=== PATIENT | female | born 1960 | race Caucasian/White ===

== ENCOUNTER 2022-11-14 07:07 | Outpatient (CLI) | payer BC, SELFPAY | END 2022-11-14 07:08 | disposition home or self-care (01) | LOC: AMB 11-15 13:31 | PROVIDERS: PCP Family Medicine; Visit Provider Family Medicine | DX: R07.0 Pain in throat (principal); R13.14 Dysphagia, pharyngoesophageal phase | CPT/HCPCS: A0425; A0429 ==

== ENCOUNTER 2022-11-14 07:26 | Day surgery (SDC) | payer BC, SELFPAY ==
[2022-11-14] VITALS (30 sets, daily range): BP systolic 103–156; BP diastolic 60–87; PULSE 94–108; RESP 15–20; TEMP 36.6–38.2; O2SAT 91–100; BMI 28.9
--- NOTE | 2022-11-14 07:59 | CRLHL7_ITS ---
For Patients: As a result of the Century Cures Act, medical imaging exams and procedure reports are released immediately into your electronic medical record. You may view this report before your referring provider. If you have questions, please contact your health care provider. INDICATION: r/o left peritonsillar abscess TECHNIQUE: CT soft tissue of the neck was acquired with ISOUVE 370 93CC IV contrast. COMPARISON: None. FINDINGS: Dental amalgam streak artifact limits evaluation of adjacent structures. Skull base: Unremarkable. Pharynx/Larynx/Trachea: Prominence of the left greater than right palatine tonsils. Heterogenous left intratonsillar hypodensity measuring 1.8 x 2.5 x 2.1 cm. There is associated moderate effacement on the glossal tonsillar sulcus and oropharyngeal airway. Smaller right tonsil hypodensity them during the due to dental amalgam streak artifact. Mild left parapharyngeal inflammation. Effacement of the left piriform sinus. Apposition of the vocal cords. Epiglottis is normal. Salivary glands: Unremarkable. Thyroid gland: Hypodense left thyroid nodule measuring 1.4 cm. Lymph nodes: Left level IIa lymph node measures 1.2 cm. Vessels: Unremarkable for age. Bones: Unremarkable for age. Misc: No inflammation, mass or fluid collection. Lung apices: Unremarkable. IMPRESSION: Prominence of the left greater than right palatine tonsils. Heterogenous left intratonsillar hypodensity measuring 1.8 x 2.5 x 2.1 cm, concerning for intra tonsillar abscess. Mass felt less likely but recommend follow-up to ensure resolution. There is associated moderate effacement on the glossal tonsillar sulcus and oropharyngeal airway. Mild left parapharyngeal inflammation. Nonspecific effacement of the left piriform sinus. Apposition of the vocal cords. Mildly prominent left level 2 lymph node which is nonspecific and may be reactive. Hypodense left thyroid nodule measuring 1.4 cm. Recommend nonemergent thyroid ultrasound if not previously performed. Please note that all CT scans at this facility use dose modulation, iterative reconstruction, and/or weight-based dosing when appropriate to reduce radiation dose to as low as reasonably achievable. Dictated by Panda Fong MD @ 11/14/2022 9:33:09 AM (Electronically Signed)
--- NOTE | 2022-11-14 08:02 | ED_ITS ---
HPI - General Adult General Time Seen by Provider: 08:03 Date Seen: 11/14/22 Chief complaint: Sore Throat Stated complaint: Sore throat Time Seen by Provider: 11/14/22 07:52 Source: patient Mode of arrival: ambulatory Limitations: no limitations History of Present Illness HPI narrative: Patient is a 62-year-old female presents with a significant sore throat left-beckie ed, she has got some muffled voice. Is unable open her mouth fully. Patient reports that she has felt this for last couple of days, she has got a past medical history of hypertension depression and questionable seizure disorder for which is on medication. The patient reports she is able to swallow but difficulty she has good amount of pain on the left side of her throat no other specific concerns, no chest pain, no shortness of breath, no breathing difficulty. She has been generally healthy recently Related Data Home Medications Medication Instructions Recorded Confirmed folic acid 1 mg tablet 1 mg PO DAILY 11/14/22 11/14/22 hydroxychloroquine 200 mg tablet 400 mg PO DAILY 11/14/22 11/14/22 levetiracetam 500 mg tablet 500 mg PO BID 11/14/22 11/14/22 lisinopril 10 1 tab PO DAILY 11/14/22 11/14/22 mg-hydrochlorothiazide 12.5 mg tablet venlafaxine 75 mg tablet 225 mg PO Q12H 11/14/22 11/14/22 Allergies Allergy/AdvReac Type Severity Reaction Status Date / Time aspirin Allergy Anaphylaxis Verified 11/14/22 07:39 Review of Systems Status of ROS: Reports: 6 or more systems reviewed and unremarkable except as noted in History and below [facility] Medical History (Updated 11/14/22 @ 11:55 by Alfonso Ventura MD) Abscess, intratonsillar Social History Highest level of school completed/degree received: Bachelor's degree Smoking Status: Never smoker How often do you have a drink containing alcohol: 4 or more times a week Alcohol type: beer How many standard drinks containing alcohol do you have on a typical day: 1 or 2 How often do you have six or more drinks on one occasion: Daily or almost daily AUDIT-C Alcohol total score: 8 Non-prescribed substance use: denies use Caffeine: No service: No Exam Narrative: Exam Narrative: Objective vital signs are unremarkable she is afebrile O2 sat 97% on room air General she is in mild distress and discomfort noncyanotic ThroaShows some swelling around the left peritonsillar area she got diffusely red throat, no tongue swelling, mild exudate in the posterior pharynx Is able to move her neck fully Pulse regular Abdomen benign soft Extremities are no edema Const: Vital Signs, click to edit/add: Vital Signs - 24 hr 11/14/22 07:30 11/14/22 08:26 11/14/22 08:02 Temperature 97.8 F Pulse Rate 102 H Pulse Rate [Left P ulse Oximeter] Pulse Rate [Pulse Oximeter] 102 H Respiratory Rate 20 Blood Pressure 127/75 Blood Pressure [Le ft Arm] Blood Pressure [Ri ght Upper Arm] 145/76 H Pulse Oximetry 97 97 94 Oxygen Delivery Me thod Room Air 11/14/22 08:32 11/14/22 09:32 11/14/22 09:33 Temperature Pulse Rate 101 H 102 H 103 H Pulse Rate [Left P ulse Oximeter] Pulse Rate [Pulse Oximeter] Respiratory Rate Blood Pressure 128/71 120/67 Blood Pressure [Le ft Arm] Blood Pressure [Ri ght Upper Arm] Pulse Oximetry 96 94 94 Oxygen Delivery Me thod 11/14/22 09:45 11/14/22 10:00 11/14/22 10:02 Temperature Pulse Rate 100 101 H 102 H Pulse Rate [Left P ulse Oximeter] Pulse Rate [Pulse Oximeter] Respiratory Rate Blood Pressure 137/81 Blood Pressure [Le ft Arm] Blood Pressure [Ri ght Upper Arm] Pulse Oximetry 93 95 94 Oxygen Delivery Me thod 11/14/22 10:15 11/14/22 10:30 11/14/22 10:32 Temperature Pulse Rate 101 H 102 H 102 H Pulse Rate [Left P ulse Oximeter] Pulse Rate [Pulse Oximeter] Respiratory Rate Blood Pressure 128/60 Blood Pressure [Le ft Arm] Blood Pressure [Ri ght Upper Arm] Pulse Oximetry 94 95 95 Oxygen Delivery Me thod 11/14/22 10:45 11/14/22 13:08 Temperature 99.2 F Pulse Rate 108 H Pulse Rate [Left P ulse Oximeter] 99 Pulse Rate [Pulse Oximeter] Respiratory Rate 18 Blood Pressure Blood Pressure [Le ft Arm] 116/67 Blood Pressure [Ri ght Upper Arm] Pulse Oximetry 95 94 Oxygen Delivery Me thod Room Air Course Vital Signs Vital signs: Initial Vital Signs Temperature 97.8 F 11/14/22 07:30 Temperature Source Temporal Artery Scan 11/14/22 07:30 Pulse Rate 102 H 11/14/22 07:30 Respiratory Rate 20 11/14/22 07:30 Blood Pressure 145/76 H 11/14/22 07:30 Blood Pressure Mean 99 11/14/22 07:30 Pulse Oximetry 97 11/14/22 07:30 Oxygen Delivery Method 11/14/22 07:30 Vital Signs Temperature 97.8 F 11/14/22 07:30 Pulse Rate 102 H 11/14/22 07:30 Respiratory Rate 20 11/14/22 07:30 Blood Pressure 145/76 H 11/14/22 07:30 Pulse Oximetry 97 11/14/22 07:30 Oxygen Delivery Method 11/14/22 07:30 Temperature 99.2 F 11/14/22 13:08 Pulse Rate 99 11/14/22 13:08 Respiratory Rate 18 11/14/22 13:08 Blood Pressure 116/67 11/14/22 13:08 Pulse Oximetry 94 11/14/22 13:08 Oxygen Delivery Method 11/14/22 13:08 Medical Decision Making MDM Narrative Medical decision making narrative: Patient is a 62 year white female presents with severe sore throat left-sided mild trismus, mild swelling on the left side rule out peritonsillar abscess. Patient will get a CT scan of the neck with contrast for soft tissue analysis, lab studies, IV fluid, IV morphine, IV Solu-Medrol and Unasyn. ENT consult as needed. Will review the CT is returns. She was comfortable this plan Lab Data Labs: Lab Results 11/14/22 11/14/22 11/14/22 Range/Units 07:45 07:45 08:00 WBC 14.65 H (4.50-11.00) K/uL RBC 4.33 (4.00-5.20) m/uL Hgb 13.9 (12.0-16.0) gm/dL Hct 41.5 (33.0-51.0) % MCV 96 (80-100) fL MCH 32 (26-34) pg MCHC 34 (32-36) gm/dL RDW Coeff of Colleen 12.1 (11.5-15.5) % Plt Count 300 (140-440) K/uL Neut % (Auto) 85.3 H (42.0-72.0) % Lymph % (Auto) 6.9 L (20-44) % Wise % (Auto) 7.5 (0.0-11.0) % Eos % (Auto) 0.0 (0.0-7.0) % Baso % (Auto) 0.0 (0.0-3.0) % Neut # (Auto) 12.50 H (1.7-7.0) K/uL Lymph # (Auto) 1.00 (0.90-2.90) K/uL Wise # (Auto) 1.10 H (0.00-0.90) K/UL Eos # (Auto) 0.00 (0.00-0.50) K/uL Baso # (Auto) 0.00 (0.00-0.30) K/uL Sodium 131 L (135-149) mmol/L Potassium 4.2 (3.6-5.1) mmol/L Chloride 100 (96-114) mmol/L Carbon Dioxide 25 (20-32) mmol/L BUN 11 (7-30) mg/dL Creatinine 0.5 (0.5-1.5) mg/dL Estimated Creat Clear 59.60 Estimated GFR 107 ml/min Glucose 117 H (60-115) mg/dL Calcium 8.9 (8.4-10.6) mg/dL Total Bilirubin 1.0 (0.1-1.5) mg/dL Direct Bilirubin 0.2 (0.0-0.5) mg/dL AST 16 (12-35) U/L ALT 29 (4-35) U/L Alkaline Phosphatase 78 (40-150) U/L C-Reactive Protein 16.6 H (0.5-1.0) mg/dL Total Protein 7.6 (6.0-8.3) g/dL Albumin 4.2 (3.3-5.0) g/dL SARS-CoV-2 (PCR) Negative SARS-CoV-2 (Negative) Influenza Type A (PCR) Negative PCR FLU A (Negative) Influenza Type B (PCR) Negative PCR FLU B (Negative) RSV (PCR) Negative PCR RSV (Negative) Group A Strep DNA (Not Detectd) 11/14/22 Range/Units 08:00 WBC (4.50-11.00) K/uL RBC (4.00-5.20) m/uL Hgb (12.0-16.0) gm/dL Hct (33.0-51.0) % MCV (80-100) fL MCH (26-34) pg MCHC (32-36) gm/dL RDW Coeff of Colleen (11.5-15.5) % Plt Count (140-440) K/uL Neut % (Auto) (42.0-72.0) % Lymph % (Auto) (20-44) % Wise % (Auto) (0.0-11.0) % Eos % (Auto) (0.0-7.0) % Baso % (Auto) (0.0-3.0) % Neut # (Auto) (1.7-7.0) K/uL Lymph # (Auto) (0.90-2.90) K/uL Wise # (Auto) (0.00-0.90) K/UL Eos # (Auto) (0.00-0.50) K/uL Baso # (Auto) (0.00-0.30) K/uL Sodium (135-149) mmol/L Potassium (3.6-5.1) mmol/L Chloride (96-114) mmol/L Carbon Dioxide (20-32) mmol/L BUN (7-30) mg/dL Creatinine (0.5-1.5) mg/dL Estimated Creat Clear Estimated GFR ml/min Glucose (60-115) mg/dL Calcium (8.4-10.6) mg/dL Total Bilirubin (0.1-1.5) mg/dL Direct Bilirubin (0.0-0.5) mg/dL AST (12-35) U/L ALT (4-35) U/L Alkaline Phosphatase (40-150) U/L C-Reactive Protein (0.5-1.0) mg/dL Total Protein (6.0-8.3) g/dL Albumin (3.3-5.0) g/dL SARS-CoV-2 (PCR) (Negative) Influenza Type A (PCR) (Negative) Influenza Type B (PCR) (Negative) RSV (PCR) (Negative) Group A Strep DNA NOT DETECTED (Not Detectd) Discharge Plan Discharge Clinical Impression: Acute tonsillitis, Abscess, peritonsillar Patient Disposition: Admitted As Inpatient
[2022-11-14] MEDS: METHYLPREDNISOLONE SOD SUCC 62.5 MG/ML (125) 125 MG IVP (08:18)
[2022-11-14] MEDS: 0.9 % SODIUM CHLORIDE 1000 ml 1,000 ML 6000 ML IV (08:18)
[2022-11-14] MEDS: AMPICILLIN/SULBACTAM 3 GM in 0.9 % SODIUM CHLORIDE Mini-bag 100 ML IVPB ×2 (08:19→17:25)
[2022-11-14] MEDS: MORPHINE 4 MG/ML INJ IVP (08:21)
[2022-11-14 08:23] LABS: Albumin* 4.2 g/dL (3.3-5.0); Chloride* 100 mmol/L (96-114); Potassium* 4.2 mmol/L (3.6-5.1); Sodium* 131 mmol/L (135-149)
[2022-11-14 08:25] LABS: Creatinine* 0.5 mg/dL (0.5-1.5); Estimated Glomerular Filt Rate 107 ml/min
[2022-11-14 08:26] LABS: Alanine Aminotransferase* 29 U/L (4-35); Alkaline Phosphatase* 78 U/L (40-150); Aspartate Amino Transferase* 16 U/L (12-35); Bilirubin Direct* 0.2 mg/dL (0.0-0.5); Blood Urea Nitrogen* 11 mg/dL (7-30); Carbon Dioxide* 25 mmol/L (20-32); Glucose* 117 mg/dL (60-115); Total Protein* 7.6 g/dL (6.0-8.3)
[2022-11-14 08:27] LABS: Calcium* 8.9 mg/dL (8.4-10.6)
[2022-11-14 08:34] LABS: Hematocrit 41.5 % (33.0-51.0); Hemoglobin* 13.9 gm/dL (12.0-16.0); Immature Granulocytes Pct Auto 0.3 %; Lymphocytes Percent Auto 6.9 % (20-44); Mean Corpuscular HGB Conc 34 gm/dL (32-36); Mean Corpuscular Hemoglobin 32 pg (26-34); Mean Corpuscular Volume 96 fL (80-100); Monocytes Percent Auto 7.5 % (0.0-11.0); Neutrophils Percent Auto 85.3 % (42.0-72.0); Platelet Count* 300 K/uL (140-440); RDW Coefficient of Variation % 12.1 % (11.5-15.5); Red Blood Count 4.33 m/uL (4.00-5.20); White Blood Count* 14.65 K/uL (4.50-11.00)
[2022-11-14 08:44] LABS: Strep A DNA Probe* NOT DETECTED (Not Detectd)
[2022-11-14 08:53] LABS: PCR FLU A Negative PCR FLU A (Negative); PCR FLU B Negative PCR FLU B (Negative); PCR RSV Negative PCR RSV (Negative)
[2022-11-14 08:56] LABS: Slide Review Reflex No
[2022-11-14 08:57] LABS: C Reactive Protein* 16.6 mg/dL (0.5-1.0)
[2022-11-14 09:00] LABS: SARS PCR* Negative SARS-CoV-2 (Negative)
--- NOTE | 2022-11-14 11:09 | ED.NURSE ---
ENT at bedside.
--- NOTE | 2022-11-14 11:53 | W.PM.ENTCN ---
HPI- ENT Consult Date of Consult Time Seen by Provider: 11:00 Date Seen: 11/14/22 Consult date: 11/14/22 Requesting Physician: Other Primary Care Provider: Case Gao MD Consult Narrative Reason for consult: Left tonsil abscess Narrative: Mora Galeas is a 62 year old female with no prior history of tonsillitis in adulthood but did have history of tonsillitis in childhood now presents with a 3 day history of sore throat. Mild trismus significant odynophagia and dysphagia. No airway distress CT reviewed shows left intra tonsillar abscess per Radiology with mild effacement of left piriform sinus and no airway obstruction PFSH PFSH Medical History (Updated 11/14/22 @ 11:55 by Alfonso Ventura MD) Abscess, intratonsillar Social History Smoking Status: Smoker, status unknown Non-prescribed substance use: denies use Meds Home Medications and Allergies Home Medications Medication Instructions Recorded Confirmed Type folic acid 1 mg tablet 1 mg PO DAILY 11/14/22 11/14/22 History hydroxychloroquine 200 mg tablet 400 mg PO DAILY 11/14/22 11/14/22 History levetiracetam 500 mg tablet 500 mg PO BID 11/14/22 11/14/22 History lisinopril 10 1 tab PO DAILY 11/14/22 11/14/22 History mg-hydrochlorothiazide 12.5 mg tablet venlafaxine 75 mg tablet 225 mg PO Q12H 11/14/22 11/14/22 History Allergies Allergy/AdvReac Type Severity Reaction Status Date / Time aspirin Allergy Anaphylaxis Verified 11/14/22 07:39 Exam Narrative: Exam Narrative: general skin neuro respiratory gait peripheral vascular vocal quality skin of head neck are negative. Minimal trismus. Very large left tonsil. Hypopharynx larynx clear airway below the left tonsil. Mild edema left piriform region neck tenderness on entire left upper neck no significant erythema mild edema Const: Vital Signs, click to edit/add: Vital Signs - 24 hr 11/14/22 07:30 11/14/22 08:26 11/14/22 08:02 Temperature 97.8 F Pulse Rate 102 H Pulse Rate [Pulse Oximeter] 102 H Respiratory Rate 20 Blood Pressure 127/75 Blood Pressure [Ri ght Upper Arm] 145/76 H Pulse Oximetry 97 97 94 Oxygen Delivery Me thod Room Air 11/14/22 08:32 11/14/22 09:32 Temperature Pulse Rate 101 H 102 H Pulse Rate [Pulse Oximeter] Respiratory Rate Blood Pressure 128/71 120/67 Blood Pressure [Ri ght Upper Arm] Pulse Oximetry 96 94 Oxygen Delivery Me thod ENT-CN: Result Labs Labs: Short CBC 11/14/22 Range/Units 07:45 WBC 14.65 H (4.50-11.00) K/uL Hgb 13.9 (12.0-16.0) gm/dL Hct 41.5 (33.0-51.0) % Plt Count 300 (140-440) K/uL BMP 11/14/22 07:45 Sodium 131 L Potassium 4.2 Chloride 100 Carbon Dioxide 25 BUN 11 Creatinine 0.5 Glucose 117 H Calcium 8.9 Liver Function 11/14/22 Range/Units 07:45 Total Bilirubin 1.0 (0.1-1.5) mg/dL Direct Bilirubin 0.2 (0.0-0.5) mg/dL AST 16 (12-35) U/L ALT 29 (4-35) U/L Alkaline Phosphatase 78 (40-150) U/L Albumin 4.2 (3.3-5.0) g/dL Assessment and Plan Assessment and plan (1) Abscess, intratonsillar: Status: Acute Plan left intra tonsillar abscess per Radiology cannot completely rule out to this is peritonsillar. She has mild involvement of parapharyngeal space but no abscess present there and mild edema adjacent to the glottis but airway is perfectly clear at this time. Discussed options with her. Given the level of glottic edema I think a be navarro to drain this abscess and observe her overnight. Depending on difficulty of intubation we may need to have her remain intubated I did discuss that with her. Risks including anesthesia bleeding recurrence failure to achieveDesired results difficult intubation for long intubation etc. were all reviewed she understands and wishes to proceed
--- NOTE | 2022-11-14 12:42 | ED.NURSE ---
Per [facility], Pt can be brought to [facility] to wait for surgery. Attempted to call [facility] RN to give report, was told they would call back.
--- NOTE | 2022-11-14 12:45 | ED.NURSE ---
Pt brought by [facility] to [facility] via cart.
--- NOTE | 2022-11-14 12:51 | ED.NURSE ---
Report given to SRAVANI Perez.
--- NOTE | 2022-11-14 14:49 | W.PM.ENTPROC ---
Procedure Note Date of procedure: 11/14/22 Procedure: Preoperative diagnosis left izzy versus intra tonsillar abscess with 6 mild glottic edema left Postoperative diagnosis same abscess appeared to be more peritonsillar than intra tonsillar Procedure incision drainage left peritonsillar abscess with laryngoscopy The patient was prepped and draped in usual fashion. Has general endotracheal anesthesia was induced the glide scope was used by anesthesia to visualize the larynx there appeared to be no significant obstruction of the airway. The left tonsil was markedly enlarged and the swelling of the posterior anterior pillars. This did not include airway and anyway. McIvor mouth gag was then introduced after intubation and the tongue retracted forward. Needlepoint cautery was used to make an incision above the superior pole of the tonsil. Sharp and blunt dissection was used to enter the abscess cavity and a large volume of pus was encountered. This was cultured and aspirated. The cavity was explored with blunt dissection and then copiously irrigated with normal saline. After pushing on the tonsil no other abscess was encountered. I did make an incision into the tonsil midportion to be sure there was no intra tonsillar abscess. Again blunt dissection was used after incising with a needlepoint cautery and no purulence was encountered. I made a small incision in the posterior pillar inferiorly at a as there were cellulitic changes there but again no pus was encountered. The uvula was quite edematous and the lower 3 mm was amputated to allow decompression. Bleeding was controlled with the Coblation Wand. Patient was extubated in the operating room after 1st doing a deflation test with the cuff. She did well on this. She tolerated procedure well was taken recovery in satisfactory condition. Blood loss during procedure was less than 10 mL. There were no complications Surgeon: Alfonso Ventura MD
--- NOTE | 2022-11-14 15:02 | P.ANES_ITS ---
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
[2022-11-14] MEDS: LACTATED RINGERS 1000 ML 1,000 ML 35 ML IV (15:10)
--- NOTE | 2022-11-14 16:53 | PM.IMHP1 ---
Hospitalist- H&P: HPI History of Present Illness Date Seen: 11/14/22 Chief complaint: Sore throat Narrative: Mora Galeas is a 62 year old female who presented to the emergency room today with a sore throat and left-sided neck swelling. CT scan in the emergency room exhibited concerns for left intratonsillar vs peritonsillar abscess. She was taken to the OR by Dr. Ventura of ENT, I&D of left peritonsillar abscess performed. Patient was able to be extubated postoperatively, she will recover in the hospital this evening and continue IV Unasyn and steroids. When I see patient, she is awake and has no concerns for the hospitalist team. We reviewed her past medical history and medications. PCP is Dr. Gao locally, also follows with Rheumatology for her RA. Review of Systems Status of ROS: Reports: 10 or more systems reviewed and unremarkable except as noted in History and below [facility] Medical History (Updated 11/14/22 @ 18:12 by Irina Ordaz MD) Abscess, intratonsillar Anxiety Essential hypertension Rheumatoid arthritis Seizure Thyroid nodule Surgical History (Updated 11/14/22 @ 17:15 by Irina Ordaz MD) H/O tubal ligation History of carpal tunnel release History of section History of total knee arthroplasty S/P ORIF (open reduction internal fixation) fracture Social History (Updated 11/14/22 @ 17:10 by Irina Ordaz MD) Narrative: Lives with locally, 3 adult children. 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 Nonsmoker, beer 3-4 nights a week. No history of ETOH withdrawal. Highest level of school completed/degree received: Bachelor's degree Smoking Status: Never smoker How often do you have a drink containing alcohol: 4 or more times a week Alcohol type: beer How many standard drinks containing alcohol do you have on a typical day: 1 or 2 How often do you have six or more drinks on one occasion: Daily or almost daily AUDIT-C Alcohol total score: 8 Non-prescribed substance use: denies use Caffeine: No service: No Meds Home Medications and Allergies Home Medications Medication Instructions Recorded Confirmed Type folic acid 1 mg tablet 1 mg PO DAILY 11/14/22 11/14/22 History hydroxychloroquine 200 mg tablet 400 mg PO DAILY 11/14/22 11/14/22 History levetiracetam 500 mg tablet 500 mg PO BID 11/14/22 11/14/22 History lisinopril 10 1 tab PO DAILY 11/14/22 11/14/22 History mg-hydrochlorothiazide 12.5 mg tablet venlafaxine 75 mg tablet 225 mg PO Q12H 11/14/22 11/14/22 History Home Medication Comments: Also on Enbrel every Tuesday, and prn Prednisone for RA flares (last take approximately 1 week ago) Allergies Allergy/AdvReac Type Severity Reaction Status Date / Time aspirin Allergy Anaphylaxis Verified 11/14/22 07:39 Exam Narrative: Exam Narrative: GEN: Alert and oriented, answering questions appropriately, nontoxic in appearance HEENT: EOMIs bilaterally, no scleral icterus, no trismus, posterior oropharynx is patent, full ROM of neck CV: RRR, No concerning murmurs, rubs, or gallops R: LCTA bilaterally without concerning wheezing, air movement adequate Ext: wwp, no concerning edema Skin: No concerning skin lesions or rashes on exposed skin Neuro: No focal deficits Psych: Appropriate Const: Vital Signs, click to edit/add: Vital Signs - 24 hr 11/14/22 07:30 11/14/22 08:26 11/14/22 08:02 Temperature 97.8 F Pulse Rate 102 H Pulse Rate [Left P ulse Oximeter] Pulse Rate [Pulse Oximeter] 102 H Respiratory Rate 20 Blood Pressure 127/75 Blood Pressure [Le ft Arm] Blood Pressure [Ri ght Upper Arm] 145/76 H Pulse Oximetry 97 97 94 [facility] 11/14/22 08:32 11/14/22 09:32 11/14/22 09:33 Temperature Pulse Rate 101 H 102 H 103 H Pulse Rate [Left P ulse Oximeter] Pulse Rate [Pulse Oximeter] Respiratory Rate Blood Pressure 128/71 120/67 Blood Pressure [Le ft Arm] Blood Pressure [Ri ght Upper Arm] Pulse Oximetry 96 94 94 Oxygen Delivery Me thod 11/14/22 09:45 11/14/22 10:00 11/14/22 10:02 Temperature Pulse Rate 100 101 H 102 H Pulse Rate [Left P ulse Oximeter] Pulse Rate [Pulse Oximeter] Respiratory Rate Blood Pressure 137/81 Blood Pressure [Le ft Arm] Blood Pressure [Ri ght Upper Arm] Pulse Oximetry 93 95 94 Oxygen Delivery Me thod 11/14/22 10:15 11/14/22 10:30 11/14/22 10:32 Temperature Pulse Rate 101 H 102 H 102 H Pulse Rate [Left P ulse Oximeter] Pulse Rate [Pulse Oximeter] Respiratory Rate Blood Pressure 128/60 Blood Pressure [Le ft Arm] Blood Pressure [Ri ght Upper Arm] Pulse Oximetry 94 95 95 Oxygen Delivery [place] thod 11/14/22 10:45 11/14/22 13:08 11/14/22 15:00 Temperature 99.2 F 100.8 F H Pulse Rate 108 H 107 H Pulse Rate [Left P ulse Oximeter] 99 Pulse Rate [Pulse Oximeter] Respiratory Rate 18 18 Blood Pressure 155/82 H Blood Pressure [Le ft Arm] 116/67 Blood Pressure [Ri ght Upper Arm] Pulse Oximetry 95 94 98 [facility] Air 11/14/22 15:05 11/14/22 15:10 11/14/22 15:15 Temperature Pulse Rate 105 H 101 H 102 H Pulse Rate [Left P ulse Oximeter] Pulse Rate [Pulse Oximeter] Respiratory Rate 18 18 Blood Pressure 156/86 H 140/87 H 133/83 Blood Pressure [Le ft Arm] Blood Pressure [Ri ght Upper Arm] Pulse Oximetry 100 100 100 Oxygen Delivery [facility] Room Air 11/14/22 15:20 11/14/22 15:25 Temperature 100.2 F H Pulse Rate 101 H 102 H Pulse Rate [Left P ulse Oximeter] Pulse Rate [Pulse Oximeter] Respiratory Rate 18 18 Blood Pressure 155/77 H 154/80 H Blood Pressure [Le ft Arm] Blood Pressure [Ri ght Upper Arm] Pulse Oximetry 100 98 [facility] Hospitalist - H&P: Result Labs Labs: Short CBC 11/14/22 Range/Units 07:45 WBC 14.65 H (4.50-11.00) K/uL Hgb 13.9 (12.0-16.0) gm/dL Hct 41.5 (33.0-51.0) % Plt Count 300 (140-440) K/uL BMP 11/14/22 07:45 Sodium 131 L Potassium 4.2 Chloride 100 Carbon Dioxide 25 BUN 11 Creatinine 0.5 Glucose 117 H Calcium 8.9 Liver Function 11/14/22 Range/Units 07:45 Total Bilirubin 1.0 (0.1-1.5) mg/dL Direct Bilirubin 0.2 (0.0-0.5) mg/dL AST 16 (12-35) U/L ALT 29 (4-35) U/L Alkaline Phosphatase 78 (40-150) U/L Albumin 4.2 (3.3-5.0) g/dL Assessment and Plan Assessment and plan (1) Abscess, peritonsillar: Problem comment: - s/p I&D with ENT 11/14 - continue Unasyn and steroids, monitor overnight given immunosuppressed status Status: Acute (2) Rheumatoid arthritis: Problem comment: - continue home meds Status: Acute (3) Essential hypertension: Problem comment: - continue home medications Status: Acute Plan - per above - likely home with tomorrow
[2022-11-14] MEDS: dexAMETHasone 10 MG/ML inj IVP (17:23)
--- NOTE | 2022-11-14 20:06 | PC.NURSE ---
Nursing Care Hours: [id number] Pt this shift arrived from ED with abscess of left side throat. Surgical drainage done, pt tolerated well. Airway remained patent this stay, stable on room air. No c/o pain after surgery, tolerated an advancing diet. Pt a little tachycardic at 95-105.
[2022-11-14] MEDS: levETIRAcetam 500 MG TABLET PO (21:15)
[2022-11-15] MEDS: AMPICILLIN/SULBACTAM 3 GM in 0.9 % SODIUM CHLORIDE Mini-bag 100 ML IVPB ×3 (00:13→09:59)
[2022-11-15 06:30] LABS: Hematocrit 41.4 % (33.0-51.0); Hemoglobin* 13.7 gm/dL (12.0-16.0); Immature Granulocytes Pct Auto 0.3 %; Lymphocytes Percent Auto 5.6 % (20-44); Mean Corpuscular HGB Conc 33 gm/dL (32-36); Mean Corpuscular Hemoglobin 32 pg (26-34); Mean Corpuscular Volume 97 fL (80-100); Monocytes Percent Auto 5.7 % (0.0-11.0); Neutrophils Percent Auto 88.4 % (42.0-72.0); Platelet Count* 325 K/uL (140-440); RDW Coefficient of Variation % 12.2 % (11.5-15.5); Red Blood Count 4.25 m/uL (4.00-5.20); White Blood Count* 18.18 K/uL (4.50-11.00)
[2022-11-15 06:32] LABS: Slide Review Reflex No
[2022-11-15 07:00] VITALS: PULSE 89; RESP 18; O2SAT 95
[2022-11-15 07:04] LABS: Chloride* 103 mmol/L (96-114)
[2022-11-15 07:05] LABS: Potassium* 5.1 mmol/L (3.6-5.1); Sodium* 137 mmol/L (135-149)
[2022-11-15 07:07] LABS: Creatinine* 0.5 mg/dL (0.5-1.5); Estimated Glomerular Filt Rate 107 ml/min
[2022-11-15 07:08] LABS: Blood Urea Nitrogen* 16 mg/dL (7-30); Carbon Dioxide* 30 mmol/L (20-32); Glucose* 152 mg/dL (60-115)
[2022-11-15 07:09] LABS: Calcium* 9.2 mg/dL (8.4-10.6)
[2022-11-15 07:28] LABS: C Reactive Protein* 16.1 mg/dL (0.5-1.0)
--- NOTE | 2022-11-15 07:37 | PC.NURSE ---
Pt sleepy but easily aroused. VSS she is up voiding without difficulty. Tolerating food and drink. Reports no pain. No pain meds given.
[2022-11-15] MEDS: VENLAFAXINE HCL 37.5 MG TABLET 225 MG PO (08:50)
[2022-11-15] MEDS: levETIRAcetam 500 MG TABLET PO (08:50)
[2022-11-15] MEDS: HYDROXYCHLOROQUINE 200 MG TABLET 400 MG PO (08:50)
[2022-11-15] MEDS: hydroCHLOROthiazide 12.5 MG CAPSULE PO (08:50)
[2022-11-15] MEDS: lisinopriL 10 MG TABLET PO (08:50)
[2022-11-15] MEDS: FOLIC ACID 1 MG TABLET PO (08:50)
[2022-11-15] MEDS: SODIUM CHLORIDE 0.9 % (FLUSH) 10 ML SYRINGE 5 ML IVF (08:53)
--- NOTE | 2022-11-15 09:31 | P.DS_ITS ---
DS: Providers Provider Date Seen: 11/15/22 Primary care physician: Case Gao MD Admitting Clinician: Alfonso Ventura MD Attending Physician on discharge: Irina Ordaz MD Date of Discharge: 11/15/22 DS: Diagnosis Discharge Diagnosis (1) Abscess, peritonsillar: Status: Acute Problem details: - s/p I&D with ENT 11/14 - did well postoperatively, continued IV Unasyn and will d/c home on Augmentin with close ENT f/u (2) Rheumatoid arthritis: Status: Acute Problem details: - continued home meds, routine f/u with PCP and [employer] (3) Essential hypertension: Status: Acute DS: Summary Hospital Course Hospital Course: 62-year-old female, presented to the hospital for left peritonsillar abscess. She had an I&D with Dr. Luis M Mehta of ENT, did well postoperatively and was monitored overnight while IV antibiotics were continued. She felt back to baseline on postop day 1, requesting discharge home with close ENT and PCP follow-up. Comorbidities remained stable. Status at Discharge Functional status at discharge: independent ambulation Overall status at discharge: patient is back to baseline Time Spent with Patient Time attestation: Total time spent providing and/or coordinating discharge services: Time spent: Less than 30 minutes Exam Narrative: Exam Narrative: GEN: Alert and oriented, sitting in bedside chair, speaking in full sentences with normal voice quality HEENT: EOMIs bilaterally, no scleral icterus, no trismus, posterior oropharynx is patent CV: RRR (heart rate in the 80s during my exam), No concerning murmurs, rubs, or gallops R: LCTA bilaterally without concerning wheezing, air movement adequate Ext: wwp, no concerning edema Skin: No concerning skin lesions or rashes on exposed skin Neuro: No focal deficits Psych: Appropriate Const: Vital Signs, click to edit/add: Vital Signs - 24 hr 11/14/22 09:32 11/14/22 09:33 11/14/22 09:45 Temperature Pulse Rate 102 H 103 H 100 Pulse Rate [Left P ulse Oximeter] Respiratory Rate Blood Pressure 120/67 Blood Pressure [Le ft Arm] Pulse Oximetry 94 94 93 Oxygen Delivery Me thod 11/14/22 10:00 11/14/22 10:02 11/14/22 10:15 Temperature Pulse Rate 101 H 102 H 101 H Pulse Rate [Left P ulse Oximeter] Respiratory Rate Blood Pressure 137/81 Blood Pressure [Le ft Arm] Pulse Oximetry 95 94 94 Oxygen Delivery Me thod 11/14/22 10:30 11/14/22 10:32 11/14/22 10:45 Temperature Pulse Rate 102 H 102 H 108 H Pulse Rate [Left P ulse Oximeter] Respiratory Rate Blood Pressure 128/60 Blood Pressure [Le ft Arm] Pulse Oximetry 95 95 95 Oxygen Delivery Me thod 11/14/22 13:08 11/14/22 15:00 11/14/22 15:05 Temperature 99.2 F 100.8 F H Pulse Rate 107 H 105 H Pulse Rate [Left P ulse Oximeter] 99 Respiratory Rate 18 18 18 Blood Pressure 155/82 H 156/86 H Blood Pressure [Le ft Arm] 116/67 Pulse Oximetry 94 98 100 Oxygen Delivery Me od Room Air Room Air 11/14/22 15:10 11/14/22 15:15 11/14/22 15:20 Temperature Pulse Rate 101 H 102 H 101 H Pulse Rate [Left P ulse Oximeter] Respiratory Rate 18 18 Blood Pressure 140/87 H 133/83 155/77 H Blood Pressure [Le ft Arm] Pulse Oximetry 100 100 100 Oxygen Delivery Me od Room Air 11/14/22 15:25 11/14/22 13:08 11/14/22 15:00 Temperature 100.2 F H Pulse Rate 102 H Pulse Rate [Left P ulse Oximeter] 99 Respiratory Rate 18 18 18 Blood Pressure 154/80 H Blood Pressure [Le ft Arm] Pulse Oximetry 98 94 Oxygen Delivery Me od Room Air Room Air 11/14/22 19:50 11/14/22 15:45 11/14/22 15:30 Temperature 100.2 F H Pulse Rate 99 Pulse Rate [Left P ulse Oximeter] 101 H Respiratory Rate 18 18 Blood Pressure Blood Pressure [Le ft Arm] 138/81 135/76 Pulse Oximetry 93 91 Oxygen Delivery Me od Room Air Room Air 11/14/22 15:45 11/14/22 16:00 11/14/22 16:15 Temperature Pulse Rate Pulse Rate [Left P ulse Oximeter] 101 H 96 95 Respiratory Rate 18 18 18 Blood Pressure Blood Pressure [Le ft Arm] 135/76 133/80 138/84 Pulse Oximetry 93 93 93 Oxygen Delivery Me thod Room Air Room Air Room Air 11/14/22 16:30 11/14/22 17:00 11/14/22 17:30 Temperature 98.8 F 98.3 F Pulse Rate Pulse Rate [Left P ulse Oximeter] 98 94 101 H Respiratory Rate 18 15 18 Blood Pressure Blood Pressure [Le ft Arm] 133/77 136/80 131/76 Pulse Oximetry 93 93 93 Oxygen Delivery Me thod Room Air Room Air Room Air 11/14/22 18:30 11/14/22 23:00 Temperature 98.3 F Pulse Rate Pulse Rate [Left P ulse Oximeter] 100 Respiratory Rate 18 Blood Pressure Blood Pressure [Le ft Arm] 103/63 Pulse Oximetry 95 Oxygen Delivery Me thod Room Air DS: Data Data Completed and Pending Labs on day of discharge: Labs from last 24 hours 11/15/22 11/15/22 06:02 06:02 WBC 18.18 H RBC 4.25 Hgb 13.7 Hct 41.4 MCV 97 MCH 32 MCHC 33 RDW Coeff of Colleen 12.2 Plt Count 325 Neut % (Auto) 88.4 H Lymph % (Auto) 5.6 L [place] % (Auto) 5.7 Eos % (Auto) 0.0 Baso % (Auto) 0.0 Neut # (Auto) 16.10 H Lymph # (Auto) 1.00 [place] # (Auto) 1.00 H Eos # (Auto) 0.00 Baso # (Auto) 0.00 Sodium 137 Potassium 5.1 Chloride 103 Carbon Dioxide 30 BUN 16 Creatinine 0.5 Estimated Creat Clear 59.60 Estimated GFR 107 Glucose 152 H Calcium 9.2 C-Reactive Protein 16.1 H Discharge Plan Discharge Disposition: Home, Self-Care Discharging Surgeon: Alfonso Ventura Follow-Up Appointment: With Dr. Ventura on Tuesday Prescriptions: New amoxicillin-pot clavulanate 875-125 mg tablet 1 tab PO Q12H Qty: 10 0RF Continued folic acid 1 mg tablet 1 mg PO DAILY levetiracetam 500 mg tablet 500 mg PO BID hydroxychloroquine 200 mg tablet 400 mg PO DAILY venlafaxine 75 mg tablet 225 mg PO Q12H lisinopril-hydrochlorothiazide 10-12.5 mg tablet 1 tab PO DAILY Enbrel SureClick 50 mg/mL (1 mL) pen injector 50 mg subcut Q7D Rx Instructions: WEEKLY methotrexate sodium 2.5 mg tablet 25 mg PO Q7D Rx Instructions: WEEKLY prednisone 5 mg tablet 5 mg PO DAILY PRN Rx Instructions: PRN RA FLARES Patient Instructions: Amoxicillin (By mouth), Peritonsillar Abscess (DC) Forms: Work/School Release Follow-up: Case Gao MD [Primary Care Provider] - (Follow up as needed) Alfonso Ventura MD [Staff Physician] - 11/17/22 1:45 pm (Formerly named [facility] office [address] [place] [address] ) Discharge Orders: Discharge Order (Routine); Ordered 11/15/22 Ordered By: Irina Ordaz
[2022-11-15 10:26] VITALS: BP 154/80; PULSE 99; RESP 18; TEMP 37.9
--- NOTE | 2022-11-15 11:15 | PC.NURSE ---
Discharge: Patient pleasant and cooperative. Patient vitally stable, lungs clear, BS WNL, IV removed, catheter intact. Patient independent in room, tolerating regular diet, urinating, and had 1 mod formed BM. Patient denies pain, and reports feeling great. Patient showered before discharge. Patient signed belongings sheet and discharge form. Patient left the floor by wheelchair with belongings at 1108.
== END 2022-11-15 11:08 | disposition home or self-care (01) ==
LOC: ED 09:29 → SS 12:54 → MEDSURG 12:59
PROVIDERS: Family Medicine; Emergency Provider Family Medicine; PCP Family Medicine; Visit Provider Otolaryngology
PROC: 0C9PXZZ Drainage of Tonsils, External Approach (ICD-10-PCS; CPT 42700; principal; 2022-11-14 15:00)
DX: J36 Peritonsillar abscess (principal); M06.9 Rheumatoid arthritis, unspecified; I10 Essential (primary) hypertension
CPT/HCPCS: 42700; 00170; 36415; 70491; 80048; 80076; 85025; 86140; 87070; 87075; 87077; 87186; 87205; 87502; 87634; 87635; 87651; 94761; 99140; 99284; 99285; A9270; J0295; J0330; J1100; J2270; J2405; J2704; J2930; J3010; J7030; J7120; Q9967

== ENCOUNTER 2023-03-27 17:28 | Outpatient (CLI) | payer BC, SELFPAY ==
--- OUTSIDE RECORDS SUMMARY | 2023-03-28 10:45 | XMS_ITS | Continuity of Care Document ---
Author Name Unknown Organization [facility] Address [address] [place] [address] Phone Care Team Providers Care Department Clinician Name Role Phone Sarah Rowan DO Unavailable [...] [facility] , [address], [place], [address], [place] tel:[phone] [facility] , No Information 3 Skemp Pearl Sarah. [address], [place], [address], [place]. tel:[phone] [facility] , [address], [place], [address], [place] tel:[phone] [facility] , No Information 3 Skemp Pearl Sarah. [address], [place], [address], [place]. tel:[phone] [facility] , [address], [place], [address], [place] tel:[phone] [facility] , No Information 3 Sk[place] Pearl Sarah. [address], [place], [address], [place]. tel:[phone] Office/Outpa tient Visit, Est [facility] , [address], [place], [address], [place] tel:[phone] [facility] , Rheumatoid arthritis (chief complaint)Mo nitor Chronic High Risk Meds (chief complaint) RA w/ rheumatoid factor of multiple sites w/o organ involvementO ther correction (current) drug therapyOther dorsalgia 3 María Denis. [facility] [address], [place], [address], [place]. tel:[phone] , [facility] [address], [place], [address].Refer ring Provider: Adeel Tang, [facility] [address], [place], [address]. tel:[phone] [facility] , [address], [place], [address], [place] tel:[phone] [facility] No Information 2 María Adeel. [facility] [address], [place], [address], [place]. tel:[phone] [facility] , [address], [place], [address], [place] tel:[phone] [facility] No Information 2 María Adeel. [facility] [address], [place], [address], [place]. tel:[phone] [facility] , [address], [place], [address], [place] tel:[phone] [facility] , No Information 2 María Adeel. [facility] [address], [place], [address], [place]. 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 [facility] [address], [place], [address], [place]. tel:[phone] , [facility] [address], [place], [address].Refer ring Provider: Adeel Tang, [facility] [address], [place], [address]. tel:[phone] [facility] , [address], [place], [address], [place] tel:[phone] [facility] , No Information 2 María Denis. [facility] [address], [place], [address], [place]. tel:[phone] Referring Provider: Adeel Tang, [facility] [address], [place], [address]. tel:[phone] Office/Outpa tient Visit, Est [facility] , [address], [place], [address], [place] tel:[phone] [facility] , Rheumatoid arthritis (chief complaint)Mo nitor Chronic High Risk Meds (chief complaint) RA w/ rheumatoid factor of multiple sites w/o organ involvementO ther correction (current) drug therapy María Denis. [facility] [address], [place], [address], [place]. tel:[phone] , [facility] [address], [place], [address].Refer ring Provider: Adeel Tang, [facility] [address], [place], [address]. 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 [facility] [address], [place], [address], [place]. tel:[phone] , [facility] [address], [place], [address].Refer ring Provider: Adeel Tang, [facility] [address], [place], [address]. tel:[phone] Office/Outpa tient Visit, Est [facility] , [address], [place], [address], [place] tel:[phone] [facility] , Rheumatoid arthritis (chief complaint)Mo nitor Chronic High Risk Meds (chief complaint) AnxietyRA w/ rheumatoid factor of multiple sites w/o organ involvementO ther correction (current) drug therapy 0 María Denis. [facility] [address], [place], [address], [place]. tel:[phone] , [facility] [address], [place], [address].Refer ring Provider: Adeel Tang, [facility] [address], [place], [address]. tel:[phone] Office/Outpa tient Visit, Est [facility] , [address], [place], [address], [place] tel:[phone] [facility] , Rheumatoid arthritis (chief complaint)Mo nitor Chronic High Risk Meds (chief complaint) AnxietyRA w/ rheumatoid factor of multiple sites w/o organ involvementO ther correction (current) drug therapy 201 9 María Denis. [facility] [address], [place], [address], [place]. tel:[phone] , [address], [place], [address].Refer ring Provider: Adeel Tang, [facility] [address], [place], [address]. 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 [facility] [address], [place], [address], [place]. tel:[phone] , [address], [place], [address].Refer ring Provider: Adeel Tang, [facility] [address], [place], [address]. tel:[phone] Office/Outpa tient Visit, Est [facility] , [address], [place], [address], [place] tel:[phone] [facility] , Rheumatoid arthritis (chief complaint)Mo nitor Chronic High Risk Meds (chief complaint) RA w/ rheumatoid factor of multiple sites w/o organ involvementO ther correction (current) drug therapyAnxie ty Nov-0 8 María Denis. [facility] [address], [place], [address], [place]. tel:[phone] Specialist: Tim Carrasquillo, [address], [place], [address]. tel:[phone] Provider: Adeel Tang, [facility] [address], [place], [address]. 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 [facility] [address], [place], [address], [place]. tel:[phone] Specialist: Tim Carrasquillo, [address], [place], [address]. tel:[phone] Provider: Adeel Tang, [facility] [address], [place], [address]. tel:[phone] [facility] , [address], [place], [address], [place] tel:[phone] [facility] , Rheumatoid arthritis (chief complaint)Mo nitor Chronic High Risk Meds (chief complaint) RA w/ rheumatoid factor of multiple sites w/o organ involvementO ther ferry terminal supervisor (current) drug therapyPain in right shoulder María Denis. [facility] [address], [place], [address], [place]. tel:[phone] Specialist: Tim Carrasquillo, [address], [place], [address]. tel:[phone] ring Provider: Adeel Tang, [facility] [address], [place], [address]. tel:[phone] Office/Outpa tient Visit, Est [facility] , [address], [place], [address], [place] tel:[phone] [facility] , Rheumatoid arthritis (chief complaint)Mo nitor Chronic High Risk Meds (chief complaint) RA w/ rheumatoid factor of multiple sites w/o organ involvementO ther correction (current) drug therapy 6 María Denis. [facility] [address], [place], [address], [place]. tel:[phone] Specialist: Tim Carrasquillo[address], [place], [address]. tel:[phone] Provider: Adeel Tang, [facility] [address], [place], [address]. tel:[phone] Office/Outpa tient Visit, Est [facility] , [address], [place], [address], [place] tel:[phone] [facility] , Rheumatoid arthritis (chief complaint)Mo nitor Chronic High Risk Meds (chief complaint) RA w/ rheumatoid factor of multiple sites w/o organ involvementO ther correction (current) drug therapyShoul velasquez joint pain María Denis. [facility] [address], [place], [address], [place]. tel:[phone] Specialist: Tim Carrasquillo, [address], [place], [address]. tel:[phone] Provider: Adeel Tang, [facility] [address], [place], [address]. tel:[phone] Office/Outpa tient Visit, Est [facility] , [address], [place], [address], [place] tel:[phone] [facility] , Rheumatoid arthritis (chief complaint)Mo nitor Chronic High Risk Meds (chief complaint) Rheumatoid arthritisThe rapeutic Drug MonitoringFi nger joint contracture Feb- María Denis. [facility] [address], [place], [address], [place]. tel:[phone] Specialist: Tim Carrasquillo, [facility] [address] [place] [address] [address], [place], [address]. tel:[phone] ring Provider: Adeel Tang, [facility] [address], [place], [address]. tel:[phone] Office/Outpa tient Visit, Est [facility] , [address], [place], [address], [place] tel:[phone] [facility] , Rheumatoid Arthritis (chief complaint) Rheumatoid ArthritisThe rapeutic Drug MonitoringPa in in joint involving lower leg María Denis. [facility] [address], [place], [address], [place]. tel:[phone] Specialist: Tim Carrasquillo, [address], [place], [address]. tel:[phone] ring Provider: Adeel Tang, [facility] [address], [place], [address]. tel:[phone] Office/Outpa tient Visit, Est [facility] , [address], [place], [address], [place] tel:[phone] [facility] , Rheumatoid Arthritis (chief complaint) Rheumatoid ArthritisThe rapeutic Drug MonitoringPa in in joint involving lower legPain in joint involving shoulder regionUnspec ified disorder of skin and subcutaneous tissue 4 María Denis. [facility] [address], [place], [address], [place]. tel:[phone] Specialist: Tim Carrasquillo, [facility] [address] [place] [address] [address], [place], [address]. tel:[phone] ring Provider: Adeel Tang, [facility] [address], [place], [address]. tel:[phone] Office/Outpa tient Visit, Est [facility] , [address], [place], [address], [place] tel:[phone] [facility] , Rheumatoid Arthritis (chief complaint) Rheumatoid ArthritisThe rapeutic Drug MonitoringPa in in joint involving shoulder region 4 María Denis. [facility] [address], [place], [address], [place]. tel:[phone] Specialist: Tim Carrasquillo, [facility] [address] [place] [address] [address], [place], [address]. tel:[phone] ring Provider: Adeel Tang, [facility] [address], [place], [address]. tel:[phone] Office/Outpa tient Visit, Est [facility] , [address], [place], [address], [place] tel:[phone] [facility] , Rheumatoid Arthritis (chief complaint) Rheumatoid ArthritisThe rapeutic Drug MonitoringLO NG-TERM (CURRENT) USE OF STEROIDS 3 María Denis. [facility] [address], [place], [address], [place]. tel:[phone] Specialist: Tim Carrasquillo, [facility] [address] [place] [address] [address], [place], [address]. tel:[phone] [facility] Provider: Adeel Tang, [facility] [address], [place], [address]. tel:[phone] Office/Outpa tient Visit, Est [facility] , [address], [place], [address], [place] tel:[phone] [facility] , Rheumatoid Arthritis (chief complaint) Rheumatoid ArthritisThe rapeutic Drug MonitoringLO NG-TERM (CURRENT) USE OF STEROIDSCoug h 3 María Denis. [facility] [address], [place], [address], [place]. tel:[phone] Specialist: Tim Carrasquillo, [facility] [address] [place] [address] [address], [place], [address]. tel:[phone] [facility] Provider: Adeel Tang, [facility] [address], [place], [address]. tel:[phone] Office/Outpa tient Visit, Est [facility] , [address], [place], [address], [place] tel:[phone] [facility] , Rheumatoid Arthritis (chief complaint) Rheumatoid ArthritisThe rapeutic Drug MonitoringLO NG-TERM (CURRENT) USE OF STEROIDS May- 3 María Denis. [facility] [address], [place], [address], [place]. tel:[phone] Specialist: Tim Carrasquillo, [facility] [address], [place], [address]. tel:[phone] ring Provider: Adeel Tang, [facility] [address], [place], [address]. tel:[phone] Office/Outpa tient Visit, Est [facility] , [address], [place], [address], [place] tel:[phone] [facility] , Rheumatoid Arthritis (chief complaint) Rheumatoid ArthritisThe rapeutic Drug MonitoringUl cer of ankle 3 María Denis. [facility] [address], [place], [address], [place]. tel:[phone] Specialist: Tim Carrasquillo, [facility] [address], [place], [address]. tel:[phone] [facility] Provider: Adeel Tang, [facility] [address], [place], [address]. tel:[phone] Office/Outpa tient Visit, Est [facility] , [address], [place], [address], [place] tel:[phone] [facility] , Rheumatoid Arthritis (chief complaint) Rheumatoid ArthritisThe rapeutic Drug MonitoringLO NG-TERM (CURRENT) USE OF STEROIDS 2 María Denis. [facility] [address], [place], [address], [place]. tel:[phone] Specialist: Tim Carrasquillo [facility] [address], [place], [address]. tel:[phone] ring Provider: Adeel Tang, [facility] [address], [place], [address]. tel:[phone] Office/Outpa tient Visit, Est [facility] , [address], [place], [address], [place] tel:[phone] [facility] , Rheumatoid Arthritis (chief complaint) Rheumatoid ArthritisLON G-TERM (CURRENT) USE OF STEROIDS 2 María Adeel. [facility] [address], [place], [address], [place]. tel:[phone] Specialist: Tim Carrasquillo, [facility] [address] [place] [address] [address], [place], [address]. tel:[phone] ring Provider: Adeel Tang, [facility] [address], [place], [address]. tel:[phone] Office/Outpa tient Visit, New [facility] , [address], [place], [address], [place] tel:[phone] [facility] , Pulmonary infiltrates (chief complaint) Unspecified inflammatory polyarthropa thyLONG-TERM (CURRENT) USE OF STEROIDS 2 María Adeel. [facility] [address], [place], [address], [place]. tel:[phone] Specialist: Tim Carrasquillo, [address], [place], [address]. tel:[phone] ring Provider: Adeel Tang, [facility] [address], [place], [address]. tel:[phone] Family History Family Member Type Diagnosis Age At Onset Sister Problem (finding) malignant neoplasm of o vary Father Problem (finding) cancer of colon Immunizations Vaccine Date Status Comments COVID-19 [employer] administered S ource: Other Provider Payers Payer name Insurance type Covered alliance party ID Celine rogers(s) [employer] [id number] Social History Type Description Quantity Date Captured [...] safety monitoring ophthalmologic evaluation. Related to Other correction (current) drug therapy Continue hydroxychlo roquine 400 [...] safety monitoring ophthalmologic evaluation. 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 Related to Other correction (current) drug therapy Continue input as ne eded with her primary care provider or psychologist/psychiatrist.Minimize prednisone usage as able. Related to Anxiety Continue input as ne eded with her primary care provider or psychologist/psychiatrist.We will pursue prednisone tapering as above. Related to Anxiety The patient will hav e CBC, Cr, transaminases and albumin performed every 3 months. Related to Other ferry terminal supervisor (current) drug therapy After discussion of potential [...] of multiple sites w/o organ involvement Continue current ant i-rheumatic medications unchanged.I will consider PFT and potential update of chest imaging. 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 Related to Other ferry terminal supervisor (current) drug therapy Continue input as ne eded with her primary care provider or psychologist/psychiatrist. Related to Anxiety The patient will hav e CBC, Cr, transaminases and albumin performed every 3 months. Related to Other ferry terminal supervisor (current) drug therapy I again urged patien [...] chest imaging.The patient may be moving to [facility] if her gets the new job that they anticipate. 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 Related to Other ferry terminal supervisor (current) drug therapy The patient will hav e CBC, Cr, transaminases and albumin performed every 3 months. Related to Other ferry terminal supervisor (current) drug therapy Continue current ant i-rheumatic medications unchanged.The patient may be moving to [facility] if her gets the new job that [...] performed every 3 months. Related to Other ferry terminal supervisor (current) drug therapy Continue current ant i-rheumatic medications unchanged. Related to RA w/ rheumatoid factor of multiple sites w/o organ involvement Continue current ant i-rheumatic medications unchanged, except option to decrease prednisone from 5 milligrams to 4 milligrams per day.We will consider left knee joint corticosteroid injection. 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 Related to Other ferry terminal supervisor (current) drug therapy After discussion of potential treatment options, risks and benefits, the patient and I are in agreement with pursuing local corticosteroid injection. Related to Shoulder joint pain The patient will hav e CBC, Cr, transaminases and albumin performed every 2-3 months. Related to Other ferry terminal supervisor (current) drug therapy Continue current ant i-rheumatic [...]
== END 2023-03-27 17:29 | disposition home or self-care (01) ==
PROVIDERS: PCP Family Medicine; Visit Provider Student in an Organized Health Care Education/Training Program
DX: M25.562 Pain in left knee (principal)
CPT/HCPCS: A0425; A0427

== ENCOUNTER 2023-03-27 18:07 | Emergency (ER) | payer BC, SELFPAY ==
--- OUTSIDE RECORDS SUMMARY | 2023-03-27 18:09 | XMS_ITS | Continuity of Care Document ---
Author Name Unknown Organization [facility] Address [address] [place] [address] Phone Care Team Providers Care Moss Gatherer Name Role Phone Sarah Rowan DO Unavailable Unavailab le Allergies, Adverse Reactions, Alerts Substance Reaction Status Criticality aspirin Active No Information Medications Medication Instructions Dosage Effective Dates (start - stop) Status Comments METHOTREXATE 2.5 MG TABLET TAKE 10 TABLETS (25MG) BY ORAL ROUTE ONCE WEEKLY - Active Plaquenil 200 mg tablet take 2 tablet by oral route every day 400 MG - Active FOLIC ACID TABS 1MG TAKE 1 TABLET DAILY - Active PREDNISONE 5 MG TABLET TAKE 1 & 1/2 TABLETS DAILY FOR 2 WEEKS, THEN 1 TABLET DAILY. - Active Enbrel SureClick 50 mg/mL (1 mL) subcutaneous pen injector INJECT 50 MG (1 ML) UNDER THE SKIN EVERY WEEK - Active venlafaxine 75 mg tablet take 3 tablets twice daily - Active lisinopril 5 mg tablet take 1 tablet by oral route every day 5 MG - Active METHOTREXATE 2.5 MG TABLET TAKE 10 (25MG) BY ORAL ROUTE EVERY WEEK ALL TABS ONCE PER WEEK - No Longer Active Procedures Procedure Date Office/Outpatient Visit, Est Office/Outpatient Visit, Est Routine Venipuncture Assay Of Serum Albumin Assay Of Creatinine Transferase (Ast) (Sgot) Alanine Amino (Alt) (Sgpt) Complete Cbc WAuto Diff Wbc Routine Venipuncture Assay Of Serum Albumin Assay Of Creatinine Transferase (Ast) (Sgot) Alanine Amino (Alt) (Sgpt) Complete Cbc WAuto Diff Wbc Office/Outpatient Visit, Est Routine Venipuncture Rbc Sed Rate, Nonautomated Assay Of Serum Albumin Assay Of Creatinine Transferase (Ast) (Sgot) Alanine Amino (Alt) (Sgpt) CReactive Protein Complete Cbc WAuto Diff Wbc Office/Outpatient Visit, Est Routine Venipuncture Specimen Handling Assay Of Serum Albumin Assay Of Creatinine Transferase (Ast) (Sgot) Alanine Amino (Alt) (Sgpt) Complete Cbc WAuto Diff Wbc Office/Outpatient Visit, Est Routine Venipuncture Rbc Sed Rate, Nonautomated Assay Of Serum Albumin Assay Of Creatinine Transferase (Ast) (Sgot) Alanine Amino (Alt) (Sgpt) CReactive Protein Tb Test, Cell Immun Measure Complete Cbc WAuto Diff Wbc Office/Outpatient Visit, Est Office/Outpatient Visit, Est Routine Venipuncture Assay Of Serum Albumin Assay Of Creatinine Transferase (Ast) (Sgot) Alanine Amino (Alt) (Sgpt) Complete Cbc WAuto Diff Wbc Office/Outpatient Visit, Est Office/Outpatient Visit, Est Routine Venipuncture Complete Cbc WAuto Diff Wbc Assay Of Serum Albumin Assay Of Creatinine Transferase (Ast) (Sgot) Alanine Amino (Alt) (Sgpt) No Charge Office Visit Office/Outpatient Visit, Est Drain/Inject, Joint/Bursa, Major 2014 Betamethasone Acet And Sod Phosp 2014 Office/Outpatient Visit, Est Surgical Trays Office/Outpatient Visit, Est Routine Venipuncture Complete Cbc WAuto Diff Wbc Assay Of Serum Albumin Assay Of Creatinine Transferase (Ast) (Sgot) Alanine Amino (Alt) (Sgpt) Drain/Inject, Joint/Bursa Betamethasone Acet And Sod Phosp 2013 Office/Outpatient Visit, Est Surgical Trays Routine Venipuncture Complete Cbc WAuto Diff Wbc Rbc Sed Rate, Nonautomated CReactive Protein Assay Of Serum Albumin Assay Of Creatinine Transferase (Ast) (Sgot) Alanine Amino (Alt) (Sgpt) Office/Outpatient Visit, Est Drain/Inject, Joint/Bursa Triamcinolone Hexacetonl Inj Surgical Trays Office/Outpatient Visit, Est Routine Venipuncture Specimen Handling Complete Cbc WAuto Diff Wbc Rbc Sed Rate, Nonautomated CReactive Protein Assay Of Serum Albumin Assay Of Creatinine Transferase (Ast) (Sgot) Alanine Amino (Alt) (Sgpt) Office/Outpatient Visit, Est Routine Venipuncture Specimen Handling Complete Cbc WAuto Diff Wbc Assay Of Creatinine Transferase (Ast) (Sgot) Alanine Amino (Alt) (Sgpt) Office/Outpatient Visit, Est Routine Venipuncture Specimen Handling Complete Cbc WAuto Diff Wbc Rbc Sed Rate, Nonautomated CReactive Protein Assay Of Serum Albumin Assay Of Creatinine Transferase Ast Sgot Alanine Amino (Alt) (Sgpt) Office/Outpatient Visit, Est Routine Venipuncture Specimen Handling Complete Cbc WAuto Diff Wbc Rbc Sed Rate, Nonautomated Assay Of Creatinine Assay Of Serum Albumin Transferase Ast Sgot Alanine Amino Alt Sgpt CReactive Protein Office/Outpatient Visit, Est Office/Outpatient Visit, Est Routine Venipuncture CReactive Protein Complete Cbc WAuto Diff Wbc Rbc Sed Rate, Nonautomated Assay Of Serum Albumin Assay Of Creatinine Transferase Ast Sgot Alanine Amino Alt Sgpt Office/Outpatient Visit, Est XRay Exam Of Hand 2v Specimen Handling Office/Outpatient Visit, New Routine Venipuncture Specimen Handling CReactive Protein Complete Cbc WAuto Diff Wbc Assay, Glucose, Blood Quant Rbc Sed Rate, Nonautomated Assay Of Serum Albumin Assay Of Creatinine Transferase Ast Sgot Alanine Amino Alt Sgpt Advance Directives Directive Yes / No Effective Date File Name No Information Encounters Encounter Description Practice Location Reason(s) For Visit Diagnoses Date Provider Providers Copied on Encounter [facility] , [address], [place], [address], [place] tel:[phone] [facility] , No Information 3 Skemp Pearl Sarah. [address], [place], [address], [place]. tel:[phone] [facility] , [address], [place], [address], [place] tel:[phone] [facility] , No Information 3 Skemp Pearl Sarah. [address], [place], [address], [place]. tel:[phone] [facility] , [address], [place], [address], [place] tel:[phone] [facility] , No Information 3 Skemp Pearl Sarah. [address], [place], [address], [place]. tel:[phone] Office/Outpa tient Visit, Est [facility] , [address], [place], [address], [place] tel:[phone] [facility] , Rheumatoid arthritis (chief complaint)Mo nitor Chronic High Risk Meds (chief complaint) RA w/ rheumatoid factor of multiple sites w/o organ involvementO ther chcf (current) drug therapyOther dorsalgia 3 María Denis. [facility] [address], [place], [address], [place]. tel:[phone] , [facility] [address], [place], [address].Refer ring Provider: Adeel Tang, [facility] [address], [place], [address]. tel:[phone] [facility] , [address], [place], [address], [place] tel:[phone] [facility] No Information 2 María Adeel. [facility] [address], [place], [address], [place]. tel:[phone] [facility] , [address], [place], [address], [place] tel:[phone] [facility] No Information 2 María Adeel. [facility] [address], [place], [address], [place]. tel:[phone] [facility] , [address], [place], [address], [place] tel:[phone] [facility] , No Information 2 María Adeel. [facility] [address], [place], [address], [place]. tel:[phone] Office/Outpa tient Visit, Est [facility] , [address], [place], [address], [place] tel:[phone] [facility] , Rheumatoid arthritis (chief complaint)Mo nitor Chronic High Risk Meds (chief complaint) RA w/ rheumatoid factor of multiple sites w/o organ involvementO ther buttermaker helper (current) drug therapy 2 María Adeel. [facility] [address], [place], [address], [place]. tel:[phone] , [facility] [address], [place], [address].Refer ring Provider: Adeel Tang, [facility] [address], [place], [address]. tel:[phone] [facility] , [address], [place], [address], [place] tel:[phone] [facility] , No Information 2 María Denis. [facility] [address], [place], [address], [place]. tel:[phone] Referring Provider: Adeel Tang, [facility] [address], [place], [address]. tel:[phone] Office/Outpa tient Visit, Est [facility] , [address], [place], [address], [place] tel:[phone] [facility] , Rheumatoid arthritis (chief complaint)Mo nitor Chronic High Risk Meds (chief complaint) RA w/ rheumatoid factor of multiple sites w/o organ involvementO ther chcf (current) drug therapy María Denis. [facility] [address], [place], [address], [place]. tel:[phone] , [facility] [address], [place], [address].Refer ring Provider: Adeel Tang, [facility] [address], [place], [address]. tel:[phone] Office/Outpa tient Visit, Est [facility] , [address], [place], [address], [place] tel:[phone] [facility] , Rheumatoid arthritis (chief complaint)Mo nitor Chronic High Risk Meds (chief complaint) AnxietyRA w/ rheumatoid factor of multiple sites w/o organ involvementO ther buttermaker helper (current) drug therapy 0 María Denis. [facility] [address], [place], [address], [place]. tel:[phone] , [facility] [address], [place], [address].Refer ring Provider: Adeel Tang, [facility] [address], [place], [address]. tel:[phone] Office/Outpa tient Visit, Est [facility] , [address], [place], [address], [place] tel:[phone] [facility] , Rheumatoid arthritis (chief complaint)Mo nitor Chronic High Risk Meds (chief complaint) AnxietyRA w/ rheumatoid factor of multiple sites w/o organ involvementO ther chcf (current) drug therapy 0 María Denis. [facility] [address], [place], [address], [place]. tel:[phone] , [facility] [address], [place], [address].Refer ring Provider: Adeel Tang, [facility] [address], [place], [address]. tel:[phone] Office/Outpa tient Visit, Est [facility] , [address], [place], [address], [place] tel:[phone] [facility] , Rheumatoid arthritis (chief complaint)Mo nitor Chronic High Risk Meds (chief complaint) AnxietyRA w/ rheumatoid factor of multiple sites w/o organ involvementO ther chcf (current) drug therapy 201 9 María Denis. [facility] [address], [place], [address], [place]. tel:[phone] , [address], [place], [address].Refer ring Provider: Adeel Tang, [facility] [address], [place], [address]. tel:[phone] Office/Outpa tient Visit, Est [facility] , [address], [place], [address], [place] tel:[phone] [facility] , Rheumatoid arthritis (chief complaint)Mo nitor Chronic High Risk Meds (chief complaint) AnxietyRA w/ rheumatoid factor of multiple sites w/o organ involvementO ther buttermaker helper (current) drug therapy Aug- 8 María Denis. [facility] [address], [place], [address], [place]. tel:[phone] , [address], [place], [address].Refer ring Provider: Adeel Tang, [facility] [address], [place], [address]. tel:[phone] Office/Outpa tient Visit, Est [facility] , [address], [place], [address], [place] tel:[phone] [facility] , Rheumatoid arthritis (chief complaint)Mo nitor Chronic High Risk Meds (chief complaint) RA w/ rheumatoid factor of multiple sites w/o organ involvementO ther chcf (current) drug therapyAnxie ty Nov-0 8 María Denis. [facility] [address], [place], [address], [place]. tel:[phone] Specialist: Tim Carrasquillo, [address], [place], [address]. tel:[phone]: Adeel Tang, [facility] [address], [place], [address]. tel:[phone] Office/Outpa tient Visit, Est [facility] , [address], [place], [address], [place] tel:[phone] [facility] , Rheumatoid arthritis (chief complaint)Mo nitor Chronic High Risk Meds (chief complaint) RA w/ rheumatoid factor of multiple sites w/o organ involvementO ther buttermaker helper (current) drug therapy María Denis. [facility] [address], [place], [address], [place]. tel:[phone] Specialist: Tim Carrasquillo, [address], [place], [address]. tel:[phone]: Adeel Tang, [facility] [address], [place], [address]. tel:[phone] [facility] , [address], [place], [address], [place] tel:[phone] [facility] , Rheumatoid arthritis (chief complaint)Mo nitor Chronic High Risk Meds (chief complaint) RA w/ rheumatoid factor of multiple sites w/o organ involvementO ther buttermaker helper (current) drug therapyPain in right shoulder María Denis. [facility] [address], [place], [address], [place]. tel:[phone] Specialist: Tim Carrasquillo, [address], [place], [address]. tel:[phone] ring Provider: Adeel Tang, [facility] [address], [place], [address]. tel:[phone] Office/Outpa tient Visit, Est [facility] , [address], [place], [address], [place] tel:[phone] [facility] , Rheumatoid arthritis (chief complaint)Mo nitor Chronic High Risk Meds (chief complaint) RA w/ rheumatoid factor of multiple sites w/o organ involvementO ther chcf (current) drug therapy 6 María Denis. [facility] [address], [place], [address], [place]. tel:[phone] Specialist: Tim Carrasquillo[address], [place], [address]. tel:[phone] Provider: Adeel Tang, [facility] [address], [place], [address]. tel:[phone] Office/Outpa tient Visit, Est [facility] , [address], [place], [address], [place] tel:[phone] [facility] , Rheumatoid arthritis (chief complaint)Mo nitor Chronic High Risk Meds (chief complaint) RA w/ rheumatoid factor of multiple sites w/o organ involvementO ther chcf (current) drug therapyShoul velasquez joint pain María Denis. [facility] [address], [place], [address], [place]. tel:[phone] Specialist: Tim Carrasquillo, [address], [place], [address]. tel:[phone]: Adeel Tang, [facility] [address], [place], [address]. tel:[phone] Office/Outpa tient Visit, Est [facility] , [address], [place], [address], [place] tel:[phone] [facility] , Rheumatoid arthritis (chief complaint)Mo nitor Chronic High Risk Meds (chief complaint) Rheumatoid arthritisThe rapeutic Drug MonitoringFi nger joint contracture Feb- María Denis. [facility] [address], [place], [address], [place]. tel:[phone] Specialist: Tim Carrasquillo, [facility] [address] [place] [address] [address], [place], [address]. tel:[phone] ring Provider: Adeel Tang, [facility] [address], [place], [address]. tel:[phone] Office/Outpa tient Visit, Est [facility] , [address], [place], [address], [place] tel:[phone] [facility] , Rheumatoid Arthritis (chief complaint) Rheumatoid ArthritisThe rapeutic Drug MonitoringPa in in joint involving lower leg María Denis. [facility] [address], [place], [address], [place]. tel:[phone] Specialist: Tim Carrasquillo, [address], [place], [address]. tel:[phone] ring Provider: Adeel Tang, [facility] [address], [place], [address]. tel:[phone] Office/Outpa tient Visit, Est [facility] , [address], [place], [address], [place] tel:[phone] [facility] , Rheumatoid Arthritis (chief complaint) Rheumatoid ArthritisThe rapeutic Drug MonitoringPa in in joint involving lower legPain in joint involving shoulder regionUnspec ified disorder of skin and subcutaneous tissue 4 María Denis. [facility] [address], [place], [address], [place]. tel:[phone] Specialist: Tim Carrasquillo, [facility] [address] [place] [address] [address], [place], [address]. tel:[phone] ring Provider: Adeel Tang, [facility] [address], [place], [address]. tel:[phone] Office/Outpa tient Visit, Est [facility] , [address], [place], [address], [place] tel:[phone] [facility] , Rheumatoid Arthritis (chief complaint) Rheumatoid ArthritisThe rapeutic Drug MonitoringPa in in joint involving shoulder region 4 María Denis. [facility] [address], [place], [address], [place]. tel:[phone] Specialist: Tmi Carrasquillo, [facility] [address] [place] [address] [address], [place], [address]. tel:[phone] ring Provider: Adeel Tang, [facility] [address], [place], [address]. tel:[phone] Office/Outpa tient Visit, Est [facility] , [address], [place], [address], [place] tel:[phone] [facility] , Rheumatoid Arthritis (chief complaint) Rheumatoid ArthritisThe rapeutic Drug MonitoringLO NG-TERM (CURRENT) USE OF STEROIDS 3 María Denis. [facility] [address], [place], [address], [place]. tel:[phone] Specialist: Tim Carrasquillo, [facility] [address] [place] [address] [address], [place], [address]. tel:[phone] Provider: Adeel Tang, [facility] [address], [place], [address]. tel:[phone] Office/Outpa tient Visit, Est [facility] , [address], [place], [address], [place] tel:[phone] [facility] , Rheumatoid Arthritis (chief complaint) Rheumatoid ArthritisThe rapeutic Drug MonitoringLO NG-TERM (CURRENT) USE OF STEROIDSCoug h 3 María Denis. [facility] [address], [place], [address], [place]. tel:[phone] Specialist: Tim Carrasquillo, [facility] [address] [place] [address] [address], [place], [address]. tel:[phone] [facility] Provider: Adeel Tang, [facility] [address], [place], [address]. tel:[phone] Office/Outpa tient Visit, Est [facility] , [address], [place], [address], [place] tel:[phone] [facility] , Rheumatoid Arthritis (chief complaint) Rheumatoid ArthritisThe rapeutic Drug MonitoringLO NG-TERM (CURRENT) USE OF STEROIDS May- 3 María Denis. [facility] [address], [place], [address], [place]. tel:[phone] Specialist: Tim Carrasquillo, [facility] [address], [place], [address]. tel:[phone] ring Provider: Adeel Tang, [facility] [address], [place], [address]. tel:[phone] Office/Outpa tient Visit, Est [facility] , [address], [place], [address], [place] tel:[phone] [facility] , Rheumatoid Arthritis (chief complaint) Rheumatoid ArthritisThe rapeutic Drug MonitoringUl cer of ankle 3 María Denis. [facility] [address], [place], [address], [place]. tel:[phone] Specialist: Tim Carrasquillo, [facility] [address], [place], [address]. tel:[phone] [facility] Provider: Adeel Tang, [facility] [address], [place], [address]. tel:[phone] Office/Outpa tient Visit, Est [facility] , [address], [place], [address], [place] tel:[phone] [facility] , Rheumatoid Arthritis (chief complaint) Rheumatoid ArthritisThe rapeutic Drug MonitoringLO NG-TERM (CURRENT) USE OF STEROIDS 2 María Denis. [facility] [address], [place], [address], [place]. tel:[phone] Specialist: Tim Carrasquillo [facility] [address], [place], [address]. tel:[phone] ring Provider: Adeel Tang, [facility] [address], [place], [address]. tel:[phone] Office/Outpa tient Visit, Est [facility] , [address], [place], [address], [place] tel:[phone] [facility] , Rheumatoid Arthritis (chief complaint) Rheumatoid ArthritisLON G-TERM (CURRENT) USE OF STEROIDS 2 María Adeel. [facility] [address], [place], [address], [place]. tel:[phone] Specialist: Tim Carrasquillo, [facility] [address] [place] [address] [address], [place], [address]. tel:[phone] ring Provider: Adeel Tang, [facility] [address], [place], [address]. tel:[phone] Office/Outpa tient Visit, [facility] , [address], [place], [address], [place] tel:[phone] [facility] , Pulmonary infiltrates (chief complaint) Unspecified inflammatory polyarthropa thyLONG-TERM (CURRENT) USE OF STEROIDS 2 María Adeel. [facility] [address], [place], [address], [place]. tel:[phone] Specialist: Tim Carrasquillo, [address], [place], [address]. tel:[phone] ring Provider: Adeel Tang, [facility] [address], [place], [address]. tel:[phone] Family History Family Member Type Diagnosis Age At Onset Sister Problem (finding) malignant neoplasm of o vary Father Problem (finding) cancer of colon Immunizations Vaccine Date Status Comments COVID-19 [employer] administered S ource: Other Provider Payers Payer name Insurance type Covered libertarian ID Celine rogers(s) [facility] [id number] Social History Type Description Quantity Date Captured Comments Sex Female Smoking Status No Information Chief Complaint And Reason For Visit No Information Reason For Referral Reason For Referral No Information Plan Of Treatment Date Type Action Status Referral Ordered: XRay Exam Of Hand 2v Bilateral PA & oblique ordered Appointment Mora Galeas BOOKED History Of Present Illness Encounter Date Complaint History Of Prese nt Illness Rheumatoid arthritis Monitor Chronic High Risk Meds Rheumatoid arthritis Monitor Chronic High Risk Meds Rheumatoid arthritis Monitor Chronic High Risk Meds Rheumatoid arthritis Monitor Chronic High Risk Meds Rheumatoid arthritis Monitor Chronic High Risk Meds Rheumatoid arthritis Monitor Chronic High Risk Meds Rheumatoid arthritis Monitor Chronic High Risk Meds Rheumatoid arthritis Monitor Chronic High Risk Meds Rheumatoid arthritis Monitor Chronic High Risk Meds Rheumatoid arthritis Monitor Chronic High Risk Meds Rheumatoid arthritis Monitor Chronic High Risk Meds Rheumatoid arthritis Monitor Chronic High Risk Meds Rheumatoid arthritis Monitor Chronic High Risk Meds Functional Status Date Functional Assessmen t No Information Instructions Date Instruction Additional Infor tom Pursue evaluation an d treatment through orthopedic urgent care. Related to Other dorsalgia The patient will hav e CBC, Cr, transaminases and albumin performed every 3 months.Pursue annual safety monitoring ophthalmologic evaluation. Related to Other buttermaker helper (current) drug therapy Continue hydroxychlo roquine 400 mg/day, methotrexate 25 mg weekly and Enbrel 50 mg weekly, although she does benefit from occasional increase to twice weekly dosing of the latter.Continue low-dose prednisone, skipping doses when able.I will consider PFT and potential update of chest imaging if pulmonary symptoms recur. Related to RA w/ rheumatoid factor of multiple sites w/o organ involvement Continue hydroxychlo roquine 400 mg/day, methotrexate 25 milligrams weekly and Enbrel 50 mg weekly, although she does benefit from occasional increase to twice weekly dosing.Continue low-dose prednisone, including skipping days when able.I will consider PFT and potential update of chest imaging if pulmonary symptoms recur. Related to RA w/ rheumatoid factor of multiple sites w/o organ involvement The patient will hav e CBC, Cr, transaminases and albumin performed every 3 months.Pursue annual safety monitoring ophthalmologic evaluation. Related to Other buttermaker helper (current) drug therapy The patient will hav e CBC, Cr, transaminases and albumin performed every 3 months.Pursue annual safety monitoring ophthalmologic evaluation. Related to Other buttermaker helper (current) drug therapy Continue hydroxychlo roquine 400 mg/day and methotrexate 25 milligrams weekly.The patient will hold her Enbrel now in light of the upcoming TKA in 1 month, after which we anticipate return to 50 mg weekly, although we will attempt to provide the patient samples intermittently so that she can shorten the dosing interval (increase the dose) mildly at least at times.Remain off of prednisone for now.Pursue the anticipated left knee TKA in April.I will consider PFT and potential update of chest imaging if pulmonary symptoms recur. 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 Related to Anxiety The patient will hav e CBC, Cr, transaminases and albumin performed every 3 months.Pursue annual safety monitoring ophthalmologic evaluation. Related to Other buttermaker helper (current) drug therapy Continue hydroxychlo roquine 400 mg/day and methotrexate 25 milligrams weekly.Continue Enbrel 50 mg weekly, although we will attempt to provide the patient samples intermittently so that she can shorten the dosing interval (increase the dose) mildly at least at times.Continue prednisone 5 mg/day, with option for intermittent, short-term increase to 10 mg qd as needed.I will consider PFT and potential update of chest imaging. 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 Related to Other chcf (current) drug therapy After discussion of potential treatment options, risks and benefits, the patient and I are in agreement with adding hydroxychloroquine 400 milligrams per day, while continuing on Enbrel 50 milligrams weekly and methotrexate 25 milligrams weekly.Pursue gradual prednisone tapering from the current 10 mg qd to 10 mg alternating with 7.5 mg/day x 10 days, then 7.5 milligrams daily x 10 days. The patient will continue tapering in this fashion toward the lowest efficacious dose. She is aware that it will require 2-3 months for the hydroxychloroquine to become efficacious so she may need to delay this tapering somewhat.I will consider PFT and potential update of chest imaging. 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 Related to Anxiety Continue current ant i-rheumatic medications unchanged.I will consider PFT and potential update of chest imaging. 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 Related to Anxiety I again urged patien t to update evaluation with her primary care provider or a psychologist/psychiatrist. Related to Anxiety The patient will hav e CBC, Cr, transaminases and albumin performed every 3 months. 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 The patient expresses understanding and will pursue.I will consider PFT and potential update of chest imaging. 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 Related to Anxiety The patient will hav e CBC, Cr, transaminases and albumin performed every 3 months. 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 Related to RA w/ rheumatoid factor of multiple sites w/o organ involvement I encouraged the pat elizabeth to pursue therapy to the shoulder, which she prefers to do initially through her chiropractor, perhaps with deep tissue massage. Related to Pain in right shoulder The patient will hav e CBC, Cr, transaminases and albumin performed every 3 months. 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 Related to RA w/ rheumatoid factor of multiple sites w/o organ involvement After discussion of potential treatment options, risks and benefits, the patient and I are in agreement with pursuing local corticosteroid injection. Related to Shoulder joint pain The patient will hav e CBC, Cr, transaminases and albumin performed every 2-3 months. 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 Related to Therapeutic Drug Monitoring Continue current ant i-rheumatic medications unchanged, except pursue gradual prednisone tapering by 1 milligram every 10-14 days, toward the lowest efficacious dosage. Related to Rheumatoid arthritis Assessments Type Assessment Date No Information Patient Care Teams Name Effective Dates (start - stop) Status Members No Information
[2023-03-27 18:11] VITALS: BP 136/68; PULSE 131; RESP 18; TEMP 36.1; O2SAT 100
--- NOTE | 2023-03-27 18:18 | CRLHL7_ITS ---
For Patients: As a result of the Cures Act, medical imaging exams and procedure reports are released immediately into your electronic medical record. You may view this report before your referring provider. If you have questions, please contact your health care provider. INDICATION: Hip pain. Replacement 2 days ago. TECHNIQUE: AP view the pelvis and 2 views of the left hip. COMPARISON: None. FINDINGS: The cross-table lateral view is limited due to soft tissues overlying the arthroplasty. The hip is held in external rotation. A left hip arthroplasty is in place. No evidence of periprosthetic fracture or dislocation. There is gas in the soft tissues of the proximal left thigh consistent with the history of recent surgery. Otherwise the soft tissues are unremarkable. IMPRESSION : Left hip arthroplasty. The hip is held in external rotation. No evidence of periprosthetic fracture or dislocation. Dictated by Zeina Vo MD @ 03/27/2023 7:25:11 PM (Electronically Signed)
[2023-03-27] MEDS: HYDROmorphone 0.5 mg/0.5 ml inj IVP (18:23)
[2023-03-27 18:29] VITALS: PULSE 104; O2SAT 99
--- NOTE | 2023-03-27 18:31 | ED.GENADULT ---
HPI - General Adult General Date Seen: 03/27/23 Chief complaint: Extremity Pain/Injury, Lower Stated complaint: knee pain Time Seen by Provider: 03/27/23 18:08 Source: patient Mode of arrival: EMS Limitations: no limitations History of Present Illness HPI narrative: Patient is a 62-year-old female with a history of essential hypertension presented emergency department for left hip and knee pain. She had a knee replaced in 2020 and had a hip replaced 2 days ago. She was discharged home from the hospital yesterday feeling well after the surgery. She she states she was walking up steps when she developed severe pain to her left hip and some moderate pain to left knee. She tried to walk back to her bed was states is too painful and had to sit down. She called EMS. They brought her to the emergency department. She states she took 2 oxycodone before EMS arrived and EMS gave her 100 mg of fentanyl. She denies numbness, chest pain, abdominal pain, diarrhea, constipation, fevers, chills. Related Data Home Medications Medication Instructions Recorded Confirmed folic acid 1 mg tablet 1 mg PO DAILY 11/14/22 11/17/22 hydroxychloroquine 200 mg tablet 400 mg PO DAILY 11/14/22 11/17/22 levetiracetam 500 mg tablet 500 mg PO BID 11/14/22 11/17/22 lisinopril 10 1 tab PO DAILY 11/14/22 11/17/22 mg-hydrochlorothiazide 12.5 mg tablet venlafaxine 75 mg tablet 225 mg PO Q12H 11/14/22 11/17/22 etanercept 50 mg/mL (1 mL) 50 mg subcut Q7D 11/15/22 11/17/22 subcutaneous pen injector (Enbrel SureClick) methotrexate sodium 2.5 mg tablet 25 mg PO Q7D 11/15/22 11/17/22 prednisone 5 mg tablet 5 mg PO DAILY PRN 11/15/22 11/17/22 Previous Rx's Medication Instructions Recorded amoxicillin 875 mg-potassium 1 tab PO Q12H #10 tabs 11/15/22 clavulanate 125 mg tablet Allergies Allergy/AdvReac Type Severity Reaction Status Date / Time aspirin Allergy Anaphylaxis Verified 11/17/22 13:36 Review of Systems Status of ROS: Reports: 6 or more systems reviewed and unremarkable except as noted in History and below PFSH PFS Medical History (Updated 03/27/23 @ 21:24 by To Cary DO) Seizure ?R56.9 - Unspecified convulsions (ICD-10) Thyroid nodule ?E04.1 - Nontoxic single thyroid nodule (ICD-10) Anxiety ?F41.9 - Anxiety disorder, unspecified (ICD-10) Essential hypertension ?I10 - Essential (primary) hypertension (ICD-10) Rheumatoid arthritis ?M06.9 - Rheumatoid arthritis, unspecified (ICD-10) Abscess, intratonsillar ?J36 - Peritonsillar abscess (ICD-10) Surgical History (Updated 11/14/22 @ 17:15 by Irina Ordaz MD) History of total knee arthroplasty ?Z96.659 - Presence of unspecified artificial knee joint (ICD-10) S/P ORIF (open reduction internal fixation) fracture ?Z98.890 - Other specified postprocedural states (ICD-10) ?Z87.81 - Personal history of (healed) traumatic fracture (ICD-10) History of section ?Z98.891 - History of uterine scar from previous surgery (ICD-10) H/O tubal ligation ?Z98.51 - Tubal ligation status (ICD-10) History of carpal tunnel release ?Z98.890 - Other specified postprocedural states (ICD-10) Social History (Updated 11/14/22 @ 17:10 by Irina Ordaz MD) Narrative: Lives with locally, 3 adult children. 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 Nonsmoker, beer 3-4 nights a week. No history of ETOH withdrawal. Highest level of school completed/degree received: Bachelor's degree Smoking Status: Never smoker How often do you have a drink containing alcohol: 4 or more times a week Alcohol type: beer How many standard drinks containing alcohol do you have on a typical day: 1 or 2 How often do you have six or more drinks on one occasion: Daily or almost daily AUDIT-C Alcohol total score: 8 Non-prescribed substance use: denies use Caffeine: No service: No Exam Narrative: Exam Narrative: Const: Well-nourished, Well-developed, in severe distress Eyes: PERRL, no conjunctival injection, and symmetrical lids ENMT: Atraumatic external nose and ears. Moist mucous membranes. Neck: Symmetric, trachea midline, No thyromegaly. CVS: Tachycardic, No murmurs or gallops. Peripheral pulses 2+ and equal in all extremities RESP: Unlabored respiratory effort. Clear to auscultation bilaterally. GI: Nontender/Nondistended, No rebound or guarding. MSK:Extremities w/o deformity, decreased range of motion left hip status post surgery and secondary to pain. Minimal tenderness to palpation of left hip and no tenderness to palpation to left knee Skin: Warm, Dry. No rashes or lesions. Well-healing surgical wound. No signs of overlying infection Neuro: Normal Muscle tone, No focal neurological deficits. Psych: Awake, Alert, & Oriented x3. Appropriate mood and affect. Const: Vital Signs, click to edit/add: Vital Signs - 24 hr 03/27/23 18:11 03/27/23 18:29 03/27/23 19:20 Temperature 97.0 F L Pulse Rate 104 H Pulse Rate [Right Pulse Oximeter] 131 H 92 Respiratory Rate 18 10 L Blood Pressure [Ri ght Upper Arm] 136/68 134/76 Pulse Oximetry 100 99 88 Oxygen Delivery Me thod Room Air Room Air 03/27/23 19:40 03/27/23 20:35 Temperature Pulse Rate Pulse Rate [Right Pulse Oximeter] 88 88 Respiratory Rate 16 18 Blood Pressure [Ri ght Upper Arm] Pulse Oximetry 100 96 Oxygen Delivery Me thod Nasal Cannula Room Air Course Vital Signs Vital signs: Initial Vital Signs Temperature 97.0 F L 03/27/23 18:11 Temperature Source Temporal Artery Scan 03/27/23 18:11 Pulse Rate 131 H 03/27/23 18:11 Respiratory Rate 18 03/27/23 18:11 Blood Pressure 136/68 03/27/23 18:11 Blood Pressure Mean 90 03/27/23 18:11 Blood Pressure Position Sitting 03/27/23 18:11 Pulse Oximetry 100 03/27/23 18:11 Oxygen Delivery Method Room Air 03/27/23 18:11 Vital Signs Temperature 97.0 F L 03/27/23 18:11 Pulse Rate 131 H 03/27/23 18:11 Respiratory Rate 18 03/27/23 18:11 Blood Pressure 136/68 03/27/23 18:11 Pulse Oximetry 100 03/27/23 18:11 Oxygen Delivery Method Room Air 03/27/23 18:11 Temperature 97.0 F L 03/27/23 18:11 Pulse Rate 88 03/27/23 20:35 Respiratory Rate 18 03/27/23 20:35 Blood Pressure 134/76 03/27/23 19:20 Pulse Oximetry 96 03/27/23 20:35 Oxygen Delivery Method Room Air 03/27/23 20:35 Medical Decision Making MDM Narrative Medical decision making narrative: Patient is a 62-year-old female presenting for left hip pain. She had a recent surgery 2 days prior for a hip replacement. She is discharged home. She states she is going to go to rehab starting this upcoming Tuesday. She states she was going up steps when she developed severe pain and her left hip and mild pain and left knee. She came to emergency department via EMS could she could not finish walking to her bed. She took 2 oxycodone before she arrived for total of 10 mg per her prescription seen on her discharge documentation from the hospital hip surgery and was given 100 mg of fentanyl by EMS. When patient arrived he still appeared to be in severe pain. There was some concern for dislocation possibly with a new hip but did feel in place on palpation has minimal pain. X-rays of left hip were ordered. There difficult to get due to her pain. She refused any x-rays because she says she was in too much pain in her hip and her knee no longer hurts. X-rays return of the hip showing no acute abnormalities. No signs of dislocation in the prostate this appears to be in the correct place no signs of fracture. She was initially given 0.5 mg of Dilaudid and later given 2 mg of morphine. While I do have some concern right now for drug-seeking behavior she does appear to be in large amount of pain. She is also being monitored so she does receive 2 months the medication we can quickly reverse the opioids. She says the pain was getting better when we tried to walker she states she is down too much pain and was afraid she will bring the brain back if she walks. She is given Flexeril and Toradol. After this she was able to walk after much myself and the nurse spoke to her for while. Patient then was able to walk out of the room and down the dixon and back. After speaking to her and they feel comfortable going home. She does not have any pain medications at this time other than Tylenol. I will give her a small prescription for opioids by informed she needs to go large prescription from our surgeon. Also give her muscle relaxer and a dose of Tylenol before she discharges. She is agreeable to this plan. Discharge Plan Discharge Clinical Impression: Post-op pain Patient Disposition: Home w/ Parent or Adult Condition: Improved Instructions: Opioid Safety (ED) Additional Instructions: Follow-up with your orthopedic surgeon both the larger prescription of oxycodone if needed. Take the oxycodone and Flexeril as directed. When you take them together you have potential for gain lightheaded and dizzy so be careful and always have somebody helping you. Return for new or worsening symptoms Prescriptions: No Action folic acid 1 mg tablet 1 mg PO DAILY levetiracetam 500 mg tablet 500 mg PO BID hydroxychloroquine 200 mg tablet 400 mg PO DAILY venlafaxine 75 mg tablet 225 mg PO Q12H lisinopril-hydrochlorothiazide 10-12.5 mg tablet 1 tab PO DAILY Enbrel SureClick 50 mg/mL (1 mL) pen injector 50 mg subcut Q7D Rx Instructions: WEEKLY methotrexate sodium 2.5 mg tablet 25 mg PO Q7D Rx Instructions: WEEKLY prednisone 5 mg tablet 5 mg PO DAILY PRN Rx Instructions: PRN RA FLARES amoxicillin-pot clavulanate 875-125 mg tablet 1 tab PO Q12H Qty: 10 0RF Follow Up/Referrals: Case Gao MD [Primary Care Provider] - Stand Alone Forms: [employer] Info Instructions
--- OUTSIDE RECORDS SUMMARY | 2023-03-27 18:59 | XMS_ITS | Continuity of Care Document ---
Author Name Unknown Organization [facility] Address [address] [place] [address] Phone Care Team Providers Care Technical Illustrator Name Role Phone Sarah Rowan DO Unavailable [...] [facility] , [address], [place], [address], [place] tel:[phone] [facility] , No Information 3 Skemp Pearl Sarah. [address], [place], [address], [place]. tel:[phone] [facility] , [address], [place], [address], [place] tel:[phone] [facility] , No Information 3 Skemp Pearl Sarah. [address], [place], [address], [place]. tel:[phone] [facility] , [address], [place], [address], [place] tel:[phone] [facility] , No Information 3 Skemp Pearl Sarah. [address], [place], [address], [place]. tel:[phone] Office/Outpa tient Visit, Est [facility] , [address], [place], [address], [place] tel:[phone] [facility] , Rheumatoid arthritis (chief complaint)Mo nitor Chronic High Risk Meds (chief complaint) RA w/ rheumatoid factor of multiple sites w/o organ involvementO ther nursing home (current) drug therapyOther dorsalgia 3 María Denis. [facility] [address], [place], [address], [place]. tel:[phone] , [facility] [address], [place], [address].Refer ring Provider: Adeel Tang, [facility] [address], [place], [address]. tel:[phone] [facility] , [address], [place], [address], [place] tel:[phone] [facility] No Information 2 María Adeel. [facility] [address], [place], [address], [place]. tel:[phone] [facility] , [address], [place], [address], [place] tel:[phone] [facility] No Information 2 María Adeel. [facility] [address], [place], [address], [place]. tel:[phone] [facility] , [address], [place], [address], [place] tel:[phone] [facility] , No Information 2 María Adeel. [facility] [address], [place], [address], [place]. 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 [facility] [address], [place], [address], [place]. tel:[phone] , [facility] [address], [place], [address].Refer ring Provider: Adeel Tang, [facility] [address], [place], [address]. tel:[phone] [facility] , [address], [place], [address], [place] tel:[phone] [facility] , No Information 2 María Denis. [facility] [address], [place], [address], [place]. tel:[phone] Referring Provider: Adeel Tang, [facility] [address], [place], [address]. tel:[phone] Office/Outpa tient Visit, Est [facility] , [address], [place], [address], [place] tel:[phone] [facility] , Rheumatoid arthritis (chief complaint)Mo nitor Chronic High Risk Meds (chief complaint) RA w/ rheumatoid factor of multiple sites w/o organ involvementO ther nursing home (current) drug therapy María Denis. [facility] [address], [place], [address], [place]. tel:[phone] , [facility] [address], [place], [address].Refer ring Provider: Adeel Tang, [facility] [address], [place], [address]. tel:[phone] Office/Outpa tient Visit, Est [facility] , [address], [place], [address], [place] tel:[phone] [facility] , Rheumatoid arthritis (chief complaint)Mo nitor Chronic High Risk Meds (chief complaint) AnxietyRA w/ rheumatoid factor of multiple sites w/o organ involvementO ther coin machine assembler (current) drug therapy 0 María Denis. [facility] [address], [place], [address], [place]. tel:[phone] , [facility] [address], [place], [address].Refer ring Provider: Adeel Tang, [facility] [address], [place], [address]. tel:[phone] Office/Outpa tient Visit, Est [facility] , [address], [place], [address], [place] tel:[phone] [facility] , Rheumatoid arthritis (chief complaint)Mo nitor Chronic High Risk Meds (chief complaint) AnxietyRA w/ rheumatoid factor of multiple sites w/o organ involvementO ther nursing home (current) drug therapy 0 María Denis. [facility] [address], [place], [address], [place]. tel:[phone] , [facility] [address], [place], [address].Refer ring Provider: Adeel Tang, [facility] [address], [place], [address]. tel:[phone] Office/Outpa tient Visit, Est [facility] , [address], [place], [address], [place] tel:[phone] [facility] , Rheumatoid arthritis (chief complaint)Mo nitor Chronic High Risk Meds (chief complaint) AnxietyRA w/ rheumatoid factor of multiple sites w/o organ involvementO ther nursing home (current) drug therapy 201 9 María Denis. [facility] [address], [place], [address], [place]. tel:[phone] , [address], [place], [address].Refer ring Provider: Adeel Tang, [facility] [address], [place], [address]. tel:[phone] Office/Outpa tient Visit, Est [facility] , [address], [place], [address], [place] tel:[phone] [facility] , Rheumatoid arthritis (chief complaint)Mo nitor Chronic High Risk Meds (chief complaint) AnxietyRA w/ rheumatoid factor of multiple sites w/o organ involvementO ther coin machine assembler (current) drug therapy Aug- 8 María Denis. [facility] [address], [place], [address], [place]. tel:[phone] , [address], [place], [address].Refer ring Provider: Adeel Tang, [facility] [address], [place], [address]. tel:[phone] Office/Outpa tient Visit, Est [facility] , [address], [place], [address], [place] tel:[phone] [facility] , Rheumatoid arthritis (chief complaint)Mo nitor Chronic High Risk Meds (chief complaint) RA w/ rheumatoid factor of multiple sites w/o organ involvementO ther nursing home (current) drug therapyAnxie ty Nov-0 8 María Denis. [facility] [address], [place], [address], [place]. tel:[phone] Specialist: Tim Carrasquillo, [address], [place], [address]. tel:[phone] Provider: Adeel Tang, [facility] [address], [place], [address]. tel:[phone] Office/Outpa tient Visit, Est [facility] , [address], [place], [address], [place] tel:[phone] [facility] , Rheumatoid arthritis (chief complaint)Mo nitor Chronic High Risk Meds (chief complaint) RA w/ rheumatoid factor of multiple sites w/o organ involvementO ther coin machine assembler (current) drug therapy María Denis. [facility] [address], [place], [address], [place]. tel:[phone] Specialist: Tim Carrasquillo, [address], [place], [address]. tel:[phone] Provider: Adeel Tang, [facility] [address], [place], [address]. tel:[phone] [facility] , [address], [place], [address], [place] tel:[phone] [facility] , Rheumatoid arthritis (chief complaint)Mo nitor Chronic High Risk Meds (chief complaint) RA w/ rheumatoid factor of multiple sites w/o organ involvementO ther coin machine assembler (current) drug therapyPain in right shoulder María Denis. [facility] [address], [place], [address], [place]. tel:[phone] Specialist: Tim Carrasquillo, [address], [place], [address]. tel:[phone] ring Provider: Adeel Tang, [facility] [address], [place], [address]. tel:[phone] Office/Outpa tient Visit, Est [facility] , [address], [place], [address], [place] tel:[phone] [facility] , Rheumatoid arthritis (chief complaint)Mo nitor Chronic High Risk Meds (chief complaint) RA w/ rheumatoid factor of multiple sites w/o organ involvementO ther nursing home (current) drug therapy 6 María Denis. [facility] [address], [place], [address], [place]. tel:[phone] Specialist: Tim Carrasquillo[address], [place], [address]. tel:[phone] Provider: Adeel Tang, [facility] [address], [place], [address]. tel:[phone] Office/Outpa tient Visit, Est [facility] , [address], [place], [address], [place] tel:[phone] [facility] , Rheumatoid arthritis (chief complaint)Mo nitor Chronic High Risk Meds (chief complaint) RA w/ rheumatoid factor of multiple sites w/o organ involvementO ther nursing home (current) drug therapyShoul velasquez joint pain María Denis. [facility] [address], [place], [address], [place]. tel:[phone] Specialist: Tim Carrasquillo, [address], [place], [address]. tel:[phone] Provider: Adeel Tang, [facility] [address], [place], [address]. tel:[phone] Office/Outpa tient Visit, Est [facility] , [address], [place], [address], [place] tel:[phone] [facility] , Rheumatoid arthritis (chief complaint)Mo nitor Chronic High Risk Meds (chief complaint) Rheumatoid arthritisThe rapeutic Drug MonitoringFi nger joint contracture Feb- María Denis. [facility] [address], [place], [address], [place]. tel:[phone] Specialist: Tim Carrasquillo, [facility] [address] [place] [address] [address], [place], [address]. tel:[phone] ring Provider: Adeel Tang, [facility] [address], [place], [address]. tel:[phone] Office/Outpa tient Visit, Est [facility] , [address], [place], [address], [place] tel:[phone] [facility] , Rheumatoid Arthritis (chief complaint) Rheumatoid ArthritisThe rapeutic Drug MonitoringPa in in joint involving lower leg María Denis. [facility] [address], [place], [address], [place]. tel:[phone] Specialist: Tim Carrasquillo, [address], [place], [address]. tel:[phone] ring Provider: Adeel Tang, [facility] [address], [place], [address]. tel:[phone] Office/Outpa tient Visit, Est [facility] , [address], [place], [address], [place] tel:[phone] [facility] , Rheumatoid Arthritis (chief complaint) Rheumatoid ArthritisThe rapeutic Drug MonitoringPa in in joint involving lower legPain in joint involving shoulder regionUnspec ified disorder of skin and subcutaneous tissue 4 María Denis. [facility] [address], [place], [address], [place]. tel:[phone] Specialist: Tim Carrasquillo, [facility] [address] [place] [address] [address], [place], [address]. tel:[phone] ring Provider: Adeel Tang, [facility] [address], [place], [address]. tel:[phone] Office/Outpa tient Visit, Est [facility] , [address], [place], [address], [place] tel:[phone] [facility] , Rheumatoid Arthritis (chief complaint) Rheumatoid ArthritisThe rapeutic Drug MonitoringPa in in joint involving shoulder region 4 María Denis. [facility] [address], [place], [address], [place]. tel:[phone] Specialist: Tim Carrasquillo, [facility] [address] [place] [address] [address], [place], [address]. tel:[phone] ring Provider: Adeel Tang, [facility] [address], [place], [address]. tel:[phone] Office/Outpa tient Visit, Est [facility] , [address], [place], [address], [place] tel:[phone] [facility] , Rheumatoid Arthritis (chief complaint) Rheumatoid ArthritisThe rapeutic Drug MonitoringLO NG-TERM (CURRENT) USE OF STEROIDS 3 María Denis. [facility] [address], [place], [address], [place]. tel:[phone] Specialist: Tim Carrasquillo, [facility] [address] [place] [address] [address], [place], [address]. tel:[phone] [facility] Provider: Adeel Tang, [facility] [address], [place], [address]. tel:[phone] Office/Outpa tient Visit, Est [facility] , [address], [place], [address], [place] tel:[phone] [facility] , Rheumatoid Arthritis (chief complaint) Rheumatoid ArthritisThe rapeutic Drug MonitoringLO NG-TERM (CURRENT) USE OF STEROIDSCoug h 3 María Denis. [facility] [address], [place], [address], [place]. tel:[phone] Specialist: Tim Carrasquillo, [facility] [address] [place] [address] [address], [place], [address]. tel:[phone] [facility] Provider: Adeel Tang, [facility] [address], [place], [address]. tel:[phone] Office/Outpa tient Visit, Est [facility] , [address], [place], [address], [place] tel:[phone] [facility] , Rheumatoid Arthritis (chief complaint) Rheumatoid ArthritisThe rapeutic Drug MonitoringLO NG-TERM (CURRENT) USE OF STEROIDS May- 3 María Denis. [facility] [address], [place], [address], [place]. tel:[phone] Specialist: Tim Carrasquillo, [facility] [address], [place], [address]. tel:[phone] ring Provider: Adeel Tang, [facility] [address], [place], [address]. tel:[phone] Office/Outpa tient Visit, Est [facility] , [address], [place], [address], [place] tel:[phone] [facility] , Rheumatoid Arthritis (chief complaint) Rheumatoid ArthritisThe rapeutic Drug MonitoringUl cer of ankle 3 María Denis. [facility] [address], [place], [address], [place]. tel:[phone] Specialist: Tim Carrasquillo, [facility] [address], [place], [address]. tel:[phone] [facility] Provider: Adeel Tang, [facility] [address], [place], [address]. tel:[phone] Office/Outpa tient Visit, Est [facility] , [address], [place], [address], [place] tel:[phone] [facility] , Rheumatoid Arthritis (chief complaint) Rheumatoid ArthritisThe rapeutic Drug MonitoringLO NG-TERM (CURRENT) USE OF STEROIDS 2 María Denis. [facility] [address], [place], [address], [place]. tel:[phone] Specialist: Tim Carrasquillo [facility] [address], [place], [address]. tel:[phone] ring Provider: Adeel Tang, [facility] [address], [place], [address]. tel:[phone] Office/Outpa tient Visit, Est [facility] , [address], [place], [address], [place] tel:[phone] [facility] , Rheumatoid Arthritis (chief complaint) Rheumatoid ArthritisLON G-TERM (CURRENT) USE OF STEROIDS 2 María Adeel. [facility] [address], [place], [address], [place]. tel:[phone] Specialist: Tim Carrasquillo, [facility] [address] [place] [address] [address], [place], [address]. tel:[phone] ring Provider: Adeel Tang, [facility] [address], [place], [address]. tel:[phone] Office/Outpa tient Visit, New [facility] , [address], [place], [address], [place] tel:[phone] [facility] , Pulmonary infiltrates (chief complaint) Unspecified inflammatory polyarthropa thyLONG-TERM (CURRENT) USE OF STEROIDS 2 María Adeel. [facility] [address], [place], [address], [place]. tel:[phone] Specialist: Tim Carrasquillo, [address], [place], [address]. tel:[phone] ring Provider: Adeel Tang, [facility] [address], [place], [address]. tel:[phone] Family History Family Member Type Diagnosis Age At Onset Sister Problem (finding) malignant neoplasm of o vary Father Problem (finding) cancer of colon Immunizations Vaccine Date Status Comments COVID-19 [employer] administered S ource: Other Provider Payers Payer name Insurance type Covered constitution party ID Celine rogers(s) [facility] [id number] Social History Type Description Quantity Date Captured [...] orthopedic urgent care. Related to Other dorsalgia Continue hydroxychlo roquine 400 mg/day, methotrexate 25 [...] safety monitoring ophthalmologic evaluation. Related to Other nursing home (current) drug therapy Continue hydroxychlo roquine 400 [...] safety monitoring ophthalmologic evaluation. 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 Related to Other coin machine assembler (current) drug therapy Continue input as ne eded with her primary care provider or psychologist/psychiatrist.Minimize prednisone usage as able. Related to Anxiety Continue hydroxychlo roquine 400 mg/day and methotrexate [...] safety monitoring ophthalmologic evaluation. Related to Other coin machine assembler (current) drug therapy Continue input as ne eded with her primary care provider or psychologist/psychiatrist.We will pursue prednisone tapering as above. Related to Anxiety After discussion of potential treatment options, risks [...] performed every 3 months. Related to Other coin machine assembler (current) drug therapy Continue input as ne eded with her primary care provider or psychologist/psychiatrist. Related to Anxiety Continue current ant i-rheumatic medications unchanged.I will consider PFT and potential update of chest imaging. 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 Related to Other nursing home (current) drug therapy I again urged patien t to update evaluation with her primary care provider or a psychologist/psychiatrist. Related to Anxiety Continue current ant i-rheumatic medications unchanged, except [...] performed every 3 months. Related to Other nursing home (current) drug therapy I urged patient to u pdate her evaluation with her primary care provider or a psychologist/psychiatrist. Related to Anxiety Continue current ant i-rheumatic medications unchanged.I will strongly consider PFT and potential update of chest imaging.The patient may be moving to [facility] if her gets the new job that they anticipate. 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 Related to Other coin machine assembler (current) drug therapy I encouraged the pat elizabeth to pursue therapy to the shoulder, which she prefers to do initially through her chiropractor, perhaps with deep tissue massage. Related to Pain in right shoulder Continue current ant i-rheumatic medications unchanged. 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 Related to Other coin machine assembler (current) drug therapy Continue current ant i-rheumatic medications unchanged, except option to decrease prednisone from 5 milligrams to 4 milligrams per day.We will consider left knee joint corticosteroid injection. 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 Related to Shoulder joint pain The patient will hav e CBC, Cr, transaminases and albumin performed every 2-3 months. Related to Other coin machine assembler (current) drug therapy Continue current ant i-rheumatic [...]
--- OUTSIDE RECORDS SUMMARY | 2023-03-27 18:59 | XMS_ITS | Continuity of Care Document ---
Author Name Unknown Organization [facility] Address [address] [place] [address] Phone Care Team Providers Care Hand Laminator Name Role Phone Sarah Rowan DO Unavailable [...] [facility]ants , [address], [place], [address], [place] tel:[phone] [facility] , No Information 3 Skemp Pearl Sarah. [address], [place], [address], [place]. tel:[phone] [facility] , [address], [place], [address], [place] tel:[phone] [facility] , No Information 3 Skemp Pearl Sarah. [address], [address], [place], [address], [place]. tel:[phone] [facility] , [address], [place], [address], [place] tel:[phone] [facility] , No Information 3 Skemp Pearl Sarah. [address], [address], [place], [address], [place]. tel:[phone] Office/Outpa tient Visit, Est [facility] , [address], [place], [address], [place] tel:[phone] [facility] , Rheumatoid arthritis (chief complaint)Mo nitor Chronic High Risk Meds (chief complaint) RA w/ rheumatoid factor of multiple sites w/o organ involvementO ther group home (current) drug therapyOther dorsalgia 3 María Denis. [facility] [address], [place], [address], [place]. tel:[phone] , [facility] [address], [place], [address].Refer ring Provider: Adeel Tang, [facility] [address], [place], [address]. tel:[phone] [facility] , [address], [place], [address], [place] tel:[phone] [facility] No Information 2 María Adeel. [facility] [address], [place], [address], [place]. tel:[phone] [facility] , [address], [place], [address], [place] tel:[phone] [facility] No Information 2 María Adeel. [facility] [address], [place], [address], [place]. tel:[phone] [facility] , [address], [place], [address], [place] tel:[phone] [facility] , No Information 2 María Adeel. [facility] [address], [place], [address], [place]. tel:[phone] Office/Outpa tient Visit, Est [facility] , [address], [place], [address], [place] tel:[phone] [facility] , Rheumatoid arthritis (chief complaint)Mo nitor Chronic High Risk Meds (chief complaint) RA w/ rheumatoid factor of multiple sites w/o organ involvementO ther termite helper (current) drug therapy 2 María Adeel. [facility] [address], [place], [address], [place]. tel:[phone] , [facility] [address], [place], [address].Refer ring Provider: Adeel Tang, [facility] [address], [place], [address]. tel:[phone] [facility] , [address], [place], [address], [place] tel:[phone] [facility] , No Information 2 María Denis. [facility] [address], [place], [address], [place]. tel:[phone] Referring Provider: Adeel Tang, [facility] [address], [place], [address]. tel:[phone] Office/Outpa tient Visit, Est [facility] , [address], [place], [address], [place] tel:[phone] [facility] , Rheumatoid arthritis (chief complaint)Mo nitor Chronic High Risk Meds (chief complaint) RA w/ rheumatoid factor of multiple sites w/o organ involvementO ther group home (current) drug therapy María Denis. [facility] [address], [place], [address], [place]. tel:[phone] , [facility] [address], [place], [address].Refer ring Provider: Adeel Tang, [facility] [address], [place], [address]. tel:[phone] Office/Outpa tient Visit, Est [facility] , [address], [place], [address], [place] tel:[phone] [facility] , Rheumatoid arthritis (chief complaint)Mo nitor Chronic High Risk Meds (chief complaint) AnxietyRA w/ rheumatoid factor of multiple sites w/o organ involvementO ther termite helper (current) drug therapy 0 María Denis. [facility] [address], [place], [address], [place]. tel:[phone] , [facility] [address], [place], [address].Refer ring Provider: Adeel Tang, [facility] [address], [place], [address]. tel:[phone] Office/Outpa tient Visit, Est [facility] , [address], [place], [address], [place] tel:[phone] [facility] , Rheumatoid arthritis (chief complaint)Mo nitor Chronic High Risk Meds (chief complaint) AnxietyRA w/ rheumatoid factor of multiple sites w/o organ involvementO ther group home (current) drug therapy 0 María Denis. [facility] [address], [place], [address], [place]. tel:[phone] , [facility] [address], [place], [address].Refer ring Provider: Adeel Tang, [facility] [address], [place], [address]. tel:[phone] Office/Outpa tient Visit, Est [facility] , [address], [place], [address], [place] tel:[phone] [facility] , Rheumatoid arthritis (chief complaint)Mo nitor Chronic High Risk Meds (chief complaint) AnxietyRA w/ rheumatoid factor of multiple sites w/o organ involvementO ther group home (current) drug therapy 201 9 María Denis. [facility] [address], [place], [address], [place]. tel:[phone] , [address], [place], [address].Refer ring Provider: Adeel Tang, [facility] [address], [place], [address]. tel:[phone] Office/Outpa tient Visit, Est [facility] , [address], [place], [address], [place] tel:[phone] [facility] , Rheumatoid arthritis (chief complaint)Mo nitor Chronic High Risk Meds (chief complaint) AnxietyRA w/ rheumatoid factor of multiple sites w/o organ involvementO ther termite helper (current) drug therapy Aug- 8 María Denis. [facility] [address], [place], [address], [place]. tel:[phone] , [address], [place], [address].Refer ring Provider: Adeel Tang, [facility] [address], [place], [address]. tel:[phone] Office/Outpa tient Visit, Est [facility] , [address], [place], [address], [place] tel:[phone] [facility] , Rheumatoid arthritis (chief complaint)Mo nitor Chronic High Risk Meds (chief complaint) RA w/ rheumatoid factor of multiple sites w/o organ involvementO ther group home (current) drug therapyAnxie ty Nov-0 8 María Denis. [facility] [address], [place], [address], [place]. tel:[phone] Specialist: Tim Carrasquillo, [address], [place], [address]. tel:[phone]: Adeel Tang, [facility] [address], [place], [address]. tel:[phone] Office/Outpa tient Visit, Est [facility] , [address], [place], [address], [place] tel:[phone] [facility] , Rheumatoid arthritis (chief complaint)Mo nitor Chronic High Risk Meds (chief complaint) RA w/ rheumatoid factor of multiple sites w/o organ involvementO ther termite helper (current) drug therapy María Denis. [facility] [address], [place], [address], [place]. tel:[phone] Specialist: Tim Carrasquillo, [address], [place], [address]. tel:[phone]: Adeel Tang, [facility] [address], [place], [address]. tel:[phone] [facility] , [address], [place], [address], [place] tel:[phone] [facility] , Rheumatoid arthritis (chief complaint)Mo nitor Chronic High Risk Meds (chief complaint) RA w/ rheumatoid factor of multiple sites w/o organ involvementO ther termite helper (current) drug therapyPain in right shoulder María Denis. [facility] [address], [place], [address], [place]. tel:[phone] Specialist: Tim Carrasquillo, [address], [place], [address]. tel:[phone] ring Provider: Adeel Tang, [facility] [address], [place], [address]. tel:[phone] Office/Outpa tient Visit, Est [facility] , [address], [place], [address], [place] tel:[phone] [facility] , Rheumatoid arthritis (chief complaint)Mo nitor Chronic High Risk Meds (chief complaint) RA w/ rheumatoid factor of multiple sites w/o organ involvementO ther group home (current) drug therapy 6 María Denis. [facility] [address], [place], [address], [place]. tel:[phone] Specialist: Tim Carrasquillo[address], [place], [address]. tel:[phone] Provider: Adeel Tang, [facility] [address], [place], [address]. tel:[phone] Office/Outpa tient Visit, Est [facility] , [address], [place], [address], [place] tel:[phone] [facility] , Rheumatoid arthritis (chief complaint)Mo nitor Chronic High Risk Meds (chief complaint) RA w/ rheumatoid factor of multiple sites w/o organ involvementO ther group home (current) drug therapyShoul velasquez joint pain María Denis. [facility] [address], [place], [address], [place]. tel:[phone] Specialist: Tim Carrasquillo, [address], [place], [address]. tel:[phone]: Adeel Tang, [facility] [address], [place], [address]. tel:[phone] Office/Outpa tient Visit, Est [facility] , [address], [place], [address], [place] tel:[phone] [facility] , Rheumatoid arthritis (chief complaint)Mo nitor Chronic High Risk Meds (chief complaint) Rheumatoid arthritisThe rapeutic Drug MonitoringFi nger joint contracture Feb- María Denis. [facility] [address], [place], [address], [place]. tel:[phone] Specialist: Tim Carrasquillo, [facility] [address] [place] [address] [address], [place], [address]. tel:[phone] ring Provider: Adeel Tang, [facility] [address], [place], [address]. tel:[phone] Office/Outpa tient Visit, Est [facility] , [address], [place], [address], [place] tel:[phone] [facility] , Rheumatoid Arthritis (chief complaint) Rheumatoid ArthritisThe rapeutic Drug MonitoringPa in in joint involving lower leg María Denis. [facility] [address], [place], [address], [place]. tel:[phone] Specialist: Tim Carrasquillo, [address], [place], [address]. tel:[phone] ring Provider: Adeel Tang, [facility] [address], [place], [address]. tel:[phone] Office/Outpa tient Visit, Est [facility] , [address], [place], [address], [place] tel:[phone] [facility] , Rheumatoid Arthritis (chief complaint) Rheumatoid ArthritisThe rapeutic Drug MonitoringPa in in joint involving lower legPain in joint involving shoulder regionUnspec ified disorder of skin and subcutaneous tissue 4 María Denis. [facility] [address], [place], [address], [place]. tel:[phone] Specialist: Tim Carrasquillo, [facility] [address] [place] [address] [address], [place], [address]. tel:[phone] ring Provider: Adeel Tang, [facility] [address], [place], [address]. tel:[phone] Office/Outpa tient Visit, Est [facility] , [address], [place], [address], [place] tel:[phone] [facility] , Rheumatoid Arthritis (chief complaint) Rheumatoid ArthritisThe rapeutic Drug MonitoringPa in in joint involving shoulder region 4 María Denis. [facility] [address], [place], [address], [place]. tel:[phone] Specialist: Tim Carrasquillo, [facility] [address] [place] [address] [address], [place], [address]. tel:[phone] ring Provider: Adeel Tang, [facility] [address], [place], [address]. tel:[phone] Office/Outpa tient Visit, Est [facility] , [address], [place], [address], [place] tel:[phone] [facility] , Rheumatoid Arthritis (chief complaint) Rheumatoid ArthritisThe rapeutic Drug MonitoringLO NG-TERM (CURRENT) USE OF STEROIDS 3 María Denis. [facility] [address], [place], [address], [place]. tel:[phone] Specialist: Tim Carrasquillo, [facility] [address] [place] [address] [address], [place], [address]. tel:[phone] Provider: Adeel Tang, [facility] [address], [place], [address]. tel:[phone] Office/Outpa tient Visit, Est [facility] , [address], [place], [address], [place] tel:[phone] [facility] , Rheumatoid Arthritis (chief complaint) Rheumatoid ArthritisThe rapeutic Drug MonitoringLO NG-TERM (CURRENT) USE OF STEROIDSCoug h 3 María Denis. [facility] [address], [place], [address], [place]. tel:[phone] Specialist: Tim Carrasquillo, [facility] [address] [place] [address] [address], [place], [address]. tel:[phone] Provider: Adeel Tang, [facility] [address], [place], [address]. tel:[phone] Office/Outpa tient Visit, Est [facility] , [address], [place], [address], [place] tel:[phone] [facility] , Rheumatoid Arthritis (chief complaint) Rheumatoid ArthritisThe rapeutic Drug MonitoringLO NG-TERM (CURRENT) USE OF STEROIDS May- 3 María Denis. [facility] [address], [place], [address], [place]. tel:[phone] Specialist: Tim Carrasquillo, [facility] [address], [place], [address]. tel:[phone] ring Provider: Adeel Tang, [facility] [address], [place], [address]. tel:[phone] Office/Outpa tient Visit, Est [facility] , [address], [place], [address], [place] tel:[phone] [facility] , Rheumatoid Arthritis (chief complaint) Rheumatoid ArthritisThe rapeutic Drug MonitoringUl cer of ankle 3 María Denis. [facility] [address], [place], [address], [place]. tel:[phone] Specialist: Tim Carrasquillo, [facility] [address], [place], [address]. tel:[phone] Provider: Adeel Tang, [facility] [address], [place], [address]. tel:[phone] Office/Outpa tient Visit, Est [facility] , [address], [place], [address], [place] tel:[phone] [facility] , Rheumatoid Arthritis (chief complaint) Rheumatoid ArthritisThe rapeutic Drug MonitoringLO NG-TERM (CURRENT) USE OF STEROIDS 2 María Denis. [facility] [address], [place], [address], [place]. tel:[phone] Specialist: Tim Carrasquillo [facility] [address], [place], [address]. tel:[phone] ring Provider: Adeel Tang, [facility] [address], [place], [address]. tel:[phone] Office/Outpa tient Visit, Est [facility] , [address], [place], [address], [place] tel:[phone] [facility] , Rheumatoid Arthritis (chief complaint) Rheumatoid ArthritisLON G-TERM (CURRENT) USE OF STEROIDS 2 María Adeel. [facility] [address], [place], [address], [place]. tel:[phone] Specialist: Tim Carrasquillo, [facility] [address] [place] [address] [address], [place], [address]. tel:[phone] ring Provider: Adeel Tang, [facility] [address], [place], [address]. tel:[phone] Office/Outpa tient Visit, New [facility] , [address], [place], [address], [place] tel:[phone] [facility] , Pulmonary infiltrates (chief complaint) Unspecified inflammatory polyarthropa thyLONG-TERM (CURRENT) USE OF STEROIDS 2 María Adeel. [facility] [address], [place], [address], [place]. tel:[phone] Specialist: Tim Carrasquillo, [address], [place], [address]. tel:[phone] ring Provider: Adeel Tang, [facility] [address], [place], [address]. tel:[phone] Family History Family Member Type Diagnosis Age At Onset Sister Problem (finding) malignant neoplasm of o vary Father Problem (finding) cancer of colon Immunizations Vaccine Date Status Comments COVID-19 [employer] administered S ource: Other Provider Payers Payer name Insurance type Covered green party ID Celine rogers(s) [facility] [id number] Social History Type Description Quantity Date Captured [...] safety monitoring ophthalmologic evaluation. Related to Other group home (current) drug therapy Continue hydroxychlo roquine [...] safety monitoring ophthalmologic evaluation. Related to Other termite helper (current) drug therapy Continue hydroxychlo roquine [...] safety monitoring ophthalmologic evaluation. Related to Other termite helper (current) drug therapy Continue input as [...] safety monitoring ophthalmologic evaluation. Related to Other termite helper (current) drug therapy Continue input as [...] performed every 3 months. Related to Other termite helper (current) drug therapy Continue input as ne eded with her primary care provider or psychologist/psychiatrist. Related to Anxiety Continue current ant i-rheumatic medications unchanged.I will consider PFT and potential update of chest imaging. 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 Related to Other group home (current) drug therapy I again urged [...] performed every 3 months. Related to Other group home (current) drug therapy I urged patient to u pdate her evaluation with her primary care provider or a psychologist/psychiatrist. Related to Anxiety Continue current ant i-rheumatic medications unchanged.I will strongly consider PFT and potential update of chest imaging.The patient may be moving to [facility] if her gets the new job that they anticipate. 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 Related to Other termite helper (current) drug therapy Continue current ant i-rheumatic medications unchanged.The patient may be moving to [facility] if her gets the new job that they anticipate. 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 Related to Other termite helper (current) drug therapy I encouraged the pat [...] performed every 3 months. Related to Other termite helper (current) drug therapy Continue current ant i-rheumatic medications unchanged, except option to decrease prednisone from 5 milligrams to 4 milligrams per day.We will consider left knee joint corticosteroid injection. 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 Related to Other termite helper (current) drug therapy After discussion of potential treatment options, risks and benefits, the patient and I are in agreement with pursuing local corticosteroid injection. Related to Shoulder joint pain The patient will hav e CBC, Cr, transaminases and albumin performed every 2-3 months. Related to Other termite helper (current) drug therapy Continue current ant [...]
[2023-03-27 19:20] VITALS: BP 134/76; PULSE 92; RESP 10; O2SAT 88
--- NOTE | 2023-03-27 19:20 | ED.NURSE ---
patient is dropping into 88% on room air so applied O2 at 2 liters via nc. Increased pulse ox up to 100%. rating pain at 6/10 scale. strong pedal pulses and feet are cold so placed warm blanket on. resting in the bed with spouse at the bedside.
[2023-03-27 19:40] VITALS: PULSE 88; RESP 16; O2SAT 100
[2023-03-27] MEDS: MORPHINE 2 MG/ML inj IVP (20:00)
[2023-03-27] MEDS: CYCLOBENZAPRINE HCL 10 MG TABLET PO (20:25)
[2023-03-27] MEDS: KETOROLAC 15 MG/ML inj IVP (20:26)
--- NOTE | 2023-03-27 20:31 | ED.NURSE ---
given patient some more meds--Toradol 15 mg IVP and cyclobenzaprine 10mg orally. patient stated hurts right in the groin area. patient would be fine with spending the night. Assured patient need to give these medications and wait until working then we will attempt to get up and walk.
[2023-03-27 20:35] VITALS: PULSE 88; RESP 18; O2SAT 96
[2023-03-27] MEDS: OXYCODONE 5 MG TABLET 10 MG PO (21:23)
[2023-03-27] MEDS: ACETAMINOPHEN 500 MG TABLET 1000 MG PO (21:23)
== END 2023-03-27 21:39 | disposition home or self-care (01) ==
PROVIDERS: Emergency Provider Student in an Organized Health Care Education/Training Program; PCP Family Medicine
DX: M25.552 Pain in left hip (principal); Z47.1 Aftercare following joint replacement surgery
CPT/HCPCS: 73502; 94761; 96374; 96375; 99283; 99284; A9270; J1170; J1885; J2270

== ENCOUNTER 2023-05-02 07:30 | Outpatient (RCR) | payer BC, SELFPAY | END 2023-08-30 23:59 | disposition home or self-care (01) | PROVIDERS: PCP Family Medicine; Visit Provider Orthopaedic Surgery | DX: Z96.642 Presence of left artificial hip joint (principal); R26.81 Unsteadiness on feet; M62.81 Muscle weakness (generalized); Z51.89 Encounter for other specified aftercare | CPT/HCPCS: 97110; 97161 ==

== ENCOUNTER 2023-07-14 12:44 | Outpatient (CLI) | payer BC, SELFPAY | END 2023-07-14 12:45 | disposition home or self-care (01) | LOC: WOUND 12:45 | PROVIDERS: PCP Family Medicine; Visit Provider Nurse Practitioner Family | DX: L97.815 Non-pressure chronic ulcer of other part of right lower leg with muscle involvement without evidence of necrosis (principal); M06.9 Rheumatoid arthritis, unspecified; Z79.60 Long term (current) use of unspecified immunomodulators and immunosuppressants | CPT/HCPCS: 11043; 99213 ==

== ENCOUNTER 2023-07-21 08:37 | Outpatient (CLI) | payer BC, SELFPAY ==
--- OUTSIDE RECORDS SUMMARY | 2023-07-21 08:42 | XMS_ITS | Continuity of Care Document ---
Author Name Unknown Organization [facility] Address [address] [place] [address] Phone Care Team Providers Care Printing Manager Name Role Phone Leon Montgomery MD Unavailable Unavailabl e Allergies, Adverse Reactions, Alerts Substance Reaction Status Criticality aspirin Active No Information Medications Medication Instructions Dosage Effective Dates (start - stop) Status Comments methotrexate sodium 2.5 mg tablet TAKE 10 TABLETS (25MG) BY ORAL ROUTE ONCE WEEKLY - Active DENIED-OVERDU E FOR LABS AND APPT. PLEASE CALL OFFICE TO SCHEDULE FOR REFILL HYDROXYCHLOROQUINE 200 MG TAB TAKE 2 TABLETS BY MOUTH EVERY DAY - Active FOLIC ACID TABS 1MG TAKE [...] route every day 5 MG - Active methotrexate sodium 2.5 mg tablet TAKE 10 TABLETS (25MG) BY ORAL ROUTE ONCE WEEKLY - No Longer Active Procedures Procedure Date Office/Outpatient Visit, Est Office/Outpatient Visit, Est Routine Venipuncture Assay Of Serum Albumin Assay Of Creatinine Transferase (Ast) (Sgot) May-12-2022 Alanine Amino (Alt) (Sgpt) Complete Cbc WAuto [...] [facility] , [address], [place], [address], [place] tel:[phone] [facility] No Information 3 Valentina Quintero. [address], [address], [place], [address], [place]. tel:[phone] [facility] , [address], [place], [address], [place] tel:[phone] [facility] , No Information 3 Nicolas Villanueva. [facility] [address], [place], [address], [place]. tel:[phone] [facility] , [address], [place], [address], [place] tel:[phone] [facility] , No Information 3 Philippe Smith. [address], [place], [address], [place]. tel:[phone] Office/Outpa tient Visit, Est [facility] , [address], [place], [address], [place] tel:[phone] [facility] , Rheumatoid arthritis (chief complaint)Mo nitor Chronic High Risk Meds (chief complaint) RA w/ rheumatoid factor of multiple sites w/o organ involvementO ther fci (current) drug therapyOther dorsalgia 3 María Denis. [facility] [address], [place], [address], [place]. tel:[phone] , [facility] [address], [place], [address].Refer ring Provider: Adeel Daniel W, [facility] [address], [place], [address]. tel:[phone] [facility] , [address], [place], [address], [place] tel:[phone] [facility] No Information 2 María Denis. [facility] [address], [place], [address], [place]. tel:[phone] [facility] , [address], [place], [address], [place] tel:[phone] [facility] No Information 2 María Denis. [facility] [address], [place], [address], [place]. tel:[phone] [facility] , [address], [place], [address], [place] tel:[phone] [facility] , No Information 2 María Denis. [facility] [address], [place], [address], [place]. tel:[phone] Office/Outpa tient Visit, Est [facility] , [address], [place], [address], [place] tel:[phone] [facility] , Rheumatoid arthritis (chief complaint)Mo nitor Chronic High Risk Meds (chief complaint) RA w/ rheumatoid factor of multiple sites w/o organ involvementO ther fci (current) drug therapy 2 María Denis. [facility] [address], [place], [address], [place]. tel:[phone] , [facility] [address], [place], [address].Refer ring Provider: Adeel Tang, [facility] [address], [place], [address]. tel:[phone] [facility] , [address], [place], [address], [place] [phone] [facility] , No Information 2 María Denis. [facility] [address], [place], [address], [place]. tel:[phone] Referring Provider: Adeel Tang, [facility] [address], [place], [address]. 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 [facility] [address], [place], [address], [place]. tel:[phone] , [facility] [address], [place], [address].Refer ring Provider: Adeel Tang, [facility] [address], [place], [address]. tel:[phone] Office/Outpa tient Visit, Est [facility] , [address], [place], [address], [place] tel:[phone] [facility] , Rheumatoid arthritis (chief complaint)Mo nitor Chronic High Risk Meds (chief complaint) AnxietyRA w/ rheumatoid factor of multiple sites w/o organ involvementO ther fci (current) drug therapy 0 María Denis. [facility] [address], [place], [address], [place]. tel:[phone] , [facility] [address], [place], [address].Refer ring Provider: Adeel Tang, [facility] [address], [place], [address]. 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 [facility] [address], [place], [address], [place]. tel:[phone] , [facility] [address], [place], [address].Refer ring Provider: Adeel Tang, [facility] [address], [place], [address]. tel:[phone] Office/Outpa tient Visit, Est [facility] , [address], [place], [address], [place] tel:[phone] [facility] , Rheumatoid arthritis (chief complaint)Mo nitor Chronic High Risk Meds (chief complaint) AnxietyRA w/ rheumatoid factor of multiple sites w/o organ involvementO ther fci (current) drug therapy 9 María Denis. [facility] [address], [place], [address], [place]. tel:[phone] , [facility] [address] [place] [address] [address], [place], [address].Refer ring Provider: Adeel Tang, [facility] [address], [place], [address]. 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 [facility] [address], [place], [address], [place]. tel:[phone] , [address], [place], [address].Refer ring Provider: Adeel Tang, [facility] [address], [place], [address]. tel:[phone] Office/Outpa tient Visit, Est [facility] , [address], [place], [address], [place] tel:[phone] [facility] , Rheumatoid arthritis (chief complaint)Mo nitor Chronic High Risk Meds (chief complaint) RA w/ rheumatoid factor of multiple sites w/o organ involvementO ther intermodal owner operator truck driver (current) drug therapyAnxie ty 8 María Denis. [facility] [address], [place], [address], [place]. tel:[phone] Specialist: Tim Carrasquillo, [facility] [address] [place] [address] [address], [place], [address]. tel:[phone] Provider: Adeel Tang, [facility] [address], [place], [address]. 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 [facility] [address], [place], [address], [place]. tel:[phone] Specialist: Tim Carrasquillo, [facility] [address] [place] [address] [address], [place], [address]. tel:[phone] Provider: Adeel Tang, [facility] [address], [place], [address]. tel:[phone] [facility] , [address], [place], [address], [place] tel:[phone] [facility] , Rheumatoid arthritis (chief complaint)Mo nitor Chronic High Risk Meds (chief complaint) RA w/ rheumatoid factor of multiple sites w/o organ involvementO ther intermodal owner operator truck driver (current) drug therapyPain in right shoulder María Denis. [facility] [address], [place], [address], [place]. tel:[phone] Specialist: Tim Carrasquillo, [facility] [address] [place] [address] [address], [place], [address]. tel:[phone] Provider: Adeel Tang, [facility] [address], [place], [address]. tel:[phone] Office/Outpa tient Visit, Est [facility] , [address], [place], [address], [place] tel:[phone] [facility] , Rheumatoid arthritis (chief complaint)Mo nitor Chronic High Risk Meds (chief complaint) RA w/ rheumatoid factor of multiple sites w/o organ involvementO ther fci (current) drug therapy 6 María Denis. [facility] [address], [place], [address], [place]. tel:[phone] Specialist: Tim Carrasquillo, [address], [place], [place], [facility]. tel:[phone] Provider: Adeel Tang, [facility] [address], [place], [address]. tel:[phone] Office/Outpa tient Visit, Est [facility] , [address], [place], [address], [place] tel:[phone] [facility] , Rheumatoid arthritis (chief complaint)Mo nitor Chronic High Risk Meds (chief complaint) RA w/ rheumatoid factor of multiple sites w/o organ involvementO ther fci (current) drug therapyShoul velasquez joint pain María Denis. [facility] [address], [place], [address], [place]. tel:[phone] Specialist: Tim Carrasquillo [address], [place], [address]. tel:[phone] ring Provider: Adeel Tang, [facility] [address], [place], [address]. tel:[phone] Office/Outpa tient Visit, Est [facility] , [address], [place], [address], [place] tel:[phone] [facility] , Rheumatoid arthritis (chief complaint)Mo nitor Chronic High Risk Meds (chief complaint) Rheumatoid arthritisThe rapeutic Drug MonitoringFi nger joint contracture Feb- María Denis. [facility] [address], [place], [address], [place]. tel:[phone] Specialist: Tim Carrasquillo, [facility] [address] [place] [address] [address], [place], [address]. tel:[phone] ring Provider: Adeel Tang, [facility] [address], [place], [address]. tel:[phone] Office/Outpa tient Visit, Est [facility] , [address], [place], [address], [place] tel:[phone] [facility] , Rheumatoid Arthritis (chief complaint) Rheumatoid ArthritisThe rapeutic Drug MonitoringPa in in joint involving lower leg María Denis. [facility] [address], [place], [address], [place]. tel:[phone] Specialist: Tim Carrasquillo, [address], [place], [address]. tel:[phone] ring Provider: Adeel Tang, [facility] [address], [place], [address]. tel:[phone] Office/Outpa tient Visit, Est [facility] , [address], [place], [address], [place] tel:[phone] [facility] , Rheumatoid Arthritis (chief complaint) Rheumatoid ArthritisThe rapeutic Drug MonitoringPa in in joint involving lower legPain in joint involving shoulder regionUnspec ified disorder of skin and subcutaneous tissue 4 María Denis. [facility] [address], [place], [address], [place]. tel:[phone] Specialist: Tmi Carrasquillo, [facility] [address] [place] [address] [address], [place], [address]. tel:[phone] ring Provider: Adeel Tang, [facility] [address], [place], [address]. tel:[phone] Office/Outpa tient Visit, Est [facility] , [address], [place], [address], [place] tel:[phone] [facility] , Rheumatoid Arthritis (chief complaint) Rheumatoid ArthritisThe rapeutic Drug MonitoringPa in in joint involving shoulder region 4 María Denis. [facility] [address], [place], [address], [place]. tel:[phone] Specialist: Tim Carrasquillo, [facility] [address], [place], [address]. tel:[phone] ring Provider: Adeel Tang, [facility] [address], [place], [address]. tel:[phone] Office/Outpa tient Visit, Est [facility] , [address], [place], [address], [place] tel:[phone] [facility] , Rheumatoid Arthritis (chief complaint) Rheumatoid ArthritisThe rapeutic Drug MonitoringLO NG-TERM (CURRENT) USE OF STEROIDS 3 María Denis. [facility] [address], [place], [address], [place]. tel:[phone] Specialist: Tim Carrasquillo, [address], [place], [address]. tel:[phone] ring Provider: Adeel Tang, [facility] [address], [place], [address]. tel:[phone] Office/Outpa tient Visit, Est [facility] , [address], [place], [address], [place] tel:[phone] [facility] , Rheumatoid Arthritis (chief complaint) Rheumatoid ArthritisThe rapeutic Drug MonitoringLO NG-TERM (CURRENT) USE OF STEROIDSCoug h 3 María Denis. [facility] [address], [place], [address], [place]. tel:[phone] Specialist: Tim Carrasquillo, [address], [place], [address]. tel:[phone] ring Provider: Adeel Tang, [facility] [address], [place], [address]. tel:[phone] Office/Outpa tient Visit, Est [facility] , [address], [place], [address], [place] tel:[phone] [facility] , Rheumatoid Arthritis (chief complaint) Rheumatoid ArthritisThe rapeutic Drug MonitoringLO NG-TERM (CURRENT) USE OF STEROIDS Sep-10 12-201 3 María Denis. [facility] [address], [place], [address], [place]. tel:[phone] Specialist: Tim Carrasquillo, [facility] [address], [place], [address]. tel:[phone] ring Provider: Adeel Tang, [facility] [address], [place], [address]. tel:[phone] Office/Outpa tient Visit, Est [facility] , [address], [place], [address], [place] tel:[phone] [facility] , Rheumatoid Arthritis (chief complaint) Rheumatoid ArthritisThe rapeutic Drug MonitoringUl cer of ankle 3 María Denis. [facility] [address], [place], [address], [place]. tel:[phone] Specialist: Tim Carrasquillo, [facility] [address] [place] [address] [address], [place], [address]. tel:[phone] ring Provider: Adeel aTng, [facility] [address], [place], [address]. tel:[phone] Office/Outpa tient Visit, Est [facility] , [address], [place], [address], [place] tel:[phone] [facility] , Rheumatoid Arthritis (chief complaint) Rheumatoid ArthritisThe rapeutic Drug MonitoringLO NG-TERM (CURRENT) USE OF STEROIDS 2 María Denis. [facility] [address], [place], [address], [place]. tel:[phone] Specialist: Tim Carrasquillo [facility] [address], [place], [address]. tel:[phone] ring Provider: Adeel Tang, [facility] [address], [place], [address]. tel:[phone] Office/Outpa tient Visit, Est [facility] , [address], [place], [address], [place] tel:[phone] [facility] , Rheumatoid Arthritis (chief complaint) Rheumatoid ArthritisLON G-TERM (CURRENT) USE OF STEROIDS 2 María Adeel. [facility] [address], [place], [address], [place]. tel:[phone] Specialist: Tim Carrasquillo, [facility] [address], [place], [address]. tel:[phone] ring Provider: Adeel Tang, [facility] [address], [place], [address]. tel:[phone] Office/Outpa tient Visit, New [facility] , [address], [place], [address], [place] tel:[phone] [facility] , Pulmonary infiltrates (chief complaint) Unspecified inflammatory polyarthropa thyLONG-TERM (CURRENT) USE OF STEROIDS 2 María Adeel. [facility] [address], [place], [address], [place]. tel:[phone] Specialist: Tim Carrasquillo, [facility] [address], [place], [address]. tel:[phone] ring Provider: Adeel Tang, [facility] [address], [place], [address]. tel:[phone] Family History Family Member Type Diagnosis Age At Onset Sister Problem (finding) malignant neoplasm of o vary Father Problem (finding) cancer of colon Immunizations Vaccine Date Status Comments COVID-19 [employer] administered S ource: Other Provider Payers Payer name Insurance type Covered republican ID Authoriza tipoornima(s) [facility] [id number] Social History Type Description Quantity Date Captured Comments Alcohol Use Details Unknown Caffeine Use Details Unknown Tobacco Use Status No Information Smoking Status No Information Sex Female Chief Complaint And Reason For Visit No Information Reason For Referral Reason For Referral No Information Plan Of Treatment Date Type Action Status Referral Ordered: XRay Exam Of Hand 2v Bilateral PA & oblique ordered History Of Present Illness Encounter Date Complaint [...] safety monitoring ophthalmologic evaluation. 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 Related to Other fci (current) drug therapy Continue input as ne [...] performed every 3 months. Related to Other fci (current) drug therapy The patient will hav e CBC, Cr, transaminases and albumin performed every 3 months. Related to Other fci (current) drug therapy Continue input as ne eded with her primary care provider or psychologist/psychiatrist. Related to Anxiety Continue current ant i-rheumatic medications unchanged.I will consider PFT and potential update of chest imaging. 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 Related to Other fci (current) drug therapy I urged patient to u pdate her evaluation with her primary care provider or a psychologist/psychiatrist. Related to Anxiety Continue current ant i-rheumatic medications unchanged.I will strongly consider PFT and potential update of chest imaging.The patient may be moving to [facility] if her gets the new job that they anticipate. 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 Related to Other [facility] (current) drug therapy I encouraged the pat elizabeth to pursue therapy to the shoulder, which she prefers to do initially through her chiropractor, perhaps with deep tissue massage. Related to Pain in right shoulder The patient will hav e CBC, Cr, transaminases and albumin performed every 3 months. Related to Other [facility] (current) drug therapy Continue current ant i-rheumatic [...] performed every 3 months. Related to Other [facility] (current) drug therapy After discussion of potential treatment options, risks and benefits, the patient and I are in agreement with pursuing local corticosteroid injection. Related to Shoulder joint pain The patient will hav e CBC, Cr, transaminases and albumin performed every 2-3 months. Related to Other [facility] (current) drug therapy Continue current ant i-rheumatic [...]
== END 2023-07-21 08:38 | disposition home or self-care (01) ==
LOC: WOUND 08:37
PROVIDERS: PCP Family Medicine; Visit Provider Nurse Practitioner Family
DX: L97.815 Non-pressure chronic ulcer of other part of right lower leg with muscle involvement without evidence of necrosis (principal); Z79.60 Long term (current) use of unspecified immunomodulators and immunosuppressants
CPT/HCPCS: 11042

== ENCOUNTER 2023-08-02 12:42 | Outpatient (CLI) | payer BC, SELFPAY | END 2023-08-02 12:43 | disposition home or self-care (01) | LOC: WOUND 12:42 | PROVIDERS: PCP Family Medicine; Visit Provider Nurse Practitioner Family | DX: L97.815 Non-pressure chronic ulcer of other part of right lower leg with muscle involvement without evidence of necrosis (principal); M06.9 Rheumatoid arthritis, unspecified; Z79.60 Long term (current) use of unspecified immunomodulators and immunosuppressants | CPT/HCPCS: 11042 ==

== ENCOUNTER 2023-08-08 08:33 | Outpatient (CLI) | payer BC, SELFPAY ==
--- OUTSIDE RECORDS SUMMARY | 2023-08-08 08:35 | XMS_ITS | Continuity of Care Document ---
Author Name Unknown Organization [facility] Address [address] [address] [place] [address] Phone Care Team Providers Care Rippler Name Role Phone Sarah Rowan DO Unavailable Unavailab le Allergies, Adverse Reactions, Alerts Substance Reaction Status Criticality aspirin Active No Information Medications Medication Instructions Dosage Effective Dates (start - stop) Status Comments folic acid 1 mg tablet TAKE 1 TABLET DAILY - Active methotrexate sodium 2.5 mg tablet TAKE 10 TABLETS (25MG) BY ORAL ROUTE ONCE WEEKLY - Active DENIED-OVERD UE FOR LABS AND APPT. PLEASE CALL OFFICE TO SCHEDULE FOR REFILL HYDROXYCHLOROQUINE 200 MG TAB TAKE 2 TABLETS BY MOUTH EVERY DAY - Active PREDNISONE 5 MG TABLET TAKE 1 & 1/2 TABLETS DAILY FOR 2 WEEKS, THEN 1 TABLET DAILY. - Active Enbrel SureClick 50 mg/mL (1 mL) subcutaneous pen injector INJECT 50 MG (1 ML) UNDER THE SKIN EVERY WEEK - Active Keppra 1,000 mg tablet take 1 tablet by oral route every 12 hours 1000 MG - Active cephalexin 500 mg capsule take 1 capsule by oral route every 6 hours for 21 days 500 MG - Active hydroxyzine HCl 10 mg tablet take 1 tablet by oral route every 6 hours as needed 1 tablet - Active venlafaxine 75 mg tablet take 3 tablets twice daily - Active lisinopril 5 mg tablet take 1 tablet by oral route every day 5 MG - Active FOLIC ACID TABS 1MG TAKE 1 TABLET DAILY - No Longer Active Procedures Procedure Date [...] [facility]ants , [address], [place], [address], [place] tel:[phone] [facility] , No Information 3 Skemp Pearl Sarah. [address], [place], [address], [place]. tel:[phone] [facility] , [address], [place], [address], [place] tel:[phone] [facility] , No Information 3 Skemp Pearl Sarah. [address], [address], [place], [address], [place]. tel:[phone] [facility] , [address], [place], [address], [place] tel:[phone] [facility] No Information 3 Valentina Quintero. [address], [address], [place], [address], [place]. tel:[phone] [facility] , [address], [place], [address], [place] tel:[phone] [facility] , No Information 3 Skemp Pearl Sarah. [address], [address], [place], [address], [place]. tel:[phone] Office/Outpa tient Visit, Est [facility] , [address], [place], [address], [place] tel:[phone] [facility] , Rheumatoid arthritis (chief complaint)Mo nitor Chronic High Risk Meds (chief complaint) RA w/ rheumatoid factor of multiple sites w/o organ involvementO ther care home (current) drug therapyOther dorsalgia 3 María Denis. [facility] [address], [place], [address], [place]. tel:[phone] , [facility] [address], [place], [address].Refer ring Provider: Adeel Daniel W, [facility] [address], [place], [address]. tel:[phone] [facility] , [address], [place], [address], [place] tel:[phone] [facility] No Information 2 María Denis. [facility] [address], [place], [address], [place]. tel:[phone] [facility] , [address], [place], [address], [place] tel:[phone] [facility] No Information 2 María Denis. [facility] [address], [place], [address], [place]. tel:[phone] [facility] , [address], [place], [address], [place] tel:[phone] [facility] , No Information 2 María Denis. [facility] [address], [place], [address], [place]. tel:[phone] Office/Outpa tient Visit, Est [facility] , [address], [place], [address], [place] tel:[phone] [facility] , Rheumatoid arthritis (chief complaint)Mo nitor Chronic High Risk Meds (chief complaint) RA w/ rheumatoid factor of multiple sites w/o organ involvementO ther care home (current) drug therapy 2 María Denis. [facility] [address], [place], [address], [place]. tel:[phone] , [facility] [address], [place], [address].Refer ring Provider: Adeel Tang, [facility] [address], [place], [address]. tel:[phone] [facility] , [address], [place], [address], [place] tel:[phone] [facility] , No Information 2 María Denis. [facility] [address], [place], [address], [place]. tel:[phone] Referring Provider: Adeel Tang, [facility] [address], [place], [address]. tel:[phone] Office/Outpa tient Visit, Est [facility] , [address], [place], [address], [place] tel:[phone] [facility] , Rheumatoid arthritis (chief complaint)Mo nitor Chronic High Risk Meds (chief complaint) RA w/ rheumatoid factor of multiple sites w/o organ involvementO ther ad terminal makeup operator (current) drug therapy 1 María Denis. [facility] [address], [place], [address], [place]. tel:[phone] , [facility] [address], [place], [address].Refer ring Provider: Adeel Tang, [facility] [address], [place], [address]. [phone] Office/Outpa tient Visit, Est [facility] , [address], [place], [address], [place] tel:[phone] [facility] , Rheumatoid arthritis (chief complaint)Mo nitor Chronic High Risk Meds (chief complaint) AnxietyRA w/ rheumatoid factor of multiple sites w/o organ involvementO ther care home (current) drug therapy 0 María Denis. [facility] [address], [place], [address], [place]. tel:[phone] , [address], [place], [address].Refer ring Provider: Adeel Tang, [facility] [address], [place], [address]. [phone] Office/Outpa tient Visit, Est [facility] , [address], [place], [address], [place] tel:[phone] [facility] , Rheumatoid arthritis (chief complaint)Mo nitor Chronic High Risk Meds (chief complaint) AnxietyRA w/ rheumatoid factor of multiple sites w/o organ involvementO ther ad terminal makeup operator (current) drug therapy 0 María Denis. [facility] [address], [place], [address], [place]. tel:[phone] , [facility] [address] [place] [address] [address], [place], [address].Refer ring Provider: Adeel Tang, [facility] [address], [place], [address]. tel:[phone] Office/Outpa tient Visit, Est [facility] , [address], [place], [address], [place] tel:[phone] [facility] , Rheumatoid arthritis (chief complaint)Mo nitor Chronic High Risk Meds (chief complaint) AnxietyRA w/ rheumatoid factor of multiple sites w/o organ involvementO ther care home (current) drug therapy 8 9 María Denis. [facility] [address], [place], [address], [place]. tel:[phone] , [facility] [address] [place] [address] [address], [place], [address].Refer ring Provider: Adeel Tang, [facility] [address], [place], [address]. tel:[phone] Office/Outpa tient Visit, Est [facility] , [address], [place], [address], [place] tel:[phone] [facility] , Rheumatoid arthritis (chief complaint)Mo nitor Chronic High Risk Meds (chief complaint) AnxietyRA w/ rheumatoid factor of multiple sites w/o organ involvementO ther care home (current) drug therapy 8 María Denis. [facility] [address], [place], [address], [place]. tel:[phone] , [facility] [address] [place] [address] [address], [place], [address].Refer ring Provider: Adeel Tang, [facility] [address], [place], [address]. tel:[phone] Office/Outpa tient Visit, Est [facility] , [address], [place], [address], [place] tel:[phone] [facility] , Rheumatoid arthritis (chief complaint)Mo nitor Chronic High Risk Meds (chief complaint) RA w/ rheumatoid factor of multiple sites w/o organ involvementO ther ad terminal makeup operator (current) drug therapyAnxie ty 201 8 María Denis. [facility] [address], [place], [address], [place]. tel:[phone] Specialist: Tim Carrasquillo, [facility] [address] [place] [address] [address], [place], [address]. tel:[phone] ring Provider: Adeel Tang, [facility] [address], [place], [address]. tel:[phone] Office/Outpa tient Visit, Est [facility] , [address], [place], [address], [place] tel:[phone] [facility] , Rheumatoid arthritis (chief complaint)Mo nitor Chronic High Risk Meds (chief complaint) RA w/ rheumatoid factor of multiple sites w/o organ involvementO ther ad terminal makeup operator (current) drug therapy 7 María Denis. [facility] [address], [place], [address], [place]. tel:[phone] Specialist: Tim Carrasquillo, [facility] [address] [place] [address] [address], [place], [address]. tel:[phone] ring Provider: Adeel Tang, [facility] [address], [place], [address]. tel:[phone] [facility] , [address], [place], [address], [place] tel:[phone] [facility] , Rheumatoid arthritis (chief complaint)Mo nitor Chronic High Risk Meds (chief complaint) RA w/ rheumatoid factor of multiple sites w/o organ involvementO ther ad terminal makeup operator (current) drug therapyPain in right shoulder 7 María Denis. [facility] [address], [place], [address], [place]. tel:[phone] Specialist: Tim Carrasquillo, [address], [place], [address]. tel:[phone] ring Provider: Adeel Tang, [facility] [address], [place], [address]. tel:[phone] Office/Outpa tient Visit, Est [facility] , [address], [place], [address], [place] tel:[phone] [facility] , Rheumatoid arthritis (chief complaint)Mo nitor Chronic High Risk Meds (chief complaint) RA w/ rheumatoid factor of multiple sites w/o organ involvementO ther ad terminal makeup operator (current) drug therapy Feb- 6 María Denis. [facility] [address], [place], [address], [place]. tel:[phone] Specialist: Tim Carrasquillo, [address], [place], [address]. tel:[phone] ring Provider: Adeel Tang, [facility] [address], [place], [address]. tel:[phone] Office/Outpa tient Visit, Est [facility] , [address], [place], [address], [place] tel:[phone] [facility] , Rheumatoid arthritis (chief complaint)Mo nitor Chronic High Risk Meds (chief complaint) RA w/ rheumatoid factor of multiple sites w/o organ involvementO ther care home (current) drug therapyShoul velasquez joint pain 5 María Denis. [facility] [address], [place], [address], [place]. tel:[phone] Specialist: Tim Carrasquillo, [facility] [address] [place] [address] [address], [place], [address]. tel:[phone] ring Provider: Adeel Tang, [facility] [address], [place], [address]. tel:[phone] Office/Outpa tient Visit, Est [facility] , [address], [place], [address], [place] tel:[phone] [facility] , Rheumatoid arthritis (chief complaint)Mo nitor Chronic High Risk Meds (chief complaint) Rheumatoid arthritisThe rapeutic Drug MonitoringFi nger joint contracture 5 María Denis. [facility] [address], [place], [address], [place]. tel:[phone] Specialist: Tim Carrasquillo, [address], [place], [address]. tel:[phone] ring Provider: Adeel Tang, [facility] [address], [place], [address]. tel:[phone] Office/Outpa tient Visit, Est [facility] , [address], [place], [address], [place] tel:[phone] [facility] , Rheumatoid Arthritis (chief complaint) Rheumatoid ArthritisThe rapeutic Drug MonitoringPa in in joint involving lower leg 4 María Denis. [facility] [address], [place], [address], [place]. tel:[phone] Specialist: Tim Carrasquillo, [facility] [address], [place], [address]. tel:[phone] ring Provider: Adeel Tang, [facility] [address], [place], [address]. tel:[phone] Office/Outpa tient Visit, Est [facility] , [address], [place], [address], [place] tel:[phone] [facility] , Rheumatoid Arthritis (chief complaint) Rheumatoid ArthritisThe rapeutic Drug MonitoringPa in in joint involving lower legPain in joint involving shoulder regionUnspec ified disorder of skin and subcutaneous tissue 4 María Denis. [facility] [address], [place], [address], [place]. tel:[phone] Specialist: Tim Carrasquillo, [facility] [address] [place] [address] [address], [place], [address]. tel:[phone] ring Provider: Adeel Tang, [facility] [address], [place], [address]. tel:[phone] Office/Outpa tient Visit, Est [facility] , [address], [place], [address], [place] tel:[phone] [facility] , Rheumatoid Arthritis (chief complaint) Rheumatoid ArthritisThe rapeutic Drug MonitoringPa in in joint involving shoulder region 4 María Denis. [facility] [address], [place], [address], [place]. tel:[phone] Specialist: Tim Carrasquillo, [facility] [address] [place] [address] [address], [place], [address]. tel:[phone]: Adeel Tang, [facility] [address], [place], [address]. tel:[phone] Office/Outpa tient Visit, Est [facility] , [address], [place], [address], [place] tel:[phone] [facility] , Rheumatoid Arthritis (chief complaint) Rheumatoid ArthritisThe rapeutic Drug MonitoringLO NG-TERM (CURRENT) USE OF STEROIDS 3 María Denis. [facility] [address], [place], [address], [place]. tel:[phone] Specialist: Tim Carrasquillo, [facility] [address], [place], [address]. tel:[phone] Provider: Adeel Tang, [facility] [address], [place], [address]. tel:[phone] Office/Outpa tient Visit, Est [facility] , [address], [place], [address], [place] tel:[phone] [facility] , Rheumatoid Arthritis (chief complaint) Rheumatoid ArthritisThe rapeutic Drug MonitoringLO NG-TERM (CURRENT) USE OF STEROIDSCoug h 3 María Adeel. [facility] [address], [place], [address], [place]. tel:[phone] Specialist: Tim Carrasquillo [facility] [address] [place] [address] [address], [place], [address]. tel:[phone] ring Provider: Adeel Tang, [facility] [address], [place], [address]. tel:[phone] Office/Outpa tient Visit, Est [facility] , [address], [place], [address], [place] tel:[phone] [facility] , Rheumatoid Arthritis (chief complaint) Rheumatoid ArthritisThe rapeutic Drug MonitoringLO NG-TERM (CURRENT) USE OF STEROIDS 3 María Denis. [facility] [address], [place], [address], [place]. tel:[phone] Specialist: Tim Carrasquillo, [facility] [address] [place] [address] [address], [place], [address]. tel:[phone] ring Provider: Adeel Tang, [facility] [address], [place], [address]. tel:[phone] Office/Outpa tient Visit, Est [facility] , [address], [place], [address], [place] tel:[phone] [facility] , Rheumatoid Arthritis (chief complaint) Rheumatoid ArthritisThe rapeutic Drug MonitoringUl cer of ankle 3 María Denis. [facility] [address], [place], [address], [place]. tel:[phone] Specialist: Tim Carrasquillo, [facility] [address] [place] [address] [address], [place], [address]. tel:[phone] ring Provider: Adeel Tang, [facility] [address], [place], [address]. tel:[phone] Office/Outpa tient Visit, Est [facility] , [address], [place], [address], [place] tel:[phone] [facility] , Rheumatoid Arthritis (chief complaint) Rheumatoid ArthritisThe rapeutic Drug MonitoringLO NG-TERM (CURRENT) USE OF STEROIDS Dec-0 7-201 2 María Adeel. [facility] [address], [place], [address], [place]. tel:[phone] Specialist: Tim Carrasquillo, [facility] [address] [place] [address] [address], [place], [address]. tel:[phone] ring Provider: Adeel Tang, [facility] [address], [place], [address]. tel:[phone] Office/Outpa tient Visit, Est [facility] , [address], [place], [address], [place] tel:[phone] [facility] , Rheumatoid Arthritis (chief complaint) Rheumatoid ArthritisLON G-TERM (CURRENT) USE OF STEROIDS Nov-0 2-201 2 María Adeel. [facility] [address], [place], [address], [place]. tel:[phone] Specialist: Tim Carrasquillo, [facility] [address] [place] [address] [address], [place], [address]. tel:[phone] ring Provider: Adeel Tang, [facility] [address], [place], [address]. tel:[phone] Office/Outpa tient Visit, New [facility] , [address], [place], [address], [place] tel:[phone] [facility] , Pulmonary infiltrates (chief complaint) Unspecified inflammatory polyarthropa thyLONG-TERM (CURRENT) USE OF STEROIDS 2 María Denis. [facility] [address], [place], [address], [place]. tel:[phone] Specialist: Tim Carrasquillo, [facility] [address], [place], [address]. tel:[phone] ring Provider: Adeel Tang, [facility] [address], [place], [address]. tel:[phone] Family History Family Member Type Diagnosis Age At Onset Sister Problem (finding) malignant neoplasm of o vary Father Problem (finding) cancer of colon Immunizations Vaccine Date Status Comments COVID-19 coin4ce administered S ource: Other Provider Payers Payer name Insurance type Covered democrat ID Authorgregga ken(s) [facility] [id number] Social History Type Description Quantity Date Captured [...] safety monitoring ophthalmologic evaluation. Related to Other ad terminal makeup operator (current) drug therapy Continue hydroxychlo roquine 400 [...] safety monitoring ophthalmologic evaluation. Related to Other care home (current) drug therapy Continue hydroxychlo roquine [...] safety monitoring ophthalmologic evaluation. Related to Other care home (current) drug therapy Continue input as ne [...] safety monitoring ophthalmologic evaluation. Related to Other care home (current) drug therapy Continue input as ne [...] performed every 3 months. Related to Other care home (current) drug therapy Continue input as ne eded with her primary care provider or psychologist/psychiatrist. Related to Anxiety Continue current ant i-rheumatic medications unchanged.I will consider PFT and potential update of chest imaging. 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 Related to Other care home (current) drug therapy I again urged ruel katz to update evaluation with her primary care [...] performed every 3 months. Related to Other ad terminal makeup operator (current) drug therapy I urged patient to u pdate her evaluation with her primary care provider or a psychologist/psychiatrist. Related to Anxiety Continue current ant i-rheumatic medications unchanged.I will strongly consider PFT and potential update of chest imaging.The patient may be moving to [facility] if her gets the new job that they anticipate. 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 Related to Other care home (current) drug therapy Continue current ant i-rheumatic medications unchanged.The patient may be moving to [facility] if her gets the new job that they anticipate. 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 Related to Other care home (current) drug therapy I encouraged the pat ient to pursue therapy to the shoulder, which she prefers to do initially through her chiropractor, perhaps with deep tissue massage. Related to Pain in right shoulder Continue current ant i-rheumatic medications unchanged. 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 Related to Other care home (current) drug therapy Continue current ant i-rheumatic medications unchanged, except option to decrease prednisone from 5 milligrams to 4 milligrams per day.We will consider left knee joint corticosteroid injection. 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 Related to Other care home (current) drug therapy After discussion of potential treatment options, risks and benefits, the patient and I are in agreement with pursuing local corticosteroid injection. Related to Shoulder joint pain The patient will hav e CBC, Cr, transaminases and albumin performed every 2-3 months. Related to Other care home (current) drug therapy Continue current ant i-rheumatic [...]
== END 2023-08-08 08:34 | disposition home or self-care (01) ==
LOC: WOUND 08:33
PROVIDERS: PCP Family Medicine; Visit Provider Nurse Practitioner Family
DX: M06.9 Rheumatoid arthritis, unspecified (principal); Z79.60 Long term (current) use of unspecified immunomodulators and immunosuppressants; L97.815 Non-pressure chronic ulcer of other part of right lower leg with muscle involvement without evidence of necrosis
CPT/HCPCS: 97602

== ENCOUNTER 2023-08-16 11:15 | Outpatient (CLI) | payer BC, SELFPAY ==
--- OUTSIDE RECORDS SUMMARY | 2023-08-16 11:17 | XMS_ITS | Continuity of Care Document ---
Author Name Unknown Organization [facility] Address [address] [address] [place] [address] Phone Care Team Providers Care Outbound Sales Professional Name Role Phone Sarah Rowan DO Unavailable [...] [facility] , [address], [place], [address], [place] tel:[phone] [facility] , No Information 3 Skemp Pearl Sarah. [address], [place], [address], [place]. tel:[phone] [facility] , [address], [place], [address], [place] tel:[phone] [facility] , No Information 3 Skemp Pearl Sarah. [address], [place], [address], [place]. tel:[phone] [facility] , [address], [place], [address], [place] tel:[phone] [facility] No Information 3 Valentina Quintero. [address], [address], [place], [address], [place]. tel:[phone] [facility] , [address], [place], [address], [place] tel:[phone] [facility] , No Information 3 Skemp Pearl Sarah. [address], [place], [address], [place]. tel:[phone] Office/Outpa tient Visit, Est [facility] , [address], [place], [address], [place] tel:[phone] [facility] , Rheumatoid arthritis (chief complaint)Mo nitor Chronic High Risk Meds (chief complaint) RA w/ rheumatoid factor of multiple sites w/o organ involvementO ther tank terminal gauger (current) drug therapyOther dorsalgia 3 María Denis. [facility] [address], [place], [address], [place]. tel:[phone] , [facility] [address], [place], [address].Refer ring Provider: Adeel Daniel W, [facility] [address], [place], [address]. tel:[phone] [facility] , [address], [place], [address], [place] tel:[phone] [facility] No Information 2 María Denis. [facility] [address], [place], [address], [place]. tel:[phone] [facility] , [address], [place], [address], [place] tel:[phone] [facility] No Information 2 María Denis. [facility] [address], [place], [address], [place]. tel:[phone] [facility] , [address], [place], [address], [place] tel:[phone] [facility] , No Information 2 María Denis. [facility] [address], [place], [address], [place]. tel:[phone] Office/Outpa tient Visit, Est [facility] , [address], [place], [address], [place] tel:[phone] [facility] , Rheumatoid arthritis (chief complaint)Mo nitor Chronic High Risk Meds (chief complaint) RA w/ rheumatoid factor of multiple sites w/o organ involvementO ther fdc (current) drug therapy 2 María Denis. [facility] [address], [place], [address], [place]. tel:[phone] , [facility] [address], [place], [address].Refer ring Provider: Adeel Tang, [facility] [address], [place], [address]. tel:[phone] [facility] , [address], [place], [address], [place] tel:[phone] [facility] , No Information 2 María Denis. [facility] [address], [place], [address], [place]. tel:[phone] Referring Provider: Adeel Tang, [facility] [address], [place], [address]. tel:[phone] Office/Outpa tient Visit, Est [facility] , [address], [place], [address], [place] tel:[phone] [facility] , Rheumatoid arthritis (chief complaint)Mo nitor Chronic High Risk Meds (chief complaint) RA w/ rheumatoid factor of multiple sites w/o organ involvementO ther fdc (current) drug therapy 1 María Denis. [facility] [address], [place], [address], [place]. tel:[phone] , [facility] [address], [place], [address].Refer ring Provider: Adeel Tang, [facility] [address], [place], [address]. [phone] Office/Outpa tient Visit, Est [facility] , [address], [place], [address], [place] tel:[phone] [facility] , Rheumatoid arthritis (chief complaint)Mo nitor Chronic High Risk Meds (chief complaint) AnxietyRA w/ rheumatoid factor of multiple sites w/o organ involvementO ther tank terminal gauger (current) drug therapy 0 María Denis. [facility] [address], [place], [address], [place]. tel:[phone] , [address], [place], [address].Refer ring Provider: Adeel Tang, [facility] [address], [place], [address]. [phone] Office/Outpa tient Visit, Est [facility] , [address], [place], [address], [place] tel:[phone] [facility] , Rheumatoid arthritis (chief complaint)Mo nitor Chronic High Risk Meds (chief complaint) AnxietyRA w/ rheumatoid factor of multiple sites w/o organ involvementO ther fdc (current) drug therapy 0 María Denis. [facility] [address], [place], [address], [place]. tel:[phone] , [facility] [address] [place] [address] [address], [place], [address].Refer ring Provider: Adeel Tang, [facility] [address], [place], [address]. tel:[phone] Office/Outpa tient Visit, Est [facility] , [address], [place], [address], [place] tel:[phone] [facility] , Rheumatoid arthritis (chief complaint)Mo nitor Chronic High Risk Meds (chief complaint) AnxietyRA w/ rheumatoid factor of multiple sites w/o organ involvementO ther tank terminal gauger (current) drug therapy 8 9 María Denis. [facility] [address], [place], [address], [place]. tel:[phone] , [facility] [address] [place] [address] [address], [place], [address].Refer ring Provider: Adeel Tang, [facility] [address], [place], [address]. tel:[phone] Office/Outpa tient Visit, Est [facility] , [address], [place], [address], [place] tel:[phone] [facility] , Rheumatoid arthritis (chief complaint)Mo nitor Chronic High Risk Meds (chief complaint) AnxietyRA w/ rheumatoid factor of multiple sites w/o organ involvementO ther fdc (current) drug therapy 8 María Denis. [facility] [address], [place], [address], [place]. tel:[phone] , [facility] [address] [place] [address] [address], [place], [address].Refer ring Provider: Adeel Tang, [facility] [address], [place], [address]. tel:[phone] Office/Outpa tient Visit, Est [facility] , [address], [place], [address], [place] tel:[phone] [facility] , Rheumatoid arthritis (chief complaint)Mo nitor Chronic High Risk Meds (chief complaint) RA w/ rheumatoid factor of multiple sites w/o organ involvementO ther fdc (current) drug therapyAnxie ty 201 8 María Denis. [facility] [address], [place], [address], [place]. tel:[phone] Specialist: Tim Carrasquillo, [facility] [address] [place] [address] [address], [place], [address]. tel:[phone] ring Provider: Adeel Tang, [facility] [address], [place], [address]. tel:[phone] Office/Outpa tient Visit, Est [facility] , [address], [place], [address], [place] tel:[phone] [facility] , Rheumatoid arthritis (chief complaint)Mo nitor Chronic High Risk Meds (chief complaint) RA w/ rheumatoid factor of multiple sites w/o organ involvementO ther tank terminal gauger (current) drug therapy 7 María Denis. [facility] [address], [place], [address], [place]. tel:[phone] Specialist: Tim Carrasquillo, [facility] [address] [place] [address] [address], [place], [address]. tel:[phone] ring Provider: Adeel Tang, [facility] [address], [place], [address]. tel:[phone] [facility] , [address], [place], [address], [place] tel:[phone] [facility] , Rheumatoid arthritis (chief complaint)Mo nitor Chronic High Risk Meds (chief complaint) RA w/ rheumatoid factor of multiple sites w/o organ involvementO ther fdc (current) drug therapyPain in right shoulder 7 María Denis. [facility] [address], [place], [address], [place]. tel:[phone] Specialist: Tim Carrasquillo, [address], [place], [address]. tel:[phone] ring Provider: Adeel Tang, [facility] [address], [place], [address]. tel:[phone] Office/Outpa tient Visit, Est [facility] , [address], [place], [address], [place] tel:[phone] [facility] , Rheumatoid arthritis (chief complaint)Mo nitor Chronic High Risk Meds (chief complaint) RA w/ rheumatoid factor of multiple sites w/o organ involvementO ther fdc (current) drug therapy Feb- 6 María Denis. [facility] [address], [place], [address], [place]. tel:[phone] Specialist: Tim Carrasquillo, [address], [place], [address]. tel:[phone] ring Provider: Adeel Tang, [facility] [address], [place], [address]. tel:[phone] Office/Outpa tient Visit, Est [facility] , [address], [place], [address], [place] tel:[phone] [facility] , Rheumatoid arthritis (chief complaint)Mo nitor Chronic High Risk Meds (chief complaint) RA w/ rheumatoid factor of multiple sites w/o organ involvementO ther tank terminal gauger (current) drug therapyShoul velasquez joint pain 5 María Denis. [facility] [address], [place], [address], [place]. tel:[phone] Specialist: Tim Carrasquillo, [facility] [address] [place] [address] [address], [place], [address]. tel:[phone] ring Provider: Adeel Tang, [facility] [address], [place], [address]. tel:[phone] Office/Outpa tient Visit, Est [facility] , [address], [place], [address], [place] tel:[phone] [facility] , Rheumatoid arthritis (chief complaint)Mo nitor Chronic High Risk Meds (chief complaint) Rheumatoid arthritisThe rapeutic Drug MonitoringFi nger joint contracture 5 María Denis. [facility] [address], [place], [address], [place]. tel:[phone] Specialist: Tim Carrasquillo, [address], [place], [address]. tel:[phone] ring Provider: Adeel Tang, [facility] [address], [place], [address]. tel:[phone] Office/Outpa tient Visit, Est [facility] , [address], [place], [address], [place] tel:[phone] [facility] , Rheumatoid Arthritis (chief complaint) Rheumatoid ArthritisThe rapeutic Drug MonitoringPa in in joint involving lower leg 4 María Denis. [facility] [address], [place], [address], [place]. tel:[phone] Specialist: Tim Carrasquillo, [facility] [address], [place], [address]. tel:[phone] ring Provider: Adeel Tang, [facility] [address], [place], [address]. tel:[phone] Office/Outpa tient Visit, Est [facility] , [address], [place], [address], [place] tel:[phone] [facility] , Rheumatoid Arthritis (chief complaint) Rheumatoid ArthritisThe rapeutic Drug MonitoringPa in in joint involving lower legPain in joint involving shoulder regionUnspec ified disorder of skin and subcutaneous tissue 4 María Denis. [facility] [address], [place], [address], [place]. tel:[phone] Specialist: Tim Carrasquillo, [facility] [address] [place] [address] [address], [place], [address]. tel:[phone] ring Provider: Adeel Tang, [facility] [address], [place], [address]. tel:[phone] Office/Outpa tient Visit, Est [facility] , [address], [place], [address], [place] tel:[phone] [facility] , Rheumatoid Arthritis (chief complaint) Rheumatoid ArthritisThe rapeutic Drug MonitoringPa in in joint involving shoulder region 4 María Denis. [facility] [address], [place], [address], [place]. tel:[phone] Specialist: Tim Carrasquillo, [facility] [address] [place] [address] [address], [place], [address]. tel:[phone] Provider: Adeel Tang, [facility] [address], [place], [address]. tel:[phone] Office/Outpa tient Visit, Est [facility] , [address], [place], [address], [place] tel:[phone] [facility] , Rheumatoid Arthritis (chief complaint) Rheumatoid ArthritisThe rapeutic Drug MonitoringLO NG-TERM (CURRENT) USE OF STEROIDS 3 María Denis. [facility] [address], [place], [address], [place]. tel:[phone] Specialist: Tim Carrasquillo, [facility] [address], [place], [address]. tel:[phone] Provider: Adeel Tang, [facility] [address], [place], [address]. tel:[phone] Office/Outpa tient Visit, Est [facility] , [address], [place], [address], [place] tel:[phone] [facility] , Rheumatoid Arthritis (chief complaint) Rheumatoid ArthritisThe rapeutic Drug MonitoringLO NG-TERM (CURRENT) USE OF STEROIDSCoug h 3 María Adeel. [facility] [address], [place], [address], [place]. tel:[phone] Specialist: Tim Carrasquillo [facility] [address] [place] [address] [address], [place], [address]. tel:[phone] ring Provider: Adeel Tang, [facility] [address], [place], [address]. tel:[phone] Office/Outpa tient Visit, Est [facility] , [address], [place], [address], [place] tel:[phone] [facility] , Rheumatoid Arthritis (chief complaint) Rheumatoid ArthritisThe rapeutic Drug MonitoringLO NG-TERM (CURRENT) USE OF STEROIDS 3 María Denis. [facility] [address], [place], [address], [place]. tel:[phone] Specialist: Tim Carrasquillo, [facility] [address] [place] [address] [address], [place], [address]. tel:[phone] ring Provider: Adeel Tang, [facility] [address], [place], [address]. tel:[phone] Office/Outpa tient Visit, Est [facility] , [address], [place], [address], [place] tel:[phone] [facility] , Rheumatoid Arthritis (chief complaint) Rheumatoid ArthritisThe rapeutic Drug MonitoringUl cer of ankle 3 María Denis. [facility] [address], [place], [address], [place]. tel:[phone] Specialist: Tim Carrasquillo, [facility] [address] [place] [address] [address], [place], [address]. tel:[phone] ring Provider: Adeel Tang, [facility] [address], [place], [address]. tel:[phone] Office/Outpa tient Visit, Est [facility] , [address], [place], [address], [place] tel:[phone] [facility] , Rheumatoid Arthritis (chief complaint) Rheumatoid ArthritisThe rapeutic Drug MonitoringLO NG-TERM (CURRENT) USE OF STEROIDS Dec-0 7-201 2 María Adeel. [facility] [address], [place], [address], [place]. tel:[phone] Specialist: Tim Carrasquillo, [facility] [address] [place] [address] [address], [place], [address]. tel:[phone] ring Provider: Adeel Tang, [facility] [address], [place], [address]. tel:[phone] Office/Outpa tient Visit, Est [facility] , [address], [place], [address], [place] tel:[phone] [facility] , Rheumatoid Arthritis (chief complaint) Rheumatoid ArthritisLON G-TERM (CURRENT) USE OF STEROIDS Nov-0 2-201 2 María Adeel. [facility] [address], [place], [address], [place]. tel:[phone] Specialist: Tim Carrasquillo, [facility] [address] [place] [address] [address], [place], [address]. tel:[phone] ring Provider: Adeel Tang, [facility] [address], [place], [address]. tel:[phone] Office/Outpa tient Visit, New [facility] , [address], [place], [address], [place] tel:[phone] [facility] , Pulmonary infiltrates (chief complaint) Unspecified inflammatory polyarthropa thyLONG-TERM (CURRENT) USE OF STEROIDS 2 María Denis. [facility] [address], [place], [address], [place]. tel:[phone] Specialist: Tim Carrasquillo, [facility] [address], [place], [address]. tel:[phone] ring Provider: Adeel Tang, [facility] [address], [place], [address]. tel:[phone] Family History Family Member Type Diagnosis Age At Onset Sister Problem (finding) malignant neoplasm of o vary Father Problem (finding) cancer of colon Immunizations Vaccine Date Status Comments COVID-19 ViSSee administered S ource: Other Provider Payers Payer name Insurance type Covered constitution party ID Authorgregga ken(s) [facility] [id number] Social History Type Description Quantity Date Captured [...] safety monitoring ophthalmologic evaluation. Related to Other fdc (current) drug therapy Continue hydroxychlo roquine 400 [...] safety monitoring ophthalmologic evaluation. Related to Other fdc (current) drug therapy Continue hydroxychlo roquine 400 [...] safety monitoring ophthalmologic evaluation. Related to Other tank terminal gauger (current) drug therapy The patient will hav e CBC, Cr, transaminases and albumin performed every 3 months.Pursue annual safety monitoring ophthalmologic evaluation. Related to Other tank terminal gauger (current) drug therapy Continue input as ne [...] performed every 3 months. Related to Other fdc (current) drug therapy Continue input as ne [...] performed every 3 months. Related to Other fdc (current) drug therapy I again urged ruel [...] performed every 3 months. Related to Other tank terminal gauger (current) drug therapy I urged patient to u pdate her evaluation with her primary care provider or a psychologist/psychiatrist. Related to Anxiety Continue current ant i-rheumatic medications unchanged.I will strongly consider PFT and potential update of chest imaging.The patient may be moving to [facility] if her gets the new job that they anticipate. 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 Related to Other tank terminal gauger (current) drug therapy The patient will hav e CBC, Cr, transaminases and albumin performed every 3 months. Related to Other tank terminal gauger (current) drug therapy Continue current ant i-rheumatic medications unchanged.The patient may be moving to [facility] if her gets the new job that they anticipate. Related to RA w/ rheumatoid factor of multiple sites w/o organ involvement I encouraged the pat ient to pursue [...] performed every 3 months. Related to Other tank terminal gauger (current) drug therapy Continue current ant i-rheumatic medications unchanged, except option to decrease prednisone from 5 milligrams to 4 milligrams per day.We will consider left knee joint corticosteroid injection. 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 Related to Other tank terminal gauger (current) drug therapy After discussion of potential treatment options, risks and benefits, the patient and I are in agreement with pursuing local corticosteroid injection. Related to Shoulder joint pain The patient will hav e CBC, Cr, transaminases and albumin performed every 2-3 months. Related to Other fdc (current) drug therapy Continue current ant i-rheumatic [...]
== END 2023-08-16 11:16 | disposition home or self-care (01) ==
LOC: WOUND 11:15
PROVIDERS: PCP Family Medicine; Visit Provider Nurse Practitioner Family
DX: I87.2 Venous insufficiency (chronic) (peripheral) (principal); L97.815 Non-pressure chronic ulcer of other part of right lower leg with muscle involvement without evidence of necrosis; M06.9 Rheumatoid arthritis, unspecified; Z79.60 Long term (current) use of unspecified immunomodulators and immunosuppressants
CPT/HCPCS: 11042

== ENCOUNTER 2023-08-23 15:14 | Outpatient (CLI) | payer BC, SELFPAY | END 2023-08-23 15:15 | disposition home or self-care (01) | LOC: WOUND 15:14 | PROVIDERS: PCP Family Medicine; Visit Provider Nurse Practitioner Family | DX: I87.2 Venous insufficiency (chronic) (peripheral) (principal); L97.815 Non-pressure chronic ulcer of other part of right lower leg with muscle involvement without evidence of necrosis; M06.9 Rheumatoid arthritis, unspecified; Z79.60 Long term (current) use of unspecified immunomodulators and immunosuppressants | CPT/HCPCS: 11042 ==

== ENCOUNTER 2023-08-30 15:19 | Outpatient (CLI) | payer BC, SELFPAY | END 2023-08-30 15:20 | disposition home or self-care (01) | LOC: WOUND 15:19 | PROVIDERS: PCP Family Medicine; Visit Provider Family Medicine | DX: I87.2 Venous insufficiency (chronic) (peripheral) (principal); L97.815 Non-pressure chronic ulcer of other part of right lower leg with muscle involvement without evidence of necrosis | CPT/HCPCS: 11042 ==

== ENCOUNTER 2023-09-06 07:45 | Outpatient (CLI) | payer BC, SELFPAY | END 2023-09-06 07:46 | disposition home or self-care (01) | PROVIDERS: PCP Family Medicine; Visit Provider Physician Assistant | DX: I87.2 Venous insufficiency (chronic) (peripheral) (principal); L97.815 Non-pressure chronic ulcer of other part of right lower leg with muscle involvement without evidence of necrosis; Z79.60 Long term (current) use of unspecified immunomodulators and immunosuppressants | CPT/HCPCS: 97597 ==

== ENCOUNTER 2023-09-09 01:34 | Emergency (ER) | payer BC, SELFPAY ==
[2023-09-09 01:41] VITALS: BP 120/84; PULSE 85; RESP 16; TEMP 36.7; O2SAT 98; BMI 28.9
[2023-09-09 02:14] VITALS: TEMP 36.7
[2023-09-09] MEDS: KETOROLAC 10 MG TABLET PO (02:14)
--- NOTE | 2023-09-09 02:16 | ED_ITS ---
HPI - General Adult General Chief complaint: Laceration/Wound Stated complaint: R alarcon pain. Time Seen by Provider: 09/09/23 01:35 Source: patient Mode of arrival: ambulatory History of Present Illness HPI narrative: 63-year-old female presents the emergency department with increased pain in her right tibial area since she underwent wound debridement [facility]. She performed her 1st dressing change at home tonight and states that the pain has been bothersome since to the point where she cannot sleep. There is no fever, no increased drainage from the wound. There was no excessive bleeding. She reports that they apply topical EMLA at the time of the dressing change and also did some lidocaine injection because it was quite painful for her. She states that she has not previously been prescribed pain medication for her dressing changes. She has been dealing with this wound for over 4 months. Reports that she has been using Tylenol extra-strength 2 tablets every 4 hours with no relief from her pain. Denies trial of any NSAIDs. Wound care notes are reviewed. She is immunocompromised from rheumatoid arthritis, on chronic prednisone with methotrexate. No recent changes in her medications. No new trauma or injury, no bleeding. No numbness or tingling. Does not have access to pain medication with dressing changes. Past medical history reviewed, wound care note from 08/30 reviewed. U nfortunately there was not a new note from this week logged yet. ROS notable for no other skin, musculoskeletal, neurological or generalized changes. Related Data Home Medications Medication Instructions Recorded Confirmed folic acid 1 mg tablet 1 mg PO DAILY 11/14/22 11/17/22 hydroxychloroquine 200 mg tablet 400 mg PO DAILY 11/14/22 11/17/22 levetiracetam 500 mg tablet 500 mg PO BID 11/14/22 11/17/22 lisinopril 10 1 tab PO DAILY 11/14/22 11/17/22 mg-hydrochlorothiazide 12.5 mg tablet venlafaxine 75 mg tablet 225 mg PO Q12H 11/14/22 11/17/22 etanercept 50 mg/mL (1 mL) 50 mg subcut Q7D 11/15/22 11/17/22 subcutaneous pen injector (Enbrel SureDelfinoick) methotrexate sodium 2.5 mg tablet 25 mg PO Q7D 11/15/22 11/17/22 prednisone 5 mg tablet 5 mg PO DAILY PRN 11/15/22 11/17/22 Previous Rx's Medication Instructions Recorded amoxicillin 875 mg-potassium 1 tab PO Q12H #10 tabs 11/15/22 clavulanate 125 mg tablet Allergies Allergy/AdvReac Type Severity Reaction Status Date / Time aspirin Allergy Anaphylaxis Verified 11/17/22 13:36 [facility] Medical History Seizure ?R56.9 - Unspecified convulsions (ICD-10) Thyroid nodule ?E04.1 - Nontoxic single thyroid nodule (ICD-10) Anxiety ?F41.9 - Anxiety disorder, unspecified (ICD-10) Essential hypertension ?I10 - Essential (primary) hypertension (ICD-10) Rheumatoid arthritis ?M06.9 - Rheumatoid arthritis, unspecified (ICD-10) Abscess, intratonsillar ?J36 - Peritonsillar abscess (ICD-10) Surgical History History of total knee arthroplasty ?Z96.659 - Presence of unspecified artificial knee joint (ICD-10) S/P ORIF (open reduction internal fixation) fracture ?Z98.890 - Other specified postprocedural states (ICD-10) ?Z87.81 - Personal history of (healed) traumatic fracture (ICD-10) History of section ?Z98.891 - History of uterine scar from previous surgery (ICD-10) H/O tubal ligation ?Z98.51 - Tubal ligation status (ICD-10) History of carpal tunnel release ?Z98.890 - Other specified postprocedural states (ICD-10) Social History Narrative: Lives with locally, 3 adult children. 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 Nonsmoker, beer 3-4 nights a week. No history of ETOH withdrawal. Highest level of school completed/degree received: Bachelor's degree Smoking Status: Never smoker How often do you have a drink containing alcohol: 4 or more times a week Alcohol type: beer How many standard drinks containing alcohol do you have on a typical day: 1 or 2 How often do you have six or more drinks on one occasion: Daily or almost daily AUDIT-C Alcohol total score: 8 Non-prescribed substance use: denies use Caffeine: No service: No Exam Const: Vital Signs, click to edit/add: Vital Signs - 24 hr 09/09/23 01:41 09/09/23 02:14 Temperature 98.1 F 98.1 F Pulse Rate [Pulse Oximeter] 85 Respiratory Rate 16 Blood Pressure [Ri ght Upper Arm] 120/84 Pulse Oximetry 98 Oxygen Delivery Me thod Room Air Documenting provider has reviewed patient's vital signs: yes Common normals: no apparent distress General appearance: cooperative Other: Appears well nourished, well hydrated, no signs of sepsis. No intoxication HENMT: Common normals: normocephalic Head and scalp: normocephalic Mouth: oral and palatal mucosa normal Eye: General eye: normal appearance of both eyes Resp: Common normals: normal respiratory effort Effort & inspection: able to speak in complete sentences Extremity: Other: Lower leg with Mepilex dressing covering wound. I very carefully and gently remove this and see a mature, well granulated wound consistent with prior pictures and description from 08/30. Signs of some recent debridement with excellent granulation. No odor, bleeding, unexpected drainage. It looks like there is some Medi Honey salve applied to the wound bed as well. There is no significant surrounding redness or other unexpected drainage. Dressing is reapplied. Psych: Activity/motor behavior: appropriate eye contact Mood and affect: euthymic mood Insight: insight good Judgement: judgment good Skin: Narrative: Solitary right tibial wound as described above, about 3.5 cm, round, well granulated edges. Course Course ED Course: No significant signs of wound complication or infection, increased pain since recent debridement with no access to stronger pain medication. I counseled patient that I really do not see signs of infection I do not think that she needs antibiotics at this time. We discussed a plan for wound care. She would like to be able to drive herself home as it is the middle of the night. I will give her a small supply of oxycodone from [employer]. She will take 1 tablet when she gets home. She will also be given 1 tablet of Toradol 10 mg p.o. x1 here prior to leaving the ED. I discussed that she may take another dose in 6 hours but she should be weaned off of the oxycodone within the next 24-36 hours. She may then use the medication for her next dressing change, premedicating about 45 minutes prior to the dressing change. Continued use of Tylenol 1000 mg no more often than every 6 hours for her pain. Based on methotrexate use, she really should consider a max of 3000 mg per day. Keep her appointment on Tuesday with the wound care team. We extensively discussed the signs and symptoms of infection, fever, drainage, increased redness, any of those things would warrant a call to primary care provider, wound clinic or back to the ED. she verbalizes understanding and agreement and is appreciative of plan. Vital Signs Vital signs: Initial Vital Signs Temperature 98.1 F 09/09/23 01:41 Temperature Source Temporal Artery Scan 09/09/23 01:41 Pulse Rate 85 09/09/23 01:41 Respiratory Rate 16 09/09/23 01:41 Blood Pressure 120/84 09/09/23 01:41 Blood Pressure Mean 96 09/09/23 01:41 Blood Pressure Position Sitting 09/09/23 01:41 Pulse Oximetry 98 09/09/23 01:41 Oxygen Delivery Method Room Air 09/09/23 01:41 Vital Signs Temperature 98.1 F 09/09/23 01:41 Pulse Rate 85 09/09/23 01:41 Respiratory Rate 16 09/09/23 01:41 Blood Pressure 120/84 09/09/23 01:41 Pulse Oximetry 98 09/09/23 01:41 Oxygen Delivery Method Room Air 09/09/23 01:41 Temperature 98.1 F 09/09/23 02:14 Pulse Rate 85 09/09/23 01:41 Respiratory Rate 16 09/09/23 01:41 Blood Pressure 120/84 09/09/23 01:41 Pulse Oximetry 98 09/09/23 01:41 Oxygen Delivery Method Room Air 09/09/23 01:41 Medications Administered Medications: Generic Name Dose Route Start Last Admin Trade Name Freq PRN Reason Stop Dose Admin Ketorolac Tromethamine 10 mg 09/09/23 02:05 09/09/23 02:14 Ketorolac 10 Mg Tablet PO 09/09/23 02:06 10 mg ONCE ONE Administration Discharge Plan Discharge Clinical Impression: Pain associated with wound Patient Disposition: Home, Self-Care Condition: Stable Activity Level: Activity as Tolerated Discharge Diet: Regular Prescriptions: No Action folic acid 1 mg tablet 1 mg PO DAILY levetiracetam 500 mg tablet 500 mg PO BID hydroxychloroquine 200 mg tablet 400 mg PO DAILY venlafaxine 75 mg tablet 225 mg PO Q12H lisinopril-hydrochlorothiazide 10-12.5 mg tablet 1 tab PO DAILY Enbrel SureClick 50 mg/mL (1 mL) pen injector 50 mg subcut Q7D Rx Instructions: WEEKLY methotrexate sodium 2.5 mg tablet 25 mg PO Q7D Rx Instructions: WEEKLY prednisone 5 mg tablet 5 mg PO DAILY PRN Rx Instructions: PRN RA FLARES amoxicillin-pot clavulanate 875-125 mg tablet 1 tab PO Q12H Qty: 10 0RF
[2023-09-09 02:35] VITALS: BP 118/74; PULSE 85; RESP 16; TEMP 36.7; O2SAT 98
[2023-09-09 02:36] VITALS: BP 118/74; PULSE 85; RESP 16; TEMP 36.7
== END 2023-09-09 02:37 | disposition home or self-care (01) ==
PROVIDERS: Emergency Provider Family Medicine; PCP Family Medicine
DX: L97.815 Non-pressure chronic ulcer of other part of right lower leg with muscle involvement without evidence of necrosis (principal)
CPT/HCPCS: 99283; A9270

== ENCOUNTER 2023-09-13 13:43 | Outpatient (CLI) | payer BC, SELFPAY | END 2023-09-13 13:44 | disposition home or self-care (01) | LOC: WOUND 13:43 | PROVIDERS: PCP Family Medicine; Visit Provider Nurse Practitioner Family | DX: I87.2 Venous insufficiency (chronic) (peripheral) (principal); L97.815 Non-pressure chronic ulcer of other part of right lower leg with muscle involvement without evidence of necrosis; F41.9 Anxiety disorder, unspecified; M06.9 Rheumatoid arthritis, unspecified; Z79.60 Long term (current) use of unspecified immunomodulators and immunosuppressants | CPT/HCPCS: 11042; 87070; 87186; G0463 ==

== ENCOUNTER 2023-09-21 15:02 | Outpatient (CLI) | payer BC, SELFPAY ==
--- OUTSIDE RECORDS SUMMARY | 2023-09-21 15:05 | XMS_ITS | Clinical Summary ---
Author Name Unknown [facility] Address [address] [address] Phone Care Team Providers Care Bulk Plant Manager Name Role Phone Unavailable Primary Care Provider Unavailabl e Allergies Active Allergy Reactions Criticality Noted Date Comments Aspirin Anaphylaxis,Swelling High 01/03/2001 Medications No known medications Social History Tobacco Use Types Packs/Day Years Used Date Smoking Tobacco: Never Assessed Sex and Gender Information Value Date Recorded Sex Assigned at Not on file Gender Identity Not on file Sexual Orientation Not on file Job Start Date Occupation Industry Not on file Not on file Not on file Last Filed Vital Signs Vital Sign Reading Time Taken Comments Blood Pressure 162/101 01/12/2023 3:20 AM CDT Pulse 104 01/12/2023 3:20 AM CDT Temperature 36.8 ??C (98.2 ??F) 01/12/2023 1:40 AM CD T Respiratory Rate 13 01/12/2023 3:20 AM CDT Oxygen Saturation 96% 01/12/2023 3:15 AM CDT Inhaled Oxygen Concentration - - Weight 86.2 kg (190 lb) 01/12/2023 1:40 AM CDT Height 172.7 cm (5' 8) 01/12/2023 1:40 AM CDT Body Mass Index 28.89 01/12/2023 1:40 AM CDT Plan of Treatment Health Maintenance Due Date Last Done Comments CT Colonography 1961 Cervical Cancer Screening 1961 Cologuard 1961 Colonoscopy 1961 Colorectal Cancer Screening 1961 FIT/FOBT 1961 Last pap w/ HPV Testing 1961 Last pap w/o HPV Testing 1961 MAMMO,SCREEN 1961 Sigmoidoscopy 1961 COVID-19 Vaccine (#1) 02/12/1962 PERTUSSIS (Standing Order) 1980 TETANUS (Standing Order) 1980 Shingrix (Zoster recombinant ) vaccine (Standing Order) (1 of 2) 2011 RSV Vaccination (60+ yrs) (Abrysvo/Arexvy) (1 - 1-dose 60+ series) 2021 Influenza Vaccine Seasonal (Standing Order) (#1) 2023 HPV Vaccine (Standing Order) Aged Out No longer eligible based on patient's age to complete this topic Hepatitis B Vaccine (Standin g Order) Aged Out No longer eligible b ased on patient's age to complete this topic Pneumococcal/PCV20 Vaccine: Pediatrics (2-5 yrs) and At-Risk Patients (6-64 yrs) (Standing Order) Aged Out No longer eligible b ased on patient's age to complete this topic
--- OUTSIDE RECORDS SUMMARY | 2023-09-21 15:05 | XMS_ITS | Clinical Summary ---
Author Name Unknown Organization [facility] Address [place], [place] [address] Care Team Providers Care Parish Visitor Name Role Phone Case Gao MD Primary Care Provider Allergies Active Allergy Reactions Criticality Noted Date Comments Aspirin Edema 11/26/2006 Medications Medication Sig Dispensed Refills Start Date End Date Status folic acid 1 mg tabletIndications:R heumatoid arthritis(714.0) TAKE 1 TABLET DAILY 90 tablet 3 02/11/2016 Active etanercept (EnbreL SureClick) 50 mg/mL (1 mL) pen injector Inject 50 mg subcutaneous every Tuesday. 0 Active methotrexate (RHEUMATREX) 2.5 mg tablet Take 25 mg by mouth every Tuesday. 0 Active hydrOXYchloroQUINE (PlaqueniL) 200 mg tablet Take 400 mg by mouth once daily. 0 Active oxyCODONE (ROXICODONE) 5 mg immediate release tabletIndications:H ip pain, left Take 1 Tablet (5 mg) by mouth every 6 hours if needed for Pain. 20 Tablet 0 03/21/2023 Active levETIRAcetam (KEPPRA) 500 mg tabletIndications:A ltered mental status, unspecified altered mental status type TAKE 2 TABLETS TWICE A DAY 360 Tablet 3 04/22/2023 Active lisinopril-hydrochl orothiazide (10-12.5 mg) tablet (PRINZIDE; ZESTORETIC)Indicati ons:Essential hypertension TAKE 1 TABLET BY MOUTH EVERY DAY 90 Tablet 2 04/25/2023 Active venlafaxine (EFFEXOR) 75 mg tabletIndications:D epression, unspecified depression type TAKE 3 TABLETS TWICE A DAY 540 Tablet 0 07/19/2023 Active Active Problems Problem Noted Date Diagnosed Date Seizure (HC) Diagnosed 02/2022. 01/19/2023 Breakthrough seizure 01/202301/19/2023 Seropositive rheumatoid arthritis of multiple si yuliya 09/23/2022 AMS (altered mental status) 02/26/2022 Attention deficit hyperactiv ity disorder (ADHD), combined type 01/24/2020 Skin cancer 04/19/2017 Overview: 04/14/2017 Left Lateral Cheek, SCCIS, Mohs 09/12/2017 [place] 05/23/18 RIGHT SHOULDER, BCC, ED & C done 07/13/18 05/23/18 LEFT MEDIAL CALF, BCC ED & C done 07/13/18 Vitamin D deficiency 09/19/2014 Impaired fasting glucose 09/27/2013 Family history of malignant neoplasm of gastrointestinal tract 09/21/2013 Overview: Colonoscopy 09/2013 normal repeat in 5 years Unspecified essential hypertension 08/22/2013 Varicose veins of lower extr emities with ulcer and inflammation 11/23/2012 Rheumatoid arthritis(714.0) 07/28/2012 Goiter, unspecified 07/28/2012 Iron deficiency anemia, unspecified 06/24/2012 Mood Disorder, NOS; cyclothy no, Bipolar II Affective Disorder traits 10/14/2008 ANXIETY DISORDER, NOS Rule o ut Panic Disorder without Agoraphobia, OCD, and LISSETTE 04/02/2008 Obesity, unspecified 04/02/2008 Carpal tunnel syndrome 11/26/2006 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 10/14/2008 01/27/2021 Obesity, unspecified 11/26/2006 014 Encounters Date Type Department Care Team Description 07/18/2023 Refill [facility] [address] [place] [address] Case Gao MD Refill Request (venlafaxine (EFFEXOR) 75 mg tablet/) 07/15/2023 Telephone [facility] [address] [place] [address] Case Gao MD Medication Management (venlafaxine (EFFEXOR) 75 mg tablet) 07/11/2023 8:00 AM HEAT REGULATOR Office Visit [facility] [address] [place] [address] Case Gao MD Leg Pain/problem (Right lower leg wound, hit on wood wishing well, 2 weeks ago) 07/11/2023 Refill [facility] [address] [place] [address] Case Gao MD Refill Request (Venlafaxine) 07/11/2023 Telephone [facility] [address] [place] [address] 1, [facility] Anticoagulation (BPA trigger) 07/11/2023 Travel from Last 3 Months Immunizations Name Administration Dates Next Due AMB Influenza, IIV4 PF (=>6 mos Flulaval,Fluzone Fluarix)(Flu Clinic Only) 06/14/2019,05/24/2018,06/11/2017,2015,06/13/2014 COVID-19 vaccine (Moderna 100mcg/0.5mL) PF, MDV 10/24/2020,09/26/2020 Influenza, IIV3 (Age >=3 years) 06/19/2013,07/21,07/01/2011 Influenza, IIV4 06/19/2015 Influenza, IIV4 (=>6mos) MDV 06/24/2020 Pneumococcal conj 13-Valent (Prevnar 13) 07/04/2014 Td (Age >=7 Years) 09/05/1999 Tdap 06/28/2017,08/03/2011 Family History Medical History Relation Name Comments Cancer-colon Father at 49 Cancer-breast Neg. 1 Cancer-ovarian Neg. 2 Diabetes Neg. 3 Heart Disease Neg. 4 Anesthesia Problem No Family History Relation Name Status Comments Father Neg. 1 Neg. 2 Neg. 3 Neg. 4 Social History Tobacco Use Types Packs/Day Years Used Date Smoking Tobacco: Never Smokeless Tobacco: Never Tobacco Cessation:Counseling Given: No Alcohol Use Standard Drinks/Week Comments Yes 10 (1 standard drink = 0.6 oz pu re alcohol) 2 beers nightly PHQ-2 Answer Date Recorded PHQ-2 TOTAL SCORE 0 03/21/2023 Social Connections Answer Date Recorded Frequency of Communication with Friends and Fami ly Not on file 09/05/2021 Financial Resource Strain Answer Date R ecorded Difficulty of Paying Living Expenses Not on file 09/05/2021 Difficulty of Paying Living Expenses Not on file 09/05/2021 Sex and Gender Information Value Date Recorded Sex Assigned at Not on file Gender Identity Not on file Sexual Orientation Not on file Obstetrics History Last Filed Vital Signs Vital Sign Reading Time Taken Comments Blood Pressure 111/73 07/11/2023 7:54 AM HEAT REGULATOR Pulse 89 07/11/2023 7:54 AM HEAT REGULATOR Temperature 36.7 ??C (98.1 ??F) 04/13/2023 7:48 AM CD T Respiratory Rate 16 02/27/2022 11:58 AM CDT Oxygen Saturation 97% 07/11/2023 7:54 AM HEAT REGULATOR Inhaled Oxygen Concentration - - Weight 86.6 kg (191 lb) 07/11/2023 7:54 AM HEAT REGULATOR Height 169.4 cm (5' 6.69) 03/21/2023 9:18 AM CD T Body Mass Index 30.19 03/21/2023 9:18 AM CDT Plan of Treatment Health Maintenance Due Date Last Done Comments HIV for age 15-65 1976 Zoster (shingles) series for age 50+ (1 of 2) 1980 Colonoscopy through age 75 09/21/201809/21, 09/21/2013, 09/21/2013 Mammogram for age 45-75 12/05/2019 12/05/19 19, 03/31/2017, 01/28/2016, Additional history exists Fecal testing non-DNA (FIT,FOBT,iFOBT) for age 45-75 11/15/2020 11/16/2019, 08/03/2011 COVID-19 vaccine series (3 - Moderna risk series) 11/21/2020 10/24/2020, 09/26/2020 Influenza for age 50-64 05/06/2023 06/24/20 20, 06/14/2019, 05/24/2018, Additional history exists Pap test for age 21-65 12/26/2023 9, 12/25/2018, 09/19/2014, Additional history exists BMI (ht and wt on same day) for age 18+ 03/21/2024 03/21/2023, 01/06/2023, 03/23/2022, Additional history exists Depression screening for age 12+ 03/22/2024 03/22/2023, 03/21/2023, 03/23/2022, Additional history exists Lipids for age 45-75 11/14/2025 11/14/2020, 10/23/2019, 11/29/2018, Additional history exists Tetanus booster 06/28/2027 06/28/2017, 07/07, 09/05/1999 Pneumococcal series for age 6-64 Aged Out 07/04/2014 No longer eligible based on patient's age to complete this topic Hepatitis C screening for age 18-79 Completed 03/31/2017 Tdap Completed 06/28/2017, 08/03/2011 Advance Directives Latest Code Status on File Code Status Date Activated Date Inactivated Comments Full Code 02/26/2022 3:57 AM 02/27/2022 3:25 PM Question Answer Comments Code Status Discussion: Reviewed Preferences Code Status History Code Status Date Activated Date Inactivated Comments Full Code 06/23/2012 5:55 PM 06/24/2012 4:41 PM Care Teams Parish Visitor Relationship Specialty Start Date End Date Case Gao MD [address] [place] [address] PCP - General 11/28/06
--- OUTSIDE RECORDS SUMMARY | 2023-09-21 15:05 | XMS_ITS | Referral Summary ---
Author Name Unknown Organization [facility] Address [address] [place] [id number] Care Team Providers Care Finish Saw Operator Name Role Phone Case Gao Primary Care Provider [phone] Allergies Active Allergy Reactions Criticality Noted Date Comments Aspirin Anaphylaxis High 01/25/2021 Medications Medication Sig Dispensed Refills Start Date End Date Status predniSONE (DELTASONE) 5 MG tablet Take 1 tablet by mouth as needed 0 Active methotrexate 2.5 MG tablet Take 10 tablets by mouth every 7 days Wednesdays (10 x 2.5 mg = 25 mg) 0 Active etanercept (ENBREL) 50 MG/ML injection Inject 50 mg Subcutaneous once a week Wednesdays 0 Active folic acid (FOLVITE) 1 MG tablet Take 1 mg by mouth daily 0 Active hydroxychloroquine (PLAQUENIL) 200 MG tablet Take 2 tablets by mouth every morning (2 x 200 mg = 400 mg) 0 Active lisinopril-hydrochl orothiazide (ZESTORETIC) 10-12.5 MG tablet Take 1 tablet by mouth daily 0 Active venlafaxine (EFFEXOR) 75 MG tablet Take 3 tablets by mouth 2 times daily (3 x 75 mg = 225 mg) 0 Active levETIRAcetam (KEPPRA) 500 MG tablet Take 2 tablets by mouth 2 times daily (2 x 500 mg = 1,000 mg) 0 Active hydrOXYzine (ATARAX) 25 MG tabletIndications:S tatus post total hip replacement, left Take 1 tablet (25 mg) by mouth every 6 hours as needed for itching or anxiety (with pain, moderate pain) 337.5 tablet 0 03/25/2023 Active acetaminophen (TYLENOL) 325 MG tabletIndications:P eriprosthetic hip fracture, initial encounter Take 3 tablets (975 mg) by mouth every 8 hours as needed for mild pain 60 tablet 0 04/10/2023 Active HYDROmorphone (DILAUDID) 2 MG tabletIndications:P eriprosthetic hip fracture, initial encounter Take 1 tablet (2 mg) by mouth every 3 hours as needed for severe pain 20 tablet 0 04/10/2023 Active senna-docusate (SENOKOT-S/PERICOLA CE) 8.6-50 MG tabletIndications:P eriprosthetic hip fracture, initial encounter Take 1 tablet by mouth 2 times daily as needed for constipation 0 04/11/2023 Active warfarin ANTICOAGULANT (COUMADIN) 2.5 MG tabletIndications:S tatus post hip replacement, unspecified laterality Take 5 mg daily on 04/12 and 04/13 and then check INR for further dosing 20 tablet 0 04/12/2023 Active Active Problems Problem Noted Date Diagnosed Date Periprosthetic hip fracture, initial encounter 0 04/07/2023 S/P hip replacement 03/25/2023 Social History Tobacco Use Types Packs/Day Years Used Date Smoking Tobacco: Never Smokeless Tobacco: Never Tobacco Cessation:Counseling Given: Not Answered Alcohol Use Standard Drinks/Week Comments Yes 0 (1 standard drink = 0.6 oz pur e alcohol) 2 beers nightly AUDIT-C Answer Date Recorded Q1: How often do you have a drink containing alc ohol? Never 01/25/2021 Average Number of Drinks Not on file 021 Frequency of Binge Drinking Not on file 01/04 Adolescent Education Answer Date Record ed Getting School Help Needed Not on file 05/27 Sex and Gender Information Value Date Recorded Sex Assigned at Not on file Gender Identity Not on file Sexual Orientation Not on file Last Filed Vital Signs Vital Sign Reading Time Taken Comments Blood Pressure 118/44 04/12/2023 7:41 AM CDT Pulse 94 04/12/2023 7:41 AM CDT Temperature 36.3 ??C (97.3 ??F) 04/12/2023 7:41 AM CD T Respiratory Rate 12 04/12/2023 7:41 AM CDT Oxygen Saturation 100% 04/12/2023 7:41 AM CDT Inhaled Oxygen Concentration - - Weight 83.5 kg (184 lb 1.4 oz) 04/07/2023 7:17 P M CDT Height 172.7 cm (5' 8) 04/07/2023 7:17 PM CDT Body Mass Index 27.99 04/07/2023 7:17 PM CDT Plan of Treatment Not on file Goals Goal Patient Goal Type Associated Problems Recent Progress Patient-Stated? Author Total Joint Replacement Hip Pathway Care Plan Total Joint Replacement Hip Pathway No [employer] Devices Implanted Type Area Hose Stripper Device Identifier Shelf Expiration Date Model / Serial / Lot Insert Actb 42mm 28mm E Hip X3 Adm Strl Lf Mdm 7236-2-848 - [id number] Implanted:Qty : 1 on 04/08/2023 by Fazal Ramirez MD at [facility] Metallic Hardware/An chor Left: Hip [employer] [id number] 10/07/2027 7236-2-84 8 / / [id number] Insert El 36mm 0deg X3 723-00-36e - [id number] Implanted:Qty : 1 on 03/25/2023 by Cj Chen MD at [facility] Total Joint Component/I nsert Left: Hip [employer] 12/24/2027 723-00-36 E / / [id number] Imp Head Femoral Strk Biolox Delta Ceramic 28mm +4mm - [id number] Implanted:Qty : 1 on 04/08/2023 by Fazal Ramirez MD at [facility] Total Joint Component/I nsert Left: Hip [employer] [id number] 10/31/2027 6570-0-22 8 / / [id number] Fibertape Cerclage, 2mm, 48 Implanted:Qty : 1 on 04/08/2023 by Fazal Ramirez MD at [facility] Left: Hip [employer] 11/03/2027 [id number] / / [id number] Explanted Type Area Hose Stripper Device Identifier Shelf Expiration Date Model / Serial / Lot Imp Head Femoral Strk Biolox Delta Ceramic 36mm +2.5mm - [id number] Implanted:Qty: 1 on 03/25/2023 by Cj Chen MD at [facility] Explanted:Qty: 1 on 04/08/2023 by Fazal Ramirez MD at [facility] Total Joint Component /Insert Left: Hip [employer] 12/07/2027 6570-0-536 / / [id number] Titanium Washer, 13.0 Mm Implanted:Qty: 3 on 01/25/2021 by jC Chen MD at [facility] Explanted:Qty: 3 on 03/25/2023 by Cj Chen MD at [facility] Left: Hip SYNTHES 419.99 24 JAN 2021 8002 Additional Health Concerns Problem Noted Date Diagnosed Date Total Joint Replacement Hip Pathway 03/15/2023 Advance Directives For more information, please contact: [phone] Latest Code Status on File Code Status Date Activated Date Inactivated Comments Full Code 04/10/2023 6:32 PM Question Answer Comments Code status determined by: Unable to dis cuss and no AD/POLST on file; continue PREVIOUSLY ORDERED code status Code Status History Code Status Date Activated Date Inactivated Comments Full Code 04/08/2023 3:20 PM 04/10/2023 6:32 PM All bas ic and advanced life-sustaining interventions are performed as appropriate Question Answer Comments Code status determined by: Unable to determine; FULL CODE until documents or legal decision maker available Full Code 04/07/2023 7:32 PM 04/08/2023 3:20 PM All bas ic and advanced life-sustaining interventions are performed as appropriate Question Answer Comments Code status determined by: Discussion with patient/ legal decision maker Full Code 04/07/2023 3:16 PM 04/07/2023 7:32 PM All bas ic and advanced life-sustaining interventions are performed as appropriate Question Answer Comments Code status determined by: Discussion with patient/ legal decision maker Full Code 03/25/2023 10:44 AM 03/26/2023 2:07 PM All basic and advanced life-sustaining interventions are performed as appropriate Question Answer Comments Code status determined by: Discussion with patient/ legal decision maker Care Teams Finish Saw Operator Relationship Specialty Start Date End Date Case Gao [address] [facility] [address] P[facility] - General Family Medicine 01/25/21
--- OUTSIDE RECORDS SUMMARY | 2023-09-21 15:05 | XMS_ITS | Encounter Summary ---
Author Name Unknown Organization [facility] Address [address] [address] Phone Care Team Providers Care Mexican Food Cook Name Role Phone Unavailable Primary Care Provider Unavailabl e Encounter Details Date Type Department Care Team (Latest Contact Info) Description 01/12/2023 Travel Social History Tobacco Use Types Packs/Day Years Used Date Smoking Tobacco: Never Assessed Sex and Gender Information Value Date Recorded Sex Assigned at Not on file Gender Identity Not on file Sexual Orientation Not on file Job Start Date Occupation Industry Not on file Not on file Not on file COVID-19 Exposure Response Date Recorded In the last 10 days, have yo u been in contact with someone who was confirmed or suspected to have Coronavirus/COVID-19? No / Unsure 01/12/2023 1:40 AM CDT documented as of this encounter Functional Status Functional Status Response Date of Assess ment Patient's Vision Adequate to Safely Complete Daily Activities Yes 01/12/2023 Patient's Memory Adequate to Safely Complete Daily Activities Yes 01/12/2023 Cognitive Status Response Date of Assessm ent Patient's Judgment Adequate to Safely Complete Daily Activities Yes 01/12/2023 documented as of this encounter Plan of Treatment Not on file documented as of this encounter Visit Diagnoses Not on filedocumented in this encounter
--- OUTSIDE RECORDS SUMMARY | 2023-09-21 15:05 | XMS_ITS | Encounter Summary ---
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 Performing Organization Address City/[facility] Co de Phone Number [facility] [address] [place] [address] * (ABNORMAL) VENOUS BLOOD GASES (01/12/2023 2:01 AM CDT) pH, Venous 7.10(LL) 7.35 - 7.45 01/12/2023 2:13 AM CDT [facility] pCO2, Venous 44 38 - 50 mmHg 01/12/2023 2:13 AM CDT [facility] Bicarbonate (HCO3), Venous 14(L) 23 - 27 mEq/L 01/12/2023 2:13 AM CDT [facility] Base Excess, Venous -16.0(L) -2.0 - 2.0 01/12/2023 2:13 AM CDT [facility] PATIENT TEMPERATURE FOR BLOOD GAS PH, PCO2, PO2 DATA CONVERSION 37.0 C 01/12/2023 2:13 AM CDT [facility] Blood BLOOD SPECIMEN / Unknown Venipuncture / Unknown 01/12/2023 2:01 AM CDT 01/12/2023 2:04 AM CDT Trent Augustine MD EC CHEMISTRY ORDERAB LES Performing Organization Address [facility] de Phone Number [facility] [address] [place] [address] * (ABNORMAL) LACTIC ACID, VENOUS (01/12/2023 2:01 AM CDT) Lactic Acid, Venous 12.6(HH) 0.5 - 2.0 mmol/L 01/12/2023 2:25 AM CDT [facility] Blood BLOOD SPECIMEN / Unknown Venipuncture / Unknown 01/12/2023 2:01 AM CDT 01/12/2023 2:04 AM CDT Trent Augustine MD EC CHEMISTRY ORDERAB LES Performing Organization Address City/[facility] Co de Phone Number [facility] [address] [place] [address] * C-REACTIVE PROTEIN (01/12/2023 2:01 AM CDT) C-Reactive Protein 0.2 0.0 - 0.8 mg/dL 01/12/2023 2:25 AM CDT [facility] Blood BLOOD SPECIMEN / Unknown Venipuncture / Unknown 01/12/2023 2:01 AM CDT 01/12/2023 2:04 AM CDT Trent Augustine MD EC CHEMISTRY ORDERAB LES [facility] [address] * (ABNORMAL) COMPREHENSIVE METABOLIC PANEL (01/12/2023 2:01 AM CDT) Pathologist [facility] Sodium 137 134 - 143 mEq/L 01/12/2023 2:25 AM CDT [facility] Potassium 4.0 3.4 - 5.1 mEq/L 01/12/2023 2:25 AM CDT [facility] Chloride 105 99 - 110 mEq/L 01/12/2023 2:25 AM CDT [facility] Carbon Dioxide 13(L) 19 - 29 mEq/L 01/12/2023 2:25 AM CDT [facility] Anion Gap 19.0(H) 3.0 - 15.0 mEq/L 01/12/2023 2:25 AM CDT [facility] Blood Urea Nitrogen 15 5 - 24 mg/dL 01/12/2023 2:25 AM CDT [facility] Creatinine 0.84 0.40 - 1.00 mg/dL 01/12/2023 2:25 AM CDT [facility] Glomerular Filtration Rate 79 >60 mL/min/1. 73 m*2 01/12/2023 2:25 AM CDT [facility] Comment:Risk of cardiovascul ar disease increases when GFR is abnormal; persistently reduced GFR values are a specific indication of CKD. This calculation uses CKD- EPI 2020 equation without adjustment for race; it has not been validated in women. Calcium 9.6 8.4 - 10.5 mg/dL 01/12/2023 2:25 AM CDT [facility] Glucose 138(H) 70 - 99 mg/dL 01/12/2023 2:25 AM CDT [facility] Protein, Total 7.6 6.0 - 8.0 g/dL 01/12/2023 2:25 AM CDT [facility] Albumin 4.2 3.5 - 5.0 g/dL 01/12/2023 2:25 AM CDT [facility] Alkaline Phosphatase 68 40 - 150 IU/L 01/12/2023 2:25 AM CDT [facility] Aspartate Aminotransferase 21 10 - 40 IU/L 01/12/2023 2:25 AM CDT [facility] Alanine Aminotransferase 18 6 - 31 IU/L 01/12/2023 2:25 AM CDT [facility] Bilirubin, Total 0.5 0.2 - 1.2 mg/dL 01/12/2023 2:25 AM CDT [facility] Blood BLOOD SPECIMEN / Unknown Venipuncture / Unknown 01/12/2023 2:01 AM CDT 01/12/2023 2:04 AM CDT Narrative [facility] - 01/12/2023 2:25 AM CDT Current ADA criteria for Glucose: ?Normal: 70-99 mg/dL ?Impaired Fasting Glucose: 100-125 mg/dL ?Diabetes Mellitus: at or above 126 mg/dL The diagnosis of diabetes must be confirmed on a subsequent day by measuring Fasting Plasma Glucose, 2-hr PG or random plasma glucose (if symptoms are present). Trent Augustine MD EC CHEMISTRY ORDERAB LES [facility] [address] * PROTIME (01/12/2023 2:01 AM CDT) INR 1.1 0.9 - 1.1 01/12/2023 2:16 AM CDT [facility] Protime 13.7 12.0 - 14.1 sec 01/12/2023 2:16 AM CDT [facility] Blood BLOOD SPECIMEN / Unknown Venipuncture / Unknown 01/12/2023 2:01 AM CDT 01/12/2023 2:04 AM CDT Narrative [facility] - 01/12/2023 2:16 AM CDT Suggested therapeutic INR ranges for oral anticoagulant therapy: Category ? INR Value Prophylaxis ?2.0-3.0 Treat Thrombosis or Embolism ? 2.0-3.0 Prosthetic Heart Valve ? 2.5-3.5 Trent Augustine MD EC HEMATOLOGY ORDERA BLES Performing Organization Address City/State/[facility] Co de Phone Number [facility] [address] [place] [address] * (ABNORMAL) HEMOGRAM/DIFFERENTIAL (01/12/2023 2:01 AM CDT) WBC 7.2 3.2 - 11.0 10*9/L 01/12/2023 2:07 AM CDT [facility] RBC 4.37 3.77 - 5.24 10*12/L 01/12/2023 2:07 AM CDT [facility] HGB 14.1 11.2 - 15.5 g/dL 01/12/2023 2:07 AM CDT [facility] HCT 42.6 34.3 - 46.0 % 01/12/2023 2:07 AM CDT [facility] MCV 97.5 81.4 - 99.0 fL 01/12/2023 2:07 AM CDT [facility] MCH 32.3 26.7 - 33.1 pg 01/12/2023 2:07 AM CDT [facility] MCHC 33.1 31.6 - 35.5 g/dL 01/12/2023 2:07 AM [facility] RDW 13.6 11.3 - 14.6 % 01/12/2023 2:07 AM [facility] PLT 218 130 - 375 10*9/L 01/12/2023 2:07 AM [facility] Neutrophils % 55.4 % 01/12/2023 2:07 AM [facility] Lymphocytes % 30.6 % 01/12/2023 2:07 AM [facility] Monocytes % 13.7 % 01/12/2023 2:07 AM [facility] Eosinophils % 0.0 % 01/12/2023 2:07 AM [facility] Basophils % 0.0 % 01/12/2023 2:07 AM [facility] Immature Granulocytes % 0.3 % 01/12/2023 2:07 AM [facility] Neutrophils Absolute 4.0 1.5 - 7.6 10*9/L 01/12/2023 2:07 AM [facility] Lymphocytes Absolute 2.2 0.8 - 3.3 10*9/L 01/12/2023 2:07 AM [facility] Monocytes Absolute 1.0(H) 0.2 - 0.9 10*9/L 01/12/2023 2:07 AM [facility] Eosinophils Absolute 0.0 0.0 - 0.4 10*9/L 01/12/2023 2:07 AM [facility] Basophils Absolute 0.0 0.0 - 0.1 10*9/L 01/12/2023 2:07 AM [facility] Immature Granulocytes Absolute 0.02 0.00 - 0.06 10*9/L 01/12/2023 2:07 AM [facility] Blood BLOOD SPECIMEN / Unknown Venipuncture / Unknown 01/12/2023 2:01 AM CDT 01/12/2023 2:04 AM CDT Trent Augustine MD EC HEMATOLOGY ORDERA BLES Performing Organization Address City/[facility]/ZIP Co de Phone Number [facility] [address] [place] [address] * MAGNESIUM (01/12/2023 2:01 AM CDT) Magnesium 2.1 1.8 - 2.7 mg/dL 01/12/2023 2:25 AM CDT [facility] Blood BLOOD SPECIMEN / Unknown Venipuncture / Unknown 01/12/2023 2:01 AM CDT 01/12/2023 2:04 AM CDT Trent Augustine MD EC CHEMISTRY ORDERAB LES Performing Organization Address [facility] Co de Phone Number [facility] [address] [place] [address] * ALCOHOL (01/12/2023 2:01 AM CDT) Alcohol <10.0 <=10.0 mg/dL 01/12/2023 2:25 AM CDT [facility] Blood BLOOD SPECIMEN / Unknown Venipuncture / Unknown 01/12/2023 2:01 AM CDT 01/12/2023 2:04 AM CDT Trent Augustine MD EC CHEMISTRY ORDERAB LES Performing Organization Address [facility] Co de Phone Number [facility] [address] [place] [address] * SALICYLATE (01/12/2023 2:01 AM CDT) Salicylate <5 <=25 mg/dL 01/12/2023 2:25 AM CDT [facility] Blood BLOOD SPECIMEN / Unknown Venipuncture / Unknown 01/12/2023 2:01 AM CDT 01/12/2023 2:04 AM CDT Trent Augustine MD EC CHEMISTRY ORDERAB LES Performing Organization Address [facility] Phone Number [facility] [address] [place] [address] * ACETAMINOPHEN (01/12/2023 2:01 AM CDT) Acetaminophen 28 <=30 ug/mL 01/12/2023 2:25 AM CDT [facility] Blood BLOOD SPECIMEN / Unknown Venipuncture / Unknown 01/12/2023 2:01 AM CDT 01/12/2023 2:04 AM CDT Narrative [facility] - 01/12/2023 2:25 AM CDT Call Poison Control Center ( ) for guidance in interpretation of results. The Yash nomogram for single, one time ingestions of acetaminophen is available in [employer]. Trent Augustine MD EC CHEMISTRY ORDERAB LES Performing Organization Address [facility] Phone Number [facility] [address] [place] [address] * Critical Care (01/12/2023 1:56 AM CDT) Narrative Trent Augustine MD - 01/12/2023 1:56 AM CDT Trent Augustine MD ? 01/12/2023 ??3:03 AM Critical Care Performed by: Trent Augustine MD Authorized by: Trent Augustine MD ?? Critical care provider statement: ??Critical care time (minutes): ??60 ??Critical care time was exclusive of: ??Separately billable procedures and treating other patients ??Critical care was necessary to treat or prevent imminent or life-threatening deterioration of the following conditions: ??[employer]ACHINE failure or compromise and respiratory failure ??Critical care was time spent personally by me on the following activities: ??Ordering and performing treatments and interventions, ordering and review of laboratory studies, ordering and review of radiographic studies, pulse oximetry, re-evaluation of patient's condition, review of old charts, vascular access procedures, ventilator management, blood draw for specimens, discussions with consultants, evaluation of patient's response to treatment, examination of patient and obtaining history from patient or surrogate ??I assumed direction of critical care for this patient from another provider in my specialty: yes ?? Trent Augustine MD NW PROCEDURE ORDERAB LES * EKG 12-LEAD (01/12/2023 1:56 AM CDT) Pathologist [facility] Ventricular Rate 141 BPM MUSE Atrial Rate 141 BPM MUSE P-R Interval 130 ms MUSE QRS Duration 86 ms MUSE QT 290 ms MUSE QTc 445 ms MUSE R [place] 29 degrees MUSE T [place] 71 degrees MUSE 01/12/2023 1:56 AM CDT Narrative MUSE - 01/12/2023 8:32 AM CDT Confirming Doc JIMMY JAQUEZ M.D. Poor data quality, interpretation may be adversely affected Sinus tachycardia Low voltage QRS Abnormal ECG No previous ECGs available Procedure Note Jimmy Jaquez MD - 01/12/2023 Confirming Doc JIMMY JAQUEZ M.D. Poor data quality, interpretation may be adversely affected Sinus tachycardia Low voltage QRS Abnormal ECG No previous ECGs available Trent Augustine MD IP ECG ORDERABLES MUSE documented in this encounter Visit Diagnoses Diagnosis Status epilepticus (HCC)- Primary Epileptic grand mal status Acute respiratory failure with hypoxia (HCC) Acute respiratory failure Lactic acidosis Acidosis documented in this encounter Administered Medications Inactive Administered Medications Medication Order MAR Action Action Date Dose Rate Site fentaNYL (Sublimaze) 5 mcg/mL in sodium chloride 0.9% infusion 0-250 mcg/hr (0-50 mL/hr), Intravenous, Titrated, Starting on Tue01/12/23 at 0235, Until Tue01/12/23 at 0751 New Bag 01/12/2023 2:53 AM CDT 50 mcg/hr 10 mL/hr fentaNYL BOLUS FROM BAG 25-50 mcg 25-50 mcg, Intravenous, EVERY 10 MIN NEEDED, Starting on Tue01/12/23 at 0229, Until Tue01/12/23 at 0751, Moderate Pain (4-6), Severe Pain (7-10) ketamine (Ketalar) 10 MG/ML injection 130 mg 130 mg (rounded from 129.3 mg = 1.5 mg/kg ? 86.2 kg), IV Push, ONCE, 1 dose, On Tue01/12/23 at 0215 Given 01/12/2023 2:25 AM CDT 130 mg levETIRAcetam (KEPPRA) 4,500 mg in sodium chloride 0.9% (NS) 250 mL IVPB 4,500 mg, Intravenous, at 590 mL/hr, ONCE, 1 dose, On Tue01/12/23 at 0215 New Bag 01/12/2023 2:23 AM CDT 4,500 mg 590 mL/hr LORazepam (Ativan) injection 2 mg 2 mg, IV Push, ONCE, 1 dose, On Tue01/12/23 at 0150 Given 01/12/2023 1:54 AM CDT 2 mg LORazepam (Ativan) injection 2 mg 2 mg, IV Push, ONCE, 1 dose, On Tue01/12/23 at 0220 Given 01/12/2023 2:17 AM CDT 2 mg LORazepam (Ativan) injection 2 mg 2 mg, IV Push, ONCE, 1 dose, On Tue01/12/23 at 0250 Given 01/12/2023 2:34 AM CDT 2 mg LORazepam (Ativan) injection 4 mg 4 mg, IV Push, ONCE, 1 dose, On Tue01/12/23 at 0205 Given 01/12/2023 2:08 AM CDT 4 mg LORazepam (Ativan) injection ADS OVERRIDE 1 dose, Starting on Tue01/12/23 at 0152, Until Tue01/12/23 at 0154 midazolam (VERSED) injection 2 mg 2 mg, IV Push, ONCE, 1 dose, On Tue01/12/23 at 0240 Given 01/12/2023 2:43 AM CDT 2 mg propofol (DIPRIVAN) 10 mg/ml BOLUS FROM BAG 20-40 mg 20-40 mg, Intravenous, SEE ADMINISTRATION INSTRUCTIONS, Starting on Tue01/12/23 at 0228, Until Tue01/12/23 at 0751, Other, to acheive RASS score propofol (Diprivan) 200 MG/20ML injection 20 mg 20 mg, IV Push, ONCE, 1 dose, On Tue01/12/23 at 0255 Given 01/12/2023 2:51 AM CDT 20 mg propofol 100 mL VIAL 10 mg/mL (Diprivan) infusion 0-80 mcg/kg/min ? 86.2 kg (0-41.376 mL/hr, rounded to 0-41.4 mL/hr), Intravenous, Titrated, Starting on Tue01/12/23 at 0235, Until Tue01/12/23 at 0751 New Bag 01/12/2023 2:46 AM CDT 80 mcg/kg/min 41.4 mL/hr sodium chloride 0.9% BOLUS BAG 1,000 mL 1,000 mL, Intravenous, at 1,000 mL/hr, ONCE, 1 dose, On Tue01/12/23 at 0205 New Bag 01/12/2023 2:14 AM CDT 1,000 mL 1000 mL/hr succinylcholine (Anectine) injection 86.2 mg 86.2 mg (1 mg/kg ? 86.2 kg), IV Push, ONCE, 1 dose, On Tue01/12/23 at 0215 Given 01/12/2023 2:26 AM CDT 86.2 mg documented in this encounter Active and Recently Administered Medications Times are shown in CDT. Scheduled Medication Order 01/10/2023 01/11/2023 01/12/2023 ketamine (Ketalar) 10 MG/ML injection 130 mg (COMPLETED) 130 mg (rounded from 129.3 mg = 1.5 mg/kg ? 86.2 kg), IV Push, ONCE, 1 dose, On Tue01/12/23 at 0215 0225 (Given - Provid er: Sandra Adler RN) levETIRAcetam (KEPPRA) 4,500 mg in sodium chloride 0.9% (NS) 250 mL IVPB (COMPLETED) 4,500 mg, Intravenous, at 590 mL/hr, ONCE, 1 dose, On Tue01/12/23 at 0215 0223 (New Bag - Prov ider: Sandra Adler RN)0303 (Stopped - Provider: Sandra Adler RN) LORazepam (Ativan) injection 2 mg (COMPLETED) 2 mg, IV Push, ONCE, 1 dose, On Tue01/12/23 at 0150 0154 (Given - Provid er: Case Tapia RN) LORazepam (Ativan) injection 2 mg (COMPLETED) 2 mg, IV Push, ONCE, 1 dose, On Tue01/12/23 at 0220 0217 (Given - Provid er: Case Tapia RN) LORazepam (Ativan) injection 2 mg (COMPLETED) 2 mg, IV Push, ONCE, 1 dose, On Tue01/12/23 at 0250 0234 (Given - Provid er: Sandra Adler RN) LORazepam (Ativan) injection 4 mg (COMPLETED) 4 mg, IV Push, ONCE, 1 dose, On Tue01/12/23 at 0205 0208 (Given - Provid er: Case Tapia RN) midazolam (VERSED) injection 2 mg (COMPLETED) 2 mg, IV Push, ONCE, 1 dose, On Tue01/12/23 at 0240 0243 (Given - Provid er: Sandra Adler RN) midazolam (VERSED) injection 2 mg 2 mg, IV Push, ONCE, 1 dose, On Tue01/12/23 at 0245 0245 (Due) propofol (Diprivan) 200 MG/20ML injection 20 mg (COMPLETED) 20 mg, IV Push, ONCE, 1 dose, On Tue01/12/23 at 0255 0251 (Given - Provid er: Sandra Adler RN) sodium chloride 0.9% BOLUS BAG 1,000 mL (COMPLETED) 1,000 mL, Intravenous, at 1,000 mL/hr, ONCE, 1 dose, On Tue01/12/23 at 0205 0214 (New Bag - Prov ider: Case Tapia RN)0324 (Stopped - Provider: Case Tapia RN) succinylcholine (Anectine) injection 86.2 mg (COMPLETED) 86.2 mg (1 mg/kg ? 86.2 kg), IV Push, ONCE, 1 dose, On Tue01/12/23 at 0215 0226 (Given - Provid er: Sandra Adler RN) Continuous Medication Order 01/10/2023 01/11/2023 01/12/2023 fentaNYL (Sublimaze) 5 mcg/mL in sodium chloride 0.9% infusion 0-250 mcg/hr (0-50 mL/hr), Intravenous, Titrated, Starting on Tue01/12/23 at 0235, Until Tue01/12/23 at 0751 0253 (New Bag - Prov ider: Sandra Adler, SRAVANI - Comment: also 50mcg bolus from bag)0325 (Continued on external transfer - Provider: Case Tapia, RN) propofol 100 mL VIAL 10 mg/mL (Diprivan) infusion 0-80 mcg/kg/min ? 86.2 kg (0-41.376 mL/hr, rounded to 0-41.4 mL/hr), Intravenous, Titrated, Starting on Tue01/12/23 at 0235, Until Tue01/12/23 at 0751 0246 (New Bag - Prov ider: Sandra Adler RN)0326 (Continued on external transfer - Provider: Case Tapia, RN) PRN Medication Order 01/10/2023 01/11/2023 01/12/2023 fentaNYL BOLUS FROM BAG 25-50 mcg 25-50 mcg, Intravenous, EVERY 10 MIN NEEDED, Starting on Tue01/12/23 at 0229, Until Tue01/12/23 at 0751, Moderate Pain (4-6), Severe Pain (7-10) propofol (DIPRIVAN) 10 mg/ml BOLUS FROM BAG 20-40 mg 20-40 mg, Intravenous, SEE ADMINISTRATION INSTRUCTIONS, Starting on Tue01/12/23 at 0228, Until Tue01/12/23 at 0751, Other, to acheive RASS score documented in this encounter Orders Medications Ordered That Javier ht Not Have Been Administered Count Last Ordered Date First Ordered Date fentaNYL BOLUS FROM BAG 25-50 mcg 1 023 midazolam (VERSED) injection 2 mg 1 023 propofol (DIPRIVAN) 10 mg/ml BOLUS FROM BAG 20-40 mg 1 01/12/2023 propofol (DIPRIVAN) 10 mg/ml BOLUS FROM BAG 22 mg 1 01/12/2023 documented in this encounter
--- OUTSIDE RECORDS SUMMARY | 2023-09-21 15:05 | XMS_ITS | Clinical Summary ---
Author Name Unknown Organization [place] Address [address] [place] [id number] Care Team Providers Care Heel Caser Name Role Phone Case Gao Primary Care Provider [phone] Allergies Active Allergy Reactions Criticality Noted Date [...] 04/07/2023 7:17 PM CDT Plan of Treatment Health Maintenance Due Date Last Done Comments ADVANCE CARE PLANNING 1960 ANNUAL REVIEW OF HM ORDERS 1961 CT COLONOGRAPHY 1961 FIT 1961 FLEX SIG 1961 MAMMO SCREENING 1961 YEARLY PREVENTIVE VISIT 1961 sDNA (Cologuard) 1961 HIV SCREENING 1976 HEPATITIS C SCREENING 1979 ZOSTER IMMUNIZATION (1 of 2) 1980 PAP 1982 LIPID 2006 Pneumococcal Vaccine: Pediatrics (0 to 5 Years) and At-Risk Patients (6 to 64 Years) (2 of 2 - PPSV23 or PCV20) 08/29/2014 07/04/2014 COVID-19 Vaccine (3 - Moderna risk series) 11/21/2020 10/24/2020, 09/26/2020 RSV VACCINE ( & 60+) (1 - 1-dose 60+ series) 2021 INFLUENZA VACCINE (#1) 2023 , 06/14/2019, 05/24/2018, Additional history exists PHQ-2 (once per calendar year) 2023 DTAP/TDAP/TD IMMUNIZATION (3 - Td or Tdap) 06/28/2027 06/28/2017, 08/03/2011, 09/05/1999 COLONOSCOPY 10/25/2032 10/25/2022 COLORECTAL CANCER SCREENING 10/25/2032 HPV IMMUNIZATION Aged Out No longer e ligible based on patient's age to complete this topic IPV IMMUNIZATION Aged Out No longer e ligible based on patient's age to complete this topic MENINGITIS IMMUNIZATION Aged Out No l onger eligible based on patient's age to complete this topic RSV MONOCLONAL ANTIBODY Aged Out No l onger eligible based on patient's age to complete this topic Goals Goal Patient Goal Type Associated Problems Recent Progress Patient-Stated? Author Total Joint Replacement Hip Pathway Care Plan Total Joint Replacement Hip Pathway No [employer] Implanted Type Area Disability Benefits Specialist Device Identifier Shelf Expiration Date Model / Serial / Lot Insert Actb 42mm 28mm E Hip X3 Adm Strl Lf Mdm 7236-2-848 - [id number] Implanted:Qty : 1 on 04/08/2023 by Fazal Ramirez MD at [facility] Metallic Hardware/An chor Left: Hip MATTHEW [employer] [id number] 10/07/2027 7236-2-84 8 / / [id number] Insert El 36mm 0deg X3 723-00-36e - [id number] Implanted:Qty : 1 on 03/25/2023 by Cj Chen MD at [facility] Total Joint Component/I nsert Left: Hip MATTHEW [employer] 12/24/2027 723-00-36 E / / [id number] Imp Head Femoral Strk Biolox Delta Ceramic 28mm +4mm - [id number] Implanted:Qty : 1 on 04/08/2023 by Fazal Ramirez MD at [facility] Total Joint Component/I nsert Left: Hip MATTHEW [employer] [id number] 10/31/2027 6570-0-22 8 / / [id number] Fibertape Cerclage, 2mm, 48 Implanted:Qty : 1 on 04/08/2023 by Fazal Ramirez MD at [facility] Left: Hip ARTHREX 11/03/2027 [id number] / / [id number] Explanted Type Area Disability Benefits Specialist Device Identifier Shelf Expiration Date Model / Serial / Lot Imp Head Femoral Strk Biolox Delta Ceramic 36mm +2.5mm - [id number] Implanted:Qty: 1 on 03/25/2023 by Cj Chen MD at [facility] Explanted:Qty: 1 on 04/08/2023 by Fazal Ramirez MD at [facility] Total Joint Component /Insert Left: Hip MATTHEW [employer] 12/07/2027 6570-0-536 / / [id number] Titanium Washer, 13.0 Mm Implanted:Qty: 3 on 01/25/2021 by Cj Chen MD at [facility] Explanted:Qty: 3 on 03/25/2023 by Cj Chen MD at [facility] Left: Hip SYNTHES 419.99 24 JAN 2021 8002 Additional Health Concerns Problem Noted Date Diagnosed Date Total Joint Replacement Hip Pathway 03/15/2023 Advance Directives For more information, please contact: [phone] Latest Code Status on File Code Status [...] with patient/ legal decision maker Care Teams Heel Caser Relationship Specialty Start Date End Date Case Gao [address] [place] [address] PCP - General Family Medicine 01/25/21
--- OUTSIDE RECORDS SUMMARY | 2023-09-21 15:06 | XMS_ITS | Encounter Summary ---
Author Name Unknown Organization [facility] Address [address] [place] [address]. [place] [address] Care Team Providers Care Track Laying Machine Operator Name Role Phone GaoCase nieves Primary Care Provider [phone] Reason for Visit * Auth/Cert (Routine) Specialty Diagnoses / Procedures Referred By Konstantin katz Referred To Contact Surgery Diagnoses Periprosthetic hip fracture, initial encounter Periprosthetic hip fracture, initial encounter Rh Preop/Postop [address] [place] [address] Referral ID Status Reason Start Date Expiration Date Visits Re quested Visits Authorized [id number] 1 1 Encounter Details Date Type Department Care Team (Late st Contact Info) Description 04/08/2023 9:52 AM CDT Anesthesia Event [facility] PeriOp Services [address] [place] [address] Hunter Philip MD [facility] ANESTHESIA [id number] [place], [place] [address] Evelyn Sanchez APRN YARDING AND FOLDING MACHINE OPERATOR [facility] [place], [place] [id number] Anesthesia Record Procedure Summary Procedure Name Responsible Anesthesiologist Anesthesia Start Time Anesthesia Stop Time LEFT TOTAL HIP ARTHROPLASTY REVISION AND OPEN REDUCTION INTERNAL FIXATION PROXIMAL FEMUR (Left: Hip) Hunter Philip MD 04/08/23 0952 04/08/23 1517 Events Date Time Event Comment 04/08/2023 0857 0913 YARDING AND FOLDING MACHINE OPERATOR Ready for Procedure 0952 An Start 0954 An Start Data 0954 AN REASSESS I attest that I have identified and re-evaluated the patient immediately before the induction of anesthesia and I am satisfied that the anesthetic plan is suitable for the patient's condition and procedure. The first vital signs recorded are pre- induction. Evelyn Sanchez APRN YARDING AND FOLDING MACHINE OPERATOR 0958 An Induction 1000 An Intubation 1001 Anesthesia Ready for Procedu re 1003 MD Present 1011 MD Present 1102 MD Present 1157 MD Present 1241 MD Present 1331 MD Present 1424 MD Present 1512 AN Extubation All extubation criteria met prior to removal. 1512 an stop data 1517 An Stop Electronically signed by Hunter Rodriguez APRN YARDING AND FOLDING MACHINE OPERATOR on April 08, 2023 3:17 PM 1517 MD Present Meds Name Total midazolam 1 mg/mL 2 mg fentaNYL 50 mcg/mL 100 mcg HYDROmorphone 1 mg/mL 2 mg propofol 10 mg/mL 300 mg rocuronium 10 mg/mL 100 mg dexamethasone (DECADRON) 4 mg/mL 8 mg ondansetron 2 mg/mL 4 mg glycopyrrolate 0.2 mg/mL 0.2 mg sugammadex (BRIDION) 200mg/2mL 200 mg ceFAZolin Sodium (ANCEF) injection 2 g 2 g ceFAZolin Sodium (ANCEF) injection 2 g 2 g tranexamic acid 1 g in 100 mL NS IV bag (premix) 1 g tranexamic acid 1 g in 100 mL NS IV bag (premix) 1 g dexmedeTOMIDine (PRECEDEX) 4 mcg/mL in s odium chloride 0.9 % 100 mL infusion 97 mcg lidocaine 1% 30 mg lactated ringers infusion 1,600 mL * Agents Name NO HELIOX O2 N2O Air Exp Sevoflurane Exp Isoflurane Exp Desflurane Exp N2O Ins Sevoflurane Ins Isoflurane Ins Desflurane O2 Auxiliary * Blood No blood administrations on file. Lines, Drains, and Airways Type Details Placement Removal Incision/Surgical Site 04/08/23; 1131; L eft; Hip 04/08/23 1131 by Aida Raymundo RN Peripheral IV 04/07/23; 1457; 20 G ; Left; Antecubital fossa 04/07/23 1457 by Evelyn Fortune RN 04/12/23 1029 by Melissa Alberto RN ETT Placement Date: 04/08/23; Placement Time: 1000 (created via procedure documentation); Mask Ventilation: 1; Induction Type: Intravenous; Ease of Intubation: Easy; Technique: Video laryngoscopy; ETT Type: Single; Tube Size: 7 mm; VL Blade Size: [place] scope 3; Grade View: 1; Placement Person: YARDING AND FOLDING MACHINE OPERATOR; Attempts: 1; Depth: 22 cm 04/08/23 1000 by Evelyn Sanchez APRN YARDING AND FOLDING MACHINE OPERATOR 04/08/23 1512 by Hunter Rodriguez APRN CRNA Urethral Catheter 04/08/23; 1455; No; 14 fr 04/08/23 1455 by Aida Raymundo, RN 04/08/23 1506 by Aida Raymundo, RN documented in this encounter Social History Tobacco Use Types Packs/Day Years Used Date Smoking Tobacco: Never Smokeless Tobacco: Never Alcohol Use Standard Drinks/Week Comments Yes 0 (1 standard drink = 0.6 oz pur e alcohol) 2 beers nightly AUDIT-C Answer Date Recorded Q1: How often do you have a drink containing alc ohol? Never 01/25/2021 Average Number of Drinks Not on file 021 Frequency of Binge Drinking Not on file 01/04 Sex and Gender Information Value Date Recorded Sex Assigned at Not on file Gender Identity Not on file Sexual Orientation Not on file COVID-19 Exposure Response Date Recorded In the last 10 days, have yo u been in contact with someone who was confirmed or suspected to have Coronavirus/COVID-19? No / Unsure 04/07/2023 12:49 PM CDT documented as of this encounter OR Notes * Anesthesia Postprocedure Evaluation - Hunter Philip MD - 04/08/2023 3:40 PM CDT Patient: Mora Galeas Procedure: Procedure(s): LEFT TOTAL HIP ARTHROPLASTY REVISION AND OPEN REDUCTION INTERNAL FIXATION PROXIMAL FEMUR Anesthesia Type: General Note: Disposition: Inpatient Postop Pain Control: Uneventful Sign Out: Well controlled pain PONV: No Neuro/Psych: Uneventful Sign Out: Acceptable/Baseline neuro status Airway/Respiratory: Uneventful Sign Out: Acceptable/Baseline resp. status CV/Hemodynamics: Uneventful Sign Out: Acceptable CV status; No obvious hypovolemia; No obvious fluid overload Other NRE: NONE DID A NON-ROUTINE EVENT OCCUR? No Last vitals: Vitals Value Taken Time BP 115/61 04/08/23 1514 Temp Pulse 109 04/08/23 1540 Resp 16 04/08/23 1540 SpO2 100 % 04/08/23 1540 Vitals shown include unvalidated device data. Electronically Signed By: Hunter Philip MD April 08, 2023 3:40 PM * Anesthesia Procedure Notes - Evelyn Sanchez APRN YARDING AND FOLDING MACHINE OPERATOR - 04/08/2023 10:33 AM CDTAssociated Order(s): Airway Airway Patient location during procedure: OR Procedure Start/Stop Times: 04/08/2023 10:00 AM Staff - YARDING AND FOLDING MACHINE OPERATOR: Evelyn Sanchez APRN CRNA Performed By: CRNAIndications and Patient Condition Indications for airway management: izzy-procedural Induction type:intravenous Mask difficulty assessment: 1 - vent by mask Final Airway Details Final airway type: endotracheal airway Successful airway: ETT - single Endotracheal Airway Details ETT size (mm): 7.0 Cuffed: yes Cuff volume (mL): 7 Successful intubation technique: video laryngoscopy VL Blade Size: Glidescope 3 Grade View of Cords: 1 Position: Center Measured from: lips Secured at (cm): 22 Bite block used: None Post intubation assessment Placement verified by: capnometry, equal breath sounds and chest rise Number of attempts at approach: 1 Secured with: plastic tape Ease of procedure: easy Dentition: Intact and Unchanged Medication(s) Administered Medication Administration Time: 04/08/2023 10:00 AM * Anesthesia Preprocedure Evaluation - Hunter Philip MD - 04/08/2023 8:57 AM CDT Anesthesia Pre-Procedure Evaluation Patient: Mora Galeas : 1960 Procedure : Procedure(s): LEFT TOTAL HIP ARTHROPLASTY REVISION AND OPEN REDUCTION INTERNAL FIXATION PROXIMAL FEMUR Past Medical History: Diagnosis Date ADHD (attention deficit hyperactivity disorder) Anemia Anxiety and depression Hypertension RA (rheumatoid arthritis) (H) Rheumatoid arthritis (H) Seizure (H) Thoracic compression fracture (H) multiple thoracic and lumbar compression fractures Past Surgical History: Procedure Laterality Date ARTHROPLASTY HIP Left 03/25/2023 Procedure: left total hip arthroplasty with removal of hardware; Surgeon: Cj Chen MD; Location: [facility] OR CARPAL TUNNEL RELEASE RT/LT Bilateral BOARD WRITER SURGERY c section x 3 OPEN REDUCTION INTERNAL FIXATION HIP NAILING Left 01/25/2021 Procedure: Operative fixation of left femoral neck fracture with cannulated screws; Surgeon: Cj Chen MD; Location: [facility] OR ORTHOPEDIC SURGERY right middle finger surgery TOTAL KNEE ARTHROPLASTY Left 04/2021 TUBAL LIGATION Allergies Allergen Reactions Aspirin Anaphylaxis Social History Tobacco Use Smoking status: Never Smokeless tobacco: Never Substance Use Topics Alcohol use: Yes Comment: 2 beers nightly Wt Readings from Last 1 Encounters: 04/07/23 83.5 kg (184 lb 1.4 oz) Anesthesia Evaluation ROS/MED HX ENT/Pulmonary: - neg pulmonary ROS Neurologic: Cardiovascular: (+) hypertension- - - - - METS/Exercise Tolerance: Hematologic: (+) anemia, Musculoskeletal: (+) arthritis, fracture, GI/Hepatic: - neg GI/hepatic ROS Renal/Genitourinary: - neg Renal ROS Endo: - neg endo ROS Psychiatric/Substance Use: (+) psychiatric history anxiety Infectious Disease: Malignancy: Other: Physical Exam Airway Mallampati: II TM distance: > 3 FB Neck ROM: full Mouth opening: > 3 cm Respiratory Devices and Support Dental (+) Minor Abnormalities - some fillings, tiny chips Cardiovascular cardiovascular exam normal Pulmonary pulmonary exam normal OUTSIDE LABS: CBC: Lab Results Component Value Date WBC 6.4 04/08/2023 WBC 7.3 04/07/2023 HGB 9.6 (L) 04/08/2023 HGB 11.0 (L) 04/07/2023 HCT 28.8 (L) 04/08/2023 HCT 33.7 (L) 04/07/2023 PLT 475 (H) 04/08/2023 PLT 587 (H) 04/07/2023 BMP: Lab Results Component Value Date NA 136 04/08/2023 NA 135 (L) 04/07/2023 POTASSIUM 4.1 04/08/2023 POTASSIUM 4.3 04/07/2023 CHLORIDE 103 04/08/2023 CHLORIDE 100 04/07/2023 CO2 26 04/08/2023 CO2 25 04/07/2023 BUN 12.2 04/08/2023 BUN 11.9 04/07/2023 CR 0.51 04/08/2023 CR 0.57 04/07/2023 GLC 97 04/08/2023 GLC 91 04/07/2023 COAGS: Lab Results Component Value Date PTT 33 04/07/2023 INR 1.39 (H) 04/08/2023 POC: No results found for: BGM, HCG, HCGS HEPATIC: No results found for: ALBUMIN, PROTTOTAL, ALT, AST, GGT, ALKPHOS, BILITOTAL, BILIDIRECT, PRISCILA OTHER: Lab Results Component Value Date BUBBA 8.6 (L) 04/08/2023 Anesthesia Plan ASA Status: 2 Anesthesia Type: General. - Airway: ETT Induction: Intravenous. Maintenance: Balanced. Consents Anesthesia Plan(s) and associated risks, benefits, and realistic alternatives discussed. Questions answered and patient/admitting representative(s) expressed understanding. - Discussed: - Discussed with: Patient - Extended Intubation/Ventilatory Support Discussed: No. - Patient is DNR/DNI Status: No Use of blood products discussed: No . Postoperative Care Pain management: IV analgesics, Oral pain medications, Multi-modal analgesia. PONV prophylaxis: Ondansetron (or other 5HT-3), Dexamethasone or Solumedrol Comments: Hunter Philip MD documented in this encounter Miscellaneous Notes * Anesthesia Care Transfer Note - Hunter Rodriguez APRN YARDING AND FOLDING MACHINE OPERATOR - 04/08/2023 3:17 PM CDT Patient: Mora Galeas Procedure: Procedure(s): LEFT TOTAL HIP ARTHROPLASTY REVISION AND OPEN REDUCTION INTERNAL FIXATION PROXIMAL FEMUR Diagnosis: Periprosthetic hip fracture, initial encounter [M97.8XXA, Z96.649] Diagnosis Additional Information: No value filed. Anesthesia Type: General Note: Oropharynx: oropharynx clear of all foreign objects Level of Consciousness: drowsy Oxygen Supplementation: room air Independent Airway: airway patency satisfactory and stable Dentition: dentition unchanged Vital Signs Stable: post-procedure vital signs reviewed and stable Report to RN Given: handoff report given Patient transferred to: PACU Handoff Report: Identifed the Patient, Identified the Reponsible Provider, Reviewed the pertinent medical history, Discussed the surgical course, Reviewed Intra-OP anesthesia mangement and issues during anesthesia, Set expectations for post-procedure period and Allowed opportunity for questions andacknowledgement of understanding Vitals: Vitals Value Taken Time BP 115/61 04/08/23 1514 Temp Pulse 108 04/08/23 1515 Resp 21 04/08/23 1515 SpO2 95 % 04/08/23 1515 Vitals shown include unvalidated device data. Electronically Signed By: Hunter Rodriguez APRN CRNA April 08, 2023 3:17 PM documented in this encounter Plan of Treatment Not on file documented as of this encounter Goals Goal Patient Goal Type Associated Problems Recent Progress Patient-Stated? Author Total Joint Replacement Hip Pathway Care Plan Total Joint Replacement Hip Pathway No Octavia Beauchamp documented as of this encounter Procedures Procedure Name Priority Date/Time Associated Diagnosis Comments ANE AIRWAY ETT PERFORMABLE Routine 04/08/2023 10:00 AM CDT documented in this encounter Results * ANE AIRWAY ETT PERFORMABLE (04/08/2023 10:00 AM CDT) Narrative Evelyn Sanchez APRN CRNA - 04/08/2023 10:00 AM CDT Evelyn Sanchez APRN CRNA ? 04/08/2023 10:34 AM Airway ? Patient location during procedure: OR ? Procedure Start/Stop Times: 04/08/2023 10:00 AM Staff - ? YARDING AND FOLDING MACHINE OPERATOR: Evelyn Sanchez APRN CRNA ? Performed By: CRNAIndications and Patient Condition ? Indications for airway management: izzy-procedural ? Induction type:intravenous ? Mask difficulty assessment: 1 - vent by mask Final Airway Details ? Final airway type: endotracheal airway ? Successful airway: ETT - single Endotracheal Airway Details ? ETT size (mm): 7.0 ? Cuffed: yes ? Cuff volume (mL): 7 ? Successful intubation technique: video laryngoscopy ? VL Blade Size: Glidescope 3 ? Grade View of Cords: 1 ? Position: Center ? Measured from: lips ? Secured at (cm): 22 ? Bite block used: None Post intubation assessment ? Placement verified by: capnometry, equal breath sounds and chest rise ? Number of attempts at approach: 1 ? Secured with: plastic tape ? Ease of procedure: easy ? Dentition: Intact and Unchanged Medication(s) Administered Medication Administration Time: 04/08/2023 10:00 AM Hunter Philip MD [place] ANESTHESIA documented in this encounter Visit Diagnoses Not on filedocumented in this encounter Administered Medications Inactive Administered Medications - up to 3 most recent administrations Medication Order MAR Action Action Date Dose Rate Site ceFAZolin Sodium (ANCEF) injection 2 g Routine, 2 g, Intravenous, PRE-OP/PRE-PROCEDURE, Starting on Tue04/08/23 at 0841, For 1 dose, Give first dose within 1 hour PRIOR to incision. If patient weight is greater than or equal to 120 kg increase dose to 3 g., Indications: Perioperative Pharmacoprophylaxis, Pre-procedure $Given 04/08/2023 9:55 AM CDT 2 g ceFAZolin Sodium (ANCEF) injection 2 g Routine, 2 g, Intravenous, SEE ADMIN INSTRUCTIONS, Starting on Tue04/08/23 at 0841, Intra-Op Dose.??Give every 4 hours while patient in surgery, starting 4 hours after pre-op dose., Indications: Perioperative Pharmacoprophylaxis, Pre-procedure $Given 04/08/2023 2:01 PM CDT 2 g dexamethasone (DECADRON) injection Intravenous, PRN, Administer over 1 Minutes, Starting on Tue04/08/23 at 0958, Anesthesia Intra-op $Given 04/08/2023 9:58 AM CDT 8 mg dexmedeTOMIDine (PRECEDEX) 4 mcg/mL in sodium chloride 0.9 % 100 mL infusion Intravenous, CONTINUOUS PRN, Starting on Tue04/08/23 at 1025, Anesthesia Intra-op Rate/Dose Change 04/08/2023 12:26 PM CDT 0.2 mcg/kg/hr 4.175 mL/hr $New Bag 04/08/2023 10:25 AM CDT 0.5 mcg/kg/hr 10.438 mL /hr fentaNYL (PF) (SUBLIMAZE) injection Intravenous, PRN, Administer over 3-5 Minutes, Starting on Tue04/08/23 at 0958, Anesthesia Intra-op $Given 04/08/2023 9:58 AM CDT 100 mcg glycopyrrolate (ROBINUL) injection Intravenous, PRN, Administer over 1-2 Minutes, Starting on Tue04/08/23 at 0958, Anesthesia Intra-op $Given 04/08/2023 9:58 AM CDT 0.2 mg HYDROmorphone (DILAUDID) injection Intravenous, PRN, Starting on Tue04/08/23 at 1035, Anesthesia Intra-op $Given 04/08/2023 1:22 PM CDT 0.5 mg $Given 04/08/2023 11:02 AM CDT 0.5 mg $Given 04/08/2023 10:43 AM CDT 0.5 mg lactated ringers infusion at 10 mL/hr, Intravenous, CONTINUOUS, IF patient NOT on dialysis., Pre-procedure, Starting on Tue04/08/23 at 0900, Until Tue04/08/23 at 1513 $New Bag 04/08/2023 12:30 PM CDT $New Bag 04/08/2023 8:42 AM CDT 10 mL/hr lidocaine 1 % injection Other, PRN, Starting on Tue04/08/23 at 0958, Anesthesia Intra-op $Given 04/08/2023 9:58 AM CDT 30 mg midazolam (VERSED) injection Intravenous, Administer over 2 Minutes, PRN, Starting on Tue04/08/23 at 0952, Anesthesia Intra-op $Given 04/08/2023 9:52 AM CDT 2 mg ondansetron (ZOFRAN) injection Intravenous, PRN, Administer over 2-5 Minutes, Starting on Tue04/08/23 at 1408, Anesthesia Intra-op $Given 04/08/2023 2:08 PM CDT 4 mg propofol (DIPRIVAN) injection 10 mg/mL vial Intravenous, PRN, Starting on Tue04/08/23 at 0958, Anesthesia Intra-op $Given 04/08/2023 2:57 PM CDT 100 mg $Given 04/08/2023 9:58 AM CDT 200 mg rocuronium injection Intravenous, PRN, Starting on Tue04/08/23 at 0958, Anesthesia Intra-op $Given 04/08/2023 12:28 PM CDT 10 mg $Given 04/08/2023 11:55 AM CDT 20 mg $Given 04/08/2023 11:25 AM CDT 20 mg sugammadex (BRIDION) injection Intravenous, PRN, Starting on Tue04/08/23 at 1447, Anesthesia Intra-op $Given 04/08/2023 2:47 PM CDT 200 mg tranexamic acid 1 g in 100 mL NS IV bag (premix) 1 g, Intravenous, Administer over 10 Minutes, ONCE, On Tue04/08/23 at 0900, For 1 dose, Give before incision., Pre-procedure $Given 04/08/2023 10:00 AM CDT 1 g tranexamic acid 1 g in 100 mL NS IV bag (premix) 1 g, Intravenous, Administer over 10 Minutes, ONCE, On Tue04/08/23 at 0900, For 1 dose, Give at Closure., Pre-procedure $Given 04/08/2023 2:26 PM CDT 1 g documented in this encounter Additional Health Concerns Problem Noted Date Diagnosed Date Total Joint Replacement Hip Pathway 03/15/2023 documented as of this encounter Care Teams Track Laying Machine Operator Relationship Specialty Start Date End Date Case [address] [place] [address] PCP - General Family Medicine 01/25/21 documented as of this encounter
--- OUTSIDE RECORDS SUMMARY | 2023-09-21 15:06 | XMS_ITS | Encounter Summary ---
Author Name Unknown Organization [facility] Address [address] [place] [address]. [place] [address] Care Team Providers Care Repair Manager Name Role Phone Sima Case Sierra Primary Care Provider [phone] Reason for Visit * Reason Comments Hip Pain * Auth/Cert (Routine) Specialty Diagnoses / Procedures Referred By Konstantin t Referred To Contact Surgery Diagnoses Periprosthetic hip fracture, initial encounter Periprosthetic hip fracture, initial encounter Rh Preop/Postop [address] [place] [address] Referral ID Status Reason Start Date Expiration Date Visits Re quested Visits Authorized [id number] 1 1 Encounter Details Date Type Department Care Team (Late st Contact Info) Description 04/07/2023 2:25 PM CDT - 04/12/2023 11:32 AM CDT Hospital Encounter [facility] [address] [place] [address] Rusty Schultz PA-C [facility] [address] [place] [address] Deyanira Locke MD [address] [address] Anemia due to blood loss, acute (Primary Dx); Periprosthetic hip fracture, initial encounter; Status post hip replacement, unspecified laterality Discharge Disposition: Home or Self Care Social History Tobacco Use Types Packs/Day Years [...] PM CDT documented as of this encounter Last [...] Mass Index 27.99 04/07/2023 7:17 PM CDT documented in this encounter Discharge Summaries * Jonathan Linn MD - 04/12/2023 11:32 AM CDT Physician Discharge Summary [facility] Hospitalist Discharge Summary-[facility] Name: Mora Galeas Date of : 1960 Age: [age] year old Primary care provider: Case Gao Admit date: 04/07/2023 Discharge date and time: 04/12/2023 11:32 AM Discharge Physician: Jonathan Linn M.D., M.B.A. Primary Discharge Diagnosis Recent left hip arthroplasty on March 25, 2023 Periprosthetic left hip fracture Acute blood loss anemia Secondary Diagnosis /chronic medical conditions Past Medical History: Diagnosis Date ADHD (attention deficit hyperactivity disorder) Anemia Anxiety and depression Hypertension RA (rheumatoid arthritis) (H) Rheumatoid arthritis (H) Seizure (H) Thoracic compression fracture (H) multiple thoracic and lumbar compression fractures Past Surgical History: Past Surgical History: Procedure Laterality Date ARTHROPLASTY HIP Left 03/25/2023 Procedure: left total hip arthroplasty with removal of hardware; Surgeon: Cj Chen MD; Location: OR ARTHROPLASTY REVISION HIP Left 04/08/2023 Procedure: LEFT TOTAL HIP ARTHROPLASTY REVISION AND OPEN REDUCTION INTERNAL FIXATION PROXIMAL FEMUR; Surgeon: Fazal Ramirez MD; Location: OR CARPAL TUNNEL RELEASE RT/LT Bilateral SUPPLY TECHNICIAN SURGERY c section x 3 OPEN REDUCTION INTERNAL FIXATION HIP NAILING Left 01/25/2021 Procedure: Operative fixation of left femoral neck fracture with cannulated screws; Surgeon: Cj Chen MD; Location: OR ORTHOPEDIC SURGERY right middle finger surgery TOTAL KNEE ARTHROPLASTY Left 04/2021 TUBAL LIGATION Brief Summary of Hospital stay : Please refer to Admission H&P note and subsequent progress notes in EMR for full details of patient care. Reason for Hospitalization(C/C,HPI and brief patient summary):Left hip pain in the left hip periprosthetic fracture with recent left total arthroplasty on 25 March Significant findings(Primary diagnosis )Procedures and treatments provided(Hospital course ,consults, procedures):Please see below for details Mora Galeas is a 62 year old female admitted on 04/07/2023. She history of rheumatoid arthritis, seizures, hypertension, anxiety and depression underwent recent left total hip replacement on March 25, 2023 for failed where the hardware was falling off left total hemiarthroplasty. She recovered from surgery right away and got discharged the next day to home. 2 days later on March 27 she was going up the stairs and heard a pop in her left hip. Since then she has been having significant left hip pain. Went to her primary orthopedic surgeon for postop follow-up and her x-ray showed periprosthetic fracture. And is advised to come into the emergency room to be admitted as is her primary surgeon Dr. Cj Zhou is on vacation. Problem list (medical problems addressed during hospital stay): Recent left hip arthroplasty on March 25, 2023 Periprosthetic left hip fracture Admitted to the hospital under inpatient status Orthopedic surgery consultation obtained and she underwent Left revision total hip arthroplasty, stem explant and revision to long modular stem and Left proximal femur open reduction and internal fixation on 04/08 by Fazal Galeano MD -- patient got well enough to go go home with outpatient PT rather than Rehab . History of rheumatoid arthritis; Continue Plaquenil Hold methotrexate History of seizure disorder; Continue Keppra History of hypertension; --Blood pressure is stable , resumed home med lisinopril hydrochlorothiazide History of depression and anxiety Continue venlafaxine Tachycardia -- improved with IVF , monitor Acute postop blood loss anemia -- preop hgb 11 on 04/07/23. -- 11>>9.6>>7.6 >>6.8 improved to 7.7 after transfusion of a unit of blood -- Hgb 7.8 on discharge, oral iron recommended Consultations during hospital stay: ORTHOPEDIC SURGERY IP CONSULT CARE MANAGEMENT / SOCIAL WORK IP CONSULT PHYSICAL THERAPY ADULT IP CONSULT OCCUPATIONAL THERAPY ADULT IP CONSULT PHARMACY TO DOSE WARFARIN PAIN MANAGEMENT ADULT IP CONSULT [facility] IP CONSULT PHYSICAL THERAPY ADULT IP CONSULT PHYSICAL THERAPY ADULT IP CONSULT OCCUPATIONAL THERAPY ADULT IP CONSULT Patient discharge Condition: stable BP 118/44 (BP Location: Right arm) Pulse 94 Temp 97.3 ??F (36.3 ??C) (Temporal) Resp 12 Ht 1.727 m (5' 8) Wt 83.5 kg (184 lb 1.4 oz) SpO2 100% BMI 27.99 kg/m?? Discharge Instructions: Patient/family instructions: Written discharge instruction given to patient/family Discharge Medications: Review of your medicines START taking Dose / Directions ferrous sulfate 325 (65 Fe) MG EC tablet Commonly known as: FE TABS Used for: Anemia due to blood loss, acute Dose: 325 mg Take 1 tablet (325 mg) by mouth daily for 30 days Quantity: 30 tablet Refills: 0 HYDROmorphone 2 MG tablet Commonly known as: DILAUDID Used for: Periprosthetic hip fracture, initial encounter Dose: 2 mg Take 1 tablet (2 mg) by mouth every 3 hours as needed for severe pain Quantity: 20 tablet Refills: 0 CONTINUE these medicines which may have CHANGED, or have new prescriptions. If we are uncertain of the size of tablets/capsules you have at home, strength may be listed as something that might have changed. Dose / Directions acetaminophen 325 MG tablet Commonly known as: TYLENOL This may have changed: how much to take when to take this reasons to take this Used for: Periprosthetic hip fracture, initial encounter Dose: 975 mg Take 3 tablets (975 mg) by mouth every 8 hours as needed for mild pain Quantity: 60 tablet Refills: 0 warfarin ANTICOAGULANT 2.5 MG tablet Commonly known as: COUMADIN This may have changed: how much to take how to take this when to take this additional instructions Used for: Status post hip replacement, unspecified laterality Take 5 mg daily on 04/12 and 04/13 and then check INR for further dosing Quantity: 20 tablet Refills: 0 CONTINUE these medicines which have NOT CHANGED Dose / Directions etanercept 50 MG/ML injection Commonly known as: ENBREL Notes to patient: Home schedule Dose: 50 mg Inject 50 mg Subcutaneous once a week Wednesdays Refills: 0 folic acid 1 MG tablet Commonly known as: FOLVITE Dose: 1 mg Take 1 mg by mouth daily Refills: 0 hydroxychloroquine 200 MG tablet Commonly known as: PLAQUENIL Dose: 2 tablet Take 2 tablets by mouth every morning (2 x 200 mg = 400 mg) Refills: 0 hydrOXYzine 25 MG tablet Commonly known as: ATARAX Used for: Status post total hip replacement, left Dose: 25 mg Take 1 tablet (25 mg) by mouth every 6 hours as needed for itching or anxiety (with pain, moderate pain) Quantity: 337.5 tablet Refills: 0 levETIRAcetam 500 MG tablet Commonly known as: KEPPRA Dose: 2 tablet Take 2 tablets by mouth 2 times daily (2 x 500 mg = 1,000 mg) Refills: 0 lisinopril-hydrochlorothiazide 10-12.5 MG tablet Commonly known as: ZESTORETIC Dose: 1 tablet Take 1 tablet by mouth daily Refills: 0 methotrexate 2.5 MG tablet Notes to patient: Home schedule Dose: 10 tablet Take 10 tablets by mouth every 7 days Wednesdays (10 x 2.5 mg = 25 mg) Refills: 0 predniSONE 5 MG tablet Commonly known as: DELTASONE Notes to patient: Home schedule Dose: 1 tablet Take 1 tablet by mouth as needed Refills: 0 senna-docusate 8.6-50 MG tablet Commonly known as: SENOKOT-S/PERICOLACE Used for: Periprosthetic hip fracture, initial encounter Dose: 1 tablet Take 1 tablet by mouth 2 times daily as needed for constipation Refills: 0 venlafaxine 75 MG tablet Commonly known as: EFFEXOR Dose: 3 tablet Take 3 tablets by mouth 2 times daily (3 x 75 mg = 225 mg) Refills: 0 STOP taking oxyCODONE 5 MG tablet Commonly known as: ROXICODONE Where to get your medicines These medications [place], [place] - [address] [facility] [address] [facility] [address] ferrous sulfate 325 (65 Fe) MG EC tablet warfarin ANTICOAGULANT 2.5 MG tablet Some of these will need a paper prescription and others can be bought over the counter. Ask your nurse if you have questions. Bring a paper prescription for each of these medications HYDROmorphone 2 MG tablet Discharge diet:Orders Placed This Encounter Diet Diet regular diet Discharge activity:Activity as tolerated Discharge follow-up: Follow up with primary care provider in 7 days or earlier if symptoms return or gets worse. Follow up with design consultant as instructed with ortho Other instructions: We discussed with patient/family about detail discharge instructions as well as discharge medications above including potential risks,side effects and benefits.Patient/family understood benefits and potential serious side effects of taking these medications and need to follow up with PCP if the patient develops complications. Patient is also advised to see a doctor immediately for severe symptoms. Major procedure performed/ Significant Diagnostic Studies: Results for orders placed or performed during the hospital encounter of 04/07/23 CT Hip Left w/o Contrast Narrative CT HIP LEFT WITHOUT CONTRAST 04/07/2023 4:06 PM INDICATION: Proximal femur fracture, evaluate fracture pattern. Hip pain. Fracture, known or rule out, or trauma. No fracture f/u or history of osteoarthritis. Hip x-ray result available. No known/automatically detected potential contraindications to imaging. COMPARISON: None. TECHNIQUE: Noncontrast. Axial, sagittal and coronal thin-section reconstruction. Dose reduction techniques were used. CONTRAST: None. FINDINGS: Status post left total hip arthroplasty. There is an acute periprosthetic fracture involving the intertrochanteric region with displacement of the lesser trochanteric fragment. There is surrounding soft tissue edema/hematoma. There is additional partially visualized hematoma in the soft tissues lateral to the left hip. There is diffuse osseous demineralization. There is cholelithiasis, partially visualized. Impression IMPRESSION: 1. Status post left total hip arthroplasty. There is an acute, displaced periprosthetic fracture of the intertrochanteric left femur, with adjacent soft tissue edema or hematoma. There is additional partially visualized hematoma in the soft tissues lateral to the left hip. 2. Diffuse osseous demineralization. 3. Cholelithiasis, partially visualized. JEROD YEAGER MD SYSTEM ID: [id number] XR Surgery RAAD L/T 5 Min Fluoro w Stills Narrative This exam was marked as non-reportable because it will not be read by a radiologist or a [facility] non-radiologist provider. XR Pelvis w Hip Port Left 1 View Narrative XR PELVIS AND HIP PORTABLE LEFT 1 VIEW 04/08/2023 4:13 PM HISTORY: Status post Hip surgery COMPARISON: 03/25/2023 Impression IMPRESSION: Status post left total hip arthroplasty revision with longstem femoral component. Periprosthetic fracture of the proximal femur with improved alignment. Expected postsurgical soft tissue edema, subcutaneous emphysema, and skin pepe. Normal joint alignment. Osteopenia. POLO GARCIA MD SYSTEM ID: [id number] CT Pelvis Soft Tissue w Contrast Narrative EXAM: CT PELVIS SOFT TISSUE W CONTRAST LOCATION: [facility] DATE: 04/10/2023 INDICATION: Hgb 9 >6.8 after hip surgery. Soft BP. Concerning for bleeding or hematoma. COMPARISON: None. TECHNIQUE: CT scan of the pelvis was performed with IV contrast. Multiplanar reformats were obtained. Dose reduction techniques were used. CONTRAST: 100mL Isovue 370 FINDINGS: PELVIC ORGANS: No intrapelvic hematoma. The bladder is normal. Bowel loops are within normal limits. Probable gallstone visualized. Normal vasculature. MUSCULOSKELETAL: Postoperative changes from a left hip arthroplasty. Expected soft tissue air and fluid surrounding the arthroplasty component. The components stabilizing a comminuted fracture of theleft femur. There is a postoperative seroma posterior to the proximal femur measuring 9.1 x 4.4 cm and a second postoperative seroma in the lateral soft tissues measuring 5.9 x 3.5 cm. No area of active bleeding and no significant hematoma evident. Impression IMPRESSION: 1. No significant hematoma or site of bleeding. 2. Postoperative changes status post left hip arthroplasty crossing a comminuted intratrochanteric fracture. There are fluid collections surrounding the left femur posteriorly and in the superficial soft tissues most consistent with postoperative seromas. Recent Labs Lab 04/12/23 0641 04/11/23 1758 04/11/23 0651 04/10/23 1820 04/10/23 0707 04/09/23 0739 04/08/23 0357 WBC -- -- -- -- 9.5 16.6* 6.4 HGB 7.8* 7.6* 7.7* < > 7.6* 9.1* 9.6* HCT -- -- -- -- 23.4* 28.3* 28.8* MCV -- -- -- -- 99 101* 98 PLT -- -- 383 -- 417 618* 475* < > = values in this interval not displayed. No results for input(s): CULT in the last 168 hours. Recent Labs Lab 04/10/23 0707 04/09/23 0739 04/08/23 1536 04/08/23 0357 NA 136 133* -- 136 POTASSIUM 4.4 4.3 -- 4.1 CHLORIDE 102 99 -- 103 CO2 27 24 -- 26 ANIONGAP 7 10 -- 7 GLC 108* 108* 149* -- 97 BUN 11.2 11.4 -- 12.2 CR 0.56 0.52 0.54 0.51 GFRESTIMATED >90 >90 >90 >90 BUBBA 8.5* 8.8 -- 8.6* Recent Labs Lab 04/10/23 0707 04/09/23 0739 04/08/23 0357 04/07/23 1454 GLC 108* 108* 149* 97 91 Recent Labs Lab 04/12/23 0641 04/11/23 0651 04/10/23 0707 INR 1.28* 1.29* 1.31* Pending Results: Unresulted Labs Ordered in the Past 30 Days of this Admission Date and Time Order Name Status Description 04/10/2023 8:39 PM Prepare red blood cells (unit) Preliminary Patient Allergies: Allergies Allergen Reactions Aspirin Anaphylaxis Disposition: Disposition: home I saw and evaluated the patient on day of discharge and discharge instructions reviewed and all thepatient's questions and concerns addressed. Over 30 minutes spent on discharge and coordination of discharge process for this patient. Disclaimer: This note consists of symbols derived from keyboarding, dictation and/or voice recognition software. As a result, there may be errors in the script that have gone undetected. Please consider this when interpreting information found in this chart documented in this encounter Discharge Instructions * Discharge Instructions* Rohini Beal PA-C - 04/08/2023 9:54 AM CDT Outpatient Discharge Instructions Activity: You are weightbearing as tolerated regarding your operative extremity. Please use crutches and assistive devices as needed. No flexion past 90 degrees. No adduction past midline. Pain Control: Tylenol provides good pain relief following surgery. You may take Tylenol 650mg every6 hours as needed. An additional narcotic medication was sent to the pharmacy, Oxycodone. The narcotic pain medication should only be taken as needed and for pain that is not responsive to ibuprofen. Dressing: Dressing will stay intact until post op appointment. Elevation: Elevating the extremity will help with swelling of the first couple days after surgery. Blood Clots: You were prescribed Coumadin per Pharmacy dosing daily for 6 weeks to prevent any blood clots. Please call as soon as possible to make an appointment to be seen in Dr. Fazal Ramirez's clinic in 2 week(s). Dr. Ramirez's floor care technician is Dede Sadler. Please contact her at [phone] to schedule an [address] Ramirez sees patient's at [address] clinic locations: [facility] [address] [place] [id number] [place] [address] Orthopedics - [place] [address], [address], [place] [address] Please call the on-call phone number [phone] during evenings, nights and weekends for any questions or concerns! Please call with any questions or concerns! documented in this encounter Medications at Time of Discharge Medication Sig Dispensed Refills Start Date End Date etanercept (ENBREL) 50 MG/ML injection Inject 50 mg Subcutaneous once a week Wednesdays 0 folic acid (FOLVITE) 1 MG tablet Take 1 mg by mouth daily 0 hydroxychloroquine (PLAQUENIL) 200 MG tablet Take 2 tablets by mouth every morning (2 x 200 mg = 400 mg) 0 hydrOXYzine (ATARAX) 25 MG tabletIndications:Sta tus post total hip replacement, left Take 1 tablet (25 mg) by mouth every 6 hours as needed for itching or anxiety (with pain, moderate pain) 337.5 tablet 0 03/25/2023 levETIRAcetam (KEPPRA) 500 MG tablet Take 2 tablets by mouth 2 times daily (2 x 500 mg = 1,000 mg) 0 lisinopril-hydrochlor othiazide (ZESTORETIC) 10-12.5 MG tablet Take 1 tablet by mouth daily 0 methotrexate 2.5 MG tablet Take 10 tablets by mouth every 7 days Wednesdays (10 x 2.5 mg = 25 mg) 0 predniSONE (DELTASONE) 5 MG tablet Take 1 tablet by mouth as needed 0 venlafaxine (EFFEXOR) 75 MG tablet Take 3 tablets by mouth 2 times daily (3 x 75 mg = 225 mg) 0 acetaminophen (TYLENOL) 325 MG tabletIndications:Per iprosthetic hip fracture, initial encounter Take 3 tablets (975 mg) by mouth every 8 hours as needed for mild pain 60 tablet 0 04/10/2023 HYDROmorphone (DILAUDID) 2 MG tabletIndications:Per iprosthetic hip fracture, initial encounter Take 1 tablet (2 mg) by mouth every 3 hours as needed for severe pain 20 tablet 0 04/10/2023 senna-docusate (SENOKOT-S/PERICOLACE ) 8.6-50 MG tabletIndications:Per iprosthetic hip fracture, initial encounter Take 1 tablet by mouth 2 times daily as needed for constipation 0 04/11/2023 warfarin ANTICOAGULANT (COUMADIN) 2.5 MG tabletIndications:Sta tus post hip replacement, unspecified laterality Take 5 mg daily on 04/12 and 04/13 and then check INR for further dosing 20 tablet 0 04/12/2023 ferrous sulfate (FE TABS) 325 (65 Fe) MG EC tabletIndications:Ane william due to blood loss, acute Take 1 tablet (325 mg) by mouth daily for 30 days 30 tablet 0 04/12/2023 05/12/2023 documented as of this encounter Progress Notes * Trini Torres PA-C - 04/12/2023 10:51 AM CDT Orthopedic Surgery Mora Galeas 04/12/2023 Admit Date: 04/07/2023 POD: 4 Days Post-Op Procedure(s): LEFT TOTAL HIP ARTHROPLASTY REVISION AND OPEN REDUCTION INTERNAL FIXATION PROXIMAL FEMUR Patient resting comfortably in chair. Pain continues to improve. Tolerating oral intake. Denies nausea or vomiting Denies chest pain or shortness of breath Temp: [96.5 ??F (35.8 ??C)-98 ??F (36.7 ??C)] 97.3 ??F (36.3 ??C) Pulse: [89-94] 94 Resp: [12-16] 12 BP: (113-128)/(44-65) 118/44 SpO2: [92 %-100 %] 100 % Alert and oriented Dressing intact. Moderate left thigh swelling present. Bilateral calves are soft, non-tender. Left lower extremity is NVI. Sensation intact bilateral lower extremities Patient able to resist dorsi and plantar flexion bilaterally +Dp pulse Labs: Recent Labs Lab Test 04/12/23 0641 04/11/23 1758 04/11/23 0651 04/10/23 1820 04/10/23 0707 04/09/23 0739 04/08/23 0357 WBC -- -- -- -- 9.5 16.6* 6.4 HGB 7.8* 7.6* 7.7* < > 7.6* 9.1* 9.6* PLT -- -- 383 -- 417 618* 475* < > = values in this interval not displayed. Recent Labs Lab Test 04/12/23 0641 04/11/23 0651 04/10/23 0707 INR 1.28* 1.29* 1.31* 1. PLAN: Lovenox/coumadin for DVT prophylaxis. Mobilize with PT/OT with posterior hip precautions: No hip flexion past 90 deg. Flexion should be done with the hip in ER. No IR. Abduction pillow while in bed. WBAT LLE. Continue current pain regimen. Dressings: Keep intact. Change if >60% saturated or peeling off. Follow-up: 2 weeks post-op with Dr. Nina Ramirez team Left message with patient's rheumatology office to confirm recommendations regarding resuming her RA meds. ([phone]) 2. Disposition Anticipate d/c to home. Ortho stable. Trini Torres PA-C * Nesha Ross RN - 04/12/2023 10:21 AM CDT Care Management Follow Up Length of Stay (days): 5 Expected Discharge Date: 04/11/2023 Concerns to be Addressed: discharge planning Patient plan of care discussed at interdisciplinary rounds: Yes Anticipated Discharge Services: Patient requested outpatient PT Additional Information: CM following for discharge planning. [facility] accepted patient for placement today. CM met with patient and at the bedside. CM informed patient she was accepted at [facility], she stated she no longer wanted to go to TCU and would prefer to go home with outpatient PT. She would like to go to [facility] for PT on [facility] in [place]. She stated her can transport her and she is eager to discharge today. CM called and informed [facility] patient declined TCU placement. Hospitalist, charge nurse, and bedside nurse notified. Nesha Ross RN, BSN Inpatient Care Coordination [facility] [phone] * Trini Torres PA-C - 04/11/2023 11:12 AM CDT Orthopedic Surgery Mora Galeas 04/11/2023 Admit Date: 04/07/2023 POD: 3 Days Post-Op Procedure(s): LEFT TOTAL HIP ARTHROPLASTY REVISION AND OPEN REDUCTION INTERNAL FIXATION PROXIMAL FEMUR Patient resting comfortably in bed. Pain continues to improve. Tolerating oral intake. Denies nausea or vomiting Denies chest pain or shortness of breath Did receive a blood transfusion yesterday due to post-op anemia. Temp: [96.8 ??F (36 ??C)-97.6 ??F (36.4 ??C)] 97.2 ??F (36.2 ??C) Pulse: [91-106] 96 Resp: [16] 16 BP: (101-131)/(34-45) 131/45 SpO2: [96 %-100 %] 98 % Alert and oriented Dressing changed at bedside today by Dr Ramirez ([facility]) Minimal erythema of the surrounding skin. Bilateral calves are soft, non-tender. Left lower extremity is NVI. Sensation intact bilateral lower extremities Patient able to resist dorsi and plantar flexion bilaterally +Dp pulse Labs: Recent Labs Lab Test 04/11/23 0651 04/10/23 1820 04/10/23 0707 04/09/23 0739 04/08/23 0357 WBC -- -- 9.5 16.6* 6.4 HGB 7.7* 6.8* 7.6* 9.1* 9.6* PLT 383 -- 417 618* 475* Recent Labs Lab Test 04/11/23 0651 04/10/23 0707 04/09/23 0739 INR 1.29* 1.31* 1.18* 1. PLAN: Lovenox starting POD1. May restart Coumadin for DVT prophylaxis. Mobilize with PT/OT with posterior hip precautions: No hip flexion past 90 deg. Flexion should be done with the hip in ER. No IR. Abduction pillow while in bed. WBAT LLE. Continue current pain regimen. Dressings: Keep intact. Change if >60% saturated or peeling off. Follow-up: 2 weeks post-op with Dr. Nina Ramirez team 2. Disposition Anticipate d/c to TCU when medically cleared and progressing in PT. Would recommend monitoring Hgb for an additional day prior to discharge. Trini Torres PA-C * Jonathan Linn MD - 04/11/2023 9:57 AM CDT Images from the original note were not included. [facility] Hospitalist Progress Note Jonathan Linn M.D., M.B.A. 04/11/2023 Reason for Stay/active problem list Recent left hip arthroplasty on March 25, 2023 Periprosthetic left hip fracture Acute blood loss anemia Assessment and Plan: Summary of Stay: Mora Galeas is a 62 year old female admitted on 04/07/2023. She history of rheumatoid arthritis, seizures, hypertension, anxiety and depression underwent recent left total hip replacement on March 25, 2023 for failed where the hardware was falling off left total hemiarthroplasty. She recovered from surgery right away and got discharged the next day to home. 2 days later on March 27 she was going up the stairs and heard a pop in her left hip. Since then she has been having significant left hip pain. Went to her primary orthopedic surgeon for postop follow-up and her x-ray showed periprosthetic fracture. And is advised to come into the emergency room to be admitted as is her primary surgeon Dr. Cj Zhou is on vacation. Problem List with Assessment and Plan: Recent left hip arthroplasty on March 25, 2023 Periprosthetic left hip fracture Admitted to the hospital under inpatient status Orthopedic surgery consultation obtained and she underwent Left revision total hip arthroplasty, stem explant and revision to long modular stem and Left proximal femur open reduction and internal fixation on 04/08 by Fazal Galeano MD -- currently pain is controlled and working with rehab , Continue pain control and postop care History of rheumatoid arthritis; Continue Plaquenil Hold methotrexate History of seizure disorder; Continue Keppra History of hypertension; --Blood pressure is stable , resumed home med lisinopril hydrochlorothiazide History of depression and anxiety Continue venlafaxine Tachycardia -- improved with IVF , monitor Acute postop blood loss anemia -- preop hgb 11 on 04/07/23. -- 11>>9.6>>7.6 >>6.8 improved to 7.7 after transfusion of a unit of blood --Monitor hemoglobin every 12 hours, transfuse as needed for symptomatic anemia or hemoglobin of 7 or less. Patient is asymptomatic. VTE Prophylaxis: Defer to ortho Code Status: Full Code Diet: Advance Diet as Tolerated: Regular Diet Adult Diet Carranza Catheter: Not present Family updated today: No Disposition: TCU likely in the next 1 or 2 days. Would not discharge her today Interval History (Subjective): Patient is seen and examined by me today and medical record reviewed.Overnight events noted and care discussed with nursing staff. She denies any symptoms of chest pain or shortness of breath or dizziness. Hemoglobin dropped down to 6.8 yesterday and she received a unit of blood. No evidence of hematoma or internal bleeding on CT scanning of the pelvis. Otherwise she is doing well and working with therapy. Physical Exam: Last Vital Signs: BP 131/45 (BP Location: Right arm) Pulse 96 Temp 97.2 ??F (36.2 ??C) (Temporal) Resp 16 Ht 1.727 m (5' 8) Wt 83.5 kg (184 lb 1.4 oz) SpO2 98% BMI 27.99 kg/m?? I/O last 3 completed shifts: In: 2480 [P.O.:2180] Out: - Wt Readings from Last 5 Encounters: 04/07/23 83.5 kg (184 lb 1.4 oz) 03/25/23 69.9 kg (154 lb) 01/25/21 92.5 kg (204 lb) Constitutional: Alert Respiratory: Clear to auscultation bilaterally, no crackles or wheezing Cardiovascular: Regular rate and rhythm, normal S1 and S2, and no murmur noted Abdomen: Normal bowel sounds, soft, non-distended, non-tender Skin: No new rashes, no cyanosis, dry to touch Neuro: Non focal Extremities: No edema Other(s): All other systems: Negative Medications: All current medications were reviewed with changes reflected in problem list. Data: All new lab and imaging data was reviewed. Data reviewed today: I reviewed all new labs and imaging results over the last 24 hours. I personally reviewed Recent Labs Lab 04/11/23 0651 04/10/23 1820 04/10/23 0707 04/09/23 0739 04/08/23 0357 WBC -- -- 9.5 16.6* 6.4 HGB 7.7* 6.8* 7.6* 9.1* 9.6* HCT -- -- 23.4* 28.3* 28.8* MCV -- -- 99 101* 98 PLT 383 -- 417 618* 475* No results for input(s): CULT in the last 168 hours. Recent Labs Lab 04/10/23 0707 04/09/23 0739 04/08/23 1536 04/08/23 0357 NA 136 133* -- 136 POTASSIUM 4.4 4.3 -- 4.1 CHLORIDE 102 99 -- 103 CO2 27 24 -- 26 ANIONGAP 7 10 -- 7 GLC 108* 108* 149* -- 97 BUN 11.2 11.4 -- 12.2 CR 0.56 0.52 0.54 0.51 GFRESTIMATED >90 >90 >90 >90 BUBBA 8.5* 8.8 -- 8.6* Recent Labs Lab 04/10/23 0707 04/09/23 0739 04/08/23 0357 04/07/23 1454 GLC 108* 108* 149* 97 91 Recent Labs Lab 04/11/23 0651 04/10/23 0707 04/09/23 0739 INR 1.29* 1.31* 1.18* No results for input(s): TROPONIN, TROPI, TROPR in the last 168 hours. Invalid input(s): TROP, TROPONINIES Recent Results (from the past 48 hour(s)) CT Hip Left w/o Contrast Narrative CT HIP LEFT WITHOUT CONTRAST 04/07/2023 4:06 PM INDICATION: Proximal femur fracture, evaluate fracture pattern. Hip pain. Fracture, known or rule out, or trauma. No fracture f/u or history of osteoarthritis. Hip x-ray result available. No known/automatically detected potential contraindications to imaging. COMPARISON: None. TECHNIQUE: Noncontrast. Axial, sagittal and coronal thin-section reconstruction. Dose reduction techniques were used. CONTRAST: None. FINDINGS: Status post left total hip arthroplasty. There is an acute periprosthetic fracture involving the intertrochanteric region with displacement of the lesser trochanteric fragment. There is surrounding soft tissue edema/hematoma. There is additional partially visualized hematoma in the soft tissues lateral to the left hip. There is diffuse osseous demineralization. There is cholelithiasis, partially visualized. Impression IMPRESSION: 1. Status post left total hip arthroplasty. There is an acute, displaced periprosthetic fracture of the intertrochanteric left femur, with adjacent soft tissue edema or hematoma. There is additional partially visualized hematoma in the soft tissues lateral to the left hip. 2. Diffuse osseous demineralization. 3. Cholelithiasis, partially visualized. JEROD YEAGER MD SYSTEM ID: [id number] XR Surgery RAAD L/T 5 Min Fluoro w Stills Narrative This exam was marked as non-reportable because it will not be read by a radiologist or a [place] non-radiologist provider. XR Pelvis w Hip Port Left 1 View Narrative XR PELVIS AND HIP PORTABLE LEFT 1 VIEW 04/08/2023 4:13 PM HISTORY: Status post Hip surgery COMPARISON: 03/25/2023 Impression IMPRESSION: Status post left total hip arthroplasty revision with longstem femoral component. Periprosthetic fracture of the proximal femur with improved alignment. Expected postsurgical soft tissue edema, subcutaneous emphysema, and skin pepe. Normal joint alignment. Osteopenia. POLO GARCIA MD SYSTEM ID: [id number] COVID Status: COVID-19 PCR Results 04/10/2021 09:25 02/25/2022 16:54 COVID-19 PCR Results COVID-19 Virus by PCR (External Result) Negative Negative Details This result is from an external source. COVID-19 Antibody Results, Testing for Immunity No data to display Disclaimer: This note consists of symbols derived from keyboarding, dictation and/or voice recognition software. As a result, there may be errors in the script that have gone undetected. Please consider this when interpreting information found in this chart. * Isabel Hawthorne MD - 04/10/2023 8:23 PM CDT Cross Cover Called for hgb 6.8 Underwent periprosthetic fx repair on 04/08 and now with hgb 6.8 (drifting down since surgery). BPs 100/40 and tachy in the 100's Blood consent signed and in chart per Dr Aburto Transfuse 1 U prbc and recheck in am CT hip ordered by Dr Aburto to ensure to bleeding into the surgical site and it was negative * Jonathan Linn MD - 04/10/2023 12:11 PM CDT Images from the original note were not included. [facility] Hospitalist Progress Note Jonathan Linn M.D., M.B.A. 04/10/2023 Reason for Stay/active problem list Recent left hip arthroplasty on March 25, 2023 Periprosthetic left hip fracture Assessment and Plan: Summary of Stay: Mora Galeas is a 62 year old female admitted on 04/07/2023. She history of rheumatoid arthritis, seizures, hypertension, anxiety and depression underwent recent left total hip replacement on March 25, 2023 for failed where the hardware was falling off left total hemiarthroplasty. She recovered from surgery right away and got discharged the next day to home. 2 days later on March 27 she was going up the stairs and heard a pop in her left hip. Since then she has been having significant left hip pain. Went to her primary orthopedic surgeon for postop follow-up and her x-ray showed periprosthetic fracture. And is advised to come into the emergency room to be admitted as is her primary surgeon Dr. Cj Zhou is on vacation. Problem List with Assessment and Plan: Recent left hip arthroplasty on March 25, 2023 Periprosthetic left hip fracture Admitted to the hospital under inpatient status Orthopedic surgery consultation obtained and she underwent Left revision total hip arthroplasty, stem explant and revision to long modular stem and Left proximal femur open reduction and internal fixation on 04/08 by Fazal Galeano MD -- currently pain is controlled and working with rehab , Continue pain control and postop care History of rheumatoid arthritis; Continue Plaquenil Hold methotrexate History of seizure disorder; Continue Keppra History of hypertension; --Blood pressure is stable , resumed home med lisinopril hydrochlorothiazide History of depression and anxiety Continue venlafaxine Tachycardia -- improved with IVF , monitor Acute postop blood loss anemia -- preop hgb 11 on 04/07/23. -- 11>>9.6>>7.6 -- will repeat hgb at 6pm and am and transfuse as needed. Patient is asymptomatic VTE Prophylaxis: Defer to ortho Code Status: Full Code Diet: Advance Diet as Tolerated: Regular Diet Adult Carranza Catheter: Not present Family updated today: No Disposition: TCU in few days Interval History (Subjective): Patient is seen and examined by me today and medical record reviewed.Overnight events noted and care discussed with nursing staff. Pain control is better . No tachycardia today. Has no cp or sob Physical Exam: Last Vital Signs: BP 122/54 (BP Location: Left arm) Pulse 107 Temp 97.7 ??F (36.5 ??C) (Temporal) Resp 16 Ht 1.727 m (5' 8) Wt 83.5 kg (184 lb 1.4 oz) SpO2 99% BMI 27.99 kg/m?? I/O last 3 completed shifts: In: 2483 [P.O.:2280; I.V.:203] Out: 2049 [Urine:2049] Wt Readings from Last 5 Encounters: 04/07/23 83.5 kg (184 lb 1.4 oz) 03/25/23 69.9 kg (154 lb) 01/25/21 92.5 kg (204 lb) Constitutional: Alert Respiratory: Clear to auscultation bilaterally, no crackles or wheezing Cardiovascular: Regular rate and rhythm, normal S1 and S2, and no murmur noted Abdomen: Normal bowel sounds, soft, non-distended, non-tender Skin: No new rashes, no cyanosis, dry to touch Neuro: Non focal Extremities: No edema Other(s): All other systems: Negative Medications: All current medications were reviewed with changes reflected in problem list. Data: All new lab and imaging data was reviewed. Data reviewed today: I reviewed all new labs and imaging results over the last 24 hours. I personally reviewed Recent Labs Lab 04/10/2370604/09/2373804/08/23356 WBC 9.5 16.6* 6.4 HGB 7.6* 9.1* 9.6* HCT 23.4* 28.3* 28.8* MCV 99 101* 98 PLT 417 618* 475* No results for input(s): CULT in the last 168 hours. Recent Labs Lab 04/10/23 0704/09/23 0739 04/08/23 1536 04/08/23 035 NA 136 133* -- 136 POTASSIUM 4.4 4.3 -- 4.1 CHLORIDE 102 99 -- 103 CO2 27 24 -- 26 ANIONGAP 7 10 -- 7 GLC 108* 108* 149* -- 97 BUN 11.2 11.4 -- 12.2 CR 0.56 0.52 0.54 0.51 GFRESTIMATED >90 >90 >90 >90 BUBBA 8.5* 8.8 -- 8.6* Recent Labs Lab 04/10/23 0707 04/09/23 0739 04/08/23 0357 04/07/23 1454 GLC 108* 108* 149* 97 91 Recent Labs Lab 04/10/23 0707 04/09/23 0739 04/08/23 1815 INR 1.31* 1.18* 1.26* No results for input(s): TROPONIN, TROPI, TROPR in the last 168 hours. Invalid input(s): TROP, TROPONINIES Recent Results (from the past 48 hour(s)) CT Hip Left w/o Contrast Narrative CT HIP LEFT WITHOUT CONTRAST 04/07/2023 4:06 PM INDICATION: Proximal femur fracture, evaluate fracture pattern. Hip pain. Fracture, known or rule out, or trauma. No fracture f/u or history of osteoarthritis. Hip x-ray result available. No known/automatically detected potential contraindications to imaging. COMPARISON: None. TECHNIQUE: Noncontrast. Axial, sagittal and coronal thin-section reconstruction. Dose reduction techniques were used. CONTRAST: None. FINDINGS: Status post left total hip arthroplasty. There is an acute periprosthetic fracture involving the intertrochanteric region with displacement of the lesser trochanteric fragment. There is surrounding soft tissue edema/hematoma. There is additional partially visualized hematoma in the soft tissues lateral to the left hip. There is diffuse osseous demineralization. There is cholelithiasis, partially visualized. Impression IMPRESSION: 1. Status post left total hip arthroplasty. There is an acute, displaced periprosthetic fracture of the intertrochanteric left femur, with adjacent soft tissue edema or hematoma. There is additional partially visualized hematoma in the soft tissues lateral to the left hip. 2. Diffuse osseous demineralization. 3. Cholelithiasis, partially visualized. JEROD YEAGER MD SYSTEM ID: [id number] XR Surgery RAAD L/T 5 Min Fluoro w Stills Narrative This exam was marked as non-reportable because it will not be read by a radiologist or a [place] non-radiologist provider. XR Pelvis w Hip Port Left 1 View Narrative XR PELVIS AND HIP PORTABLE LEFT 1 VIEW 04/08/2023 4:13 PM HISTORY: Status post Hip surgery COMPARISON: 03/25/2023 Impression IMPRESSION: Status post left total hip arthroplasty revision with longstem femoral component. Periprosthetic fracture of the proximal femur with improved alignment. Expected postsurgical soft tissue edema, subcutaneous emphysema, and skin pepe. Normal joint alignment. Osteopenia. POLO GARCIA MD SYSTEM ID: [id number] COVID Status: COVID-19 PCR Results 04/10/2021 09:25 02/25/2022 16:54 COVID-19 PCR Results COVID-19 Virus by PCR (External Result) Negative Negative Details This result is from an external source. COVID-19 Antibody Results, Testing for Immunity No data to display Disclaimer: This note consists of symbols derived from keyboarding, dictation and/or voice recognition software. As a result, there may be errors in the script that have gone undetected. Please consider this when interpreting information found in this chart. * Fabricio Nguyen - 04/10/2023 11:59 AM CDT [facility] Progress Note [facility] Ortho/Spine Saw pt Mora Galeas per consultation request. Patient/Family Understanding of Illness and Goals of Care - Mora understands that she's in the hospital due to a broken leg. Distress and Loss - Mora was experiencing some distress due to being alone and away from her vicki community this Tuesday. 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 She is close with her , Dell, who is a manifold operator. Meaning, Beliefs, and Spirituality - Pt reports that her vicki is very important for her. She identifies as [employer] - [employer]. She experiences God's love and justina in her life, and this is a major support for her. Mora prioritizes reading scripture and feels moved by sermons that get to the root of the Gospel message. She welcomed prayer with me. Plan of Care - I and other chaplains remain available for further support. I informed pt on how to request a treasury representative should further support be needed. Karoline Martinez Restaurant Assistant Manager Splicer Machine Operator [facility] routine referrals *[id number] [facility] available 28/03 for emergent requests/referrals, either by paging the on-call treasury representative or by entering an HOWIE/STAT consult in [facility] (this will also page the on-call treasury representative). * Vira Fernandes PA-C - 04/10/2023 10:07 AM CDT Orthopedic Surgery Mora Michael Galeas 04/10/2023 Admit Date: 04/07/2023 POD: 2 Days Post-Op Procedure(s): LEFT TOTAL HIP ARTHROPLASTY REVISION AND OPEN REDUCTION INTERNAL FIXATION PROXIMAL FEMUR Patient resting comfortably in bed. Pain controlled this morning, improved from yesterday. Tolerating oral intake. Denies nausea or vomiting Denies chest pain or shortness of breath Temp: [97.3 ??F (36.3 ??C)-98.5 ??F (36.9 ??C)] 97.7 ??F (36.5 ??C) Pulse: [102-142] 107 Resp: [14-22] 16 BP: (104-128)/(54-67) 122/54 SpO2: [97 %-100 %] 99 % Alert and oriented Dressing is clean, dry, and intact. Minimal erythema of the surrounding skin. Bilateral calves are soft, non-tender. Left lower extremity is NVI. Sensation intact bilateral lower extremities Patient able to resist dorsi and plantar flexion bilaterally +Dp pulse Labs: Recent Labs Lab Test 04/10/23 0707 04/09/23 0739 04/08/23 0357 WBC 9.5 16.6* 6.4 HGB 7.6* 9.1* 9.6* PLT 417 618* 475* Recent Labs Lab Test 04/10/23 0707 04/09/23 0739 04/08/23 1815 INR 1.31* 1.18* 1.26* No lab results found. 1. PLAN: Lovenox starting POD1. May restart Coumadin for DVT prophylaxis. Mobilize with PT/OT with posterior hip precautions: No hip flexion past 90 deg. Flexion should be done with the hip in ER. No IR. Abduction pillow while in bed. WBAT LLE. Continue current pain regimen. Dressings: Keep intact. Change if >60% saturated or peeling off. Follow-up: 2 weeks post-op with Dr. Nina Ramirez team 2. Disposition Anticipate d/c to TCU when medically cleared and progressing in PT. Vira Fernandes PA-C * Fazal Ramirez MD - 04/09/2023 6:34 PM CDT Ortho Daily Progress Note Mora is doing well postoperatively. She has had some increased pain overnight but doing better today. She has been out of bed with physical therapy to the bathroom. She denies any fevers or chills. Nowound issues. No shortness of breath or chest pain. Her major concern is continued pain control. She reports she has tolerated NSAIDs such as naproxen and ibuprofen in the past. Temp: [96.9 ??F (36.1 ??C)-97.7 ??F (36.5 ??C)] 97.5 ??F (36.4 ??C) Pulse: [102-142] 131 Resp: [11-22] 20 BP: (107-145)/(46-66) 112/64 SpO2: [95 %-100 %] 97 % Hemoglobin Date Value Ref Range Status 04/09/2023 9.1 (L) 11.7 - 15.7 g/dL Final ] Alert, appropriate, and following commands Breathing easily without wheeze Left lower extremity: Dressing clean/dry/intact Sensations intact to light touch in the superficial peroneal, deep peroneal, tibial nerve distributions FHL, EHL, dorsiflexion, plantarflexion intact Dorsalis pedis pulse 2+, good capillary refill A/P - 62 year old female who is postoperative day 1 status post a left total hip arthroplasty revision for a proximal periprosthetic femur fracture. She has ambulated in her room with therapy. Continues to have some pain issues overnight but better controlled today. We discussed utilizing naproxen or ibuprofen. She has tolerated these medications in the past despite her Aspirin allergy. Postoperative radiographs were reviewed and reveal a stable implant. Fracture is reduced. Discussed postoperative instructions and follow-up instructions. All questions were answered. Ancef x 24 hours, cefadroxil 500mg BID x 7days 2. Lovenox starting POD 1, may restart Coumadin for DVT prophylaxis. 3. PACU x-rays. 4. Weightbearing as tolerated LLE 5. Physical therapy/occupational therapy. 6. Keep dressing on for 2 weeks. OK to shower. No submerging wound. 7. Hip precautions: No hip flexion pass 90 deg. Flexion should be done with the hip in ER. No IR. Abduction pillow while in bed 8. Discharge: Case management social work consult for placement Fazal Ramirez MD * Jonathan Linn MD - 04/09/2023 11:53 AM CDT Images from the original note were not included. [facility] Hospitalist Progress Note Jonathan Linn M.D., M.B.A. 04/09/2023 Reason for Stay/active problem list Recent left hip arthroplasty on March 25, 2023 Periprosthetic left hip fracture Assessment and Plan: Summary of Stay: Mora Galeas is a 62 year old female admitted on 04/07/2023. She history of rheumatoid arthritis, seizures, hypertension, anxiety and depression underwent recent left total hip replacement on March 25, 2023 for failed where the hardware was falling off left total hemiarthroplasty. She recovered from surgery right away and got discharged the next day to home. 2 days later on March 27 she was going up the stairs and heard a pop in her left hip. Since then she has been having significant left hip pain. Went to her primary orthopedic surgeon for postop follow-up and her x-ray showed periprosthetic fracture. And is advised to come into the emergency room to be admitted as is her primary surgeon Dr. Cj Zhou is on vacation. Problem List with Assessment and Plan: Recent left hip arthroplasty on March 25, 2023 Periprosthetic left hip fracture Admitted to the hospital under inpatient status Orthopedic surgery consultation obtained and she underwent Left revision total hip arthroplasty, stem explant and revision to long modular stem and Left proximal femur open reduction and internal fixation on 04/08 by Fazal Galeano MD -- currently having pain issues requiring pain medications . Continue pain control and postop care History of rheumatoid arthritis; Continue Plaquenil Hold methotrexate History of seizure disorder; Continue Keppra History of hypertension; --Blood pressure is stable , may resume home med lisinopril hydrochlorothiazide History of depression and anxiety Continue venlafaxine VTE Prophylaxis: Defer to ortho Code Status: Full Code Diet: Advance Diet as Tolerated: Regular Diet Adult Carranza Catheter: Not present Family updated today: No Disposition: TCU in few days Interval History (Subjective): Patient is seen and examined by me today and medical record reviewed.Overnight events noted and care discussed with nursing staff. Has been having a lot pain but better now Has no sob or cp Physical Exam: Last Vital Signs: BP 130/50 (BP Location: Right arm) Pulse 102 Temp 97.2 ??F (36.2 ??C) (Temporal) Resp 16 Ht1.727 m (5' 8) Wt 83.5 kg (184 lb 1.4 oz) SpO2 95% BMI 27.99 kg/m?? I/O last 3 completed shifts: In: 2639 [I.V.:2639] Out: 1750 [Urine:1750] Wt Readings from Last 5 Encounters: 04/07/23 83.5 kg (184 lb 1.4 oz) 03/25/23 69.9 kg (154 lb) 01/25/21 92.5 kg (204 lb) Constitutional: Alert Respiratory: Clear to auscultation bilaterally, no crackles or wheezing Cardiovascular: Regular rate and rhythm, normal S1 and S2, and no murmur noted Abdomen: Normal bowel sounds, soft, non-distended, non-tender Skin: No new rashes, no cyanosis, dry to touch Neuro: Non focal Extremities: No edema Other(s): All other systems: Negative Medications: All current medications were reviewed with changes reflected in problem list. Data: All new lab and imaging data was reviewed. Data reviewed today: I reviewed all new labs and imaging results over the last 24 hours. I personally reviewed Recent Labs Lab 04/09/23 0739 04/08/23 0357 04/07/23 1454 WBC 16.6* 6.4 7.3 HGB 9.1* 9.6* 11.0* HCT 28.3* 28.8* 33.7* MCV 101* 98 99 PLT 618* 475* 587* No results for input(s): CULT in the last 168 hours. Recent Labs Lab 04/09/23 0739 04/08/23 1536 04/08/23 0357 04/07/23 1454 NA 133* -- 136 135* POTASSIUM 4.3 -- 4.1 4.3 CHLORIDE 99 -- 103 100 CO2 24 -- 26 25 ANIONGAP 10 -- 7 10 GLC 149* -- 97 91 BUN 11.4 -- 12.2 11.9 CR 0.52 0.54 0.51 0.57 GFRESTIMATED >90 >90 >90 >90 BUBBA 8.8 -- 8.6* 9.3 Recent Labs Lab 04/09/23 0739 04/08/23 0357 04/07/23 1454 GLC 149* 97 91 Recent Labs Lab 04/09/23 0739 04/08/23 1815 04/08/23 0357 INR 1.18* 1.26* 1.39* No results for input(s): TROPONIN, TROPI, TROPR in the last 168 hours. Invalid input(s): TROP, TROPONINIES Recent Results (from the past 48 hour(s)) CT Hip Left w/o Contrast Narrative CT HIP LEFT WITHOUT CONTRAST 04/07/2023 4:06 PM INDICATION: Proximal femur fracture, evaluate fracture pattern. Hip pain. Fracture, known or rule out, or trauma. No fracture f/u or history of osteoarthritis. Hip x-ray result available. No known/automatically detected potential contraindications to imaging. COMPARISON: None. TECHNIQUE: Noncontrast. Axial, sagittal and coronal thin-section reconstruction. Dose reduction techniques were used. CONTRAST: None. FINDINGS: Status post left total hip arthroplasty. There is an acute periprosthetic fracture involving the intertrochanteric region with displacement of the lesser trochanteric fragment. There is surrounding soft tissue edema/hematoma. There is additional partially visualized hematoma in the soft tissues lateral to the left hip. There is diffuse osseous demineralization. There is cholelithiasis, partially visualized. Impression IMPRESSION: 1. Status post left total hip arthroplasty. There is an acute, displaced periprosthetic fracture of the intertrochanteric left femur, with adjacent soft tissue edema or hematoma. There is additional partially visualized hematoma in the soft tissues lateral to the left hip. 2. Diffuse osseous demineralization. 3. Cholelithiasis, partially visualized. JEROD YEAGER MD SYSTEM ID: [id number] XR Surgery RAAD L/T 5 Min Fluoro w Stills Narrative This exam was marked as non-reportable because it will not be read by a radiologist or a [place] non-radiologist provider. XR Pelvis w Hip Port Left 1 View Narrative XR PELVIS AND HIP PORTABLE LEFT 1 VIEW 04/08/2023 4:13 PM HISTORY: Status post Hip surgery COMPARISON: 03/25/2023 Impression IMPRESSION: Status post left total hip arthroplasty revision with longstem femoral component. Periprosthetic fracture of the proximal femur with improved alignment. Expected postsurgical soft tissue edema, subcutaneous emphysema, and skin pepe. Normal joint alignment. Osteopenia. POLO GARCIA MD SYSTEM ID: [id number] COVID Status: COVID-19 PCR Results 04/10/2021 09:25 02/25/2022 16:54 COVID-19 PCR Results COVID-19 Virus by PCR (External Result) Negative Negative Details This result is from an external source. COVID-19 Antibody Results, Testing for Immunity No data to display Disclaimer: This note consists of symbols derived from keyboarding, dictation and/or voice recognition software. As a result, there may be errors in the script that have gone undetected. Please consider this when interpreting information found in this chart. * Pooja Ardon OTR - 04/09/2023 11:12 AM CDT 04/09/23 1000 Appointment Info Signing Clinician's Name / Credentials (OT) [facility] Comments (OT) posterior hip precautions; WBAT LLE Living Environment People in Home spouse Current Living Arrangements house Home Accessibility stairs to enter home;stairs within home Number of Stairs, Main Entrance 1 Number of Stairs, Within Home, Primary eight Stair Railings, Within Home, Primary railings safe and in good condition Transportation Anticipated family or friend will provide;car, drives self Living Environment Comments walk in shower with built in seat (low and small); SH toilet with grab bars next to Self-Care Equipment Currently Used at Home walker, rolling;grab bar, toilet Fall history within last six months no Activity/Exercise/Self-Care Comment At baseline, pt was indep with ADLs/IADLs. General Information Onset of Illness/Injury or Date of Surgery 04/07/23 Referring Physician Rohini Beal, TEENA Patient/Family Therapy Goal Statement (OT) d/c to TCU Additional Occupational Profile Info/Pertinent History of Current Problem per chart: patient is a 62 year old female admitted on 04/07/2023. She history of rheumatoid arthritis, seizures, hypertension,anxiety and depression underwent recent left total hip replacement on March 25, 2023 for failed where the hardware was falling off left total hemiarthroplasty. She recovered from surgery right away and got discharged the next day to home. 2 days later on March 27 she was going up the stairs and hearda pop in her left hip. Since then she has been having signifi//cant left hip pain. Underwent L MICHELLE revision 04/08/23. Existing Precautions/Restrictions fall;no hip IR;no hip ADD past midline;90 degree hip flexion;weight bearing Left Lower Extremity (Weight-bearing Status) weight-bearing as tolerated (WBAT) Cognitive Status Examination Cognitive Status Comments no cog impairments noted Pain Assessment Patient Currently in Pain Yes, see Vital Sign flowsheet Bed Mobility Bed Mobility supine-sit;sit-supine Supine-Sit Baldwin (Bed Mobility) minimum assist (75% patient effort) Sit-Supine Baldwin (Bed Mobility) minimum assist (75% patient effort) Transfers Transfer Comments pt declines transfer due to fatigue and dizziness Clinical Impression Criteria for Skilled Therapeutic Interventions Met (OT) Yes, treatment indicated OT Diagnosis decreased ADL OT Problem List-Impairments impacting ADL problems related to;activity tolerance impaired;balance;pain;post-surgical precautions Assessment of Occupational Performance 5 or more Performance Deficits Identified Performance Deficits dressing, toileting, showering, functional transfers and IADLs Planned Therapy Interventions (OT) ADL retraining;IADL retraining;strengthening;progressive activity/exercise;home program guidelines;risk factor education;transfer training Clinical Decision Making Complexity (OT) low complexity Risk & Benefits of therapy have been explained evaluation/treatment results reviewed;care plan/treatment goals reviewed;risks/benefits reviewed;current/potential barriers reviewed;participants voiced agreement with care plan;participants included;patient Clinical Impression Comments Pt is below baseline and would benefit from ongoing OT. OT Total Evaluation Time OT Elizabeth, Low Complexity Minutes (87916) 10 OT Goals Therapy Frequency (OT) 5 times/wk OT Predicted Duration/Target Date for Goal Attainment 04/16/23 OT Goals Hygiene/Grooming;Upper Body Dressing;Lower Body Dressing;Toilet Transfer/Toileting;OT Goal1 OT: Hygiene/Grooming supervision/stand-by assist OT: Upper Body Dressing Supervision/stand-by assist OT: Lower Body Dressing Supervision/stand-by assist OT: Toilet Transfer/Toileting Supervision/stand-by assist OT: Goal 1 Pt will be able to verbalize all hip precautions. Interventions Interventions Quick Adds Self-Care/Home Management Self-Care/Home Management Self-Care/Home Mgmt/ADL, Compensatory, Meal Prep Minutes (63079) 22 Treatment Detail/Skilled Intervention Pt is educated on hip precautions and provided handout. Pt ismin A with bed mobility from supine <>sit with assist to move LLE. Once sitting EOB, pt reports dizziness. Pt reports she feels too weak to ambualte to bathroom to complete grooming/hygiene. BP114/54. Pt is set up A for grooming/hygiene sitting EOB. Pt transfers back into bed. Pt is left with call light in reach with bed alarm on. OT Discharge Planning OT Plan TB dressing; toileting; grooming/hygiene at sink OT Discharge Recommendation (DC Rec) Transitional Care Facility OT Rationale for DC Rec Pt is significantly below baseline due to weakness and post surgical precautions. Pt would benefit from ongoing skilled OT during IP setting and TCU to maximize indep and safety prior to returning home. OT Brief overview of current status min A bed mobility; set up a grooming/hygiene while seated Total Session Time Timed Code Treatment Minutes 22 Total Session Time (sum of timed and untimed services) 32 * Andrew Brink, PT - 04/09/2023 10:09 AM CDT 04/09/23 0972 Appointment Info Signing Clinician's Name / Credentials (PT) Andrew Brink DPT Living Environment People in Home spouse Current Living Arrangements house Living Environment Comments Pt lives in 2 story home 2 [address], flight to main level Self-Care Usual Activity Tolerance moderate Current Activity Tolerance fair Equipment Currently Used at Home walker, rolling Fall history within last six months no Activity/Exercise/Self-Care Comment Pt mod I with SEC prior to surgery, chronic pain per pt General Information Onset of Illness/Injury or Date of Surgery 04/07/23 Referring Physician Rohini Beal, TEENA Patient/Family Therapy Goals Statement (PT) Patient would like to go to TCU before returning home Pertinent History of Current Problem (include personal factors and/or comorbidities that impact theC) Per chart patient is a 62 year old female admitted on 04/07/2023. She history of rheumatoid arthritis, seizures, hypertension, anxiety and depression underwent recent left total hip replacement onJuly 2022 for failed where the hardware was falling off left total hemiarthroplasty. She recovered from surgery right away and got discharged the next day to home. 2 days later on March 27 she wasgoing up the stairs and heard a pop in her left hip. Since then she has been having signifi//cant left hip pain. Underwent L MICHELLE revision 04/08/23. Existing Precautions/Restrictions fall;no hip IR;no hip ADD past midline;90 degree hip flexion Weight-Bearing Status - LLE weight-bearing as tolerated Weight-Bearing Status - RLE weight-bearing as tolerated Cognition Affect/Mental Status (Cognition) WNL Orientation Status (Cognition) oriented x 4 Follows Commands (Cognition) WNL Pain Assessment Patient Currently in Pain Yes, see Vital Sign flowsheet Posture Posture Forward head position Range of Motion (ROM) Range of Motion ROM is WFL ROM Comment BLE WFL Strength (Manual Muscle Testing) Strength Comments Gross functional weakness with OOB mobility Bed Mobility Comment, (Bed Mobility) Supine to sitting EOB with Min A x 1, Sit to supine with CGA x 1 Transfers Comment, (Transfers) STS to FWW with CGA x 1 from bed Gait/Stairs (Locomotion) Distance in Feet 5' eval FWW CGA Comment, (Gait/Stairs) CGA FWW, short step length, antalgic gait pattern Sensory Examination Sensory Perception WFL Coordination Coordination no deficits were identified Muscle Tone Muscle Tone no deficits were identified Clinical Impression Criteria for Skilled Therapeutic Intervention Yes, treatment indicated PT Diagnosis (PT) Impaired functional mobility Influenced by the following impairments Impaired functional strength, activity tolerance, gait, andpain management Functional limitations due to impairments Impaired functional mobility Clinical Presentation (PT Evaluation Complexity) Stable/Uncomplicated Clinical Presentation Rationale clinical judgement Clinical Decision Making (Complexity) low complexity Planned Therapy Interventions (PT) balance training;bed mobility training;cryotherapy;gait training;home exercise program;patient/family education;stair training;strengthening;transfer training Risk & Benefits of therapy have been explained evaluation/treatment results reviewed;risks/benefits reviewed;care plan/treatment goals reviewed;patient PT Total Evaluation Time PT Eval, Low Complexity Minutes (75020) 10 Physical Therapy Goals PT Frequency Daily PT Predicted Duration/Target Date for Goal Attainment 04/12/23 PT Goals Transfers;Bed Mobility;Gait PT: Bed Mobility Supine to/from sit;Rolling;Modified independent PT: Transfers Supervision/stand-by assist;Sit to/from stand;Modified independent PT: Gait Supervision/stand-by assist;Greater than 200 feet;Rolling walker;Within precautions Therapeutic Procedure/Exercise Ther. Procedure: strength, endurance, ROM, flexibillity Minutes (12497) 10 Treatment Detail/Skilled Intervention Pt engaged in 10 reps LLE AP, QS, heel slide, SAQ for improved bld flow and ROM prior to OOBmobility tolerated well Symptoms Noted During/After Treatment fatigue;increased pain Therapeutic Activity Therapeutic Activities: dynamic activities to improve functional performance Minutes (35043) 10 Treatment Detail/Skilled Intervention Pt supine upon arrival. Reviewed hip precautions, maintained well during session. Supine > sitting pt reporting needs help but encouraged to perform and INDlyas possible, able to mobilize BLE to EOB with Min A x 1 for LLE movement. Good sitting balance. STSx 3 from varying surface hts, required CGA from standard chair ht with use of FWW. Assisted into BRwith use of FWW and CGA. CGA to doff/key garments. Inc reliance on UE support to stand from toiletwith use of grab bar. Stand > sit recliner end of session with cues for improved postioning. Pt able to scoot posteriorly with use of UE support. Pillows placed appropriately needs in reach alarm on BLE elevated Gait Training Gait Training Minutes (45462) 15 Symptoms Noted During/After Treatment (Gait Training) dizziness Treatment Detail/Skilled Intervention Focus on gait and stair training. Pt ambualted 35' with FWW, does have difficulty with progressing towards equal step length, cues provided for improved posture,RLE heel strike, equal stance time. No overt LOB. Did c/o of feeling whoozy BP stable when assessed. PT Discharge Planning PT Plan Progress ambulation, OOB mobility, transfers PT Discharge Recommendation (DC Rec) Transitional Care Facility PT Rationale for DC Rec Patient is below baseline level with functional mobility. Unable to safely perform functional mobility needed to independently perform household mobility. Would benefit from short term rehab stay. PT Brief overview of current status A x 1 with FWW Total Session Time Timed Code Treatment Minutes 35 Total Session Time (sum of timed and untimed services) 45 * Vira Fernandes PA-C - 04/09/2023 9:39 AM CDT Orthopedic Surgery Mora Galeas 04/09/2023 Admit Date: 04/07/2023 POD: 1 Day Post-Op Procedure(s): LEFT TOTAL HIP ARTHROPLASTY REVISION AND OPEN REDUCTION INTERNAL FIXATION PROXIMAL FEMUR Patient resting in bed. Patient reports consistent severe pain throughout night and this morning. Tolerating oral intake. Denies nausea or vomiting Denies chest pain or shortness of breath Temp: [96.9 ??F (36.1 ??C)-97.7 ??F (36.5 ??C)] 97.2 ??F (36.2 ??C) Pulse: [102-110] 102 Resp: [11-23] 16 BP: (112-145)/(46-78) 130/50 SpO2: [88 %-100 %] 95 % Alert and oriented Dressing is clean, dry, and intact. Minimal erythema of the surrounding skin. Bilateral calves are soft, non-tender. Left lower extremity is NVI. Sensation intact bilateral lower extremities Patient able to resist dorsi and plantar flexion bilaterally +Dp pulse Labs: Recent Labs Lab Test 04/09/23 0739 04/08/23 0357 04/07/23 1454 WBC 16.6* 6.4 7.3 HGB 9.1* 9.6* 11.0* PLT 618* 475* 587* Recent Labs Lab Test 04/09/23 0739 04/08/23 1815 04/08/23 0357 INR 1.18* 1.26* 1.39* No lab results found. 1. PLAN: Lovenox starting POD1. May restart Coumadin for DVT prophylaxis. Mobilize with PT/OT with posterior hip precautions: No hip flexion past 90 deg. Flexion should be done with the hip in ER. No IR. Abduction pillow while in bed. WBAT LLE. Patient having significant amount of pain overnight and this morning. Will hold oral oxycodone and switch to PO Diluadid for severe pain. Will order pain management consult to evaluate patient on Tuesday. Dressings: Keep intact. Change if >60% saturated or peeling off. Follow-up: 2 weeks post-op with Fazal Ramirez team 2. Disposition Anticipate d/c to TCU when medically cleared and progressing in PT. Vira Fernandes PA-C * Nena Aranda RN - 04/08/2023 6:21 PM CDT Arrived to room ( 622) from PACU at (1800 ) via bed, alert and oriented x 4, droswy, dressing CDI, CMS intact, IV patent and infusing, rates pain (10 )/10, SCD's on BLE. Jose ice chips well. Frequent VS started. * Jonathan Linn MD - 04/08/2023 4:40 PM CDT Images from the original note were not included. [facility] Hospitalist Progress Note Jonathan Linn M.D., M.B.A. 04/08/2023 Reason for Stay/active problem list Recent left hip arthroplasty on March 25, 2023 Periprosthetic left hip fracture Assessment and Plan: Summary of Stay: Mora Galeas is a 62 year old female admitted on 04/07/2023. She history of rheumatoid arthritis, seizures, hypertension, anxiety and depression underwent recent left total hip replacement on March 25, 2023 for failed where the hardware was falling off left total hemiarthroplasty. She recovered from surgery right away and got discharged the next day to home. 2 days later on March 27 she was going up the stairs and heard a pop in her left hip. Since then she has been having significant left hip pain. Went to her primary orthopedic surgeon for postop follow-up and her x-ray showed periprosthetic fracture. And is advised to come into the emergency room to be admitted as is her primary surgeon Dr. Cj Zhou is on vacation. Problem List with Assessment and Plan: Recent left hip arthroplasty on March 25, 2023 Periprosthetic left hip fracture Admitted to the hospital under inpatient status Orthopedic surgery consultation obtained and she underwent Left revision total hip arthroplasty, stem explant and revision to long modular stem and Left proximal femur open reduction and internal fixation on 04/08 by Fazal Galeano MD -- currently stable postop , ortho input appreciated and plan to continue post op care History of rheumatoid arthritis; Continue Plaquenil Hold methotrexate History of seizure disorder; Continue Keppra History of hypertension; Blood pressure is currently soft and postop , continue to hold her low-dose lisinopril hydrochlorothiazide for now History of depression and anxiety Continue venlafaxine VTE Prophylaxis: Defer to primary service Code Status: Full Code Diet: Advance Diet as Tolerated: Regular Diet Adult Carranza Catheter: Not present Family updated today: No Disposition: TCU in few days Interval History (Subjective): Patient is seen and examined by me today and medical record reviewed.Overnight events noted and care discussed with nursing staff. Care assumed and patient was seen in PACU Sedated postop Stable Physical Exam: Last Vital Signs: BP 117/70 Pulse 106 Temp 97.4 ??F (36.3 ??C) (Temporal) Resp 17 Ht 1.727 m (5' 8) Wt 83.5 kg (184 lb 1.4 oz) SpO2 94% BMI 27.99 kg/m?? I/O last 3 completed shifts: In: 2038 [I.V.:2038] Out: 800 [Urine:800] Wt Readings from Last 5 Encounters: 04/07/23 83.5 kg (184 lb 1.4 oz) 03/25/23 69.9 kg (154 lb) 01/25/21 92.5 kg (204 lb) Constitutional: Sedated Respiratory: Clear to auscultation bilaterally, no crackles or wheezing Cardiovascular: Regular rate and rhythm, normal S1 and S2, and no murmur noted Abdomen: Normal bowel sounds, soft, non-distended, non-tender Skin: No new rashes, no cyanosis, dry to touch Neuro: Sedated Extremities: No edema Other(s): All other systems: Negative Medications: All current medications were reviewed with changes reflected in problem list. Data: All new lab and imaging data was reviewed. Data reviewed today: I reviewed all new labs and imaging results over the last 24 hours. I personally reviewed Recent Labs Lab 04/08/23 0357 04/07/23 1454 WBC 6.4 7.3 HGB 9.6* 11.0* HCT 28.8* 33.7* MCV 98 99 PLT 475* 587* No results for input(s): CULT in the last 168 hours. Recent Labs Lab 04/08/23 0357 04/07/23 1454 NA 136 135* POTASSIUM 4.1 4.3 CHLORIDE 103 100 CO2 26 25 ANIONGAP 7 10 GLC 97 91 BUN 12.2 11.9 CR 0.51 0.57 GFRESTIMATED >90 >90 BUBBA 8.6* 9.3 Recent Labs Lab 04/08/23 0357 04/07/23 1454 GLC 97 91 Recent Labs Lab 04/08/23 0357 04/07/23 1454 INR 1.39* 1.40* No results for input(s): TROPONIN, TROPI, TROPR in the last 168 hours. Invalid input(s): TROP, TROPONINIES Recent Results (from the past 48 hour(s)) CT Hip Left w/o Contrast Narrative CT HIP LEFT WITHOUT CONTRAST 04/07/2023 4:06 PM INDICATION: Proximal femur fracture, evaluate fracture pattern. Hip pain. Fracture, known or rule out, or trauma. No fracture f/u or history of osteoarthritis. Hip x-ray result available. No known/automatically detected potential contraindications to imaging. COMPARISON: None. TECHNIQUE: Noncontrast. Axial, sagittal and coronal thin-section reconstruction. Dose reduction techniques were used. CONTRAST: None. FINDINGS: Status post left total hip arthroplasty. There is an acute periprosthetic fracture involving the intertrochanteric region with displacement of the lesser trochanteric fragment. There is surrounding soft tissue edema/hematoma. There is additional partially visualized hematoma in the soft tissues lateral to the left hip. There is diffuse osseous demineralization. There is cholelithiasis, partially visualized. Impression IMPRESSION: 1. Status post left total hip arthroplasty. There is an acute, displaced periprosthetic fracture of the intertrochanteric left femur, with adjacent soft tissue edema or hematoma. There is additional partially visualized hematoma in the soft tissues lateral to the left hip. 2. Diffuse osseous demineralization. 3. Cholelithiasis, partially visualized. JEROD YEAGER MD SYSTEM ID: [id number] XR Surgery RAAD L/T 5 Min Fluoro w Stills Narrative This exam was marked as non-reportable because it will not be read by a radiologist or a [place] non-radiologist provider. XR Pelvis w Hip Port Left 1 View Narrative XR PELVIS AND HIP PORTABLE LEFT 1 VIEW 04/08/2023 4:13 PM HISTORY: Status post Hip surgery COMPARISON: 03/25/2023 Impression IMPRESSION: Status post left total hip arthroplasty revision with longstem femoral component. Periprosthetic fracture of the proximal femur with improved alignment. Expected postsurgical soft tissue edema, subcutaneous emphysema, and skin pepe. Normal joint alignment. Osteopenia. POLO GARCIA MD SYSTEM ID: [id number] COVID Status: COVID-19 PCR Results 04/10/2021 09:25 02/25/2022 16:54 COVID-19 PCR Results COVID-19 Virus by PCR (External Result) Negative Negative Details This result is from an external source. COVID-19 Antibody Results, Testing for Immunity No data to display Disclaimer: This note consists of symbols derived from keyboarding, dictation and/or voice recognition software. As a result, there may be errors in the script that have gone undetected. Please consider this when interpreting information found in this chart. documented in this encounter H&P Notes * Deyanira Locke MD - 04/07/2023 3:10 PM CDT [facility] History and Physical - Hospitalist Service Date of Admission: 04/07/2023 Assessment & Plan Mora Galeas is a 62 year old female admitted on 04/07/2023. She history of rheumatoid arthritis, seizures, hypertension, anxiety and depression underwent recent left total hip replacement on March 25, 2023 for failed where the hardware was falling off left total hemiarthroplasty. She recovered from surgery right away and got discharged the next day to home. 2 days later on March 27 she was going up the stairs and heard a pop in her left hip. Since then she has been having significant left hip pain.Went to her primary orthopedic surgeon for postop follow-up and her x-ray showed periprosthetic fracture. And is advised to come into the emergency room to be admitted as is her primary surgeon Dr. Cj Zhou is on vacation. She was started on Coumadin postoperatively for DVT prophylaxis after hip surgery. She did not take her Coumadin today. Her INR is at 1.4 today. She otherwise denies any chest pain or shortness of breath no nausea vomiting. her left hip pain is currently well controlled with the pain medication given in the ED. orthopedic surgery was contacted by the ED provider and they are planning on surgery tomorrow CT scan of the left hip ordered Recent left hip arthroplasty on March 25, 2023 Periprosthetic left hip fracture Admitted to the hospital under inpatient status Hold Coumadin N.p.o. after midnight Bedrest until surgery Orthopedic surgery consultation will be requested IV fluids normal saline at 100 mL/h ordered Patient has allergy to aspirin which causes anaphylaxis Pain control with IV Dilaudid and oral oxycodone and as needed Atarax History of rheumatoid arthritis; Continue Plaquenil Hold methotrexate Patient does not take prednisone that often so there is no need for a stress dose steroids currently unless patient is hypotensive History of seizure disorder; Continue Keppra History of hypertension; Blood pressure is currently well controlled systolics in the 110s Hold her low-dose lisinopril hydrochlorothiazide for now History of depression and anxiety Continue venlafaxine Diet: Regular diet for now, n.p.o. after midnight DVT Prophylaxis: Pneumatic Compression Devices Carranza Catheter: Not present Lines: None Cardiac Monitoring: None Code Status: Full code discussed with patient on admission Clinically Significant Risk Factors Present on Admission # Drug Induced Coagulation Defect: home medication list includes an anticoagulant medication # Hypertension: Home medication list includes antihypertensive(s) Disposition Plan Deyanira Locke MD Hospitalist Service [facility] Securely message with [employer] (more info) Text page via [facility] Paging/Directory Chief Complaint Left hip pain in the left hip periprosthetic fracture with recent left total arthroplasty on 25 March History is obtained from the patient, discussion with ED provider, review of medical records History of Present Illness Mora Galeas is a 62 year old female with history of rheumatoid arthritis, seizures, hypertension, anxiety and depression underwent recent left total hip replacement on March 25, 2023 for failed where the hardware was falling off left total hemiarthroplasty. She recovered from surgery right away and got discharged the next day to home. 2 days later on March 27 she was going up the stairs and heard apop in her left hip. Since then she has been having significant left hip pain. Went to her primary orthopedic surgeon for postop follow-up and her x-ray showed periprosthetic fracture. And is advisedto come into the emergency room to be admitted as is her primary surgeon Dr. Cj Zhou is on vacation. She was started on Coumadin postoperatively for DVT prophylaxis after hip surgery. She did not take her Coumadin today. Her INR is at 1.4 today. She otherwise denies any chest pain or shortnessof breath no nausea vomiting. her left hip pain is currently well controlled with the pain medication given in the ED. orthopedic surgery was contacted by the ED provider and they are planning on surgery tomorrow CT scan of the left hip ordered. As per the patient she was also having significant discomfort and difficulty with sitting on her toilet seat which was very low at home. She is only on prednisone 5 mg p.o. daily as needed but she does not take it regularly only takes it very rarely. Her CBC showed WC count of 7.3 hemoglobin at 11 platelet count at 587 BMP is currently pending will be reviewed INR at 1.4 PTT is normal at 33. Patient is allergic to aspirin with which causes anaphylaxis Past Medical History Past Medical History: Diagnosis Date ADHD (attention deficit hyperactivity disorder) Anemia Anxiety and depression Hypertension RA (rheumatoid arthritis) (H) Rheumatoid arthritis (H) Seizure (H) Thoracic compression fracture (H) multiple thoracic and lumbar compression fractures Past Surgical History Past Surgical History: Procedure Laterality Date ARTHROPLASTY HIP Left 03/25/2023 Procedure: left total hip arthroplasty with removal of hardware; Surgeon: Cj Chen MD; Location: [facility] OR CARPAL TUNNEL RELEASE RT/LT Bilateral SUPPLY TECHNICIAN SURGERY c section x 3 OPEN REDUCTION INTERNAL FIXATION HIP NAILING Left 01/25/2021 Procedure: Operative fixation of left femoral neck fracture with cannulated screws; Surgeon: Cj Chen MD; Location: [facility] OR ORTHOPEDIC SURGERY right middle finger surgery TOTAL KNEE ARTHROPLASTY Left 04/2021 TUBAL LIGATION Prior to Admission Medications Prior to Admission Medications Prescriptions Last Dose Informant Patient Reported? Taking? acetaminophen (TYLENOL) 325 MG tablet No No Sig: Take 2 tablets (650 mg) by mouth every 4 hours as needed for other (mild pain) etanercept (ENBREL) 50 MG/ML injection Self Yes No Sig: Inject 50 mg Subcutaneous once a week Wednesdays folic acid (FOLVITE) 1 MG tablet Self Yes No Sig: Take 1 mg by mouth daily hydrOXYzine (ATARAX) 25 MG tablet No No Sig: Take 1 tablet (25 mg) by mouth every 6 hours as needed for itching or anxiety (with pain, moderate pain) hydroxychloroquine (PLAQUENIL) 200 MG tablet Self Yes No Sig: Take 2 tablets by mouth every morning (2 x 200 mg = 400 mg) levETIRAcetam (KEPPRA) 500 MG tablet Self Yes No Sig: Take 2 tablets by mouth 2 times daily (2 x 500 mg = 1,000 mg) lisinopril-hydrochlorothiazide (ZESTORETIC) 10-12.5 MG tablet Self Yes No Sig: Take 1 tablet by mouth daily methotrexate 2.5 MG tablet Self Yes No Sig: Take 10 tablets by mouth every 7 days Wednesdays (10 x 2.5 mg = 25 mg) oxyCODONE (ROXICODONE) 5 MG tablet No No Sig: Take 1-2 tablets (5-10 mg) by mouth every 4 hours as needed for moderate to severe pain predniSONE (DELTASONE) 5 MG tablet Self Yes No Sig: Take 1 tablet by mouth as needed senna-docusate (SENOKOT-S/PERICOLACE) 8.6-50 MG tablet No No Sig: Take 1 tablet by mouth 2 times daily venlafaxine (EFFEXOR) 75 MG tablet Self Yes No Sig: Take 3 tablets by mouth 2 times daily (3 x 75 mg = 225 mg) warfarin ANTICOAGULANT (COUMADIN) 2.5 MG tablet No No Sig: Take 2 tablets (5 mg) by mouth daily Facility-Administered Medications: None Review of Systems The 10 point Review of Systems is negative other than noted in the HPI Social History I have reviewed this patient's social history and updated it with pertinent information if needed. Social History Tobacco Use Smoking status: Never Smokeless tobacco: Never Substance Use Topics Alcohol use: Yes Comment: 2 beers nightly She drinks 2-3 beers per night she is lives with her in [facility] Family History No significant family history, including no history of: Both parents are mother of dementia father of colon cancer issues Allergies Allergies Allergen Reactions Aspirin Anaphylaxis Physical Exam Vital Signs: Temp: 97.8 ??F (36.6 ??C) Temp src: Temporal BP: 115/64 Pulse: 96 Resp: 16 SpO2: 98 % O2 Device: None (Room air) Weight: 0 lbs 0 oz General Appearance: Alert awake, pleasant female lying comfortably in bed, not in acute distress Eyes: No scleral icterus or conjunctival injection noted HEENT: Head is atraumatic normocephalic neck is supple, oropharyngeal exam showed moist mucous membranes Respiratory: Clear to auscultation bilaterally, no rales rhonchi or wheezing Cardiovascular: Normal rate rhythm regular, no murmurs rubs or gallops GI: Soft, nontender, nondistended, bowel sounds positive no guarding rigidity or rebound Skin: Warm and dry Musculoskeletal: Left lower extremity is shortened and externally rotated. No clubbing cyanosis or edema of the lower extremities Neurologic: Alert oriented x3. Neurological testing is not done due to the hip fracture Psychiatric: Mood and affect are normal Medical Decision Making 75 MINUTES SPENT BY ME on the date of service doing chart review, history, exam, documentation & further activities per the note. Data I have personally reviewed the following data over the past 24 hrs: 7.3 \ 11.0 (L) / 587 (H) 135 (L) 100 11.9 / 91 4.3 25 0.57 \ INR: 1.40 (H) PTT: 33 D-dimer: N/A Fibrinogen: N/A Imaging results reviewed over the past 24 hrs: No results found for this or any previous visit (from the past 24 hour(s)). documented in this encounter Consult Notes * Caron Alba APRN [employer] MECH[employer]IC - 04/11/2023 5:30 PM CDTAssociated Order(s): PAIN MANAGEMENT ADULT IP CONSULT Images from the original note were not included. [facility] Acute Pain Management Consultation Date of Admission: 04/07/2023 Assessment & Plan Text Page Pain Via [employer] Date of Admission: 04/07/2023 Date of Consult (When I saw the patient): 04/11/23 Physician/service requesting consult: Orthopedics DACIA Fernandes PA-C Reason for consult: Acute Pain Management Assessment/Plan: Mora Galeas is a 62 year old female who was admitted on 04/07/2023 after x-ray demonstrated periprosthetic fracture of left total hip replacement (03/25/2023). Our team was asked to see the patient for left hip pain following 04/08/2023 left total hip arthroplasty per Fazal Ramirez MD. 3 Days Post-Op. History of seropositive rheumatoid arthritis, hypertension, seizures, anxiety and depression. Patient indicates she has had little to no pain. She is tearful as she misses her and dog (a lab mix) at home. Pain began when she felt a pop on March 27 and subsequent post operative orthopedic follow-up with surgery she was found to have x-ray demonstrating periprosthetic fracture of total left hip replacement which was performed on 03/25/2023 by Cj Zhou MD who is currently on vacation.Describes pain as not that bad 0/10. The patient denies any opiate side effects at this time. Thepatient does not smoke and does not have a chemical dependency history. Opioid tolerance is naive. Opioid Induced Respiratory Depression Risk Assessment: (Low 0-1; Moderate 2-4; or High >4 or >/= 3 if two of the risk factors are age > 60 and opioid naive) due to the following risk factors: KEARA, COPD/Asthma/pulmonary disease, CHF, renal dysfunction, hepatic dysfunction, Obesity, Smoker, Age>60, >2 opioid therapies, concomitant TIRE SH[employer] MECHANIC depressants, opioid naive status, or post surgical ? Chronic opioid use = 22 mg MME, opioid used this past 24 hours 2 mg oral Hydromorphone (8 MME). PLAN: 1) Pain is consistent with successful postoperative left hip arthroplasty revision. Treatment plan includes multimodal pain approach, medications as listed below, reviewed. Discharge medications, advised keeping track of doses, educated on tapering off as pain improves, watch for constipation and stool softeners, no driving or alcohol with opioids, store medications in a safe place, advised to take no more than the prescribed dose as increased doses may cause respiratory depression or . Patient is understanding of the plan. All questions and concerns addressed to patient's satisfaction. 2) Multimodal Medication Therapy - Topical: Avoid use due to surgical site - N-SAIDS: Naproxen 250 mg BID - Muscle Relaxants: None indicated - Adjuvants: Acetaminophen 650 mg every 4 hours PRN - Antidepressants/anxiolytics: Venlafaxine 225 mg BID Opioids: Hydromorphone 1 mg every 3 hours PRN IV Pain medication: No longer needed 3) Non-medication interventions- Ice, Heat, physical therapy, distraction, aroma therapy and distraction with talking about her rescued dog a lab mix 4) Constipation Prophylaxis- Senna-Docusate 1 tablets BID and carmen lax daily. Continue to monitor. 5) Follow up -Acute pain team will sign off, as patient is doing well from a pain perspective and hopes to dismiss to home as soon as possible . -Opioid prescriber has been DACIA Garcia who works with Orthopedic surgeon Dr. Cj Chen. PCP is Case Gao -Discharge Recommendations - We recommend prescribing the following at the time of discharge: Hydromorphone 1 mg every 4 hours PRN Disposition: Home with support of her Prescribing at discharge: Orthopedics History of Present Illness (HPI): Mora Galeas is a 62 year old female admitted 04/07/2023 after x-ray demonstrated periprosthetic fracture of left total hip replacement (03/25/[address] jC Chen). Our team was asked to see the patient for left hip pain following 04/08/2023 left total hip arthroplasty per Fazal Ramirez MD. The patient reports pain that is resolved and rated at 0/10 and goal is 0/10. The patient has a past medical history of seropositive rheumatoid arthritis, hypertension, seizures, anxiety and depression. Prior to her 03/25/2023 orthopedic surgery she had rarely taken opiates. Per [place] CAD ADMINISTRATOR review Oxycodone and Tramadol. The patient is opioid naive. She denies opioid induced side effects including sedation, r espiratory suppression, nausea, and constipation. The patient does not have a history of KEARA, and does not have substance use disorder. Discussed multimodal interventions, interventions other than systemic pharmacologic treatments for chronic pain including: distraction by talking about her dog. Review of medical record/Summary of labs and care everywhere. Last UDS - none [place] CAD ADMINISTRATOR-pulled from system on 04/11/23. Last refill on 04/06/2023. Recent opiate analgesic use with first prescription 03/21/2023. Medical History has a past medical history of ADHD (attention deficit hyperactivity disorder), Anemia, Anxiety and depression, Hypertension, RA (rheumatoid arthritis) (H), Rheumatoid arthritis (H), Seizure (H), and Thoracic compression fracture (H). She has no past medical history of Complication of anesthesia, COPD (chronic obstructive pulmonary disease) (H), Diabetes (H), Malignant hyperthermia, PONV (postoperative nausea and vomiting), or Sleep apnea. Surgical History has a past surgical history that includes orthopedic surgery; Open reduction internal fixation hip nailing (Left, 01/25/2021); carpal tunnel release rt/lt (Bilateral); SUPPLY TECHNICIAN surgery; Total Knee Arthroplasty (Left, 04/2021); tubal ligation; and Arthroplasty hip (Left, 03/25/2023). Allergies Allergies Allergen Reactions Aspirin Anaphylaxis Current Home Medications Prior to Admission medications Medication Sig Start Date End Date Taking? Authorizing Provider acetaminophen (TYLENOL) 325 MG tablet Take 3 tablets (975 mg) by mouth every 8 hours as needed for mild pain 04/10/23 Yes Vira Fernandes PA-C etanercept (ENBREL) 50 MG/ML injection Inject 50 mg Subcutaneous once a week Wednesdays Yes Reported, Patient folic acid (FOLVITE) 1 MG tablet Take 1 mg by mouth daily Yes Reported, Patient HYDROmorphone (DILAUDID) 2 MG tablet Take 1 tablet (2 mg) by mouth every 3 hours as needed for severe pain 04/10/23 Yes Vira Fernandes PA-C hydroxychloroquine (PLAQUENIL) 200 MG tablet Take 2 tablets by mouth every morning (2 x 200 mg = 400 mg) Yes Reported, Patient hydrOXYzine (ATARAX) 25 MG tablet Take 1 tablet (25 mg) by mouth every 6 hours as needed for itching or anxiety (with pain, moderate pain) 03/25/23 Yes Cj Chen MD levETIRAcetam (KEPPRA) 500 MG tablet Take 2 tablets by mouth 2 times daily (2 x 500 mg = 1,000 mg) Yes Reported, Patient lisinopril-hydrochlorothiazide (ZESTORETIC) 10-12.5 MG tablet Take 1 tablet by mouth daily Yes Reported, Patient methotrexate 2.5 MG tablet Take 10 tablets by mouth every 7 days Wednesdays (10 x 2.5 mg = 25 mg) Yes Reported, Patient predniSONE (DELTASONE) 5 MG tablet Take 1 tablet by mouth as needed Yes Reported, Patient senna-docusate (SENOKOT-S/PERICOLACE) 8.6-50 MG tablet Take 1 tablet by mouth 2 times daily as needed for constipation 04/11/23 Yes Trini Torres PA-C venlafaxine (EFFEXOR) 75 MG tablet Take 3 tablets by mouth 2 times daily (3 x 75 mg = 225 mg) Yes Reported, Patient warfarin ANTICOAGULANT (COUMADIN) 2.5 MG tablet Take 2.5 mg by mouth daily Yes Unknown, Entered By History Social History Reviewed, and she reports that she has never smoked. She has never used smokeless tobacco. She reports current alcohol use. Family History- Reviewed care everywhere to find family history non contributory. Nothing relevant to pain consult Reviewed, and family history is not on file. Review of Systems Complete ROS reviewed, unless noted , all other systems reviewed (with patient) and all others found to be negative. Objective: Vitals: B/P: 119/52, T: 98, P: 91, R: 14 Weight: 184 lbs 1.35 oz Body mass index is 27.99 kg/m??. Physical Exam: General Appearance: Alert, cooperative, no distress, appears stated age. Patient is tearful as she is asking if she can go home HOWIE Head: Normocephalic, without obvious abnormality, atraumatic Eyes: Pupils are equal and reactive ENT/Throat: Lips and mouth are moist Lymph/Neck: Supple, symmetrical, trachea midline, no adenopathy, thyroid: not enlarged, symmetric Lungs: Clear to auscultation bilaterally, respirations unlabored Chest Wall: No tenderness or deformity Cardiovascular/Heart: Regular rate and rhythm, S1, S2 Abdomen: Soft, non-tender, bowel sounds active all four quadrants, no masses, no organomegaly Musculoskeletal: Extremities normal, atraumatic Incision dry and intact Skin: Skin warm and dry without lesions Neurologic: Alert and oriented X 3, Moves all 4 extremities Imaging Reviewed Personally Results for orders placed or performed during the hospital encounter of 04/07/23 CT Hip Left w/o Contrast Impression IMPRESSION: 1. Status post left total hip arthroplasty. There is an acute, displaced periprosthetic fracture of the intertrochanteric left femur, with adjacent soft tissue edema or hematoma. There is additional partially visualized hematoma in the soft tissues lateral to the left hip. 2. Diffuse osseous demineralization. 3. Cholelithiasis, partially visualized. JEROD YEAGER MD SYSTEM ID: [id number] XR Pelvis w Hip Port Left 1 View Impression IMPRESSION: Status post left total hip arthroplasty revision with longstem femoral component. Periprosthetic fracture of the proximal femur with improved alignment. Expected postsurgical soft tissue edema, subcutaneous emphysema, and skin pepe. Normal joint alignment. Osteopenia. POLO GARCIA MD SYSTEM ID: [id number] CT Pelvis Soft Tissue w Contrast Impression IMPRESSION: 1. No significant hematoma or site of bleeding. 2. Postoperative changes status post left hip arthroplasty crossing a comminuted intratrochanteric fracture. There are fluid collections surrounding the left femur posteriorly and in the superficial soft tissues most consistent with postoperative seromas. Labs Reviewed Personally Sodium Date Value Ref Range Status 04/10/2023 136 136 - 145 mmol/L Final Potassium Date Value Ref Range Status 04/10/2023 4.4 3.4 - 5.3 mmol/L Final Chloride Date Value Ref Range Status 04/10/2023 102 98 - 107 mmol/L Final Carbon Dioxide (CO2) Date Value Ref Range Status 04/10/2023 27 22 - 29 mmol/L Final Anion Gap Date Value Ref Range Status 04/10/2023 7 7 - 15 mmol/L Final Glucose Date Value Ref Range Status 04/10/2023 108 (H) 70 - 99 mg/dL Final 04/10/2023 108 (H) 70 - 99 mg/dL Final Urea Nitrogen Date Value Ref Range Status 04/10/2023 11.2 8.0 - 23.0 mg/dL Final Creatinine Date Value Ref Range Status 04/10/2023 0.56 0.51 - 0.95 mg/dL Final GFR Estimate Date Value Ref Range Status 04/10/2023 >90 >60 mL/min/1.73m2 Final Calcium Date Value Ref Range Status 04/10/2023 8.5 (L) 8.8 - 10.2 mg/dL Final MANAGEMENT DISCUSSED with the following over the past 24 hours: Hospitalist Jonathan Linn MD and bedside nurse SRAVANI Johnson 5:30 PM until 6:15 PM 45 MINUTES SPENT BY ME on the date of service doing chart review, history, exam, documentation & further activities per the note. Thank you for this consultation. Caron Alba APRN, TIRE SHOP MECHANIC, ACHPN, FAACVPR Acute Pain Team ([facility]) 8 AM to 4:30 PM after 4:30 page general warehouse worker No weekend coverage [employer] Paging/Directory Pain Securely message with the [employer] Console (learn more here) * OLIVIA PARKICA - 04/09/2023 4:03 PM CDTAssociated Order(s): CARE MANAGEMENT / SOCIAL WORK IP CONSULT Care Management Initial Consult General Information Assessment completed with: Patient, VM-chart review, Type of CM/SW Visit: Offer D/C Planning Primary Care Provider verified and updated as needed: Yes Readmission within the last 30 days: Reason for Consult: discharge planning Advance Care Planning: Communication Assessment Patient's communication style: spoken language (German or Bilingual) Hearing Difficulty or Deaf: no Wear Glasses or Blind: yes Cognitive Cognitive/Neuro/Behavioral: WDL Living Environment: People in home: spouse Current living Arrangements: house Able to return to prior arrangements: no Family/Social Support: Care provided by: self Provides care for: no one Marital Status: Description of Support System: Current Resources: Patient receiving home care services: No Community Resources: None Equipment currently used at home: walker, rolling, grab bar, toilet Supplies currently used at home: None Employment/Financial: 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 unsure Lifestyle & Psychosocial Needs: Social Determinants of Health Tobacco Use: Low Risk (04/08/2023) Patient History Smoking Tobacco Use: Never Smokeless Tobacco Use: Never Passive Exposure: Not on file Alcohol Use: Not At Risk (01/25/2021) AUDIT-C Frequency of Alcohol Consumption: Never Average Number of Drinks: Not on file Frequency of Binge Drinking: Not on file Financial Resource Strain: Not on file Food Insecurity: Not on file Transportation Needs: Not on file Physical Activity: Not on file Stress: Not on file Social Connections: Not on file Intimate Partner Violence: Not on file Depression: Not on file Housing Stability: Not on file Functional Status: Prior to admission patient needed assistance: Dependent ADLs:: Ambulation-walker, Independent Dependent IADLs:: Independent Additional Information: Pt is in need of assistance with discharge planning. Pt is recommended TCU from therapies. Per chart: patient underwent recent left total hip replacement on March 25, 2023 for failed where the hardware was falling off left total hemiarthroplasty. She recovered from surgery right away and got discharged the next day to home. 2 days later on March 27 she was going up the stairs and heard a pop in herleft hip. Since then she has been having signifi//cant left hip pain. Underwent L MICHELLE revision 04/08/23. 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 SW discussed that Sw is unsureif pt's insurance has SNF benefit, but will send referrals to see. Pt would like referrals sent to [facility], referrals sent. Pt stated her will provide transportation. Pt reports being independent with IADL/ADLs and uses a rolling walker. [place], [facility], [facility] Inpatient Care Coordination [facility] [phone] * Trini Torres PA-C - 04/07/2023 2:50 PM CDT [facility] Orthopedic Consultation Mora Rodriguez Adal Age: [age] year old Date of : 1960 Date of Admission: 04/07/2023 Reason for consult: Left hip periprosthetic fracture Requesting provider: Call from ED provider Level of consult: Consult, follow and place orders Assessment and Plan: Assessment: Left hip periprosthetic fracture Plan: Patient scheduled for a left MICHELLE revision tomorrow morning Surgeon: Dr Nina Ramirez NPO Status effective mignight NWB Left LE Hold anticoagulants if taken: coumadin (last dose 04/06) INR goal <1.5 CT left hip ordered for surgical planning Pain medication as needed, minimize narcotics as able Chief Complaint: Left hip pain History of Present Illness: This patient is a 62 year old female who presents with the following condition requiring a hospitaladmission: periprosthetic left hip fracture Patient had a left MICHELLE performed by Dr Chen on 03/25/23. Patient was ascending the stairs on 03/27/23 and felt a pop in her hip. She had increased pain and xrays at [facility] and was told xrays were negative. Unfortunately, patient was found to have a left hip periprosthetic fracture at her follow-up appointment yesterday at [facility] and was referred to the hospital for fixation. Past Medical History: Past Medical History: Diagnosis Date ADHD (attention deficit hyperactivity disorder) Anemia Anxiety and depression Hypertension RA (rheumatoid arthritis) (H) Rheumatoid arthritis (H) Seizure (H) Thoracic compression fracture (H) multiple thoracic and lumbar compression fractures Past Surgical History: Past Surgical History: Procedure Laterality Date ARTHROPLASTY HIP Left 03/25/2023 Procedure: left total hip arthroplasty with removal of hardware; Surgeon: Cj Chen MD; Location: [facility] OR CARPAL TUNNEL RELEASE RT/LT Bilateral SUPPLY TECHNICIAN SURGERY c section x 3 OPEN REDUCTION INTERNAL FIXATION HIP NAILING Left 01/25/2021 Procedure: Operative fixation of left femoral neck fracture with cannulated screws; Surgeon: Cj Chen MD; Location: [facility] OR ORTHOPEDIC SURGERY right middle finger surgery TOTAL KNEE ARTHROPLASTY Left 04/2021 TUBAL LIGATION Social History: Social History Tobacco Use Smoking status: Never Smokeless tobacco: Never Substance Use Topics Alcohol use: Yes Comment: 2 beers nightly Family History: No family history on file. Immunizations: VACCINE/DOSE Diptheria DPT DTAP HBIG Hepatitis A Hepatitis B HIB Influenza Measles Meningococcal MMR Mumps Pneumococcal Polio Rubella Small Pox TDAP Varicella Zoster Allergies: Allergies Allergen Reactions Aspirin Anaphylaxis Medications: No current facility-administered medications for this encounter. Current Outpatient Medications Medication Sig acetaminophen (TYLENOL) 325 MG tablet Take 2 tablets (650 mg) by mouth every 4 hours as needed for other (mild pain) etanercept (ENBREL) 50 MG/ML injection Inject 50 mg Subcutaneous once a week Wednesdays folic acid (FOLVITE) 1 MG tablet Take 1 mg by mouth daily hydroxychloroquine (PLAQUENIL) 200 MG tablet Take 2 tablets by mouth every morning (2 x 200 mg = 400 mg) hydrOXYzine (ATARAX) 25 MG tablet Take 1 tablet (25 mg) by mouth every 6 hours as needed for itching or anxiety (with pain, moderate pain) levETIRAcetam (KEPPRA) 500 MG tablet Take 2 tablets by mouth 2 times daily (2 x 500 mg = 1,000 mg) lisinopril-hydrochlorothiazide (ZESTORETIC) 10-12.5 MG tablet Take 1 tablet by mouth daily methotrexate 2.5 MG tablet Take 10 tablets by mouth every 7 days Wednesdays (10 x 2.5 mg = 25 mg) oxyCODONE (ROXICODONE) 5 MG tablet Take 1-2 tablets (5-10 mg) by mouth every 4 hours as needed for moderate to severe pain predniSONE (DELTASONE) 5 MG tablet Take 1 tablet by mouth as needed senna-docusate (SENOKOT-S/PERICOLACE) 8.6-50 MG tablet Take 1 tablet by mouth 2 times daily venlafaxine (EFFEXOR) 75 MG tablet Take 3 tablets by mouth 2 times daily (3 x 75 mg = 225 mg) warfarin ANTICOAGULANT (COUMADIN) 2.5 MG tablet Take 2 tablets (5 mg) by mouth daily Review of Systems: ROS: 10 point ROS neg other than the symptoms noted above in the HPI. Physical Exam: All vitals have been reviewed Patient Vitals for the past 24 hrs: BP Temp Temp src Pulse Resp SpO2 04/07/23 1259 110/70 -- -- -- -- -- 04/07/23 1255 -- 97.8 ??F (36.6 ??C) Temporal 99 18 97 % No intake or output data in the 24 hours ending 04/07/23 1450 Physical Exam Temp: 97.8 ??F (36.6 ??C) Temp src: Temporal BP: 110/70 Pulse: 99 Resp: 18 SpO2: 97 % Vital Signs with Ranges Temp: [97.8 ??F (36.6 ??C)] 97.8 ??F (36.6 ??C) Pulse: [99] 99 Resp: [18] 18 BP: (110)/(70) 110/70 SpO2: [97 %] 97 % 0 lbs 0 oz Constitutional: Pleasant, alert, appropriate, following commands. HEENT: Head atraumatic normocephalic. Pupils equal round and reactive to light. Respiratory: Unlabored breathing no audible wheeze Cardiovascular: Regular rate and rhythm per pulses GI: Abdomen non-distended. Lymph/Hematologic: No lymphadenopathy in areas examined Genitourinary: No carranza Skin: No rashes, no cyanosis, no edema. Musculoskeletal: On exam of the left hip: healing lateral hip incision without erythema. Left LE isexternally rotated and is shortened. Pain with ROM of the hip. Sensation and pulses are intact and equal. Able to dorsi and plantar flex. Denies calf pain with compression. Neurologic: normal without focal findings, mental status, speech normal, alert and oriented x iii Neuropsychiatric: stable Data: All laboratory data reviewed Results for orders placed or performed during the hospital encounter of 04/07/23 CBC with platelets differential Status: None () Narrative The following orders were created for panel order CBC with platelets differential. Procedure Abnormality Status --------- ------ CBC with platelets and d...[[id number]] Please view results for these tests on the individual orders. ABO/Rh type and screen Status: None () Narrative The following orders were created for panel order ABO/Rh type and screen. Procedure Abnormality Status --------- ------ Adult Type and Screen[[id number]] Please view results for these tests on the individual orders. Attestation: I have reviewed today's vital signs, notes, medications, labs and imaging with Dr. Nina Ramirez. Amount of time performed on this consult: 60 minutes. Trini Torres PA-C Associated attestation - Fazal Ramirez MD - 04/08/2023 9:53 AM CDT I personally obtained history and evaluated Mora Galeas In addition, I reviewed the patient's medical history and imaging. I discussed the case with Trini Torres PA-C. I reviewed the notes and agree with her findings and plan. In addition, I would add the following: Mora Galeas is a 62 year old female with a history of rheumatoid arthritis on Plaquenil and methotrexate, seizure disorder on Keppra, hypertension who presents with a left periprosthetic proximal femur fracture. She recently underwent a left total hip arthroplasty and removal of hip screws on March 25, [address] Chen for a history of AVN. Patient reports she was ascending stairs on March 27 when she felt a pop in her hip. She presented to [facility] where x-rays were read as negative. She has since followed up at [facility] where new x-rays were obtained and revealed a periprosthetic left hip fracture. She denies any falls or trauma. She locates pain to her left hip. She has a Zachary 52 mm Trident TriTanium cluster hole acetabular shell, 0 degree polyethylene liner, size 5 Accolade II132 degree neck angle +2.5 mm neck and 36mm femoral head She is on Coumadin for blood thinner. Her INR is less than one-point today. She does not take any prednisone. On exam, she is in no acute distress. Resting comfortably. Left lower extremity is shortened. She has mild tenderness to palpation over the left greater trochanter. Hip range of motion is limited secondary to pain. No tenderness to palpation over the knee. Or ankle. Dorsiflexion, plantarflexion areintact. Sensation intact to light touch over the dorsum and plantar aspect of the foot. Good capillary refill. Radiographs and CT scan were reviewed. Imaging reveals a left total hip arthroplasty with a periprosthetic fracture centered around the lesser trochanter. The stem appears loose. No obvious fracturesor loosening along the acetabular shell. I discussed these findings with the patient along with possible treatment options including nonoperative and operative intervention along with the risks and benefits and expected recovery. I recommended surgery including a left hip revision and ORIF of her fracture and allow for early mobilization and improved fracture alignment. After thorough discussion, she was in agreement and elected to proceed with surgery. We discussed risks related to surgery including infection, bleeding, neurovascular injury, fracture, malunion/nonunion, dislocation, wound issues, need for further surgery, leg length discrepancy, prolonged rehab, pain, stiffness, anesthesia risk, blood clots, and mortality. Plan for a left total hip arthroplasty revision and ORIF of the proximal femur. N.p.o. 4 OR. Hold Coumadin (INR 1.4) FAZAL RAMIREZ MD documented in this encounter Nursing Notes * Arianna Ni RN - 04/08/2023 5:57 PM CDTSummary: Pain Control Patient rates pain 10 out of 10 but there are no nonverbal indicators of pain. Received 100mg Fentanyl and 2mg Dilaudid, 975 tylenol, and 25 atarax. MDA consulted and no further pain medication was indicated or ordered. OK to transfer to floor per MDA. documented in this encounter ED Notes * Love Smith RN - 04/07/2023 3:20 PM CDT [facility] ED Nurse Handoff Report ED Chief complaint: Hip Pain . ED Diagnosis: Final diagnoses: Periprosthetic hip fracture, initial encounter Allergies: Allergies Allergen Reactions Aspirin Anaphylaxis Code Status: Full Code Activity level - Baseline/Home: independent. Activity Level - Current: in bed. Lift room needed: No. Bariatric: No Fitting Room Associate Needed: No Isolation: No. Infection: Not Applicable. Respiratory status: Room air Vital Signs (within 30 minutes): Vitals: 04/07/23 1255 04/07/23 1259 04/07/23 1458 BP: 110/70 115/64 Pulse: 99 96 Resp: 18 16 Temp: 97.8 ??F (36.6 ??C) TempSrc: Temporal SpO2: 97% 98% Cardiac Rhythm: , Pain level: Patient confused: No. Patient Falls Risk: activity supervised. Elimination Status: Has voided Patient Report - Initial Complaint: hip pain. Focused Assessment: Pt arrives from home for inc L hip pain s/p surgery Abnormal Results: Labs Ordered and Resulted from Time of ED Arrival to Time of ED Departure INR - Abnormal Result Value INR 1.40 (*) CBC WITH PLATELETS AND DIFFERENTIAL - Abnormal WBC Count 7.3 RBC Count 3.40 (*) Hemoglobin 11.0 (*) Hematocrit 33.7 (*) MCV 99 MCH 32.4 MCHC 32.6 RDW 15.1 (*) Platelet Count 587 (*) % Neutrophils 67 % Lymphocytes 22 % Monocytes 10 % Eosinophils 1 % Basophils 0 % Immature Granulocytes 0 NRBCs per 100 WBC 0 Absolute Neutrophils 4.9 Absolute Lymphocytes 1.6 Absolute Monocytes 0.7 Absolute Eosinophils 0.1 Absolute Basophils 0.0 Absolute Immature Granulocytes 0.0 Absolute NRBCs 0.0 PARTIAL THROMBOPLASTIN TIME - Normal aPTT 33 BASIC METABOLIC PANEL TYPE AND SCREEN, ADULT ABO/RH TYPE AND SCREEN CT Hip Left w/o Contrast (Results Pending) Treatments provided: oral pain meds. CT Family Comments: aware of admission. OBS brochure/video discussed/provided to patient: N/A ED Medications: Medications oxyCODONE (ROXICODONE) tablet 5 mg (5 mg Oral $Given 04/07/23 0659) Drips infusing: No For the majority of the shift this patient was Green. Interventions performed were oral pain meds. Sepsis treatment initiated: No Cares/treatment/interventions/medications to be completed following ED care: Pain management. Potential surgery tomorrow. ED Nurse Name: Evelyn Fortune RN 3:20 PM RECEIVING UNIT ED HANDOFF REVIEW Above ED Nurse Handoff Report was reviewed: Yes Reviewed by: Love Smith RN on April 07, 2023 at 6:31 PM * Aminah Garcia RN - 04/07/2023 12:55 PM CDT 1.5 week ago had left hip replacement. States something is now wrong from the surgery 1.5 weeks agoand needs new replacement. Was told to come in for pain management and to have a CT prior to having surgery that is supposed to be planned for tomorrow. * Rusty Schultz PA-C - 04/07/2023 12:48 PM CDT History Chief Complaint: Hip Pain HPI Mora Galeas is a 62 year old female on Coumadin with history of hypertension presenting with hip pain. Patient states she is coming in to be admitted for a periprosthetic fracture. Took oral oxycodone this morning and reports no pain at the moment though she anticipates more pain at some point. Patient did not take her Coumadin today; states she took Keppra and her antidepressants. Denies new fall or other injuries. Independent Historian: None - Patient Only Review of External Notes: Reviewed [facility] Ortho note Dr. Cj Issa home from 03/25/2023 where patient underwent removalof left femoral neck pinning and left total hip arthroplasty due to avascular necrosis. Medications: Folic acid Hydroxychloroquine Hydroxyzine Levetiracetam Zestoretic Methotrexate Oxycodone Prednisone Senna-docusate Venlafaxine Warfarin Coumadin Past Medical History: ADHD Anemia Anxiety and depression Hypertension Rheumatoid arthritis Seizure Thoracic compression fracture Seizure Past Surgical History: Left hip arthroplasty Bilateral carpal tunnel release ORIF hip nailing, left Right middle finger surgery Left total knee arthroplasty Tubal ligation Physical Exam Patient Vitals for the past 24 hrs: BP Temp Temp src Pulse Resp SpO2 04/07/23 1715 -- -- -- 96 16 99 % 04/07/23 1500 115/64 -- -- -- -- 99 % 04/07/23 1458 115/64 -- -- 96 16 98 % 04/07/23 1259 110/70 -- -- -- -- -- 04/07/23 1255 -- 97.8 ??F (36.6 ??C) Temporal 99 18 97 % Physical Exam General: Awake, alert, non-toxic. Head: Scalp is NC/AT Eyes: Conjunctiva normal, PERRL Neck: Normal range of motion without rigidity. CV: Regular rate and rhythm No pathologic murmur, rubs, or gallops. Resp: Breath sounds are clear bilaterally Non-labored, no retractions or accessory muscle use Abdomen: Abdomen is soft, no distension, no tenderness, no masses. MS: No lower extremity edema/swelling. Range of motion of hip not attempted due to known periprosthetic fracture. Skin: Warm and dry, No rash or lesions noted. 2+ DP and PT pulses BL to LE. Cap refill < 2 seconds Neuro: Alert and oriented. GCS 15 Moves all extremities normal except left lower extremity due to known hip fracture but normal sensation and range of motion in ankle foot and toes. No facial asymmetry. Psych: Awake. Alert. Normal affect. Appropriate interactions. Emergency Department Course Imaging: CT Hip Left w/o Contrast Final Result IMPRESSION: 1. Status post left total hip arthroplasty. There is an acute, displaced periprosthetic fracture of the intertrochanteric left femur, with adjacent soft tissue edema or hematoma. There is additional partially visualized hematoma in the soft tissues lateral to the left hip. 2. Diffuse osseous demineralization. 3. Cholelithiasis, partially visualized. JEROD YEAGER MD SYSTEM ID: [id number] Report per radiology Laboratory: Labs Ordered and Resulted from Time of ED Arrival to Time of ED Departure INR - Abnormal Result Value INR 1.40 (*) BASIC METABOLIC PANEL - Abnormal Sodium 135 (*) Potassium 4.3 Chloride 100 Carbon Dioxide (CO2) 25 Anion Gap 10 Urea Nitrogen 11.9 Creatinine 0.57 Calcium 9.3 Glucose 91 GFR Estimate >90 CBC WITH PLATELETS AND DIFFERENTIAL - Abnormal WBC Count 7.3 RBC Count 3.40 (*) Hemoglobin 11.0 (*) Hematocrit 33.7 (*) MCV 99 MCH 32.4 MCHC 32.6 RDW 15.1 (*) Platelet Count 587 (*) % Neutrophils 67 % Lymphocytes 22 % Monocytes 10 % Eosinophils 1 % Basophils 0 % Immature Granulocytes 0 NRBCs per 100 WBC 0 Absolute Neutrophils 4.9 Absolute Lymphocytes 1.6 Absolute Monocytes 0.7 Absolute Eosinophils 0.1 Absolute Basophils 0.0 Absolute Immature Granulocytes 0.0 Absolute NRBCs 0.0 PARTIAL THROMBOPLASTIN TIME - Normal aPTT 33 TYPE AND SCREEN, ADULT ABO/RH(D) A NEG Antibody Screen Negative SPECIMEN EXPIRATION DATE [id number] ABO/RH TYPE AND SCREEN Emergency Department Course & Assessments: Interventions: Medications oxyCODONE (ROXICODONE) tablet 5 mg (5 mg Oral $Given 04/07/23 1446) Assessments: 1436 I entered the patient's room and obtained history. Independent Interpretation (X-rays, CTs, rhythm strip): none Consultations/Discussion of Management or Tests: 1432 I consulted with TEENA Feliz, orthopedics, regarding the patient's history and presentation here in the emergency department. [address] Locke, hospitalist, regarding the patient's history and presentation here in the emergency department who accepted the patient for admission. Social Determinants of Health affecting care: None Disposition: The patient was admitted to the hospital under the care of Dr. Locke. Impression & Plan [facility] Diagnoses: None Medical Decision Making: This is a 62-year-old female who unfortunately presents with known left periprosthetic hip fractureafter undergoing left total hip arthroplasty status post failure of femoral neck pinning due to avascular necrosis. Had already had x-ray at outside facility by [facility]. I spoke with on-call orthopedic DACIA Feliz who advised that plan is for operative repair of periprosthetic fracture in the morning tomorrow admit patient n.p.o. at midnight with goal INR less than 1.5 as she is on Coumadin. She also ordered a CT of the hip to better clarify and for operative planning. It is actually already in the goal range due to the patient holding her self. CMS is intact. Nothing to suggest DVT. Discussed with h ospitalist who agrees to accept. Pain controlled at this time. Diagnosis: ICD-10-CM 1. Periprosthetic hip fracture, initial encounter M97.8XXA Case Request: LEFT TOTAL HIP ARTHROPLASTY REVISION AND OPEN REDUCTION INTERNAL FIXATION PROXIMAL FEMUR Z96.649 Case Request: LEFT TOTAL HIP ARTHROPLASTY REVISION AND OPEN REDUCTION INTERNAL FIXATION PROXIMAL FEMUR Scribe Disclosure: Manuel Christensen Hired, am serving as a scribe at 2:32 PM on 04/07/2023 to document services personally performed by Rusty Schultz PA-C based on my observations and the provider's statements to me. 04/07/2023 Rusty Schultz PA-C Etten, Clark Ellsworth, PA-C 04/07/23 1730 documented in this encounter Miscellaneous Notes * Pharmacy-Anticoagulation Service - Ember Zendejas RPH - 04/12/2023 11:32 AM CDT Images from the original note were not included. 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 INR Goal= 2-3 Expected length of therapy undetermined. Warfarin CUSTOMER SUPPORT SPECIALIST Regimen: 2.5 mg daily Anticoagulation Dose History More data exists Latest Ref Rng & Units 03/26/2023 04/07/2023 04/08/2023 04/09/2023 Recent Dosing and Labs warfarin ANTICOAGULANT (COUMADIN) tablet 2.5 mg - - - 2.5 mg, $Given - warfarin ANTICOAGULANT (COUMADIN) tablet 6 mg - - - - - warfarin ANTICOAGULANT (COUMADIN) tablet 5 mg - - - - 5 mg, $Given INR 0.85 - 1.15 1.08 1.40 1.26 1.39 1.18 04/10/2023 04/11/2023 04/12/2023 Recent Dosing and Labs warfarin ANTICOAGULANT (COUMADIN) tablet 2.5 mg - - - warfarin ANTICOAGULANT (COUMADIN) tablet 6 mg - 6 mg, $Given - warfarin ANTICOAGULANT (COUMADIN) tablet 5 mg 5 mg, $Given - - INR 1.31 1.29 1.28 Vitamin K doses administered during the last 7 days: - FFP administered during the last 7 days: - The patient is discharged with instructions to take warfarin 5 mg daily on 04/12 and 04/13 and then check INR for further dosing. Per provider's clarification, no bridging with Lovenox. * Plan of Care - Mora Roblero OT - 04/12/2023 11:32 AM CDT Occupational Therapy Discharge Summary Reason for therapy discharge: Discharged to home. Progress towards therapy goal(s). See goals on Care Plan in [facility] electronic health record for goal details. Goals partially met. Barriers to achieving goals: discharge from facility. Therapy recommendation(s): No further therapy is recommended. Patient has met needed goals to return home safely with spouse support for IADls and ADls as needed. * Plan of Care - Maurice Malloy, PT - 04/12/2023 8:48 AM CDT Physical Therapy Discharge Summary Reason for therapy discharge: All goals and outcomes met, no further needs identified. Progress towards therapy goal(s). See goals on Care Plan in [facility] electronic health record for goal details. Goals met Therapy recommendation(s): No further therapy is recommended. Pt with significant improvement, able to demonstrate safe mobility with SBA/mod ind. Anticipate safe discharge to home with use of FWW for support. 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 VSS, RA. Rating pain 4/10. 1 mg PO dilaudid given. Up with assist of one GB/W, voiding. CMS intact, dressing with dried drainage. Will continue to monitor. * Plan of Care - Elizabeth Deleon RN - 04/11/2023 11:06 PM CDT Goal Outcome Evaluation: Vital signs stable. Lungs clear, encouraged inspirometer use. CMS intact, bruising and swelling to left hip. Dressing intact. Pain controlled with scheduled tylenol, naproxyn , robaxin and atarax. Hgb 7.6, pt asymptomatic. Ambulated with walker, gait belt and 1 assist. Voiding, BM x 2 this evening. * Plan of Care - Anay Lange RN - 04/11/2023 12:37 PM CDT Goal Outcome Evaluation: Plan of Care Reviewed With: patient VS-stable, afebrile, hgb up to 7.7 today. Will be rechecked every 12 hours. Lung Sounds-clear, no cough. On room air. Using IS upto 1500 O2-on room air. GI-+Bs. +flatus. Lbm was yesterday and today. Tolerating reg diet. Did c/o heartburn or reflux thisam after eating oatmeal. Tums requested and given-- relief. -voiding. Adequately. IVF-sl iv. Dressings-changed via MD ortho. Aquacel applied. Pepe intact. CMS-denies numbness and tingling. +pp. Strong dorsi/planter flexion. Drain-none. Activity-up with one assist. Walker, belt. Able to shower. Walked to bathroom and back . Walked in hallway with Pt. Sat up in chair. Pain-rates pain level a 0. Took dilaudid x 1 this shift. Using ice. D/C Plan-tcu probably tomorrow. Will recheck hgb tonight and in am. 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 A/Ox4, on RA. BP low, asymptomatic. Gave one unit blood for Hgb of 6.8. CT scan showed no sign of internal bleeding at surgical site. Encouraging fluid intake. Pain controlled with scheduled Tylenol,PRN Po dilaudid 1 mg, PRN robaxin, and PRN atarax. Dressing is gauze/Tegaderm, scant drainage. CMS intact. Voiding adequately. Up with A1 w/GB. TCU at discharge. * Plan of Care - Arnold Stevenson RN - 04/10/2023 7:50 PM CDT Soft SBPs 100s, tachy Hrs 100s, asymptomatic. Pain improved, managed with minimal PRN PO pain meds + cold. No nausea. LS clear bilat., RA, need freq. encouragements hourly IS. CMS+. Drsg CDI. A1 belt+ walker, sat up in recliner, ambulating. Voiding, LBM today. TCU. * Provider Notification - Arnold Stevenson RN - 04/10/2023 6:43 PM CDT Web-based Paged ADMIT PAGER (X-COVER): FYI: Lab called Critical low Hgb 6.8 (7.6 this AM, 9.1 yesterday). Pt asymptomatic, thanks. Dr. Aburto at bedside, CT ordered. Monitor. 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 VS stable except tachycardic. CMS intact, dressing CDI. Ambulated to bathroom with assist of one GB/W, voiding in good amounts. Pain 1/10 managed with naproxen and tylenol. Plan is TCU at discharge. Will continue to monitor. 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 A/Ox4. Pain improved with both PRN IV/PO pain meds, encouraged freq. repo, relaxation + cold packs.No nausea. LS clear bilat., RA, encouraged hourly CDB/IS x10. CMS+. Drsg CDI. A1 belt + walker, satup in recliner, ambulating to bathroom. Need encouragements self cares. Voiding, gas+. * Provider Notification - Arnold Stevenson RN - 04/09/2023 4:00 PM CDT [employer] Web Paged Dr. Linn: Tachy HRs 130-140s, denies pain, CP, SOB. Pt relaxed. Do you want to do anything? Thanks Spoke with Dr. Linn via phone, pt asymptomatic, order IV fluid (NS 100cc/hr for 1 liter) & monitor. * Plan of Care - Jose Lemus RN - 04/08/2023 9:17 PM CDT Goal Outcome Evaluation: Patient vital signs are at baseline: No, Reason: BP elevated 143/60 Patient able to ambulate as they were prior to admission or with assist devices provided by therapies during their stay: Yes, pt took a few steps to go bedside commode. Patient MUST void prior to discharge: Yes, voided Patient able to tolerate oral intake: Yes Pt has adequate pain control using Oral analgesics: Yes, Rating pain 8-10/10, managed with 0.2 IV dilaudid and robaxin, oxy 10 mg. 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 Has goal D/C date and time been discussed with patient: Yes, TCU when stable. Pt A&O x4, afebrile. BP elevated. 98% RA. Capno in place. CMS intact, denies numbness and tingling, abductor pillow in place. Denies nausea and vomiting. Will continue to monitor. * Pharmacy-Anticoagulation Service - Angel Barker [facility] - 04/08/2023 7:12 PM CDT Clinical Pharmacy - Warfarin Dosing Consult Pharmacy has been consulted to manage this patient???s warfarin therapy. Indication: DVT/PE Prophylaxis Therapy Goal: INR 2-3 Warfarin Prior to Admission: Yes Warfarin CUSTOMER SUPPORT SPECIALIST Regimen: 2.5 mg daily Significant drug interactions: lovenox Recent documented change in oral intake/nutrition: Unknown Dose Comments: INR 1.26. Warfarin 2.5 mg today INR Date Value Ref Range Status 04/08/2023 1.26 (H) 0.85 - 1.15 Final 04/08/2023 1.39 (H) 0.85 - 1.15 Final Recommend warfarin 2.5 mg today. Pharmacy will monitor Mora Galeas daily and order warfarin doses to achieve specified goal. Please contact pharmacy as soon as possible if the warfarin needs to be held for a procedure or if the warfarin goals change. * Op Note - Fazal Ramirez MD - 04/08/2023 10:29 AM CDT ORTHOPEDIC SURGERY OPERATIVE NOTE Mora Galeas [id number] 1960 April 08, 2023 PREOPERATIVE DIAGNOSIS: Left periprosthetic hip fracture History of left total hip arthroplasty History of left hip AVN s/p pinning History of Rheumatoid arthritis POSTOPERATIVE DIAGNOSIS: Same PROCEDURE: Left revision total hip arthroplasty, stem explant and revision to long modular stem Left proximal femur open reduction and internal fixation 22 Modifier: Application of a 22 modifier is appropriate in this case as the case required approximately 30% additional time (1 hr) and effort due to the altered surgical field and the technical complexity of the fracture around the pre-existing implant. SURGEON: Fazal Ramirez MD DIGITAL MEASUREMENT ADVISOR: Rohini Beal PA-C; A skilled first aid instructor was necessary for this procedure for assistance with patient positioning, prepping, draping, surgical visualization, wound closure, and application of the dressing. Vira Fernandes PA-C SPECIMENS: None COMPLICATIONS: None ESTIMATED BLOOD LOSS: 350cc IMPLANTS: Implant Name Type Inv. Item Serial No. Circulation Tender Lot No. LRB No. Used Action IMP HEAD FEMORAL STRK BIOLOX DELTA CERAMIC 36MM +2.5MM - [id number] Total Joint Component/Insert IMP HEAD FEMORAL STRK BIOLOX DELTA CERAMIC 36MM +2.5MM [employer] [id number] Left 1 Explanted IMP STEM FEMORAL HIP STRK ACCOLADE II 132DEG SZ 5 [id number] - [id number] Total Joint Component/Insert IMP STEM FEMORAL HIP STRK ACCOLADE II 132DEG SZ 5 [id number]- [id number] [employer] [id number] Left 1 Explanted FiberTape Cerclage, 2mm, 48 ARTHREX [id number] Left 3 Implanted IMP STEM FEM RSTRTN MOD BOWED CONICAL [id number] - [id number] Total Joint Component/InsertIMP STEM FEM RSTRTN MOD BOWED CONICAL [id number] [employer] [id number] Left 1 Implanted IMP INSERT ACET STRK MDM COCR HIP 0DEG 42MM SZ E [id number] - [id number] Total Joint Component/Insert IMP INSERT ACET STRK MDM COCR HIP 0DEG 42MM SZ E [id number] [employer] [id number] Left 1 Implanted IMP STEM FEM MOD REV HIP PROX BODY/BOLT 19MM +10 6276--119 - [id number] Total Joint Component/Insert IMP STEM FEM MOD REV HIP PROX BODY/BOLT 19MM +10 6276--119 [employer] [id number] Left 1 Implanted INSERT ACTB 42MM 28MM E HIP X3 ADM STRL [facility] 7236-2-848 - [id number] Metallic Hardware/[place] INSERT ACTB 42MM 28MM E HIP X3 ADM STRL [facility] 7236-2-358 [employer] [id number] Left 1 Implanted IMP HEAD FEMORAL STRK BIOLOX DELTA CERAMIC 28MM +4MM - [id number] Total Joint Component/Insert IMP HEAD FEMORAL STRK BIOLOX DELTA CERAMIC 28MM +4MM [employer] [id number] Left 1 Implanted FiberTape Cerclage, 2mm, 48 [id number] Left 1 Implanted FiberTape Cerclage, 2mm, 48 ARTHREX [id number] Left 1 Implanted PRIOR IMPLANTS: She has a [place] 52 mm Trident TriTanium cluster hole acetabular shell, 0 degree polyethylene liner, size 5 Accolade II132 degree neck angle +2.5 mm neck and 36mm femoral head INDICATIONS: Mora Galeas is a 62 year old female with a history of rheumatoid arthritis on Plaquenil and methotrexate, seizure disorder on Keppra, hypertension who presents with a left periprosthetic proximal femur fracture. She recently underwent a left total hip arthroplasty and removal of hip screws on March 25, [address] Chen for a history of AVN. Patient reports she was ascending stairs on March 27 when she felt a pop in her hip. She presented to [facility] where x-rays were read as negative. She has since followed up at [facility] where new x-rays were obtained and revealed a periprosthetic left hip fracture. She denies any falls or trauma. She locates pain to her left hip. She is on Coumadin for blood thinner. Her INR is less than one-point today. She does not take any prednisone. Radiographs and CT scan were reviewed. Imaging reveals a left total hip arthroplasty with a periprosthetic fracture centered around the lesser trochanter. The stem appears loose. No obvious fracturesor loosening along the acetabular shell. I discussed these findings with the patient along with possible treatment options including nonoperative and operative intervention along with the risks and benefits and expected recovery. I recommended surgery including a left hip revision and ORIF of her fracture and allow for early mobilization and improved fracture alignment. After thorough discussion, she was in agreement and elected to proceed with surgery. We discussed risks related to surgery including infection, bleeding, neurovascular injury, fracture, malunion/nonunion, dislocation, wound issues, need for further surgery, leg length discrepancy, prolonged rehab, pain, stiffness, anesthesia risk, blood clots, and mortality. Benefits of surgery discussed included improved function, reduction in immobilization related medical risk, and pain relief. The patient was in agreement with the plan to proceed. The informed consent was signed and documented. Met with the patient preoperatively to hakeem the operative extremity. OPERATIVE COURSE: The patient was identified in the preoperative holding area per hospital policy and the correct operative site marked. Patient was brought into the to the operating room and placed supine on the operating room table, radiolucent flat dayanara. After induction of anesthesia the patient was placed into a lateral decubitus position on a hip positioner and all bony prominences well-padded. Chlorhexidine prescrub was performed followed by prepping and draping in normal sterile fashion. Antibiotic administration (Ancef) and transexamic acid administration were confirmed. A WHO timeout was performed to confirm the correct patient, surgery, and surgical site per standard protocol. The patient's prior posterior hip incision was utilized and extended distally. Electrocautery was utilized through the subcutaneous tissue. Fascia was incised in line with the incision. There was a notable large rent in the IT band. The Charnley retractor was placed. A bursectomy was performed. Thepatient's prior external rotator and capsule incision was identified and opened to visualize the implants. Explant of prior implant The patient's prior implants and periprosthetic fracture were visualized. The fracture was of the debrided. The fracture was noted to involve the lesser trochanter and posterior medial calcar. Retractors were placed for further visualization. The patients prior stem was noted to be loose and easilyremoved with a vice china painter Revision hip arthroplasty We then proceeded with placement of a new stem. Prior to placement of the new stem, a Arthrex fibertape cerclage was placed just distal to the fracture along the femoral shaft to prevent any propagation of a femoral shaft fracture. The [employer] modular implant system was utilized. The femoral shaft was reamed sequentially up to a size 19mm. Intraoperative radiographs were obtained to ensure good fit. A [id number] was selected and implanted into the femoral canal. We then proceeded with a trial of body and femoral heads based off the stem. We initially trialed astandard 19mm in diabmeter body with a 36+5 mm head. However the hip was noted to be unstable. We subsequently upsized the body to a standard +10. Overall the hip was noted to be unstable posteriorly. The body was corrected a couple times to provide more anteversion. The decision was then made to convert the polyethylene to a dual mobility. The prior polyethylene was then removed. A metal cup wasthen placed. We then subsequently trialed various head sizes. Eventually good stability was achieved with a standard +10 mm, 19 mm diameter body with a 36+4mm femoral head. The hip was reduced stablein all directions. The final implants were then placed. Radiographs were obtained which revealed good length and a stable hip. Open reduction Internal fixation of greater and lesser trochanteric femur fracture We then proceeded with placing the 3 Arthrex fiber tape cerclage is around the lesser trochanter and medial calcar fracture fragment and the femur. The cerclages were gradually tightened to reduce the fracture to the femur. In addition, there is noted to be a small minimally displaced greater trochanteric fracture that likely occurred during reduction of the hip trials. The fracture was visualized and noted to include the posterior aspect of the greater trochanter. An Arthrex fiber tape cerclage was passed around the a bductor tendons and around the lesser trochanter to create a cerclage fixation. Additional #5 Ethibond were also further placed along the lateral aspect of the greater trochanter for further cerclagefixation. Final radiographs were then obtained to confirm good placement of all hardware, leg lengths and reduction of the fracture fragments. The wound was then copiously irrigated with pulsavac, this was followed by Betadine wash and a repeat Pulsavac irrigation. Powdered vancomycin was then left in the hip joint. We repaired the capsule with #5 Ethibond. Overall the posterior capsule was noted to be deficient and was only able to be partially closed. We then proceeded with passing the previously tagged external rotators through a drill hole in the proximal femur. The external rotators were noted to have good fixation to the proximal femur. The IT band was then closed with #1 Vicryl sutures followed by a running #1 Stratafix suture to create a water-tight seal. The wound was then copiously irrigated with pulsavac. The superficial layers were then closed with 0 Vicryl 2-0 Monocryl and pepe along the skin. A gauze and Tegaderm dressing was then placed on the skin. The patient was awoken from anesthesia and transported to the recovery room in stable condition. All hardware was accounted for. POST OP PLAN: 1. Ancef x 24 hours, cefadroxil 500mg BID x 7days 2. Lovenox starting POD 1, may restart Coumadin or DVT prophylaxis. 3. PACU x-rays. 4. Weightbearing as tolerated LLE 5. Physical therapy/occupational therapy. 6. Keep dressing on for 2 weeks. OK to shower. No submerging wound. 7. Hip precautions: No hip flexion pass 90 deg. Flexion should be done with the hip in ER. No IR. Abduction pillow while in bed 8. Discharge: Case management social work consult for placement FOLLOWUP: Please call as soon as possible to make an appointment to be seen in Dr. Fazal Ramirez's clinic in [address] Ramirez's floor care technician is Dede Sadler. Please contact her at [phone] to schedule an appointment[address]. Ramirez sees patient's at 2 clinic locations: [facility] [place] [address] [place] [address] [facility] [place] [address] , [address], [place] [address] Please call the on-call phone number [phone] during evenings, nights and weekends for any urgent needs. Prescription refills must be done during business hours by calling [phone] [facility] * Plan of Care - Arnold Stevenson RN - 04/08/2023 8:30 AM CDT NPO, surgery @ 1005 Dr. Huan Ramirez. Afebrile. Pain 10/10, taking PRN IV dilaudid + cold. No nausea.Denies N/T. Voiding. Bedrest. 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 NPO since midnight, going for surgery at 1005. Oxycodone, robaxin , atarax and IV diladiud for pain * Pharmacy-Admission Medication History - Trini Josue RP - 04/07/2023 6:44 PM CDT Pharmacist Admission Medication History Admission medication history is complete. The information provided in this note is only as accurateas the sources available at the time of the update. Medication reconciliation/reorder completed by provider prior to medication history? Yes Information Source(s): Patient, Hospital records, [facility] Pertinent Information: Pt recently started warfarin following surgery a couple of weeks ago - Rx states to take two 2.5 mg tabs daily (5 mg total), however pt has only been taking one 2.5 mg tab daily. Pt states has green colored tabs at home. Changes made to CUSTOMER SUPPORT SPECIALIST medication list: Added: None Deleted: None Changed: Warfarin 5 mg daily -> 2.5 mg daily Senna-doc -> PRN Allergies reviewed with patient and updates made in EHR: yes Medication History Completed By: Trini Josue RPH 04/07/2023 6:44 PM Prior to Admission medications Medication Sig Last Dose Taking? Auth Provider [address] Vendor End Date acetaminophen (TYLENOL) 325 MG tablet Take 2 tablets (650 mg) by mouth every 4 hours as needed for other (mild pain) Unknown at PRN Yes Cj Chen MD etanercept (ENBREL) 50 MG/ML injection Inject 50 mg Subcutaneous once a week Wednesdays Past Month Yes Reported, Patient Yes folic acid (FOLVITE) 1 MG tablet Take 1 mg by mouth daily 04/07/2023 Yes Reported, Patient hydroxychloroquine (PLAQUENIL) 200 MG tablet Take 2 tablets by mouth every morning (2 x 200 mg = 400 mg) 04/07/2023 Yes Reported, Patient hydrOXYzine (ATARAX) 25 MG tablet Take 1 tablet (25 mg) by mouth every 6 hours as needed for itching or anxiety (with pain, moderate pain) Unknown at PRN Yes Cj Chen MD levETIRAcetam (KEPPRA) 500 MG tablet Take 2 tablets by mouth 2 times daily (2 x 500 mg = 1,000 mg) 04/07/2023 at X1 Yes Reported, Patient Yes lisinopril-hydrochlorothiazide (ZESTORETIC) 10-12.5 MG tablet Take 1 tablet by mouth daily 3at PM Yes Reported, Patient Yes methotrexate 2.5 MG tablet Take 10 tablets by mouth every 7 days Wednesdays (10 x 2.5 mg = 25 mg) 04/06/2023 Yes Reported, Patient Yes oxyCODONE (ROXICODONE) 5 MG tablet Take 1-2 tablets (5-10 mg) by mouth every 4 hours as needed for moderate to severe pain Unknown at PRN Yes Renny Gtz PA-C predniSONE (DELTASONE) 5 MG tablet Take 1 tablet by mouth as needed Unknown at PRN Yes Reported, Patient senna-docusate (SENOKOT-S/PERICOLACE) 8.6-50 MG tablet Take 1 tablet by mouth 2 times daily as needed for constipation Unknown at PRN Yes Unknown, Entered By History No venlafaxine (EFFEXOR) 75 MG tablet Take 3 tablets by mouth 2 times daily (3 x 75 mg = 225 mg) 04/07/2023 at X1 Yes Reported, Patient Yes warfarin ANTICOAGULANT (COUMADIN) 2.5 MG tablet Take 2.5 mg by mouth daily 04/06/2023 Yes Unknown, Entered By History documented in this encounter Plan of Treatment Pending Results Name Type Priority Associated Diagnoses Date /Time Prepare red blood cells (unit) Blood Bank Routine 04/10/2023 8:39 PM CDT documented as of this encounter Goals Goal Patient Goal Type Associated Problems Recent Progress Patient-Stated? Author Total Joint Replacement Hip Pathway Care Plan Total Joint Replacement Hip Pathway No Octavia Beauchamp documented as of this encounter Procedures Procedure Name Priority Date/Time Associated Diagnosis Comments EXTRA GREEN TOP TUBE (LAB USE ONLY) Routine 04/12/2023 6:41 AM CDT INR Routine 04/12/2023 6:41 AM CDT HEMOGLOBIN Timed 04/12/2023 6:41 AM CDT HEMOGLOBIN Timed 04/11/2023 5:58 PM CDT INR Routine 04/11/2023 6:51 AM CDT PLATELET COUNT Routine 04/11/2023 6:51 AM CDT HEMOGLOBIN Timed 04/11/2023 6:51 AM CDT TRANSFUSE RED BLOOD CELLS (UNIT) Routine 04/10/2023 9:08 PM CDT PREPARE RED BLOOD CELLS (UNIT) Routine 04/10/2023 8:39 PM CDT PREPARE RED BLOOD CELLS (UNIT) Routine 04/10/2023 8:23 PM CDT TYPE AND SCREEN, ADULT Routine 8:04 PM CDT ABO/RH TYPE AND SCREEN Routine 8:[address] PELVIS SOFT TISSUE W CONTRAST STAT 04/10/2023 7:53 PM CDT HEMOGLOBIN Timed 04/10/2023 6:20 PM CDT INR Routine 04/10/2023 7:07 AM CDT GLUCOSE Routine 04/10/2023 7:07 AM CDT BASIC METABOLIC PANEL Routine 04/10/2023 7:07 AM CDT CBC WITH PLATELETS Routine 04/10/2023 7: 07 AM CDT INR Routine 04/09/2023 7:39 AM CDT BASIC METABOLIC PANEL Routine 04/09/2023 7:39 AM CDT CBC WITH PLATELETS Routine 04/09/2023 7: 39 AM CDT INR STAT 04/08/2023 6:15 PM CDT XR PELVIS AND HIP PORTABLE LEFT 1 VIEW STAT 04/08/2023 4:13 PM CDT CREATININE Routine 04/08/2023 3:36 PM CDT XR SURGERY RAAD FLUORO LESS THAN 5 MIN W STILLS Routine 04/08/2023 2:18 PM CDT REVISION, TOTAL ARTHROPLASTY, HIP 04/08/2023 9:37 AM CDT Periprosthetic hip fracture, initial encounter INR Timed 04/08/2023 3:57 AM CDT BASIC METABOLIC PANEL Timed 04/08/2023 3:57 AM CDT CBC WITH PLATELETS Timed 04/08/2023 3: [address] HIP LEFT W/O CONTRAST STAT 04/07/2023 4:06 PM CDT CBC WITH PLATELETS AND DIFFERENTIAL STAT 04/07/2023 2:54 PM CDT TYPE AND SCREEN, ADULT STAT 2:54 PM CDT CBC WITH PLATELETS & DIFFERENTIAL STAT 04/07/2023 2:54 PM CDT INR STAT 04/07/2023 2:54 PM CDT PARTIAL THROMBOPLASTIN TIME STAT 04/07/2023 2:54 PM CDT ABO/RH TYPE AND SCREEN STAT 2:54 PM CDT BASIC METABOLIC PANEL STAT 04/07/2023 2:54 PM CDT documented in this encounter Results * Extra Green Top Tube (LAB USE ONLY) (04/12/2023 6:41 AM CDT) Hold Specimen JIC 04/12/2023 7:48 AM CDT [facility] Blood STRUCTURE OF LEFT HAND / Unknown Venipuncture / Unknown 04/12/2023 6:41 AM CDT 04/12/2023 6:45 AM CDT Deyanira Locke MD LAB - BLOOD ORDERABL ES [facility] [address] Lab (1st floor, no room number) [place] [phone], [facility] [phone] * (ABNORMAL) Hemoglobin (04/12/2023 6:41 AM CDT) Hemoglobin 7.8(L) 11.7 - 15.7 g/dL 04/12/2023 6:49 AM CDT [facility] Blood STRUCTURE OF LEFT HAND / Unknown Venipuncture / Unknown 04/12/2023 6:41 AM CDT 04/12/2023 6:45 AM CDT Jonathan Linn MD LAB - BLOOD ORDERABL ES [facility] [address] Lab (1st floor, no room number) [place] [address], [facility] [phone] * (ABNORMAL) INR (04/12/2023 6:41 AM CDT) INR 1.28(H) 0.85 - 1.15 04/12/2023 6:58 AM CDT [facility] Blood STRUCTURE OF LEFT HAND / Unknown Venipuncture / Unknown 04/12/2023 6:41 AM CDT 04/12/2023 6:45 AM CDT Rohini Beal PA-C LAB - BLOOD ORDERA BLES LABORATORY [facility] [address] Lab (1st floor, no room number) [place] [phone], [facility] [phone] * (ABNORMAL) Hemoglobin (04/11/2023 5:58 PM CDT) Hemoglobin 7.6(L) 11.7 - 15.7 g/dL 04/11/2023 6:06 PM CDT [facility] Blood STRUCTURE OF RIGHT UPPER LIMB / Unknown Venipuncture / Unknown 04/11/2023 5:58 PM CDT 04/11/2023 6:01 PM CDT Jonathan Linn MD LAB - BLOOD ORDERABL ES Performing Organization Address [facility]/ZIP Co de Phone Number [facility] [address] Lab (1st floor, no room number) [place] [phone], [facility] [phone] * (ABNORMAL) INR (04/11/2023 6:51 AM CDT) INR 1.29(H) 0.85 - 1.15 04/11/2023 7:20 AM CDT [facility] Blood STRUCTURE OF RIGHT UPPER LIMB / Unknown Venipuncture / Unknown 04/11/2023 6:51 AM CDT 04/11/2023 7:03 AM CDT Rohini Beal PA-C LAB - BLOOD ORDERA BLES [facility] [address] Lab (1st floor, no room number) [place] [address], [facility] [phone] * Platelet count (04/11/2023 6:51 AM CDT) Platelet Count 383 150 - 450 10e3/uL 04/11/2023 7:06 AM CDT [facility] Blood STRUCTURE OF RIGHT UPPER LIMB / Unknown Venipuncture / Unknown 04/11/2023 6:51 AM CDT 04/11/2023 7:03 AM CDT Rohini Beal PA-C LAB - BLOOD ORDERA BLES LABORATORY [facility] [address] Lab (1st floor, no room number) [place] [phone], [facility] [phone] * (ABNORMAL) Hemoglobin (04/11/2023 6:51 AM CDT) Hemoglobin 7.7(L) 11.7 - 15.7 g/dL 04/11/2023 7:06 AM CDT [facility] Blood STRUCTURE OF RIGHT UPPER LIMB / Unknown Venipuncture / Unknown 04/11/2023 6:51 AM CDT 04/11/2023 7:03 AM CDT Jonathan Linn MD LAB - BLOOD ORDERABL ES Performing Organization Address [facility]/ZIP Co de Phone Number [facility] [address] Lab (1st floor, no room number) [place] [phone], [facility] [phone] * Transfuse red blood cells (unit) (04/10/2023 11:32 PM CDT) Isabel Hawthorne MD BLOOD TRANSFUSION OR DERABLES * Transfuse red blood cells (unit), 1 Units (04/10/2023 11:32 PM CDT) Isabel Hawthorne MD BLOOD TRANSFUSION OR DERABLES * Prepare red blood cells (unit) (04/10/2023 8:23 PM CDT) Blood Component Type Red Blood Cells [facility] BLOOD BANK Product Code [id number] RH BLOO D BANK Unit Status Transfused RH BLOO D BANK Unit Number [id number] RH B LOOD BANK CROSSMATCH Compatible RH BLOOD BANK CODING SYSTEM [id number] RH BLO OD BANK ISSUE DATE AND TIME [id number] RH BLOOD BANK UNIT ABO/RH A- RH BLOOD BANK UNIT TYPE ISBT 0600 RH BL OOD BANK 04/10/2023 8:23 PM CDT Isabel Hawthorne MD BLOOD BANK PRODUCT O RDERABLES Performing Organization Address City/[facility]/ZIP Co de Phone Number [facility] BLOOD BANK [address] [place] [address], [facility] * Adult Type and Screen (04/10/2023 8:04 PM CDT) ABO/RH(D) A NEG 04/10/2023 7:13 PM CDT RH BLOOD BANK Antibody Screen Negative Negative 04/10/2023 7:13 PM CDT RH BLOOD BANK SPECIMEN EXPIRATION DATE [id number] 04/10/2023 7:13 PM CDT RH BLOOD BANK Blood STRUCTURE OF RIGHT UPPER LIMB / Unknown Venipuncture / Unknown 04/10/2023 8:04 PM CDT 04/10/2023 8:06 PM CDT Drake Aburto MD LAB - BLOOD BANK RENITA T ORDER Performing Organization Address [facility] Co de Phone Number [facility] BLOOD BANK [address] [place] [address], [facility] * CT Pelvis Soft Tissue w Contrast (04/10/2023 7:53 PM CDT) Anatomical Region Laterality Modality Abdomen/Pelvis, SUBRAD CT DANTE DY, UMP CT ABDOMEN PELVIS, RAD CT Computed Tomography 04/10/2023 7:53 PM CDT Impressions 04/10/2023 8:08 PM CDT IMPRESSION: 1. ??No significant hematoma or site of bleeding. 2. ??Postoperative changes status post left hip arthroplasty crossing a comminuted intratrochanteric fracture. There are fluid collections surrounding the left femur posteriorly and in the superficial soft tissues most consistent with postoperative seromas. Narrative 04/10/2023 8:08 PM CDT EXAM: CT PELVIS SOFT TISSUE W CONTRAST LOCATION: [facility] DATE: 04/10/2023 INDICATION: Hgb 9 ??>6.8 after hip surgery. Soft BP. Concerning for bleeding or hematoma. COMPARISON: None. TECHNIQUE: CT scan of the pelvis was performed with IV contrast. Multiplanar reformats were obtained. Dose reduction techniques were used. CONTRAST: 100mL Isovue 370 FINDINGS: PELVIC ORGANS: No intrapelvic hematoma. The bladder is normal. Bowel loops are within normal limits. Probable gallstone visualized. Normal vasculature. MUSCULOSKELETAL: Postoperative changes from a left hip arthroplasty. Expected soft tissue air and fluid surrounding the arthroplasty component. The components stabilizing a comminuted fracture of the left femur. There is a postoperative seroma posterior to the proximal femur measuring 9.1 x 4.4 cm and a second postoperative seroma in the lateral soft tissues measuring 5.9 x 3.5 cm. No area of active bleeding and no significant hematoma evident. Procedure Note Chad Lehman MD - 04/10/2023 EXAM: CT PELVIS SOFT TISSUE W CONTRAST [facility] HOSPITAL DATE: 04/10/2023 INDICATION: Hgb 9 >6.8 after hip surgery. Soft BP. Concerning forbleeding or hematoma. COMPARISON: None. TECHNIQUE: CT scan of the pelvis was performed with IV contrast.Multiplanar reformats were obtained. Dose reduction techniques wereused. CONTRAST: 100mL Isovue 370 FINDINGS: PELVIC ORGANS: No intrapelvic hematoma. The bladder is normal. Bowel loopsare within normal limits. Probable gallstone visualized. Normalvasculature. MUSCULOSKELETAL: Postoperative changes from a left hip arthroplasty.Expected soft tissue air and fluid surrounding the arthroplasty component.The components stabilizing a comminuted fracture of the left femur. Thereis a postoperative seroma posterior to the proximal femur measuring 9.1 x 4.4 cm and a second postoperativeseroma in the lateral soft tissues measuring 5.9 x 3.5 cm. No area ofactive bleeding and no significant hematoma evident. IMPRESSION: 1. No significant hematoma or site of bleeding. 2. Postoperative changes status post left hip arthroplasty crossing acomminuted intratrochanteric fracture. There are fluid collectionssurrounding the left femur posteriorly and in the superficial soft tissuesmost consistent with postoperative seromas. Drake Aburto MD IMG CT ORDERABLES * (ABNORMAL) Hemoglobin (04/10/2023 6:20 PM CDT) Hemoglobin 6.8(LL) 11.7 - 15.7 g/dL 04/10/2023 6:38 PM CDT [facility] Blood STRUCTURE OF RIGHT UPPER LIMB / Unknown Venipuncture / Unknown 04/10/2023 6:20 PM CDT 04/10/2023 6:22 PM CDT Jonathan Linn MD LAB - BLOOD ORDERABL ES [facility] Lab [address] Lab (1st floor, no room number) [place] [address], [facility] [phone] * (ABNORMAL) Glucose (04/10/2023 7:07 AM CDT) Glucose 108(H) 70 - 99 mg/dL 04/10/2023 7:36 AM CDT [facility] Blood STRUCTURE OF RIGHT UPPER LIMB / Unknown Venipuncture / Unknown 04/10/2023 7:07 AM CDT 04/10/2023 7:12 AM CDT Jonathan Linn MD LAB - BLOOD ORDERABL ES [facility] Lab [address] Lab (1st floor, no room number) [place] [address], [place] [phone] * (ABNORMAL) INR (04/10/2023 7:07 AM CDT) INR 1.31(H) 0.85 - 1.15 04/10/2023 7:26 AM CDT [facility] Blood STRUCTURE OF RIGHT UPPER LIMB / Unknown Venipuncture / Unknown 04/10/2023 7:07 AM CDT 04/10/2023 7:12 AM CDT Rohini Beal PA-C LAB - BLOOD ORDERA BLES LABORATORY [facility] Lab [address] Lab (1st floor, no room number) [place] [address], [place] [phone] * (ABNORMAL) Basic metabolic panel (04/10/2023 7:07 AM CDT) Sodium 136 136 - 145 mmol/L 04/10/2023 7:36 AM CDT LABORATORY Potassium 4.4 3.4 - 5.3 mmol/L 04/10/2023 7:36 AM CDT LABORATORY Chloride 102 98 - 107 mmol/L 04/10/2023 7:36 AM CDT LABORATORY Carbon Dioxide (CO2) 27 22 - 29 mmol/L 04/10/2023 7:36 AM CDT LABORATORY Anion Gap 7 7 - 15 mmol/L 04/10/2023 7:36 AM CDT LABORATORY Urea Nitrogen 11.2 8.0 - 23.0 mg/dL 04/10/2023 7:36 AM CDT LABORATORY Creatinine 0.56 0.51 - 0.95 mg/dL 04/10/2023 7:36 AM CDT LABORATORY Calcium 8.5(L) 8.8 - 10.2 mg/dL 04/10/2023 7:36 AM CDT LABORATORY Glucose 108(H) 70 - 99 mg/dL 04/10/2023 7:36 AM CDT LABORATORY GFR Estimate >90 >60 mL/min/1.7 3m2 04/10/2023 7:36 AM CDT LABORATORY Blood STRUCTURE OF RIGHT UPPER LIMB / Unknown Venipuncture / Unknown 04/10/2023 7:07 AM CDT 04/10/2023 7:12 AM CDT Jonathan Linn MD LAB - BLOOD ORDERABL ES LABORATORY [facility] Lab [address] Lab (1st floor, no room number) [place] [address], [place] [phone] * (ABNORMAL) CBC with platelets (04/10/2023 7:07 AM CDT) WBC Count 9.5 4.0 - 11.0 10e3/uL 04/10/2023 7:22 AM CDT [facility] RBC Count 2.36(L) 3.80 - 5.20 10e6/uL 04/10/2023 7:22 AM CDT [facility] Hemoglobin 7.6(L) 11.7 - 15.7 g/dL 04/10/2023 7:22 AM CDT [facility] Hematocrit 23.4(L) 35.0 - 47.0 % 04/10/2023 7:22 AM CDT [facility] MCV 99 78 - 100 fL 04/10/2023 7:22 AM CDT [facility] MCH 32.2 26.5 - 33.0 pg 04/10/2023 7:22 AM CDT [facility] MCHC 32.5 31.5 - 36.5 g/dL 04/10/2023 7:22 AM CDT [facility] RDW 14.6 10.0 - 15.0 % 04/10/2023 7:22 AM CDT [facility] Platelet Count 417 150 - 450 10e3/uL 04/10/2023 7:22 AM CDT [facility] Blood STRUCTURE OF RIGHT UPPER LIMB / Unknown Venipuncture / Unknown 04/10/2023 7:07 AM CDT 04/10/2023 7:12 AM CDT Jonathan Linn MD LAB - BLOOD ORDERABL ES LABORATORY [facility] Lab [address] Lab (1st floor, no room number) [place] [address], [facility] [phone] * (ABNORMAL) INR (04/09/2023 7:39 AM CDT) INR 1.18(H) 0.85 - 1.15 04/09/2023 8:20 AM CDT [facility] Blood STRUCTURE OF RIGHT HAND / Unknown Venipuncture / Unknown 04/09/2023 7:39 AM CDT 04/09/2023 7:47 AM CDT Rohini Beal PA-C LAB - BLOOD ORDERA BLES LABORATORY [facility] Lab [address] Lab (1st floor, no room number) [place] [address], [facility] [phone] * (ABNORMAL) Basic metabolic panel (04/09/2023 7:39 AM CDT) Sodium 133(L) 136 - 145 mmol/L 04/09/2023 8:11 AM CDT LABORATORY Potassium 4.3 3.4 - 5.3 mmol/L 04/09/2023 8:11 AM CDT LABORATORY Chloride 99 98 - 107 mmol/L 04/09/2023 8:11 AM CDT LABORATORY Carbon Dioxide (CO2) 24 22 - 29 mmol/L 04/09/2023 8:11 AM CDT LABORATORY Anion Gap 10 7 - 15 mmol/L 04/09/2023 8:11 AM CDT LABORATORY Urea Nitrogen 11.4 8.0 - 23.0 mg/dL 04/09/2023 8:11 AM CDT LABORATORY Creatinine 0.52 0.51 - 0.95 mg/dL 04/09/2023 8:11 AM CDT LABORATORY Calcium 8.8 8.8 - 10.2 mg/dL 04/09/2023 8:11 AM CDT LABORATORY Glucose 149(H) 70 - 99 mg/dL 04/09/2023 8:11 AM CDT LABORATORY GFR Estimate >90 >60 mL/min/1.7 3m2 04/09/2023 8:11 AM CDT LABORATORY Blood STRUCTURE OF RIGHT HAND / Unknown Venipuncture / Unknown 04/09/2023 7:39 AM CDT 04/09/2023 7:47 AM CDT Jonathan Linn MD LAB - BLOOD ORDERABL ES LABORATORY [facility] Lab [address] Lab (1st floor, no room number) [place] [address], [facility] [phone] * (ABNORMAL) CBC with platelets (04/09/2023 7:39 AM CDT) WBC Count 16.6(H) 4.0 - 11.0 10e3/uL 04/09/2023 7:50 AM CDT [facility] RBC Count 2.79(L) 3.80 - 5.20 10e6/uL 04/09/2023 7:50 AM CDT [facility] Hemoglobin 9.1(L) 11.7 - 15.7 g/dL 04/09/2023 7:50 AM CDT [facility] Hematocrit 28.3(L) 35.0 - 47.0 % 04/09/2023 7:50 AM CDT [facility] MCV 101(H) 78 - 100 fL 04/09/2023 7:50 AM CDT [facility] MCH 32.6 26.5 - 33.0 pg 04/09/2023 7:50 AM CDT [facility] MCHC 32.2 31.5 - 36.5 g/dL 04/09/2023 7:50 AM CDT [facility] RDW 14.8 10.0 - 15.0 % 04/09/2023 7:50 AM CDT [facility] Platelet Count 618(H) 150 - 450 10e3/uL 04/09/2023 7:50 AM CDT [facility] Blood STRUCTURE OF RIGHT HAND / Unknown Venipuncture / Unknown 04/09/2023 7:39 AM CDT 04/09/2023 7:47 AM CDT Jonathan Linn MD LAB - BLOOD ORDERABL ES [facility] Lab [address] Lab (1st floor, no room number) [place] [address], [facility] [phone] * (ABNORMAL) INR (04/08/2023 6:15 PM CDT) INR 1.26(H) 0.85 - 1.15 04/08/2023 6:41 PM CDT [facility] Blood STRUCTURE OF RIGHT HAND / Unknown Venipuncture / Unknown 04/08/2023 6:15 PM CDT 04/08/2023 6:28 PM CDT Rohini Beal PA-C LAB - BLOOD ORDERA BLES LABORATORY [facility] Lab [address] Lab (1st floor, no room number) [place] [address], [facility] [phone] * XR Pelvis w Hip Port Left 1 View (04/08/2023 4:13 PM CDT) Anatomical Region Laterality Modality Abdomen/Pelvis Left Digital Radiogra phy Impressions 04/08/2023 4:18 PM CDT IMPRESSION: Status post left total hip arthroplasty revision with longstem femoral component. Periprosthetic fracture of the proximal femur with improved alignment. Expected postsurgical soft tissue edema, subcutaneous emphysema, and skin pepe. Normal joint alignment. Osteopenia. POLO GARCIA MD SYSTEM ID: [id number] Narrative 04/08/2023 4:18 PM CDT XR PELVIS AND HIP PORTABLE LEFT 1 VIEW ??04/08/2023 4:13 PM HISTORY: Status post Hip surgery COMPARISON: 03/25/2023 Procedure Note Polo Garcia MD - 04/08/2023 XR PELVIS AND HIP PORTABLE LEFT 1 VIEW 04/08/2023 4:13 PM HISTORY: Status post Hip surgery COMPARISON: 03/25/2023 IMPRESSION: Status post left total hip arthroplasty revision with longstem femoral component. Periprosthetic fracture of the proximal femur with improved alignment. Expected postsurgical soft tissue edema, subcutaneous emphysema, and skin pepe. Normal joint alignment. Osteopenia. POLO GARCIA MD SYSTEM ID: [id number] Rohini Beal PA-C IMG DIAGNOSTIC PARAM GING ORDERABLES * Creatinine (04/08/2023 3:36 PM CDT) Creatinine 0.54 0.51 - 0.95 mg/dL 04/08/2023 5:00 PM CDT [facility] GFR Estimate >90 >60 mL/min/1.73 m2 04/08/2023 5:00 PM CDT [facility] Blood STRUCTURE OF RIGHT HAND / Unknown Venipuncture / Unknown 04/08/2023 3:36 PM CDT 04/08/2023 4:40 PM CDT Rohini Beal PA-C LAB - BLOOD ORDERA BLES Performing Organization Address [facility]/ZIP Co de Phone Number [facility] [address] Lab (1st floor, no room number) [place] [address], [facility] [phone] * XR Surgery RAAD L/T 5 Min Fluoro w Stills (04/08/2023 2:18 PM CDT) Narrative [facility] - 04/08/2023 2:19 PM CDT This exam was marked as non-reportable because it will not be read by a radiologist or a [place] non-radiologist provider. Fazal Ramirez MD IMG DIAGNOSTIC PAARM GING ORDERABLES Performing Organization Address [facility] de Phone Number [facility] * (ABNORMAL) INR (04/08/2023 3:57 AM CDT) INR 1.39(H) 0.85 - 1.15 04/08/2023 4:28 AM CDT [facility] Blood STRUCTURE OF RIGHT UPPER LIMB / Unknown Venipuncture / Unknown 04/08/2023 3:57 AM CDT 04/08/2023 4:17 AM CDT Deyanira Locke MD LAB - BLOOD ORDERABL ES Performing Organization Address [facility] Co de Phone Number [facility] Lab [address] Lab (1st floor, no room number) [place] [address], [facility] [phone] * (ABNORMAL) CBC with platelets (04/08/2023 3:57 AM CDT) WBC Count 6.4 4.0 - 11.0 10e3/uL 04/08/2023 4:19 AM CDT [facility] RBC Count 2.93(L) 3.80 - 5.20 10e6/uL 04/08/2023 4:19 AM CDT [facility] Hemoglobin 9.6(L) 11.7 - 15.7 g/dL 04/08/2023 4:19 AM CDT [facility] Hematocrit 28.8(L) 35.0 - 47.0 % 04/08/2023 4:19 AM CDT [facility] MCV 98 78 - 100 fL 04/08/2023 4:19 AM CDT [facility] MCH 32.8 26.5 - 33.0 pg 04/08/2023 4:19 AM CDT [facility] MCHC 33.3 31.5 - 36.5 g/dL 04/08/2023 4:19 AM CDT [facility] RDW 14.8 10.0 - 15.0 % 04/08/2023 4:19 AM CDT [facility] Platelet Count 475(H) 150 - 450 10e3/uL 04/08/2023 4:19 AM CDT [facility] Blood STRUCTURE OF RIGHT UPPER LIMB / Unknown Venipuncture / Unknown 04/08/2023 3:57 AM CDT 04/08/2023 4:17 AM CDT Deyanira Locke MD LAB - BLOOD ORDERABL ES [facility] [address] [facility] Lab (1st floor, no room number) [place] [address], [facility] [phone] * (ABNORMAL) Basic metabolic panel (04/08/2023 3:57 AM CDT) Pathologist [facility] Sodium 136 136 - 145 mmol/L 04/08/2023 4:40 AM CDT [facility] Potassium 4.1 3.4 - 5.3 mmol/L 04/08/2023 4:40 AM CDT [facility] Chloride 103 98 - 107 mmol/L 04/08/2023 4:40 AM CDT LABORATORY Carbon Dioxide (CO2) 26 22 - 29 mmol/L 04/08/2023 4:40 AM CDT LABORATORY Anion Gap 7 7 - 15 mmol/L 04/08/2023 4:40 AM CDT LABORATORY Urea Nitrogen 12.2 8.0 - 23.0 mg/dL 04/08/2023 4:40 AM CDT LABORATORY Creatinine 0.51 0.51 - 0.95 mg/dL 04/08/2023 4:40 AM CDT LABORATORY Calcium 8.6(L) 8.8 - 10.2 mg/dL 04/08/2023 4:40 AM CDT LABORATORY Glucose 97 70 - 99 mg/dL 04/08/2023 4:40 AM CDT LABORATORY GFR Estimate >90 >60 mL/min/1.7 3m2 04/08/2023 4:40 AM CDT LABORATORY Blood STRUCTURE OF RIGHT UPPER LIMB / Unknown Venipuncture / Unknown 04/08/2023 3:57 AM CDT 04/08/2023 4:17 AM CDT Deyanira Locke MD LAB - BLOOD ORDERABL ES LABORATORY [facility] Lab [address] [facility] Lab (1st floor, no room number) [place] [address], [facility] [phone] * CT Hip Left w/o Contrast (04/07/2023 4:06 PM CDT) Anatomical Region Laterality Modality Abdomen/Pelvis, SUBRAD CT MSK, UMP CT MSK, RAD C T Computed Tomography Impressions 04/07/2023 4:49 PM CDT IMPRESSION: 1. ??Status post left total hip arthroplasty. There is an acute, displaced periprosthetic fracture of the intertrochanteric left femur, with adjacent soft tissue edema or hematoma. There is additional partially visualized hematoma in the soft tissues lateral to the left hip. 2. ??Diffuse osseous demineralization. 3. ??Cholelithiasis, partially visualized. JEROD YEAGER MD SYSTEM ID: ??[id number] Narrative 04/07/2023 4:[address] HIP LEFT WITHOUT CONTRAST 04/07/2023 4:06 PM INDICATION: Proximal femur fracture, evaluate fracture pattern. Hip pain. Fracture, known or rule out, or trauma. No fracture f/u or history of osteoarthritis. Hip x-ray result available. No known/automatically detected potential contraindications to imaging. COMPARISON: None. TECHNIQUE: Noncontrast. Axial, sagittal and coronal thin-section reconstruction. Dose reduction techniques were used. CONTRAST: None. FINDINGS: Status post left total hip arthroplasty. There is an acute periprosthetic fracture involving the intertrochanteric region with displacement of the lesser trochanteric fragment. There is surrounding soft tissue edema/hematoma. There is additional partially visualized hematoma in the soft tissues lateral to the left hip. There is diffuse osseous demineralization. There is cholelithiasis, partially visualized. Procedure Note Jerod Yeager MD - 04/07/2023 CT HIP LEFT WITHOUT CONTRAST 04/07/2023 4:06 PM INDICATION: Proximal femur fracture, evaluate fracture pattern. Hip pain. Fracture, known or rule out, or trauma. No fracture f/u or history of osteoarthritis. Hip x-ray result available. No known/automatically detected potential contraindications to imaging. COMPARISON: None. TECHNIQUE: Noncontrast. Axial, sagittal and coronal thin-section reconstruction. Dose reduction techniques were used. CONTRAST: None. FINDINGS: Status post left total hip arthroplasty. There is an acute periprosthetic fracture involving the intertrochanteric region with displacement of the lesser trochanteric fragment. There is surrounding soft tissue edema/hematoma. There is additional partially visualized hematoma in the soft tissues lateral to the left hip. There is diffuse osseous demineralization. There is cholelithiasis, partially visualized. IMPRESSION: 1. Status post left total hip arthroplasty. There is an acute, displaced periprosthetic fracture of the intertrochanteric left femur, with adjacent soft tissue edema or hematoma. There is additional partially visualized hematoma in the soft tissues lateral to the left hip. 2. Diffuse osseous demineralization. 3. Cholelithiasis, partially visualized. JEROD YEAGER MD SYSTEM ID: [id number] Trini AYON CT ORDERABLES * Adult Type and Screen (04/07/2023 2:54 PM CDT) ABO/RH(D) A NEG 04/07/2023 2:42 PM CDT RH BLOOD BANK Antibody Screen Negative Negative 04/07/2023 2:42 PM CDT RH BLOOD BANK SPECIMEN EXPIRATION DATE [id number] 04/07/2023 2:42 PM CDT RH BLOOD BANK Blood BLOOD SPECIMEN / Unknown Venipuncture / Unknown 04/07/2023 2:54 PM CDT 04/07/2023 3:02 PM CDT Rusty Schultz PA-C LAB - BLOOD B ANK TEST ORDER RH BLOOD BANK [address] [place] [address] * (ABNORMAL) CBC with platelets and differential (04/07/2023 2:54 PM CDT) WBC Count 7.3 4.0 - 11.0 10e3/uL 04/07/2023 3:05 PM CDT RH LAB[facility]AT[facility] RBC Count 3.40(L) 3.80 - 5.20 10e6/uL 04/07/2023 3:05 PM CDT RH LAB[facility]ORY Hemoglobin 11.0(L) 11.7 - 15.7 g/dL 04/07/2023 3:05 PM CDT RH LABOR[facility]ORY Hematocrit 33.7(L) 35.0 - 47.0 % 04/07/2023 3:05 PM CDT RH LAB[facility]ORY MCV 99 78 - 100 fL 04/07/2023 3:05 PM CDT RH LABORATORY MCH 32.4 26.5 - 33.0 pg 04/07/2023 3:05 PM CDT RH LAB[facility] MCHC 32.6 31.5 - 36.5 g/dL 04/07/2023 3:05 PM CDT RH [facility]ORY RDW 15.1(H) 10.0 - 15.0 % 04/07/2023 3:05 PM CDT RH [facility] Platelet Count 587(H) 150 - 450 10e3/uL 04/07/2023 3:05 PM CDT RH [facility] % Neutrophils 67 % 04/07/2023 3:05 PM CDT RH [facility] % Lymphocytes 22 % 04/07/2023 3:05 PM CDT RH [facility] % Monocytes 10 % 04/07/2023 3:05 PM CDT RH [facility] % Eosinophils 1 % 04/07/2023 3:05 PM CDT RH [facility] % Basophils 0 % 04/07/2023 3:05 PM CDT RH [facility] % Immature Granulocytes 0 % 04/07/2023 3:05 PM CDT RH LAB[facility]ATORY NRBCs per 100 WBC 0 <1 /100 023 3:05 PM CDT RH LAB[facility]ORY Absolute Neutrophils 4.9 1.6 - 8.3 10e3/uL 04/07/2023 3:05 PM CDT RH LAB[facility] Absolute Lymphocytes 1.6 0.8 - 5.3 10e3/uL 04/07/2023 3:05 PM CDT RH LABOR[facility] Absolute Monocytes 0.7 0.0 - 1.3 10e3/uL 04/07/2023 3:05 PM CDT RH LAB[facility] Absolute Eosinophils 0.1 0.0 - 0.7 10e3/uL 04/07/2023 3:05 PM CDT RH LAB[facility] Absolute Basophils 0.0 0.0 - 0.2 10e3/uL 04/07/2023 3:05 PM CDT RH LAB[facility] Absolute Immature Granulocytes 0.0 <=0.4 10e3/uL 04/07/2023 3:05 PM CDT RH [facility] Absolute NRBCs 0.0 10e3/uL 04/07/2023 3:05 PM CDT RH [facility] Blood BLOOD SPECIMEN / Unknown Venipuncture / Unknown 04/07/2023 2:54 PM CDT 04/07/2023 3:02 PM CDT Rusty Schultz PA-C LAB - BLOOD O RDERABLES RH LABORATORY [facility] [address] Lab (1st floor, no room number) [place] [address], [facility] [phone] * (ABNORMAL) Basic metabolic panel (BMP) (04/07/2023 2:54 PM CDT) [facility] Sodium 135(L) 136 - 145 mmol/L 04/07/2023 3:38 PM CDT RH LABORATORY Potassium 4.3 3.4 - 5.3 mmol/L 04/07/2023 3:38 PM CDT RH LABORATORY Chloride 100 98 - 107 mmol/L 04/07/2023 3:38 PM CDT RH LAB[facility]AT[facility] Carbon Dioxide (CO2) 25 22 - 29 mmol/L 04/07/2023 3:38 PM CDT RH LABORATORY Anion Gap 10 7 - 15 mmol/L 04/07/2023 3:38 PM CDT RH LAB[facility] Urea Nitrogen 11.9 8.0 - 23.0 mg/dL 04/07/2023 3:38 PM CDT RH LABORATORY Creatinine 0.57 0.51 - 0.95 mg/dL 04/07/2023 3:38 PM CDT RH LAB[facility]ATORY Calcium 9.3 8.8 - 10.2 mg/dL 04/07/2023 3:38 PM CDT RH LABORATORY Glucose 91 70 - 99 mg/dL 04/07/2023 3:38 PM CDT RH LABORATORY GFR Estimate >90 >60 mL/min/1.7 3m2 04/07/2023 3:38 PM CDT RH LAB[facility] Blood BLOOD SPECIMEN / Unknown Venipuncture / Unknown 04/07/2023 2:54 PM CDT 04/07/2023 3:02 PM CDT Rusty Schultz PA-C LAB - BLOOD Luis M BAÑUELOS LABORATORY [facility] [address] Lab (1st floor, no room number) [place] [address], [facility] [phone] * Partial thromboplastin time (04/07/2023 2:54 PM CDT) aPTT 33 22 - 38 Seconds 04/07/2023 3:15 PM CDT RH LABORATORY Blood BLOOD SPECIMEN / Unknown Venipuncture / Unknown 04/07/2023 2:54 PM CDT 04/07/2023 3:02 PM CDT Rusty Schultz PA-C LAB - BLOOD O EDDA [facility] Lab [address] Lab (1st floor, no room number) [place] [address], [facility] [phone] * (ABNORMAL) INR (04/07/2023 2:54 PM CDT) INR 1.40(H) 0.85 - 1.15 04/07/2023 3:14 PM CDT LABORATORY Blood BLOOD SPECIMEN / Unknown Venipuncture / Unknown 04/07/2023 2:54 PM CDT 04/07/2023 3:02 PM CDT Rusty Schultz PA-C LAB - BLOOD O RDERABLES [facility] Lab [address] Lab (1st floor, no room number) [place] [address], [facility] [phone] documented in this encounter Visit Diagnoses Diagnosis Periprosthetic hip fracture, initial encounter- Primary Periprosthetic hip fracture, initial encounter Anemia due to blood loss, acute Acute posthemorrhagic anemia Status post hip replacement, unspecified laterality documented in this encounter Admitting Diagnoses Diagnosis Periprosthetic hip fracture, initial encounter documented in this encounter Administered Medications Inactive Administered Medications - up to 3 most recent administrations Medication Order MAR Action Action Date Dose Rate Site acetaminophen (TYLENOL) tablet 650 mg 650 mg, Oral, EVERY 4 HOURS PRN, other, mild pain, fever, mild pain, Starting on Esme 04/07/23 at 1932, Maximum acetaminophen dose from all sources = 75 mg/kg/day not to exceed 4 grams/day. $Given 04/08/2023 5:26 AM CDT 650 mg acetaminophen (TYLENOL) tablet 650 mg 650 mg, Oral, EVERY 4 HOURS PRN, other, For optimal non-opioid multimodal pain management to improve pain control., Starting on 04/11/23 at 0000, May give first dose 4 hours after last scheduled dose of acetaminophen (TYLENOL). Maximum acetaminophen dose from all sources = 75 mg/kg/day not to exceed 4 grams/day. $Given 04/11/2023 11:09 PM CDT 650 mg acetaminophen (TYLENOL) tablet 975 mg 975 mg, Oral, EVERY 8 HOURS, First dose on Tue04/08/23 at 1530, For 3 days, Administer for multimodal surgical pain management. Maximum acetaminophen dose from all sources = 75 mg/kg/day not to exceed 4 grams/day. $Given 04/11/2023 8:54 AM CDT 975 mg $Given 04/10/2023 11:29 PM CDT 975 mg $Given 04/10/2023 3:40 PM CDT 975 mg calcium carbonate (TUMS) chewable tablet 500 mg 500 mg, Oral, DAILY PRN, heartburn, Starting on Tue04/11/23 at 0929 $Given 04/11/2023 10:10 AM CDT 500 mg ceFAZolin (ANCEF) 2 g in 100 mL D5W intermittent infusion Routine, 2 g, Intravenous, EVERY 8 HOURS, First dose on Tue04/08/23 at 2200, For 2 doses, First post-op dose due 8 hours after intra-op dose, see eMAR. , Indications: Perioperative Pharmacoprophylaxis $New Bag 04/09/2023 5:53 AM CDT 2 g 200 mL/hr $New Bag 04/08/2023 10:39 PM CDT 2 g 200 mL/hr enoxaparin ANTICOAGULANT (LOVENOX) injection 40 mg 40 mg, Subcutaneous, EVERY 24 HOURS, First dose on Tue04/09/23 at 0800, Check to make sure start date/time is 12-24 hours post op unless documented complication, AND no sooner than 22 hours post op if spinal anesthesia used. Continue until discharge to home. HOLD if platelet count falls below 50% of baseline or less than 100,000/??L and notify provider. $Given 04/12/2023 9:2 2 AM CDT 40 mg $Given 04/11/2023 8:44 AM CDT 40 mg Ab dominal Tissue $Given 04/10/2023 8:06 AM CDT 40 mg Ri ght Lower Abdomen fentaNYL (PF) (SUBLIMAZE) injection 50 mcg 50 mcg, Intravenous, ONCE, Administer over 3-5 Minutes, On Tue04/08/23 at 0900, For 1 dose, Pre-procedure $Given 04/08/2023 8:42 AM CDT 50 mcg fentaNYL (PF) (SUBLIMAZE) injection 50 mcg 50 mcg, Intravenous, EVERY 5 MIN PRN, severe pain, Give fentaNYL (SUBLIMAZE) first if HYDROmorphone (DILAUDID) also ordered., Starting on Tue04/08/23 at 1520, Administer fentaNYL (SUBLIMAZE) for acute pain control. Move to HYDROmorphone (DILAUDID): - IF patient has received up to 200 mcg of fentaNYL (SUBLIMAZE), OR - IF patient has received 2 doses of fentaNYL (SUBLIMAZE) AND continues to have severe pain (pain score greater than or equal to seven (7) or is unable to participate in post op recovery due to pain. Wait 5 minutes AFTER last fentaNYL (SUBLIMAZE) dose before administering HYDROmorphone (DILADUDID). Postop Anesthesia Phase I only. Notify Provider to assess for uncontrolled pain or analgesic side effects. DO NOT revert back to fentanyl (SUBLIMAZE) after administering HYDROmorphone (DILAUDID)., PACU $Given 04/08/2023 4:07 PM CDT 50 mcg $Given 04/08/2023 3:51 PM CDT 50 mcg folic acid (FOLVITE) tablet 1 mg 1 mg, Oral, DAILY, First dose on Tue04/08/23 at 0800 $Given 04/12/2023 9:23 AM CDT 1 mg $Given 04/11/2023 8:43 AM CDT 1 mg $Given 04/10/2023 8:04 AM CDT 1 mg HYDROmorphone (DILAUDID) half-tab 1-2 mg 1-2 mg, Oral, EVERY 3 HOURS PRN, severe pain, Starting on Tue04/09/23 at 0935 $Given 04/12/2023 12:06 AM CDT 1 mg $Given 04/11/2023 8:42 AM CDT 1 mg $Given 04/10/2023 10:31 PM CDT 1 mg HYDROmorphone (DILAUDID) injection 0.2 mg 0.2 mg, Intravenous, EVERY 2 HOURS PRN, moderate pain, Starting on Tue04/08/23 at 1520, IF patient unable to take oral pain medication or pain not controlled with oral analgesics. Hold IV PRN opioid dose for analgesic side effects. Notify provider to assess for uncontrolled pain or analgesic side effects. $Given 04/09/2023 1:35 AM CDT 0.2 mg $Given 04/08/2023 8:10 PM CDT 0.2 mg HYDROmorphone (DILAUDID) injection 0.4 mg 0.4 mg, Intravenous, EVERY 5 MIN PRN, severe pain, Starting on Tue04/08/23 at 1520, Use FentaNYL (SUBLIMAZE) first if ordered. Maximum total cumulative dose NOT to exceed 2 mg. DO NOT revert back to fentanyl (SUBLIMAZE) after administering HYDROmorphone (DILAUDID). Notify Provider to assess for uncontrolled pain or analgesic side effects., PACU $Given 04/08/2023 5:25 PM CDT 0.4 mg $Given 04/08/2023 4:59 PM CDT 0.4 mg $Given 04/08/2023 4:47 PM CDT 0.4 mg HYDROmorphone (DILAUDID) injection 0.4 mg 0.4 mg, Intravenous, EVERY 2 HOURS PRN, severe pain, Starting on Tue04/08/23 at 1520, IF patient unable to take oral pain medication or pain not controlled with oral analgesics. Hold IV PRN opioid dose for analgesic side effects. Notify provider to assess for uncontrolled pain or analgesic side effects. $Given 04/09/2023 2:12 PM CDT 0.4 mg $Given 04/09/2023 8:46 AM CDT 0.4 mg $Given 04/09/2023 4:14 AM CDT 0.4 mg HYDROmorphone (PF) (DILAUDID) injection 0.3 mg 0.3 mg, Intravenous, EVERY 2 HOURS PRN, moderate pain, Starting on Esme 04/07/23 at 1932 $Given 04/08/2023 8:13 AM CDT 0.3 mg $Given 04/08/2023 3:28 AM CDT 0.3 mg $Given 04/08/2023 12:56 AM CDT 0.3 mg HYDROmorphone (PF) (DILAUDID) injection 0.3 mg 0.3 mg, Intravenous, ONCE, On 04/09/23 at 0600, For 1 dose $Given 04/09/2023 5:51 AM CDT 0.3 mg hydroxychloroquine (PLAQUENIL) tablet 400 mg Routine, 400 mg, Oral, EVERY MORNING, First dose on Tue04/08/23 at 0800, Indications: RA $Given 04/12/2023 9:23 AM CDT 400 mg $Given 04/11/2023 8:43 AM CDT 400 mg $Given 04/10/2023 8:05 AM CDT 400 mg hydrOXYzine (ATARAX) tablet 25 mg 25 mg, Oral, EVERY 6 HOURS PRN, itching, anxiety, with pain, moderate pain, Starting on Tue04/07/23 at 1932 $Given 04/11/2023 8:47 PM CDT 25 mg $Given 04/10/2023 11:29 PM CDT 25 mg $Given 04/10/2023 3:40 PM CDT 25 mg iopamidol (ISOVUE-370) solution 500 mL 500 mL, Intravenous, ONCE, On Tue04/10/23 at 2000, For 1 dose $Given 04/10/2023 7:46 PM CDT 100 mLs lactated ringers infusion at 10 mL/hr, Intravenous, CONTINUOUS, IF patient NOT on dialysis., Pre-procedure, Starting on Tue04/08/23 at 0900, Until Tue04/08/23 at 1513 $New Bag 04/08/2023 12:30 PM CDT $New Bag 04/08/2023 8:42 AM CDT 10 mL/hr lactated ringers infusion at 75 mL/hr, Intravenous, CONTINUOUS, Change to saline lock when PO well tolerated., Starting on Tue04/08/23 at 1530, Until Tue04/12/23 at 1338 $New Bag 04/09/2023 5:29 AM CDT 75 mL/hr $New Bag 04/08/2023 6:11 PM CDT 75 mL/hr levETIRAcetam (KEPPRA) tablet 1,000 mg 1,000 mg, Oral, 2 TIMES DAILY, First dose on Tue04/07/23 at 2000 $Given 04/12/2023 9:23 AM CDT 1,000 mg $Given 04/11/2023 8:42 PM CDT 1,000 mg $Given 04/11/2023 8:43 AM CDT 1,000 mg melatonin tablet 1 mg 1 mg, Oral, AT BEDTIME PRN, sleep, Starting on Esme 04/07/23 at 1932, Do not give unless at least 6 hours of uninterrupted sleep is expected. $Given 04/11/2023 8:47 PM CDT 1 mg $Given 04/10/2023 10:30 PM CDT 1 mg methocarbamol (ROBAXIN) tablet 500 mg 500 mg, Oral, 4 TIMES DAILY PRN, muscle spasms, Starting on Esme 04/07/23 at 1932 $Given 04/11/2023 10:37 PM CDT 500 mg $Given 04/10/2023 9:30 PM CDT 500 mg $Given 04/09/2023 8:00 PM CDT 500 mg naloxone (NARCAN) injection 0.2 mg 0.2 mg, Intravenous, EVERY 2 MIN PRN, opioid reversal, Starting on [facility] 04/07/23 at 1944, Administer intravenous route when available and notify provider when administered. For unintended sedation or respiratory depression if all of the below criteria are met: ~ respiratory rate LESS than or EQUAL to 8. ~SaO2 less than 92% and or/end-tidal CO2 is greater than 50. ~ the patient is receiving an opioid, has unintended sedations assessed as RASS (-3), and is currently not on mechanical ventilation. RASS scale moderate (-3) is movement or eye opening to voice but no eye contact. Patient Monitoring Once the patient has demonstrated a response to the naloxone, continue to monitor respiratory rate, depth, oxygen saturation and end-tidal CO2 (if available) every 15 minutes x 2, then every 30 minutes x 2, then every 1 hour x 1 after each naloxone dose. Consider transfer to ICU if patient respiratory parameters have not improved after 4 naloxone doses. naloxone (NARCAN) injection 0.2 mg 0.2 mg, Intramuscular, EVERY 2 MIN PRN, opioid reversal, Starting on [facility] 04/07/23 at 1944, Administer intramuscular if an intravenous route is not available and notify provider when administered. For unintended sedation or respiratory depression if all of the below criteria are met: ~ respiratory rate LESS than or EQUAL to 8. ~SaO2 less than 92% and or/end-tidal CO2 is greater than 50. ~ the patient is receiving an opioid, has unintended sedations assessed as RASS (-3), and is currently not on mechanical ventilation. RASS scale moderate (-3) is movement or eye opening to voice but no eye contact. Patient Monitoring Once the patient has demonstrated a response to the naloxone, continue to monitor respiratory rate, depth, oxygen saturation and end-tidal CO2 (if available) every 15 minutes x 2, then every 30 minutes x 2, then every 1 hour x 1 after each naloxone dose. Consider transfer to ICU if patient respiratory parameters have not improved after 4 naloxone doses. naloxone (NARCAN) injection 0.4 mg 0.4 mg, Intravenous, EVERY 2 MIN PRN, opioid reversal, Starting on Esme 04/07/23 at 1944, Administer intravenous route when available and notify provider when administered. For unintended sedation or respiratory depression if all of the below criteria are met: ~ respiratory rate LESS than or EQUAL to 8. ~ SaO2 less than 92% and or/end-tidal CO2 is greater than 50. ~ the patient is receiving an opioid, has unintended sedation assessed as RASS (-4) or (-5) and patient is currently not on mechanical ventilation. RASS scale (-4) is deep sedation with no response to voice but movement or eye opening to physical stimulation. RASS scale (-5) is unarousable. Patient Monitoring Once the patient has demonstrated a response to the naloxone, continue to monitor respiratory rate, depth, oxygen saturation and end-tidal CO2 (if available) every 15 minutes x 2, then every 30 minutes x 2, then every 1 hour x 1 after each naloxone dose. Consider transfer to ICU if patient respiratory parameters have not improved after 4 naloxone doses. naloxone (NARCAN) injection 0.4 mg 0.4 mg, Intramuscular, EVERY 2 MIN PRN, opioid reversal, Starting on Esme 04/07/23 at 1944, Administer intramuscular if an intravenous route is not available and notify provider when administered. For unintended sedation or respiratory depression if all of the below criteria are met: ~ respiratory rate LESS than or EQUAL to 8. ~ SaO2 less than 92% and or/end-tidal CO2 is greater than 50. ~ the patient is receiving an opioid, has unintended sedation assessed as RASS (-4) or (-5) and patient is currently not on mechanical ventilation. RASS scale (-4) is deep sedation with no response to voice but movement or eye opening to physical stimulation. RASS scale (-5) is unarousable. Patient Monitoring Once the patient has demonstrated a response to the naloxone, continue to monitor respiratory rate, depth, oxygen saturation and end-tidal CO2 (if available) every 15 minutes x 2, then every 30 minutes x 2, then every 1 hour x 1 after each naloxone dose. Consider transfer to ICU if patient respiratory parameters have not improved after 4 naloxone doses. naproxen (NAPROSYN) tablet 250 mg 250 mg, Oral, 2 TIMES DAILY WITH MEALS, First dose on 04/09/23 at 1330, Give with food. $Given 04/12/2023 9:23 AM CDT 250 mg $Given 04/11/2023 6:06 PM CDT 250 mg $Given 04/11/2023 8:43 AM CDT 250 mg ondansetron (ZOFRAN ODT) ODT tab 4 mg 4 mg, Oral, EVERY 6 HOURS PRN, nausea, vomiting, Starting on Tue04/08/23 at 1520, This is Step 1 of nausea and vomiting management. If nausea not resolved in 15 minutes, go to Step 2 prochlorperazine (COMPAZINE). Do not push through foil backing. Peel back foil and gently remove. Place on tongue immediately. Administration with liquid unnecessary With dry hands, peel back foil backing and gently remove tablet. Do not push oral disintegrating tablet through foil backing. Administer immediately on tongue and oral disintegrating tablet dissolves in seconds, then swallow with saliva. Liquid not required. ondansetron (ZOFRAN) injection 4 mg 4 mg, Intravenous, EVERY 6 HOURS PRN, nausea, vomiting, Administer over 2-5 Minutes, Starting on Tue04/08/23 at 1520, This is Step 1 of nausea and vomiting management. If nausea not resolved in 15 minutes, go to Step 2 prochlorperazine (COMPAZINE). Irritant. oxyCODONE (ROXICODONE) tablet 10 mg 10 mg, Oral, EVERY 4 HOURS PRN, severe pain, Starting on Tue04/08/23 at 1520, Hold oral PRN dose for analgesic side effects. Notify provider to assess for uncontrolled pain or analgesic side effects. Hold while on IV SEASONER or with regular IV opioid dosing., , On hold since 04/09/2023 at 0936 until manually unheld $Given 04/09/2023 7:02 AM CDT 10 mg $Given 04/09/2023 3:02 AM CDT 10 mg oxyCODONE (ROXICODONE) tablet 5 mg 5 mg, Oral, ONCE, On Esme 04/07/23 at 1445, For 1 dose $Given 04/07/2023 2:46 PM CDT 5 mg oxyCODONE (ROXICODONE) tablet 5 mg 5 mg, Oral, EVERY 4 HOURS PRN, moderate pain, Starting on Tue04/08/23 at 1520, Hold oral PRN dose for analgesic side effects. Notify provider to assess for uncontrolled pain or analgesic side effects. Hold while on IV SEASONER or with regular IV opioid dosing., , On hold since 04/09/2023 at 0936 until manually unheld $Given 04/08/2023 10:38 PM CDT 5 mg oxyCODONE (ROXICODONE) tablet 5-10 mg 5-10 mg, Oral, EVERY 4 HOURS PRN, moderate pain, Starting on Esme 04/07/23 at 1932 $Given 04/08/2023 6:31 AM CDT 10 mg $Given 04/08/2023 2:25 AM CDT 10 mg $Given 04/07/2023 9:41 PM CDT 5 mg polyethylene glycol (MIRALAX) Packet 17 g 17 g, Oral, DAILY, First dose on 04/09/23 at 0800, To prevent constipation. Mixed prescribed dose in 8 ounces of water, juice or soda. Administer daily starting at 0900 on POD 1. Hold for loose stools. 1 Packet = 17 grams. Mix each gram with at least 1/2 ounce (15 mL) of water - 8 ounces for 17 g dose, 4 ounces for 8.5 g dose, 2 ounces for 4 g dose. Follow with the same volume of water. Hold for loose stools unless being administered as part of a bowel prep regimen or bowel clean out. $Given 04/12/2023 9:24 AM CDT 17 g $Given 04/10/2023 8:06 AM CDT 17 g $Given 04/09/2023 8:47 AM CDT 17 g prochlorperazine (COMPAZINE) injection 10 mg 10 mg, Intravenous, EVERY 6 HOURS PRN, nausea, vomiting, Administer over 1-2 Minutes, Starting on Esme 04/07/23 at 1932, IF patient unable to tolerate oral medication. This is Step 2 of nausea and vomiting management. Give if nausea not resolved 15 minutes after giving ondansetron (ZOFRAN). prochlorperazine (COMPAZINE) suppository 25 mg 25 mg, Rectal, EVERY 12 HOURS PRN, nausea, vomiting, Starting on Esme 04/07/23 at 1932, This is Step 2 of nausea and vomiting management. Give if nausea not resolved 15 minutes after giving ondansetron (ZOFRAN). prochlorperazine (COMPAZINE) tablet 10 mg 10 mg, Oral, EVERY 6 HOURS PRN, vomiting, Starting on Esme 04/07/23 at 1932, This is Step 2 of nausea and vomiting management. Give if nausea not resolved 15 minutes after giving ondansetron (ZOFRAN). senna-docusate (SENOKOT-S/PERICOLACE) 8.6-50 MG per tablet 1 tablet 1 tablet, Oral, 2 TIMES DAILY, First dose on Tue04/07/23 at 2000, Hold for loose stools. $Given 04/07/2023 8:52 PM CDT 1 tablet senna-docusate (SENOKOT-S/PERICOLACE) 8.6-50 MG per tablet 1 tablet 1 tablet, Oral, 2 TIMES DAILY PRN, constipation, Starting on Esme 04/07/23 at 1932, If no bowel movement in 24 hours, increase to 2 tablets by mouth. IF more than 1 constipation PRN medication is ordered, administer step-navarro as indicated, moving to the next step ONLY if prior step ineffective. Step 1: senna-docusate (SENOKOT-S; PERICOLACE) OR bisacodyl (DULCOLAX) EC tablet Step 2: magnesium hydroxide (MILK OF MAGNESIA) OR polyethylene glycol (MIRALAX/GLYCOLAX) Step 3: bisacodyl (DULCOLAX) suppository Step 4: sodium phosphate (FLEET ENEMA) Hold for loose stools. senna-docusate (SENOKOT-S/PERICOLACE) 8.6-50 MG per tablet 1 tablet 1 tablet, Oral, 2 TIMES DAILY, First dose on Tue04/08/23 at 2000, To prevent constipation. Hold for loose stools Hold for loose stools. $Given 04/12/2023 9:23 AM CDT 1 tablet $Given 04/11/2023 8:43 AM CDT 1 tablet $Given 04/10/2023 8:11 PM CDT 1 tablet senna-docusate (SENOKOT-S/PERICOLACE) 8.6-50 MG per tablet 2 tablet 2 tablet, Oral, 2 TIMES DAILY PRN, constipation, Starting on Tue04/07/23 at 1932, IF more than 1 constipation PRN medication is ordered, administer step-navarro as indicated, moving to the next step ONLY if prior step ineffective. Step 1: senna-docusate (SENOKOT-S; PERICOLACE) OR bisacodyl (DULCOLAX) EC tablet Step 2: magnesium hydroxide (MILK OF MAGNESIA) OR polyethylene glycol (MIRALAX/GLYCOLAX) Step 3: bisacodyl (DULCOLAX) suppository Step 4: sodium phosphate (FLEET ENEMA) Hold for loose stools. sodium chloride (PF) 0.9% PF flush 3 mL 3 mL, Intracatheter, EVERY 8 HOURS, First dose on Tue04/07/23 at 2000, to lock peripheral IV dormant line $Given 04/08/2023 8:11 PM CDT 3 mLs $Given 04/07/2023 8:56 PM CDT 3 mLs sodium chloride (PF) 0.9% PF flush 3 mL 3 mL, Intracatheter, EVERY 1 MIN PRN, line flush, other, to ensure patency or to lock dormant line, Starting on Tue04/07/23 at 1932 $Given 04/09/2023 2:12 PM CDT 3 mLs sodium chloride (PF) 0.9% PF flush 3 mL 3 mL, Intracatheter, EVERY 8 HOURS, First dose on Tue04/08/23 at 1530, to lock peripheral IV dormant line $Given 04/11/2023 4:49 PM CDT 3 mLs $Given 04/11/2023 8:54 AM CDT 3 mLs $Given 04/10/2023 11:33 PM CDT 3 mLs sodium chloride 0.9% infusion at 100 mL/hr, Intravenous, CONTINUOUS, Starting on Tue04/07/23 at 2000, Until Tue04/12/23 at 1338 Rate/Dose Verify 04/08/2023 12:59 AM CDT 100 mL/hr $New Bag 04/07/2023 8:56 PM CDT 100 mL/hr sodium chloride 0.9% infusion at 100 mL/hr, Intravenous, CONTINUOUS, Starting on 04/09/23 at 1630, Until 04/10/23 at 0229 Shift Total 04/09/2023 6:51 PM CDT 100 mL/hr $New Bag 04/09/2023 4:28 PM CDT 1,000 mLs 100 mL/hr sodium chloride for CT scan flush use Intravenous, 100 mL, ONCE, On 04/10/23 at 2000, For 1 dose, This entry is for use by Radiology to intermittently used as a flush in patients receiving a CT scan. $Given 04/10/2023 7:46 PM CDT 60 mLs venlafaxine (EFFEXOR) tablet 225 mg 225 mg, Oral, 2 TIMES DAILY, First dose on Esme 04/07/23 at 2000 $Given 04/12/2023 9:24 AM CDT 225 mg $Given 04/11/2023 8:42 PM CDT 225 mg $Given 04/11/2023 8:44 AM CDT 225 mg warfarin ANTICOAGULANT (COUMADIN) tablet 2.5 mg 2.5 mg, Oral, ONCE, On Tue04/08/23 at 1930, For 1 dose $Given 04/08/2023 8:09 PM CDT 2.5 mg warfarin ANTICOAGULANT (COUMADIN) tablet 5 mg 5 mg, Oral, ONCE AT 6PM, On 04/09/23 at 1800, For 1 dose $Given 04/09/2023 6:51 PM CDT 5 mg warfarin ANTICOAGULANT (COUMADIN) tablet 5 mg 5 mg, Oral, ONCE AT 6PM, On 04/10/23 at 1800, For 1 dose $Given 04/10/2023 5:54 PM CDT 5 mg warfarin ANTICOAGULANT (COUMADIN) tablet 6 mg 6 mg, Oral, ONCE AT 6PM, On 04/11/23 at 1800, For 1 dose $Given 04/11/2023 6:06 PM CDT 6 mg documented in this encounter Active and Recently Administered Medications Times are shown in CDT. Scheduled Medication Order 04/10/2023 04/11/2023 04/12/2023 acetaminophen (TYLENOL) tablet 975 mg (COMPLETED) 975 mg, Oral, EVERY 8 HOURS, First dose on Tue04/08/23 at 1530, For 3 days, Administer for multimodal surgical pain management. Maximum acetaminophen dose from all sources = 75 mg/kg/day not to exceed 4 grams/day. 0805 ($Given - Provider: Arnold Stevenson RN)1540 ($Given - Provider: Arnold Stevenson RN)2329 ($Given - Provider: Alonso Montoya RN) 0854 ($Given - Provider: Akosua Thrasher RN) enoxaparin ANTICOAGULANT (LOVENOX) injection 40 mg 40 mg, Subcutaneous, EVERY 24 HOURS, First dose on Tue04/09/23 at 0800, Check to make sure start date/time is 12-24 hours post op unless documented complication, AND no sooner than 22 hours post op if spinal anesthesia used. Continue until discharge to home. HOLD if platelet count falls below 50% of baseline or less than 100,000/??L and notify provider. 0806 ($Given - Provider: Arnold Stevenson RN) 0844 ($Given - Provider: Akosua Thrasher RN) 0922 ($Given - Provider: Melissa Alberto, SRAVANI) folic acid (FOLVITE) tablet 1 mg 1 mg, Oral, DAILY, First dose on Tue04/08/23 at 0800 0804 ($Given - Provider: Arnold Stevenson RN) 0843 ($Given - Provider: Akosua Thrahser RN) 0923 ($Given - Provider: Melissa Alberto RN) hydroxychloroquine (PLAQUENIL) tablet 400 mg Routine, 400 mg, Oral, EVERY MORNING, First dose on Tue04/08/23 at 0800, Indications: RA 0805 ($Given - Provider: Arnold Stevenson RN) 0843 ($Given - Provider: Akosua Thrasher RN) 0923 ($Given - Provider: Melissa Alberto RN) iopamidol (ISOVUE-370) solution 500 mL (COMPLETED) 500 mL, Intravenous, ONCE, On Tue04/10/23 at 2000, For 1 dose 194 ($Given - Provider: Deanna Frankel) levETIRAcetam (KEPPRA) tablet 1,000 mg 1,000 mg, Oral, 2 TIMES DAILY, First dose on Esme 04/07/23 at 2000 0805 ($Given - Provider: Arnold Stevenson RN)2010 ($Given - Provider: Alonso Montoay, SRAVANI) 0843 ($Given - Provider: Akosua Thrasher, SRAVANI)2041 ($Given - Provider: Elizabeth Deleon, SRAVANI) 0923 ($Given - Provider: Melissa Alberto, SRAVANI) naproxen (NAPROSYN) tablet 250 mg 250 mg, Oral, 2 TIMES DAILY WITH MEALS, First dose on 04/09/23 at 1330, Give with food. 0805 ($Given - Provider: Arnold Stevenson RN)1754 ($Given - Provider: Arnold Stevenson RN) 0843 ($Given - Provider: Akosua Thrasher RN)180 ($Given - Provider: Elizabeth Deleon RN) 0923 ($Given - Provider: Melissa Alberto RN) polyethylene glycol (MIRALAX) Packet 17 g 17 g, Oral, DAILY, First dose on 04/09/23 at 0800, To prevent constipation. Mixed prescribed dose in 8 ounces of water, juice or soda. Administer daily starting at 0900 on POD 1. Hold for loose stools. 1 Packet = 17 grams. Mix each gram with at least 1/2 ounce (15 mL) of water - 8 ounces for 17 g dose, 4 ounces for 8.5 g dose, 2 ounces for 4 g dose. Follow with the same volume of water. Hold for loose stools unless being administered as part of a bowel prep regimen or bowel clean out. 0806 ($Given - Provider: Arnold Stevenson RN) 0859 (Not Given - Provider: Akosua Thrasher RN - Reason: Patient/family refused) 0924 ($Given - Provider: Melissa Alberto RN) senna-docusate (SENOKOT-S/PERICOLACE) 8.6-50 MG per tablet 1 tablet 1 tablet, Oral, 2 TIMES DAILY, First dose on Tue04/08/23 at 1999, To prevent constipation. Hold for loose stools Hold for loose stools. 08 ($Given - Provider: Arnold Stevenson RN)2010 ($Given - Provider: Alonso Montoya, SRAVANI) 0843 ($Given - Provider: Akosua Thrasher, SRAVANI)194 (Not Given - Provider: Elizabeth Deleon, SRAVANI - Reason: Patient/family refused) 0923 ($Given - Provider: Melissa Alberto RN) sodium chloride (PF) 0.9% PF flush 3 mL 3 mL, Intracatheter, EVERY 8 HOURS, First dose on Tue04/08/23 at 1530, to lock peripheral IV dormant line 0952 ($Given - Provider: Arnold Stevenson RN)1541 ($Given - Provider: Arnold Stevenson RN)2333 ($Given - Provider: Alonso Montoya, SARVANI) 0854 ($Given - Provider: Akosua Thrasher RN)1649 ($Given - Provider: Elizabeth Deleon RN) 0119 (Not Given - Provider: Jose Lemus RN - Reason: Patient sleeping)0928 (Not Given - Provider: Melissa Alberto RN - Reason: Loss of IV access) sodium chloride for CT scan flush use (COMPLETED) Intravenous, 100 mL, ONCE, On Tue04/10/23 at 1999, For 1 dose, This entry is for use by Radiology to intermittently used as a flush in patients receiving a CT scan. 1945 ($Given - Provider: Deanna Frankel) venlafaxine (EFFEXOR) tablet 225 mg 225 mg, Oral, 2 TIMES DAILY, First dose on Tue04/07/23 at 1999 0805 ($Given - Provider: Arnold Stevenson RN)2010 ($Given - Provider: Alonso Montoya, SRAVANI) 0844 ($Given - Provider: Akosua Thrasher RN)204 ($Given - Provider: Elizabeth Deleon RN) 0924 ($Given - Provider: Melissa Alberto, SRAVANI) warfarin ANTICOAGULANT (COUMADIN) tablet 5 mg (COMPLETED) 5 mg, Oral, ONCE AT 6PM, On Tue04/10/23 at 1800, For 1 dose 1754 ($Given - Provider: Arnold Stevenson RN) warfarin ANTICOAGULANT (COUMADIN) tablet 6 mg (COMPLETED) 6 mg, Oral, ONCE AT 6PM, On 04/11/23 at 1800, For 1 dose 1806 ($Given - Provider: Elizabeth Deleon RN) Warfarin Dose Required Daily - Pharmacist Managed SEE ADMIN INSTRUCTIONS, Starting on Tue04/08/23 at 1809, Until Tue04/12/23 at 1338, *Note to reorder warfarin daily* Nurse to contact pharmacist if dose not ordered by 6 PM. Pharmacy Warfarin Dosing Service Patient is on Warfarin Therapy - check for daily order Continuous Medication Order 04/10/2023 04/11/2023 04/12/2023 lactated ringers infusion at 75 mL/hr, Intravenous, CONTINUOUS, Change to saline lock when PO well tolerated., Starting on Tue04/08/23 at 1530, Until Tue04/12/23 at 1338 sodium chloride 0.9% infusion at 100 mL/hr, Intravenous, CONTINUOUS, Starting on Tue04/07/23 at 2000, Until Tue04/12/23 at 1338 PRN Medication Order 04/10/2023 04/11/2023 04/12/2023 acetaminophen (TYLENOL) tablet 650 mg 650 mg, Oral, EVERY 4 HOURS PRN, other, For optimal non-opioid multimodal pain management to improve pain control., Starting on Tue04/11/23 at 0000, May give first dose 4 hours after last scheduled dose of acetaminophen (TYLENOL). Maximum acetaminophen dose from all sources = 75 mg/kg/day not to exceed 4 grams/day. 2309 ($Given - Provider: Elizabeth Deleon, SRAVANI) benzocaine-menthol (CHLORASEPTIC) 6-10 MG lozenge 1 lozenge 1 lozenge, Buccal, EVERY 1 HOUR PRN, sore throat, sore throat without fever, Starting on Tue04/08/23 at 1520 bisacodyl (DULCOLAX) suppository 10 mg 10 mg, Rectal, DAILY PRN, constipation, Use if Magnesium hydroxide (MILK of MAGNESIA) not effective after 24 hours. May discontinue if patient having bowel movement., Starting on Tue04/08/23 at 1520, Hold for loose stools. calcium carbonate (TUMS) chewable tablet 500 mg 500 mg, Oral, DAILY PRN, heartburn, Starting on 04/11/23 at 0929 1010 ($Given - Provider: Anay Lange RN) HYDROmorphone (DILAUDID) half-tab 1-2 mg 1-2 mg, Oral, EVERY 3 HOURS PRN, severe pain, Starting on 04/09/23 at 0935 1541 ($Given - Provider: Arnold Stevenson RN)2231 ($Given - Provider: Alonso Montoya, SRAVANI) 0842 ($Given - Provider: Akosua Thrasher RN - Comment: 1mg has been controlling patient's pain) 0006 ($Given - Provider: Jose Lemus RN) HYDROmorphone (DILAUDID) injection 0.2 mg(Linked Group 1) 0.2 mg, Intravenous, EVERY 2 HOURS PRN, moderate pain, Starting on Tue04/08/23 at 1520, IF patient unable to take oral pain medication or pain not controlled with oral analgesics. Hold IV PRN opioid dose for analgesic side effects. Notify provider to assess for uncontrolled pain or analgesic side effects. HYDROmorphone (DILAUDID) injection 0.4 mg(Linked Group 1) 0.4 mg, Intravenous, EVERY 2 HOURS PRN, severe pain, Starting on 04/08/23 at 1520, IF patient unable to take oral pain medication or pain not controlled with oral analgesics. Hold IV PRN opioid dose for analgesic side effects. Notify provider to assess for uncontrolled pain or analgesic side effects. hydrOXYzine (ATARAX) tablet 25 mg 25 mg, Oral, EVERY 6 HOURS PRN, itching, anxiety, with pain, moderate pain, Starting on Esme 04/07/23 at 1932 0805 (Not Given - Provider: Arnold Stevenson RN - Reason: Order parameters not met - Comment: pt denies pain at this time)1540 ($Given - Provider: Arnold Stevenson RN)2329 ($Given - Provider: Alonso Montoya, SRAVANI) 2047 ($Given - Provider: Elizabeth Deleon RN) lidocaine (LMX4) cream Topical, EVERY 1 HOUR PRN, pain, with VAD insertion, Starting on Tue04/07/23 at 1932, Apply at least 30 minutes prior to VAD insertion in divided doses as needed for size of site for insertion. MAX Dose: 2.5 g (?? of 5 g tube) Do NOT give if patient has a history of allergy to any local anesthetic or any mary grace product. Do NOT use both lidocaine intradermal/subcutaneous injection and the lidocaine cream on the same site. lidocaine 1 % 0.1-1 mL 0.1-1 mL, Other, EVERY 1 HOUR PRN, mild pain with VAD insertion, Starting on Tue04/07/23 at 1932, MAX dose 1 mL subcutaneous OR intradermal along the side of the vein in divided doses as needed for VAD insertion. Do NOT give if patient has a history of allergy to any local anesthetic or any mary grace product. Do NOT use both lidocaine intradermal/subcutaneous injection and the lidocaine cream on the same site. magnesium hydroxide (MILK OF MAGNESIA) suspension 30 mL 30 mL, Oral, DAILY PRN, constipation, Use if preventive measures (senna-docusate, docusate, and polyethylene glycol) are not effective., Starting on Tue04/08/23 at 1520, Shake well. Hold for loose stools. melatonin tablet 1 mg 1 mg, Oral, AT BEDTIME PRN, sleep, Starting on Tue04/07/23 at 193, Do not give unless at least 6 hours of uninterrupted sleep is expected. 0 ($Given - Provider: Alonso Montoya RN) 2046 ($Given - Provider: Elizabeth Deleon RN) methocarbamol (ROBAXIN) tablet 500 mg 500 mg, Oral, 4 TIMES DAILY PRN, muscle spasms, Starting on Tue04/07/23 at 1932 0 ($Given - Provider: Alonso Montoya RN) 2236 ($Given - Provider: Elizabeth Deleon RN) naloxone (NARCAN) injection 0.2 mg(Linked Group 2) 0.2 mg, Intravenous, EVERY 2 MIN PRN, opioid reversal, Starting on Tue04/07/23 at 1944, Administer intravenous route when available and notify provider when administered. For unintended sedation or respiratory depression if all of the below criteria are met: ~ respiratory rate LESS than or EQUAL to 8. ~SaO2 less than 92% and or/end-tidal CO2 is greater than 50. ~ the patient is receiving an opioid, has unintended sedations assessed as RASS (-3), and is currently not on mechanical ventilation. RASS scale moderate (-3) is movement or eye opening to voice but no eye contact. Patient Monitoring Once the patient has demonstrated a response to the naloxone, continue to monitor respiratory rate, depth, oxygen saturation and end-tidal CO2 (if available) every 15 minutes x 2, then every 30 minutes x 2, then every 1 hour x 1 after each naloxone dose. Consider transfer to ICU if patient respiratory parameters have not improved after 4 naloxone doses. naloxone (NARCAN) injection 0.2 mg(Linked Group 2) 0.2 mg, Intramuscular, EVERY 2 MIN PRN, opioid reversal, Starting on [facility] 04/07/23 at 1944, Administer intramuscular if an intravenous route is not available and notify provider when administered. For unintended sedation or respiratory depression if all of the below criteria are met: ~ respiratory rate LESS than or EQUAL to 8. ~SaO2 less than 92% and or/end-tidal CO2 is greater than 50. ~ the patient is receiving an opioid, has unintended sedations assessed as RASS (-3), and is currently not on mechanical ventilation. RASS scale moderate (-3) is movement or eye opening to voice but no eye contact. Patient Monitoring Once the patient has demonstrated a response to the naloxone, continue to monitor respiratory rate, depth, oxygen saturation and end-tidal CO2 (if available) every 15 minutes x 2, then every 30 minutes x 2, then every 1 hour x 1 after each naloxone dose. Consider transfer to ICU if patient respiratory parameters have not improved after 4 naloxone doses. naloxone (NARCAN) injection 0.4 mg(Linked Group 2) 0.4 mg, Intravenous, EVERY 2 MIN PRN, opioid reversal, Starting on Esme 04/07/23 at 1944, Administer intravenous route when available and notify provider when administered. For unintended sedation or respiratory depression if all of the below criteria are met: ~ respiratory rate LESS than or EQUAL to 8. ~ SaO2 less than 92% and or/end-tidal CO2 is greater than 50. ~ the patient is receiving an opioid, has unintended sedation assessed as RASS (-4) or (-5) and patient is currently not on mechanical ventilation. RASS scale (-4) is deep sedation with no response to voice but movement or eye opening to physical stimulation. RASS scale (-5) is unarousable. Patient Monitoring Once the patient has demonstrated a response to the naloxone, continue to monitor respiratory rate, depth, oxygen saturation and end-tidal CO2 (if available) every 15 minutes x 2, then every 30 minutes x 2, then every 1 hour x 1 after each naloxone dose. Consider transfer to ICU if patient respiratory parameters have not improved after 4 naloxone doses. naloxone (NARCAN) injection 0.4 mg(Linked Group 2) 0.4 mg, Intramuscular, EVERY 2 MIN PRN, opioid reversal, Starting on Esme 04/07/23 at 1944, Administer intramuscular if an intravenous route is not available and notify provider when administered. For unintended sedation or respiratory depression if all of the below criteria are met: ~ respiratory rate LESS than or EQUAL to 8. ~ SaO2 less than 92% and or/end-tidal CO2 is greater than 50. ~ the patient is receiving an opioid, has unintended sedation assessed as RASS (-4) or (-5) and patient is currently not on mechanical ventilation. RASS scale (-4) is deep sedation with no response to voice but movement or eye opening to physical stimulation. RASS scale (-5) is unarousable. Patient Monitoring Once the patient has demonstrated a response to the naloxone, continue to monitor respiratory rate, depth, oxygen saturation and end-tidal CO2 (if available) every 15 minutes x 2, then every 30 minutes x 2, then every 1 hour x 1 after each naloxone dose. Consider transfer to ICU if patient respiratory parameters have not improved after 4 naloxone doses. ondansetron (ZOFRAN ODT) ODT tab 4 mg(Linked Group 3) 4 mg, Oral, EVERY 6 HOURS PRN, nausea, vomiting, Starting on Tue04/08/23 at 1520, This is Step 1 of nausea and vomiting management. If nausea not resolved in 15 minutes, go to Step 2 prochlorperazine (COMPAZINE). Do not push through foil backing. Peel back foil and gently remove. Place on tongue immediately. Administration with liquid unnecessary With dry hands, peel back foil backing and gently remove tablet. Do not push oral disintegrating tablet through foil backing. Administer immediately on tongue and oral disintegrating tablet dissolves in seconds, then swallow with saliva. Liquid not required. ondansetron (ZOFRAN) injection 4 mg(Linked Group 3) 4 mg, Intravenous, EVERY 6 HOURS PRN, nausea, vomiting, Administer over 2-5 Minutes, Starting on Tue04/08/23 at 1520, This is Step 1 of nausea and vomiting management. If nausea not resolved in 15 minutes, go to Step 2 prochlorperazine (COMPAZINE). Irritant. oxyCODONE (ROXICODONE) tablet 10 mg(Linked Group 4) 10 mg, Oral, EVERY 4 HOURS PRN, severe pain, Starting on Tue04/08/23 at 1520, Hold oral PRN dose for analgesic side effects. Notify provider to assess for uncontrolled pain or analgesic side effects. Hold while on IV SEASONER or with regular IV opioid dosing., , On hold since 04/09/2023 at 0936 until manually unheld 1338 (Unheld by provider - Provider: Orders Generic Provider) oxyCODONE (ROXICODONE) tablet 5 mg(Linked Group 4) 5 mg, Oral, EVERY 4 HOURS PRN, moderate pain, Starting on Tue04/08/23 at 1520, Hold oral PRN dose for analgesic side effects. Notify provider to assess for uncontrolled pain or analgesic side effects. Hold while on IV SEASONER or with regular IV opioid dosing., , On hold since 04/09/2023 at 0936 until manually unheld 1338 (Unheld by provider - Provider: Orders Generic Provider) prochlorperazine (COMPAZINE) injection 10 mg(Linked Group 5) 10 mg, Intravenous, EVERY 6 HOURS PRN, nausea, vomiting, Administer over 1-2 Minutes, Starting on Esme 04/07/23 at 1932, IF patient unable to tolerate oral medication. This is Step 2 of nausea and vomiting management. Give if nausea not resolved 15 minutes after giving ondansetron (ZOFRAN). prochlorperazine (COMPAZINE) suppository 25 mg(Linked Group 5) 25 mg, Rectal, EVERY 12 HOURS PRN, nausea, vomiting, Starting on Esme 04/07/23 at 1932, This is Step 2 of nausea and vomiting management. Give if nausea not resolved 15 minutes after giving ondansetron (ZOFRAN). prochlorperazine (COMPAZINE) tablet 10 mg(Linked Group 5) 10 mg, Oral, EVERY 6 HOURS PRN, vomiting, Starting on Tue04/07/23 at 1932, This is Step 2 of nausea and vomiting management. Give if nausea not resolved 15 minutes after giving ondansetron (ZOFRAN). senna-docusate (SENOKOT-S/PERICOLACE) 8.6-50 MG per tablet 1 tablet(Linked Group 6) 1 tablet, Oral, 2 TIMES DAILY PRN, constipation, Starting on Tue04/07/23 at 1932, If no bowel movement in 24 hours, increase to 2 tablets by mouth. IF more than 1 constipation PRN medication is ordered, administer step-navarro as indicated, moving to the next step ONLY if prior step ineffective. Step 1: senna-docusate (SENOKOT-S; PERICOLACE) OR bisacodyl (DULCOLAX) EC tablet Step 2: magnesium hydroxide (MILK OF MAGNESIA) OR polyethylene glycol (MIRALAX/GLYCOLAX) Step 3: bisacodyl (DULCOLAX) suppository Step 4: sodium phosphate (FLEET ENEMA) Hold for loose stools. senna-docusate (SENOKOT-S/PERICOLACE) 8.6-50 MG per tablet 2 tablet(Linked Group 6) 2 tablet, Oral, 2 TIMES DAILY PRN, constipation, Starting on Tue04/07/23 at 1932, IF more than 1 constipation PRN medication is ordered, administer step-navarro as indicated, moving to the next step ONLY if prior step ineffective. Step 1: senna-docusate (SENOKOT-S; PERICOLACE) OR bisacodyl (DULCOLAX) EC tablet Step 2: magnesium hydroxide (MILK OF MAGNESIA) OR polyethylene glycol (MIRALAX/GLYCOLAX) Step 3: bisacodyl (DULCOLAX) suppository Step 4: sodium phosphate (FLEET ENEMA) Hold for loose stools. sodium chloride (PF) 0.9% PF flush 3 mL 3 mL, Intracatheter, EVERY 1 MIN PRN, line flush, other, to ensure patency or to lock dormant line, Starting on Tue04/08/23 at 1520 Linked Groups Order Group 1: HYDROmorphone (DILAUDID) injection 0.2 mgJump to med 0.2 mg, Intravenous, EVERY 2 HOURS PRN, moderate pain, Starting on Tue04/08/23 at 1520, IF patient unable to take oral pain medication or pain not controlled with oral analgesics. Hold IV PRN opioid dose for analgesic side effects. Notify provider to assess for uncontrolled pain or analgesic side effects. Or HYDROmorphone (DILAUDID) injection 0.4 mgJump to med 0.4 mg, Intravenous, EVERY 2 HOURS PRN, severe pain, Starting on Tue04/08/23 at 1520, IF patient unable to take oral pain medication or pain not controlled with oral analgesics. Hold IV PRN opioid dose for analgesic side effects. Notify provider to assess for uncontrolled pain or analgesic side effects. Group 2: naloxone (NARCAN) injection 0.2 mgJump to med 0.2 mg, Intravenous, EVERY 2 MIN PRN, opioid reversal, Starting on Esme 04/07/23 at 1944, Administer intravenous route when available and notify provider when administered. For unintended sedation or respiratory depression if all of the below criteria are met: ~ respiratory rate LESS than or EQUAL to 8. ~SaO2 less than 92% and or/end-tidal CO2 is greater than 50. ~ the patient is receiving an opioid, has unintended sedations assessed as RASS (-3), and is currently not on mechanical ventilation. RASS scale moderate (-3) is movement or eye opening to voice but no eye contact. Patient Monitoring Once the patient has demonstrated a response to the naloxone, continue to monitor respiratory rate, depth, oxygen saturation and end-tidal CO2 (if available) every 15 minutes x 2, then every 30 minutes x 2, then every 1 hour x 1 after each naloxone dose. Consider transfer to ICU if patient respiratory parameters have not improved after 4 naloxone doses. Or naloxone (NARCAN) injection 0.4 mgJump to med 0.4 mg, Intravenous, EVERY 2 MIN PRN, opioid reversal, Starting on Esme 04/07/23 at 1944, Administer intravenous route when available and notify provider when administered. For unintended sedation or respiratory depression if all of the below criteria are met: ~ respiratory rate LESS than or EQUAL to 8. ~ SaO2 less than 92% and or/end-tidal CO2 is greater than 50. ~ the patient is receiving an opioid, has unintended sedation assessed as RASS (-4) or (-5) and patient is currently not on mechanical ventilation. RASS scale (-4) is deep sedation with no response to voice but movement or eye opening to physical stimulation. RASS scale (-5) is unarousable. Patient Monitoring Once the patient has demonstrated a response to the naloxone, continue to monitor respiratory rate, depth, oxygen saturation and end-tidal CO2 (if available) every 15 minutes x 2, then every 30 minutes x 2, then every 1 hour x 1 after each naloxone dose. Consider transfer to ICU if patient respiratory parameters have not improved after 4 naloxone doses. Or naloxone (NARCAN) injection 0.2 mgJump to med 0.2 mg, Intramuscular, EVERY 2 MIN PRN, opioid reversal, Starting on Esme 04/07/23 at 1944, Administer intramuscular if an intravenous route is not available and notify provider when administered. For unintended sedation or respiratory depression if all of the below criteria are met: ~ respiratory rate LESS than or EQUAL to 8. ~SaO2 less than 92% and or/end-tidal CO2 is greater than 50. ~ the patient is receiving an opioid, has unintended sedations assessed as RASS (-3), and is currently not on mechanical ventilation. RASS scale moderate (-3) is movement or eye opening to voice but no eye contact. Patient Monitoring Once the patient has demonstrated a response to the naloxone, continue to monitor respiratory rate, depth, oxygen saturation and end-tidal CO2 (if available) every 15 minutes x 2, then every 30 minutes x 2, then every 1 hour x 1 after each naloxone dose. Consider transfer to ICU if patient respiratory parameters have not improved after 4 naloxone doses. Or naloxone (NARCAN) injection 0.4 mgJump to med 0.4 mg, Intramuscular, EVERY 2 MIN PRN, opioid reversal, Starting on Esme 04/07/23 at 1944, Administer intramuscular if an intravenous route is not available and notify provider when administered. For unintended sedation or respiratory depression if all of the below criteria are met: ~ respiratory rate LESS than or EQUAL to 8. ~ SaO2 less than 92% and or/end-tidal CO2 is greater than 50. ~ the patient is receiving an opioid, has unintended sedation assessed as RASS (-4) or (-5) and patient is currently not on mechanical ventilation. RASS scale (-4) is deep sedation with no response to voice but movement or eye opening to physical stimulation. RASS scale (-5) is unarousable. Patient Monitoring Once the patient has demonstrated a response to the naloxone, continue to monitor respiratory rate, depth, oxygen saturation and end-tidal CO2 (if available) every 15 minutes x 2, then every 30 minutes x 2, then every 1 hour x 1 after each naloxone dose. Consider transfer to ICU if patient respiratory parameters have not improved after 4 naloxone doses. Group 3: ondansetron (ZOFRAN ODT) ODT tab 4 mgJump to med 4 mg, Oral, EVERY 6 HOURS PRN, nausea, vomiting, Starting on Tue04/08/23 at 1520, This is Step 1 of nausea and vomiting management. If nausea not resolved in 15 minutes, go to Step 2 prochlorperazine (COMPAZINE). Do not push through foil backing. Peel back foil and gently remove. Place on tongue immediately. Administration with liquid unnecessary With dry hands, peel back foil backing and gently remove tablet. Do not push oral disintegrating tablet through foil backing. Administer immediately on tongue and oral disintegrating tablet dissolves in seconds, then swallow with saliva. Liquid not required. Or ondansetron (ZOFRAN) injection 4 mgJump to med 4 mg, Intravenous, EVERY 6 HOURS PRN, nausea, vomiting, Administer over 2-5 Minutes, Starting on Tue04/08/23 at 1520, This is Step 1 of nausea and vomiting management. If nausea not resolved in 15 minutes, go to Step 2 prochlorperazine (COMPAZINE). Irritant. Group 4: oxyCODONE (ROXICODONE) tablet 5 mgJump to med 5 mg, Oral, EVERY 4 HOURS PRN, moderate pain, Starting on Tue04/08/23 at 1520, Hold oral PRN dose for analgesic side effects. Notify provider to assess for uncontrolled pain or analgesic side effects. Hold while on IV SEASONER or with regular IV opioid dosing., , On hold since 04/09/2023 at 0936 until manually unheld, On hold since 04/09/2023 at 0936 until manually unheld Or oxyCODONE (ROXICODONE) tablet 10 mgJump to med 10 mg, Oral, EVERY 4 HOURS PRN, severe pain, Starting on Tue04/08/23 at 1520, Hold oral PRN dose for analgesic side effects. Notify provider to assess for uncontrolled pain or analgesic side effects. Hold while on IV SEASONER or with regular IV opioid dosing., , On hold since 04/09/2023 at 0936 until manually unheld, On hold since 04/09/2023 at 0936 until manually unheld Group 5: prochlorperazine (COMPAZINE) injection 10 mgJump to med 10 mg, Intravenous, EVERY 6 HOURS PRN, nausea, vomiting, Administer over 1-2 Minutes, Starting on Esme 04/07/23 at 1932, IF patient unable to tolerate oral medication. This is Step 2 of nausea and vomiting management. Give if nausea not resolved 15 minutes after giving ondansetron (ZOFRAN). Or prochlorperazine (COMPAZINE) tablet 10 mgJump to med 10 mg, Oral, EVERY 6 HOURS PRN, vomiting, Starting on Esme 04/07/23 at 1932, This is Step 2 of nausea and vomiting management. Give if nausea not resolved 15 minutes after giving ondansetron (ZOFRAN). Or prochlorperazine (COMPAZINE) suppository 25 mgJump to med 25 mg, Rectal, EVERY 12 HOURS PRN, nausea, vomiting, Starting on Esme 04/07/23 at 1932, This is Step 2 of nausea and vomiting management. Give if nausea not resolved 15 minutes after giving ondansetron (ZOFRAN). Group 6: senna-docusate (SENOKOT-S/PERICOLACE) 8.6-50 MG per tablet 1 tabletJump to med 1 tablet, Oral, 2 TIMES DAILY PRN, constipation, Starting on Esme 04/07/23 at 1932, If no bowel movement in 24 hours, increase to 2 tablets by mouth. IF more than 1 constipation PRN medication is ordered, administer step-navarro as indicated, moving to the next step ONLY if prior step ineffective. Step 1: senna-docusate (SENOKOT-S; PERICOLACE) OR bisacodyl (DULCOLAX) EC tablet Step 2: magnesium hydroxide (MILK OF MAGNESIA) OR polyethylene glycol (MIRALAX/GLYCOLAX) Step 3: bisacodyl (DULCOLAX) suppository Step 4: sodium phosphate (FLEET ENEMA) Hold for loose stools. Or senna-docusate (SENOKOT-S/PERICOLACE) 8.6-50 MG per tablet 2 tabletJump to med 2 tablet, Oral, 2 TIMES DAILY PRN, constipation, Starting on Esme 04/07/23 at 1932, IF more than 1 constipation PRN medication is ordered, administer step-navarro as indicated, moving to the next step ONLY if prior step ineffective. Step 1: senna-docusate (SENOKOT-S; PERICOLACE) OR bisacodyl (DULCOLAX) EC tablet Step 2: magnesium hydroxide (MILK OF MAGNESIA) OR polyethylene glycol (MIRALAX/GLYCOLAX) Step 3: bisacodyl (DULCOLAX) suppository Step 4: sodium phosphate (FLEET ENEMA) Hold for loose stools. 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
--- OUTSIDE RECORDS SUMMARY | 2023-09-21 15:06 | XMS_ITS | Encounter Summary ---
Author Name Unknown Organization [facility] Address [address] [place] [id number] Care Team Providers Care Painter And Body Work Name Role Phone Case Gao Primary Care Provider [phone] Encounter Details Date Type Department Care Team (Latest Contact Info) Description 04/07/2023 Travel Social History Tobacco Use Types Packs/Day [...] PM CDT documented as of this encounter Plan of Treatment Not on file documented as of this encounter Goals Goal Patient Goal Type Associated Problems Recent Progress Patient-Stated? 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
--- OUTSIDE RECORDS SUMMARY | 2023-09-21 15:06 | XMS_ITS | Encounter Summary ---
Author Name Unknown Organization [facility] Address [address] [place] [address] Care Team Providers Care Direct Support Specialist Name Role Phone Case Gao Primary Care Provider [phone] Reason for Visit * Reason Comments Hip Pain * Auth/Cert (Routine) Specialty Diagnoses / Procedures Referred By Konstantin t Referred To Contact Surgery Diagnoses Periprosthetic hip fracture, initial encounter Periprosthetic hip fracture, initial encounter Rh Preop/Postop [address] [place] [address] Referral ID Status Reason Start Date Expiration Date Visits Re quested Visits Authorized [id number] 1 1 Encounter Details Date Type Department Care Team (Late st Contact Info) Description 04/08/2023 9:50 AM CDT - 04/08/2023 2:15 PM CDT Surgery [facility] PeriOp Services [address] [place] [address] Fazal Ramirez MD [address] [address] LEFT TOTAL HIP ARTHROPLASTY REVISION AND OPEN REDUCTION INTERNAL FIXATION PROXIMAL FEMUR Surgery Details Date/Time Status Location OR Service Patient Class Case Class Case Type Trauma Case? 04/08/23 9:50 AM Posted RH OR OR 06 Orthopedics Inpatient NEST 5 - Semi-Urge nt (within 48hrs) Panel 1 Procedure LRB Anes Op Region Wound Class Comments LEFT TOTAL HIP ARTHROPLASTY REVISION AND OPEN REDUCTION INTERNAL FIXATION PROXIMAL FEMUR Left General Hip I-Clean Surgeon Surgeon Role Service Panel Fazal Ramirez MD Primary Orthopedics 1 Vira Fernandes PA-C Assisting Merchant Mill Utility Worker Shawna barrientos 1 Rohini Beal PA-C Assisting Merchant Mill Utility Worker Authorgina comer 1 documented in this encounter Social History Tobacco [...] Sign Reading Time Taken Comments Blood Pressure 133/58 04/08/2023 8:30 AM CDT Pulse 97 04/08/2023 8:30 AM CDT Temperature 36.2 ??C (97.1 ??F) 04/08/2023 8:30 AM CD T Respiratory Rate 20 04/08/2023 8:30 AM CDT Oxygen Saturation 98% 04/08/2023 8:13 AM CDT Inhaled Oxygen Concentration - - Weight 83.5 kg (184 lb 1.4 oz) 04/07/2023 7:17 P M CDT Height 172.7 cm (5' 8) 04/07/2023 7:17 PM CDT Body Mass Index 27.99 04/07/2023 7:17 PM CDT documented in this encounter Discharge Summaries * Jonathan Linn MD - 04/12/2023 11:32 AM CDT Physician Discharge Summary [facility] Hospitalist Discharge Summary-[facility] Name: Mora Galeas Date of : 1960 [...] Location: OR CARPAL TUNNEL RELEASE RT/LT Bilateral LABORATORY COORDINATOR SURGERY c section x 3 OPEN REDUCTION [...] DOSE WARFARIN PAIN MANAGEMENT ADULT IP CONSULT [facility] IP CONSULT PHYSICAL THERAPY [...] your medicines These medications were sent to [place], [place] - [address] [facility] [address] [facility] [address] ferrous sulfate 325 (65 Fe) MG EC [...] return or gets worse. Follow up with [facility] ascp consultant as instructed with ortho Other instructions: [...] partially visualized. JEROD YEAGER MD SYSTEM ID: [id number] XR Surgery RAAD L/T 5 Min Fluoro w Stills Narrative This exam was marked as non-reportable because it will not be read by a radiologist or a [facility] non-radiologist provider. XR Pelvis w Hip Port [...] alignment. Osteopenia. POLO GARCIA MD SYSTEM ID: [id number] CT Pelvis Soft Tissue w Contrast Narrative EXAM: CT PELVIS SOFT TISSUE W CONTRAST LOCATION: [facility] DATE: 04/10/2023 INDICATION: Hgb 9 >6.8 after [...] Ramirez's clinic in 2 week([address]. Ramirez's critical care registered nurse is Dede Sadler. Please contact her at [phone] to schedule an appointment[address] Dr. Ramirez sees patient's at 2 clinic locations: [facility] [address] [place] [address] [facility] [place] [address] , [address], [place] [address] Please call the on-call phone number [phone] during evenings, nights and weekends for any [...] confirm recommendations regarding resuming her RA meds. ([phone]) 2. Disposition Anticipate d/c to home. Ortho [...] CM informed patient she was accepted at [facility], she stated she no longer wanted to go to TCU and would prefer to go home with outpatient PT. She would like to go to [facility] for PT on [facility] in [place]. She stated her can transport her and she is eager to discharge today. CM called and informed [facility] patient declined TCU placement. Hospitalist, charge nurse, and bedside nurse notified. Nesha Ross RN, BSN Inpatient Care Coordination [facility] [phone] * Trini Torres PA-C - 04/11/2023 11:12 [...] changed at bedside today by Dr Ramirez (aquacel) Minimal erythema of the surrounding skin. Bilateral [...] from the original note were not included. [facility] Hospitalist Progress Note Jonathan Linn M.D., [...] partially visualized. JEROD YEAGER MD SYSTEM ID: [id number] XR Surgery RAAD L/T 5 Min Fluoro w Stills Narrative This exam was marked as non-reportable because it will not be read by a radiologist or a [facility] non-radiologist provider. XR Pelvis w Hip Port [...] alignment. Osteopenia. POLO GARCIA MD SYSTEM ID: [id number] COVID Status: COVID-19 PCR Results 04/10/2021 09:25 [...] from the original note were not included. [facility] Hospitalist Progress Note Jonathan Linn M.D., [...] hours. I personally reviewed Recent Labs Lab 04/10/23 0704/09/23 0739 04/08/23 0357 WBC 9.5 16.6* 6.4 [...] partially visualized. JEROD YEAGER MD SYSTEM ID: [id number] XR Surgery RAAD L/T 5 Min Fluoro w Stills Narrative This exam was marked as non-reportable because it will not be read by a radiologist or a [facility] non-radiologist provider. XR Pelvis w Hip Port [...] alignment. Osteopenia. 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 She is close with her , Dell, who is a news copy editor. Meaning, Beliefs, and Spirituality - Pt reports that her vicki is very important for her. She identifies as [facility]. She experiences God's love and justina in her life, and this is a major support for her. Mora prioritizes reading scripture and feels moved by sermons that get to the root of the Gospel message. She welcomed prayer with me. Plan of Care - I and other chaplains remain available for further support. I informed pt on how to request a artificial flowers starcher should further support be needed. Karoline Martinez Software Solutions Architect Superintendent Drilling And Production [facility] routine referrals *[id number] [facility] available 28/03 for emergent requests/referrals, either by paging the on-call artificial flowers starcher or by entering an HOWIE/STAT consult in [facility] (this will also page the on-call artificial flowers starcher). * Vira Fernandes PA-C - 04/10/2023 10:07 [...] from the original note were not included. [facility] Hospitalist Progress Note Jonathan Linn M.D., [...] partially visualized. JEROD YEAGER MD SYSTEM ID: [id number] XR Surgery RAAD L/T 5 Min Fluoro w Stills Narrative This exam was marked as non-reportable because it will not be read by a radiologist or a [facility] non-radiologist provider. XR Pelvis w Hip Port [...] alignment. Osteopenia. POLO GARCIA MD SYSTEM ID: [id number] COVID Status: COVID-19 PCR Results 04/10/2021 09:25 [...] Date of Surgery 04/07/23 Referring Physician Rohini Beal PA-C Patient/Family Therapy Goal Statement (OT) d/c to [...] flowsheet Bed Mobility Bed Mobility supine-sit;sit-supine Supine-Sit Greenlee (Bed Mobility) minimum assist (75% patient effort) Sit-Supine Greenlee (Bed Mobility) minimum assist (75% patient effort) [...] ongoing OT. OT Total Evaluation Time OT Eval, Low Complexity Minutes (83470) 10 OT Goals Therapy Frequency (OT) 5 [...] Management Self-Care/Home Mgmt/ADL, Compensatory, Meal Prep Minutes (30580) 22 Treatment Detail/Skilled Intervention Pt is educated [...] Brink, PT - 04/09/2023 10:09 AM CDT 04/09/23916 Appointment Info Signing Clinician's Name / Credentials [...] Date of Surgery 04/07/23 Referring Physician Rohini Beal PA-C Patient/Family Therapy Goals Statement (PT) Patient would like to go to TCU before returning home Pertinent History of Current Problem (include personal factors and/or comorbidities that impact thePOC) Per chart patient is a 62 year [...] Evaluation Time PT Eval, Low Complexity Minutes (34516) 10 Physical Therapy Goals PT Frequency Daily PT Predicted Duration/Target Date for Goal Attainment 04/12/23 PT Goals Transfers;Bed Mobility;Gait PT: Bed Mobility Supine to/from sit;Rolling;Modified independent PT: Transfers Supervision/stand-by assist;Sit to/from stand;Modified independent PT: Gait Supervision/stand-by assist;Greater than 200 feet;Rolling walker;Within precautions Therapeutic Procedure/Exercise Ther. Procedure: strength, endurance, ROM, flexibillity Minutes (02950) 10 Treatment Detail/Skilled Intervention Pt engaged in 10 reps LLE AP, QS, heel slide, SAQ for improved bld flow and ROM prior to OOBmobility tolerated well Symptoms Noted During/After Treatment fatigue;increased pain Therapeutic Activity Therapeutic Activities: dynamic activities to improve functional performance Minutes (53405) 10 Treatment Detail/Skilled Intervention Pt supine upon [...] BLE elevated Gait Training Gait Training Minutes (23047) 15 Symptoms Noted During/After Treatment (Gait Training) [...] from the original note were not included. [facility] Hospitalist Progress Note Jonathan Linn M.D., [...] partially visualized. JEROD YEAGER MD SYSTEM ID: [id number] XR Surgery RAAD L/T 5 Min Fluoro w Stills Narrative This exam was marked as non-reportable because it will not be read by a radiologist or a [facility] non-radiologist provider. XR Pelvis w Hip Port [...] alignment. Osteopenia. POLO GARCIA MD SYSTEM ID: [id number] COVID Status: COVID-19 PCR Results 04/10/2021 09:25 [...] Locke MD - 04/07/2023 3:10 PM CDT [facility] History and Physical - Hospitalist [...] Disposition Plan Deyanira Locke MD Hospitalist Service [facility] Securely message with [employer] (more info) Text page via [facility] Paging/Directory Chief Complaint Left hip pain in [...] SH OR CARPAL TUNNEL RELEASE RT/LT Bilateral LABORATORY COORDINATOR SURGERY c section x 3 OPEN REDUCTION [...] night she is lives with her in [facility] Family History No significant family history, [...] encounter Consult Notes * Caron Alba APRN RECREATION ESTABLISHMENT MANAGER - 04/11/2023 5:30 PM CDTAssociated Order(s): PAIN MANAGEMENT ADULT IP CONSULT Images from the original note were not included. [facility] Acute Pain Management Consultation Date of Admission: [...] Obesity, Smoker, Age>60, >2 opioid therapies, concomitant RECREATION ESTABLISHMENT MANAGER depressants, opioid naive status, or post surgical [...] left total hip replacement (03/25/[address] Cj Chen). Our team was asked to see [...] she had rarely taken opiates. Per [place] ADULT LITERACY INSTRUCTOR review Oxycodone and Tramadol. The patient is [...] care everywhere. Last UDS - none [place] ADULT LITERACY INSTRUCTOR-pulled from system on 04/11/23. Last refill on [...] (Left, 01/25/2021); carpal tunnel release rt/lt (Bilateral); LABORATORY COORDINATOR surgery; Total Knee Arthroplasty (Left, 04/2021); tubal [...] partially visualized. JEROD YEAGER MD SYSTEM ID: [id number] XR Pelvis w Hip Port Left 1 View Impression IMPRESSION: Status post left total hip arthroplasty revision with longstem femoral component. Periprosthetic fracture of the proximal femur with improved alignment. Expected postsurgical soft tissue edema, subcutaneous emphysema, and skin pepe. Normal joint alignment. Osteopenia. POLO GARCIA MD SYSTEM ID: [id number] CT Pelvis Soft Tissue w Contrast Impression [...] you for this consultation. Caron Alba APRN, MATT, ACHPN, FAACVPR Acute Pain Team (SD/RH) 8 AM to 4:30 PM after 4:30 page roundhouse supervisor No weekend coverage [facility] Paging/Directory Pain Securely message with the [employer] About [employer] Console (learn more here) * ROXANE PARK - 04/09/2023 4:03 PM CDTAssociated Order(s): CARE MANAGEMENT / SOCIAL WORK IP CONSULT Care Management Initial Consult General Information Assessment completed with: Patient, VM-chart review, Type of CM/SW Visit: Offer D/C Planning Primary Care Provider verified and updated as needed: Yes Readmission within the last 30 days: Reason for Consult: discharge planning Advance Care Planning: Communication Assessment Patient's communication style: spoken language (Indian or Bilingual) Hearing Difficulty or Deaf: no [...] see. Pt would like referrals sent to [facility], referrals sent. Pt stated her will provide transportation. Pt reports being independent with IADL/ADLs and uses a rolling walker. BEN Howard, [facility] Inpatient Care Coordination [facility] [phone] * Trini Torres PA-C - 04/07/2023 2:50 PM CDT [facility] Orthopedic Consultation Mora Galeas Age: [age] year old Date of : [...] She had increased pain and xrays at [facility] and was told xrays were negative. Unfortunately, patient was found to have a left hip periprosthetic fracture at her follow-up appointment yesterday at [facility] and was referred to the hospital for [...] SH OR CARPAL TUNNEL RELEASE RT/LT Bilateral LABORATORY COORDINATOR SURGERY c section x 3 OPEN REDUCTION [...] Status --------- ------ CBC with platelets and d...[[id number]] Please view results for these tests on the individual orders. ABO/Rh type and screen Status: None () Narrative The following orders were created for panel order ABO/Rh type and screen. Procedure Abnormality Status --------- ------ Adult Type and Screen[[id number]] Please view results for these tests on [...] addition, I would add the following: Mora aGleas is a 62 year old female with [...] pop in her hip. She presented to [facility] where x-rays were read as negative. She has since followed up at [facility] where new x-rays were obtained and revealed [...] Smith RN - 04/07/2023 3:20 PM CDT [facility] ED Nurse Handoff Report ED Chief complaint: Hip Pain . ED Diagnosis: Final diagnoses: Periprosthetic hip fracture, initial encounter Allergies: Allergies Allergen Reactions Aspirin Anaphylaxis Code Status: Full Code Activity level - Baseline/Home: independent. Activity Level - Current: in bed. Lift room needed: No. Bariatric: No Vehicle Service Attendant Needed: No Isolation: No. Infection: Not Applicable. [...] 5 mg (5 mg Oral $Given 04/07/23 8807) Drips infusing: No For the majority of [...] Patient Only Review of External Notes: Reviewed [facility] Ortho note Dr. Cj Issa home from [...] partially visualized. JEROD YEAGER MD SYSTEM ID: [id number] Report per radiology Laboratory: Labs Ordered and [...] NEG Antibody Screen Negative SPECIMEN EXPIRATION DATE [id number] ABO/RH TYPE AND SCREEN Emergency Department Course [...] care of Dr. Locke. Impression & Plan CMS Diagnoses: None Medical Decision Making: This is [...] REDUCTION INTERNAL FIXATION PROXIMAL FEMUR Scribe Disclosure: IManueled, am serving as a scribe at 2:32 PM on 04/07/2023 to document services personally performed by Rusty Schultz PA-C based on my observations and the provider's statements to me. 04/07/2023 uRsty Schultz PA-C Etten, Clark Ellsworth, PA-C 04/07/23 1730 documented in this encounter Miscellaneous Notes * Pharmacy-Anticoagulation Service - Ember Zendejas RPH - 04/12/2023 11:32 AM CDT Images from the original note were not included. 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 INR Goal= 2-3 Expected length of therapy undetermined. Warfarin BILL SORTER Regimen: 2.5 mg daily Anticoagulation Dose History [...] goal(s). See goals on Care Plan in [facility] electronic health record for goal details. Goals partially met. Barriers to achieving goals: discharge from facility. Therapy recommendation(s): No further therapy is recommended. Patient has met needed goals to return home safely with spouse support for IADls and ADls as needed. * Plan of Care - Maurice Malloy PT - 04/12/2023 8:48 AM CDT Physical Therapy Discharge Summary Reason for therapy discharge: All goals and outcomes met, no further needs identified. Progress towards therapy goal(s). See goals on Care Plan in [facility] electronic health record for goal details. [...] analgesics: Yes Does patient have an identified student success coach: Yes Has goal D/C date and [...] iv. Dressings-changed via MD ortho. Aquacel applied. Wade intact. CMS-denies numbness and tingling. +pp. Strong [...] analgesics: Yes Does patient have an identified student success coach: Yes Has goal D/C date and [...] analgesics: Yes Does patient have an identified student success coach: Yes Has goal D/C date and [...] Reason: IVC Does patient have an identified student success coach: Yes Has goal D/C date and [...] Stevenson RN - 04/09/2023 4:00 PM CDT [employer] Web Paged Dr. Linn: Tachy HRs 130-140s, [...] 10 mg. Does patient have an identified student success coach: Yes, was at bedside this afternoon. Has goal D/C date and time been discussed with patient: Yes, TCU when stable. Pt A&O x4, afebrile. BP elevated. 98% RA. Capno in place. CMS intact, denies numbness and tingling, abductor pillow in place. Denies nausea and vomiting. Will continue to monitor. * Pharmacy-Anticoagulation Service - Angel Barker RP - 04/08/2023 7:12 PM CDT Clinical Pharmacy - Warfarin Dosing Consult Pharmacy has been consulted to manage this patient???s warfarin therapy. Indication: DVT/PE Prophylaxis Therapy Goal: INR 2-3 Warfarin Prior to Admission: Yes Warfarin BILL SORTER Regimen: 2.5 mg daily Significant drug interactions: [...] CDT ORTHOPEDIC SURGERY OPERATIVE NOTE Mora Galeas [id number] 1960 April 08, 2023 PREOPERATIVE DIAGNOSIS: Left [...] the fracture around the pre-existing implant. SURGEON: Faazl Ramirez MD ENVIRONMENTAL PROTECTION ECONOMIST: Rohini Beal PA-C; A skilled family law legal assistant was necessary for this procedure for assistance with patient positioning, prepping, draping, surgical visualization, wound closure, and application of the dressing. Vira Fernandes PA-C SPECIMENS: None COMPLICATIONS: None ESTIMATED BLOOD LOSS: 350cc IMPLANTS: Implant Name Type Inv. Item Serial No. Traffic Observer Lot No. LRB No. Used Action IMP HEAD FEMORAL STRK BIOLOX DELTA CERAMIC 36MM +2.5MM - [id number] Total Joint Component/Insert IMP HEAD FEMORAL STRK BIOLOX DELTA CERAMIC 36MM +2.5MM URX [id number] Left 1 Explanted IMP STEM FEMORAL HIP STRK ACCOLADE II 132DEG SZ 5 1165-3546 - [id number] Total Joint Component/Insert IMP STEM FEMORAL HIP STRK ACCOLADE II 132DEG SZ 5 6859- 3870 URX [id number] Left 1 Explanted FiberTape Cerclage, 2mm, 48 ARTHREX [id number] Left 3 Implanted IMP STEM FEM RSTRTN MOD BOWED CONICAL [id number] - [id number] Total Joint Component/InsertIMP STEM FEM RSTRTN MOD BOWED CONICAL [id number] URX [id number] Left 1 Implanted IMP INSERT ACET STRK MDM COCR HIP 0DEG 42MM SZ E [id number] - [id number] Total Joint Component/Insert IMP INSERT ACET STRK MDM COCR HIP 0DEG 42MM SZ E [id number] URX [id number] Left 1 Implanted IMP STEM FEM MOD REV HIP PROX BODY/BOLT 19MM +10 119 - [id number] Total Joint Component/Insert IMP STEM FEM MOD REV HIP PROX BODY/BOLT 19MM +10 119 URX [id number] Left 1 Implanted INSERT ACTB 42MM 28MM E HIP X3 ADM STRL [facility] 7236-2-848 - [id number] Metallic Hardware/Norris INSERT ACTB 42MM 28MM E HIP X3 ADM STRL [facility] 7236-2-848 URX [id number] Left 1 Implanted IMP HEAD FEMORAL STRK BIOLOX DELTA CERAMIC 28MM +4MM - [id number] Total Joint Component/Insert IMP HEAD FEMORAL STRK BIOLOX DELTA CERAMIC 28MM +4MM URX [id number] Left 1 Implanted FiberTape Cerclage, 2mm, 48 [id number] Left 1 Implanted FiberTape Cerclage, 2mm, 48 ARTHREX [id number] Left 1 Implanted PRIOR IMPLANTS: She has a Murdock 52 mm Trident TriTanium cluster hole acetabular [...] pop in her hip. She presented to [facility] where x-rays were read as negative. She has since followed up at [facility] where new x-rays were obtained and revealed [...] be loose and easilyremoved with a vice host coordinator Revision hip arthroplasty We then proceeded with placement of a new stem. Prior to placement of the new stem, a Arthrex fibertape cerclage was placed just distal to the fracture along the femoral shaft to prevent any propagation of a femoral shaft fracture. The ObjectWay methodist modular implant system was utilized. The femoral shaft was reamed sequentially up to a size 19mm. Intraoperative radiographs were obtained to ensure good fit. A [id number] was selected and implanted into the femoral [...] Ramirez's clinic in [address] Ramirez's critical care registered nurse is Dede Sadler. Please contact her at [phone] to schedule an appointment[address] Dr. Ramirez sees patient's at 2 clinic locations: [facility] [address] [place], [place] [address] [place] [address] Orthoped[facility] - [place] [address] , [address], [place] [address] Please call the on-call phone number [phone] during evenings, nights and weekends for any urgent needs. Prescription refills must be done during business hours by calling [phone] Fazal Ramirez MD [facility] * Plan of Care - Arnold [...] through pain Does patient have an identified student success coach: Yes Has goal D/C date and time been discussed with patient: to be determined Pt is alert and oriented, assist of 2 with repositioning and turning, bedrest purewick put in instead of bedpan was too painfully. NPO since midnight, going for surgery at 1005. Oxycodone, robaxin , atarax and IV diladiud for pain * Pharmacy-Admission Medication History - Trini Josue RPH - 04/07/2023 6:44 PM CDT Pharmacist Admission Medication History Admission medication history is complete. The information provided in this note is only as accurateas the sources available at the time of the update. Medication reconciliation/reorder completed by provider prior to medication history? Yes Information Source(s): Patient, Hospital records, and [facility] Pertinent Information: Pt recently started warfarin following surgery a couple of weeks ago - Rx states to take two 2.5 mg tabs daily (5 mg total), however pt has only been taking one 2.5 mg tab daily. Pt states has green colored tabs at home. Changes made to BILL SORTER medication list: Added: None Deleted: None Changed: Warfarin 5 mg daily -> 2.5 mg daily Senna-doc -> PRN Allergies reviewed with patient and updates made in EHR: yes Medication History Completed By: Trini Josue RPH 04/07/2023 6:44 PM Prior to Admission medications Medication Sig Last Dose Taking? Auth Provider Group Home End Date acetaminophen (TYLENOL) 325 MG tablet [...] tablet Take 1 tablet by mouth daily 04/06/2023t PM Yes Reported, Patient Yes methotrexate 2.5 [...] Care Plan Total Joint Replacement Hip Pathway Octavia Hammond documented as of this encounter Procedures Procedure [...] PM CDT TYPE AND SCREEN, ADULT Routine 3 8:04 PM CDT ABO/RH TYPE AND SCREEN Routine 3 8:[address] PELVIS SOFT TISSUE [...] Locke MD LAB - BLOOD ORDERABL ES [facility] [address] (1st floor, no room number) [place] [id number], [facility] [phone] * (ABNORMAL) Hemoglobin (04/12/2023 6:41 AM CDT) Hemoglobin 7.8(L) 11.7 - 15.7 g/dL 04/12/2023 6:49 AM CDT RH LABORATORY Blood STRUCTURE OF LEFT HAND / Unknown Venipuncture / Unknown 04/12/2023 6:41 AM CDT 04/12/2023 6:45 AM CDT Jonathan Linn MD LAB - BLOOD ORDERABL ES [facility] [address] Lab (1st floor, no room number) [place] [address], [facility] [phone] * (ABNORMAL) INR (04/12/2023 6:41 AM CDT) INR 1.28(H) 0.85 - 1.15 04/12/2023 6:58 AM CDT RH LABORATORY Blood STRUCTURE OF LEFT HAND / Unknown Venipuncture / Unknown 04/12/2023 6:41 AM CDT 04/12/2023 6:45 AM CDT Rohini PEDERSON-Gavi LAB - BLOOD ORDERA BLES Performing Organization Address [facility] [place]/[facility] Co de Phone Number [facility] Lab [address] Lab (1st floor, no room number) [place] [id number], [facility] [phone] * (ABNORMAL) Hemoglobin (04/11/2023 5:58 PM CDT) Hemoglobin 7.6(L) 11.7 - 15.7 g/dL 04/11/2023 6:06 PM CDT RH LABORATORY Blood STRUCTURE OF RIGHT UPPER LIMB / Unknown Venipuncture / Unknown 04/11/2023 5:58 PM CDT 04/11/2023 6:01 PM CDT Jonathan Linn MD LAB - BLOOD ORDERABL ES Performing Organization Address [facility] [place]/[facility] de Phone Number [facility] Lab [address] Lab (1st floor, no room number) [place] [id number], [facility] [phone] * (ABNORMAL) INR (04/11/2023 6:51 AM CDT) INR 1.29(H) 0.85 - 1.15 04/11/2023 7:20 AM CDT RH LABORATORY Blood STRUCTURE OF RIGHT UPPER LIMB / Unknown Venipuncture / Unknown 04/11/2023 6:51 AM CDT 04/11/2023 7:03 AM CDT Rohini PEDERSON-Gavi LAB - BLOOD ORDERA BLES LABORATORY [facility] [address] Lab (1st floor, no room number) [place] [address], [facility] [phone] * Platelet count (04/11/2023 6:51 AM CDT) Platelet Count 383 150 - 450 10e3/uL 04/11/2023 7:06 AM CDT RH LABORATORY Blood STRUCTURE OF RIGHT UPPER LIMB / Unknown Venipuncture / Unknown 04/11/2023 6:51 AM CDT 04/11/2023 7:03 AM CDT Rohini Beal PA-C LAB - BLOOD ORDERA BLES Performing Organization Address City/[facility]/ZIP Co de Phone Number LABORATORY [facility] [address] Lab (1st floor, no room number) [place] [address], [facility] [phone] * (ABNORMAL) Hemoglobin (04/11/2023 6:51 AM CDT) Hemoglobin 7.7(L) 11.7 - 15.7 g/dL 04/11/2023 7:06 AM CDT RH LABORATORY Blood STRUCTURE OF RIGHT UPPER LIMB / Unknown Venipuncture / Unknown 04/11/2023 6:51 AM CDT 04/11/2023 7:03 AM CDT Jonathan Linn MD LAB - BLOOD ORDERABL ES LABORATORY [facility] [address] Lab (1st floor, no room number) [place] [address], [facility] [phone] * Transfuse red blood cells (unit) (04/10/2023 11:32 PM CDT) Isabel Hawthorne MD BLOOD TRANSFUSION OR DERABLES * Transfuse red blood cells (unit), 1 Units (04/10/2023 11:32 PM CDT) Isabel Hawthorne MD BLOOD TRANSFUSION OR DERABLES * Prepare red blood cells (unit) (04/10/2023 8:23 PM CDT) Blood Component Type Red Blood Cells RH BLOOD BANK Product Code [id number] RH BLOO D BANK Unit Status Transfused RH BLOO D BANK Unit Number [id number] RH B LOOD BANK CROSSMATCH Compatible RH BLOOD BANK CODING SYSTEM [id number] RH BLO OD BANK ISSUE DATE AND TIME [id number] RH BLOOD BANK UNIT ABO/RH A- RH BLOOD BANK UNIT TYPE ISBT 0600 RH BL OOD BANK 04/10/2023 8:23 PM CDT Isabel Hawthorne MD BLOOD BANK PRODUCT O RDERABLES Performing Organization Address [facility] [place]/[facility] Co de Phone Number BLOOD BANK [address] [place] [address] * Adult Type and Screen (04/10/2023 8:04 PM CDT) ABO/RH(D) A NEG 04/10/2023 7:13 PM CDT RH BLOOD BANK Antibody Screen Negative Negative 04/10/2023 7:13 PM CDT RH BLOOD BANK SPECIMEN EXPIRATION DATE [id number] 04/10/2023 7:13 PM CDT RH BLOOD BANK Blood STRUCTURE OF RIGHT UPPER LIMB / Unknown Venipuncture / Unknown 04/10/2023 8:04 PM CDT 04/10/2023 8:06 PM CDT Drake Aburto MD LAB - BLOOD BANK RENITA T ORDER Performing Organization Address [facility] [place]/[facility] Co de Phone Number BLOOD BANK [address] [place] [address], [facility] * CT Pelvis Soft Tissue w Contrast [...] CT PELVIS SOFT TISSUE W CONTRAST LOCATION: [facility] DATE: 04/10/2023 INDICATION: Hgb 9 ??>6.8 after [...] CT PELVIS SOFT TISSUE W CONTRAST LOCATION: [facility] DATE: 04/10/2023 INDICATION: Hgb 9 >6.8 after [...] - 15.7 g/dL 04/10/2023 6:38 PM CDT LABORATORY Blood STRUCTURE OF RIGHT UPPER LIMB / Unknown Venipuncture / Unknown 04/10/2023 6:20 PM CDT 04/10/2023 6:22 PM CDT Jonathan Linn MD LAB - BLOOD ORDERABL ES Performing Organization Address [facility] [place]/[facility]/ZIP Co de Phone Number [facility] Lab [address] Lab (1st floor, no room number) [place] [address], [facility] [phone] * (ABNORMAL) Glucose (04/10/2023 7:07 AM CDT) Glucose 108(H) 70 - 99 mg/dL 04/10/2023 7:36 AM CDT LABORATORY Blood STRUCTURE OF RIGHT UPPER LIMB / Unknown Venipuncture / Unknown 04/10/2023 7:07 AM CDT 04/10/2023 7:12 AM CDT Jonathan Linn MD LAB - BLOOD ORDERABL ES [facility] Lab [address] Lab (1st floor, no room number) [place] [address], [facility] [phone] * (ABNORMAL) INR (04/10/2023 7:07 AM CDT) INR 1.31(H) 0.85 - 1.15 04/10/2023 7:26 AM CDT LABORATORY Blood STRUCTURE OF RIGHT UPPER LIMB / Unknown Venipuncture / Unknown 04/10/2023 7:07 AM CDT 04/10/2023 7:12 AM CDT Rohini Beal PA-C LAB - BLOOD ORDERA BLES RH LABORATORY [facility] [address] Lab (1st floor, no room number) [place] [address], [facility] [phone] * (ABNORMAL) Basic metabolic panel (04/10/2023 7:07 [...] LAB - BLOOD ORDERABL ES RH LABORATORY [facility] [address] Lab (1st floor, no room number) [place] [address], [facility] [phone] * (ABNORMAL) CBC with platelets (04/10/2023 7:07 [...] MD LAB - BLOOD ORDERABL ES LABORATORY [facility] [address] Lab (1st floor, no room number) [place] [address], [facility] [phone] * (ABNORMAL) INR (04/09/2023 7:39 AM CDT) INR 1.18(H) 0.85 - 1.15 04/09/2023 8:20 AM CDT LABORATORY Blood STRUCTURE OF RIGHT HAND / Unknown Venipuncture / Unknown 04/09/2023 7:39 AM CDT 04/09/2023 7:47 AM CDT Rohini Beal PA-C LAB - BLOOD ORDERA BLES RH LABORATORY [facility] [address] Lab (1st floor, no room number) [place] [address], [facility] [phone] * (ABNORMAL) Basic metabolic panel (04/09/2023 7:39 AM CDT) Pathologist [facility] Sodium 133(L) 136 - 145 mmol/L 04/09/2023 [...] MD LAB - BLOOD ORDERABL ES LABORATORY [facility] [address] Lab (1st floor, no room number) [place] [address], [facility] [phone] * (ABNORMAL) CBC with platelets (04/09/2023 7:39 [...] MD LAB - BLOOD ORDERABL ES LABORATORY [facility] [address] Lab (1st floor, no room number) [place] [address], [place] [phone] * (ABNORMAL) INR (04/08/2023 6:15 PM CDT) INR 1.26(H) 0.85 - 1.15 04/08/2023 6:41 PM CDT RH LABORATORY Blood STRUCTURE OF RIGHT HAND / Unknown Venipuncture / Unknown 04/08/2023 6:15 PM CDT 04/08/2023 6:28 PM CDT Rohini Beal PA-C LAB - BLOOD ORDERA BLES LABORATORY [facility] [address] [facility] [facility] (1st floor, no room number) [place] [address], [facility] [phone] * XR Pelvis w Hip Port Left [...] alignment. Osteopenia. POLO GARCIA MD SYSTEM ID: [id number] Narrative 04/08/2023 4:18 PM CDT XR PELVIS [...] alignment. Osteopenia. POLO GARCIA MD SYSTEM ID: [id number] Rohini [facility] PA-C IMG DIAGNOSTIC PARAM GING ORDERABLES * Creatinine (04/08/2023 3:36 PM CDT) Creatinine 0.54 0.51 - 0.95 mg/dL 04/08/2023 5:00 PM CDT RH LABORATORY GFR Estimate >90 >60 mL/min/1.73 m2 04/08/2023 5:00 PM CDT RH LABORATORY Blood STRUCTURE OF RIGHT HAND / Unknown Venipuncture / Unknown 04/08/2023 3:36 PM CDT 04/08/2023 4:40 PM CDT Rohini Sampsonvernon VT-C LAB - BLOOD ORDERA BLES Performing Organization Address City/[facility]/ZIP Co de Phone Number [facility] Lab [address] Lab (1st floor, no room number) [place] [address], [facility] [phone] * XR Surgery RAAD L/T 5 Min Fluoro w Stills (04/08/2023 2:18 PM CDT) Narrative [facility] - 04/08/2023 2:19 PM CDT This exam was marked as non-reportable because it will not be read by a radiologist or a [place] non-radiologist provider. Fazal Ramirez MD IMG DIAGNOSTIC PARAM GING ORDERABLES Performing Organization Address City/[facility]/ZIP Co de Phone Number [facility] * (ABNORMAL) INR (04/08/2023 3:57 AM CDT) INR 1.39(H) 0.85 - 1.15 04/08/2023 4:28 AM CDT RH LABORATORY Blood STRUCTURE OF RIGHT UPPER LIMB / Unknown Venipuncture / Unknown 04/08/2023 3:57 AM CDT 04/08/2023 4:17 AM CDT Deyanira Locke MD LAB - BLOOD ORDERABL ES Performing Organization Address City/[facility]/ZIP Co de Phone Number RH LABORATORY [facility] [address] Lab (1st floor, no room number) [place] [address], [facility] [phone] * (ABNORMAL) CBC with platelets (04/08/2023 3:57 [...] MD LAB - BLOOD ORDERABL ES LABORATORY [facility] [address] Lab (1st floor, no room number) [place] [address], [facility] [phone] * (ABNORMAL) Basic metabolic panel (04/08/2023 3:57 AM CDT) Pathologist [facility] Sodium 136 136 - 145 mmol/L 04/08/2023 4:40 AM CDT LABORATORY Potassium 4.1 3.4 - 5.3 mmol/L 04/08/2023 4:40 AM CDT LABORATORY Chloride 103 98 - 107 mmol/L [...] MD LAB - BLOOD ORDERABL ES LABORATORY [facility] [address] [facility] Lab (1st floor, no room number) [place] [address], [facility] [phone] * CT Hip Left w/o Contrast (04/07/2023 [...] partially visualized. JEROD YEAGER MD SYSTEM ID: ??[id number] Narrative 04/07/2023 4:[address] HIP [...] partially visualized. JEROD YEAGER MD SYSTEM ID: [id number] Trini Torres PA-C IMG CT ORDERABLES * Adult Type and Screen (04/07/2023 2:54 PM CDT) ABO/RH(D) A NEG 04/07/2023 2:42 PM CDT RH BLOOD BANK Antibody Screen Negative Negative 04/07/2023 2:42 PM CDT RH BLOOD BANK SPECIMEN EXPIRATION DATE [id number] 04/07/2023 2:42 PM CDT RH BLOOD BANK Blood BLOOD SPECIMEN / Unknown Venipuncture / Unknown 04/07/2023 2:54 PM CDT 04/07/2023 3:02 PM CDT Rusty Schultz PA-C LAB - BLOOD B ANK TEST ORDER Performing Organization Address City/State/[facility] Co de Phone Number BLOOD BANK [address] [place] [address] * (ABNORMAL) CBC with platelets and differential [...] LAB - BLOOD O RDERABLES RH LABORATORY [facility] [address] Lab (1st floor, no room number) [place] [address], [facility] [phone] * (ABNORMAL) Basic metabolic panel (BMP) (04/07/2023 2:54 PM CDT) Sodium 135(L) 136 - 145 mmol/L 04/07/2023 [...] - 0.95 mg/dL 04/07/2023 3:38 PM CDT LABORATORY Calcium 9.3 8.8 - 10.2 mg/dL 04/07/2023 3:38 PM CDT LABORATORY Glucose 91 70 - 99 mg/dL 04/07/2023 3:38 PM CDT RH LABORATORY GFR Estimate >90 >60 mL/min/1.7 3m2 04/07/2023 3:38 PM CDT LABORATORY Blood BLOOD SPECIMEN / Unknown Venipuncture / Unknown 04/07/2023 2:54 PM CDT 04/07/2023 3:02 PM CDT Rusty Schultz PA-C LAB - BLOOD O RDERABLES LABORATORY [facility] [address] Lab (1st floor, no room number) [place] [address], [facility] [phone] * Partial thromboplastin time (04/07/2023 2:54 PM CDT) aPTT 33 22 - 38 Seconds 04/07/2023 3:15 PM CDT RH LABORATORY Blood BLOOD SPECIMEN / Unknown Venipuncture / Unknown 04/07/2023 2:54 PM CDT 04/07/2023 3:02 PM CDT Rusty Schultz PA-C LAB - BLOOD O EDDA [facility] [address] Lab (1st floor, no room number) [place] [address], [facility] [phone] * (ABNORMAL) INR (04/07/2023 2:54 PM CDT) INR 1.40(H) 0.85 - 1.15 04/07/2023 3:14 PM CDT LABORATORY Blood BLOOD SPECIMEN / Unknown Venipuncture / Unknown 04/07/2023 2:54 PM CDT 04/07/2023 3:02 PM CDT Rusty Schultz PA-C LAB - BLOOD O EDDA Performing Organization Address City/[facility]/ZIP Co de Phone Number [facility] [address] Lab (1st floor, no room number) [place] [address], [facility] [phone] documented in this encounter Visit Diagnoses Diagnosis Periprosthetic hip fracture, initial encounter- Primary Periprosthetic hip fracture, initial encounter Anemia due to blood loss, acute Acute posthemorrhagic anemia Status post hip replacement, unspecified laterality Periprosthetic hip fracture, initial encounter documented in this encounter Admitting Diagnoses Diagnosis [...] $Given 04/11/2023 11:09 PM CDT 650 mg bupivacaine 0.25 % - EPINEPHrine 1:200,000 injection PRN, Starting on Tue04/08/23 at 1443, Intra-procedure $Given 04/08/2023 2:43 PM CDT 30 mLs calcium carbonate (TUMS) chewable tablet 500 mg 500 mg, Oral, DAILY PRN, heartburn, Starting on 04/11/23 at 0929 $Given 04/11/2023 10:10 AM CDT 500 mg enoxaparin ANTICOAGULANT (LOVENOX) injection 40 mg 40 mg, Subcutaneous, EVERY 24 HOURS, First dose on 04/09/23 at 0800, Check to make sure start date/time is 12-24 hours post op unless documented complication, AND no sooner than 22 hours post op if spinal anesthesia used. Continue until discharge to home. HOLD if platelet count falls below 50% of baseline or less than 100,000/??L and notify provider. $Given 04/12/2023 9:22 AM CDT 40 mg $Given 04/11/2023 8:44 AM CDT 40 mg Ab dominal Tissue $Given 04/10/2023 8:06 AM CDT 40 mg Ri ght Lower Abdomen folic acid (FOLVITE) tablet 1 mg 1 mg, Oral, DAILY, First dose on Tue04/08/23 at 0800 $Given 04/12/2023 9:23 AM CDT 1 mg $Given 04/11/2023 8:43 AM CDT 1 mg $Given 04/10/2023 8:04 AM CDT 1 mg HYDROmorphone (DILAUDID) half-tab 1-2 mg 1-2 mg, Oral, EVERY 3 HOURS PRN, severe pain, Starting on 04/09/23 at 0935 $Given 04/12/2023 12:06 AM CDT [...] $Given 04/09/2023 4:14 AM CDT 0.4 mg hydroxychloroquine (PLAQUENIL) tablet 400 mg Routine, [...] $Given 04/10/2023 3:40 PM CDT 25 mg lactated ringers infusion at 75 mL/hr, Intravenous, [...] 2 MIN PRN, opioid reversal, Starting on [facility] 04/07/23 at 1944, Administer intravenous route when [...] 2 MIN PRN, opioid reversal, Starting on [facility] 04/07/23 at 1944, Administer intramuscular if an [...] TIMES DAILY WITH MEALS, First dose on Tue04/09/23 at 1330, Give with food. $Given 04/12/2023 [...] analgesic side effects. Hold while on IV FIRE EXTINGUISHER TECHNICIAN or with regular IV opioid dosing., , On hold since Tue04/09/2023 at 0936 until manually unheld $Given 04/09/2023 7:02 AM CDT 10 mg $Given 04/09/2023 3:02 AM CDT 10 mg oxyCODONE (ROXICODONE) tablet 5 mg 5 mg, Oral, EVERY 4 HOURS PRN, moderate pain, Starting on Tue04/08/23 at 1520, Hold oral PRN dose for analgesic side effects. Notify provider to assess for uncontrolled pain or analgesic side effects. Hold while on IV FIRE EXTINGUISHER TECHNICIAN or with regular IV opioid dosing., , On hold since 04/09/2023 at 0936 until manually unheld $Given 04/08/2023 10:38 PM CDT 5 mg polyethylene glycol (MIRALAX) [...] $Given 04/09/2023 8:47 AM CDT 17 g povidone-iodine 10% (17 mL) (BETADINE) in 500 mL saline irrigation PRN, Starting on Tue04/08/23 at 1416, Intra-procedure $Given 04/08/2023 2:16 PM CDT 500 ml given Operative Site/Surgical Site prochlorperazine (COMPAZINE) injection 10 mg 10 mg, [...] PM CDT 100 mL/hr sodium chloride 0.9% irrigation (bag) PRN, Starting on Tue04/08/23 at 1416, Intra-procedure $Given 04/08/2023 2:16 PM CDT 4,600 mLs Operative Site/Surgi bubba Site vancomycin (VANCOCIN) topical powder PRN, Starting on Tue04/08/23 at 1409, Intra-procedure $Given 04/08/2023 2:09 PM CDT 1 g Operative Site/Surgi bubba Site venlafaxine (EFFEXOR) tablet 225 mg 225 mg, Oral, 2 TIMES DAILY, First dose on Tue04/07/23 at 2000 $Given 04/12/2023 9:24 AM CDT 225 mg $Given 04/11/2023 8:42 PM CDT 225 mg $Given 04/11/2023 8:44 AM CDT 225 mg documented in this encounter Active and [...] Stevenson RN) 0843 ($Given - Provider: Akosua Thrasher, SRAVANI) 0923 ($Given - Provider: Melissa Alberto RN) [...] IV dormant line 0952 ($Given - Provider: Arnlod Stevenson RN)1541 ($Given - Provider: Arnold Stevenson RN)2333 ($Given - Provider: Alonso Montoya, SRAVANI) 0854 ($Given - Provider: Akosua Thrasher RN)1649 [...] flush in patients receiving a CT scan. 194 ($Given - Provider: Deanna Frankel) venlafaxine (EFFEXOR) tablet 225 mg 225 mg, Oral, 2 TIMES DAILY, First dose on Tue04/07/23 at 1999 0805 ($Given - Provider: Arnold Stevenson RN)2010 ($Given - Provider: Alonso Montoya, SRAVANI) 0844 ($Given - Provider: Akosua Thrasher RN)2042 ($Given - Provider: Elizabeth Deleon RN) 0924 [...] analgesic side effects. Hold while on IV FIRE EXTINGUISHER TECHNICIAN or with regular IV opioid dosing., , [...] analgesic side effects. Hold while on IV FIRE EXTINGUISHER TECHNICIAN or with regular IV opioid dosing., , [...] analgesic side effects. Hold while on IV FIRE EXTINGUISHER TECHNICIAN or with regular IV opioid dosing., , [...] analgesic side effects. Hold while on IV FIRE EXTINGUISHER TECHNICIAN or with regular IV opioid dosing., , [...] documented as of this encounter Care Teams Direct Support Specialist Relationship Specialty Start Date End Date [address] [place] [address] PCP - General Family Medicine 01/25/21 documented as of this encounter
--- OUTSIDE RECORDS SUMMARY | 2023-09-21 15:06 | XMS_ITS | Encounter Summary ---
Author Name Unknown Organization [facility] Address [address] [place] [address]. [place] [address] Care Team Providers Care [employer] Name Role Phone Sima Case Sierra Primary Care Provider [phone] Reason for Visit * Auth/Cert (Routine) Specialty Diagnoses / Procedures Referred By Konstantin katz Referred To Contact Surgery Diagnoses Primary osteoarthritis of left hip Primary osteoarthritis of left hip [M16.12] Procedures NE TOTAL HIP ARTHROPLASTY left total hip arthroplasty [facility] [address] [place] [address] Referral ID Status Reason Start Date Expiration Date Visits Re quested Visits Authorized [id number] 1 1 Encounter Details Date Type Department Care Team (Latest Contact Info) Description 03/25/2023 5:17 AM CDT - 03/26/2023 12:01 PM CDT Hospital Encounter M [facility] [address] [place] [phone] Cj Chen MD [facility] [address] [id number] Status post total hip replacement, left (Primary Dx) Discharge Disposition: Home or Self Care Social [...] suspected to have Coronavirus/COVID-19? No / Unsure 03/25/2023 5:17 AM CDT documented as of this encounter Last Filed Vital Signs Vital Sign Reading Time Taken Comments Blood Pressure 126/69 03/25/2023 8:58 PM CDT Pulse 93 03/25/2023 8:58 PM CDT Temperature 37.1 ??C (98.7 ??F) 03/25/2023 8:58 PM CD T Respiratory Rate 18 03/26/2023 11:50 AM CDT Oxygen Saturation 96% 03/26/2023 2:25 AM CDT Inhaled Oxygen Concentration - - Weight 69.9 kg (154 lb) 03/25/2023 5:59 AM CDT Height 167.6 cm (5' 6) 03/25/2023 5:59 AM CDT Body Mass Index 24.86 03/25/2023 5:59 AM CDT documented in this encounter Medications at Time [...] 225 mg) 0 acetaminophen (TYLENOL) 325 MG tabletIndications:Sta tus post total hip replacement, left Take 2 tablets (650 mg) by mouth every 4 hours as needed for other (mild pain) 100 tablet 0 03/25/2023 04/10/2023 oxyCODONE (ROXICODONE) 5 MG tabletIndications:Sta tus post total hip replacement, left Take 1-2 tablets (5-10 mg) by mouth every 4 hours as needed for moderate to severe pain 20 tablet 0 03/26/2023 04/11/2023 senna-docusate (SENOKOT-S/PERICOLACE ) 8.6-50 MG tabletIndications:Sta tus post total hip replacement, left Take 1 tablet by mouth 2 times daily 60 tablet 0 03/26/2023 04/07/2023 warfarin ANTICOAGULANT (COUMADIN) 2.5 MG tabletIndications:Sta tus post total hip replacement, left Take 2 tablets (5 mg) by mouth daily 60 tablet 0 03/25/2023 04/07/2023 documented as of this encounter Progress Notes * Renny Gtz PA-C - 03/26/2023 10:14 AM CDT Orthopedic Surgery Mora Avalos 03/26/2023 Admit Date: 03/25/2023 POD 1 Day Post-Op S/P Procedure(s): left total hip arthroplasty with removal of hardware Patient is feeling well. Pain controlled. Tolerating oral intake. No events overnight. Discussed pain and recovery expectations with patient and family member. Discharge instructions reviewed. Alert and orient to person, place, and time. Vital Sign Ranges Temperature Temp Av.4 ??F (36.9 ??C) Min: 98.1 ??F (36.7 ??C) Max: 98.7 ??F (37.1 ??C) Blood pressure Systolic (24hrs), Av , Min:119 , Max:146 Diastolic (24hrs), Av, Min:56, Max:78 Pulse Pulse Av.7 Min: 88 Max: 98 Respirations Resp Av.7 Min: 15 Max: 22 Pulse oximetry SpO2 Av.8 % Min: 94 % Max: 100 % Left hip bulky dressing is clean, dry, and intact. Minimal erythema of the surrounding skin. Bilateral calves are soft, non-tender. left lower extremity is NVI. Labs: No results for input(s): POTASSIUM in the last 38884 hours. Recent Labs Lab Test 03/26/23 0936 HGB 10.2* Recent Labs Lab Test 03/26/23 0936 03/25/23 1101 INR 1.08 1.02 No results for input(s): PLT in the last 83838 hours. A/P 1. S/p left MICHELLE (PL A) Continue warfarin for DVT prophylaxis. Mobilize with PT/OT WBAT. Continue current pain regimen. 2. Disposition Anticipate d/c to home with family today. Renny Gtz PA-C * Deb Fox OT - 03/26/2023 9:19 AM CDT Images from the original note were not included. 03/26/23 0826 Appointment Info Signing Clinician's Name / Credentials (OT) Deb Fox OTR/L Quick Adds Quick Adds Certification Living Environment People in Home spouse Current Living Arrangements house Living Environment Comments Bathroom is broken on main level. Walk in shower on second level. Self-Care Usual Activity Tolerance moderate Current Activity Tolerance fair Equipment Currently Used at Home cane, straight Fall history within last six months no General Information Onset of Illness/Injury or Date of Surgery 03/25/23 Referring Physician Cj Chen Patient/Family Therapy Goal Statement (OT) None stated Additional Occupational Profile Info/Pertinent History of Current Problem Admitted for L MICHELLE Existing Precautions/Restrictions fall;no hip IR;no hip ADD past midline;90 degree hip flexion Cognitive Status Examination Cognitive Status Comments Alert and oriented, recalls 2 of 3 hip precautions. Reports lack of sleepaffecting her thinking. Visual Perception Impact of Vision Impairment on Function (Vision) Wears glasses, no deficits noted. Pain Assessment Patient Currently in Pain Yes, see Vital Sign flowsheet (1) Bed Mobility Comment (Bed Mobility) SB A for safety. Balance Balance Comments SB A for safety. Activities of Daily Living BADL Assessment/Intervention (DEP L side due to hip precautions) Clinical Impression Criteria for Skilled Therapeutic Interventions Met (OT) Yes, treatment indicated OT Diagnosis Decreased ADL Influenced by the following impairments hip precautions, pain, decreased flexibility. OT Problem List-Impairments impacting ADL pain;post-surgical precautions Assessment of Occupational Performance 1-3 Performance Deficits Identified Performance Deficits dressing, transfers Planned Therapy Interventions (OT) ADL retraining Clinical Decision Making Complexity (OT) low complexity Risk & Benefits of therapy have been explained evaluation/treatment results reviewed;care plan/treatment goals reviewed;patient OT Total Evaluation Time OT Eval, Low Complexity Minutes (68225) 10 Therapy Certification Medical Diagnosis L MICHELLE Start of Care Date 03/26/23 Certification date from 03/26/23 Certification date to 03/26/23 OT Goals Therapy Frequency (OT) One time eval and treatment OT Predicted Duration/Target Date for Goal Attainment 03/26/23 OT Goals Lower Body Dressing;Toilet Transfer/Toileting OT: Lower Body Dressing Modified independent OT: Toilet Transfer/Toileting Modified independent Interventions Interventions Quick Adds Self-Care/Home Management;Therapeutic Activity Self-Care/Home Management Self-Care/Home Mgmt/ADL, Compensatory, Meal Prep Minutes (25404) 25 Symptoms Noted During/After Treatment (Meal Preparation/Planning Training) fatigue Treatment Detail/Skilled Intervention Educated patient on AE for dressing. Patient dons lower body clothing with MOD I with exception of shoes. Patient too tired to try. Issued elastic laces and patient verbalizes technique to don/doff. Therapeutic Activities Therapeutic Activity Minutes (60252) 15 Symptoms noted during/after treatment fatigue Treatment Detail/Skilled Intervention Educated patient on hip precautions and technique in out of bed. Patient using cane back in to bed to support LLE, SB A. Educated patient on raised toilet seats and shower chairs. Patient will get on her own. OT Discharge Planning OT Plan Discharge OT Discharge Recommendation (DC Rec) home with assist OT Rationale for DC Rec Patient limited in ADL by pain and hip precautions. Has husbands A as needed. OT Brief overview of current status MOD I with AE. Tired. Total Session Time Timed Code Treatment Minutes 40 Total Session Time (sum of timed and untimed services) 50 M [facility] OUTPATIENT OCCUPATIONAL THERAPY EVALUATION PLAN OF TREATMENT FOR OUTPATIENT REHABILITATION (COMPLETE FOR INITIAL CLAIMS ONLY) Patient's Last Name, First Name, M.I. Date of : 1960 Mora Avalos Provider's Name [facility] Onset Date: 03/25/23 Start of Care Date: 03/26/23 Type: ___PT _X_OT ___SLP Medical Diagnosis: L MICHELLE OT Diagnosis: Decreased ADL Visits from SOC: 1 _ Plan of Treatment/Functional Goals Planned Interventions: ADL retraining Goals: See Occupational Therapy Goals on Care Plan in [facility] electronic health record. Therapy Frequency: One time eval and treatment Predicted Duration of Therapy Intervention: 03/26/23 _ I CERTIFY THE NEED FOR THESE SERVICES FURNISHED UNDER THIS PLAN OF TREATMENT AND WHILE UNDER MY CARE . Physician Signature Date X Certification date from: 03/26/23, Certification date to: 03/26/23 Referring Physician: Cj Chen Initial Assessment See Occupational Therapy evaluation dated 03/26/23 in [facility] electronic health record. Associated attestation - Cj Chen MD - 03/29/2023 10:14 AM CDT Physician Attestation I agree with the information in this note. Cj Chen MD, * Karma Colón RN - 03/26/2023 6:14 AM CDT Date/Time 03/25-03/26 4457-4021 AM Patient vital signs are at baseline: Yes Patient able to ambulate as they were prior to admission or with assist devices provided by therapies during their stay: Yes Patient MUST void prior to discharge: Yes Patient able to tolerate oral intake: yes Pain has adequate pain control using Oral analgesics: No, Reason: took IV dilaudid for breakthroughpain Has goal D/C date and time been discussed with patient: No, Reason:TBD Diagnosis:L total hip arthoplasty POD#:1 Mental Status: A/Ox4 Activity/dangle:A1/Gb/walker Diet: regular Pain: Scheduled Tylenol/PRN oxycodone, atarax,roboxin, and IV Dilauded. Buck/Voiding: cont B/B Skin: NA 02/LDA: VSS on RA, PIV SL D/C Date: TBD * Ruben Avilez - 03/25/2023 6:12 AM CDT FOUR SLIDE MACHINE SETTER medications completed by Medication Scribe day of surgery Medication history sources: Patient, Surescripts and H&P In the past week, patient estimated taking medication this percent of the time: Greater than 90% Significant changes made to the medication list: None Additional medication history information: None Medication reconciliation completed by provider prior to medication history? No Time spent in this activity: 20 minutes The information provided in this note is only as accurate as the sources available at the time of update(s) Prior to Admission medications Medication Sig Last Dose Taking? Auth Provider Installations Inspector End Date etanercept (ENBREL) 50 MG/ML injection Inject 50 mg Subcutaneous once a week Wednesdays03/16/2023 at am Yes Reported, Patient Yes folic acid (FOLVITE) 1 MG tablet Take 1 mg by mouth daily 03/24/2023 at am Yes Reported, Patient hydroxychloroquine (PLAQUENIL) 200 MG tablet Take 2 tablets by mouth every morning (2 x 200 mg = 400 mg) 03/24/2023 at am Yes Reported, Patient levETIRAcetam (KEPPRA) 500 MG tablet Take 2 tablets by mouth 2 times daily (2 x 500 mg = 1,000 mg) 03/25/2023 at am Yes Reported, Patient Yes lisinopril-hydrochlorothiazide (ZESTORETIC) 10-12.5 MG tablet Take 1 tablet by mouth daily 03/24/2023 at am Yes Reported, Patient Yes methotrexate 2.5 MG tablet Take 10 tablets by mouth every 7 days Wednesdays (10 x 2.5 mg = 25 mg) 03/16/2023 at am Yes Reported, Patient Yes oxyCODONE (ROXICODONE) 5 MG tablet Take 1-2 tablets (5-10 mg) by mouth every 4 hours as needed for moderate to severe pain (take 1 tab for pain 3-6, 2 tabs for pain 7-10) 03/24/2023 at prn Yes Ana Schaeffer PA-C predniSONE (DELTASONE) 5 MG tablet Take 1 tablet by mouth as needed Unknown at prn Yes Reported, Patient senna-docusate (SENOKOT-S/PERICOLACE) 8.6-50 MG tablet Take 1-2 tablets by mouth 2 times daily Unknown at prn Yes Ana Schaeffer PA-C venlafaxine (EFFEXOR) 75 MG tablet Take 3 tablets by mouth 2 times daily (3 x 75 mg = 225 mg) 03/25/2023 at am Yes Reported, Patient Yes Medication history completed by: Alfonso Avilez CPhT Medication [facility] documented in this encounter H&P Notes * Trini Munoz - 03/25/2023 7:08 AM CDT I have reviewed the surgical (or preoperative) H&P that is linked to this encounter, and examined the patient. There are no significant changes Clinical Conditions Present on Arrival: Clinically Significant Risk Factors Present on Admission Source Note - Outside, Provider - 03/22/2023 12:31 PM CDT documented in this encounter Miscellaneous Notes * Plan of Care - April Alberts RN - 03/26/2023 10:50 AM CDT Goal Outcome Evaluation: .Patient vital signs are at baseline: Yes Patient able to ambulate as they were prior to admission or with assist devices provided by therapies during their stay: Yes Patient MUST void prior to discharge: Yes Patient able to tolerate oral intake: Yes Pain has adequate pain control using Oral analgesics: Yes Does patient have an identified assistant track and field coach: Yes Has goal D/C date and time been discussed with patient: Yes Pt. A&o, vss, up with one assist and walker, voiding adequate amount in b.r, taking oxycodone for pain, dressing CDI, discharge instructions reviewed with pt. discharge medication given to the ptand discharge to home with at 11:50. * Plan of Care - Saadia Rodriguez RN - 03/25/2023 7:00 PM CDT Goal Outcome Evaluation: Pt A&OX4, VSS on RA. ASX1 with GB and walker to BR. CMS intact. Dressing on left hip CDI. Pain managed by scheduled Tylenol, prn Oxycodone, dilaudid and Toradol. IV infusing 75mL/hr. Will continue to monitor. * Plan of Care - Angie Grayson, PT - 03/25/2023 4:06 PM CDT 03/25/23 2823 Appointment Info Signing Clinician's Name / Credentials (PT) Angie Grayson DPT Quick Adds Quick Adds Certification Living Environment People in Home spouse Current Living Arrangements house Living Environment Comments Pt lives in 2 story home 2 [address], flight to main level Self-Care Usual Activity Tolerance moderate Current Activity Tolerance fair Equipment Currently Used at Home cane, straight Fall history within last six months no Activity/Exercise/Self-Care Comment Pt mod I with SEC prior to surgery, chronic pain per pt General Information Onset of Illness/Injury or Date of Surgery 03/25/23 Referring Physician Cj Chen MD Pertinent History of Current Problem (include personal factors and/or comorbidities that impact thePOC) L MICHELLE Existing Precautions/Restrictions fall;no hip IR;no hip ADD past midline;90 degree hip flexion Weight-Bearing Status - LLE weight-bearing as tolerated Weight-Bearing Status - RLE weight-bearing as tolerated Cognition Affect/Mental Status (Cognition) WNL Pain Assessment Patient Currently in Pain Yes, see Vital Sign flowsheet (Chronic pain, has pain in L glut at baseline, this is site of most pain at this time) Integumentary/Edema Integumentary/Edema Comments Dressing clean, dry, no drainage Posture Posture Forward head position Range of Motion (ROM) ROM Comment BLE WFL Strength (Manual Muscle Testing) Strength Comments Gross functional weakness with OOB mobility Bed Mobility Comment, (Bed Mobility) Supine > sitting EOB CGA Transfers Comment, (Transfers) STS FWW CGA Gait/Stairs (Locomotion) Distance in Feet 5' eval FWW CGA Comment, (Gait/Stairs) CGA FWW, short step length, antalgic gait pattern Balance Balance Comments good dynamic balance with use of FWW Sensory Examination Sensory Perception Comments Intact to light touch Clinical Impression Criteria for Skilled Therapeutic Intervention Yes, treatment indicated PT Diagnosis (PT) impaired IND with mobility from baseline Influenced by the following impairments Pain, gross functional weakness, impaired high level balance Functional limitations due to impairments impaired IND with mobility from baseline Clinical Presentation (PT Evaluation Complexity) Stable/Uncomplicated Clinical Presentation Rationale clinical judgement Clinical Decision Making (Complexity) low complexity Planned Therapy Interventions (PT) balance training;bed mobility training;cryotherapy;gait training;home exercise program;patient/family education;stair training;strengthening;transfer training Risk & Benefits of therapy have been explained evaluation/treatment results reviewed;risks/benefits reviewed;care plan/treatment goals reviewed;patient PT Total Evaluation Time PT Eval, Low Complexity Minutes (30647) 10 Plan of Care Review Plan of Care Reviewed With patient Therapy Certification Start of care date 03/25/23 Certification date from 03/25/23 Certification date to 03/27/23 Medical Diagnosis MICHELLE Physical Therapy Goals PT Frequency 2x/day PT Predicted Duration/Target Date for Goal Attainment 03/27/23 PT Goals Transfers;Bed Mobility;Gait;Stairs PT: Bed Mobility Supine to/from sit;Rolling;Within precautions;Supervision/stand-by assist PT: Transfers Supervision/stand-by assist;Sit to/from stand;Bed to/from chair;Assistive device;Within precautions PT: Gait Supervision/stand-by assist;Greater than 200 feet;Rolling walker;Within precautions PT: Stairs Supervision/stand-by assist;Greater than 10 stairs;Rail on right;Within precautions;Assistive device PT Discharge Planning PT Plan Bed mobility, transfers, gait, stairs, HEP PT Rationale for DC Rec defer to ortho PT Brief overview of current status Precautions maintained. Pt with inc pain in L glut ms limiting tolerance to OOB mobility, overall SBA-CGA with FWW predict will meet AM PT goals Total Session Time Total Session Time (sum of timed and untimed services) 10 M [facility] OUTPATIENT PHYSICAL THERAPY EVALUATION PLAN OF TREATMENT FOR OUTPATIENT REHABILITATION (COMPLETE FOR INITIAL CLAIMS ONLY) Patient's Last Name, First Name, M.I. Date of : 1960 Mora Avalos Provider's Name [facility] Onset Date: 03/25/23 Start of Care Date: 03/25/23 Type: _X_PT ___OT ___SLP Medical Diagnosis: MICHELLE PT Diagnosis: impaired IND with mobility from baseline Visits from SOC: 1 See note for plan of treatment, functional goals and certification details I CERTIFY THE NEED FOR THESE SERVICES FURNISHED UNDER THIS PLAN OF TREATMENT AND WHILE UNDER MY CARE (Physician co-signature of this document indicates review and certification of the therapy plan). LINER Associated attestation - Cj Chen MD - 08/12/2023 8:23 AM SOCK LINER Agree with note * Pharmacy-Anticoagulation Service - Rohini Chua, [facility] - 03/25/2023 11:23 AM CDT Clinical Pharmacy - Warfarin Dosing Consult Pharmacy has been consulted to manage this patient???s warfarin therapy. Indication: DVT/PE Prophylaxis Therapy Goal: INR 2-3 Warfarin Prior to Admission: No INR Date Value Ref Range Status 03/25/2023 1.02 0.85 - 1.15 Final Recommend warfarin 5 mg today. Pharmacy will monitor Mora Avalos daily and order warfarin doses to achieve specified goal. Please contact pharmacy as soon as possible if the warfarin needs to be held for a procedure or if the warfarin goals change. * Brief Op Note - Cj Chen MD - 03/25/2023 11:23 AM CDT [facility] Brief Operative Note Pre-operative diagnosis: Primary osteoarthritis of left hip [M16.12] Post-operative diagnosis Same as pre-operative diagnosis Procedure: Procedure(s): left total hip arthroplasty with removal of hardware Surgeon: Surgeon(s) and Role: * Cj Chen MD - Primary * Vira Fernandes PA-C - Assisting Anesthesia: Choice Estimated Blood Loss: 150 mL from 03/25/2023 7:35 AM to 03/25/2023 9:08 AM Drains: None Specimens: * No specimens in log * Findings: None. Complications: None. Implants: Implant Name Type Inv. Item Serial No. Semiconductor Manufacturing Technician Lot No. LRB No. Used Action 6.5 mm Cannulated Screws, 16mm thread length 80mm SYNTHES 24 JAN 2021 Left 3 Explanted Titanium Washer, 13.0 mm SYNTHES 24 JAN 2021 [id number] Left 3 Explanted TRIDENT II TRITANIUM CLUSTERHOLE 52E - [id number] Total Joint Component/Insert TRIDENT II TRITANIUMCLUSTERHOLE 52E [employer] [id number] Left 1 Implanted INSERT JONATAN 36MM 0DEG X3 723-00-36E - [id number] Total Joint Component/Insert INSERT JONATAN 36MM 0DEG X3 723-00-36E [employer] [id number] Left 1 Implanted IMP STEM FEMORAL HIP STRK ACCOLADE II 132DEG SZ 5 2691-2041 - [id number] Total Joint Component/Insert IMP STEM FEMORAL HIP STRK ACCOLADE II 132DEG SZ 5 2451- 4621 [employer] [id number] Left 1 Implanted IMP HEAD FEMORAL STRK BIOLOX DELTA CERAMIC 36MM +2.5MM - [id number] Total Joint Component/Insert IMP HEAD FEMORAL STRK BIOLOX DELTA CERAMIC 36MM +2.5MM [employer] [id number] Left 1 Implanted * Op Note - Cj Chen MD - 03/25/2023 9:42 AM CDT Procedure Date: 03/25/2023 PREOPERATIVE DIAGNOSIS: Avascular necrosis, status post pinning of left femoral neck fracture. POSTOPERATIVE DIAGNOSIS: Avascular necrosis, status post pinning of left femoral neck fracture. PROCEDURES: 1. Left hip removal of hardware. 2. Left total hip arthroplasty. SURGEON: Cj Chen MD. HEADLINE WRITER: Vira Fernandes PA-C. ANESTHESIA: Spinal with sedation. ESTIMATED BLOOD LOSS: 150 mL. INTRAOPERATIVE COMPLICATIONS: None apparent. OPERATIVE INDICATIONS: The patient is a 62-year-old female who previously underwent pinning of a left minimally displaced femoral neck fracture. She went on to develop avascular necrosis with joint collapse and, therefore, elected to proceed with a total hip arthroplasty. DESCRIPTION OF PROCEDURE: The patient was identified in the preoperative holding area, and the operative site was marked. Consent was again reviewed, and all questions were answered. She was taken tothe operating room, placed under spinal anesthesia and positioned in the right lateral decubitus position, with all bony prominences well padded, with the left lower extremity prepped and draped in the usual sterile fashion. Preoperative antibiotics were administered and a timeout called to ensure the correct operative site and procedure. A longitudinal incision was made along the posterior border of the greater trochanter, with sharp dissection carried down through skin and subcutaneous tissues. Further dissection was carried down through the iliotibial band and gluteal fascia. The gluteal fascia was split bluntly in line with its fibers. The screws and washers along the greater trochanterwere identified. The short external rotators and posterior capsule were then taken down to the posterior- based flap and tagged for later repair. The hip was dislocated and the neck cut made based offpreoperative templating. Acetabular retractors were positioned, and remnant labrum and fovea tissuewere excised. Sequential reaming commenced up to a size 52, at which time there was excellent bleeding cancellous bone base throughout with a small cyst. This was packed with autograft bone. The size52 Trident II Tritanium cluster-hole acetabular shell was opened and impacted in appropriate version and inclination, referencing the transverse acetabular ligament. There was good fit of the cup. Therefore, the 0-degree polyethylene liner was placed. The proximal femur was then exposed. The box cut and canal finder were used to enter the canal, followed by sequential broaching up to a size 5, atwhich time there was an excellent fit along the calcar. Trial reduction restored appropriate jew of leg length, offset and stability. The size 5 Accolade II 132-degree neck angle hip stem wasopened and impacted, matching the patient's [place] femoral version. Multiple trial reductions were p erformed, and the +2.5 mm neck length, ultimately, was selected and placed, providing appropriate instability in the sleeper position with the hip flexed at 90 degrees. The wound was then copiously irrigated after soaking in a dilute Betadine solution. A gram of vancomycin powder was placed deep into the wound. The short external rotators and posterior capsule were repaired through drill holes. The iliotibial band and gluteal fascia were closed with Vicryl suture followed by layered wound closure. Sterile dressings were applied. The patient was then awoken from anesthesia and transferred to the postanesthesia care unit in stable condition. Vira Fernandes PA-C, was present and scrubbed throughout the case, and her assistance was critical for patient positioning and assistance with prepping, draping, soft tissue retraction, hip mobilization, wound closure and dressing application. Cj Chen MD MT: yahaira Name: MORA AVALOS MRN: [id number] Account: [id number] : 1960 Procedure Date: 03/25/2023 Document: [id number] documented in this encounter Plan of Treatment Not on file documented as of this encounter Goals Goal Patient Goal Type Associated Problems Recent Progress Patient-Stated? Author Total Joint Replacement Hip Pathway Care Plan Total Joint Replacement Hip Pathway Octavia Hammond documented as of this encounter Procedures Procedure Name Priority Date/Time Associated Diagnosis Comments INR Routine 03/26/2023 9:36 AM CDT HEMOGLOBIN Routine 03/26/2023 9:36 AM CDT GLUCOSE Routine 03/26/2023 9:36 AM CDT INR STAT 03/25/2023 11:01 AM CDT XR PELVIS AND HIP PORTABLE LEFT 1 VIEW STAT 03/25/2023 9:54 AM CDT ARTHROPLASTY, HIP, TOTAL 03/25/2023 7:35 AM CDT Primary osteoarthritis of left hip Case Notes DANTE REVIEWED Special Needs *bmi(03/21)=30.79 htn, seizure. Scheduled Left, patient confirmed Left is correct. documented in this encounter Results * INR (03/26/2023 9:36 AM CDT) INR 1.08 0.85 - 1.15 03/26/2023 10:02 AM CDT LABORATORY Blood STRUCTURE OF LEFT UPPER LIMB / Unknown Venipuncture / Unknown 03/26/2023 9:36 AM CDT 03/26/2023 9:49 AM CDT Cj Chen MD LAB - BLOOD ORDERABL ES LABORATORY [facility] [address] 1[address] floor, [address] [place] [address], [facility] [phone] * (ABNORMAL) Hemoglobin (03/26/2023 9:36 AM CDT) Hemoglobin 10.2(L) 11.7 - 15.7 g/dL 03/26/2023 9:52 AM CDT LABORATORY Blood STRUCTURE OF LEFT UPPER LIMB / Unknown Venipuncture / Unknown 03/26/2023 9:36 AM CDT 03/26/2023 9:49 AM CDT Cj Chen MD LAB - BLOOD ORDERABL ES Performing Organization Address City/[facility]/ZIP Co de Phone Number LABORATORY [facility] [address] 1[address], [address] [place] [address], [place] [phone] * (ABNORMAL) Glucose (03/26/2023 9:36 AM CDT) Glucose 123(H) 70 - 99 mg/dL 03/26/2023 10:23 AM CDT LABORATORY Patient Fasting > 8hrs? No 03/26/2023 10:23 AM CDT LABORATORY Blood STRUCTURE OF LEFT UPPER LIMB / Unknown Venipuncture / Unknown 03/26/2023 9:36 AM CDT 03/26/2023 9:49 AM CDT Cj Chen MD LAB - BLOOD ORDERABL ES Performing Organization Address City/[facility]/ZIP Co de Phone Number LABORATORY [facility] [address] 1[address], [address] [place] [address], [place] [phone] * INR (03/25/2023 11:01 AM CDT) INR 1.02 0.85 - 1.15 03/25/2023 11:17 AM CDT LABORATORY Blood STRUCTURE OF LEFT UPPER LIMB / Unknown Venipuncture / Unknown 03/25/2023 11:01 AM CDT 03/25/2023 11:07 AM CDT jC Chen MD LAB - BLOOD ORDERABL ES LABORATORY [facility] [address] 1[address], [address] [place] [address], [place] [phone] * XR Pelvis w Hip Port Left 1 View (03/25/2023 9:54 AM CDT) Anatomical Region Laterality Modality Abdomen/Pelvis Left Digital Radiogra phy Impressions 03/25/2023 10:19 AM CDT IMPRESSION: Removal of hardware and left total hip arthroplasty. Negative for postoperative purposes. [facility]BLE SANTIAGO DO SYSTEM ID: [id number] Narrative 03/25/2023 10:19 AM CDT EXAM: XR PELVIS AND HIP PORTABLE LEFT 1 VIEW DATE/TIME: 03/25/2023 9:54 AM INDICATION: Status post Hip surgery COMPARISON: Intraoperative fluoroscopic images 01/25/2021. Procedure Note Humble Santiago DO - 03/25/2023 EXAM: XR PELVIS AND HIP PORTABLE LEFT 1 VIEW DATE/TIME: 03/25/2023 9:54 AM INDICATION: Status post Hip surgery COMPARISON: Intraoperative fluoroscopic images 01/25/2021. IMPRESSION: Removal of hardware and left total hip arthroplasty. Negative for postoperative purposes. [facility] [employer] ID: [id number] Cj Chen MD IMG DIAGNOSTIC IMAGI NG ORDERABLES documented in this encounter Visit Diagnoses Diagnosis S/P hip replacement- Primary Hip joint replacement by other means Status post total hip replacement, left documented in this encounter Admitting Diagnoses Diagnosis S/P hip replacement Hip joint replacement by other means documented in this encounter Administered Medications Inactive Administered Medications - up to 3 most recent administrations Medication Order MAR Action Action Date Dose Rate Site acetaminophen (TYLENOL) tablet 650 mg 650 mg, Oral, EVERY 4 HOURS PRN, other, For optimal non-opioid multimodal pain management to improve pain control., Starting on Tue03/28/23 at 0000, May give first dose 4 hours after last scheduled dose of acetaminophen (TYLENOL). Maximum acetaminophen dose from all sources = 75 mg/kg/day not to exceed 4 grams/day. acetaminophen (TYLENOL) tablet 975 mg 975 mg, Oral, EVERY 8 HOURS, First dose on Tue03/25/23 at 1100, For 3 days, Administer for multimodal surgical pain management. Maximum acetaminophen dose from all sources = 75 mg/kg/day not to exceed 4 grams/day. $Given 03/26/2023 11:30 AM CDT 975 mg $Given 03/26/2023 2:25 AM CDT 975 mg $Given 03/25/2023 6:15 PM CDT 975 mg benzocaine-menthol (CHLORASEPTIC) 6-10 MG lozenge 1 lozenge 1 lozenge, Buccal, EVERY 1 HOUR PRN, sore throat, sore throat without fever, Starting on Tue03/25/23 at 1043 bisacodyl (DULCOLAX) suppository 10 mg 10 mg, Rectal, DAILY PRN, constipation, Use if Magnesium hydroxide (MILK of MAGNESIA) not effective after 24 hours. May discontinue if patient having bowel movement., Starting on Tue03/25/23 at 1043, Hold for loose stools. ceFAZolin (ANCEF) 1 g vial to attach to NS 100 ml bag for ADULT or 50 ml bag for PEDS Routine, 1 g, Intravenous, EVERY 8 HOURS, First dose on Tue03/25/23 at 1500, For 2 doses, First post-op dose due 8 hours after intra-op dose, see eMAR., Indications: Perioperative Pharmacoprophylaxis $New Bag 03/25/2023 10:59 PM CDT 1 g $New Bag 03/25/2023 3:09 PM CDT 1 g HYDROmorphone (DILAUDID) injection 0.2 mg 0.2 mg, Intravenous, EVERY 2 HOURS PRN, moderate pain, Starting on Tue03/25/23 at 1043, IF patient unable to take oral pain medication or pain not controlled with oral analgesics. Hold IV PRN opioid dose for analgesic side effects. Notify provider to assess for uncontrolled pain or analgesic side effects. HYDROmorphone (DILAUDID) injection 0.4 mg 0.4 mg, Intravenous, EVERY 2 HOURS PRN, severe pain, Starting on Tue03/25/23 at 1043, IF patient unable to take oral pain medication or pain not controlled with oral analgesics. Hold IV PRN opioid dose for analgesic side effects. Notify provider to assess for uncontrolled pain or analgesic side effects. $Given 03/26/2023 7:04 AM CDT 0.4 mg $Given 03/26/2023 2:25 AM CDT 0.4 mg $Given 03/25/2023 4:54 PM CDT 0.4 mg hydrOXYzine (ATARAX) tablet 25 mg 25 mg, Oral, EVERY 6 HOURS PRN, other, adjuvant pain, Starting on Tue03/25/23 at 1043 $Given 03/26/2023 12:02 AM CDT 25 mg $Given 03/25/2023 2:30 PM CDT 25 mg ketorolac (TORADOL) injection 15 mg 15 mg, Intravenous, ONCE, On Tue03/25/23 at 1730, For 1 dose, Okay to repeat once after 4 hours PRN Can cause pain on injection. If ordered intravenously (IV) : administer through a running maintenance fluid over 1 minute followed by a flush. If patient complains of pain on injection, may dilute 15-30 mg in 5 mL and push over 1 to 2 minutes. $Given 03/25/2023 6:15 PM CDT 15 mg lactated ringers infusion at 10 mL/hr, Intravenous, CONTINUOUS, IF patient NOT on dialysis., Pre-procedure, Starting on Tue03/25/23 at 0630, Until Tue03/25/23 at 0910 $New Bag 03/25/2023 6:26 AM CDT 10 mL /hr lactated ringers infusion at 75 mL/hr, Intravenous, CONTINUOUS, Change to saline lock when PO well tolerated., Starting on Tue03/25/23 at 1100, Until Tue03/26/23 at 1402 $New Bag 03/25/2023 11:36 AM CDT 75 mL/hr levETIRAcetam (KEPPRA) tablet 1,000 mg 1,000 mg, Oral, 2 TIMES DAILY, First dose on Tue03/25/23 at 2200 $Given 03/26/2023 8:18 AM CDT 1,000 mg $Given 03/25/2023 10:58 PM CDT 1,000 mg lidocaine (LMX4) cream Topical, EVERY 1 HOUR PRN, pain, with VAD insertion, Starting on Tue03/25/23 at 1043, Apply at least 30 minutes prior to [...] mild pain with VAD insertion, Starting on Tue03/25/23 at 1043, MAX dose 1 mL subcutaneous OR intradermal [...] polyethylene glycol) are not effective., Starting on Tue03/25/23 at 1043, Shake well. Hold for loose stools. methocarbamol (ROBAXIN) tablet 500 mg 500 mg, Oral, 2 TIMES DAILY PRN, muscle spasms, Starting on Tue03/25/23 at 1708 $Given 03/26/2023 1:11 AM CDT 500 mg $Given 03/25/2023 6:16 PM CDT 500 mg naloxone (NARCAN) injection 0.2 mg 0.2 mg, Intravenous, EVERY 2 MIN PRN, opioid reversal, Starting on Tue03/25/23 at 1047, Administer intravenous route when available and notify [...] 2 MIN PRN, opioid reversal, Starting on Tue03/25/23 at 1047, Administer intramuscular if an intravenous route is [...] 2 MIN PRN, opioid reversal, Starting on Tue03/25/23 at 1047, Administer intravenous route when available and notify [...] 2 MIN PRN, opioid reversal, Starting on Tue03/25/23 at 1047, Administer intramuscular if an intravenous route is [...] doses. ondansetron (ZOFRAN ODT) ODT tab 4 mg 4 mg, Oral, EVERY 6 HOURS PRN, nausea, vomiting, Starting on Tue03/25/23 at 1043, This is Step 1 of nausea and [...] vomiting, Administer over 2-5 Minutes, Starting on Tue03/25/23 at 1043, This is Step 1 of nausea and vomiting management. If nausea not resolved in 15 minutes, go to Step 2 prochlorperazine (COMPAZINE). Irritant. oxyCODONE (ROXICODONE) tablet 10 mg 10 mg, Oral, EVERY 4 HOURS PRN, severe pain, Starting on Tue03/25/23 at 1043, Hold oral PRN dose for analgesic side effects. Notify provider to assess for uncontrolled pain or analgesic side effects. Hold while on IV [employer] or with regular IV opioid dosing. $Given 03/26/2023 11:30 AM CDT 10 mg $Given 03/26/2023 4:03 AM CDT 10 mg $Given 03/26/2023 12:02 AM CDT 10 mg oxyCODONE (ROXICODONE) tablet 5 mg 5 mg, Oral, EVERY 4 HOURS PRN, moderate pain, Starting on Tue03/25/23 at 1043, Hold oral PRN dose for analgesic side effects. Notify provider to assess for uncontrolled pain or analgesic side effects. Hold while on IV [employer] or with regular IV opioid dosing. $Given 03/25/2023 1:25 PM CDT 5 mg polyethylene glycol (MIRALAX) Packet 17 g 17 g, Oral, DAILY, First dose on Tue03/26/23 at 0900, To prevent constipation. Mixed prescribed dose in [...] bowel prep regimen or bowel clean out. prochlorperazine (COMPAZINE) injection 10 mg 10 mg, Intravenous, EVERY 6 HOURS PRN, nausea, vomiting, Administer over 1-2 Minutes, Starting on Tue03/25/23 at 1043, This is Step 2 of nausea and vomiting management. If nausea not resolved in 15-30 minutes, Notify provider. prochlorperazine (COMPAZINE) tablet 10 mg 10 mg, Oral, EVERY 6 HOURS PRN, nausea, vomiting, Starting on Tue03/25/23 at 1043, This is Step 2 of nausea and vomiting management. If nausea not resolved in 15-30 minutes, Notify provider. senna-docusate (SENOKOT-S/PERICOLACE) 8.6-50 MG per tablet 1 tablet 1 tablet, Oral, 2 TIMES DAILY, First dose on Tue03/25/23 at 1100, To prevent constipation. Hold for loose stools Hold for loose stools. $Given 03/26/2023 8:18 AM CDT 1 tablet $Given 03/25/2023 9:03 PM CDT 1 tablet $Given 03/25/2023 11:36 AM CDT 1 tablet sodium chloride (PF) 0.9% PF flush 3 mL 3 mL, Intracatheter, EVERY 8 HOURS, First dose on Tue03/25/23 at 1100, to lock peripheral IV dormant line $Given 03/25/2023 11:37 AM CDT 3 mLs sodium chloride (PF) 0.9% PF flush 3 mL 3 mL, Intracatheter, EVERY 1 MIN PRN, line flush, other, to ensure patency or to lock dormant line, Starting on Tue03/25/23 at 1043 tranexamic acid (LYSTEDA) tablet 1,950 mg 1,950 mg, Oral, ONCE, On Tue03/25/23 at 0630, For 1 dose, Administer with a sip of water in PRE OP area 90 minutes PRIOR to leaving Pre-op area., Pre-procedure $Given 03/25/2023 6:23 AM CDT 1,950 mg venlafaxine (EFFEXOR) tablet 225 mg 225 mg, Oral, 2 TIMES DAILY, First dose on Tue03/25/23 at 2200 $Given 03/26/2023 8:18 AM CDT 225 mg $Given 03/25/2023 10:58 PM CDT 225 mg WARFARIN (COUMADIN) THERAPY REMINDER SEE ADMIN INSTRUCTIONS, Starting on Tue03/25/23 at 1043, Until Tue03/26/23 at 1402, Reorder warfarin (COUMADIN) daily Patient is on Warfarin Therapy - check for daily order warfarin ANTICOAGULANT (COUMADIN) tablet 5 mg 5 mg, Oral, ONCE AT 6PM, On Tue03/25/23 at 1800, For 1 dose $Given 03/25/2023 6:16 PM CDT 5 mg documented in this encounter Active and Recently Administered Medications Times are shown in CDT. Scheduled Medication Order 03/24/2023 03/25/2023 03/26/2023 acetaminophen (TYLENOL) tablet 975 mg 975 mg, Oral, EVERY 8 HOURS, First dose on Tue03/25/23 at 1100, For 3 days, Administer for multimodal surgical pain management. Maximum acetaminophen dose from all sources = 75 mg/kg/day not to exceed 4 grams/day. 1135 ($Given - Provider: Saadia Rodriguez RN)1815 ($Given - Provider: Saadia Rodriguez RN) 0225 ($Given - Provider: Karma Colón RN)1122 (Not Given - Provider: April Alberts RN - Reason: Patient/family refused)1130 ($Given - Provider: April Alberts RN) ceFAZolin (ANCEF) 1 g vial to attach to NS 100 ml bag for ADULT or 50 ml bag for PEDS (COMPLETED) Routine, 1 g, Intravenous, EVERY 8 HOURS, First dose on Tue03/25/23 at 1500, For 2 doses, First post-op dose due 8 hours after intra-op dose, see eMAR., Indications: Perioperative Pharmacoprophylaxis 1509 ($New Bag - Provider: Saadia Rodriguez RN)2259 ($New Bag - Provider: Karma Colón, SRAVANI) ceFAZolin Sodium (ANCEF) injection 2 g (COMPLETED) Routine, 2 g, Intravenous, PRE-OP/PRE-PROCEDURE, Starting on Tue03/25/23 at 0605, For 1 dose, Give first dose within 1 hour PRIOR to incision. If patient weight is greater than or equal to 120 kg increase dose to 3 g., Indications: Perioperative Pharmacoprophylaxis, Pre-procedure 0732 ($Given - Provider: Melissa Molina APRN CRNA) ketorolac (TORADOL) injection 15 mg (COMPLETED) 15 mg, Intravenous, ONCE, On Tue03/25/23 at 1730, For 1 dose, Okay to repeat once after 4 hours PRN Can cause pain on injection. If ordered intravenously (IV) : administer through a running maintenance fluid over 1 minute followed by a flush. If patient complains of pain on injection, may dilute 15-30 mg in 5 mL and push over 1 to 2 minutes. 1815 ($Given - Provider: Saadia Rodriguez RN) levETIRAcetam (KEPPRA) tablet 1,000 mg 1,000 mg, Oral, 2 TIMES DAILY, First dose on Tue03/25/23 at 2200 2258 ($Given - Provider: Karma Colón, SRAVANI) 0818 ($Given - Provider: April Alberts RN) polyethylene glycol (MIRALAX) Packet 17 g 17 g, Oral, DAILY, First dose on Tue03/26/23 at 0900, To prevent constipation. Mixed prescribed dose in [...] bowel prep regimen or bowel clean out. 0821 (Not Given - Provider: April Alberts RN - Reason: Patient/family refused) ropivacaine (NAROPIN) 5 MG/ML 300 mg, EPINEPHrine (ADRENALIN) 0.6 mg in sodium chloride 0.9 % 100 mL (ORTHO SANDRO CUSTOM DOSE) (COMPLETED) INTRA-ARTICULAR, [employer] HATCH[employer] SUPERVISOR TO O.R., Starting on Tue03/25/23 at 0724, For 1 dose, NOT FOR IV INJECTION. Used by provider at the end of surgery. Reason for custom entry: Aspirin allergy - anaphylaxis 0838 ($Given - Provider: Cj Chen MD) senna-docusate (SENOKOT-S/PERICOLACE) 8.6-50 MG per tablet 1 tablet 1 tablet, Oral, 2 TIMES DAILY, First dose on Tue03/25/23 at 1100, To prevent constipation. Hold for loose stools Hold for loose stools. 1136 ($Given - Provider: Saadia Rodriguez RN)2103 ($Given - Provider: Karma Colón RN) 0818 ($Given - Provider: April Alberts RN) sodium chloride (PF) 0.9% PF flush 3 mL 3 mL, Intracatheter, EVERY 8 HOURS, First dose on Tue03/25/23 at 1100, to lock peripheral IV dormant line 1137 ($Given - Provider: Saadia Rodriguez RN)1816 (Not Given - Provider: Saadia Rodriguez RN - Reason: IV Infusing) 0232 (Canceled Entry - Provider: Karma Colón RN)1132 (Not Given - Provider: April Alberts RN - Reason: Loss of IV access) tranexamic acid (LYSTEDA) tablet 1,950 mg (COMPLETED) 1,950 mg, Oral, ONCE, On Tue03/25/23 at 0630, For 1 dose, Administer with a sip of water in PRE OP area 90 minutes PRIOR to leaving Pre-op area., Pre-procedure 0623 ($Given - Provider: Dana Rizzo RN) venlafaxine (EFFEXOR) tablet 225 mg 225 mg, Oral, 2 TIMES DAILY, First dose on Tue03/25/23 at 2200 2258 ($Given - Provider: Karma Colón RN) 0818 ($Given - Provider: April Alberts RN) WARFARIN (COUMADIN) THERAPY REMINDER SEE ADMIN INSTRUCTIONS, Starting on Tue03/25/23 at 1043, Until 03/26/23 at 1402, Reorder warfarin (COUMADIN) daily Patient is on Warfarin Therapy - check for daily order warfarin ANTICOAGULANT (COUMADIN) tablet 5 mg (COMPLETED) 5 mg, Oral, ONCE AT 6PM, On Tue03/25/23 at 1800, For 1 dose 1816 ($Given - Provider: Saadia Rodriguez RN) Continuous Medication Order 03/24/2023 03/25/2023 03/26/2023 lactated ringers infusion (CANCELED) at 10 mL/hr, Intravenous, CONTINUOUS, IF patient NOT on dialysis., Pre-procedure, Starting on Tue03/25/23 at 0630, Until Tue03/25/23 at 0910 0626 ($New Bag - Provider: Dana Rizzo RN) lactated ringers infusion at 75 mL/hr, Intravenous, CONTINUOUS, Change to saline lock when PO well tolerated., Starting on Tue03/25/23 at 1100, Until 03/26/23 at 1402 1136 ($New Bag - Provider: Saadia Rodriguez RN) PRN Medication Order 03/24/2023 03/25/2023 03/26/2023 acetaminophen (TYLENOL) tablet 650 mg 650 mg, Oral, EVERY 4 HOURS PRN, other, For optimal non-opioid multimodal pain management to improve pain control., Starting on Tue03/28/23 at 0000, May give first dose 4 hours after last scheduled dose of acetaminophen (TYLENOL). Maximum acetaminophen dose from all sources = 75 mg/kg/day not to exceed 4 grams/day. benzocaine-menthol (CHLORASEPTIC) 6-10 MG lozenge 1 lozenge 1 lozenge, Buccal, EVERY 1 HOUR PRN, sore throat, sore throat without fever, Starting on Tue03/25/23 at 1043 bisacodyl (DULCOLAX) suppository 10 mg 10 mg, Rectal, DAILY PRN, constipation, Use if Magnesium hydroxide (MILK of MAGNESIA) not effective after 24 hours. May discontinue if patient having bowel movement., Starting on Tue03/25/23 at 1043, Hold for loose stools. HYDROmorphone (DILAUDID) injection 0.2 mg(Linked Group 1) 0.2 mg, Intravenous, EVERY 2 HOURS PRN, moderate pain, Starting on Tue03/25/23 at 1043, IF patient unable to take oral pain medication or pain not controlled with oral analgesics. Hold IV PRN opioid dose for analgesic side effects. Notify provider to assess for uncontrolled pain or analgesic side effects. 1503 (See Alternative - Provider: Saadia Rodriguez RN)1654 (See Alternative - Provider: Saadai Rodriguez RN) 0225 (See Alternative - Provider: Karma Colón RN)0704 (See Alternative - Provider: Karma Colón RN) HYDROmorphone (DILAUDID) injection 0.4 mg(Linked Group 1) 0.4 mg, Intravenous, EVERY 2 HOURS PRN, severe pain, Starting on Tue03/25/23 at 1043, IF patient unable to take oral pain medication or pain not controlled with oral analgesics. Hold IV PRN opioid dose for analgesic side effects. Notify provider to assess for uncontrolled pain or analgesic side effects. 1503 ($Given - Provider: Saadia Rodriguez RN)1654 ($Given - Provider: Saadia Rodriguez RN) 0225 ($Given - Provider: Karma Colón RN)0704 ($Given - Provider: Karma Colón RN) hydrOXYzine (ATARAX) tablet 25 mg 25 mg, Oral, EVERY 6 HOURS PRN, other, adjuvant pain, Starting on Tue03/25/23 at 1043 1430 ($Given - Provider: Saadia Rodriguez RN) 0002 ($Given - Provider: Karma Colón RN)0822 (Not Given - Provider: April Alberts RN - Reason: Other - Comment: pt did not want it now) lidocaine (LMX4) cream Topical, EVERY 1 HOUR PRN, pain, with VAD insertion, Starting on Tue03/25/23 at 1043, Apply at least 30 minutes prior to [...] mild pain with VAD insertion, Starting on Tue03/25/23 at 1043, MAX dose 1 mL subcutaneous OR intradermal [...] polyethylene glycol) are not effective., Starting on Tue03/25/23 at 1043, Shake well. Hold for loose stools. methocarbamol (ROBAXIN) tablet 500 mg 500 mg, Oral, 2 TIMES DAILY PRN, muscle spasms, Starting on Tue03/25/23 at 1708 1816 ($Given - Provider: Saadia Rodriguez RN) 0111 ($Given - Provider: Karma Colón RN) naloxone (NARCAN) injection 0.2 mg(Linked Group 2) 0.2 mg, Intravenous, EVERY 2 MIN PRN, opioid reversal, Starting on Tue03/25/23 at 1047, Administer intravenous route when available and notify [...] 2 MIN PRN, opioid reversal, Starting on Tue03/25/23 at 1047, Administer intramuscular if an intravenous route is [...] 2 MIN PRN, opioid reversal, Starting on Tue03/25/23 at 1047, Administer intravenous route when available and notify [...] 2 MIN PRN, opioid reversal, Starting on Tue03/25/23 at 1047, Administer intramuscular if an intravenous route is [...] 6 HOURS PRN, nausea, vomiting, Starting on Tue03/25/23 at 1043, This is Step 1 of nausea and [...] vomiting, Administer over 2-5 Minutes, Starting on Tue03/25/23 at 1043, This is Step 1 of nausea and vomiting management. If nausea not resolved in 15 minutes, go to Step 2 prochlorperazine (COMPAZINE). Irritant. oxyCODONE (ROXICODONE) tablet 10 mg(Linked Group 4) 10 mg, Oral, EVERY 4 HOURS PRN, severe pain, Starting on Tue03/25/23 at 1043, Hold oral PRN dose for analgesic side effects. Notify provider to assess for uncontrolled pain or analgesic side effects. Hold while on IV [employer] or with regular IV opioid dosing. 1325 (See Alternative - Provider: Saadia Rodriguez RN) 0002 ($Given - Provider: Karma Colón RN)0403 ($Given - Provider: Karma Colón RN)0821 (Not Given - Provider: April Alberts RN - Reason: Other - Comment: pt did not want it now)1130 ($Given - Provider: April Alberts RN) oxyCODONE (ROXICODONE) tablet 5 mg(Linked Group 4) 5 mg, Oral, EVERY 4 HOURS PRN, moderate pain, Starting on Tue03/25/23 at 1043, Hold oral PRN dose for analgesic side effects. Notify provider to assess for uncontrolled pain or analgesic side effects. Hold while on IV [employer] or with regular IV opioid dosing. 1325 ($Given - Provider: Saadia Rodriguez RN) 0002 (See Alternative - Provider: Karma Colón RN)0403 (See Alternative - Provider: Karma Colón RN)0821 (See Alternative - Provider: April Alberts RN)1130 (See Alternative - Provider: April Alberts RN) povidone-iodine 10% (17 mL) (BETADINE) in 500 mL saline irrigation (CANCELED) PRN, Starting on Tue03/25/23 at 0833, Intra-procedure 0833 ($Given - Provider: Cj Chne MD) prochlorperazine (COMPAZINE) injection 10 mg(Linked Group 5) 10 mg, Intravenous, EVERY 6 HOURS PRN, nausea, vomiting, Administer over 1-2 Minutes, Starting on Tue03/25/23 at 1043, This is Step 2 of nausea and vomiting management. If nausea not resolved in 15-30 minutes, Notify provider. prochlorperazine (COMPAZINE) tablet 10 mg(Linked Group 5) 10 mg, Oral, EVERY 6 HOURS PRN, nausea, vomiting, Starting on Tue03/25/23 at 1043, This is Step 2 of nausea and vomiting management. If nausea not resolved in 15-30 minutes, Notify provider. sodium chloride (PF) 0.9% PF flush 3 mL 3 mL, Intracatheter, EVERY 1 MIN PRN, line flush, other, to ensure patency or to lock dormant line, Starting on Tue03/25/23 at 1043 sodium chloride 0.9% (bottle) irrigation (CANCELED) PRN, Starting on Tue03/25/23 at 0753, Intra-procedure 0753 ($Given - Provider: Cj Chen MD) sodium chloride 0.9% irrigation (bag) (CANCELED) PRN, Starting on Tue03/25/23 at 0754, Intra-procedure 0754 ($Given - Provider: Cj Chen MD) vancomycin (VANCOCIN) topical powder (CANCELED) PRN, Starting on Tue03/25/23 at 0838, Intra-procedure 0838 ($Given - Provider: Cj Chen MD) Linked Groups Order Group 1: HYDROmorphone (DILAUDID) injection 0.2 mgJump to med 0.2 mg, Intravenous, EVERY 2 HOURS PRN, moderate pain, Starting on Tue03/25/23 at 1043, IF patient unable to take oral pain medication or pain not controlled with oral analgesics. Hold IV PRN opioid dose for analgesic side effects. Notify provider to assess for uncontrolled pain or analgesic side effects. Or HYDROmorphone (DILAUDID) injection 0.4 mgJump to med 0.4 mg, Intravenous, EVERY 2 HOURS PRN, severe pain, Starting on Tue03/25/23 at 1043, IF patient unable to take oral pain medication or pain not controlled with oral analgesics. Hold IV PRN opioid dose for analgesic side effects. Notify provider to assess for uncontrolled pain or analgesic side effects. Group 2: naloxone (NARCAN) injection 0.2 mgJump to med 0.2 mg, Intravenous, EVERY 2 MIN PRN, opioid reversal, Starting on Tue03/25/23 at 1047, Administer intravenous route when available and notify [...] 2 MIN PRN, opioid reversal, Starting on Tue03/25/23 at 1047, Administer intravenous route when available and notify [...] 2 MIN PRN, opioid reversal, Starting on Tue03/25/23 at 1047, Administer intramuscular if an intravenous route is [...] 2 MIN PRN, opioid reversal, Starting on Tue03/25/23 at 1047, Administer intramuscular if an intravenous route is [...] 6 HOURS PRN, nausea, vomiting, Starting on Tue03/25/23 at 1043, This is Step 1 of nausea and [...] vomiting, Administer over 2-5 Minutes, Starting on Tue03/25/23 at 1043, This is Step 1 of nausea and vomiting management. If nausea not resolved in 15 minutes, go to Step 2 prochlorperazine (COMPAZINE). Irritant. Group 4: oxyCODONE (ROXICODONE) tablet 5 mgJump to med 5 mg, Oral, EVERY 4 HOURS PRN, moderate pain, Starting on Tue03/25/23 at 1043, Hold oral PRN dose for analgesic side effects. Notify provider to assess for uncontrolled pain or analgesic side effects. Hold while on IV RESEARCH PROGRAM INTERNSHIP or with regular IV opioid dosing. Or oxyCODONE (ROXICODONE) tablet 10 mgJump to med 10 mg, Oral, EVERY 4 HOURS PRN, severe pain, Starting on Tue03/25/23 at 1043, Hold oral PRN dose for analgesic side effects. Notify provider to assess for uncontrolled pain or analgesic side effects. Hold while on IV RESEARCH PROGRAM INTERNSHIP or with regular IV opioid dosing. Group 5: prochlorperazine (COMPAZINE) injection 10 mgJump to med 10 mg, Intravenous, EVERY 6 HOURS PRN, nausea, vomiting, Administer over 1-2 Minutes, Starting on Tue03/25/23 at 1043, This is Step 2 of nausea and vomiting management. If nausea not resolved in 15-30 minutes, Notify provider. Or prochlorperazine (COMPAZINE) tablet 10 mgJump to med 10 mg, Oral, EVERY 6 HOURS PRN, nausea, vomiting, Starting on Tue03/25/23 at 1043, This is Step 2 of nausea and vomiting management. If nausea not resolved in 15- 30 minutes, Notify provider. documented in this encounter Additional Health Concerns Problem Noted Date Diagnosed Date Total Joint Replacement Hip Pathway 03/15/2023 documented as of this encounter Care Teams Sportspersons Relationship Specialty Start Date End Date Case Gao [address] [place] [address] PCP - General Family Medicine 01/25/21 documented as of this encounter
--- OUTSIDE RECORDS SUMMARY | 2023-09-21 15:07 | XMS_ITS | Encounter Summary ---
Author Name Unknown Organization [place] Address [address] [place] [address] Care Team Providers Care Rn Ccu Name Role Phone Case Gao Sierra Primary Care Provider Reason for Visit * Auth/Cert (Routine) Specialty Diagnoses / Procedures Referred By Konstantin katz Referred To Contact Surgery Diagnoses Primary osteoarthritis of left hip Primary osteoarthritis of left hip [M16.12] Procedures CO TOTAL HIP ARTHROPLASTY left total hip arthroplasty Per[facility] Services [address] [place] [address] Referral ID Status Reason Start Date Expiration Date Visits Re quested Visits Authorized [id number] 1 1 Encounter Details Date Type Department Care Team (Late st Contact Info) Description 03/25/2023 7:30 AM CDT - 03/25/2023 9:05 AM CDT Surgery [facility] PeriOP Services [address] [place] [address] Cj Chen MD [facility] [address] [facility] [address] [place] [address] left total hip arthroplasty with removal of hardware Surgery Details Date/Time Status Location OR Service Patient Class Case Class Case Type Trauma Case? 03/25/23 7:30 AM Posted OR OR M 41 Orthopedics Same Day Surgery Panel 1 Procedure LRB Anes Op Region Wound Class Comments left total hip arthroplasty with removal of hardware Left Choice Hip I-Clean Surgeon Surgeon Role Service Panel Cj Chen MD Primary Orthopedics 1 Vira Fernandes PA-C Assisting Personalized Living Manager Authorizat ion 1 Case Notes DANTE REVIEWED Special Needs *bmi(7/17)=30.79 htn, seizure. Scheduled Left, patient confirmed Left is correct. documented in this encounter Social History Tobacco [...] Sign Reading Time Taken Comments Blood Pressure 142/74 03/25/2023 5:59 AM CDT Pulse 81 03/25/2023 5:59 AM CDT Temperature 36.6 ??C (97.8 ??F) 03/25/2023 5:59 AM CD T Respiratory Rate 16 03/25/2023 5:59 AM CDT Oxygen Saturation 100% 03/25/2023 5:59 AM CDT Inhaled Oxygen Concentration - - [...] - 03/26/2023 10:14 AM CDT Orthopedic Surgery Mroa Avalos 03/26/2023 Admit Date: 03/25/2023 POD 1 [...] results for input(s): POTASSIUM in the last 16706 hours. Recent Labs Lab Test 03/26/23 0936 HGB 10.2* Recent Labs Lab Test 03/26/23 0936 03/25/23 1101 INR 1.08 1.02 No results for input(s): PLT in the last 68854 hours. A/P 1. S/p left MICHELLE (PL [...] Evaluation Time OT Eval, Low Complexity Minutes (31246) 10 Therapy Certification Medical Diagnosis L MICHELLE [...] Management Self-Care/Home Mgmt/ADL, Compensatory, Meal Prep Minutes (82175) 25 Symptoms Noted During/After Treatment (Meal Preparation/Planning Training) fatigue Treatment Detail/Skilled Intervention Educated patient on AE for dressing. Patient dons lower body clothing with MOD I with exception of shoes. Patient too tired to try. Issued elastic laces and patient verbalizes technique to don/doff. Therapeutic Activities Therapeutic Activity Minutes (14389) 15 Symptoms noted during/after treatment fatigue Treatment [...] of timed and untimed services) 50 M [facility] OUTPATIENT OCCUPATIONAL THERAPY EVALUATION PLAN OF TREATMENT FOR OUTPATIENT REHABILITATION (COMPLETE FOR INITIAL CLAIMS ONLY) Patient's Last Name, First Name, M.I. Date of : 1960 Mora Avalos Provider's Name [facility] Onset Date: 03/25/23 Start of Care Date: 03/26/23 Type: ___PT _X_OT ___SLP Medical Diagnosis: L MICHELLE OT Diagnosis: Decreased ADL Visits from SOC: 1 _ Plan of Treatment/Functional Goals Planned Interventions: ADL retraining Goals: See Occupational Therapy Goals on Care Plan in [facility] electronic health record. Therapy Frequency: One time eval and treatment Predicted Duration of Therapy Intervention: 03/26/23 _ I CERTIFY THE NEED FOR THESE SERVICES FURNISHED UNDER THIS PLAN OF TREATMENT AND WHILE UNDER MY CARE . Physician Signature Date X Certification date from: 03/26/23, Certification date to: 03/26/23 Referring Physician: Cj Chen Initial Assessment See Occupational Therapy evaluation dated 03/26/23 in [facility] electronic health record. Associated attestation - Cj Chen MD - 03/29/2023 10:14 AM CDT Physician Attestation I agree with the information in this note. Cj Chen MD, * Karma Colón RN - 03/26/2023 6:14 AM CDT Date/Time 03/25-03/26 3912-8144 AM Patient vital signs are at baseline: [...] Ruben Avilez - 03/25/2023 6:12 AM CDT ROLLER INSPECTOR medications completed by Medication Scribe day of [...] Medication Sig Last Dose Taking? 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 Date of : 1960 Mora Avalos Provider's Name [facility] Date: 03/25/23 Start of Care [...] review and certification of the therapy plan). UITING ADMINISTRATOR Associated attestation - Cj Chen MD - 08/12/2023 8:23 AM RECRUITING ADMINISTRATOR Agree with note * Pharmacy-Anticoagulation Service - Rohini Chua [facility] - 03/25/2023 11:23 AM CDT Clinical Pharmacy [...] Chen MD - 03/25/2023 11:23 AM CDT [facility] Brief Operative Note Pre-operative diagnosis: Primary osteoarthritis [...] Implant Name Type Inv. Item Serial No. Analytical Manager Lot No. LRB No. Used Action 6.5 mm Cannulated Screws, 16mm thread length 80mm JustRight Surgical 24 JAN 2021 Left 3 Explanted Titanium Washer, 13.0 mm SYNTHES 24 JAN 2021 [id number] Left 3 Explanted TRIDENT II TRITANIUM CLUSTERHOLE 52E - [id number] Total Joint Component/Insert TRIDENT II TRITANIUMCLUSTERHOLE 52E [employer] [id number] Left 1 Implanted INSERT JONATAN 36MM 0DEG X3 723-00-36E - [id number] Total Joint Component/Insert INSERT JONATAN 36MM 0DEG X3 723-00-36E [employer]W Taltopia [id number] Left 1 Implanted IMP STEM FEMORAL HIP STRK ACCOLADE II 132DEG SZ 5 1231-6445 - [id number] Total Joint Component/Insert IMP STEM FEMORAL HIP STRK ACCOLADE II 132DEG SZ 5 3898- 1123 [employer]W Taltopia [id number] Left 1 Implanted IMP HEAD FEMORAL STRK BIOLOX DELTA CERAMIC 36MM +2.5MM - [id number] Total Joint Component/Insert IMP HEAD FEMORAL STRK BIOLOX DELTA CERAMIC 36MM +2.5MM MATTHEW Taltopia [id number] Left 1 Implanted * Op Note - Cj Chen MD - 03/25/2023 9:42 AM CDT Procedure Date: 03/25/2023 PREOPERATIVE DIAGNOSIS: Avascular necrosis, status post pinning of left femoral neck fracture. POSTOPERATIVE DIAGNOSIS: Avascular necrosis, status post pinning of left femoral neck fracture. PROCEDURES: 1. Left hip removal of hardware. 2. Left total hip arthroplasty. SURGEON: Cj Chen MD. MANAGER DISTRIBUTION CENTER: Vira Fernandes PA-C. ANESTHESIA: Spinal with sedation. [...] along the calcar. Trial reduction restored appropriate worship of leg length, offset and stability. The size 5 Accolade II 132-degree neck angle hip stem wasopened and impacted, matching the patient's miami femoral version. Multiple trial reductions were p [...] the postanesthesia care unit in stable condition. Vria Fernandes PA-C, was present and scrubbed throughout the case, and her assistance was critical for patient positioning and assistance with prepping, draping, soft tissue retraction, hip mobilization, wound closure and dressing application. Cj Chen MD MT: dc Name: MORA AVALOS: -71 Account: [id number] : 1960 Procedure Date: 03/25/2023 Document: [id number] documented in this encounter Plan of Treatment [...] Primary osteoarthritis of left hip Case Notes DATNE REVIEWED Special Needs *bmi(03/21)=30.79 htn, seizure. Scheduled Left, patient confirmed Left is correct. documented in this encounter Results * INR (03/26/2023 9:36 AM CDT) INR 1.08 0.85 - 1.15 03/26/2023 10:02 AM CDT LABORATORY Blood STRUCTURE OF LEFT UPPER LIMB / Unknown Venipuncture / Unknown 03/26/2023 9:36 AM CDT 03/26/2023 9:49 AM CDT Cj Chen MD LAB - BLOOD ORDERABL ES LABORATORY [facility] [address] 1[address] floor, [address] [place] [address], [facility] [phone] * (ABNORMAL) Hemoglobin (03/26/2023 9:36 AM CDT) Hemoglobin 10.2(L) 11.7 - 15.7 g/dL 03/26/2023 9:52 AM CDT LABORATORY Blood STRUCTURE OF LEFT UPPER LIMB / Unknown Venipuncture / Unknown 03/26/2023 9:36 AM CDT 03/26/2023 9:49 AM CDT Cj Chen MD LAB - BLOOD ORDERABL ES LABORATORY [facility] [address] 1[address] floor, [address] [place] [address], [facility] [phone] * (ABNORMAL) Glucose (03/26/2023 9:36 AM CDT) Glucose 123(H) 70 - 99 mg/dL 03/26/2023 10:23 AM CDT LABORATORY Patient Fasting > 8hrs? No 03/26/2023 10:23 AM CDT LABORATORY Blood STRUCTURE OF LEFT UPPER LIMB / Unknown Venipuncture / Unknown 03/26/2023 9:36 AM CDT 03/26/2023 9:49 AM CDT Cj Chen MD LAB - BLOOD ORDERABL ES LABORATORY [facility] [address] floor, [address] [place] [address], [facility] [phone] * INR (03/25/2023 11:01 AM CDT) INR 1.02 0.85 - 1.15 03/25/2023 11:17 AM CDT LABORATORY Blood STRUCTURE OF LEFT UPPER LIMB / Unknown Venipuncture / Unknown 03/25/2023 11:01 AM CDT 03/25/2023 11:07 AM CDT Cj Chen MD LAB - BLOOD ORDERABL ES LABORATORY [facility] [address] 1[address] floor, [address] [place] [address], [facility] [phone] * XR Pelvis w Hip Port Left 1 View (03/25/2023 9:54 AM CDT) Anatomical Region Laterality Modality Abdomen/Pelvis Left Digital Radiogra phy Impressions 03/25/2023 10:19 AM CDT IMPRESSION: Removal of hardware and left total hip arthroplasty. Negative for postoperative purposes. HUMBLE SANTIAGO DO SYSTEM ID: [id number] Narrative 03/25/2023 10:19 AM CDT EXAM: XR [...] postoperative purposes. HUMBLE SANTIAGO DO SYSTEM ID: [id number] Cj Chen MD IMG DIAGNOSTIC IMAGI NG ORDERABLES documented in this encounter Visit Diagnoses Diagnosis Status post total hip replacement, left Primary osteoarthritis of left hip Primary localized osteoarthrosis, pelvic region and thigh documented in this encounter Admitting Diagnoses Diagnosis [...] analgesic side effects. Hold while on IV MANAGER SIGN or with regular IV opioid dosing. $Given [...] analgesic side effects. Hold while on IV MANAGER SIGN or with regular IV opioid dosing. $Given 03/25/2023 1:25 PM CDT 5 mg polyethylene glycol (MIRALAX) Packet 17 g 17 g, Oral, DAILY, First dose on 03/26/23 at 0900, To prevent constipation. Mixed prescribed [...] bowel prep regimen or bowel clean out. povidone-iodine 10% (17 mL) (BETADINE) in 500 mL saline irrigation PRN, Starting on Tue03/25/23 at 0833, Intra-procedure $Given 03/25/2023 8:33 AM CDT 517 ml given Operative Site/Surgical Site prochlorperazine (COMPAZINE) [...] not resolved in 15-30 minutes, Notify provider. ropivacaine (NAROPIN) 5 MG/ML 300 mg, EPINEPHrine (ADRENALIN) 0.6 mg in sodium chloride 0.9 % 100 mL (ORTHO SANDRO CUSTOM DOSE) INTRA-ARTICULAR, OPERATIONS PROFESSIONAL TO O.R., Starting on Tue03/25/23 at 0724, For 1 dose, NOT FOR IV INJECTION. Used by provider at the end of surgery. Reason for custom entry: Aspirin allergy - anaphylaxis $Given 03/25/2023 8:38 AM CDT Operative Site/Surgical Site senna-docusate (SENOKOT-S/PERICOLACE) 8.6-50 MG per tablet 1 [...] at 1043 sodium chloride 0.9% (bottle) irrigation PRN, Starting on Tue03/25/23 at 0753, Intra-procedure $Given 03/25/2023 7:53 AM CDT 500 mLs Operative Site/Surgi katie Site sodium chloride 0.9% irrigation (bag) PRN, Starting on Tue03/25/23 at 0754, Intra-procedure $Given 03/25/2023 7:54 AM CDT 1,000 mLs Operative Site/Surgi katie Site tranexamic acid (LYSTEDA) tablet 1,950 mg 1,950 mg, Oral, ONCE, On Tue03/25/23 at 0630, For 1 dose, Administer with a sip of water in PRE OP area 90 minutes PRIOR to leaving Pre-op area., Pre-procedure $Given 03/25/2023 6:23 AM CDT 1,950 mg vancomycin (VANCOCIN) topical powder PRN, Starting on Tue03/25/23 at 0838, Intra-procedure $Given 03/25/2023 8:38 AM CDT 1 g Operative Site/Surgi katie Site venlafaxine (EFFEXOR) tablet 225 mg 225 [...] 2 minutes. 1815 ($Given - Provider: Saadia Rodriugez RN) levETIRAcetam (KEPPRA) tablet 1,000 mg 1,000 [...] mL (ORTHO SANDRO CUSTOM DOSE) (COMPLETED) INTRA-ARTICULAR, OPERATIONS PROFESSIONAL TO O.R., Starting on Tue03/25/23 at 0724, [...] Saadia Rodriguez RN)1654 (See Alternative - Provider: Saadia Rodriguez RN) 0225 (See Alternative - Provider: [...] analgesic side effects. Hold while on IV MANAGER SIGN or with regular IV opioid dosing. 1325 [...] analgesic side effects. Hold while on IV MANAGER SIGN or with regular IV opioid dosing. 1325 [...] 0833, Intra-procedure 0833 ($Given - Provider: Cj Chen MD) prochlorperazine (COMPAZINE) injection 10 mg(Linked Group [...] analgesic side effects. Hold while on IV MANAGER SIGN or with regular IV opioid dosing. Or oxyCODONE (ROXICODONE) tablet 10 mgJump to med 10 mg, Oral, EVERY 4 HOURS PRN, severe pain, Starting on Tue03/25/23 at 1043, Hold oral PRN dose for analgesic side effects. Notify provider to assess for uncontrolled pain or analgesic side effects. Hold while on IV MANAGER SIGN or with regular IV opioid dosing. Group [...] documented as of this encounter Care Teams Rn Ccu Relationship Specialty Start Date End Date Case Gao [address] [place] [address] PCP - General Family Medicine 01/25/21 documented as of this encounter
--- OUTSIDE RECORDS SUMMARY | 2023-09-21 15:07 | XMS_ITS | Encounter Summary ---
Author Name Unknown Organization [facility] Address [address] [place] [address] Care Team Providers Care Lan Manager Name Role Phone Case Gao Primary Care Provider [phone] Encounter Details Date Type Department Care Team (Latest Contact Info) Description 03/25/2023 Travel Social History Tobacco Use Types Packs/Day [...] AM CDT documented as of this encounter Plan [...] documented as of this encounter Care Teams Lan Manager Relationship Specialty Start Date End Date Case Gao [address] [place] [address] PCP - General Family Medicine 01/25/21 documented as of this encounter
--- OUTSIDE RECORDS SUMMARY | 2023-09-21 15:07 | XMS_ITS | Encounter Summary ---
Author Name Unknown Organization [facility] Address [address] [place] [address] Care Team Providers Care Rope Tier Name Role Phone Case Gao Sierra Primary Care Provider [phone] Reason for Visit * Auth/Cert (Routine) Specialty Diagnoses / Procedures Referred By Konstantin katz Referred To Contact Surgery Diagnoses Primary osteoarthritis of left hip Primary osteoarthritis of left hip [M16.12] Procedures [place] TOTAL HIP ARTHROPLASTY left total hip arthroplasty Periop Services [address] [place] [address] Referral ID Status Reason Start Date Expiration Date Visits Re quested Visits Authorized 1 1 Encounter Details Date Type Department Care Team (Late st Contact Info) Description 03/25/2023 7:35 AM CDT Anesthesia Event [facility] Services [address] [place] [address] Trini Munoz [facility] [address] [facility] [place] [address] Anesthesia Record Procedure Summary Procedure Name Responsible Anesthesiologist Anesthesia Start Time Anesthesia Stop Time left total hip arthroplasty with removal of hardware (Left: Hip) Trini Munoz 03/25/23 0735 03/25/23 0904 Events Date Time Event Comment 03/25/2023 0708 0735 An Start 0736 An Start Data 0736 AN REASSESS I attest that I have identified and re-evaluated the patient immediately before the induction of anesthesia and I am satisfied that the anesthetic plan is suitable for the patient's condition and procedure. The first vital signs recorded are pre- induction. Melissa Molina APRN FISH TENDER 0736 Anesthesia Ready for Procedu re 0754 AN INCISION 0902 an stop data 0904 An Stop Electronically signed by Melissa Molina APRN CRNA on March 25, 2023 9:04 AM Meds Name Total midazolam 1 mg/mL 4 mg fentaNYL 50 mcg/mL 100 mcg propofol drip mcg/kg/min 463.09 mg ondansetron 2 mg/mL 4 mg ceFAZolin Sodium (ANCEF) injection 2 g 2 g phenylephrine 0.2 mg/mL (mcg/kg/min) dri p 2.49 mg 0.75% Hyperbaric Bupivacaine (Intratheca l) 1.8 mL LR 1,400 mL * Agents Name NO HELIOX O2 N2O Air Exp Sevoflurane Exp Isoflurane Exp Desflurane Exp N2O O2 Delivery Device Ins Sevoflurane Ins Isoflurane Ins Desflurane O2 Auxiliary * Blood No blood administrations on file. Lines, Drains, and Airways Type Details Placement Removal Incision/Surgical Site 01/25/21; 1325; L eft; Hip; pepe, aquacell; 04/08/23; 0912 01/25/21 1325 by Radha Cabrales RN 04/08/23 0912 by Ana Mccracken RN Peripheral IV 03/25/23; 0610; 20 G ; Right; Wrist; Tolerated well 03/25/23 0610 by Dana Rizzo RN 03/26/23 1302 by Inpatient, Nurse documented in this encounter Social History Tobacco [...] AM CDT documented as of this encounter OR Notes * Anesthesia Postprocedure Evaluation - Trini Munoz - 03/25/2023 12:39 PM CDT Patient: Mora Galeas Procedure: Procedure(s): left total hip arthroplasty with removal of hardware Anesthesia Type: Spinal Note: Disposition: Outpatient Postop Pain Control: Uneventful Sign Out: Well controlled pain PONV: No Neuro/Psych: Uneventful Sign Out: Acceptable/Baseline neuro status Airway/Respiratory: Uneventful Sign Out: Acceptable/Baseline resp. status CV/Hemodynamics: Uneventful Sign Out: Acceptable CV status Other NRE: DID A NON-ROUTINE EVENT OCCUR? No Last vitals: Vitals Value Taken Time BP 119/56 03/25/23 1015 Temp 36.9 ??C (98.4 ??F) 03/25/23 1015 Pulse 94 03/25/23 1015 Resp 17 03/25/23 1015 SpO2 98 % 03/25/23 1020 Electronically Signed By: Trini Munoz March 25, 2023 12:39 PM * Anesthesia Procedure Notes - Trini Munoz - 03/25/2023 12:38 PM CDTAssociated Order(s): Spinal Block Intrathecal injection Procedure Note Pre-Procedure Staff - Anesthesiologist: Trini Munoz Performed By: anesthesiologist Location: OR Pre-Anesthestic Checklist: patient identified, IV checked, risks and benefits discussed, informed consent, monitors and equipment checked and pre-op evaluation Timeout: Correct Patient: Yes Correct Procedure: Yes Correct Site: Yes Correct Position: Yes Procedure Documentation Procedure: intrathecal injection Patient Position: sitting Patient Prep/Sterile Barriers: sterile gloves, mask, patient draped Skin prep: Betadine Insertion Site: L3-4. (midline approach). Needle Gauge: 24. Needle Length (Inches): 3.5 Spinal Needle Type: Betsy-Sidney Introducer used Introducer: 20 G # of attempts: 1 and # of redirects: 0 Assessment/Narrative Paresthesias: No. CSF fluid: clear. Medication(s) Administered 0.75% Hyperbaric Bupivacaine (Intrathecal) - Intrathecal 1.8 mL - 03/25/2023 7:35:00 AM Comments: EZ injection of 0.75% Marcaine - no paresthesias on injection or s/s IV. Immediately to supine. Pt mildly sedated, but communicative throughout procedure. Pt tolerated well. No complications. [facility] ([facility]) ONLY: Pain Team Contact information: please page the Pain Team Via [employer]Search Pain. During daytime hours, please page the attending first. At night please page the resident first. * Anesthesia Preprocedure Evaluation - Trini Munoz - 03/25/2023 7:07 AM CDT Anesthesia Pre-Procedure Evaluation Patient: Mora Galeas : 1960 Procedure : Procedure(s): left total hip arthroplasty Past Medical History: Diagnosis Date ??? ADHD (attention deficit hyperactivity disorder) ??? Anemia ??? Anxiety and depression ??? Hypertension ??? RA (rheumatoid arthritis) (H) ??? Rheumatoid arthritis (H) ??? Seizure (H) ??? Thoracic compression fracture (H) multiple thoracic and lumbar compression fractures Past Surgical History: Procedure Laterality Date ??? CARPAL TUNNEL RELEASE RT/LT Bilateral ??? 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 OPEN REDUCTION INTERNAL FIXATION HIP NAILING Left 01/25/2021 Procedure: Operative fixation of left femoral neck fracture with cannulated screws; Surgeon: Cj Chen MD; Location: [facility] OR ??? ORTHOPEDIC SURGERY right middle finger surgery ??? TOTAL KNEE ARTHROPLASTY Left 04/2021 ??? TUBAL LIGATION Allergies Allergen Reactions ??? Aspirin Anaphylaxis Social History Tobacco Use ??? Smoking status: Never ??? Smokeless tobacco: Never Substance Use Topics ??? Alcohol use: Yes Comment: 2 beers nightly Wt Readings from Last 1 Encounters: 03/25/23 69.9 kg (154 lb) Anesthesia Evaluation ROS/MED HX ENT/Pulmonary: (-) asthma, COPD and sleep apnea Neurologic: (+) seizures, Cardiovascular: (+) hypertension----- METS/Exercise Tolerance: Hematologic: (+) anemia, Musculoskeletal: (+) arthritis, GI/Hepatic: Renal/Genitourinary: Endo: (+) Obesity, Psychiatric/Substance Use: (+) psychiatric history anxiety and depression (ADHD) Infectious Disease: Malignancy: Other: Physical Exam Airway Mallampati: II TM distance: > 3 FB Neck ROM: full Respiratory Devices and Support Dental Comment: Caps/ Crowns Cardiovascular cardiovascular exam normal Pulmonary pulmonary exam normal OUTSIDE LABS: CBC: No results found for: WBC, HGB, HCT, PLT BMP: No results found for: NA, POTASSIUM, CHLORIDE, CO2, BUN, CR, GLC COAGS: No results found for: PTT, INR, FIBR POC: No results found for: BGM, HCG, HCGS HEPATIC: No results found for: ALBUMIN, PROTTOTAL, ALT, AST, GGT, ALKPHOS, BILITOTAL, BILIDIRECT, PRISCILA OTHER: No results found for: PH, LACT, A1C, BUBBA, PHOS, MAG, LIPASE, AMYLASE, TSH, T4, T3, CRP, SED Anesthesia Plan ASA Status: 2 Anesthesia Type: Spinal. Consents Anesthesia Plan(s) and associated risks, benefits, and realistic alternatives discussed. Questions answered and patient/regional sales representative(s) expressed understanding. - Discussed: - Discussed with: Patient Postoperative Care PONV prophylaxis: Ondansetron (or other 5HT-3) Comments: Trini Munoz documented in this encounter Miscellaneous Notes * Anesthesia Care Transfer Note - Nikia Chacon APRN CRNA - 03/25/2023 9:14 AM CDT Patient: Mora Galeas Procedure: Procedure(s): left total hip arthroplasty with removal of hardware Diagnosis: Primary osteoarthritis of left hip [M16.12] Diagnosis Additional Information: No value filed. Anesthesia Type: Spinal Note: Oropharynx: oropharynx clear of all foreign objects Level of Consciousness: awake Oxygen Supplementation: room air Independent Airway: airway [...] understanding Vitals: Vitals Value Taken Time BP Temp Pulse Resp SpO2 Electronically Signed By: Nikia Chacon APRN CRNA March 25, 2023 9:14 AM documented in this encounter Plan of Treatment Not on file documented as of this encounter Goals Goal Patient Goal Type Associated Problems Recent Progress Patient-Stated? Author Total Joint Replacement Hip Pathway Care Plan Total Joint Replacement Hip Pathway No Octavia Beauchamp documented as of this encounter Procedures Procedure Name Priority Date/Time Associated Diagnosis Comments ANE SPINAL BLOCK FORM Routine 03/25/2023 12:38 PM CDT documented in this encounter Results * Spinal Block (03/25/2023 12:38 PM CDT) Narrative Trini Munoz - 03/25/2023 12:38 PM CDT Trini Munoz ? 03/25/2023 12:38 PM Intrathecal injection Procedure Note Pre-Procedure Staff - ? Anesthesiologist: ??Trini Munoz ? Performed By: anesthesiologist ? Location: OR ? Pre-Anesthestic Checklist: patient identified, IV checked, risks and benefits discussed, informed consent, monitors and equipment checked and pre-op evaluation Timeout: ? Correct Patient: Yes ? Correct Procedure: Yes ? Correct Site: Yes ? Correct Position: Yes Procedure Documentation Procedure: intrathecal injection ? Patient Position: sitting ? Patient Prep/Sterile Barriers: sterile gloves, mask, patient draped ? Skin prep: Betadine ? Insertion Site: L3-4. (midline approach). ? Needle Gauge: 24. ? Needle Length (Inches): 3.5 ? Spinal Needle Type: Betsy-Sidney ? Introducer used ? Introducer: 20 G ? # of attempts: 1 and ??# of redirects: ??0 Assessment/Narrative ? Paresthesias: No. ? CSF fluid: clear. Medication(s) Administered 0.75% Hyperbaric Bupivacaine (Intrathecal) - Intrathecal 1.8 mL - 03/25/2023 7:35:00 AM Comments: ??EZ injection of 0.75% Marcaine - no paresthesias on injection or s/s IV. Immediately to supine. Pt mildly sedated, but communicative throughout procedure. Pt tolerated well. ?? No complications. [facility] ([facility]) ONLY: ?? Pain Team Contact information: please page the Pain Team Via [employer]. Search Pain. During daytime hours, please page the attending first. At night please page the resident first. Trini Munoz [place] ANESTHESIA documented in this encounter Visit Diagnoses Not on filedocumented in this encounter Administered Medications Inactive Administered Medications - up to 3 most recent administrations Medication Order MAR Action Action Date Dose Rate Site bupivacaine 0.75% in dextrose 8.25% (intrathecal) (SENSORCAINE) 0.75-8.25 % injection Intrathecal, Starting on Tue03/25/23 at 0735, Anesthesia Intra-op $Given 03/25/2023 7:35 AM CDT 1.8 mLs ceFAZolin Sodium (ANCEF) injection 2 g Routine, 2 g, Intravenous, PRE-OP/PRE-PROCEDURE, Starting on Tue03/25/23 at 0605, For 1 dose, Give first dose within 1 hour PRIOR to incision. If patient weight is greater than or equal to 120 kg increase dose to 3 g., Indications: Perioperative Pharmacoprophylaxis, Pre-procedure $Given 03/25/2023 7:32 AM CDT 2 g fentaNYL (PF) (SUBLIMAZE) injection Intravenous, PRN, Administer over 3-5 Minutes, Starting on Tue03/25/23 at 0736, Anesthesia Intra-op $Given 03/25/2023 7:54 AM CDT 50 mcg $Given 03/25/2023 7:36 AM CDT 50 mcg lactated ringers infusion Intravenous, CONTINUOUS PRN, Anesthesia Intra-op, Starting on Tue03/25/23 at 0736, Until Tue03/25/23 at 0904 $New Bag 03/25/2023 7:36 AM CDT midazolam (VERSED) injection Intravenous, Administer over 2 Minutes, PRN, Starting on Tue03/25/23 at 0735, Anesthesia Intra-op $Given 03/25/2023 8:48 AM CDT 1 mg $Given 03/25/2023 7:55 AM CDT 1 mg $Given 03/25/2023 7:35 AM CDT 2 mg ondansetron (ZOFRAN) injection Intravenous, PRN, Administer over 2-5 Minutes, Starting on Tue03/25/23 at 0842, Anesthesia Intra-op $Given 03/25/2023 8:42 AM CDT 4 mg phenylephrine 0.2 mg/mL (mcg/kg/min) drip Intravenous, CONTINUOUS PRN, Starting on Tue03/25/23 at 0745, Anesthesia Intra-op Rate/Dose Change 03/25/2023 8:34 AM CDT 0.5 mcg/kg/min 10.485 mL/hr Rate/Dose Change 03/25/2023 7:57 AM CDT 0.5 mcg/kg/min 10. 485 mL/hr $New Bag 03/25/2023 7:45 AM CDT 0.3 mcg/kg/min 6.291 mL/ hr propofol (DIPRIVAN) infusion Intravenous, CONTINUOUS PRN, Starting on Tue03/25/23 at 0750, Anesthesia Intra-op Rate/Dose Change 03/25/2023 8:42 AM CDT 75 mcg/kg/min 31.455 mL/hr Rate/Dose Change 03/25/2023 8:34 AM CDT 100 mcg/kg/min 41. 94 mL/hr $New Bag 03/25/2023 7:50 AM CDT 100 mcg/kg/min 41.94 mL/ hr documented in this encounter Additional Health Concerns Problem Noted Date Diagnosed Date Total Joint Replacement Hip Pathway 03/15/2023 documented as of this encounter Care Teams Rope Tier Relationship Specialty Start Date End Date Case Gao [address] [place] [address] PCP - General Family Medicine 01/25/21 documented as of this encounter
--- OUTSIDE RECORDS SUMMARY | 2023-09-21 15:07 | XMS_ITS | Encounter Summary ---
Author Name Unknown Organization [facility] Address [address] [place] [address]. [place] [address] Care Team Providers Care Glass Finisher Name Role Phone Case Gao Primary Care Provider [phone] Encounter Details Date Type Department Care Team ([facility] Contact Info) Description 03/15/2023 Medical Correspondence [facility] Info Mgmt [facility] [address] [place] [phone] Outside, Provider Social History Tobacco Use Types Packs/Day Years Used Date Smoking Tobacco: Never Smokeless Tobacco: Never Alcohol Use Standard Drinks/Week Comments Never 0 (1 standard drink = 0.6 oz pur e alcohol) AUDIT-C Answer Date Recorded Q1: How often [...] documented as of this encounter Care Teams Glass Finisher Relationship Specialty Start Date End Date Case [place] [address] [place] [address] PCP - General Family Medicine 01/25/21 documented as of this encounter
== END 2023-09-21 15:03 | disposition home or self-care (01) ==
LOC: WOUND 15:02
PROVIDERS: PCP Family Medicine; Visit Provider Surgery
DX: I87.2 Venous insufficiency (chronic) (peripheral) (principal); L97.815 Non-pressure chronic ulcer of other part of right lower leg with muscle involvement without evidence of necrosis; Z79.60 Long term (current) use of unspecified immunomodulators and immunosuppressants
CPT/HCPCS: G0463

== ENCOUNTER 2023-09-28 14:17 | Outpatient (CLI) | payer BC, SELFPAY ==
--- OUTSIDE RECORDS SUMMARY | 2023-09-28 14:19 | XMS_ITS | Clinical Summary ---
Author Name Unknown Organization [facility] Address [place], [place] [address] Care Team Providers Care Linseed Oil Boiler Name Role Phone Case Gao MD Primary [...] shoulder pain 04/21/2009 1 Bulimia Nervosa in assisted remission, per patient report. 10/14/2008 01/27/2021 Obesity, unspecified 11/26/2006 014 Encounters Date Type Department Care Team Description 07/18/2023 Refill [facility] [address] [place] [address] Case Gao MD Refill Request (venlafaxine (EFFEXOR) 75 mg tablet/) 07/15/2023 Telephone [facility] [address] [place] [address] Case Gao MD Medication Management (venlafaxine (EFFEXOR) 75 mg tablet) 07/11/2023 8:00 AM CHOKER SETTER Office Visit [facility] [address] [place] [address] Case Gao MD Leg Pain/problem (Right lower leg wound, hit on wood wishing well, 2 weeks ago) 07/11/2023 Refill [facility] [address] [place] [address] Case Gao MD Refill Request (Venlafaxine) 07/11/2023 Telephone [facility] [address] [place] [address] 1, [facility] Anticoagulation (BPA trigger) [...] Comments Blood Pressure 111/73 07/11/2023 7:54 AM CHOKER SETTER Pulse 89 07/11/2023 7:54 AM CHOKER SETTER Temperature 36.7 ??C (98.1 ??F) 04/13/2023 7:48 AM CD T Respiratory Rate 16 02/27/2022 11:58 AM CDT Oxygen Saturation 97% 07/11/2023 7:54 AM CHOKER SETTER Inhaled Oxygen Concentration - - Weight 86.6 kg (191 lb) 07/11/2023 7:54 AM CHOKER SETTER Height 169.4 cm (5' 6.69) 03/21/2023 9:18 [...] 5:55 PM 06/24/2012 4:41 PM Care Teams Linseed Oil Boiler Relationship Specialty Start Date End Date Case Gao MD [address] [place] [address] PCP - General 11/28/06
--- OUTSIDE RECORDS SUMMARY | 2023-09-28 14:19 | XMS_ITS | Encounter Summary ---
Author Name Unknown Organization [facility] [employer] [facility] Address [address] [address] Phone Care Team Providers Care Electrical Systems Designer Name Role Phone Unavailable Primary Care Provider Unavailabl e Reason for Visit * Reason Comments Seizure- Prior Hx Of Encounter Details Date Type Department Care Team ([facility] st Contact Info) Description 01/12/2023 1:37 AM CDT - 01/12/2023 3:[address] [facility] Emergency Department [address] [place] [id number] Trent Augustine MD [address] [place] [id number] Status epilepticus (HCC) (Primary Dx); Acute respiratory [...] [facility] - 01/12/2023 2:38 AM CDT [employer] called with a no go on flight , will check with [facility] * [facility] - 01/12/2023 2:30 AM CDT Called [employer] to see check flight status. Will call back with go or no go * [facility] - 01/12/2023 2:23 AM CDT [facility], connected Dr. Augustine to Dr. Gilliland * Trent Augustine MD - 01/12/2023 1:56 AM CDTAssociated Order(s): Intubation; Critical Care Post-Procedure Diagnose(s): Status epilepticus (HCC); Acute respiratory failure with hypoxia (HCC) [facility] Emergency Physician Note Date: 01/12/23 Patient [...] sugar was normal. Throughout the transport from [facility] where she is staying, she has slowly [...] time ingestions of acetaminophen is available in [employer]. SALICYLATE - Normal ALCOHOL - Normal MAGNESIUM - Normal PROTIME - Normal Narrative: Suggested therapeutic INR ranges for oral anticoagulant therapy: Category INR Value Prophylaxis 2.0-3.0 Treat Thrombosis or Embolism 2.0-3.0 Prosthetic Heart Valve 2.5-3.5 C-REACTIVE PROTEIN - Normal LEVETIRACETAM ([facility] ONLY) URINE DRUG SCREEN URINALYSIS, REFLEX TO [...] or life-threatening deterioration of the following conditions: MANAGER PAID failure or compromise and respiratory failure Critical [...] the patient. Simultaneously, we reached out to [facility] for transfer to their ICU for status epilepticus as they have in- house continuous EEG capability and neurology coverage. Ultimately I intubated the patient with ketamine and succinylcholine, ketamine for his antiepileptic effect and succinylcholine to preserve her neurologic examination. The intubation was uncomplicated and tolerated well. I spoke with Dr. Gilliland, mortgage sales manager at [facility], who accepts the patient for transfer to [...] intracranial hemorrhage. I have low concern for MANAGER PAID infection such as meningitis. Soft restraints were [...] time, the patient is being transferred to [facility]. Trent Augustine MD Emergency Medicine Trent Augustine [...] - 8 /HPF 01/12/2023 3:[address] [facility] Urine RBC's 3-8(A) 0 - 3 /HPF 01/12/2023 3:[address] [facility] Urine Bacteria Few(A) None Seen /HPF 01/12/2023 3:[address] [facility] Urine Hyaline Cast 3-8(A) 0 - 3 /LPF 01/12/2023 3:[address] [facility] Urine Squamous Epithelial Cells Moderate /HPF 01/12/2023 3:[address] [facility] Urine (Urine Straight Catheter) Non-blood collection / Unknown 01/12/2023 3:18 AM CDT 01/12/2023 3:[address] [facility] - 01/12/2023 3:48 AM CDT Urine Culture is not indicated. Trent Augustine MD EC URINE ORDERABLES [facility] [address] * (ABNORMAL) URINALYSIS, REFLEX TO CULTURE (01/12/2023 3:18 AM CDT) Urine Color Yellow Straw, Yellow, Kassie 01/12/2023 3:[address] [facility] Urine Appearance Clear Clear 01/12/2023 3:[address] [facility] Urine Specific [place] >=1.030 1.003 - 1.035 01/12/2023 3:[address] [facility] Urine pH 5.0 5.0 - 8.0 01/12/2023 3:[address] [facility] Urine Glucose Negative Negative 01/12/2023 3:[address] [facility] Urine Ketones Negative Negative 01/12/2023 3:[address] [facility] Urine Protein 100(A) Negative, Trace mg/dL 01/12/2023 3:[address] [facility] Urine Nitrites Negative Negative 01/12/2023 3:[address] [facility] Urine Leukocyte Esterase Negative Negative 01/12/2023 3:[address] [facility] Urine (Urine Straight Catheter) Non-blood collection / Unknown 01/12/2023 3:18 AM CDT 01/12/2023 3:22 AM CDT Trent Augustine MD EC URINE ORDERABLES [facility] [address] * (ABNORMAL) URINE DRUG SCREEN (01/12/2023 3:18 AM CDT) Urine Amphetamines Screen Negative Positive cut-off concentrati on: 1000 ng/mL 01/12/2023 3:[address] [facility] Urine Barbiturates Screen Negative Positive cut-off concentrati on: 200 ng/mL 01/12/2023 3:[address] [facility] Urine Benzodiazepines Screen Positive(A) Positive cut-off concentrati on: 200 ng/mL 01/12/2023 3:[address] [facility] Urine Buprenorphine Screen Negative Positive cut-off concentrati on: 5 ng/mL 01/12/2023 3:[address] [facility] Urine Cocaine Screen Negative Positive cut-off concentrati on: 300 ng/mL 01/12/2023 3:[address] [facility] Urine Methadone Screen Negative Positive cut-off concentrati on: 300 ng/mL 01/12/2023 3:[address] [facility] Urine Opiates Screen Negative Positive cut-off concentrati on:300 ng/mL 01/12/2023 3:[address] [facility] Urine Oxycodone Screen Negative Positive cut-off concentrati on: 300 ng/mL 01/12/2023 3:[address] [facility] Urine Phencyclidine (PCP) Screen Negative Positive cut-off concentrati on: 25 ng/mL 01/12/2023 3:[address] [facility] Urine Carboxy-THC Screen Negative Positive cut-off concentrati on: 50 ng/mL 01/12/2023 3:[address] [facility] Urine (Urine Straight Catheter) Non-blood collection / Unknown 01/12/2023 3:18 AM CDT 01/12/2023 3:[address] [facility] - 01/12/2023 3:42 AM CDT [...] MD EC URINE ORDERABLES Performing Organization Address City/State/[facility] Co de Phone Number [facility] [address] [place] [address] * Intubation (01/12/2023 3:02 AM CDT) Narrative [...] - 3.99 uIU/mL 01/12/2023 2:[address] [facility] Blood BLOOD SPECIMEN / Unknown Venipuncture / Unknown 01/12/2023 2:01 AM CDT 01/12/2023 2:04 AM CDT Trent Augustine MD EC CHEMISTRY ORDERAB LES ABN Performing Organization Address City/[facility] Co de Phone Number [facility] [address] [place] [address] * (ABNORMAL) LEVETIRACETAM ([facility]) (01/12/2023 2:01 AM CDT) Pathologist [facility] KEPPRA <2(L) 6 - 46 ug/mL 01/12/2023 3:[address] [facility] Blood BLOOD SPECIMEN / Unknown Venipuncture / Unknown 01/12/2023 2:01 AM CDT 01/12/2023 2:04 AM CDT Trent Augustine MD EC CHEMISTRY ORDERAB LES Performing Organization Address City/[facility] Co de Phone Number [facility] [address] [place] [address] * (ABNORMAL) VENOUS BLOOD GASES (01/12/2023 2:01 AM CDT) pH, Venous 7.10(LL) 7.35 - 7.45 01/12/2023 2:[address] [facility] pCO2, Venous 44 38 - 50 mmHg 01/12/2023 2:[address] [facility] Bicarbonate (HCO3), Venous 14(L) 23 - 27 mEq/L 01/12/2023 2:[address] [facility] Base Excess, Venous -16.0(L) -2.0 - 2.0 01/12/2023 2:[address] [facility] PATIENT TEMPERATURE FOR BLOOD GAS PH, PCO2, PO2 DATA CONVERSION 37.0 C 01/12/2023 2:[address] [facility] Blood BLOOD SPECIMEN / Unknown Venipuncture / Unknown 01/12/2023 2:01 AM CDT 01/12/2023 2:04 AM CDT Trent Augustine MD EC CHEMISTRY ORDERAB LES Performing Organization Address [facility] de Phone Number [facility] [address] [place] [address] * (ABNORMAL) LACTIC ACID, VENOUS (01/12/2023 2:01 AM CDT) Lactic Acid, Venous 12.6(HH) 0.5 - 2.0 mmol/L 01/12/2023 2:[address] [facility] Blood BLOOD SPECIMEN / Unknown Venipuncture / Unknown 01/12/2023 2:01 AM CDT 01/12/2023 2:04 AM CDT Trent Augustine MD EC CHEMISTRY ORDERAB LES Performing Organization Address City/[facility] Co de Phone Number [facility] [address] [place] [address] * C-REACTIVE PROTEIN (01/12/2023 2:01 AM CDT) C-Reactive Protein 0.2 0.0 - 0.8 mg/dL 01/12/2023 2:[address] [facility] Blood BLOOD SPECIMEN / Unknown Venipuncture / Unknown 01/12/2023 2:01 AM CDT 01/12/2023 2:04 AM CDT Trent Augustine MD EC CHEMISTRY ORDERAB LES [facility] [address] * (ABNORMAL) COMPREHENSIVE METABOLIC PANEL (01/12/2023 2:01 AM CDT) Pathologist [facility] Sodium 137 134 - 143 mEq/L 01/12/2023 2:[address] [facility] Potassium 4.0 3.4 - 5.1 mEq/L 01/12/2023 2:[address] [facility] Chloride 105 99 - 110 mEq/L 01/12/2023 2:[address] [facility] Carbon Dioxide 13(L) 19 - 29 mEq/L 01/12/2023 2:[address] [facility] Anion Gap 19.0(H) 3.0 - 15.0 mEq/L 01/12/2023 2:[address] [facility] Blood Urea Nitrogen 15 5 - 24 mg/dL 01/12/2023 2:[address] [facility] Creatinine 0.84 0.40 - 1.00 mg/dL 01/12/2023 2:[address] [facility] Glomerular Filtration Rate 79 >60 mL/min/1. 73 m*2 01/12/2023 2:[address] [facility] Comment:Risk of cardiovascul ar disease increases when GFR is abnormal; persistently reduced GFR values are a specific indication of CKD. This calculation uses CKD- EPI 2020 equation without adjustment for race; it has not been validated in women. Calcium 9.6 8.4 - 10.5 mg/dL 01/12/2023 2:[address] [facility] Glucose 138(H) 70 - 99 mg/dL 01/12/2023 2:[address] [facility] Protein, Total 7.6 6.0 - 8.0 g/dL 01/12/2023 2:[address] [facility] Albumin 4.2 3.5 - 5.0 g/dL 01/12/2023 2:[address] [facility] Alkaline Phosphatase 68 40 - 150 IU/L 01/12/2023 2:[address] [facility] Aspartate Aminotransferase 21 10 - 40 IU/L 01/12/2023 2:[address] [facility] Alanine Aminotransferase 18 6 - 31 IU/L 01/12/2023 2:[address] [facility] Bilirubin, Total 0.5 0.2 - 1.2 mg/dL 01/12/2023 2:[address] [facility] Blood BLOOD SPECIMEN / Unknown Venipuncture / Unknown 01/12/2023 2:01 AM CDT 01/12/2023 2:[address] [facility] - 01/12/2023 2:25 AM CDT Current ADA criteria for Glucose: ?Normal: 70-99 mg/dL ?Impaired Fasting Glucose: 100-125 mg/dL ?Diabetes Mellitus: at or above 126 mg/dL The diagnosis of diabetes must be confirmed on a subsequent day by measuring Fasting Plasma Glucose, 2-hr PG or random plasma glucose (if symptoms are present). Trent Augustine MD EC CHEMISTRY ORDERAB LES [facility] [address] * PROTIME (01/12/2023 2:01 AM CDT) INR 1.1 0.9 - 1.1 01/12/2023 2:[address] [facility] Protime 13.7 12.0 - 14.1 sec 01/12/2023 2:[address] [facility] Blood BLOOD SPECIMEN / Unknown Venipuncture / Unknown 01/12/2023 2:01 AM CDT 01/12/2023 2:[address] [facility] - 01/12/2023 2:16 AM CDT Suggested therapeutic INR ranges for oral anticoagulant therapy: Category ? INR Value Prophylaxis ?2.0-3.0 Treat Thrombosis or Embolism ? 2.0-3.0 Prosthetic Heart Valve ? 2.5-3.5 Trent Augustine MD EC HEMATOLOGY ORDERA BLES Performing Organization Address City/State/[facility] Co de Phone Number [facility] [address] [place] [address] * (ABNORMAL) HEMOGRAM/DIFFERENTIAL (01/12/2023 2:01 AM CDT) WBC 7.2 3.2 - 11.0 10*9/L 01/12/2023 2:[address] [facility] RBC 4.37 3.77 - 5.24 10*12/L 01/12/2023 2:[address] [facility] HGB 14.1 11.2 - 15.5 g/dL 01/12/2023 2:[address] [facility] HCT 42.6 34.3 - 46.0 % 01/12/2023 2:[address] [facility] MCV 97.5 81.4 - 99.0 fL 01/12/2023 2:[address] [facility] MCH 32.3 26.7 - 33.1 pg 01/12/2023 2:[address] [facility] MCHC 33.1 31.6 - 35.5 g/dL 01/12/2023 2:07 AM [facility] RDW 13.6 11.3 - 14.6 % 01/12/2023 2:07 AM [facility] PLT 218 130 - 375 10*9/L 01/12/2023 2:07 AM [facility] Neutrophils % 55.4 % 01/12/2023 2:07 AM [facility] Lymphocytes % 30.6 % 01/12/2023 2:07 AM [facility] Monocytes % 13.7 % 01/12/2023 2:07 AM [facility] Eosinophils % 0.0 % 01/12/2023 2:07 AM [facility] Basophils % 0.0 % 01/12/2023 2:07 AM [facility] Immature Granulocytes % 0.3 % 01/12/2023 2:07 AM [facility] Neutrophils Absolute 4.0 1.5 - 7.6 10*9/L 01/12/2023 2:07 AM [facility] Lymphocytes Absolute 2.2 0.8 - 3.3 10*9/L 01/12/2023 2:07 AM [facility] Monocytes Absolute 1.0(H) 0.2 - 0.9 10*9/L 01/12/2023 2:07 AM [facility] Eosinophils Absolute 0.0 0.0 - 0.4 10*9/L 01/12/2023 2:07 AM [facility] Basophils Absolute 0.0 0.0 - 0.1 10*9/L 01/12/2023 2:07 AM [facility] Immature Granulocytes Absolute 0.02 0.00 - 0.06 10*9/L 01/12/2023 2:07 AM [facility] Blood BLOOD SPECIMEN / Unknown Venipuncture / Unknown 01/12/2023 2:01 AM CDT 01/12/2023 2:04 AM CDT Trent Augustine MD EC HEMATOLOGY ORDERA BLES Performing Organization Address City/[facility]/ZIP Co de Phone Number [facility] [address] [place] [address] * MAGNESIUM (01/12/2023 2:01 AM CDT) Magnesium 2.1 1.8 - 2.7 mg/dL 01/12/2023 2:[address] [facility] Blood BLOOD SPECIMEN / Unknown Venipuncture / Unknown 01/12/2023 2:01 AM CDT 01/12/2023 2:04 AM CDT Trent Augustine MD EC CHEMISTRY ORDERAB LES Performing Organization Address [facility] Co de Phone Number [facility] [address] [place] [address] * ALCOHOL (01/12/2023 2:01 AM CDT) Alcohol <10.0 <=10.0 mg/dL 01/12/2023 2:[address] [facility] Blood BLOOD SPECIMEN / Unknown Venipuncture / Unknown 01/12/2023 2:01 AM CDT 01/12/2023 2:04 AM CDT Trent Augustine MD EC CHEMISTRY ORDERAB LES Performing Organization Address [facility] Co de Phone Number [facility] [address] [place] [address] * SALICYLATE (01/12/2023 2:01 AM CDT) Salicylate <5 <=25 mg/dL 01/12/2023 2:[address] [facility] Blood BLOOD SPECIMEN / Unknown Venipuncture / Unknown 01/12/2023 2:01 AM CDT 01/12/2023 2:04 AM CDT Trent Augustine MD EC CHEMISTRY ORDERAB LES Performing Organization Address [facility] Phone Number [facility] [address] [place] [address] * ACETAMINOPHEN (01/12/2023 2:01 AM CDT) Acetaminophen 28 <=30 ug/mL 01/12/2023 2:[address] [facility] Blood BLOOD SPECIMEN / Unknown Venipuncture / Unknown 01/12/2023 2:01 AM CDT 01/12/2023 2:[address] [facility] - 01/12/2023 2:25 AM CDT Call Poison Control Center ( ) for guidance in interpretation of results. The Yash nomogram for single, one time ingestions of acetaminophen is available in [employer]. Trent Augustine MD EC CHEMISTRY ORDERAB LES Performing Organization Address [facility] Phone Number [facility] [address] [place] [address] * Critical Care (01/12/2023 1:56 AM CDT) [...] or life-threatening deterioration of the following conditions: ??MANAGER PAID failure or compromise and respiratory failure ??Critical [...] EKG 12-LEAD (01/12/2023 1:56 AM CDT) Pathologist [facility] Ventricular Rate 141 BPM MUSE Atrial Rate 141 BPM MUSE P-R Interval 130 ms MUSE QRS Duration 86 ms MUSE QT 290 ms MUSE QTc 445 ms MUSE R Gans 29 degrees MUSE T Gans 71 degrees MUSE 01/12/2023 1:56 AM CDT [...]
--- OUTSIDE RECORDS SUMMARY | 2023-09-28 14:19 | XMS_ITS | Clinical Summary ---
Author Name Unknown Organization [facility] [employer] Count Includes [facility] Address [address] [address] Phone Care Team Providers Care Chaser Apprentice Name Role Phone Unavailable Primary Care Provider [...]
--- OUTSIDE RECORDS SUMMARY | 2023-09-28 14:19 | XMS_ITS | Encounter Summary ---
Author Name Unknown Organization [facility] Address [address] [address] Phone Care Team Providers Care Tactical Deception Plans Officer Name Role Phone Unavailable Primary Care Provider [...]
--- OUTSIDE RECORDS SUMMARY | 2023-09-28 14:20 | XMS_ITS | Clinical Summary ---
Author Name Unknown Organization [place] Address [address] [place] [address] Care Team Providers Care Solar Sales Specialist Name Role Phone Case Gao Primary Care Provider [phone] Allergies Active Allergy Reactions Criticality Noted Date [...] Octavia [employer] Implanted Type Area Sales And Events Coordinator Device Identifier Shelf Expiration Date Model / Serial / Lot Insert Actb 42mm 28mm E Hip X3 Adm Strl Lf Mdm 7236-2-848 - [id number] Implanted:Qty : 1 on 04/08/2023 by Fazal Ramirez MD at [facility] Metallic Hardware/An chor Left: Hip [employer] [id number] 10/07/2027 7236-2-84 8 / / [id number] Insert El 36mm 0deg X3 723-00-36e - [id number] Implanted:Qty : 1 on 03/25/2023 by Cj Chen MD at [facility] Total Joint Component/I nsert Left: Hip [employer] 12/24/2027 723-00-36 E / / [id number] Imp Head Femoral Strk Biolox Delta Ceramic 28mm +4mm - [id number] Implanted:Qty : 1 on 04/08/2023 by Fazal Ramirez MD at [facility] Total Joint Component/I nsert Left: Hip [employer] [id number] 10/31/2027 6570-0-22 8 / / [id number] Fibertape Cerclage, 2mm, 48 Implanted:Qty : 1 on 04/08/2023 by Fazal Ramirez MD at [facility] Left: Hip ARTHREX 11/03/2027 [id number] / / [id number] Explanted Type Area Sales And Events Coordinator Device Identifier Shelf Expiration Date Model / Serial / Lot Imp Head Femoral Strk Biolox Delta Ceramic 36mm +2.5mm - [id number] Implanted:Qty: 1 on 03/25/2023 by Cj Chen MD at [facility] Explanted:Qty: 1 on 04/08/2023 by Fazal Ramirez MD at [facility] Total Joint Component /Insert Left: Hip [employer] 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
--- OUTSIDE RECORDS SUMMARY | 2023-09-28 14:20 | XMS_ITS | Continuity of Care Document ---
Author Name Unknown Organization [facility] Address [address] [place] [address] Phone Care Team Providers Care Photograph Enlarger Name Role Phone Philippe PearlSarah barry DO Unavailable Unavailab le Allergies, Adverse Reactions, [...] route every day 5 MG - Active Procedures Procedure Date Office/Outpatient Visit, Est [...] [facility] , [address], [place], [address], [place] tel:[phone] [facility] , No Information 4 Skemp Pearl Sarah. [address], [place], [address], [place]. tel:[phone] [facility] , [address], [place], [address], [place] tel:[phone] [facility] , No Information 3 Skemp Pearl Sarah. [address], [place], [address], [place]. tel:[phone] [facility] , [address], [place], [address], [place] tel:[phone] [facility] , No Information 3 Skemp Pearl Sarah. [address], [place], [address], [place]. tel:[phone] [facility] , [address], [place], [address], [place] tel:[phone] [facility] No Information 3 Valentina Quintero. [address], [address], [place], [address], [place]. tel:[phone] [facility] , [address], [place], [address], [place] tel:[phone] [facility] , No Information 3 Skemp Pearl Sarah. [address], [place], [address], [place]. tel:[phone] Office/Outpa tient Visit, Est [facility] , [address], [place], [address], [place] tel:[phone] [facility] , Rheumatoid arthritis (chief complaint)Mo nitor Chronic High Risk Meds (chief complaint) RA w/ rheumatoid factor of multiple sites w/o organ involvementO ther detention (current) drug therapyOther dorsalgia 3 María Denis. [facility] [address], [place], [address], [place]. tel:[phone] , [facility] [address], [place], [address].Refer ring Provider: Adeel Tang, [facility] [address], [place], [address]. tel:[phone] [facility] , [address], [place], [address], [place] tel:[phone] [facility] No Information 2 María Denis. [facility] [address], [place], [address], [place]. tel:[phone] [facility] , [address], [place], [address], [place] tel:[phone] [facility] , No Information 2 María Denis. [facility] [address], [place], [address], [place]. tel:[phone] Office/Outpa tient Visit, Est [facility] , [address], [place], [address], [place] tel:[phone] [facility] , Rheumatoid arthritis (chief complaint)Mo nitor Chronic High Risk Meds (chief complaint) RA w/ rheumatoid factor of multiple sites w/o organ involvementO ther detention (current) drug therapy 2 María Denis. [facility] [address], [place], [address], [place]. tel:[phone] , [facility] [address], [place], [address].Refer ring Provider: Adeel Tang, [facility] [address], [place], [address]. tel:[phone] [facility] , [address], [place], [address], [place] tel:[phone] [facility] , No Information 2 María Denis. [facility] [address], [place], [address], [place]. tel:[phone] Referring Provider: Adeel Tang, [facility] [address], [place], [address]. tel:[phone] Office/Outpa tient Visit, Est [facility] , [address], [place], [address], [place] tel:[phone] [facility] , Rheumatoid arthritis (chief complaint)Mo nitor Chronic High Risk Meds (chief complaint) RA w/ rheumatoid factor of multiple sites w/o organ involvementO ther terminal clerk (current) drug therapy 1 María Denis. [facility] [address], [place], [address], [place]. tel:[phone] , [facility] [address], [place], [address].Refer ring Provider: Adeel Tang, [facility] [address], [place], [address]. tel:[phone] Office/Outpa tient Visit, Est [facility] , [address], [place], [address], [place] tel:[phone] [facility] , Rheumatoid arthritis (chief complaint)Mo nitor Chronic High Risk Meds (chief complaint) AnxietyRA w/ rheumatoid factor of multiple sites w/o organ involvementO ther terminal clerk (current) drug therapy 0 María Denis. [facility] [address], [place], [address], [place]. tel:[phone] , [facility] [address] [place] [address] [address], [place], [address].Refer ring Provider: Adeel Tang, [facility] [address], [place], [address]. [phone] Office/Outpa tient Visit, Est [facility] , [address], [place], [address], [place] tel:[phone] [facility] , Rheumatoid arthritis (chief complaint)Mo nitor Chronic High Risk Meds (chief complaint) AnxietyRA w/ rheumatoid factor of multiple sites w/o organ involvementO ther terminal clerk (current) drug therapy 0 María Denis. [facility] [address], [place], [address], [place]. tel:[phone] , [facility] [address] [place] [address] [address], [place], [address].Refer ring Provider: Adeel Tang, [facility] [address], [place], [address]. tel:[phone] Office/Outpa tient Visit, Est [facility] , [address], [place], [address], [place] tel:[phone] [facility] , Rheumatoid arthritis (chief complaint)Mo nitor Chronic High Risk Meds (chief complaint) AnxietyRA w/ rheumatoid factor of multiple sites w/o organ involvementO ther detention (current) drug therapy 9 María Denis. [facility] [address], [place], [address], [place]. tel:[phone] , [address], [place], [address].Refer ring Provider: Adeel Tang, [facility] [address], [place], [address]. tel:[phone] Office/Outpa tient Visit, Est [facility] , [address], [place], [address], [place] tel:[phone] [facility] , Rheumatoid arthritis (chief complaint)Mo nitor Chronic High Risk Meds (chief complaint) AnxietyRA w/ rheumatoid factor of multiple sites w/o organ involvementO ther terminal clerk (current) drug therapy María Denis. [facility] [address], [place], [address], [place]. tel:[phone] , [facility] [address] [place] [address] [address], [place], [address].Refer ring Provider: Adeel Tang, [facility] [address], [place], [address]. tel:[phone] Office/Outpa tient Visit, Est [facility] , [address], [place], [address], [place] tel:[phone] [facility] , Rheumatoid arthritis (chief complaint)Mo nitor Chronic High Risk Meds (chief complaint) RA w/ rheumatoid factor of multiple sites w/o organ involvementO ther terminal clerk (current) drug therapyAnxie ty 201 8 María Denis. [facility] [address], [place], [address], [place]. tel:[phone] Specialist: Tim Carrasquillo, [facility] [address] [place] [address] [address], [place], [address]. tel:[phone] ring Provider: Adeel Tang, [facility] [address], [place], [address]. tel:[phone] Office/Outpa tient Visit, Est [facility] , [address], [place], [address], [place] tel:[phone] [facility] , Rheumatoid arthritis (chief complaint)Mo nitor Chronic High Risk Meds (chief complaint) RA w/ rheumatoid factor of multiple sites w/o organ involvementO ther detention (current) drug therapy 7 María Denis. [facility] [address], [place], [address], [place]. tel:[phone] Specialist: Tim Carrasquillo, [facility] [address] [place] [address] [address], [place], [address]. tel:[phone] ring Provider: Adeel Tang, [facility] [address], [place], [address]. tel:[phone] [facility] , [address], [place], [address], [place] tel:[phone] [facility] , Rheumatoid arthritis (chief complaint)Mo nitor Chronic High Risk Meds (chief complaint) RA w/ rheumatoid factor of multiple sites w/o organ involvementO ther terminal clerk (current) drug therapyPain in right shoulder 7 María Denis. [facility] [address], [place], [address], [place]. tel:[phone] Specialist: Tim Carrasquillo, [facility] [address] [place] [address] [address], [place], [address]. tel:[phone] [facility] Provider: Adeel Tang, [facility] [address], [place], [address]. tel:[phone] Office/Outpa tient Visit, Est [facility] , [address], [place], [address], [place] tel:[phone] [facility] , Rheumatoid arthritis (chief complaint)Mo nitor Chronic High Risk Meds (chief complaint) RA w/ rheumatoid factor of multiple sites w/o organ involvementO ther terminal clerk (current) drug therapy 6 María Denis. [facility] [address], [place], [address], [place]. tel:[phone] Specialist: Tim Carrasquillo, [address], [place], [address]. tel:[phone] [facility] Provider: Adeel Tang, [facility] [address], [place], [address]. tel:[phone] Office/Outpa tient Visit, Est [facility] , [address], [place], [address], [place] tel:[phone] [facility] , Rheumatoid arthritis (chief complaint)Mo nitor Chronic High Risk Meds (chief complaint) RA w/ rheumatoid factor of multiple sites w/o organ involvementO ther terminal clerk (current) drug therapyShoul velasquez joint pain 5 María Denis. [facility] [address], [place], [address], [place]. tel:[phone] Specialist: Tim Carrasquillo, [facility] [address], [place], [address]. tel:[phone] [facility] Provider: Adeel Tang, [facility] [address], [place], [address]. tel:[phone] Office/Outpa tient Visit, Est [facility] , [address], [place], [address], [place] tel:[phone] [facility] , Rheumatoid arthritis (chief complaint)Mo nitor Chronic High Risk Meds (chief complaint) Rheumatoid arthritisThe rapeutic Drug MonitoringFi nger joint contracture María Denis. [facility] [address], [place], [address], [place]. tel:[phone] Specialist: Tim Carrasquillo, [address], [place], [address]. tel:[phone] [facility] Provider: Adeel Tang, [facility] [address], [place], [address]. tel:[phone] Office/Outpa tient Visit, Est [facility] , [address], [place], [address], [place] tel:[phone] [facility] , Rheumatoid Arthritis (chief complaint) Rheumatoid ArthritisThe rapeutic Drug MonitoringPa in in joint involving lower leg 4 María Denis. [facility] [address], [place], [address], [place]. tel:[phone] Specialist: Tim Carrasquillo, [address], [place], [address]. tel:[phone] ring Provider: Adeel Tang, [facility] [address], [place], [address]. tel:[phone] Office/Outpa tient Visit, Est [facility] , [address], [place], [address], [place] tel:[phone] [facility] , Rheumatoid Arthritis (chief complaint) Rheumatoid ArthritisThe rapeutic Drug MonitoringPa in in joint involving lower legPain in joint involving shoulder regionUnspec ified disorder of skin and subcutaneous tissue 4 María Denis. [facility] [address], [place], [address], [place]. tel:[phone] Specialist: Tim Carrasquillo [address], [place], [address]. tel:[phone] ring Provider: Adeel Tang, [facility] [address], [place], [address]. tel:[phone] Office/Outpa tient Visit, Est [facility] , [address], [place], [address], [place] tel:[phone] [facility] , Rheumatoid Arthritis (chief complaint) Rheumatoid ArthritisThe rapeutic Drug MonitoringPa in in joint involving shoulder region 4 María Denis. [facility] [address], [place], [address], [place]. tel:[phone] Specialist: Tim Carrasquillo [address], [place], [address]. tel:[phone] ring Provider: Adeel Tang, [facility] [address], [place], [address]. tel:[phone] Office/Outpa tient Visit, Est [facility] , [address], [place], [address], [place] tel:[phone] [facility] , Rheumatoid Arthritis (chief complaint) Rheumatoid ArthritisThe rapeutic Drug MonitoringLO NG-TERM (CURRENT) USE OF STEROIDS 3 María Denis. [facility] [address], [place], [address], [place]. tel:[phone] Specialist: Tim Carrasquillo, [address], [place], [place], [facility]. tel:[phone] ring Provider: Adeel Tang, [facility] [address], [place], [address]. tel:[phone] Office/Outpa tient Visit, Est [facility] , [address], [place], [address], [place] tel:[phone] [facility] , Rheumatoid Arthritis (chief complaint) Rheumatoid ArthritisThe rapeutic Drug MonitoringLO NG-TERM (CURRENT) USE OF STEROIDSCoug h 3 María Denis. [facility] [address], [place], [address], [place]. tel:[phone] Specialist: Tim Carrasquillo, [address], [place], [address]. tel:[phone] ring Provider: Adeel Tang, [facility] [address], [place], [address]. tel:[phone] Office/Outpa tient Visit, Est [facility] , [address], [place], [address], [place] tel:[phone] [facility] , Rheumatoid Arthritis (chief complaint) Rheumatoid ArthritisThe rapeutic Drug MonitoringLO NG-TERM (CURRENT) USE OF STEROIDS 3 María Denis. [facility] [address], [place], [address], [place]. tel:[phone] Specialist: Tim Carrasquillo, [facility] [address] [place] [address] [address], [place], [address]. tel:[phone] ring Provider: Adeel Tang, [facility] [address], [place], [address]. tel:[phone] Office/Outpa tient Visit, Est [facility] , [address], [place], [address], [place] tel:[phone] [facility] , Rheumatoid Arthritis (chief complaint) Rheumatoid ArthritisThe rapeutic Drug MonitoringUl cer of ankle 3 María Denis. [facility] [address], [place], [address], [place]. tel:[phone] Specialist: Tim Carrasquillo, [facility] [address] [place] [address] [address], [place], [address]. tel:[phone] ring Provider: Adeel Tang, [facility] [address], [place], [address]. tel:[phone] Office/Outpa tient Visit, Est [facility] , [address], [place], [address], [place] tel:[phone] [facility] , Rheumatoid Arthritis (chief complaint) Rheumatoid ArthritisThe rapeutic Drug MonitoringLO NG-TERM (CURRENT) USE OF STEROIDS Dec-0 2 María Adeel. [facility] [address], [place], [address], [place]. tel:[phone] Specialist: Tim Carrasquillo, [facility] [address] [place] [address] [address], [place], [place], [facility]. tel:[phone] ring Provider: Adeel Tang, [facility] [address], [place], [address]. tel:[phone] Office/Outpa tient Visit, Est [facility] , [address], [place], [address], [place] tel:[phone] [facility] , Rheumatoid Arthritis (chief complaint) Rheumatoid ArthritisLON G-TERM (CURRENT) USE OF STEROIDS Jul- 2 María Denis. [facility] [address], [place], [address], [place]. tel:[phone] Specialist: Tim Carrasquillo, [facility] [address] [place] [address] [address], [place], [address]. tel:[phone] ring Provider: Adeel Tang, [facility] [address], [place], [address]. tel:[phone] Office/Outpa tient Visit, New [facility] , [address], [place], [address], [place] tel:[phone] [facility] , Pulmonary infiltrates (chief complaint) Unspecified inflammatory polyarthropa thyLONG-TERM (CURRENT) USE OF STEROIDS 2 María Adeel. [facility] [address], [place], [address], [place]. tel:[phone] Specialist: Tim Carrasquillo, [facility] [address], [place], [address]. tel:[phone] ring Provider: Adeel Tang, [facility] , P.AJose Elias [address], [place], [address]. tel:[phone] Family History Family Member Type Diagnosis Age At Onset Sister Problem (finding) malignant neoplasm of o vary Father Problem (finding) cancer of colon Immunizations Vaccine Date Status Comments COVID-19 [employer] administered S ource: Other Provider Payers Payer name Insurance type Covered green party ID Authorpatt gaytanpoornima(s) [facility] [id number] Social History Type Description Quantity Date Captured [...] safety monitoring ophthalmologic evaluation. Related to Other terminal clerk (current) drug therapy Continue hydroxychlo roquine 400 [...] safety monitoring ophthalmologic evaluation. Related to Other terminal clerk (current) drug therapy Continue hydroxychlo roquine 400 [...] safety monitoring ophthalmologic evaluation. Related to Other terminal clerk (current) drug therapy Continue hydroxychlo roquine 400 [...] safety monitoring ophthalmologic evaluation. Related to Other terminal clerk (current) drug therapy Continue input as ne eded with her primary care provider or psychologist/psychiatrist.Minimize prednisone usage as able. Related to Anxiety After discussion of potential [...] performed every 3 months. Related to Other detention (current) drug therapy The patient will hav e CBC, Cr, transaminases and albumin performed every 3 months. Related to Other detention (current) drug therapy Continue input as ne [...] performed every 3 months. Related to Other detention (current) drug therapy I again urged ruel katz to update evaluation with her primary care provider or a psychologist/psychiatrist. Related to Anxiety I urged patient to u pdate her evaluation with her primary care provider or a psychologist/psychiatrist. Related to Anxiety Continue current ant i-rheumatic medications unchanged.I will strongly consider PFT and potential update of chest imaging.The patient may be moving to [facility] if her gets the new job that they anticipate. 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 Related to Other terminal clerk (current) drug therapy The patient will hav e CBC, Cr, transaminases and albumin performed every 3 months. Related to Other detention (current) drug therapy Continue current ant i-rheumatic medications unchanged.The patient may be moving to [facility] if her gets the new job [...] performed every 3 months. Related to Other detention (current) drug therapy Continue current ant i-rheumatic medications unchanged, except option to decrease prednisone from 5 milligrams to 4 milligrams per day.We will consider left knee joint corticosteroid injection. 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 Related to Other detention (current) drug therapy After discussion of potential treatment options, risks and benefits, the patient and I are in agreement with pursuing local corticosteroid injection. Related to Shoulder joint pain The patient will hav e CBC, Cr, transaminases and albumin performed every 2-3 months. Related to Other terminal clerk (current) drug therapy Continue current ant i-rheumatic [...]
--- OUTSIDE RECORDS SUMMARY | 2023-09-28 14:20 | XMS_ITS | Referral Summary ---
Author Name Unknown Organization [facility] Address [address] [place] [id number] Care Team Providers Care Contact Center Team Lead Name Role Phone Case Gao Primary Care Provider [phone] Allergies Active Allergy Reactions Criticality Noted Date [...] NitoOctavia ellsworth Medical Devices Implanted Type Area Feed And Farm Management Adviser Device Identifier Shelf Expiration Date Model / Serial / Lot Insert Actb 42mm 28mm E Hip X3 Adm Strl Lf Mdm 7236-2-848 - [id number] Implanted:Qty : 1 on 04/08/2023 by Fazal Ramirez MD at [facility] Metallic Hardware/An chor Left: Hip [employer] [id number] 10/07/2027 7236-2-84 8 / / [id number] Insert El 36mm 0deg X3 723-00-36e - [id number] Implanted:Qty : 1 on 03/25/2023 by Cj Chen MD at [facility] Total Joint Component/I nsert Left: Hip [employer] 12/24/2027 723-00-36 E / / [id number] Imp Head Femoral Strk Biolox Delta Ceramic 28mm +4mm - [id number] Implanted:Qty : 1 on 04/08/2023 by Fazal Ramirez MD at [facility] Total Joint Component/I nsert Left: Hip [employer] [id number] 10/31/2027 6570-0-22 8 / / [id number] Fibertape Cerclage, 2mm, 48 Implanted:Qty : 1 on 04/08/2023 by Fazal Ramirez MD at [facility] Left: Hip [employer] 11/03/2027 [id number] / / [id number] Explanted Type Area Feed And Farm Management Adviser Device Identifier Shelf Expiration Date Model / Serial / Lot Imp Head Femoral Strk Biolox Delta Ceramic 36mm +2.5mm - [id number] Implanted:Qty: 1 on 03/25/2023 by Cj Chen MD at [facility] Explanted:Qty: 1 on 04/08/2023 by Fazal Ramirez MD at [facility] Total Joint Component /Insert Left: Hip [employer] 12/07/2027 6570-0-536 / / [id number] Titanium Washer, 13.0 Mm Implanted:Qty: 3 on 01/25/2021 by Cj Chen MD at [facility] Explanted:Qty: 3 on 03/25/2023 by Cj Chen MD at [facility] Left: Hip SYNTHES 419.99 24 JAN 2021 8002 Additional Health Concerns Problem Noted Date Diagnosed Date 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
--- OUTSIDE RECORDS SUMMARY | 2023-09-28 14:20 | XMS_ITS | Encounter Summary ---
Author Name Unknown Organization [place] [facility] Address [address] [place] [address]. [place] [address] Care Team Providers Care Capacity Planning Analyst Name Role Phone Sima Case Sierra Primary Care Provider [phone] Reason for Visit * Reason Comments Hip Pain * Auth/Cert (Routine) Specialty Diagnoses / Procedures Referred By Konstantin t Referred To Contact Surgery Diagnoses Periprosthetic hip fracture, initial encounter Periprosthetic hip fracture, initial encounter Rh Preop/Postop [address] [place] [address] Referral ID Status Reason Start Date Expiration Date Visits Re quested Visits Authorized [id number] 1 1 Encounter Details Date Type Department Care Team (Late st Contact Info) Description 04/07/2023 2:25 PM CDT - 04/12/2023 11:32 AM CDT Hospital Encounter [facility] Ortho Spine [address] [place] [address] Rusty Schultz PA-C [facility] [address] [place] [address] Deyanira Locke MD [address] [address] Anemia due to blood [...] 04/12/2023 11:32 AM CDT Physician Discharge Summary [facility] Hospitalist Discharge Summary-[facility] Name: Mora Galeas Date of : 1960 [...] Location: OR CARPAL TUNNEL RELEASE RT/LT Bilateral BOOT LACE CUTTER MACHINE SURGERY c section x 3 OPEN REDUCTION [...] DOSE WARFARIN PAIN MANAGEMENT ADULT IP CONSULT [facility] IP CONSULT PHYSICAL THERAPY ADULT [...] your medicines These medications were sent to [place], [place] - [address] [facility] [address] [facility] [address] ferrous sulfate 325 (65 Fe) MG EC [...] return or gets worse. Follow up with car sales consultant as instructed with ortho Other instructions: [...] partially visualized. JEROD YEAGER MD SYSTEM ID: [id number] XR Surgery RAAD L/T 5 Min Fluoro w Stills Narrative This exam was marked as non-reportable because it will not be read by a radiologist or a [place] non-radiologist provider. XR Pelvis w Hip Port [...] alignment. Osteopenia. POLO GARCIA MD SYSTEM ID: [id number] CT Pelvis Soft Tissue w Contrast Narrative EXAM: CT PELVIS SOFT TISSUE W CONTRAST LOCATION: [facility] DATE: 04/10/2023 INDICATION: Hgb [...] Ramirez's clinic in [address] week([address] Ramirez's career guidance counselor is Dede Sadler. Please contact her at [phone] to schedule [address]. Ramirez sees patient's at 2 clinic locations: [facility] Orthopedics [facility] [address] [place] [id number] [place] [address] Orthopedics - [place] [address], [address], [place] [address] Please call the on-call phone number [phone] during evenings, nights and weekends for any [...] confirm recommendations regarding resuming her RA meds. ([phone]) 2. Disposition Anticipate d/c to home. Ortho [...] CM informed patient she was accepted at [facility], she stated she no longer wanted to go to TCU and would prefer to go home with outpatient PT. She would like to go to [facility] for PT on [facility] in [place]. She stated her can transport her and she is eager to discharge today. CM called and informed [facility] patient declined TCU placement. Hospitalist, charge nurse, and bedside nurse notified. Nesha Ross RN, BSN Inpatient Care Coordination [facility] [phone] * Trini Torres PA-C - 04/11/2023 11:12 [...] changed at bedside today by Dr Ramirez ([facility]) Minimal erythema of the surrounding skin. [...] from the original note were not included. [facility] Hospitalist Progress Note Jonathan Linn M.D., M.B.A. [...] partially visualized. JEROD YEAGER MD SYSTEM ID: [id number] XR Surgery RAAD L/T 5 Min Fluoro w Stills Narrative This exam was marked as non-reportable because it will not be read by a radiologist or a [place] non-radiologist provider. XR Pelvis w Hip Port [...] alignment. Osteopenia. POLO GARCIA MD SYSTEM ID: [id number] COVID Status: COVID-19 PCR Results 04/10/2021 09:25 [...] from the original note were not included. [facility] Hospitalist Progress Note Jonathan Linn M.D., M.B.A. [...] partially visualized. JEROD YEAGER MD SYSTEM ID: [id number] XR Surgery RAAD L/T 5 Min Fluoro w Stills Narrative This exam was marked as non-reportable because it will not be read by a radiologist or a [place] non-radiologist provider. XR Pelvis w Hip Port [...] alignment. Osteopenia. 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 She is close with her , Dell, who is a cemetery vault installer. Meaning, Beliefs, and Spirituality - Pt reports that her vicki is very important for her. She identifies as Shinto - [employer]. She experiences God's love and justina in her life, and this is a major support for her. Mora prioritizes reading scripture and feels moved by sermons that get to the root of the Gospel message. She welcomed prayer with me. Plan of Care - I and other chaplains remain available for further support. I informed pt on how to request a tank car mechanic should further support be needed. Karoline Martinez Interventionist Drawing Press Operator [facility] routine referrals *[id number] [facility] available 28/03 for emergent requests/referrals, either by paging the on-call tank car mechanic or by entering an HOWIE/STAT consult in [facility] (this will also page the on-call tank car mechanic). * Vira Fernandes PA-C - 04/10/2023 10:07 [...] when medically cleared and progressing in PT. Viar Fernandes PA-C * Fazal Ramirez MD - [...] from the original note were not included. [facility] Hospitalist Progress Note Jonathan Linn M.D., M.B.A. [...] partially visualized. JEROD YEAGER MD SYSTEM ID: [id number] XR Surgery RAAD L/T 5 Min Fluoro w Stills Narrative This exam was marked as non-reportable because it will not be read by a radiologist or a [place] non-radiologist provider. XR Pelvis w Hip Port [...] alignment. Osteopenia. POLO GARCIA MD SYSTEM ID: [id number] COVID Status: COVID-19 PCR Results 04/10/2021 09:25 [...] flowsheet Bed Mobility Bed Mobility supine-sit;sit-supine Supine-Sit [place] (Bed Mobility) minimum assist (75% patient effort) Sit-Supine [place] (Bed Mobility) minimum assist (75% patient effort) [...] Evaluation Time OT Elizabeth, Low Complexity Minutes (20555) 10 OT Goals Therapy Frequency (OT) 5 [...] Management Self-Care/Home Mgmt/ADL, Compensatory, Meal Prep Minutes (57488) 22 Treatment Detail/Skilled Intervention Pt is educated [...] PT - 04/09/2023 10:09 AM CDT 04/09/23 0951 Appointment Info Signing Clinician's Name / Credentials [...] Evaluation Time PT Eval, Low Complexity Minutes (01374) 10 Physical Therapy Goals PT Frequency Daily PT Predicted Duration/Target Date for Goal Attainment 04/12/23 PT Goals Transfers;Bed Mobility;Gait PT: Bed Mobility Supine to/from sit;Rolling;Modified independent PT: Transfers Supervision/stand-by assist;Sit to/from stand;Modified independent PT: Gait Supervision/stand-by assist;Greater than 200 feet;Rolling walker;Within precautions Therapeutic Procedure/Exercise Ther. Procedure: strength, endurance, ROM, flexibillity Minutes (78841) 10 Treatment Detail/Skilled Intervention Pt engaged in 10 reps LLE AP, QS, heel slide, SAQ for improved bld flow and ROM prior to OOBmobility tolerated well Symptoms Noted During/After Treatment fatigue;increased pain Therapeutic Activity Therapeutic Activities: dynamic activities to improve functional performance Minutes (71593) 10 Treatment Detail/Skilled Intervention Pt supine upon [...] BLE elevated Gait Training Gait Training Minutes (23935) 15 Symptoms Noted During/After Treatment (Gait Training) [...] from the original note were not included. [facility] Hospitalist Progress Note Jonathan Linn M.D., M.B.A. [...] partially visualized. JEROD YEAGER MD SYSTEM ID: [id number] XR Surgery RAAD L/T 5 Min Fluoro w Stills Narrative This exam was marked as non-reportable because it will not be read by a radiologist or a [place] non-radiologist provider. XR Pelvis w Hip Port [...] alignment. Osteopenia. POLO GARCIA MD SYSTEM ID: [id number] COVID Status: COVID-19 PCR Results 04/10/2021 09:25 [...] Locke MD - 04/07/2023 3:10 PM CDT [facility] History and Physical - Hospitalist Service Date [...] Disposition Plan Deyanira Locke MD Hospitalist Service [facility] Securely message with Carma (more info) Text page via [facility] Paging/Directory Chief Complaint Left hip pain in [...] SH OR CARPAL TUNNEL RELEASE RT/LT Bilateral BOOT LACE CUTTER MACHINE SURGERY c section x 3 OPEN REDUCTION [...] night she is lives with her in [facility] Family History No significant family history, including [...] encounter Consult Notes * Caron Alba APRN RN RADIATION - 04/11/2023 5:30 PM CDTAssociated Order(s): PAIN MANAGEMENT ADULT IP CONSULT Images from the original note were not included. [facility] Acute Pain Management Consultation Date [...] Obesity, Smoker, Age>60, >2 opioid therapies, concomitant RN RADIATION depressants, opioid naive status, or post surgical [...] she had rarely taken opiates. Per [place] [facility] review Oxycodone and Tramadol. The patient is [...] care everywhere. Last UDS - none [place] [facility] DENT[facility]-pulled from system on 04/11/23. Last refill on [...] (Left, 01/25/2021); carpal tunnel release rt/lt (Bilateral); BOOT LACE CUTTER MACHINE surgery; Total Knee Arthroplasty (Left, 04/2021); tubal [...] anxiety (with pain, moderate pain) 03/25/23 Yes jC Chen MD levETIRAcetam (KEPPRA) 500 MG tablet [...] partially visualized. JEROD YEAGER MD SYSTEM ID: [id number] XR Pelvis w Hip Port Left 1 View Impression IMPRESSION: Status post left total hip arthroplasty revision with longstem femoral component. Periprosthetic fracture of the proximal femur with improved alignment. Expected postsurgical soft tissue edema, subcutaneous emphysema, and skin pepe. Normal joint alignment. Osteopenia. POLO GARCIA MD SYSTEM ID: [id number] CT Pelvis Soft Tissue w Contrast Impression [...] you for this consultation. Caron Alba APRN, RN RADIATION, ACHPN, FAACVPR Acute Pain Team (SD/RH) 8 AM to 4:30 PM after 4:30 page manager of warehouse No weekend coverage [facility] Paging/Directory Pain Securely message with the [facility] Console (learn more here) * OLIVIA PARKICA [...] Communication Assessment Patient's communication style: spoken language (Mauritanian or Bilingual) Hearing Difficulty or Deaf: no [...] see. Pt would like referrals sent to [facility], referrals sent. Pt stated her will provide transportation. Pt reports being independent with IADL/ADLs and uses a rolling walker. [place], BEN, [facility] Inpatient Care Coordination [facility] [phone] * Trini Torres PA-C - 04/07/2023 2:[address] [facility] Orthopedic Consultation Mora Rodriguez Adal Age: [age] [...] She had increased pain and xrays at [facility] and was told xrays were negative. [...] SH OR CARPAL TUNNEL RELEASE RT/LT Bilateral BOOT LACE CUTTER MACHINE SURGERY c section x 3 OPEN REDUCTION [...] Status --------- ------ CBC with platelets and d...[[id number]] Please view results for these tests on the individual orders. ABO/Rh type and screen Status: None () Narrative The following orders were created for panel order ABO/Rh type and screen. Procedure Abnormality Status --------- ------ Adult Type and Screen[[id number]] Please view results for these tests on [...] pop in her hip. She presented to [facility] where x-rays were read as [...] Smith RN - 04/07/2023 3:[address] [facility] ED Nurse Handoff Report ED Chief complaint: Hip Pain . ED Diagnosis: Final diagnoses: Periprosthetic hip fracture, initial encounter Allergies: Allergies Allergen Reactions Aspirin Anaphylaxis Code Status: Full Code Activity level - Baseline/Home: independent. Activity Level - Current: in bed. Lift room needed: No. Bariatric: No Agricultural Engineering Technician Needed: No Isolation: No. Infection: Not Applicable. [...] 5 mg (5 mg Oral $Given 04/07/23 0047) Drips infusing: No For the majority of [...] Patient Only Review of External Notes: Reviewed [facility] Ortho note Dr. Cj Issa [...] partially visualized. JEROD YEAGER MD SYSTEM ID: [id number] Report per radiology Laboratory: Labs Ordered and [...] NEG Antibody Screen Negative SPECIMEN EXPIRATION DATE [id number] ABO/RH TYPE AND SCREEN Emergency Department Course [...] care of Dr. Locke. Impression & Plan [facility] Diagnoses: None Medical Decision Making: This is [...] 2-3 Expected length of therapy undetermined. Warfarin NICKEL PLATER Regimen: 2.5 mg daily Anticoagulation Dose History [...] goal(s). See goals on Care Plan in [facility] electronic health record for goal details. [...] goal(s). See goals on Care Plan in [facility] electronic health record for goal details. [...] Reason: IVC Does patient have an identified assistant track [...] Stevenson RN - 04/09/2023 4:00 PM CDT Carma Web Paged Dr. Linn: Tachy HRs 130-140s, [...] 10 mg. Does patient have an identified assistant track and field coach: Yes, was at bedside this afternoon. Has goal D/C date and time been discussed with patient: Yes, TCU when stable. Pt A&O x4, afebrile. BP elevated. 98% RA. Capno in place. CMS intact, denies numbness and tingling, abductor pillow in place. Denies nausea and vomiting. Will continue to monitor. * Pharmacy-Anticoagulation Service - Angel Barker [facility] - 04/08/2023 7:12 PM CDT Clinical Pharmacy - Warfarin Dosing Consult Pharmacy has been consulted to manage this patient???s warfarin therapy. Indication: DVT/PE Prophylaxis Therapy Goal: INR 2-3 Warfarin Prior to Admission: Yes Warfarin NICKEL PLATER Regimen: 2.5 mg daily Significant drug interactions: [...] CDT ORTHOPEDIC SURGERY OPERATIVE NOTE Mora Galeas [id number] 1960 April 08, 2023 PREOPERATIVE DIAGNOSIS: Left [...] the pre-existing implant. SURGEON: Fazal Ramirez MD TYPING CHECKER: Rohini Beal PA-C; A skilled accounting assistant was necessary for this procedure for assistance with patient positioning, prepping, draping, surgical visualization, wound closure, and application of the dressing. Vira Fernandes PA-C SPECIMENS: None COMPLICATIONS: None ESTIMATED BLOOD LOSS: 350cc IMPLANTS: Implant Name Type Inv. Item Serial No. Leather Crafter Lot No. LRB No. Used Action IMP HEAD FEMORAL STRK BIOLOX DELTA CERAMIC 36MM +2.5MM - [id number] Total Joint Component/Insert IMP HEAD FEMORAL STRK BIOLOX DELTA CERAMIC 36MM +2.5MM Well Done [id number] Left 1 Explanted IMP STEM FEMORAL HIP STRK ACCOLADE II 132DEG SZ 5 [id number] - [id number] Total Joint Component/Insert IMP STEM FEMORAL HIP STRK ACCOLADE II 132DEG SZ 5 0858- [id number] Well Done [id number] Left 1 Explanted FiberTape Cerclage, 2mm, 48 ARTHREX [id number] Left 3 Implanted IMP STEM FEM RSTRTN MOD BOWED CONICAL [id number] - [id number] Total Joint Component/InsertIMP STEM FEM RSTRTN MOD BOWED CONICAL [id number] Well Done [id number] Left 1 Implanted IMP INSERT ACET STRK MDM COCR HIP 0DEG 42MM SZ E [id number] - [id number] Total Joint Component/Insert IMP INSERT ACET STRK MDM COCR HIP 0DEG 42MM SZ E [id number] Well Done [id number] Left 1 Implanted IMP STEM FEM MOD REV HIP PROX BODY/BOLT 19MM +10 6276--119 - [id number] Total Joint Component/Insert IMP STEM FEM MOD REV HIP PROX BODY/BOLT 19MM +10 6276--119 Well Done [id number] Left 1 Implanted INSERT ACTB 42MM 28MM E HIP X3 ADM STRL [facility] 7236-2-848 - [id number] Metallic Hardware/[place] INSERT ACTB 42MM 28MM E HIP X3 ADM STRL [facility] 7236-2-208 Well Done [id number] Left 1 Implanted IMP HEAD FEMORAL STRK BIOLOX DELTA CERAMIC 28MM +4MM - [id number] Total Joint Component/Insert IMP HEAD FEMORAL STRK BIOLOX DELTA CERAMIC 28MM +4MM Well Done [id number] Left 1 Implanted FiberTape Cerclage, 2mm, 48 [id number] ARTHREX Left 1 Implanted FiberTape Cerclage, 2mm, 48 ARTHREX [id number] Left 1 Implanted PRIOR IMPLANTS: She has a [place] 52 mm Trident TriTanium cluster hole acetabular [...] pop in her hip. She presented to [facility] where x-rays were read as [...] be loose and easilyremoved with a vice microsoft dynamics developer Revision hip arthroplasty We then proceeded with placement of a new stem. Prior to placement of the new stem, a Arthrex fibertape cerclage was placed just distal to the fracture along the femoral shaft to prevent any propagation of a femoral shaft fracture. The Event Farm episcopalian modular implant system was utilized. The femoral shaft was reamed sequentially up to a size 19mm. Intraoperative radiographs were obtained to ensure good fit. A [id number] was selected and implanted into the femoral [...] Ramirez's clinic in [address] Ramirez's career guidance counselor is Dede Sadler. Please contact her at [phone] to schedule an appointment. Dr. Ramirez sees patient's at 2 clinic locations: [facility] Orthopedics - [place] [address] [place] [address] [facility] Orthoped[facility] - [place] [address] , [address], [place] [address] Please call the on-call phone number [phone] during evenings, nights and weekends for any urgent needs. Prescription refills must be done during business hours by calling [phone] Fazal Ramirez MD [facility] * Plan of Care [...] through pain Does patient have an identified assistant track [...] Yes Information Source(s): Patient, Hospital records, and [facility] in-person Pertinent Information: Pt recently started warfarin following surgery a couple of weeks ago - Rx states to take two 2.5 mg tabs daily (5 mg total), however pt has only been taking one 2.5 mg tab daily. Pt states has green colored tabs at home. Changes made to NICKEL PLATER medication list: Added: None Deleted: None Changed: Warfarin 5 mg daily -> 2.5 mg daily Senna-doc -> PRN Allergies reviewed with patient and updates made in EHR: yes Medication History Completed By: Trini Josue RPH 04/07/2023 6:44 PM Prior to Admission medications Medication Sig Last Dose Taking? Auth Provider Catholic Priest End Date acetaminophen (TYLENOL) 325 MG tablet [...] Locke MD LAB - BLOOD ORDERABL ES [facility] [address] (1st floor, no room number) [place] [id number], [facility] [phone] * (ABNORMAL) Hemoglobin (04/12/2023 6:41 AM CDT) Hemoglobin 7.8(L) 11.7 - 15.7 g/dL 04/12/2023 6:49 AM CDT [facility] Blood STRUCTURE OF LEFT HAND / Unknown Venipuncture / Unknown 04/12/2023 6:41 AM CDT 04/12/2023 6:45 AM CDT Jonathan Linn MD LAB - BLOOD ORDERABL ES [facility] [address] (1st floor, no room number) [place] [address], [facility] [phone] * (ABNORMAL) INR (04/12/2023 6:41 AM CDT) INR 1.28(H) 0.85 - 1.15 04/12/2023 6:58 AM CDT [facility] Blood STRUCTURE OF LEFT HAND / Unknown Venipuncture / Unknown 04/12/2023 6:41 AM CDT 04/12/2023 6:45 AM CDT Rohini Beal PA-C LAB - BLOOD ORDERA BLES LABORATORY [facility] Lab [address] Lab (1st floor, no room number) [place] [id number], [facility] [phone] * (ABNORMAL) Hemoglobin (04/11/2023 5:58 PM CDT) Hemoglobin 7.6(L) 11.7 - 15.7 g/dL 04/11/2023 6:06 PM CDT [facility] Blood STRUCTURE OF RIGHT UPPER LIMB / Unknown Venipuncture / Unknown 04/11/2023 5:58 PM CDT 04/11/2023 6:01 PM CDT Jonathan Linn MD LAB - BLOOD ORDERABL ES Performing Organization Address [facility]/ZIP Co de Phone Number [facility] Lab [address] Lab (1st floor, no room number) [place] [id number], [facility] [phone] * (ABNORMAL) INR (04/11/2023 6:51 AM CDT) INR 1.29(H) 0.85 - 1.15 04/11/2023 7:20 AM CDT [facility] Blood STRUCTURE OF RIGHT UPPER LIMB / Unknown Venipuncture / Unknown 04/11/2023 6:51 AM CDT 04/11/2023 7:03 AM CDT Rohini Beal PA-C LAB - BLOOD ORDERA BLES [facility] Care Lab [address] Lab (1st floor, no room number) [place] [address], [facility] [phone] * Platelet count (04/11/2023 6:51 AM CDT) Platelet Count 383 150 - 450 10e3/uL 04/11/2023 7:06 AM CDT [facility] Blood STRUCTURE OF RIGHT UPPER LIMB / Unknown Venipuncture / Unknown 04/11/2023 6:51 AM CDT 04/11/2023 7:03 AM CDT Rohini Beal PA-C LAB - BLOOD ORDERA BLES LABORATORY [facility] Acute Care Lab [address] Lab (1st floor, no room number) [place] [id number], [facility] [phone] * (ABNORMAL) Hemoglobin (04/11/2023 6:51 AM CDT) Hemoglobin 7.7(L) 11.7 - 15.7 g/dL 04/11/2023 7:06 AM CDT [facility] Blood STRUCTURE OF RIGHT UPPER LIMB / Unknown Venipuncture / Unknown 04/11/2023 6:51 AM CDT 04/11/2023 7:03 AM CDT Jonathan Linn MD LAB - BLOOD ORDERABL ES Performing Organization Address [facility]/ZIP Co de Phone Number [facility] Lab [address] Lab (1st floor, no room number) [place] [id number], [facility] [phone] * Transfuse red blood cells (unit) (04/10/2023 11:32 PM CDT) Isabel Hawthorne MD BLOOD TRANSFUSION OR DERABLES * Transfuse red blood cells (unit), 1 Units (04/10/2023 11:32 PM CDT) Isabel Hawthorne MD BLOOD TRANSFUSION OR DERABLES * Prepare red blood cells (unit) (04/10/2023 8:23 PM CDT) Blood Component Type Red Blood Cells RH BLOOD BANK Product Code [id number] RH BLOO D BANK Unit Status Transfused RH BLOO D BANK Unit Number [id number] RH B LOOD BANK CROSSMATCH Compatible RH BLOOD BANK CODING SYSTEM [id number] RH BLO OD BANK ISSUE DATE AND TIME [id number] RH BLOOD BANK UNIT ABO/RH A- RH BLOOD BANK UNIT TYPE ISBT 0600 RH BL OOD BANK 04/10/2023 8:23 PM CDT Isabel Hawthorne MD BLOOD BANK PRODUCT O RDERABLES Performing Organization Address City/[facility]/ZIP Co de Phone Number [facility] BLOOD BANK [address] [place] [address], [facility] * Adult Type and Screen (04/10/2023 8:04 PM CDT) ABO/RH(D) A NEG 04/10/2023 7:13 PM CDT RH BLOOD BANK Antibody Screen Negative Negative 04/10/2023 7:13 PM CDT RH BLOOD BANK SPECIMEN EXPIRATION DATE [id number] 04/10/2023 7:13 PM CDT RH BLOOD BANK Blood STRUCTURE OF RIGHT UPPER LIMB / Unknown Venipuncture / Unknown 04/10/2023 8:04 PM CDT 04/10/2023 8:06 PM CDT Drake Aburto MD LAB - BLOOD BANK RENITA T ORDER Performing Organization Address [facility] Co de Phone Number [facility] BLOOD BANK [address] [place] [address], [facility] * CT Pelvis Soft Tissue w [...] CT PELVIS SOFT TISSUE W CONTRAST LOCATION: [facility] DATE: 04/10/2023 INDICATION: Hgb [...] CT PELVIS SOFT TISSUE W CONTRAST LOCATION: [facility] DATE: 04/10/2023 INDICATION: Hgb [...] Linn MD LAB - BLOOD ORDERABL ES [facility] [address] Lab (1st floor, no room number) [place] [address], [facility] [phone] * (ABNORMAL) Glucose (04/10/2023 7:07 AM CDT) Glucose 108(H) 70 - 99 mg/dL 04/10/2023 7:36 AM CDT [facility] LAB[facility] Blood STRUCTURE OF RIGHT UPPER LIMB / Unknown Venipuncture / Unknown 04/10/2023 7:07 AM CDT 04/10/2023 7:12 AM CDT Jonathan Linn MD LAB - BLOOD ORDERABL ES [facility] [place] [facility] [address] Lab (1st floor, no room number) [place] [address], [place] [phone] * (ABNORMAL) INR (04/10/2023 7:07 AM CDT) INR 1.31(H) 0.85 - 1.15 04/10/2023 7:26 AM CDT [facility] LABORATORY Blood STRUCTURE OF RIGHT UPPER LIMB / Unknown Venipuncture / Unknown 04/10/2023 7:07 AM CDT 04/10/2023 7:12 AM CDT Rohini Beal PA-C LAB - BLOOD ORDERA BLES LABORATORY [facility] Care Lab [address] Lab (1st floor, no room number) [place] [address], [place] [phone] * (ABNORMAL) Basic metabolic panel (04/10/2023 7:07 [...] MD LAB - BLOOD ORDERABL ES LABORATORY [facility] Acute Care Lab [address] Lab (1st floor, no room number) [place] [address], [place] [phone] * (ABNORMAL) CBC with platelets (04/10/2023 7:07 [...] MD LAB - BLOOD ORDERABL ES LABORATORY [facility] Acute Care Lab [address] Lab (1st floor, no room number) [place] [address], [facility] [phone] * (ABNORMAL) INR (04/09/2023 7:39 AM CDT) INR 1.18(H) 0.85 - 1.15 04/09/2023 8:20 AM CDT [facility] LABORATORY Blood STRUCTURE OF RIGHT HAND / Unknown Venipuncture / Unknown 04/09/2023 7:39 AM CDT 04/09/2023 7:47 AM CDT Rohini Beal PA-C LAB - BLOOD ORDERA BLES LABORATORY [facility] Acute Care Lab [address] Lab (1st floor, no room number) [place] [address], [facility] [phone] * (ABNORMAL) Basic metabolic panel (04/09/2023 7:39 [...] MD LAB - BLOOD ORDERABL ES LABORATORY [facility] Acute Care Lab [address] Lab (1st floor, no room number) [place] [address], [facility] [phone] * (ABNORMAL) CBC with platelets (04/09/2023 7:39 [...] LAB - BLOOD ORDERABL ES [facility] LABORATORY [facility] Lab [address] Lab (1st floor, no room number) [place] [address], [facility] [phone] * (ABNORMAL) INR (04/08/2023 6:15 PM CDT) INR 1.26(H) 0.85 - 1.15 04/08/2023 6:41 PM CDT [facility] LABORATORY Blood STRUCTURE OF RIGHT HAND / Unknown Venipuncture / Unknown 04/08/2023 6:15 PM CDT 04/08/2023 6:28 PM CDT Rohini Beal PA-C LAB - BLOOD ORDERA BLES LABORATORY [facility] Acute Care Lab [address] Lab (1st floor, no room number) [place] [address], [facility] [phone] * XR Pelvis w Hip Port Left [...] alignment. Osteopenia. POLO GARCIA MD SYSTEM ID: ??[id number] Narrative 04/08/2023 4:18 PM CDT XR PELVIS [...] alignment. Osteopenia. POLO GARCIA MD SYSTEM ID: [id number] Rohini Beal PA-C IMG DIAGNOSTIC PARAM GING [...] - BLOOD ORDERA BLES Performing Organization Address [facility]/ZIP Co de Phone Number [facility] Care Lab [address] Lab (1st floor, no room number) [place] [address], [facility] [phone] * XR Surgery RAAD L/T 5 Min Fluoro w Stills (04/08/2023 2:18 PM CDT) Narrative [facility] - 04/08/2023 2:19 PM CDT This exam was marked as non-reportable because it will not be read by a radiologist or a [place] non-radiologist provider. Fazal Ramirez MD IMG DIAGNOSTIC PARAM GING ORDERABLES Performing Organization Address [facility] de Phone Number [facility] * (ABNORMAL) INR (04/08/2023 3:57 AM CDT) INR 1.39(H) 0.85 - 1.15 04/08/2023 4:28 AM CDT RH LABORATORY Blood STRUCTURE OF RIGHT UPPER LIMB / Unknown Venipuncture / Unknown 04/08/2023 3:57 AM CDT 04/08/2023 4:17 AM CDT Deyanira Locke MD LAB - BLOOD ORDERABL ES Performing Organization Address [facility] Co de Phone Number [facility] Acute Care Lab [address] Lab (1st floor, no room number) [place] [address], [facility] [phone] * (ABNORMAL) CBC with platelets (04/08/2023 3:57 [...] LAB - BLOOD ORDERABL ES RH LABORATORY [facility] Acute Care Lab [address] [facility] Lab (1st floor, no room number) [place] [address], [facility] [phone] * (ABNORMAL) Basic metabolic panel (04/08/2023 3:57 AM CDT) Pathologist [facility] Sodium 136 136 - 145 mmol/L [...] MD LAB - BLOOD ORDERABL ES LABORATORY [facility] Acute Care Lab [address] [facility] Lab (1st floor, no room number) [place] [address], [facility] [phone] * CT Hip Left w/o Contrast (04/07/2023 [...] partially visualized. JEROD YEAGER MD SYSTEM ID: ??[id number] Narrative 04/07/2023 4:[address] HIP [...] partially visualized. JEROD YEAGER MD SYSTEM ID: [id number] Trini [address] ORDERABLES * Adult Type and Screen (04/07/2023 2:54 PM CDT) ABO/RH(D) A NEG 04/07/2023 2:42 PM CDT RH BLOOD BANK Antibody Screen Negative Negative 04/07/2023 2:42 PM CDT RH BLOOD BANK SPECIMEN EXPIRATION DATE [id number] 04/07/2023 2:42 PM CDT RH BLOOD BANK Blood BLOOD SPECIMEN / Unknown Venipuncture / Unknown 04/07/2023 2:54 PM CDT 04/07/2023 3:02 PM CDT Rusty Schultz PA-C LAB - BLOOD B ANK TEST ORDER RH BLOOD BANK [address] [place] [address] * (ABNORMAL) CBC with platelets and [...] LAB - BLOOD O RDERABLES RH LABORATORY [facility] Lab [address] Lab (1st floor, no room number) [place] [address], [facility] [phone] * (ABNORMAL) Basic metabolic panel (BMP) (04/07/2023 2:54 PM CDT) [facility] Signature Sodium 135(L) 136 - 145 [...] LAB - BLOOD Luis M BAÑUELOS LABORATORY [facility] Acute [facility] Lab [address] Lab (1st floor, no room number) [place] [address], [facility] [phone] * Partial thromboplastin time (04/07/2023 2:54 PM CDT) aPTT 33 22 - 38 Seconds 04/07/2023 3:15 PM CDT RH LABORATORY Blood BLOOD SPECIMEN / Unknown Venipuncture / Unknown 04/07/2023 2:54 PM CDT 04/07/2023 3:02 PM CDT Rusty Schultz PA-C LAB - BLOOD O EDDA [facility] Acute Care Lab [address] Lab (1st floor, no room number) [place] [address], [facility] [phone] * (ABNORMAL) INR (04/07/2023 2:54 PM CDT) INR 1.40(H) 0.85 - 1.15 04/07/2023 3:14 PM CDT LABORATORY Blood BLOOD SPECIMEN / Unknown Venipuncture / Unknown 04/07/2023 2:54 PM CDT 04/07/2023 3:02 PM CDT Rusty Schultz PA-C LAB - BLOOD O RDERABLES [facility] Acute Care Lab [address] Lab (1st floor, no room number) [place] [address], [facility] [phone] documented in this encounter Visit Diagnoses Diagnosis [...] 2 MIN PRN, opioid reversal, Starting on [facility] 04/07/23 at 1944, Administer intravenous route [...] 2 MIN PRN, opioid reversal, Starting on [facility] 04/07/23 at 1944, Administer intramuscular if [...] analgesic side effects. Hold while on IV SPECIAL SERVICES DIRECTOR or with regular IV opioid dosing., , [...] analgesic side effects. Hold while on IV SPECIAL SERVICES DIRECTOR or with regular IV opioid dosing., , [...] 0800, Indications: RA 0805 ($Given - Provider: Arnodl Stevenson RN) 0843 ($Given - Provider: Akosua [...] to any local anesthetic or any mary graec product. Do NOT use both lidocaine intradermal/subcutaneous [...] 2 MIN PRN, opioid reversal, Starting on [facility] 04/07/23 at 1944, Administer intramuscular if [...] analgesic side effects. Hold while on IV SPECIAL SERVICES DIRECTOR or with regular IV opioid dosing., , [...] analgesic side effects. Hold while on IV SPECIAL SERVICES DIRECTOR or with regular IV opioid dosing., , [...] analgesic side effects. Hold while on IV SPECIAL SERVICES DIRECTOR or with regular IV opioid dosing., , [...] analgesic side effects. Hold while on IV SPECIAL SERVICES DIRECTOR or with regular IV opioid dosing., , [...] documented as of this encounter Care Teams Capacity Planning Analyst Relationship Specialty Start Date End Date Case Gao [address] [place] [address] PCP - General Family Medicine 01/25/21 documented as of this encounter
--- OUTSIDE RECORDS SUMMARY | 2023-09-28 14:21 | XMS_ITS | Encounter Summary ---
Author Name Unknown Organization [facility] Address [address] [place] [address]. [place] [address] Care Team Providers Care Mutuel Machine Operator Name Role Phone Sima Case Sierra Primary Care Provider [phone] Reason for Visit * Auth/Cert (Routine) Specialty Diagnoses / Procedures Referred By Konstantin katz Referred To Contact Surgery Diagnoses Primary osteoarthritis of left hip Primary osteoarthritis of left hip [M16.12] Procedures [place] TOTAL HIP ARTHROPLASTY left total hip arthroplasty [facility] [address] [place] [address] Referral ID Status Reason Start Date Expiration Date Visits Re quested Visits Authorized [id number] 1 1 Encounter Details Date Type Department Care Team (Latest Contact Info) Description 03/25/2023 5:17 AM CDT - 03/26/2023 12:01 PM CDT Hospital Encounter [facility] [address] [place] [phone] Cj Chen MD [facility] [address] [id number] Status post total hip replacement, left (Primary [...] results for input(s): POTASSIUM in the last 45885 hours. Recent Labs Lab Test 03/26/23 0936 HGB 10.2* Recent Labs Lab Test 03/26/23 0936 03/25/23 1101 INR 1.08 1.02 No results for input(s): PLT in the last 77329 hours. A/P 1. S/p left MICHELLE (PL [...] Evaluation Time OT Eval, Low Complexity Minutes (65875) 10 Therapy Certification Medical Diagnosis L MICHELLE [...] Management Self-Care/Home Mgmt/ADL, Compensatory, Meal Prep Minutes (55587) 25 Symptoms Noted During/After Treatment (Meal Preparation/Planning Training) fatigue Treatment Detail/Skilled Intervention Educated patient on AE for dressing. Patient dons lower body clothing with MOD I with exception of shoes. Patient too tired to try. Issued elastic laces and patient verbalizes technique to don/doff. Therapeutic Activities Therapeutic Activity Minutes (45552) 15 Symptoms noted during/after treatment fatigue Treatment [...] of timed and untimed services) 50 M [facility] Services OUTPATIENT OCCUPATIONAL THERAPY EVALUATION PLAN OF TREATMENT FOR OUTPATIENT REHABILITATION (COMPLETE FOR INITIAL CLAIMS ONLY) Patient's Last Name, First Name, M.I. Date of : 1960 Mora Avalos Provider's Name [facility] Onset Date: 03/25/23 Start of Care Date: 03/26/23 Type: ___PT _X_OT ___SLP Medical Diagnosis: L MICHELLE OT Diagnosis: Decreased ADL Visits from SOC: 1 _ Plan of Treatment/Functional Goals Planned Interventions: ADL retraining Goals: See Occupational Therapy Goals on Care Plan in Psychiatric electronic health record. Therapy Frequency: One time eval and treatment Predicted Duration of Therapy Intervention: 03/26/23 _ I CERTIFY THE NEED FOR THESE SERVICES FURNISHED UNDER THIS PLAN OF TREATMENT AND WHILE UNDER MY CARE . Physician Signature Date X Certification date from: 03/26/23, Certification date to: 03/26/23 Referring Physician: Cj Chen Initial Assessment See Occupational Therapy evaluation dated 03/26/23 in Psychiatric electronic health record. Associated attestation - Cj Chen MD - 03/29/2023 10:14 AM CDT Physician Attestation I agree with the information in this note. Cj Chen MD, * Karma Colón RN - 03/26/2023 6:14 AM CDT Date/Time 03/25-03/26 2910-4332 AM Patient vital signs are at baseline: [...] Ruben Avilez - 03/25/2023 6:12 AM CDT SENIOR INTERIOR DESIGNER medications completed by Medication Scribe day of [...] Medication Sig Last Dose Taking? Auth Provider Human Resource Manager End Date etanercept (ENBREL) 50 MG/ML injection [...] Patient Yes Medication history completed by: Alfonso Avielz CPhT Medication [facility] documented in this encounter H&P Notes [...] analgesics: Yes Does patient have an identified personal development coach: Yes Has goal D/C date and [...] PT - 03/25/2023 4:06 PM CDT 03/25/23 6523 Appointment Info Signing Clinician's Name / Credentials [...] Evaluation Time PT Eval, Low Complexity Minutes (09183) 10 Plan of Care Review Plan of [...] of timed and untimed services) 10 M [facility] OUTPATIENT PHYSICAL THERAPY EVALUATION PLAN OF TREATMENT FOR OUTPATIENT REHABILITATION (COMPLETE FOR INITIAL CLAIMS ONLY) Patient's Last Name, First Name, M.I. Date of : 1960 Mora Avalos Provider's Name [facility] Onset Date: 03/25/23 Start of Care [...] review and certification of the therapy plan). STIGATION CLERK Associated attestation - Cj Chen MD - 08/12/2023 8:23 AM INVESTIGATION CLERK Agree with note * Pharmacy-Anticoagulation Service - Rohini Chua, [facility] - 03/25/2023 11:23 AM CDT [...] Chen MD - 03/25/2023 11:23 AM CDT [facility] Brief Operative Note Pre-operative diagnosis: Primary osteoarthritis [...] Implant Name Type Inv. Item Serial No. Route Delivery Driver Lot No. LRB No. Used Action 6.5 mm Cannulated Screws, 16mm thread length 80mm SYNTHES 24 JAN 2021 Left 3 Explanted Titanium Washer, 13.0 mm SYNTHES 24 JAN 2021 [id number] Left 3 Explanted TRIDENT II TRITANIUM CLUSTERHOLE 52E - [id number] Total Joint Component/Insert TRIDENT II TRITANIUMCLUSTERHOLE 52E [employer] [id number] Left 1 Implanted INSERT JONATAN 36MM 0DEG X3 723-00-36E - [id number] Total Joint Component/Insert INSERT JONATAN 36MM 0DEG X3 723-00-36E [employer] [id number] Left 1 Implanted IMP STEM FEMORAL HIP STRK ACCOLADE II 132DEG SZ 5 5462-6695 - [id number] Total Joint Component/Insert IMP STEM FEMORAL HIP STRK ACCOLADE II 132DEG SZ 5 7333- 3807 [employer] [id number] Left 1 Implanted IMP HEAD FEMORAL STRK BIOLOX DELTA CERAMIC 36MM +2.5MM - [id number] Total Joint Component/Insert IMP HEAD FEMORAL STRK BIOLOX DELTA CERAMIC 36MM +2.5MM [employer] [id number] Left 1 Implanted * Op Note - Cj Chen MD - 03/25/2023 9:42 AM CDT Procedure Date: 03/25/2023 PREOPERATIVE DIAGNOSIS: Avascular necrosis, status post pinning of left femoral neck fracture. POSTOPERATIVE DIAGNOSIS: Avascular necrosis, status post pinning of left femoral neck fracture. PROCEDURES: 1. Left hip removal of hardware. 2. Left total hip arthroplasty. SURGEON: Cj Chen MD. PROFESSIONAL TUTOR: Vira Fernandes PA-C. ANESTHESIA: Spinal with sedation. [...] along the calcar. Trial reduction restored appropriate pentecostalism of leg length, offset and stability. The size 5 Accolade II 132-degree neck angle hip stem wasopened and impacted, matching the patient's knik femoral version. Multiple trial reductions were p [...] yahaira Name: MORA AVALOS MRN: [id number] Account: [id number] : 1960 Procedure Date: 03/25/2023 Document: [id number] documented in this encounter Plan of Treatment [...] MD LAB - BLOOD ORDERABL ES LABORATORY [facility] Acute Care Lab [address] 1st floor, [address] [place] [address], [facility] [phone] * (ABNORMAL) Hemoglobin (03/26/2023 9:36 AM CDT) Hemoglobin 10.2(L) 11.7 - 15.7 g/dL 03/26/2023 9:52 AM CDT LABORATORY Blood STRUCTURE OF LEFT UPPER LIMB / Unknown Venipuncture / Unknown 03/26/2023 9:36 AM CDT 03/26/2023 9:49 AM CDT Cj Chen MD LAB - BLOOD ORDERABL ES Performing Organization Address City/[facility]/ZIP Co de Phone Number LABORATORY [facility] Lab [address] 1st floor, [address] [place] [address], [place] [phone] * (ABNORMAL) Glucose (03/26/2023 9:36 AM CDT) Glucose 123(H) 70 - 99 mg/dL 03/26/2023 10:23 AM CDT LABORATORY Patient Fasting > 8hrs? No 03/26/2023 10:23 AM CDT LABORATORY Blood STRUCTURE OF LEFT UPPER LIMB / Unknown Venipuncture / Unknown 03/26/2023 9:36 AM CDT 03/26/2023 9:49 AM CDT Cj Chen MD LAB - BLOOD ORDERABL ES Performing Organization Address City/[facility]/ZIP Co de Phone Number LABORATORY [facility] Lab [address] 1st floor, [address] [place] [address], [place] [phone] * INR (03/25/2023 11:01 AM CDT) INR 1.02 0.85 - 1.15 03/25/2023 11:17 AM CDT LABORATORY Blood STRUCTURE OF LEFT UPPER LIMB / Unknown Venipuncture / Unknown 03/25/2023 11:01 AM CDT 03/25/2023 11:07 AM CDT Cj Chen MD LAB - BLOOD ORDERABL ES LABORATORY [facility] Lab [address] 1st floor, [address] [place] [address], [place] [phone] * XR Pelvis w Hip Port Left 1 View (03/25/2023 9:54 AM CDT) Anatomical Region Laterality Modality Abdomen/Pelvis Left Digital Radiogra phy Impressions 03/25/2023 10:19 AM CDT IMPRESSION: Removal of hardware and left total hip arthroplasty. Negative for postoperative purposes. HUMBLE SANTIAGO DO SYSTEM ID: ??[id number] Narrative 03/25/2023 10:19 AM CDT EXAM: XR [...] postoperative purposes. HUMBLE SANTIAGO DO SYSTEM ID: [id number] Cj Chen MD IMG DIAGNOSTIC IMAGI NG [...] analgesic side effects. Hold while on IV CENTRIFUGAL SCREEN TENDER or with regular IV opioid dosing. $Given [...] analgesic side effects. Hold while on IV CENTRIFUGAL SCREEN TENDER or with regular IV opioid dosing. $Given [...] mL (ORTHO SANDRO CUSTOM DOSE) (COMPLETED) INTRA-ARTICULAR, DEVELOPMENTAL BEHAVIORAL PHYSICIAN TO O.R., Starting on Tue03/25/23 at 0724, [...] analgesic side effects. Hold while on IV CENTRIFUGAL SCREEN TENDER or with regular IV opioid dosing. 1325 (See Alternative - Provider: Saadia Rodriguez RN) 0002 ($Given - Provider: Karma Colón RN)0403 ($Given - Provider: aKrma Colón RN)0821 (Not Given - Provider: April Alberts RN - Reason: Other - Comment: pt did not want it now)1130 ($Given - Provider: pAril Alberts RN) oxyCODONE (ROXICODONE) tablet 5 mg(Linked Group 4) 5 mg, Oral, EVERY 4 HOURS PRN, moderate pain, Starting on Tue03/25/23 at 1043, Hold oral PRN dose for analgesic side effects. Notify provider to assess for uncontrolled pain or analgesic side effects. Hold while on IV CENTRIFUGAL SCREEN TENDER or with regular IV opioid dosing. 1325 [...] analgesic side effects. Hold while on IV CENTRIFUGAL SCREEN TENDER or with regular IV opioid dosing. Or oxyCODONE (ROXICODONE) tablet 10 mgJump to med 10 mg, Oral, EVERY 4 HOURS PRN, severe pain, Starting on Tue03/25/23 at 1043, Hold oral PRN dose for analgesic side effects. Notify provider to assess for uncontrolled pain or analgesic side effects. Hold while on IV CENTRIFUGAL SCREEN TENDER or with regular IV opioid dosing. Group [...] documented as of this encounter Care Teams Mutuel Machine Operator Relationship Specialty Start Date End Date Case [address] [place] [address] PCP - General Family Medicine 01/25/21 documented as of this encounter
--- OUTSIDE RECORDS SUMMARY | 2023-09-28 14:21 | XMS_ITS | Encounter Summary ---
Author Name Unknown Organization [place] Address [facility] [place] [address] Care Team Providers Care Home Care Assistant Name Role Phone Case Gao Sierra Primary Care Provider [phone] Reason for Visit * Auth/Cert (Routine) Specialty Diagnoses / Procedures Referred By Konstantin katz Referred To Contact Surgery Diagnoses Primary osteoarthritis of left hip Primary osteoarthritis of left hip [M16.12] Procedures [place] TOTAL HIP ARTHROPLASTY left total hip arthroplasty Periop Services [address] [place] [address] Referral ID Status Reason Start Date Expiration Date Visits Re quested Visits Authorized 1 1 Encounter Details Date Type Department Care Team (Late st Contact Info) Description 03/25/2023 7:35 AM CDT Anesthesia Event [facility] Services [address] [place] [address] Trini Munoz [facility] [address] [facility] [place] [phone] Anesthesia Record Procedure Summary Procedure Name Responsible [...] recorded are pre- induction. Melissa Molina APRN SOLID WASTE LANDFILL TECHNICIAN 0736 Anesthesia Ready for Procedu re 0754 [...] procedure. Pt tolerated well. No complications. FOR [facility] ([facility] ONLY: Pain Team Contact information: please page the Pain Team Via [employer].Search Pain. During daytime hours, please page the [...] ??? CARPAL TUNNEL RELEASE RT/LT Bilateral ??? CUSTOMER SUCCESS ADVOCATE SURGERY c section x 3 ??? OPEN [...] and realistic alternatives discussed. Questions answered and patient/guest relations representative(s) expressed understanding. - Discussed: - Discussed [...] Pt tolerated well. ?? No complications. FOR [facility] ([facility] ONLY: ?? Pain Team Contact information: please page the Pain Team Via [employer]. Search Pain. During daytime hours, please page the attending first. At night please page the resident first. Trini Munoz [place] ANESTHESIA documented in this encounter Visit Diagnoses [...] documented as of this encounter Care Teams Home Care Assistant Relationship Specialty Start Date End Date Case [address] [place] [address] PCP - General Family Medicine 01/25/21 documented as of this encounter
--- OUTSIDE RECORDS SUMMARY | 2023-09-28 14:21 | XMS_ITS | Encounter Summary ---
Author Name Unknown Organization [facility] Address [address] [place] [address] Care Team Providers Care Learning And Development Specialist Name Role Phone Case Gao Primary Care Provider [phone] Reason for Visit * Reason Comments Hip Pain * Auth/Cert (Routine) Specialty Diagnoses / Procedures Referred By Konstantin t Referred To Contact Surgery Diagnoses Periprosthetic hip fracture, initial encounter Periprosthetic hip fracture, initial encounter Rh Preop/Postop [address] [place] [address] Referral ID Status Reason Start Date Expiration Date Visits Re quested Visits Authorized [id number] 1 1 Encounter Details Date Type Department Care Team (Late st Contact Info) Description 04/08/2023 9:50 AM CDT - 04/08/2023 2:15 PM CDT Surgery [facility] PeriOp Services [address] [place] [address] Fazal Ramirez MD [address] [address] LEFT TOTAL HIP ARTHROPLASTY REVISION AND OPEN [...] Primary Orthopedics 1 Vira Fernandes PA-C Assisting Storekeeper Steward Shawna barrientos 1 Rohini Beal PA-C Assisting Storekeeper Steward Authorgina comer 1 documented in this encounter [...] 04/12/2023 11:32 AM CDT Physician Discharge Summary [facility] Hospitalist Discharge Summary-[facility] Name: Mora Galeas Date of : 1960 [...] Location: OR CARPAL TUNNEL RELEASE RT/LT Bilateral METAL BONDING PRESS OPERATOR SURGERY c section x 3 OPEN REDUCTION [...] DOSE WARFARIN PAIN MANAGEMENT ADULT IP CONSULT [facility] IP CONSULT PHYSICAL THERAPY [...] your medicines These medications were sent to [place], [place] - [address] [facility] [address] [facility] [address] ferrous sulfate 325 (65 Fe) MG EC [...] return or gets worse. Follow up with reporting process consultant as instructed with ortho Other instructions: [...] partially visualized. JEROD YEAGER MD SYSTEM ID: [id number] XR Surgery RAAD L/T 5 Min Fluoro w Stills Narrative This exam was marked as non-reportable because it will not be read by a radiologist or a [facility] non-radiologist provider. XR Pelvis w Hip Port [...] alignment. Osteopenia. POLO GARCIA MD SYSTEM ID: [id number] CT Pelvis Soft Tissue w Contrast Narrative EXAM: CT PELVIS SOFT TISSUE W CONTRAST LOCATION: [facility] DATE: 04/10/2023 INDICATION: Hgb 9 >6.8 after [...] Ramirez's clinic in 2 week(s). [address]. Ramirez's day care home provider is Dede Sadler. Please contact her at [phone] to schedule an appointment[address] Dr. Ramirez sees patient's at 2 clinic locations: [facility] [address] [place] [address] [facility] - [place] [address] , [address], [place] [address] Please call the on-call phone number [phone] during evenings, nights and weekends for any [...] confirm recommendations regarding resuming her RA meds. ([phone]) 2. Disposition Anticipate d/c to home. Ortho [...] CM informed patient she was accepted at [facility], she stated she no longer wanted to go to TCU and would prefer to go home with outpatient PT. She would like to go to [facility] for PT on [facility] in [place]. She stated her can transport her and she is eager to discharge today. CM called and informed [facility] patient declined TCU placement. Hospitalist, charge nurse, and bedside nurse notified. Nesha Ross RN, BSN Inpatient Care Coordination [facility] [phone] * Trini Torres PA-C - 04/11/2023 11:12 [...] from the original note were not included. [facility] Hospitalist Progress Note Jonathan Linn M.D., M.B.A. [...] partially visualized. JEROD YEAGER MD SYSTEM ID: [id number] XR Surgery RAAD L/T 5 Min Fluoro w Stills Narrative This exam was marked as non-reportable because it will not be read by a radiologist or a [facility] non-radiologist provider. XR Pelvis w Hip Port [...] alignment. Osteopenia. POLO GARCIA MD SYSTEM ID: [id number] COVID Status: COVID-19 PCR Results 04/10/2021 09:25 [...] from the original note were not included. [facility] Hospitalist Progress Note Jonathan Linn M.D., M.B.A. [...] partially visualized. JEROD YEAGER MD SYSTEM ID: [id number] XR Surgery RAAD L/T 5 Min Fluoro w Stills Narrative This exam was marked as non-reportable because it will not be read by a radiologist or a [facility] non-radiologist provider. XR Pelvis w Hip Port [...] alignment. Osteopenia. 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 She is close with her , Dell, who is a novelty maker. Meaning, Beliefs, and Spirituality - Pt reports that her vicki is very important for her. She identifies as [facility] [employer]. She experiences God's love and justina in her life, and this is a major support for her. Mora prioritizes reading scripture and feels moved by sermons that get to the root of the Gospel message. She welcomed prayer with me. Plan of Care - I and other chaplains remain available for further support. I informed pt on how to request a hearing therapist should further support be needed. Karoline Martinez Brief Writer Negotiator Sales [facility] routine referrals *[id number] [facility] available 28/03 for emergent requests/referrals, either by paging the on-call hearing therapist or by entering an HOWIE/STAT consult in [facility] (this will also page the on-call hearing therapist). * Vira Fernandes PA-C - 04/10/2023 10:07 [...] from the original note were not included. [facility] Hospitalist Progress Note Jonathan Linn M.D., M.B.A. [...] partially visualized. JEROD YEAGER MD SYSTEM ID: [id number] XR Surgery RAAD L/T 5 Min Fluoro w Stills Narrative This exam was marked as non-reportable because it will not be read by a radiologist or a [facility] non-radiologist provider. XR Pelvis w Hip Port [...] alignment. Osteopenia. POLO GARCIA MD SYSTEM ID: [id number] COVID Status: COVID-19 PCR Results 04/10/2021 09:25 [...] flowsheet Bed Mobility Bed Mobility supine-sit;sit-supine Supine-Sit Sharp (Bed Mobility) minimum assist (75% patient effort) Sit-Supine Sharp (Bed Mobility) minimum assist (75% patient effort) [...] Evaluation Time OT Eval, Low Complexity Minutes (69442) 10 OT Goals Therapy Frequency (OT) 5 [...] Management Self-Care/Home Mgmt/ADL, Compensatory, Meal Prep Minutes (13917) 22 Treatment Detail/Skilled Intervention Pt is educated [...] Evaluation Time PT Eval, Low Complexity Minutes (32199) 10 Physical Therapy Goals PT Frequency Daily PT Predicted Duration/Target Date for Goal Attainment 04/12/23 PT Goals Transfers;Bed Mobility;Gait PT: Bed Mobility Supine to/from sit;Rolling;Modified independent PT: Transfers Supervision/stand-by assist;Sit to/from stand;Modified independent PT: Gait Supervision/stand-by assist;Greater than 200 feet;Rolling walker;Within precautions Therapeutic Procedure/Exercise Ther. Procedure: strength, endurance, ROM, flexibillity Minutes (10391) 10 Treatment Detail/Skilled Intervention Pt engaged in 10 reps LLE AP, QS, heel slide, SAQ for improved bld flow and ROM prior to OOBmobility tolerated well Symptoms Noted During/After Treatment fatigue;increased pain Therapeutic Activity Therapeutic Activities: dynamic activities to improve functional performance Minutes (45440) 10 Treatment Detail/Skilled Intervention Pt supine upon [...] BLE elevated Gait Training Gait Training Minutes (19801) 15 Symptoms Noted During/After Treatment (Gait Training) [...] from the original note were not included. [facility] Hospitalist Progress Note Jonathan Linn M.D., M.B.A. [...] partially visualized. JEROD YEAGER MD SYSTEM ID: [id number] XR Surgery RAAD L/T 5 Min Fluoro w Stills Narrative This exam was marked as non-reportable because it will not be read by a radiologist or a [facility] non-radiologist provider. XR Pelvis w Hip Port [...] alignment. Osteopenia. POLO GARCIA MD SYSTEM ID: [id number] COVID Status: COVID-19 PCR Results 04/10/2021 09:25 [...] Locke MD - 04/07/2023 3:[address] [facility] History and Physical - Hospitalist Service [...] Plan Deyanira Locke MD Hospitalist Service [facility] Securely message with [employer] (more info) Text page via [facility] Paging/Directory Chief Complaint Left hip pain in [...] SH OR CARPAL TUNNEL RELEASE RT/LT Bilateral METAL BONDING PRESS OPERATOR SURGERY c section x 3 OPEN REDUCTION [...] night she is lives with her in [facility] Family History No significant family history, [...] encounter Consult Notes * Caron Alba APRN PRODUCTION ROUSTABOUT - 04/11/2023 5:30 PM CDTAssociated Order(s): PAIN MANAGEMENT ADULT IP CONSULT Images from the original note were not included. [facility] Acute Pain Management Consultation Date of [...] Obesity, Smoker, Age>60, >2 opioid therapies, concomitant PRODUCTION ROUSTABOUT depressants, opioid naive status, or post surgical [...] she had rarely taken opiates. Per [place] LITIGATION SECRETARY review Oxycodone and Tramadol. The patient is [...] care everywhere. Last UDS - none [place] LITIGATION SECRETARY-pulled from system on 04/11/23. Last refill on [...] (Left, 01/25/2021); carpal tunnel release rt/lt (Bilateral); METAL BONDING PRESS OPERATOR surgery; Total Knee Arthroplasty (Left, 04/2021); tubal [...] partially visualized. JEROD YEAGER MD SYSTEM ID: [id number] XR Pelvis w Hip Port Left 1 View Impression IMPRESSION: Status post left total hip arthroplasty revision with longstem femoral component. Periprosthetic fracture of the proximal femur with improved alignment. Expected postsurgical soft tissue edema, subcutaneous emphysema, and skin pepe. Normal joint alignment. Osteopenia. 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 Pt would like referrals sent to [facility], referrals sent. Pt stated her will provide transportation. Pt reports being independent with IADL/ADLs and uses a rolling walker. BEN Howard, [facility] Inpatient Care Coordination [facility] [phone] * Trini Torres PA-C - 04/07/2023 2:[address] [facility] Orthopedic Consultation Mora Galeas Age: [age] year [...] She had increased pain and xrays at [facility] and was told xrays were negative. Unfortunately, patient was found to have a left hip periprosthetic fracture at her follow-up appointment yesterday at [facility] and was referred to the hospital [...] SH OR CARPAL TUNNEL RELEASE RT/LT Bilateral METAL BONDING PRESS OPERATOR SURGERY c section x 3 OPEN REDUCTION [...] Status --------- ------ CBC with platelets and d...[[id number]] Please view results for these tests on the individual orders. ABO/Rh type and screen Status: None () Narrative The following orders were created for panel order ABO/Rh type and screen. Procedure Abnormality Status --------- ------ Adult Type and Screen[[id number]] Please view results for these tests on the individual orders. Attestation: I have reviewed today's vital signs, notes, medications, labs and imaging with Dr. Nina Ramirez. Amount of time performed on this consult: 60 minutes. Trini Trores PA-C Associated attestation - Fazal Ramirez MD [...] pop in her hip. She presented to [facility] where x-rays were read as negative. She has since followed up at [facility] where new x-rays were obtained and [...] RN - 04/07/2023 3:[address] [facility] ED Nurse Handoff Report ED Chief complaint: Hip Pain . ED Diagnosis: Final diagnoses: Periprosthetic hip fracture, initial encounter Allergies: Allergies Allergen Reactions Aspirin Anaphylaxis Code Status: Full Code Activity level - Baseline/Home: independent. Activity Level - Current: in bed. Lift room needed: No. Bariatric: No Rigger Needed: No Isolation: No. Infection: Not Applicable. [...] 5 mg (5 mg Oral $Given 04/07/23 5753) Drips infusing: No For the majority of [...] Patient Only Review of External Notes: Reviewed [facility] Ortho note Dr. Cj Issa home [...] partially visualized. JEROD YEAGER MD SYSTEM ID: [id number] Report per radiology Laboratory: Labs Ordered and [...] NEG Antibody Screen Negative SPECIMEN EXPIRATION DATE [id number] ABO/RH TYPE AND SCREEN Emergency Department Course [...] emergency department. [address] Lcoke, hospitalist, regarding the patient's history and presentation [...] 2-3 Expected length of therapy undetermined. Warfarin ADMINISTRATIVE ACCOUNTANT Regimen: 2.5 mg daily Anticoagulation Dose History [...] goal(s). See goals on Care Plan in [facility] electronic health record for goal details. Goals [...] goal(s). See goals on Care Plan in [facility] electronic health record for goal details. Goals [...] analgesics: Yes Does patient have an identified volleyball assistant coach: Yes Has goal D/C date and [...] iv. Dressings-changed via MD ortho. Aquacel applied. [place] intact. CMS-denies numbness and tingling. +pp. Strong [...] analgesics: Yes Does patient have an identified volleyball assistant coach: Yes Has goal D/C date and [...] analgesics: Yes Does patient have an identified volleyball assistant coach: Yes Has goal D/C date and [...] Reason: IVC Does patient have an identified volleyball assistant coach: Yes Has goal D/C date and [...] Stevenson RN - 04/09/2023 4:00 PM CDT [employer] Web Paged Dr. Linn: Tachy HRs 130-140s, [...] 10 mg. Does patient have an identified volleyball assistant coach: Yes, was at bedside this afternoon. [...] 2-3 Warfarin Prior to Admission: Yes Warfarin ADMINISTRATIVE ACCOUNTANT Regimen: 2.5 mg daily Significant drug interactions: [...] CDT ORTHOPEDIC SURGERY OPERATIVE NOTE Mora Galeas [id number] 1960 April 08, 2023 PREOPERATIVE DIAGNOSIS: Left [...] the pre-existing implant. SURGEON: Fazal Ramirez MD ACCOUNTING ADVISORY SERVICES MANAGER: Rohini Beal PA-C; A skilled shipping and receiving assistant was necessary for this procedure for assistance with patient positioning, prepping, draping, surgical visualization, wound closure, and application of the dressing. Vira Fernandes PA-C SPECIMENS: None COMPLICATIONS: None ESTIMATED BLOOD LOSS: 350cc IMPLANTS: Implant Name Type Inv. Item Serial No. [employer] Weigher Lot No. LRB No. Used Action IMP HEAD FEMORAL STRK BIOLOX DELTA CERAMIC 36MM +2.5MM - [id number] Total Joint Component/Insert IMP HEAD FEMORAL STRK BIOLOX DELTA CERAMIC 36MM +2.5MM Mohive [id number] Left 1 Explanted IMP STEM FEMORAL HIP STRK ACCOLADE II 132DEG SZ 5 5545-1823 - [id number] Total Joint Component/Insert IMP STEM FEMORAL HIP STRK ACCOLADE II 132DEG SZ 5 3345- 7523 Mohive [id number] Left 1 Explanted FiberTape Cerclage, 2mm, 48 ARTHREX [id number] Left 3 Implanted IMP STEM FEM RSTRTN MOD BOWED CONICAL [id number] - [id number] Total Joint Component/InsertIMP STEM FEM RSTRTN MOD BOWED CONICAL [id number] Mohive [id number] Left 1 Implanted IMP INSERT ACET STRK MDM COCR HIP 0DEG 42MM SZ E [id number] - [id number] Total Joint Component/Insert IMP INSERT ACET STRK MDM COCR HIP 0DEG 42MM SZ E 6242E Mohive [id number] Left 1 Implanted IMP STEM FEM MOD REV HIP PROX BODY/BOLT 19MM +10 119 - [id number] Total Joint Component/Insert IMP STEM FEM MOD REV HIP PROX BODY/BOLT 19MM +10 119 Mohive [id number] Left 1 Implanted INSERT ACTB 42MM 28MM E HIP X3 ADM STRL [facility] 7236-2-848 - [id number] Metallic Hardware/[place] INSERT ACTB 42MM 28MM E HIP X3 ADM STRL [facility] 7236-2-848 Mohive [id number] Left 1 Implanted IMP HEAD FEMORAL STRK BIOLOX DELTA CERAMIC 28MM +4MM - [id number] Total Joint Component/Insert IMP HEAD FEMORAL STRK BIOLOX DELTA CERAMIC 28MM +4MM Mohive [id number] Left 1 Implanted FiberTape Cerclage, 2mm, 48 [id number] ARTHREX Left 1 Implanted FiberTape Cerclage, 2mm, 48 ARTHREX [id number] Left 1 Implanted PRIOR IMPLANTS: She has a [place] 52 mm Trident TriTanium cluster hole acetabular [...] pop in her hip. She presented to [facility] where x-rays were read as negative. She has since followed up at [facility] where new x-rays were obtained and [...] be loose and easilyremoved with a vice drill punch operator Revision hip arthroplasty We then proceeded with placement of a new stem. Prior to placement of the new stem, a Arthrex fibertape cerclage was placed just distal to the fracture along the femoral shaft to prevent any propagation of a femoral shaft fracture. The Where nondenominational modular implant system was utilized. The femoral shaft was reamed sequentially up to a size 19mm. Intraoperative radiographs were obtained to ensure good fit. A [id number] was selected and implanted into the femoral [...] Ramirez's clinic in [address] Ramirez's day care home provider is Dede Sadler. Please contact her at [phone] to schedule an appointment[address]. Ramirez sees patient's at 2 clinic locations: [facility] [address] [place], [place] [address] [place] [address] [facility]oped[facility] - [place] [address] , [address], [place] [address] Please call the on-call phone number [phone] during evenings, nights and weekends for any urgent needs. Prescription refills must be done during business hours by calling [phone] Fazal Ramirez MD [facility] * Plan of Care - [...] through pain Does patient have an identified volleyball assistant coach: Yes Has goal D/C date and [...] Yes Information Source(s): Patient, Hospital records, and CareEverywhere/[facility] in-person Pertinent Information: Pt recently started warfarin following surgery a couple of weeks ago - Rx states to take two 2.5 mg tabs daily (5 mg total), however pt has only been taking one 2.5 mg tab daily. Pt states has green colored tabs at home. Changes made to ADMINISTRATIVE ACCOUNTANT medication list: Added: None Deleted: None Changed: Warfarin 5 mg daily -> 2.5 mg daily Senna-doc -> PRN Allergies reviewed with patient and updates made in EHR: yes Medication History Completed By: Trini Josue RPH 04/07/2023 6:44 PM Prior to Admission medications Medication Sig Last Dose Taking? Auth Provider Shelter End Date acetaminophen (TYLENOL) 325 MG tablet [...] Locke MD LAB - BLOOD ORDERABL ES [facility] [address] (1st floor, no room number) [place] [id number], [facility] [phone] * (ABNORMAL) Hemoglobin (04/12/2023 6:41 AM CDT) Hemoglobin 7.8(L) 11.7 - 15.7 g/dL 04/12/2023 6:49 AM CDT [facility] LAB[facility]ATORY Blood STRUCTURE OF LEFT HAND / Unknown Venipuncture / Unknown 04/12/2023 6:41 AM CDT 04/12/2023 6:45 AM CDT Jonathan Linn MD LAB - BLOOD ORDERABL ES [facility] [address] Lab (1st floor, no room number) [place] [address], [facility] [phone] * (ABNORMAL) INR (04/12/2023 6:41 AM CDT) INR 1.28(H) 0.85 - 1.15 04/12/2023 6:58 AM CDT [facility] LAB[facility] Blood STRUCTURE OF LEFT HAND / Unknown Venipuncture / Unknown 04/12/2023 6:41 AM CDT 04/12/2023 6:45 AM CDT Rohini PEDERSON-Gavi LAB - BLOOD ORDERA BLES Performing Organization Address [facility] Co de Phone Number [facility] [address] Lab (1st floor, no room number) [place] [id number], [facility] [phone] * (ABNORMAL) Hemoglobin (04/11/2023 5:58 PM CDT) Hemoglobin 7.6(L) 11.7 - 15.7 g/dL 04/11/2023 6:06 PM CDT [facility] LABOR[facility] Blood STRUCTURE OF RIGHT UPPER LIMB / Unknown Venipuncture / Unknown 04/11/2023 5:58 PM CDT 04/11/2023 6:01 PM CDT Jonathan Linn MD LAB - BLOOD ORDERABL ES Performing Organization Address [facility] de Phone Number [facility] Lab [address] Lab (1st floor, no room number) [place] [id number], [facility] [phone] * (ABNORMAL) INR (04/11/2023 6:51 AM CDT) INR 1.29(H) 0.85 - 1.15 04/11/2023 7:20 AM CDT [facility] LAB[facility] Blood STRUCTURE OF RIGHT UPPER LIMB / Unknown Venipuncture / Unknown 04/11/2023 6:51 AM CDT 04/11/2023 7:03 AM CDT Rohini PEDERSON-Gavi LAB - BLOOD ORDERA BLES LABORATORY [facility] Lab [address] Lab (1st floor, no room number) [place] [address], [facility] [phone] * Platelet count (04/11/2023 6:51 AM CDT) Platelet Count 383 150 - 450 10e3/uL 04/11/2023 7:06 AM CDT [facility] LABORATORY Blood STRUCTURE OF RIGHT UPPER LIMB / Unknown Venipuncture / Unknown 04/11/2023 6:51 AM CDT 04/11/2023 7:03 AM CDT Rohini Beal PA-C LAB - BLOOD ORDERA BLES Performing Organization Address City/[facility]/ZIP Co de Phone Number LABORATORY [facility] Lab [address] Lab (1st floor, no room number) [place] [address], [facility] [phone] * (ABNORMAL) Hemoglobin (04/11/2023 6:51 AM CDT) Hemoglobin 7.7(L) 11.7 - 15.7 g/dL 04/11/2023 7:06 AM CDT [facility] LAB[facility] Blood STRUCTURE OF RIGHT UPPER LIMB / Unknown Venipuncture / Unknown 04/11/2023 6:51 AM CDT 04/11/2023 7:03 AM CDT Jonathan Linn MD LAB - BLOOD ORDERABL ES LABORATORY [facility] Lab [address] Lab (1st floor, no room number) [place] [address], [facility] [phone] * Transfuse red blood cells (unit) (04/10/2023 11:32 PM CDT) Isabel Hawthorne MD BLOOD TRANSFUSION OR DERABLES * Transfuse red blood cells (unit), 1 Units (04/10/2023 11:32 PM CDT) Isabel Hawthorne MD BLOOD TRANSFUSION OR DERABLES * Prepare red blood cells (unit) (04/10/2023 8:23 PM CDT) Blood Component Type Red Blood Cells [facility] BLOOD BANK Product Code [id number] RH BLOO D BANK Unit Status Transfused RH BLOO D BANK Unit Number [id number] RH B LOOD BANK CROSSMATCH Compatible RH BLOOD BANK CODING SYSTEM [id number] RH BLO OD BANK ISSUE DATE AND TIME [id number] RH BLOOD BANK UNIT ABO/RH A- RH BLOOD BANK UNIT TYPE ISBT 0600 RH BL OOD BANK 04/10/2023 8:23 PM CDT Isabel Hawthorne MD BLOOD BANK PRODUCT O RDERABLES Performing Organization Address [facility] Co de Phone Number BLOOD BANK [address] [place] [address] * Adult Type and Screen (04/10/2023 8:04 PM CDT) ABO/RH(D) A NEG 04/10/2023 7:13 PM CDT [facility] BLOOD BANK Antibody Screen Negative Negative 04/10/2023 7:13 PM CDT RH BLOOD BANK SPECIMEN EXPIRATION DATE [id number] 04/10/2023 7:13 PM CDT RH BLOOD BANK Blood STRUCTURE OF RIGHT UPPER LIMB / Unknown Venipuncture / Unknown 04/10/2023 8:04 PM CDT 04/10/2023 8:06 PM CDT Drake Aburto MD LAB - BLOOD BANK RENITA T ORDER Performing Organization Address [facility] Co de Phone Number BLOOD BANK [address] [place] [address], [facility] * CT Pelvis Soft Tissue w Contrast [...] CT PELVIS SOFT TISSUE W CONTRAST LOCATION: [facility] DATE: 04/10/2023 INDICATION: Hgb 9 ??>6.8 after [...] CT PELVIS SOFT TISSUE W CONTRAST [facility] CENTER DATE: 04/10/2023 INDICATION: Hgb 9 >6.8 after [...] - BLOOD ORDERABL ES Performing Organization Address [facility]/ZIP Co de Phone Number [facility] [address] Lab (1st floor, no room number) [place] [address], [facility] [phone] * (ABNORMAL) Glucose (04/10/2023 7:07 AM CDT) Glucose 108(H) 70 - 99 mg/dL 04/10/2023 7:36 AM CDT LABORATORY Blood STRUCTURE OF RIGHT UPPER LIMB / Unknown Venipuncture / Unknown 04/10/2023 7:07 AM CDT 04/10/2023 7:12 AM CDT Jonathan Linn MD LAB - BLOOD ORDERABL ES [facility] [address] Lab (1st floor, no room number) [place] [address], [facility] [phone] * (ABNORMAL) INR (04/10/2023 7:07 AM CDT) INR 1.31(H) 0.85 - 1.15 04/10/2023 7:26 AM CDT LABORATORY Blood STRUCTURE OF RIGHT UPPER LIMB / Unknown Venipuncture / Unknown 04/10/2023 7:07 AM CDT 04/10/2023 7:12 AM CDT Rohini Beal PA-C LAB - BLOOD ORDERA BLES RH LABORATORY [facility] [address] Lab (1st floor, no room number) [place] [address], [facility] [phone] * (ABNORMAL) Basic metabolic panel (04/10/2023 7:07 [...] LAB - BLOOD ORDERABL ES RH LABORATORY [facility] [address] Lab (1st floor, no room number) [place] [address], [facility] [phone] * (ABNORMAL) CBC with platelets (04/10/2023 7:07 [...] MD LAB - BLOOD ORDERABL ES LABORATORY [facility] [address] Lab (1st floor, no room number) [place] [address], [facility] [phone] * (ABNORMAL) INR (04/09/2023 7:39 AM CDT) INR 1.18(H) 0.85 - 1.15 04/09/2023 8:20 AM CDT LABORATORY Blood STRUCTURE OF RIGHT HAND / Unknown Venipuncture / Unknown 04/09/2023 7:39 AM CDT 04/09/2023 7:47 AM CDT Rohini Beal PA-C LAB - BLOOD ORDERA BLES RH LABORATORY [facility] [address] Lab (1st floor, no room number) [place] [address], [facility] [phone] * (ABNORMAL) Basic metabolic panel (04/09/2023 7:39 AM CDT) Pathologist [facility] Sodium 133(L) 136 - 145 mmol/L 04/09/2023 [...] MD LAB - BLOOD ORDERABL ES LABORATORY [facility] [address] Lab (1st floor, no room number) [place] [address], [facility] [phone] * (ABNORMAL) CBC with platelets (04/09/2023 7:39 [...] MD LAB - BLOOD ORDERABL ES LABORATORY [facility] [address] Lab (1st floor, no room number) [place] [address], [place] [phone] * (ABNORMAL) INR (04/08/2023 6:15 PM CDT) INR 1.26(H) 0.85 - 1.15 04/08/2023 6:41 PM CDT RH LABORATORY Blood STRUCTURE OF RIGHT HAND / Unknown Venipuncture / Unknown 04/08/2023 6:15 PM CDT 04/08/2023 6:28 PM CDT Rohini Beal PA-C LAB - BLOOD ORDERA BLES LABORATORY [facility] [address] [facility] floor, no room number) [place] [address], [facility] [phone] * XR Pelvis w Hip Port Left [...] alignment. Osteopenia. POLO GARCIA MD SYSTEM ID: ??[id number] Narrative 04/08/2023 4:18 PM CDT XR PELVIS [...] alignment. Osteopenia. POLO GARCIA MD SYSTEM ID: [id number] [facility]ini [facility] PA-C IMG DIAGNOSTIC PARAM GING ORDERABLES * Creatinine (04/08/2023 3:36 PM CDT) Creatinine 0.54 0.51 - 0.95 mg/dL 04/08/2023 5:00 PM CDT RH LABORATORY GFR Estimate >90 >60 mL/min/1.73 m2 04/08/2023 5:00 PM CDT RH LABORATORY Blood STRUCTURE OF RIGHT HAND / Unknown Venipuncture / Unknown 04/08/2023 3:36 PM CDT 04/08/2023 4:40 PM CDT Rohini Sampsonvernon MI-C LAB - BLOOD ORDERA BLES Performing Organization Address City/[facility]/ZIP Co de Phone Number [facility] [address] Lab (1st floor, no room number) [place] [address], [facility] [phone] * XR Surgery RAAD L/T 5 Min Fluoro w Stills (04/08/2023 2:18 PM CDT) Narrative [facility] - 04/08/2023 2:19 PM CDT This exam was marked as non-reportable because it will not be read by a radiologist or a [place] non-radiologist provider. Fazal Ramirez MD IMG DIAGNOSTIC PARAM GING ORDERABLES Performing Organization Address City/[facility]/ZIP Co de Phone Number [facility] * (ABNORMAL) INR (04/08/2023 3:57 AM CDT) INR 1.39(H) 0.85 - 1.15 04/08/2023 4:28 AM CDT RH LABORATORY Blood STRUCTURE OF RIGHT UPPER LIMB / Unknown Venipuncture / Unknown 04/08/2023 3:57 AM CDT 04/08/2023 4:17 AM CDT Deyanira Locke MD LAB - BLOOD ORDERABL ES Performing Organization Address City/[facility]/ZIP Co de Phone Number RH LABORATORY [facility] [address] Lab (1st floor, no room number) [place] [address], [facility] [phone] * (ABNORMAL) CBC with platelets (04/08/2023 3:57 [...] 3:57 AM CDT 04/08/2023 4:17 AM CDT Deynaira Locke MD LAB - BLOOD ORDERABL ES LABORATORY [facility] [address] Lab (1st floor, no room number) [place] [address], [facility] [phone] * (ABNORMAL) Basic metabolic panel (04/08/2023 3:57 AM CDT) Pathologist [facility] Sodium 136 136 - 145 [...] MD LAB - BLOOD ORDERABL ES LABORATORY [facility] [address] [facility] Lab (1st floor, no room number) [place] [address], [facility] [phone] * CT Hip Left w/o Contrast (04/07/2023 [...] partially visualized. JEROD YEAGER MD SYSTEM ID: ??[id number] Narrative 04/07/2023 4:[address] HIP [...] partially visualized. JEROD YEAGER MD SYSTEM ID: [id number] Trini Torres PA-C IMG CT ORDERABLES * Adult Type and Screen (04/07/2023 2:54 PM CDT) ABO/RH(D) A NEG 04/07/2023 2:42 PM CDT RH BLOOD BANK Antibody Screen Negative Negative 04/07/2023 2:42 PM CDT RH BLOOD BANK SPECIMEN EXPIRATION DATE [id number] 04/07/2023 2:42 PM CDT RH BLOOD BANK Blood BLOOD SPECIMEN / Unknown Venipuncture / Unknown 04/07/2023 2:54 PM CDT 04/07/2023 3:02 PM CDT Rusty Schultz PA-C LAB - BLOOD B ANK TEST ORDER Performing Organization Address City/State/[facility] Co de Phone Number BLOOD BANK [address] [place] [address] * (ABNORMAL) CBC with platelets and [...] LAB - BLOOD O RDERABLES RH LABORATORY [facility] [address] Lab (1st floor, no room number) [place] [address], [facility] [phone] * (ABNORMAL) Basic metabolic panel (BMP) (04/07/2023 [...] PA-C LAB - BLOOD O RDERABLES LABORATORY [facility] [address] Lab (1st floor, no room number) [place] [address], [facility] [phone] * Partial thromboplastin time (04/07/2023 2:54 PM CDT) aPTT 33 22 - 38 Seconds 04/07/2023 3:15 PM CDT RH LABORATORY Blood BLOOD SPECIMEN / Unknown Venipuncture / Unknown 04/07/2023 2:54 PM CDT 04/07/2023 3:02 PM CDT Rusty Schultz PA-C LAB - BLOOD O EDDA [facility] [address] Lab (1st floor, no room number) [place] [address], [facility] [phone] * (ABNORMAL) INR (04/07/2023 2:54 PM CDT) INR 1.40(H) 0.85 - 1.15 04/07/2023 3:14 PM CDT LABORATORY Blood BLOOD SPECIMEN / Unknown Venipuncture / Unknown 04/07/2023 2:54 PM CDT 04/07/2023 3:02 PM CDT Rusty Schultz PA-C LAB - BLOOD O EDDA Performing Organization Address City/[facility]/ZIP Co de Phone Number [facility] [address] Lab (1st floor, no room number) [place] [address], [facility] [phone] documented in this encounter Visit Diagnoses Diagnosis [...] 2 MIN PRN, opioid reversal, Starting on [facility] 04/07/23 at 1944, Administer intravenous route [...] 2 MIN PRN, opioid reversal, Starting on [facility] 04/07/23 at 1944, Administer intramuscular if [...] analgesic side effects. Hold while on IV ARTS EDUCATION TEACHER or with regular IV opioid dosing., , [...] analgesic side effects. Hold while on IV ARTS EDUCATION TEACHER or with regular IV opioid dosing., , [...] analgesic side effects. Hold while on IV ARTS EDUCATION TEACHER or with regular IV opioid dosing., , [...] analgesic side effects. Hold while on IV ARTS EDUCATION TEACHER or with regular IV opioid dosing., , [...] analgesic side effects. Hold while on IV ARTS EDUCATION TEACHER or with regular IV opioid dosing., , [...] analgesic side effects. Hold while on IV ARTS EDUCATION TEACHER or with regular IV opioid dosing., , [...] documented as of this encounter Care Teams Learning And Development Specialist Relationship Specialty Start Date End Date Case G[address] [place] [address] PCP - General Family Medicine 01/25/21 documented as of this encounter
--- OUTSIDE RECORDS SUMMARY | 2023-09-28 14:21 | XMS_ITS | Encounter Summary ---
Author Name Unknown Organization [facility] Address [address] [place] [address]. [place] [address] Care Team Providers Care Pricing Associate Name Role Phone GaoCase nieves Primary Care Provider [phone] Reason for Visit * Auth/Cert (Routine) Specialty Diagnoses / Procedures Referred By Konstantin katz Referred To Contact Surgery Diagnoses Periprosthetic hip fracture, initial encounter Periprosthetic hip fracture, initial encounter Rh Preop/Postop [address] [place] [address] Referral ID Status Reason Start Date Expiration Date Visits Re quested Visits Authorized [id number] 1 1 Encounter Details Date Type Department Care Team (Late st Contact Info) Description 04/08/2023 9:52 AM CDT Anesthesia Event [facility] PeriOp Services [address] [place] [address] [facility] ANESTHESIA [address] [place], [place] [address] Evelyn Sanchez APRN DIRECTOR MORTGAGE [facility] [place], [place] [address] Anesthesia Record Procedure Summary Procedure Name Responsible Anesthesiologist Anesthesia Start Time Anesthesia Stop Time LEFT TOTAL HIP ARTHROPLASTY REVISION AND OPEN REDUCTION INTERNAL FIXATION PROXIMAL FEMUR (Left: Hip) Hunter Philip MD 04/08/23 0952 04/08/23 1517 Events Date Time Event Comment 04/08/2023 0857 0913 DIRECTOR MORTGAGE Ready for Procedure 0952 An Start 0954 An Start Data 0954 AN REASSESS I attest that I have identified and re-evaluated the patient immediately before the induction of anesthesia and I am satisfied that the anesthetic plan is suitable for the patient's condition and procedure. The first vital signs recorded are pre- induction. Evelyn Sanchez APRN DIRECTOR MORTGAGE 0958 An Induction 1000 An Intubation 1001 Anesthesia Ready for Procedu re 1003 MD Present 1011 MD Present 1102 MD Present 1157 MD Present 1241 MD Present 1331 MD Present 1424 MD Present 1512 AN Extubation All extubation criteria met prior to removal. 1512 an stop data 1517 An Stop Electronically signed by Hunter Rodriguez APRN DIRECTOR MORTGAGE on April 08, 2023 3:17 PM 1517 [...] by Evelyn Fortune RN 04/12/23 1029 by Melisas Alberto RN ETT Placement Date: 04/08/23; Placement Time: 1000 (created via procedure documentation); Mask Ventilation: 1; Induction Type: Intravenous; Ease of Intubation: Easy; Technique: Video laryngoscopy; ETT Type: Single; Tube Size: 7 mm; VL Blade Size: Coello scope 3; Grade View: 1; Placement Person: DIRECTOR MORTGAGE; Attempts: 1; Depth: 22 cm 04/08/23 1000 by Evelyn Sanchez APRN DIRECTOR MORTGAGE 04/08/23 1512 by Hunter Rodriguez APRN CRNA [...] Notes * Anesthesia Postprocedure Evaluation - Hunter Philpi MD - 04/08/2023 3:40 PM CDT Patient: [...] Anesthesia Procedure Notes - Evelyn Sanchez APRN DIRECTOR MORTGAGE - 04/08/2023 10:33 AM CDTAssociated Order(s): Airway Airway Patient location during procedure: OR Procedure Start/Stop Times: 04/08/2023 10:00 AM Staff - DIRECTOR MORTGAGE: Evelyn Sanchez APRN CRNA Performed By: CRNAIndications [...] SH OR CARPAL TUNNEL RELEASE RT/LT Bilateral SALES REPRESENTATIVE CASH REGISTERS SURGERY c section x 3 OPEN REDUCTION [...] and realistic alternatives discussed. Questions answered and patient/representative personal service(s) expressed understanding. - Discussed: - Discussed with: [...] Care Transfer Note - Hunter Rodriguez APRN DIRECTOR MORTGAGE - 04/08/2023 3:17 PM CDT Patient: Mora [...] Times: 04/08/2023 10:00 AM Staff - ? DIRECTOR MORTGAGE: Evelyn Sanchez APRN CRNA ? Performed By: [...] Time: 04/08/2023 10:00 AM Hunter Philip MD [place] ANESTHESIA documented in this encounter Visit Diagnoses [...] documented as of this encounter Care Teams Pricing Associate Relationship Specialty Start Date End Date Case [address] [place] [address] PCP - General Family Medicine 01/25/21 documented as of this encounter
--- OUTSIDE RECORDS SUMMARY | 2023-09-28 14:21 | XMS_ITS | Encounter Summary ---
Author Name Unknown Organization [facility] Address [address] [place] [address] Care Team Providers Care Building Specialist Name Role Phone Case Gao Primary Care Provider [phone] Encounter Details Date Type Department Care Team [...] documented as of this encounter Care Teams Building Specialist Relationship Specialty Start Date End Date Case [address] [place] [address] PCP - General Family Medicine 01/25/21 documented as of this encounter
--- OUTSIDE RECORDS SUMMARY | 2023-09-28 14:22 | XMS_ITS | Encounter Summary ---
Author Name Unknown Organization [facility] Address [address] [place] [address] Care Team Providers Care Order Builder Name Role Phone Case Gao Sierra Primary Care Provider [phone] Reason for Visit * Auth/Cert (Routine) Specialty Diagnoses / Procedures Referred By Konstantin katz Referred To Contact Surgery Diagnoses Primary osteoarthritis of left hip Primary osteoarthritis of left hip [M16.12] Procedures MO TOTAL HIP ARTHROPLASTY left total hip arthroplasty Periop Services [address] [place] [address] Referral ID Status Reason Start Date Expiration Date Visits Re quested Visits Authorized [id number] 1 1 Encounter Details Date Type Department Care Team (Late st Contact Info) Description 03/25/2023 7:30 AM CDT - 03/25/2023 9:05 AM CDT Surgery [facility] PeriOP Services [address] [place] [address] Cj Chen MD [facility] [address] [facility] [address] [place] [address] left total hip arthroplasty with removal of [...] Primary Orthopedics 1 Vira Fernandes PA-C Assisting Senior Search Marketing Analyst Authorizat ion 1 Case Notes DANTE REVIEWED [...] results for input(s): POTASSIUM in the last 91352 hours. Recent Labs Lab Test 03/26/23 0936 HGB 10.2* Recent Labs Lab Test 03/26/23 0936 03/25/23 1101 INR 1.08 1.02 No results for input(s): PLT in the last 47562 hours. A/P 1. S/p left MICHELLE (PL [...] Evaluation Time OT Eval, Low Complexity Minutes (10766) 10 Therapy Certification Medical Diagnosis L MICHELLE [...] Management Self-Care/Home Mgmt/ADL, Compensatory, Meal Prep Minutes (11535) 25 Symptoms Noted During/After Treatment (Meal Preparation/Planning Training) fatigue Treatment Detail/Skilled Intervention Educated patient on AE for dressing. Patient dons lower body clothing with MOD I with exception of shoes. Patient too tired to try. Issued elastic laces and patient verbalizes technique to don/doff. Therapeutic Activities Therapeutic Activity Minutes (68284) 15 Symptoms noted during/after treatment fatigue Treatment [...] of timed and untimed services) 50 M [facility] OUTPATIENT OCCUPATIONAL THERAPY EVALUATION PLAN OF TREATMENT FOR OUTPATIENT REHABILITATION (COMPLETE FOR INITIAL CLAIMS ONLY) Patient's Last Name, First Name, M.I. Date of : 1960 oMra Avalos Provider's Name [facility] Onset Date: 03/25/23 Start of Care Date: 03/26/23 Type: ___PT _X_OT ___SLP Medical Diagnosis: L MICHELLE OT Diagnosis: Decreased ADL Visits from SOC: 1 _ Plan of Treatment/Functional Goals Planned Interventions: ADL retraining Goals: See Occupational Therapy Goals on Care Plan in [facility] electronic health record. Therapy Frequency: One time eval and treatment Predicted Duration of Therapy Intervention: 03/26/23 _ I CERTIFY THE NEED FOR THESE SERVICES FURNISHED UNDER THIS PLAN OF TREATMENT AND WHILE UNDER MY CARE . Physician Signature Date X Certification date from: 03/26/23, Certification date to: 03/26/23 Referring Physician: Cj Chen Initial Assessment See Occupational Therapy evaluation dated 03/26/23 in [facility] electronic health record. Associated attestation - Cj Chen MD - 03/29/2023 10:14 AM CDT Physician Attestation I agree with the information in this note. Cj Chen MD, * Karma Colón RN - 03/26/2023 6:14 AM CDT Date/Time 03/25-03/26 1713-1489 AM Patient vital signs are at baseline: [...] Ruben Avilez - 03/25/2023 6:12 AM CDT ELECTROMAGNET CRANE OPERATOR medications completed by Medication Scribe day of [...] Medication Sig Last Dose Taking? Auth Provider Halfway End Date etanercept (ENBREL) 50 MG/ML injection [...] completed by: Alfonso Avilez CPhT Medication Scribe [facility] documented in this encounter H&P Notes * [...] analgesics: Yes Does patient have an identified head strength and conditioning coach: Yes Has goal D/C date and [...] PT - 03/25/2023 4:06 PM CDT 03/25/23 1238 Appointment Info Signing Clinician's Name / Credentials [...] Evaluation Time PT Eval, Low Complexity Minutes (35802) 10 Plan of Care Review Plan of [...] (sum of timed and untimed services) 10 [facility] OUTPATIENT PHYSICAL THERAPY EVALUATION PLAN OF TREATMENT FOR OUTPATIENT REHABILITATION (COMPLETE FOR INITIAL CLAIMS ONLY) Patient's Last Name, First Name, M.I. Date of : 1960 Mora Avalos Provider's Name [facility] Onset Date: 03/25/23 Start of Care [...] review and certification of the therapy plan). KING INSTRUCTOR Associated attestation - Cj Chen MD - 08/12/2023 8:23 AM KAYAKING INSTRUCTOR Agree with note * Pharmacy-Anticoagulation Service - Rohini Chua [facility] - 03/25/2023 11:23 AM CDT [...] Chen MD - 03/25/2023 11:23 AM CDT [facility] Brief Operative Note Pre-operative diagnosis: Primary [...] Implant Name Type Inv. Item Serial No. Health And Safety Manager Lot No. LRB No. Used Action 6.5 mm Cannulated Screws, 16mm thread length 80mm [employer] 24 JAN 2021 Left 3 Explanted Titanium Washer, 13.0 mm SYNTHES 24 JAN 2021 8002 Left 3 Explanted TRIDENT II TRITANIUM CLUSTERHOLE 52E - [id number] Total Joint Component/Insert TRIDENT II TRITANIUMCLUSTERHOLE 52E [employer] [id number] Left 1 Implanted INSERT JONATAN 36MM 0DEG X3 723-00-36E - [id number] Total Joint Component/Insert INSERT JONATAN 36MM 0DEG X3 723-00-36E [employer] [id number] Left 1 Implanted IMP STEM FEMORAL HIP STRK ACCOLADE II 132DEG SZ 5 4496-3512 - [id number] Total Joint Component/Insert IMP STEM FEMORAL HIP STRK ACCOLADE II 132DEG SZ 5 7042- 7519 [employer] [id number] Left 1 Implanted IMP HEAD FEMORAL STRK BIOLOX DELTA CERAMIC 36MM +2.5MM - [id number] Total Joint Component/Insert IMP HEAD FEMORAL STRK BIOLOX DELTA CERAMIC 36MM +2.5MM [employer] [id number] Left 1 Implanted * Op Note - Cj Chen MD - 03/25/2023 9:42 AM CDT Procedure Date: 03/25/2023 PREOPERATIVE DIAGNOSIS: Avascular necrosis, status post pinning of left femoral neck fracture. POSTOPERATIVE DIAGNOSIS: Avascular necrosis, status post pinning of left femoral neck fracture. PROCEDURES: 1. Left hip removal of hardware. 2. Left total hip arthroplasty. SURGEON: Cj Chen MD. METAL BOX MAKER: Vira Fernandes PA-C. ANESTHESIA: Spinal with sedation. [...] along the calcar. Trial reduction restored appropriate confucianism of leg length, offset and stability. The size 5 Accolade II 132-degree neck angle hip stem wasopened and impacted, matching the patient's [place] femoral version. Multiple trial reductions were p [...] MT: dc Name: MORA AVALOS: -71 Account: [id number] : 1960 Procedure Date: 03/25/2023 Document: [id number] documented in this encounter Plan of Treatment [...] MD LAB - BLOOD ORDERABL ES LABORATORY [facility] Lab [address] 1st floor, [address] [place] [address], [facility] [phone] * (ABNORMAL) Hemoglobin (03/26/2023 9:36 AM CDT) Hemoglobin 10.2(L) 11.7 - 15.7 g/dL 03/26/2023 9:52 AM CDT LABORATORY Blood STRUCTURE OF LEFT UPPER LIMB / Unknown Venipuncture / Unknown 03/26/2023 9:36 AM CDT 03/26/2023 9:49 AM CDT Cj Chen MD LAB - BLOOD ORDERABL ES LABORATORY [facility] [address] 1st floor, [address] [place] [address], [facility] [phone] * (ABNORMAL) Glucose (03/26/2023 9:36 AM CDT) Glucose 123(H) 70 - 99 mg/dL 03/26/2023 10:23 AM CDT LABORATORY Patient Fasting > 8hrs? No 03/26/2023 10:23 AM CDT LABORATORY Blood STRUCTURE OF LEFT UPPER LIMB / Unknown Venipuncture / Unknown 03/26/2023 9:36 AM CDT 03/26/2023 9:49 AM CDT Cj Chen MD LAB - BLOOD ORDERABL ES LABORATORY [facility] [address] 1[address] floor, [address] [place] [address], [facility] [phone] * INR (03/25/2023 11:01 AM CDT) INR 1.02 0.85 - 1.15 03/25/2023 11:17 AM CDT LABORATORY Blood STRUCTURE OF LEFT UPPER LIMB / Unknown Venipuncture / Unknown 03/25/2023 11:01 AM CDT 03/25/2023 11:07 AM CDT Cj Chen MD LAB - BLOOD ORDERABL ES LABORATORY [facility] Lab [address] 1st floor, [address] [place] [address], [facility] [phone] * XR Pelvis w Hip Port Left 1 View (03/25/2023 9:54 AM CDT) Anatomical Region Laterality Modality Abdomen/Pelvis Left Digital Radiogra phy Impressions 03/25/2023 10:19 AM CDT IMPRESSION: Removal of hardware and left total hip arthroplasty. Negative for postoperative purposes. HUMBLE SANTIAGO DO SYSTEM ID: ??[id number] Narrative 03/25/2023 10:19 AM CDT EXAM: XR [...] postoperative purposes. HUMBLE SANTIAGO DO SYSTEM ID: [id number] Cj Chen MD IMG DIAGNOSTIC IMAGI NG [...] analgesic side effects. Hold while on IV LABORER ADJUSTABLE STEEL JOIST or with regular IV opioid dosing. $Given [...] analgesic side effects. Hold while on IV LABORER ADJUSTABLE STEEL JOIST or with regular IV opioid dosing. $Given [...] 100 mL (ORTHO SANDRO CUSTOM DOSE) INTRA-ARTICULAR, SKI LIFT ATTENDANT TO O.R., Starting on Tue03/25/23 at 0724, [...] mL (ORTHO SANDRO CUSTOM DOSE) (COMPLETED) INTRA-ARTICULAR, SKI LIFT ATTENDANT TO O.R., Starting on Tue03/25/23 at 0724, [...] analgesic side effects. Hold while on IV LABORER ADJUSTABLE STEEL JOIST or with regular IV opioid dosing. 1325 [...] analgesic side effects. Hold while on IV LABORER ADJUSTABLE STEEL JOIST or with regular IV opioid dosing. 1325 [...] analgesic side effects. Hold while on IV LABORER ADJUSTABLE STEEL JOIST or with regular IV opioid dosing. Or oxyCODONE (ROXICODONE) tablet 10 mgJump to med 10 mg, Oral, EVERY 4 HOURS PRN, severe pain, Starting on Tue03/25/23 at 1043, Hold oral PRN dose for analgesic side effects. Notify provider to assess for uncontrolled pain or analgesic side effects. Hold while on IV LABORER ADJUSTABLE STEEL JOIST or with regular IV opioid dosing. Group [...] documented as of this encounter Care Teams Order Builder Relationship Specialty Start Date End Date Case Gao [address] [place] [address] PCP - General Family Medicine 01/25/21 documented as of this encounter
--- OUTSIDE RECORDS SUMMARY | 2023-09-28 14:22 | XMS_ITS | Encounter Summary ---
Author Name Unknown Organization [facility] Address [address] [place] [address]. [place] [address] Care Team Providers Care Associate Principal Name Role Phone Case Gao Primary Care Provider [phone] Encounter Details Date Type Department Care Team ([facility] Contact Info) Description 03/15/2023 Medical Correspondence [facility] Info Mgmt [facility] [address] [place] [id number] Outside, Provider Social History Tobacco Use [...] documented as of this encounter Care Teams Associate Principal Relationship Specialty Start Date End Date Case Gao [address] [place] [address] PCP - General Family Medicine 01/25/21 documented as of this encounter
--- OUTSIDE RECORDS SUMMARY | 2023-09-28 14:22 | XMS_ITS | Encounter Summary ---
Author Name Unknown Organization [facility] Address [address] [place] [id number] Care Team Providers Care Gravity Prospecting Supervisor Name Role Phone Case Gao Primary Care Provider [phone] Encounter Details Date Type Department Care Team [...] documented as of this encounter Care Teams Gravity Prospecting Supervisor Relationship Specialty Start Date End Date Case Gao [address] [place] [address] PCP - General Family Medicine 01/25/21 documented as of this encounter
== END 2023-09-28 14:18 | disposition home or self-care (01) ==
LOC: WOUND 14:17
PROVIDERS: PCP Family Medicine; Visit Provider Surgery
DX: I87.2 Venous insufficiency (chronic) (peripheral) (principal); L97.815 Non-pressure chronic ulcer of other part of right lower leg with muscle involvement without evidence of necrosis
CPT/HCPCS: 97597

== ENCOUNTER 2023-10-05 13:45 | Outpatient (CLI) | payer BC, SELFPAY | END 2023-10-05 13:46 | disposition home or self-care (01) | LOC: WOUND 13:45 | PROVIDERS: PCP Family Medicine; Visit Provider Surgery | DX: I87.2 Venous insufficiency (chronic) (peripheral) (principal); L97.815 Non-pressure chronic ulcer of other part of right lower leg with muscle involvement without evidence of necrosis | CPT/HCPCS: 97597 ==

== ENCOUNTER 2023-10-12 13:49 | Outpatient (CLI) | payer BC, SELFPAY ==
--- OUTSIDE RECORDS SUMMARY | 2023-10-12 13:51 | XMS_ITS | Clinical Summary ---
Author Name Unknown Organization [facility] Address [place], [place] [address] Care Team Providers Care Cemetery Laborer Name Role Phone Case Gao MD Primary [...] shoulder pain 04/21/2009 1 Bulimia Nervosa in skilled nursing remission, per patient report. 10/14/2008 01/27/2021 Obesity, unspecified 11/26/2006 014 Encounters Date Type Department Care Team Description 07/18/2023 Refill [facility] [address] [facility] [place] [address] Case Gao MD Refill Request (venlafaxine (EFFEXOR) 75 mg tablet/) 07/15/2023 Telephone [facility] [address] [place] [address] Case Gao MD Medication Management (venlafaxine (EFFEXOR) 75 mg tablet) from Last 3 Months Immunizations Name Administration [...] Comments Blood Pressure 111/73 07/11/2023 7:54 AM [employer]PER[employer] Pulse 89 07/11/2023 7:54 AM [employer] Temperature 36.7 ??C (98.1 ??F) 04/13/2023 7:48 AM CD T Respiratory Rate 16 02/27/2022 11:58 AM CDT Oxygen Saturation 97% 07/11/2023 7:54 AM [employer] Inhaled Oxygen Concentration - - Weight 86.6 kg (191 lb) 07/11/2023 7:54 AM [employer] Height 169.4 cm (5' 6.69) 03/21/2023 9:18 [...] 5:55 PM 06/24/2012 4:41 PM Care Teams Cemetery Laborer Relationship Specialty Start Date End Date Case Gao MD [address] [place] [address] PCP - General 11/28/06
--- OUTSIDE RECORDS SUMMARY | 2023-10-12 13:51 | XMS_ITS | Encounter Summary ---
Author Name Unknown Organization [facility] Address [address] [address] Phone Care Team Providers Care School Psychologist Assistant Name Role Phone Unavailable Primary Care Provider [...]
--- OUTSIDE RECORDS SUMMARY | 2023-10-12 13:51 | XMS_ITS | Continuity of Care Document ---
Author Name Unknown Organization [facility] Address [address] [place] [address] Phone Care Team Providers Care Sheet Taker Name Role Phone Philippe PearlSarah barry DO [...] [facility] , [address], [place], [address], [place] tel:[phone] [facility] , No Information 4 Skemp Pearl Sarah. [address], [place], [address], [place]. tel:[phone] [facility] , [address], [place], [address], [place] tel:[phone] [facility] , No Information 3 Skemp Pearl Sarah. [address], [place], [address], [place]. tel:[phone] [facility] , [address], [place], [address], [place] tel:[phone] [facility] , No Information 3 Skemp Pearl Sarah. [address], [place], [address], [place]. tel:[phone] [facility] , [address], [place], [address], [place] tel:[phone] [facility] No Information 3 Valentina Quintero. [address], [place], [address], [place]. tel:[phone] [facility] , [address], [place], [address], [place] tel:[phone] [facility] , No Information 3 Skemp Pearl Sarah. [address], [place], [address], [place]. tel:[phone] Office/Outpa tient Visit, Est [facility] , [address], [place], [address], [place] tel:[phone] [facility] , Rheumatoid arthritis (chief complaint)Mo nitor Chronic High Risk Meds (chief complaint) RA w/ rheumatoid factor of multiple sites w/o organ involvementO ther residential (current) drug therapyOther dorsalgia 3 María Denis. [facility] [address], [place], [address], [place]. tel:[phone] , [facility] [address], [place], [address].Refer ring Provider: Adeel Tang, [facility] [address], [place], [address]. tel:[phone] [facility] , [address], [place], [address], [place] tel:[phone] [facility] No Information 2 María Denis. [facility] [address], [place], [address], [place]. tel:[phone] [facility] , [address], [place], [address], [place] tel:[phone] [facility] , No Information 2 María Denis. [facility] [address], [place], [address], [place]. tel:[phone] Office/Outpa tient Visit, Est [facility] , [address], [place], [address], [place] tel:[phone] [facility] , Rheumatoid arthritis (chief complaint)Mo nitor Chronic High Risk Meds (chief complaint) RA w/ rheumatoid factor of multiple sites w/o organ involvementO ther residential (current) drug therapy 2 María Denis. [facility] [address], [place], [address], [place]. tel:[phone] , [facility] [address], [place], [address].Refer ring Provider: Adeel Tang, [facility] [address], [place], [address]. tel:[phone] [facility] , [address], [place], [address], [place] tel:[phone] [facility] , No Information 2 María Denis. [facility] [address], [place], [address], [place]. tel:[phone] Referring Provider: Adeel Tang, [facility] [address], [place], [address]. tel:[phone] Office/Outpa tient Visit, Est [facility] , [address], [place], [address], [place] tel:[phone] [facility] , Rheumatoid arthritis (chief complaint)Mo nitor Chronic High Risk Meds (chief complaint) RA w/ rheumatoid factor of multiple sites w/o organ involvementO ther remote computer terminal operator (current) drug therapy 1 María Denis. [facility] [address], [place], [address], [place]. tel:[phone] , [facility] [address], [place], [address].Refer ring Provider: Adeel Tang, [facility] [address], [place], [address]. tel:[phone] Office/Outpa tient Visit, Est [facility] , [address], [place], [address], [place] tel:[phone] [facility] , Rheumatoid arthritis (chief complaint)Mo nitor Chronic High Risk Meds (chief complaint) AnxietyRA w/ rheumatoid factor of multiple sites w/o organ involvementO ther remote computer terminal operator (current) drug therapy 0 María Denis. [facility] [address], [place], [address], [place]. tel:[phone] , [facility] [address] [place] [address] [address], [place], [address].Refer ring Provider: Adeel Tang, [facility] [address], [place], [address]. [phone] Office/Outpa tient Visit, Est [facility] , [address], [place], [address], [place] tel:[phone] [facility] , Rheumatoid arthritis (chief complaint)Mo nitor Chronic High Risk Meds (chief complaint) AnxietyRA w/ rheumatoid factor of multiple sites w/o organ involvementO ther remote computer terminal operator (current) drug therapy 0 María Denis. [facility] [address], [place], [address], [place]. tel:[phone] , [facility] [address] [place] [address] [address], [place], [address].Refer ring Provider: Adeel Tang, [facility] [address], [place], [address]. tel:[phone] Office/Outpa tient Visit, Est [facility] , [address], [place], [address], [place] tel:[phone] [facility] , Rheumatoid arthritis (chief complaint)Mo nitor Chronic High Risk Meds (chief complaint) AnxietyRA w/ rheumatoid factor of multiple sites w/o organ involvementO ther residential (current) drug therapy 9 María Denis. [facility] [address], [place], [address], [place]. tel:[phone] , [address], [place], [address].Refer ring Provider: Adeel Tang, [facility] [address], [place], [address]. tel:[phone] Office/Outpa tient Visit, Est [facility] , [address], [place], [address], [place] tel:[phone] [facility] , Rheumatoid arthritis (chief complaint)Mo nitor Chronic High Risk Meds (chief complaint) AnxietyRA w/ rheumatoid factor of multiple sites w/o organ involvementO ther remote computer terminal operator (current) drug therapy María Denis. [facility] [address], [place], [address], [place]. tel:[phone] , [facility] [address] [place] [address] [address], [place], [address].Refer ring Provider: Adeel Tang, [facility] [address], [place], [address]. tel:[phone] Office/Outpa tient Visit, Est [facility] , [address], [place], [address], [place] tel:[phone] [facility] , Rheumatoid arthritis (chief complaint)Mo nitor Chronic High Risk Meds (chief complaint) RA w/ rheumatoid factor of multiple sites w/o organ involvementO ther remote computer terminal operator (current) drug therapyAnxie ty 201 8 María Denis. [facility] [address], [place], [address], [place]. tel:[phone] Specialist: Tim Carrasquillo, [facility] [address] [place] [address] [address], [place], [address]. tel:[phone] ring Provider: Adeel Tang, [facility] [address], [place], [address]. tel:[phone] Office/Outpa tient Visit, Est [facility] , [address], [place], [address], [place] tel:[phone] [facility] , Rheumatoid arthritis (chief complaint)Mo nitor Chronic High Risk Meds (chief complaint) RA w/ rheumatoid factor of multiple sites w/o organ involvementO ther residential (current) drug therapy 7 María Denis. [facility] [address], [place], [address], [place]. tel:[phone] Specialist: Tim Carrasquillo, [facility] [address] [place] [address] [address], [place], [address]. tel:[phone] ring Provider: Adeel Tang, [facility] [address], [place], [address]. tel:[phone] [facility] , [address], [place], [address], [place] tel:[phone] [facility] , Rheumatoid arthritis (chief complaint)Mo nitor Chronic High Risk Meds (chief complaint) RA w/ rheumatoid factor of multiple sites w/o organ involvementO ther remote computer terminal operator (current) drug therapyPain in right shoulder 7 María Denis. [facility] [address], [place], [address], [place]. tel:[phone] Specialist: Tim Carrasquillo, [facility] [address] [place] [address] [address], [place], [address]. tel:[phone] [facility] Provider: Adeel Tang, [facility] [address], [place], [address]. tel:[phone] Office/Outpa tient Visit, Est [facility] , [address], [place], [address], [place] tel:[phone] [facility] , Rheumatoid arthritis (chief complaint)Mo nitor Chronic High Risk Meds (chief complaint) RA w/ rheumatoid factor of multiple sites w/o organ involvementO ther remote computer terminal operator (current) drug therapy 6 María Denis. [facility] [address], [place], [address], [place]. tel:[phone] Specialist: Tim Carrasquillo, [address], [place], [address]. tel:[phone] [facility] Provider: Adeel Tang, [facility] [address], [place], [address]. tel:[phone] Office/Outpa tient Visit, Est [facility] , [address], [place], [address], [place] tel:[phone] [facility] , Rheumatoid arthritis (chief complaint)Mo nitor Chronic High Risk Meds (chief complaint) RA w/ rheumatoid factor of multiple sites w/o organ involvementO ther remote computer terminal operator (current) drug therapyShoul velasquez joint pain 5 María Denis. [facility] [address], [place], [address], [place]. tel:[phone] Specialist: Tim Carrasquillo, [facility] [address], [place], [address]. tel:[phone] [facility] Provider: Adeel Tang, [facility] [address], [place], [address]. tel:[phone] Office/Outpa tient Visit, Est [facility] , [address], [place], [address], [place] tel:[phone] [facility] , Rheumatoid arthritis (chief complaint)Mo nitor Chronic High Risk Meds (chief complaint) Rheumatoid arthritisThe rapeutic Drug MonitoringFi nger joint contracture María Denis. [facility] [address], [place], [address], [place]. tel:[phone] Specialist: Tim Carrasquillo, [address], [place], [address]. tel:[phone] [facility] Provider: Adeel Tang, [facility] [address], [place], [address]. tel:[phone] Office/Outpa tient Visit, Est [facility] , [address], [place], [address], [place] tel:[phone] [facility] , Rheumatoid Arthritis (chief complaint) Rheumatoid ArthritisThe rapeutic Drug MonitoringPa in in joint involving lower leg 4 María Denis. [facility] [address], [place], [address], [place]. tel:[phone] Specialist: Tim Carrasquillo, [address], [place], [address]. tel:[phone] ring Provider: Adeel Tang, [facility] [address], [place], [address]. tel:[phone] Office/Outpa tient Visit, Est [facility] , [address], [place], [address], [place] tel:[phone] [facility] , Rheumatoid Arthritis (chief complaint) Rheumatoid ArthritisThe rapeutic Drug MonitoringPa in in joint involving lower legPain in joint involving shoulder regionUnspec ified disorder of skin and subcutaneous tissue 4 María Denis. [facility] [address], [place], [address], [place]. tel:[phone] Specialist: Tim Carrasquillo [address], [place], [address]. tel:[phone] ring Provider: Adeel Tang, [facility] [address], [place], [address]. tel:[phone] Office/Outpa tient Visit, Est [facility] , [address], [place], [address], [place] tel:[phone] [facility] , Rheumatoid Arthritis (chief complaint) Rheumatoid ArthritisThe rapeutic Drug MonitoringPa in in joint involving shoulder region 4 María Denis. [facility] [address], [place], [address], [place]. tel:[phone] Specialist: Tim Carrasquillo [address], [place], [address]. tel:[phone] ring Provider: Adeel Tang, [facility] [address], [place], [address]. tel:[phone] Office/Outpa tient Visit, Est [facility] , [address], [place], [address], [place] tel:[phone] [facility] , Rheumatoid Arthritis (chief complaint) Rheumatoid ArthritisThe rapeutic Drug MonitoringLO NG-TERM (CURRENT) USE OF STEROIDS 3 María Denis. [facility] [address], [place], [address], [place]. tel:[phone] Specialist: Tim Carrasquillo, [address], [place], [place], [facility]. tel:[phone] ring Provider: Adeel Tang, [facility] [address], [place], [address]. tel:[phone] Office/Outpa tient Visit, Est [facility] , [address], [place], [address], [place] tel:[phone] [facility] , Rheumatoid Arthritis (chief complaint) Rheumatoid ArthritisThe rapeutic Drug MonitoringLO NG-TERM (CURRENT) USE OF STEROIDSCoug h 3 María Denis. [facility] [address], [place], [address], [place]. tel:[phone] Specialist: Tim Carrasquillo, [address], [place], [address]. tel:[phone] ring Provider: Adeel Tang, [facility] [address], [place], [address]. tel:[phone] Office/Outpa tient Visit, Est [facility] , [address], [place], [address], [place] tel:[phone] [facility] , Rheumatoid Arthritis (chief complaint) Rheumatoid ArthritisThe rapeutic Drug MonitoringLO NG-TERM (CURRENT) USE OF STEROIDS 3 María Denis. [facility] [address], [place], [address], [place]. tel:[phone] Specialist: Tim Carrasquillo, [facility] [address] [place] [address] [address], [place], [address]. tel:[phone] ring Provider: Adeel Tang, [facility] [address], [place], [address]. tel:[phone] Office/Outpa tient Visit, Est [facility] , [address], [place], [address], [place] tel:[phone] [facility] , Rheumatoid Arthritis (chief complaint) Rheumatoid ArthritisThe rapeutic Drug MonitoringUl cer of ankle 3 María Denis. [facility] [address], [place], [address], [place]. tel:[phone] Specialist: Tim Carrasquillo, [facility] [address] [place] [address] [address], [place], [address]. tel:[phone] ring Provider: Adeel Tang, [facility] [address], [place], [address]. tel:[phone] Office/Outpa tient Visit, Est [facility] , [address], [place], [address], [place] tel:[phone] [facility] , Rheumatoid Arthritis (chief complaint) Rheumatoid ArthritisThe rapeutic Drug MonitoringLO NG-TERM (CURRENT) USE OF STEROIDS Dec-0 2 María Adeel. [facility] [address], [place], [address], [place]. tel:[phone] Specialist: Tim Carrasquillo, [facility] [address] [place] [address] [address], [place], [place], [facility]. tel:[phone] ring Provider: Adeel Tang, [facility] [address], [place], [address]. tel:[phone] Office/Outpa tient Visit, Est [facility] , [address], [place], [address], [place] tel:[phone] [facility] , Rheumatoid Arthritis (chief complaint) Rheumatoid ArthritisLON G-TERM (CURRENT) USE OF STEROIDS Jul- 2 María Denis. [facility] [address], [place], [address], [place]. tel:[phone] Specialist: Tim Carrasquillo, [facility] [address] [place] [address] [address], [place], [address]. tel:[phone] ring Provider: Adeel Tang, [facility] [address], [place], [address]. tel:[phone] Office/Outpa tient Visit, New [facility] , [address], [place], [address], [place] tel:[phone] [facility] , Pulmonary infiltrates (chief complaint) Unspecified inflammatory polyarthropa thyLONG-TERM (CURRENT) USE OF STEROIDS 2 María Adeel. [facility] [address], [place], [address], [place]. tel:[phone] Specialist: Tim Carrasquillo, [facility] [address], [place], [address]. tel:[phone] ring Provider: Adeel Tang, [facility] , P.AJose Elias [address], [place], [address]. tel:[phone] Family History Family Member Type Diagnosis Age At Onset Sister Problem (finding) malignant neoplasm of o vary Father Problem (finding) cancer of colon Immunizations Vaccine Date Status Comments COVID-19 [employer] administered S ource: Other Provider Payers Payer name Insurance type Covered constitution party ID Authorpatt gaytanpoornima(s) [facility] [id number] Social History Type Description Quantity Date Captured [...] safety monitoring ophthalmologic evaluation. Related to Other remote computer terminal operator (current) drug therapy Continue hydroxychlo roquine [...] safety monitoring ophthalmologic evaluation. Related to Other remote computer terminal operator (current) drug therapy The patient will hav e CBC, Cr, transaminases and albumin performed every 3 months.Pursue annual safety monitoring ophthalmologic evaluation. Related to Other residential (current) drug therapy Continue hydroxychlo roquine 400 [...] safety monitoring ophthalmologic evaluation. Related to Other residential (current) drug therapy After discussion of potential [...] performed every 3 months. Related to Other residential (current) drug therapy Continue current ant i-rheumatic medications unchanged.I will consider PFT and potential update of chest imaging. 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 Related to Other residential (current) drug therapy Continue input as ne eded with her primary care provider or psychologist/psychiatrist. Related to Anxiety I again urged ruel katz to update evaluation with her primary care provider or a psychologist/psychiatrist. Related to Anxiety The patient will hav e CBC, Cr, transaminases and albumin performed every 3 months. Related to Other residential (current) drug therapy Continue current ant i-rheumatic [...] chest imaging.The patient may be moving to [facility] if her gets the new job that they anticipate. 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 Related to Other remote computer terminal operator (current) drug therapy The patient will hav e CBC, Cr, transaminases and albumin performed every 3 months. Related to Other residential (current) drug therapy Continue current ant i-rheumatic medications unchanged.The patient may be moving to [facility] if her gets the new [...] performed every 3 months. Related to Other remote computer terminal operator (current) drug therapy Continue current ant i-rheumatic [...] performed every 3 months. Related to Other residential (current) drug therapy After discussion of potential treatment options, risks and benefits, the patient and I are in agreement with pursuing local corticosteroid injection. Related to Shoulder joint pain The patient will hav e CBC, Cr, transaminases and albumin performed every 2-3 months. Related to Other remote computer terminal operator (current) drug therapy Continue current ant i-rheumatic [...]
--- OUTSIDE RECORDS SUMMARY | 2023-10-12 13:51 | XMS_ITS | Encounter Summary ---
Author Name Unknown Organization [facility] [employer] [facility] Address [address] [address] Phone Care Team Providers Care Proposal Specialist Name Role Phone Unavailable Primary Care Provider Unavailabl e Reason for Visit * Reason Comments Seizure- Prior Hx Of Encounter Details Date Type Department Care Team ([facility] st Contact Info) Description 01/12/2023 1:37 AM CDT - 01/12/2023 3:40 AM CDT Emergency [facility] Emergency Department [address] [place] [id number] Trent Augustine MD [address] [place] [id number] Status epilepticus (HCC) (Primary Dx); Acute respiratory [...] [place] HUC - 01/12/2023 2:38 AM CDT [employer] called with a no go on flight , will check with [facility] * [place] [facility]UC - 01/12/2023 2:30 AM CDT Called [employer] to see check flight status. Will call back with go or no go * [place] [facility]UC - 01/12/2023 2:23 AM CDT Called [facility] to check bed status, connected Dr. Augustine to Dr. Gilliland * Trent Augustine MD - 01/12/2023 1:56 AM CDTAssociated Order(s): Intubation; Critical Care Post-Procedure Diagnose(s): Status epilepticus (HCC); Acute respiratory failure with hypoxia (HCC) [facility] Emergency Physician Note Date: 01/12/23 Patient Name: [...] sugar was normal. Throughout the transport from [facility] where she is staying, she has [...] time ingestions of acetaminophen is available in [employer]. SALICYLATE - Normal ALCOHOL - Normal MAGNESIUM - Normal PROTIME - Normal Narrative: Suggested therapeutic INR ranges for oral anticoagulant therapy: Category INR Value Prophylaxis 2.0-3.0 Treat Thrombosis or Embolism 2.0-3.0 Prosthetic Heart Valve 2.5-3.5 C-REACTIVE PROTEIN - Normal LEVETIRACETAM ([facility] ONLY) URINE DRUG SCREEN URINALYSIS, REFLEX TO [...] or life-threatening deterioration of the following conditions: CHIEF LIFESTYLE OFFICER failure or compromise and respiratory failure Critical [...] the patient. Simultaneously, we reached out to [facility] for transfer to their ICU for status epilepticus as they have in- house continuous EEG capability and neurology coverage. Ultimately I intubated the patient with ketamine and succinylcholine, ketamine for his antiepileptic effect and succinylcholine to preserve her neurologic examination. The intubation was uncomplicated and tolerated well. I spoke with Dr. Gilliland, matzo forming machine operator at [facility], who accepts the patient for [...] intracranial hemorrhage. I have low concern for CHIEF LIFESTYLE OFFICER infection such as meningitis. Soft restraints were [...] time, the patient is being transferred to [facility]. Trent Augustine MD Emergency Medicine [...] - 8 /HPF 01/12/2023 3:48 AM CDT [facility] Urine RBC's 3-8(A) 0 - 3 /HPF 01/12/2023 3:48 AM CDT [facility] Urine Bacteria Few(A) None Seen /HPF 01/12/2023 3:48 AM CDT [facility] Urine Hyaline Cast 3-8(A) 0 - 3 /LPF 01/12/2023 3:48 AM CDT [facility] Urine Squamous Epithelial Cells Moderate /HPF 01/12/2023 3:48 AM CDT [facility] Urine (Urine Straight Catheter) Non-blood collection / Unknown 01/12/2023 3:18 AM CDT 01/12/2023 3:22 AM CDT Narrative [facility] - 01/12/2023 3:48 AM CDT Urine Culture is not indicated. Trent Augustine MD EC URINE ORDERABLES [facility] [address] * (ABNORMAL) URINALYSIS, REFLEX TO CULTURE (01/12/2023 3:18 AM CDT) Urine Color Yellow Straw, Yellow, Kassie 01/12/2023 3:29 AM CDT [facility] Urine Appearance Clear Clear 01/12/2023 3:29 AM CDT [facility] Urine Specific [place] >=1.030 1.003 - 1.035 01/12/2023 3:29 AM CDT [facility] Urine pH 5.0 5.0 - 8.0 01/12/2023 3:29 AM CDT [facility] Urine Glucose Negative Negative 01/12/2023 3:29 AM CDT [facility] Urine Ketones Negative Negative 01/12/2023 3:29 AM CDT [facility] Urine Protein 100(A) Negative, Trace mg/dL 01/12/2023 3:29 AM CDT [facility] Urine Nitrites Negative Negative 01/12/2023 3:29 AM CDT [facility] Urine Leukocyte Esterase Negative Negative 01/12/2023 3:29 AM CDT [facility] Urine (Urine Straight Catheter) Non-blood collection / Unknown 01/12/2023 3:18 AM CDT 01/12/2023 3:22 AM CDT Trent Augustine MD EC URINE ORDERABLES [facility] [address] * (ABNORMAL) URINE DRUG SCREEN (01/12/2023 3:18 AM CDT) Urine Amphetamines Screen Negative Positive cut-off concentrati on: 1000 ng/mL 01/12/2023 3:42 AM CDT [facility] Urine Barbiturates Screen Negative Positive cut-off concentrati on: 200 ng/mL 01/12/2023 3:42 AM CDT [facility] Urine Benzodiazepines Screen Positive(A) Positive cut-off concentrati on: 200 ng/mL 01/12/2023 3:42 AM CDT [facility] Urine Buprenorphine Screen Negative Positive cut-off concentrati on: 5 ng/mL 01/12/2023 3:42 AM CDT [facility] Urine Cocaine Screen Negative Positive cut-off concentrati on: 300 ng/mL 01/12/2023 3:42 AM CDT [facility] Urine Methadone Screen Negative Positive cut-off concentrati on: 300 ng/mL 01/12/2023 3:42 AM CDT [facility] Urine Opiates Screen Negative Positive cut-off concentrati on:300 ng/mL 01/12/2023 3:42 AM CDT [facility] Urine Oxycodone Screen Negative Positive cut-off concentrati on: 300 ng/mL 01/12/2023 3:42 AM CDT [facility] Urine Phencyclidine (PCP) Screen Negative Positive cut-off concentrati on: 25 ng/mL 01/12/2023 3:42 AM CDT [facility] Urine Carboxy-THC Screen Negative Positive cut-off concentrati on: 50 ng/mL 01/12/2023 3:42 AM CDT [facility] Urine (Urine Straight Catheter) Non-blood collection / Unknown 01/12/2023 3:18 AM CDT 01/12/2023 3:22 AM CDT Narrative [facility] - 01/12/2023 3:42 AM CDT Positive [...] EC URINE ORDERABLES Performing Organization Address City/State/[facility] Co de Phone Number [facility] [address] [place] [address] * Intubation (01/12/2023 3:02 AM CDT) Narrative [...] - 3.99 uIU/mL 01/12/2023 2:46 AM CDT [facility] Blood BLOOD SPECIMEN / Unknown Venipuncture / Unknown 01/12/2023 2:01 AM CDT 01/12/2023 2:04 AM CDT Trent Augustine MD EC CHEMISTRY ORDERAB LES ABN Performing Organization Address City/[facility] Co de Phone Number [facility] [address] [place] [address] * (ABNORMAL) LEVETIRACETAM ([facility] ONLY) (01/12/2023 2:01 AM CDT) Pathologist [facility] KEPPRA <2(L) 6 - 46 ug/mL 01/12/2023 3:29 AM CDT [facility] Blood BLOOD SPECIMEN / Unknown Venipuncture / Unknown 01/12/2023 2:01 AM CDT 01/12/2023 2:04 AM CDT Trent Augustine MD EC CHEMISTRY ORDERAB LES Performing Organization Address City/[facility] Co de Phone Number [facility] [address] [place] [address] * (ABNORMAL) VENOUS BLOOD GASES (01/12/2023 2:01 AM CDT) pH, Venous 7.10(LL) 7.35 - 7.45 01/12/2023 2:13 AM CDT [facility] pCO2, Venous 44 38 - 50 mmHg 01/12/2023 2:13 AM CDT [facility] Bicarbonate (HCO3), Venous 14(L) 23 - 27 mEq/L 01/12/2023 2:13 AM CDT [facility] Base Excess, Venous -16.0(L) -2.0 - 2.0 01/12/2023 2:13 AM CDT [facility] PATIENT TEMPERATURE FOR BLOOD GAS PH, PCO2, PO2 DATA CONVERSION 37.0 C 01/12/2023 2:13 AM CDT [facility] Blood BLOOD SPECIMEN / Unknown Venipuncture / Unknown 01/12/2023 2:01 AM CDT 01/12/2023 2:04 AM CDT Trent Augustine MD EC CHEMISTRY ORDERAB LES Performing Organization Address [facility] de Phone Number [facility] [address] [place] [address] * (ABNORMAL) LACTIC ACID, VENOUS (01/12/2023 2:01 AM CDT) Lactic Acid, Venous 12.6(HH) 0.5 - 2.0 mmol/L 01/12/2023 2:25 AM CDT [facility] Blood BLOOD SPECIMEN / Unknown Venipuncture / Unknown 01/12/2023 2:01 AM CDT 01/12/2023 2:04 AM CDT Trent Augustine MD EC CHEMISTRY ORDERAB LES Performing Organization Address City/[facility] Co de Phone Number [facility] [address] [place] [address] * C-REACTIVE PROTEIN (01/12/2023 2:01 AM CDT) C-Reactive Protein 0.2 0.0 - 0.8 mg/dL 01/12/2023 2:25 AM CDT [facility] Blood BLOOD SPECIMEN / Unknown Venipuncture / Unknown 01/12/2023 2:01 AM CDT 01/12/2023 2:04 AM CDT Trent Augustine MD EC CHEMISTRY ORDERAB LES [facility] [address] * (ABNORMAL) COMPREHENSIVE METABOLIC PANEL (01/12/2023 2:01 AM CDT) Pathologist [facility] Sodium 137 134 - 143 mEq/L 01/12/2023 2:25 AM CDT [facility] Potassium 4.0 3.4 - 5.1 mEq/L 01/12/2023 2:25 AM CDT [facility] Chloride 105 99 - 110 mEq/L 01/12/2023 2:25 AM CDT [facility] Carbon Dioxide 13(L) 19 - 29 mEq/L 01/12/2023 2:25 AM CDT [facility] Anion Gap 19.0(H) 3.0 - 15.0 mEq/L 01/12/2023 2:25 AM CDT [facility] Blood Urea Nitrogen 15 5 - 24 mg/dL 01/12/2023 2:25 AM CDT [facility] Creatinine 0.84 0.40 - 1.00 mg/dL 01/12/2023 2:25 AM CDT [facility] Glomerular Filtration Rate 79 >60 mL/min/1. 73 m*2 01/12/2023 2:25 AM CDT [facility] Comment:Risk of cardiovascul ar disease increases when GFR is abnormal; persistently reduced GFR values are a specific indication of CKD. This calculation uses CKD- EPI 2020 equation without adjustment for race; it has not been validated in women. Calcium 9.6 8.4 - 10.5 mg/dL 01/12/2023 2:25 AM CDT [facility] Glucose 138(H) 70 - 99 mg/dL 01/12/2023 2:25 AM CDT [facility] Protein, Total 7.6 6.0 - 8.0 g/dL 01/12/2023 2:25 AM CDT [facility] Albumin 4.2 3.5 - 5.0 g/dL 01/12/2023 2:25 AM CDT [facility] Alkaline Phosphatase 68 40 - 150 IU/L 01/12/2023 2:25 AM CDT [facility] Aspartate Aminotransferase 21 10 - 40 IU/L 01/12/2023 2:25 AM CDT [facility] Alanine Aminotransferase 18 6 - 31 IU/L 01/12/2023 2:25 AM CDT [facility] Bilirubin, Total 0.5 0.2 - 1.2 mg/dL 01/12/2023 2:25 AM CDT [facility] Blood BLOOD SPECIMEN / Unknown Venipuncture / Unknown 01/12/2023 2:01 AM CDT 01/12/2023 2:04 AM CDT Narrative [facility] - 01/12/2023 2:25 AM CDT Current ADA criteria for Glucose: ?Normal: 70-99 mg/dL ?Impaired Fasting Glucose: 100-125 mg/dL ?Diabetes Mellitus: at or above 126 mg/dL The diagnosis of diabetes must be confirmed on a subsequent day by measuring Fasting Plasma Glucose, 2-hr PG or random plasma glucose (if symptoms are present). Trent Augustine MD EC CHEMISTRY ORDERAB LES [facility] [address] * PROTIME (01/12/2023 2:01 AM CDT) INR 1.1 0.9 - 1.1 01/12/2023 2:16 AM CDT [facility] Protime 13.7 12.0 - 14.1 sec 01/12/2023 2:16 AM CDT [facility] Blood BLOOD SPECIMEN / Unknown Venipuncture / Unknown 01/12/2023 2:01 AM CDT 01/12/2023 2:04 AM CDT Narrative [facility] - 01/12/2023 2:16 AM CDT Suggested therapeutic INR ranges for oral anticoagulant therapy: Category ? INR Value Prophylaxis ?2.0-3.0 Treat Thrombosis or Embolism ? 2.0-3.0 Prosthetic Heart Valve ? 2.5-3.5 Trent Augustine MD EC HEMATOLOGY ORDERA BLES Performing Organization Address City/State/[facility] Co de Phone Number [facility] [address] [place] [address] * (ABNORMAL) HEMOGRAM/DIFFERENTIAL (01/12/2023 2:01 AM CDT) WBC 7.2 3.2 - 11.0 10*9/L 01/12/2023 2:07 AM CDT [facility] RBC 4.37 3.77 - 5.24 10*12/L 01/12/2023 2:07 AM CDT [facility] HGB 14.1 11.2 - 15.5 g/dL 01/12/2023 2:07 AM CDT [facility] HCT 42.6 34.3 - 46.0 % 01/12/2023 2:07 AM CDT [facility] MCV 97.5 81.4 - 99.0 fL 01/12/2023 2:07 AM CDT [facility] MCH 32.3 26.7 - 33.1 pg 01/12/2023 2:07 AM CDT [facility] MCHC 33.1 31.6 - 35.5 g/dL 01/12/2023 2:07 AM [facility] RDW 13.6 11.3 - 14.6 % 01/12/2023 2:07 AM [facility] PLT 218 130 - 375 10*9/L 01/12/2023 2:07 AM [facility] Neutrophils % 55.4 % 01/12/2023 2:07 AM [facility] Lymphocytes % 30.6 % 01/12/2023 2:07 AM [facility] Monocytes % 13.7 % 01/12/2023 2:07 AM [facility] Eosinophils % 0.0 % 01/12/2023 2:07 AM [facility] Basophils % 0.0 % 01/12/2023 2:07 AM [facility] Immature Granulocytes % 0.3 % 01/12/2023 2:07 AM [facility] Neutrophils Absolute 4.0 1.5 - 7.6 10*9/L 01/12/2023 2:07 AM [facility] Lymphocytes Absolute 2.2 0.8 - 3.3 10*9/L 01/12/2023 2:07 AM [facility] Monocytes Absolute 1.0(H) 0.2 - 0.9 10*9/L 01/12/2023 2:07 AM [facility] Eosinophils Absolute 0.0 0.0 - 0.4 10*9/L 01/12/2023 2:07 AM [facility] Basophils Absolute 0.0 0.0 - 0.1 10*9/L 01/12/2023 2:07 AM [facility] Immature Granulocytes Absolute 0.02 0.00 - 0.06 10*9/L 01/12/2023 2:07 AM [facility] Blood BLOOD SPECIMEN / Unknown Venipuncture / Unknown 01/12/2023 2:01 AM CDT 01/12/2023 2:04 AM CDT Trent Augustine MD EC HEMATOLOGY ORDERA BLES Performing Organization Address City/[facility]/ZIP Co de Phone Number [facility] [address] [place] [address] * MAGNESIUM (01/12/2023 2:01 AM CDT) Magnesium 2.1 1.8 - 2.7 mg/dL 01/12/2023 2:25 AM CDT [facility] Blood BLOOD SPECIMEN / Unknown Venipuncture / Unknown 01/12/2023 2:01 AM CDT 01/12/2023 2:04 AM CDT Trent Augustine MD EC CHEMISTRY ORDERAB LES Performing Organization Address [facility] Co de Phone Number [facility] [address] [place] [address] * ALCOHOL (01/12/2023 2:01 AM CDT) Alcohol <10.0 <=10.0 mg/dL 01/12/2023 2:25 AM CDT [facility] Blood BLOOD SPECIMEN / Unknown Venipuncture / Unknown 01/12/2023 2:01 AM CDT 01/12/2023 2:04 AM CDT Trent Augustine MD EC CHEMISTRY ORDERAB LES Performing Organization Address [facility] Co de Phone Number [facility] [address] [place] [address] * SALICYLATE (01/12/2023 2:01 AM CDT) Salicylate <5 <=25 mg/dL 01/12/2023 2:25 AM CDT [facility] Blood BLOOD SPECIMEN / Unknown Venipuncture / Unknown 01/12/2023 2:01 AM CDT 01/12/2023 2:04 AM CDT Trent Augustine MD EC CHEMISTRY ORDERAB LES Performing Organization Address [facility] Phone Number [facility] [address] [place] [address] * ACETAMINOPHEN (01/12/2023 2:01 AM CDT) Acetaminophen 28 <=30 ug/mL 01/12/2023 2:25 AM CDT [facility] Blood BLOOD SPECIMEN / Unknown Venipuncture / Unknown 01/12/2023 2:01 AM CDT 01/12/2023 2:04 AM CDT Narrative [facility] - 01/12/2023 2:25 AM CDT Call Poison Control Center ( ) for guidance in interpretation of results. The Yash nomogram for single, one time ingestions of acetaminophen is available in [employer]. Trent Augustine MD EC CHEMISTRY ORDERAB LES Performing Organization Address [facility] Phone Number [facility] [address] [place] [address] * Critical Care (01/12/2023 1:56 AM CDT) [...] or life-threatening deterioration of the following conditions: ??CHIEF LIFESTYLE OFFICER failure or compromise and respiratory failure ??Critical [...] EKG 12-LEAD (01/12/2023 1:56 AM CDT) Pathologist [facility] Ventricular Rate 141 BPM MUSE Atrial Rate 141 BPM MUSE P-R Interval 130 ms MUSE QRS Duration 86 ms MUSE QT 290 ms MUSE QTc 445 ms MUSE R [place] 29 degrees MUSE T [place] 71 degrees MUSE 01/12/2023 1:56 AM CDT [...] in this encounter Orders Medications Ordered That Jvaier ht Not Have Been Administered Count Last Ordered Date First Ordered Date fentaNYL BOLUS FROM BAG 25-50 mcg 1 023 midazolam (VERSED) injection 2 mg 1 023 propofol (DIPRIVAN) 10 mg/ml BOLUS FROM BAG 20-40 mg 1 01/12/2023 propofol (DIPRIVAN) 10 mg/ml BOLUS FROM BAG 22 mg 1 01/12/2023 documented in this encounter
--- OUTSIDE RECORDS SUMMARY | 2023-10-12 13:51 | XMS_ITS | Clinical Summary ---
Author Name Unknown Organization [facility] Address [address] [address] Phone Care Team Providers Care [employer] Supervisor Name Role Phone Unavailable Primary Care Provider [...]
--- OUTSIDE RECORDS SUMMARY | 2023-10-12 13:52 | XMS_ITS | Encounter Summary ---
Author Name Unknown Organization [place] Address [address] [place] [address]. [place] [address] Care Team Providers Care Project Controls Scheduler Name Role Phone GaoCase nieves Primary Care Provider [phone] Reason for Visit * Auth/Cert (Routine) Specialty Diagnoses / Procedures Referred By Konstantin katz Referred To Contact Surgery Diagnoses Periprosthetic hip fracture, initial encounter Periprosthetic hip fracture, initial encounter Rh Preop/Postop [address] [place] [address] Referral ID Status Reason Start Date Expiration Date Visits Re quested Visits Authorized [id number] 1 1 Encounter Details Date Type Department Care Team (Late st Contact Info) Description 04/08/2023 9:52 AM CDT Anesthesia Event [facility] [address] [place] [address] Hunter Philip MD [facility] [address] [place], [place] [id number] Evelyn Sanchez APRN PARTY PLAN SALESPERSON [facility] [place], [place] [address] Anesthesia Record Procedure Summary Procedure Name Responsible Anesthesiologist Anesthesia Start Time Anesthesia Stop Time LEFT TOTAL HIP ARTHROPLASTY REVISION AND OPEN REDUCTION INTERNAL FIXATION PROXIMAL FEMUR (Left: Hip) Hunter Philip MD 04/08/23 0952 04/08/23 1517 Events Date Time Event Comment 04/08/2023 0857 0913 PARTY PLAN SALESPERSON Ready for Procedure 0952 An Start 0954 An Start Data 0954 AN REASSESS I attest that I have identified and re-evaluated the patient immediately before the induction of anesthesia and I am satisfied that the anesthetic plan is suitable for the patient's condition and procedure. The first vital signs recorded are pre- induction. Evelyn Sanchez APRN [employer]Y PLAN SALESPERSON 0958 An Induction 1000 An Intubation 1001 Anesthesia Ready for Procedu re 1003 MD Present 1011 MD Present 1102 MD Present 1157 MD Present 1241 MD Present 1331 MD Present 1424 MD Present 1512 AN Extubation All extubation criteria met prior to removal. 1512 an stop data 1517 An Stop Electronically signed by Hunter Rodriguez APRN PARTY PLAN SALESPERSON on April 08, 2023 3:17 PM 1517 [...] Tube Size: 7 mm; VL Blade Size: Mckenney scope 3; Grade View: 1; Placement Person: PARTY PLAN SALESPERSON; Attempts: 1; Depth: 22 cm 04/08/23 1000 by Evelyn Sanchez APRN PARTY PLAN SALESPERSON 04/08/23 1512 by Hunter Rodriguez APRN CRNA [...] Anesthesia Procedure Notes - Evelyn Sanchez APRN PARTY PLAN SALESPERSON - 04/08/2023 10:33 AM CDTAssociated Order(s): Airway Airway Patient location during procedure: OR Procedure Start/Stop Times: 04/08/2023 10:00 AM Staff - PARTY PLAN SALESPERSON: Evelyn Sanchez APRN CRNA Performed By: CRNAIndications and Patient Condition Indications for airway management: zizy-procedural Induction type:intravenous Mask difficulty assessment: 1 - [...] SH OR CARPAL TUNNEL RELEASE RT/LT Bilateral BUFFING WHEEL FORMER MACHINE SURGERY c section x 3 OPEN [...] and realistic alternatives discussed. Questions answered and patient/employment program representative(s) expressed understanding. - Discussed: - Discussed [...] Care Transfer Note - Hunter Rodriguez APRN PARTY PLAN SALESPERSON - 04/08/2023 3:17 PM CDT Patient: Mora [...] unvalidated device data. Electronically Signed By: Hunter oRdriguez APRN CRNA April 08, 2023 3:17 PM [...] Times: 04/08/2023 10:00 AM Staff - ? PARTY PLAN SALESPERSON: Evelyn Sanchez APRN CRNA ? Performed By: [...] Time: 04/08/2023 10:00 AM Hunter Philip MD [place] ANEST[facility] documented in this encounter Visit Diagnoses [...] documented as of this encounter Care Teams Project Controls Scheduler Relationship Specialty Start Date End Date Case Gao [address] [place] [address] PCP - General Family Medicine 01/25/21 documented as of this encounter
--- OUTSIDE RECORDS SUMMARY | 2023-10-12 13:52 | XMS_ITS | Referral Summary ---
Author Name Unknown Organization [facility] Address [address] [place] [id number] Care Team Providers Care Director Of Loss Prevention Name Role Phone Case Gao Primary Care Provider [phone] Allergies Active Allergy Reactions Criticality Noted Date [...] NitoOctavia ellsworth Medical Devices Implanted Type Area Road Grader Operator Device Identifier Shelf Expiration Date Model / Serial / Lot Insert Actb 42mm 28mm E Hip X3 Adm Strl Lf Mdm 7236-2-848 - [id number] Implanted:Qty : 1 on 04/08/2023 by Fazal Ramirez MD at [facility] Metallic Hardware/An chor Left: Hip [employer] [id number] 10/07/2027 7236-2-84 8 / / [id number] Insert El 36mm 0deg X3 723-00-36e - [id number] Implanted:Qty : 1 on 03/25/2023 by Cj Chen MD at [facility] Total Joint Component/I nsert Left: Hip [employer] 12/24/2027 723-00-36 E / / [id number] Imp Head Femoral Strk Biolox Delta Ceramic 28mm +4mm - [id number] Implanted:Qty : 1 on 04/08/2023 by Fazal Ramirez MD at [facility] Total Joint Component/I nsert Left: Hip [employer] [id number] 10/31/2027 6570-0-22 8 / / [id number] Fibertape Cerclage, 2mm, 48 Implanted:Qty : 1 on 04/08/2023 by Fazal Ramirez MD at [facility] Left: Hip [employer] 11/03/2027 [id number] / / [id number] Explanted Type Area Road Grader Operator Device Identifier Shelf Expiration Date Model / Serial / Lot Imp Head Femoral Strk Biolox Delta Ceramic 36mm +2.5mm - [id number] Implanted:Qty: 1 on 03/25/2023 by Cj Chen MD at [facility] Explanted:Qty: 1 on 04/08/2023 by Fazal Ramirez MD at [facility] Total Joint Component /Insert Left: Hip [employer] 12/07/2027 6570-0-536 / / [id number] Titanium Washer, 13.0 Mm Implanted:Qty: 3 on 01/25/2021 by Cj Chen MD at [facility] Explanted:Qty: 3 on 03/25/2023 by Cj Chen MD at [facility] Left: Hip SYNTHES 419.99 24 JAN 2021 8002 Additional Health Concerns Problem Noted Date Diagnosed Date Total Joint Replacement Hip Pathway 03/15/2023 Advance Directives For more information, please contact: [phone] Latest Code Status on File Code Status [...] with patient/ legal decision maker Care Teams Director Of Loss Prevention Relationship Specialty Start Date End Date Case Gao [address] [facility] [id number] [facility] - General Family Medicine 01/25/21
--- OUTSIDE RECORDS SUMMARY | 2023-10-12 13:52 | XMS_ITS | Encounter Summary ---
Author Name Unknown Organization [facility] Address [address] [place] [address]. [place] [address] Care Team Providers Care Rack Loader Name Role Phone Sima Case Sierra Primary Care Provider Reason for Visit * Reason Comments Hip Pain * Auth/Cert (Routine) Specialty Diagnoses / Procedures Referred By Konstantin t Referred To Contact Surgery Diagnoses Periprosthetic hip fracture, initial encounter Periprosthetic hip fracture, initial encounter Rh Preop/Postop [address] [place] [address] Referral ID Status Reason Start Date Expiration Date Visits Re quested Visits Authorized [id number] 1 1 Encounter Details Date Type Department Care Team (Late st Contact Info) Description 04/07/2023 2:25 PM CDT - 04/12/2023 11:32 AM CDT Hospital Encounter [facility] [address] [place] [address] Rusty Schultz PA-C [facility] [address] [place] [address] Deyanira Locke MD [address] [address] Anemia due to blood [...] 04/12/2023 11:32 AM CDT Physician Discharge Summary [facility] Critical Care Hospitalist Discharge Summary-[facility] Name: Mora Galeas Date of : [...] Location: OR CARPAL TUNNEL RELEASE RT/LT Bilateral SECURITY SYSTEMS SALES REPRESENTATIVE SURGERY c section x 3 OPEN REDUCTION [...] DOSE WARFARIN PAIN MANAGEMENT ADULT IP CONSULT [facility] IP CONSULT PHYSICAL [...] your medicines These medications were sent to [place], [place] - [address] [facility] [address] [facility] [address] ferrous sulfate 325 (65 Fe) MG EC [...] or gets worse. Follow up with oracle identity management consultant as instructed with ortho Other instructions: [...] partially visualized. JEROD YEAGER MD SYSTEM ID: [id number] XR Surgery RAAD L/T 5 Min Fluoro w Stills Narrative This exam was marked as non-reportable because it will not be read by a radiologist or a [facility] non-radiologist provider. XR Pelvis w Hip Port [...] alignment. Osteopenia. POLO GARCIA MD SYSTEM ID: [id number] CT Pelvis Soft Tissue w Contrast Narrative EXAM: CT PELVIS SOFT TISSUE W CONTRAST LOCATION: [facility] DATE: 04/10/2023 INDICATION: Hgb 9 >6.8 [...] Ramirez's clinic in 2 week([address] Ramirez's care taker is Dede Sadler. Please contact her at [phone] to schedule an appointment[address] Dr. Ramirez sees patient's at 2 clinic locations: [facility] [address] [place] [id number] [place] [address] Orthopedics - [place] [address], [address], [place] [address] Please call the on-call phone number [phone] during evenings, nights and weekends for any [...] confirm recommendations regarding resuming her RA meds. ([phone]) 2. Disposition Anticipate d/c to home. Ortho [...] informed patient she was accepted at [facility], she stated she no longer wanted to go to TCU and would prefer to go home with outpatient PT. She would like to go to [facility] for PT on [facility] in [place]. She stated her can transport her and she is eager to discharge today. CM called and informed [facility] patient declined TCU placement. Hospitalist, charge nurse, and bedside nurse notified. Nesha Ross RN, BSN Inpatient Care Coordination [facility] [phone] * Trini Torres PA-C - 04/11/2023 11:12 [...] changed at bedside today by Dr Ramirez ([facility]) Minimal erythema of the surrounding skin. Bilateral [...] from the original note were not included. [facility] Hospitalist Progress Note Jonathan iLnn M.D., M.B.A. 04/11/2023 Reason for Stay/active problem [...] partially visualized. JEROD YEAGER MD SYSTEM ID: [id number] XR Surgery RAAD L/T 5 Min Fluoro w Stills Narrative This exam was marked as non-reportable because it will not be read by a radiologist or a [facility] non-radiologist provider. XR Pelvis w Hip Port [...] alignment. Osteopenia. POLO GARCIA MD SYSTEM ID: [id number] COVID Status: COVID-19 PCR Results 04/10/2021 09:25 [...] from the original note were not included. [facility] Hospitalist Progress Note Jonathan Linn M.D., M.B.A. [...] partially visualized. JEROD YEAGER MD SYSTEM ID: [id number] XR Surgery RAAD L/T 5 Min Fluoro w Stills Narrative This exam was marked as non-reportable because it will not be read by a radiologist or a [facility] non-radiologist provider. XR Pelvis w Hip Port [...] alignment. Osteopenia. 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 She is close with her , Dell, who is a shot blaster. Meaning, Beliefs, and Spirituality - Pt reports that her vicki is very important for her. She identifies as Holiness - [employer]. She experiences God's love and justina in her life, and this is a major support for her. Mora prioritizes reading scripture and feels moved by sermons that get to the root of the Gospel message. She welcomed prayer with me. Plan of Care - I and other chaplains remain available for further support. I informed pt on how to request a surveyor chain helper should further support be needed. Karoline Martinez Account Development Executive Carbonation Equipment Tender [facility] routine referrals *[id number] [facility] available 28/03 for emergent requests/referrals, either by paging the on-call surveyor chain helper or by entering an HOWIE/STAT consult in [facility] (this will also page the on-call surveyor chain helper). * Vira Fernandes PA-C - 04/10/2023 10:07 [...] from the original note were not included. [facility] Hospitalist Progress Note Jonathan Linn M.D., M.B.A. [...] partially visualized. JEROD YEAGER MD SYSTEM ID: [id number] XR Surgery RAAD L/T 5 Min Fluoro w Stills Narrative This exam was marked as non-reportable because it will not be read by a radiologist or a [facility] non-radiologist provider. XR Pelvis w Hip Port [...] alignment. Osteopenia. POLO GARCIA MD SYSTEM ID: [id number] COVID Status: COVID-19 PCR Results 04/10/2021 09:25 [...] interpreting information found in this chart. * Pojoa Ardon OTR - 04/09/2023 11:12 AM CDT [...] flowsheet Bed Mobility Bed Mobility supine-sit;sit-supine Supine-Sit [place] (Bed Mobility) minimum assist (75% patient effort) Sit-Supine [place] (Bed Mobility) minimum assist (75% patient effort) [...] Evaluation Time OT Elizabeth, Low Complexity Minutes (47636) 10 OT Goals Therapy Frequency (OT) 5 [...] Management Self-Care/Home Mgmt/ADL, Compensatory, Meal Prep Minutes (00923) 22 Treatment Detail/Skilled Intervention Pt is educated [...] PT - 04/09/2023 10:09 AM CDT 04/09/23 0959 Appointment Info Signing Clinician's Name / Credentials [...] Evaluation Time PT Eval, Low Complexity Minutes (38174) 10 Physical Therapy Goals PT Frequency Daily PT Predicted Duration/Target Date for Goal Attainment 04/12/23 PT Goals Transfers;Bed Mobility;Gait PT: Bed Mobility Supine to/from sit;Rolling;Modified independent PT: Transfers Supervision/stand-by assist;Sit to/from stand;Modified independent PT: Gait Supervision/stand-by assist;Greater than 200 feet;Rolling walker;Within precautions Therapeutic Procedure/Exercise Ther. Procedure: strength, endurance, ROM, flexibillity Minutes (98899) 10 Treatment Detail/Skilled Intervention Pt engaged in 10 reps LLE AP, QS, heel slide, SAQ for improved bld flow and ROM prior to OOBmobility tolerated well Symptoms Noted During/After Treatment fatigue;increased pain Therapeutic Activity Therapeutic Activities: dynamic activities to improve functional performance Minutes (83110) 10 Treatment Detail/Skilled Intervention Pt supine upon [...] BLE elevated Gait Training Gait Training Minutes (48113) 15 Symptoms Noted During/After Treatment (Gait Training) [...] from the original note were not included. [facility] Hospitalist Progress Note Jonathan Linn M.D., M.B.A. [...] partially visualized. JEROD YEAGER MD SYSTEM ID: [id number] XR Surgery RAAD L/T 5 Min Fluoro w Stills Narrative This exam was marked as non-reportable because it will not be read by a radiologist or a [facility] non-radiologist provider. XR Pelvis w Hip Port [...] alignment. Osteopenia. POLO GARCIA MD SYSTEM ID: [id number] COVID Status: COVID-19 PCR Results 04/10/2021 09:25 [...] Locke MD - 04/07/2023 3:10 PM CDT [facility] History and Physical - Hospitalist Service [...] Disposition Plan Deyanira Locke MD Hospitalist Service [facility] Securely message with [employer] (more info) Text page via [facility] Paging/Directory Chief Complaint Left hip pain [...] SH OR CARPAL TUNNEL RELEASE RT/LT Bilateral SECURITY SYSTEMS SALES REPRESENTATIVE SURGERY c section x 3 OPEN REDUCTION [...] night she is lives with her in [facility] Family History No significant family history, including [...] encounter Consult Notes * Caron Alba APRN DIRECTOR LEARNING AND DEVELOPMENT - 04/11/2023 5:30 PM CDTAssociated Order(s): PAIN MANAGEMENT ADULT IP CONSULT Images from the original note were not included. [facility] Acute Pain Management Consultation Date of [...] Obesity, Smoker, Age>60, >2 opioid therapies, concomitant DIRECTOR LEARNING AND DEVELOPMENT depressants, opioid naive status, or post surgical [...] she had rarely taken opiates. Per [place] WATER FABRICATOR OPERATOR review Oxycodone and Tramadol. The patient is [...] care everywhere. Last UDS - none [place] WATER FABRICATOR OPERATOR-pulled from system on 04/11/23. Last refill on [...] (Left, 01/25/2021); carpal tunnel release rt/lt (Bilateral); SECURITY SYSTEMS SALES REPRESENTATIVE surgery; Total Knee Arthroplasty (Left, 04/2021); tubal [...] partially visualized. JEROD YEAGER MD SYSTEM ID: [id number] XR Pelvis w Hip Port Left 1 View Impression IMPRESSION: Status post left total hip arthroplasty revision with longstem femoral component. Periprosthetic fracture of the proximal femur with improved alignment. Expected postsurgical soft tissue edema, subcutaneous emphysema, and skin pepe. Normal joint alignment. Osteopenia. POLO GARCIA MD SYSTEM ID: [id number] CT Pelvis Soft Tissue w Contrast Impression [...] you for this consultation. Caron Alba APRN, DIRECTOR LEARNING AND DEVELOPMENT, ACHPN, FAACVPR Acute Pain Team (SD/RH) 8 AM to 4:30 PM after 4:30 page rooming house operator No weekend coverage [facility] Paging/Directory Pain Securely message with the [employer] Console (learn more here) * OLIVIA PARKICA [...] Communication Assessment Patient's communication style: spoken language (Sao Tomean or Bilingual) Hearing Difficulty or Deaf: no [...] see. Pt would like referrals sent to [facility], referrals sent. Pt stated her will provide transportation. Pt reports being independent with IADL/ADLs and uses a rolling walker. [place], BEN, [facility] Inpatient Care Coordination [facility] [phone] * Trini Torres PA-C - 04/07/2023 2:50 PM CDT [facility] Orthopedic Consultation Mora Rodriguez Adal Age: [...] She had increased pain and xrays at [facility] and was told xrays were negative. Unfortunately, patient was found to have a left hip periprosthetic fracture at her follow-up appointment yesterday at [facility] and was referred to the hospital for [...] SH OR CARPAL TUNNEL RELEASE RT/LT Bilateral SECURITY SYSTEMS SALES REPRESENTATIVE SURGERY c section x 3 OPEN REDUCTION [...] Status --------- ------ CBC with platelets and d...[[id number]] Please view results for these tests on the individual orders. ABO/Rh type and screen Status: None () Narrative The following orders were created for panel order ABO/Rh type and screen. Procedure Abnormality Status --------- ------ Adult Type and Screen[[id number]] Please view results for these tests on [...] pop in her hip. She presented to [facility] where x-rays were read as negative. She has since followed up at [facility] where new x-rays were obtained and revealed [...] Smith RN - 04/07/2023 3:20 PM CDT [facility] ED Nurse Handoff Report ED Chief complaint: Hip Pain . ED Diagnosis: Final diagnoses: Periprosthetic hip fracture, initial encounter Allergies: Allergies Allergen Reactions Aspirin Anaphylaxis Code Status: Full Code Activity level - Baseline/Home: independent. Activity Level - Current: in bed. Lift room needed: No. Bariatric: No Lumber Mover Needed: No Isolation: No. Infection: Not Applicable. [...] 5 mg (5 mg Oral $Given 04/07/23 5497) Drips infusing: No For the majority of [...] Patient Only Review of External Notes: Reviewed [facility] note Dr. Cj Issa home from [...] partially visualized. JEROD YEAGER MD SYSTEM ID: [id number] Report per radiology Laboratory: Labs Ordered and [...] NEG Antibody Screen Negative SPECIMEN EXPIRATION DATE [id number] ABO/RH TYPE AND SCREEN Emergency Department Course [...] care of Dr. Locke. Impression & Plan [facility] Diagnoses: None Medical Decision Making: This [...] 2-3 Expected length of therapy undetermined. Warfarin MID TEACHER Regimen: 2.5 mg daily Anticoagulation Dose History [...] goal(s). See goals on Care Plan in [facility] electronic health record for goal [...] goal(s). See goals on Care Plan in [facility] electronic health record for goal [...] analgesics: Yes Does patient have an identified swim coach: Yes Has goal D/C date and [...] analgesics: Yes Does patient have an identified swim coach: Yes Has goal D/C date and [...] analgesics: Yes Does patient have an identified swim coach: Yes Has goal D/C date and [...] Reason: IVC Does patient have an identified swim coach: Yes Has goal D/C date and [...] Stevenson RN - 04/09/2023 4:00 PM CDT [employer] Web Paged Dr. Linn: Tachy HRs 130-140s, [...] 10 mg. Does patient have an identified swim coach: Yes, was at bedside this afternoon. Has goal D/C date and time been discussed with patient: Yes, TCU when stable. Pt A&O x4, afebrile. BP elevated. 98% RA. Capno in place. CMS intact, denies numbness and tingling, abductor pillow in place. Denies nausea and vomiting. Will continue to monitor. * Pharmacy-Anticoagulation Service - Angel Barker [facility] - 04/08/2023 7:12 PM CDT Clinical Pharmacy - Warfarin Dosing Consult Pharmacy has been consulted to manage this patient???s warfarin therapy. Indication: DVT/PE Prophylaxis Therapy Goal: INR 2-3 Warfarin Prior to Admission: Yes Warfarin MID TEACHER Regimen: 2.5 mg daily Significant drug interactions: [...] CDT ORTHOPEDIC SURGERY OPERATIVE NOTE Mora Galeas [id number] 1960 April 08, 2023 PREOPERATIVE DIAGNOSIS: Left [...] the pre-existing implant. SURGEON: Fazal Ramirez MD ELECTRICAL UNIT REBUILDER: Rohini Beal PA-C; A skilled first officer was necessary for this procedure for assistance with patient positioning, prepping, draping, surgical visualization, wound closure, and application of the dressing. Vira Fernandes PA-C SPECIMENS: None COMPLICATIONS: None ESTIMATED BLOOD LOSS: 350cc IMPLANTS: Implant Name Type Inv. Item Serial No. Nurse Practitioner Home Assessments Lot No. LRB No. Used Action IMP HEAD FEMORAL STRK BIOLOX DELTA CERAMIC 36MM +2.5MM - [id number] Total Joint Component/Insert IMP HEAD FEMORAL STRK BIOLOX DELTA CERAMIC 36MM +2.5MM Tail [id number] Left 1 Explanted IMP STEM FEMORAL HIP STRK ACCOLADE II 132DEG SZ 5 [id number] - [id number] Total Joint Component/Insert IMP STEM FEMORAL HIP STRK ACCOLADE II 132DEG SZ 5 9944- 6988 Tail [id number] Left 1 Explanted FiberTape Cerclage, 2mm, 48 ARTHREX [id number] Left 3 Implanted IMP STEM FEM RSTRTN MOD BOWED CONICAL [id number] - [id number] Total Joint Component/InsertIMP STEM FEM RSTRTN MOD BOWED CONICAL [id number] Tail [id number] Left 1 Implanted IMP INSERT ACET STRK MDM COCR HIP 0DEG 42MM SZ E [id number] - [id number] Total Joint Component/Insert IMP INSERT ACET STRK MDM COCR HIP 0DEG 42MM SZ E [id number] Tail [id number] Left 1 Implanted IMP STEM FEM MOD REV HIP PROX BODY/BOLT 19MM +10 6276--119 - [id number] Total Joint Component/Insert IMP STEM FEM MOD REV HIP PROX BODY/BOLT 19MM +10 6276--119 Tail [id number] Left 1 Implanted INSERT ACTB 42MM 28MM E HIP X3 ADM STRL [facility] 7236-2-848 - [id number] Metallic Hardware/Bartow INSERT ACTB 42MM 28MM E HIP X3 ADM STRL [facility] 7236-2-258 Tail [id number] Left 1 Implanted IMP HEAD FEMORAL STRK BIOLOX DELTA CERAMIC 28MM +4MM - [id number] Total Joint Component/Insert IMP HEAD FEMORAL STRK BIOLOX DELTA CERAMIC 28MM +4MM Tail [id number] Left 1 Implanted FiberTape Cerclage, 2mm, 48 [id number] Left 1 Implanted FiberTape Cerclage, 2mm, 48 ARTHREX [id number] Left 1 Implanted PRIOR IMPLANTS: She has a Austin 52 mm Trident TriTanium cluster hole acetabular [...] pop in her hip. She presented to [facility] where x-rays were read as negative. She has since followed up at [facility] where new x-rays were obtained and revealed [...] be loose and easilyremoved with a vice customer service and sales consultant Revision hip arthroplasty We then proceeded with placement of a new stem. Prior to placement of the new stem, a Arthrex fibertape cerclage was placed just distal to the fracture along the femoral shaft to prevent any propagation of a femoral shaft fracture. The Tech in [place] christian modular implant system was utilized. The femoral shaft was reamed sequentially up to a size 19mm. Intraoperative radiographs were obtained to ensure good fit. A [id number] was selected and implanted into the femoral [...] Ramirez's clinic in [address] Ramirez's care taker is Dede Sadler. Please contact her at [phone] to schedule an appointment. Dr. Ramirez sees patient's at 2 clinic locations: [facility] [place] [address] [place] [address] [facility] [place] [address] , [address], [place] [address] Please call the on-call phone number [phone] during evenings, nights and weekends for any urgent needs. Prescription refills must be done during business hours by calling [phone] Fazal Ramirez MD [facility] * Plan of Care - Arnold [...] through pain Does patient have an identified swim coach: Yes Has goal D/C date and [...] Yes Information Source(s): Patient, Hospital records, and [facility] in-person Pertinent Information: Pt recently started warfarin following surgery a couple of weeks ago - Rx states to take two 2.5 mg tabs daily (5 mg total), however pt has only been taking one 2.5 mg tab daily. Pt states has green colored tabs at home. Changes made to MID TEACHER medication list: Added: None Deleted: None Changed: Warfarin 5 mg daily -> 2.5 mg daily Senna-doc -> PRN Allergies reviewed with patient and updates made in EHR: yes Medication History Completed By: Trini Josue RPH 04/07/2023 6:44 PM Prior to Admission medications Medication Sig Last Dose Taking? Auth Provider Teacher Learning Disabled End Date acetaminophen (TYLENOL) 325 MG tablet [...] Locke MD LAB - BLOOD ORDERABL ES [facility] Lab [address] Lab (1st floor, no room number) [place] [id number], [facility] [phone] * (ABNORMAL) Hemoglobin (04/12/2023 6:41 AM CDT) Hemoglobin 7.8(L) 11.7 - 15.7 g/dL 04/12/2023 6:49 AM CDT [facility] Blood STRUCTURE OF LEFT HAND / Unknown Venipuncture / Unknown 04/12/2023 6:41 AM CDT 04/12/2023 6:45 AM CDT Jonathan Linn MD LAB - BLOOD ORDERABL ES [facility] Lab [address] Lab (1st floor, no room number) [place] [address], [facility] [phone] * (ABNORMAL) INR (04/12/2023 6:41 AM CDT) INR 1.28(H) 0.85 - 1.15 04/12/2023 6:58 AM CDT [facility] Blood STRUCTURE OF LEFT HAND / Unknown Venipuncture / Unknown 04/12/2023 6:41 AM CDT 04/12/2023 6:45 AM CDT Rohini Beal PA-C LAB - BLOOD ORDERA BLES LABORATORY [facility] Lab [address] Lab (1st floor, no room number) [place] [id number], [facility] [phone] * (ABNORMAL) Hemoglobin (04/11/2023 5:58 PM CDT) Hemoglobin 7.6(L) 11.7 - 15.7 g/dL 04/11/2023 6:06 PM CDT [facility] Blood STRUCTURE OF RIGHT UPPER LIMB / Unknown Venipuncture / Unknown 04/11/2023 5:58 PM CDT 04/11/2023 6:01 PM CDT Jonathan Linn MD LAB - BLOOD ORDERABL ES Performing Organization Address [facility]/ZIP Co de Phone Number [facility] Care Lab [address] Lab (1st floor, no room number) [place] [phone], [facility] [phone] * (ABNORMAL) INR (04/11/2023 6:51 AM CDT) INR 1.29(H) 0.85 - 1.15 04/11/2023 7:20 AM CDT [facility] Blood STRUCTURE OF RIGHT UPPER LIMB / Unknown Venipuncture / Unknown 04/11/2023 6:51 AM CDT 04/11/2023 7:03 AM CDT Rohini Beal PA-C LAB - BLOOD ORDERA BLES [facility] Care Lab [address] Lab (1st floor, no room number) [place] [address], [facility] [phone] * Platelet count (04/11/2023 6:51 AM CDT) Platelet Count 383 150 - 450 10e3/uL 04/11/2023 7:06 AM CDT [facility] Blood STRUCTURE OF RIGHT UPPER LIMB / Unknown Venipuncture / Unknown 04/11/2023 6:51 AM CDT 04/11/2023 7:03 AM CDT Rohini Beal PA-C LAB - BLOOD ORDERA BLES LABORATORY [facility] Lab [address] Lab (1st floor, no room number) [place] [phone], [facility] [phone] * (ABNORMAL) Hemoglobin (04/11/2023 6:51 AM CDT) Hemoglobin 7.7(L) 11.7 - 15.7 g/dL 04/11/2023 7:06 AM CDT [facility] Blood STRUCTURE OF RIGHT UPPER LIMB / Unknown Venipuncture / Unknown 04/11/2023 6:51 AM CDT 04/11/2023 7:03 AM CDT Jonathan Linn MD LAB - BLOOD ORDERABL ES Performing Organization Address [facility]/ZIP Co de Phone Number [facility] Care Lab [address] Lab (1st floor, no room number) [place] [phone], [facility] [phone] * Transfuse red blood cells (unit) (04/10/2023 11:32 PM CDT) Isabel Hawthorne MD BLOOD TRANSFUSION OR DERABLES * Transfuse red blood cells (unit), 1 Units (04/10/2023 11:32 PM CDT) Isabel Hawthorne MD BLOOD TRANSFUSION OR DERABLES * Prepare red blood cells (unit) (04/10/2023 8:23 PM CDT) Blood Component Type Red Blood Cells [facility] BLOOD BANK Product Code [id number] RH BLOO D BANK Unit Status Transfused RH BLOO D BANK Unit Number [id number] RH B LOOD BANK CROSSMATCH Compatible RH BLOOD BANK CODING SYSTEM [id number] RH BLO OD BANK ISSUE DATE AND TIME [id number] RH BLOOD BANK UNIT ABO/RH A- RH BLOOD BANK UNIT TYPE ISBT 0600 RH BL OOD BANK 04/10/2023 8:23 PM CDT Isabel Hawthorne MD BLOOD BANK PRODUCT O RDERABLES Performing Organization Address City/[facility]/ZIP Co de Phone Number [facility] BLOOD BANK [address] [place] [address], [facility] * Adult Type and Screen (04/10/2023 8:04 PM CDT) ABO/RH(D) A NEG 04/10/2023 7:13 PM CDT [facility] BLOOD BANK Antibody Screen Negative Negative 04/10/2023 7:13 PM CDT RH BLOOD BANK SPECIMEN EXPIRATION DATE [id number] 04/10/2023 7:13 PM CDT [facility] BLOOD BANK Blood STRUCTURE OF RIGHT UPPER LIMB / Unknown Venipuncture / Unknown 04/10/2023 8:04 PM CDT 04/10/2023 8:06 PM CDT Drake Aburto MD LAB - BLOOD BANK RENITA T ORDER Performing Organization Address [facility] Co de Phone Number [facility] BLOOD BANK [address] [place] [address], [facility] H[facility] * CT Pelvis Soft Tissue w Contrast [...] CT PELVIS SOFT TISSUE W CONTRAST LOCATION: [facility] DATE: 04/10/2023 INDICATION: Hgb 9 ??>6.8 [...] CT PELVIS SOFT TISSUE W CONTRAST LOCATION: [facility] DATE: 04/10/2023 INDICATION: Hgb 9 >6.8 [...] Linn MD LAB - BLOOD ORDERABL ES [facility] Lab [address] Lab (1st floor, no room number) [place] [address], [facility] [phone] * (ABNORMAL) Glucose (04/10/2023 7:07 AM CDT) Glucose 108(H) 70 - 99 mg/dL 04/10/2023 7:36 AM CDT [facility] Blood STRUCTURE OF RIGHT UPPER LIMB / Unknown Venipuncture / Unknown 04/10/2023 7:07 AM CDT 04/10/2023 7:12 AM CDT Jonathan Linn MD LAB - BLOOD ORDERABL ES [facility] Lab [address] Lab (1st floor, no room number) [place] [address], [place] [phone] * (ABNORMAL) INR (04/10/2023 7:07 AM CDT) INR 1.31(H) 0.85 - 1.15 04/10/2023 7:26 AM CDT [facility] Blood STRUCTURE OF RIGHT UPPER LIMB / Unknown Venipuncture / Unknown 04/10/2023 7:07 AM CDT 04/10/2023 7:12 AM CDT Rohini Beal PA-C LAB - BLOOD ORDERA BLES LABORATORY [facility] Lab [address] Lab (1st floor, no room number) [place] [address], [place] [phone] * (ABNORMAL) Basic metabolic panel (04/10/2023 7:07 [...] MD LAB - BLOOD ORDERABL ES LABORATORY [facility] Lab [address] Lab (1st floor, no room number) [place] [address], [place] [phone] * (ABNORMAL) CBC with platelets (04/10/2023 7:07 [...] MD LAB - BLOOD ORDERABL ES LABORATORY [facility] Lab [address] Lab (1st floor, no room number) [place] [address], [facility] [phone] * (ABNORMAL) INR (04/09/2023 7:39 AM CDT) INR 1.18(H) 0.85 - 1.15 04/09/2023 8:20 AM CDT [facility] Blood STRUCTURE OF RIGHT HAND / Unknown Venipuncture / Unknown 04/09/2023 7:39 AM CDT 04/09/2023 7:47 AM CDT Rohini Beal PA-C LAB - BLOOD ORDERA BLES LABORATORY [facility] Lab [address] Lab (1st floor, no room number) [place] [address], [facility] [phone] * (ABNORMAL) Basic metabolic panel (04/09/2023 7:39 [...] MD LAB - BLOOD ORDERABL ES LABORATORY [facility] Lab [address] Lab (1st floor, no room number) [place] [address], [facility] [phone] * (ABNORMAL) CBC with platelets (04/09/2023 7:39 [...] LAB - BLOOD ORDERABL ES [facility] Lab [address] Lab (1st floor, no room number) [place] [address], [facility] [phone] * (ABNORMAL) INR (04/08/2023 6:15 PM CDT) INR 1.26(H) 0.85 - 1.15 04/08/2023 6:41 PM CDT [facility] Blood STRUCTURE OF RIGHT HAND / Unknown Venipuncture / Unknown 04/08/2023 6:15 PM CDT 04/08/2023 6:28 PM CDT Rohini Beal PA-C LAB - BLOOD ORDERA BLES LABORATORY [facility] Lab [address] Lab (1st floor, no room number) [place] [address], [facility] [phone] * XR Pelvis w Hip Port Left [...] alignment. Osteopenia. POLO GARCIA MD SYSTEM ID: ??[id number] Narrative 04/08/2023 4:18 PM CDT XR PELVIS [...] alignment. Osteopenia. POLO GARCIA MD SYSTEM ID: [id number] Rohini Beal PA-C IMG DIAGNOSTIC PARAM GING [...] - BLOOD ORDERA BLES Performing Organization Address [facility]/ZIP Co de Phone Number [facility] Lab [email or web address] Lab (1st floor, no room number) [place] [address], [facility] [phone] * XR Surgery RAAD L/T 5 Min Fluoro w Stills (04/08/2023 2:18 PM CDT) Narrative [facility] - 04/08/2023 2:19 PM CDT This exam was marked as non-reportable because it will not be read by a radiologist or a [place] non-radiologist provider. Fazal Ramirez MD IMG DIAGNOSTIC PARAM GING ORDERABLES Performing Organization Address [facility]/[place]UST de Phone Number [facility] * (ABNORMAL) INR (04/08/2023 3:57 AM CDT) INR 1.39(H) 0.85 - 1.15 04/08/2023 4:28 AM CDT [facility] Blood STRUCTURE OF RIGHT UPPER LIMB / Unknown Venipuncture / Unknown 04/08/2023 3:57 AM CDT 04/08/2023 4:17 AM CDT Deyanira Locke MD LAB - BLOOD ORDERABL ES Performing Organization Address [facility] Co de Phone Number [facility] Lab [email or web address] Lab (1st floor, no room number) [place] [address], [facility] [phone] * (ABNORMAL) CBC with platelets (04/08/2023 3:57 [...] LAB - BLOOD ORDERABL ES [facility] LAB[facility]AT[facility] Lab [address] [facility] Lab (1st floor, no room number) [place] [address], [facility] [phone] * (ABNORMAL) Basic metabolic panel (04/08/2023 3:57 AM CDT) Pathologist [facility] Sodium 136 136 - 145 mmol/L 04/08/2023 [...] MD LAB - BLOOD ORDERABL ES LABORATORY [facility] Lab [address] [facility] Lab (1st floor, no room number) [place] [address], [facility] [phone] * CT Hip Left w/o Contrast (04/07/2023 [...] partially visualized. JEROD YEAGER MD SYSTEM ID: ??[id number] Narrative 04/07/2023 4:[address] HIP [...] partially visualized. JEROD YEAGER MD SYSTEM ID: [id number] Trini A[address] CT ORDERABLES * Adult Type and Screen (04/07/2023 2:54 PM CDT) ABO/RH(D) A NEG 04/07/2023 2:42 PM CDT RH BLOOD BANK Antibody Screen Negative Negative 04/07/2023 2:42 PM CDT RH BLOOD BANK SPECIMEN EXPIRATION DATE [id number] 04/07/2023 2:42 PM CDT RH BLOOD BANK Blood BLOOD SPECIMEN / Unknown Venipuncture / Unknown 04/07/2023 2:54 PM CDT 04/07/2023 3:02 PM CDT Rusty Schultz PA-C LAB - BLOOD B ANK TEST ORDER RH BLOOD BANK [address] [place] [address] * (ABNORMAL) CBC with platelets [...] LAB - BLOOD O RDERABLES RH LABORATORY [facility] Lab [address] Lab (1st floor, no room number) [place] [address], [facility] [phone] * (ABNORMAL) Basic metabolic panel (BMP) (04/07/2023 2:54 PM CDT) [facility] Signature Sodium 135(L) 136 - 145 mmol/L [...] LAB - BLOOD Luis M BAÑUELOS LABORATORY [facility] Lab [address] Lab (1st floor, no room number) [place] [address], [facility] [phone] * Partial thromboplastin time (04/07/2023 2:54 PM CDT) aPTT 33 22 - 38 Seconds 04/07/2023 3:15 PM CDT [facility] LAB[facility] Blood BLOOD SPECIMEN / Unknown Venipuncture / Unknown 04/07/2023 2:54 PM CDT 04/07/2023 3:02 PM CDT Rusty Schultz PA-C LAB - BLOOD O EDDA [facility] Lab [address] Lab (1st floor, no room number) [place] [address], [facility] [phone] * (ABNORMAL) INR (04/07/2023 2:54 PM CDT) INR 1.40(H) 0.85 - 1.15 04/07/2023 3:14 PM CDT LABORATORY Blood BLOOD SPECIMEN / Unknown Venipuncture / Unknown 04/07/2023 2:54 PM CDT 04/07/2023 3:02 PM CDT Rusty Schultz PA-C LAB - BLOOD O RDERABLES [facility] Lab [address] Lab (1st floor, no room number) [place] [address], [facility] [phone] documented in this encounter Visit Diagnoses Diagnosis [...] 2 MIN PRN, opioid reversal, Starting on [facility] 04/07/23 at 1944, Administer intravenous route [...] 2 MIN PRN, opioid reversal, Starting on [facility] 04/07/23 at 1944, Administer intramuscular if [...] analgesic side effects. Hold while on IV PATTERN CHANGER or with regular IV opioid dosing., , [...] analgesic side effects. Hold while on IV PATTERN CHANGER or with regular IV opioid dosing., , [...] Montoya, SRAVANI) 0843 ($Given - Provider: Akosua Trhasher, SRAVANI)194 (Not Given - Provider: Elizabeth Deleon, [...] 2 MIN PRN, opioid reversal, Starting on [facility] 04/07/23 at 1944, Administer intramuscular if [...] analgesic side effects. Hold while on IV PATTERN CHANGER or with regular IV opioid dosing., , [...] analgesic side effects. Hold while on IV PATTERN CHANGER or with regular IV opioid dosing., , [...] analgesic side effects. Hold while on IV PATTERN CHANGER or with regular IV opioid dosing., , [...] analgesic side effects. Hold while on IV PATTERN CHANGER or with regular IV opioid dosing., , [...] documented as of this encounter Care Teams Rack Loader Relationship Specialty Start Date End Date Case Gao [address] [place] [address] PCP - General Family Medicine 01/25/21 documented as of this encounter
--- OUTSIDE RECORDS SUMMARY | 2023-10-12 13:52 | XMS_ITS | Clinical Summary ---
Author Name Unknown Organization [place] Address [address] [place] [address] Care Team Providers Care Sales And Leasing Agent Name Role Phone Case Gao Primary Care Provider [phone] Allergies Active Allergy Reactions Criticality Noted Date [...] Octavia Beauchamp Medical Devices Implanted Type Area Makeup Editor Device Identifier Shelf Expiration Date Model / Serial / Lot Insert Actb 42mm 28mm E Hip X3 Adm Strl Lf Mdm 7236-2-848 - [id number] Implanted:Qty : 1 on 04/08/2023 by Fazal Ramirez MD at [facility] Metallic Hardware/An chor Left: Hip [employer] [id number] 10/07/2027 7236-2-84 8 / / [id number] Insert El 36mm 0deg X3 723-00-36e - [id number] Implanted:Qty : 1 on 03/25/2023 by Cj Chen MD at [facility] Total Joint Component/I nsert Left: Hip [employer] 12/24/2027 723-00-36 E / / [id number] Imp Head Femoral Strk Biolox Delta Ceramic 28mm +4mm - [id number] Implanted:Qty : 1 on 04/08/2023 by Fazal Ramirez MD at [facility] Total Joint Component/I nsert Left: Hip [employer] [id number] 10/31/2027 6570-0-22 8 / / [id number] Fibertape Cerclage, 2mm, 48 Implanted:Qty : 1 on 04/08/2023 by Fazal Ramirez MD at [facility] Left: Hip [employer] 11/03/2027 AR-7268 / / [id number] Explanted Type Area Makeup Editor Device Identifier Shelf Expiration Date Model / Serial / Lot Imp Head Femoral Strk Biolox Delta Ceramic 36mm +2.5mm - [id number] Implanted:Qty: 1 on 03/25/2023 by Cj Chen MD at [facility] Explanted:Qty: 1 on 04/08/2023 by Fazal Ramirez MD at [facility] Total Joint Component /Insert Left: Hip [employer] 12/07/2027 6570-0-536 / / [id number] Titanium Washer, 13.0 Mm Implanted:Qty: 3 on 01/25/2021 by Cj Chen MD at [facility] Explanted:Qty: 3 on 03/25/2023 by Cj Chen MD at [facility] Left: Hip SYNTHES 419.99 24 JAN 2021 8002 Additional Health Concerns Problem Noted Date Diagnosed Date Total Joint Replacement Hip Pathway 03/15/2023 Advance Directives For more information, please contact: [phone] Latest Code Status on File Code Status [...] with patient/ legal decision maker Care Teams Sales And Leasing Agent Relationship Specialty Start Date End Date Case G[address] [place] [address] PCP - General Family Medicine 01/25/21
--- OUTSIDE RECORDS SUMMARY | 2023-10-12 13:53 | XMS_ITS | Encounter Summary ---
Author Name Unknown Organization [place] Address [address] [place] [address] Care Team Providers Care Manager Port Name Role Phone Case Gao Sierra Primary Care Provider [phone] Reason for Visit * Auth/Cert (Routine) Specialty Diagnoses / Procedures Referred By Konstantin katz Referred To Contact Surgery Diagnoses Primary osteoarthritis of left hip Primary osteoarthritis of left hip [M16.12] Procedures ID TOTAL HIP ARTHROPLASTY left total hip arthroplasty [facility] [address], [address] [place] [address] Referral ID Status Reason Start Date Expiration Date Visits Re quested Visits Authorized [id number] 1 1 Encounter Details Date Type Department Care Team (Late st Contact Info) Description 03/25/2023 7:35 AM CDT Anesthesia Event [facility] [address] [place] [address] Trini Munoz [facility] [address] [facility] [place] [id number] Anesthesia Record Procedure Summary Procedure Name Responsible [...] recorded are pre- induction. Melissa Molina APRN SPIN TABLE OPERATOR 0736 Anesthesia Ready for Procedu re 0754 [...] Needle Length (Inches): 3.5 Spinal Needle Type: Besty-Sidney Introducer used Introducer: 20 G # of [...] procedure. Pt tolerated well. No complications. FOR [facility] ([facility]) ONLY: Pain Team Contact information: please page the Pain Team Via [employer] Pain. During daytime hours, please page the [...] ??? CARPAL TUNNEL RELEASE RT/LT Bilateral ??? ENROBER TENDER SURGERY c section x 3 ??? OPEN [...] and realistic alternatives discussed. Questions answered and patient/event marketing representative(s) expressed understanding. - Discussed: - Discussed [...] Pt tolerated well. ?? No complications. [facility] ([facility]) ONLY: ?? Pain Team Contact information: please page the Pain Team Via [employer] Pain. During daytime hours, please page the attending first. At night please page the resident first. Trini Munoz ID ANESTHESIA documented in this encounter Visit Diagnoses [...] documented as of this encounter Care Teams Manager Port Relationship Specialty Start Date End Date Case Gao [address] [place] [address] PCP - General Family Medicine 01/25/21 documented as of this encounter
--- OUTSIDE RECORDS SUMMARY | 2023-10-12 13:53 | XMS_ITS | Encounter Summary ---
Author Name Unknown Organization [facility] Address [address] [place] [address] Care Team Providers Care Intake Clerk Name Role Phone Case Gao Primary Care Provider [phone] Reason for Visit * Reason Comments Hip Pain * Auth/Cert (Routine) Specialty Diagnoses / Procedures Referred By Konstantin t Referred To Contact Surgery Diagnoses Periprosthetic hip fracture, initial encounter Periprosthetic hip fracture, initial encounter Rh Preop/Postop [address] [place] [address] Referral ID Status Reason Start Date Expiration Date Visits Re quested Visits Authorized [id number] 1 1 Encounter Details Date Type Department Care Team (Late st Contact Info) Description 04/08/2023 9:50 AM CDT - 04/08/2023 2:15 PM CDT Surgery [facility] PeriOp Services [address] [place] [address] Fazal Ramirez MD [address] [address] LEFT TOTAL HIP ARTHROPLASTY REVISION AND OPEN [...] Primary Orthopedics 1 Vira Fernandes PA-C Assisting Shafting Cleaner Shawna barrientos 1 Rohini Beal PA-C Assisting Shafting Cleaner Authorgina comer 1 documented in this encounter [...] 04/12/2023 11:32 AM CDT Physician Discharge Summary [facility] Hospitalist Discharge Summary-[facility] Name: Mora Galeas Date of : [...] Location: OR CARPAL TUNNEL RELEASE RT/LT Bilateral KNIFEMAN SURGERY c section x 3 OPEN REDUCTION [...] DOSE WARFARIN PAIN MANAGEMENT ADULT IP CONSULT [facility] IP CONSULT PHYSICAL THERAPY ADULT [...] your medicines These medications were sent to [place], [place] - [address] [facility] [address] [facility] [address] ferrous sulfate 325 (65 Fe) MG EC [...] return or gets worse. Follow up with sr risk management consultant as instructed with ortho Other [...] partially visualized. JEROD YEAGER MD SYSTEM ID: [id number] XR Surgery RAAD L/T 5 Min Fluoro w Stills Narrative This exam was marked as non-reportable because it will not be read by a radiologist or a [facility] non-radiologist provider. XR Pelvis w Hip Port [...] alignment. Osteopenia. POLO GARCIA MD SYSTEM ID: [id number] CT Pelvis Soft Tissue w Contrast Narrative EXAM: CT PELVIS SOFT TISSUE W CONTRAST LOCATION: [facility] DATE: 04/10/2023 INDICATION: Hgb 9 >6.8 [...] Ramirez's clinic in 2 week([address] Ramirez's body care manager is Dede Sadler. Please contact her at [phone] to schedule an appointment[address] Dr. Ramirez sees patient's at 2 clinic locations: [facility] [address] [place] [address] [facility] [place] [address] , [address], [place] [address] Please call the on-call phone number [phone] during evenings, nights and weekends for any [...] confirm recommendations regarding resuming her RA meds. ([phone]) 2. Disposition Anticipate d/c to home. Ortho [...] CM informed patient she was accepted at [facility], she stated she no longer wanted to go to TCU and would prefer to go home with outpatient PT. She would like to go to [facility] for PT on [facility] in [place]. She stated her can transport her and she is eager to discharge today. CM called and informed [facility] patient declined TCU placement. Hospitalist, charge nurse, and bedside nurse notified. Nesha Ross RN, BSN Inpatient Care Coordination [facility] [phone] * Trini Torres PA-C - 04/11/2023 11:12 [...] from the original note were not included. [facility] Hospitalist Progress Note Jonathan Linn M.D., [...] partially visualized. JEROD YEAGER MD SYSTEM ID: [id number] XR Surgery RAAD L/T 5 Min Fluoro w Stills Narrative This exam was marked as non-reportable because it will not be read by a radiologist or a [facility] non-radiologist provider. XR Pelvis w Hip Port [...] alignment. Osteopenia. POLO GARCIA MD SYSTEM ID: [id number] COVID Status: COVID-19 PCR Results 04/10/2021 09:25 [...] from the original note were not included. [facility] Hospitalist Progress Note Jonathan Linn M.D., [...] partially visualized. JEROD YEAGER MD SYSTEM ID: [id number] XR Surgery RAAD L/T 5 Min Fluoro w Stills Narrative This exam was marked as non-reportable because it will not be read by a radiologist or a [facility] non-radiologist provider. XR Pelvis w Hip Port [...] alignment. Osteopenia. 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 She is close with her , Dell, who is a fur dyer. Meaning, Beliefs, and Spirituality - Pt reports that her vicki is very important for her. She identifies as [facility]. She experiences God's love and justina in her life, and this is a major support for her. Mora prioritizes reading scripture and feels moved by sermons that get to the root of the Gospel message. She welcomed prayer with me. Plan of Care - I and other chaplains remain available for further support. I informed pt on how to request a flour worker should further support be needed. Karoline Martinez Printing Assistant Belt Notcher [facility] routine referrals *[id number] [facility] available 28/03 for emergent requests/referrals, either by paging the on-call flour worker or by entering an HOWIE/STAT consult in [facility] (this will also page the on-call flour worker). * Vira Fernandes PA-C - 04/10/2023 10:07 [...] from the original note were not included. [facility] Hospitalist Progress Note Jonathan Linn M.D., [...] partially visualized. JEROD YEAGER MD SYSTEM ID: [id number] XR Surgery RAAD L/T 5 Min Fluoro w Stills Narrative This exam was marked as non-reportable because it will not be read by a radiologist or a [facility] non-radiologist provider. XR Pelvis w Hip Port [...] alignment. Osteopenia. POLO GARCIA MD SYSTEM ID: [id number] COVID Status: COVID-19 PCR Results 04/10/2021 09:25 [...] flowsheet Bed Mobility Bed Mobility supine-sit;sit-supine Supine-Sit Oxford (Bed Mobility) minimum assist (75% patient effort) Sit-Supine [place] (Bed Mobility) minimum assist (75% patient effort) [...] Evaluation Time OT Eval, Low Complexity Minutes (16325) 10 OT Goals Therapy Frequency (OT) 5 [...] Management Self-Care/Home Mgmt/ADL, Compensatory, Meal Prep Minutes (95597) 22 Treatment Detail/Skilled Intervention Pt is educated [...] Evaluation Time PT Eval, Low Complexity Minutes (48387) 10 Physical Therapy Goals PT Frequency Daily PT Predicted Duration/Target Date for Goal Attainment 04/12/23 PT Goals Transfers;Bed Mobility;Gait PT: Bed Mobility Supine to/from sit;Rolling;Modified independent PT: Transfers Supervision/stand-by assist;Sit to/from stand;Modified independent PT: Gait Supervision/stand-by assist;Greater than 200 feet;Rolling walker;Within precautions Therapeutic Procedure/Exercise Ther. Procedure: strength, endurance, ROM, flexibillity Minutes (27021) 10 Treatment Detail/Skilled Intervention Pt engaged in 10 reps LLE AP, QS, heel slide, SAQ for improved bld flow and ROM prior to OOBmobility tolerated well Symptoms Noted During/After Treatment fatigue;increased pain Therapeutic Activity Therapeutic Activities: dynamic activities to improve functional performance Minutes (95518) 10 Treatment Detail/Skilled Intervention Pt supine upon [...] BLE elevated Gait Training Gait Training Minutes (61660) 15 Symptoms Noted During/After Treatment (Gait Training) [...] chips well. Frequent VS started. * Jonathan iLnn MD - 04/08/2023 4:40 PM CDT Images from the original note were not included. [facility] Hospitalist Progress Note Jonathan Linn M.D., [...] partially visualized. JEROD YEAGER MD SYSTEM ID: [id number] XR Surgery RAAD L/T 5 Min Fluoro w Stills Narrative This exam was marked as non-reportable because it will not be read by a radiologist or a [facility] non-radiologist provider. XR Pelvis w Hip Port [...] alignment. Osteopenia. POLO GARCIA MD SYSTEM ID: [id number] COVID Status: COVID-19 PCR Results 04/10/2021 09:25 [...] Locke MD - 04/07/2023 3:10 PM CDT [facility] History and Physical - Hospitalist Service [...] Disposition Plan Deyanira Locke MD Hospitalist Service [facility] Securely message with [employer] (more info) Text page via [facility] Properties Paging/Directory Chief Complaint Left hip pain in [...] SH OR CARPAL TUNNEL RELEASE RT/LT Bilateral KNIFEMAN SURGERY c section x 3 OPEN REDUCTION [...] night she is lives with her in [facility] Family History No significant family [...] encounter Consult Notes * Caron Alba APRN ACQUISITION MANAGER - 04/11/2023 5:30 PM CDTAssociated Order(s): PAIN MANAGEMENT ADULT IP CONSULT Images from the original note were not included. [facility] Acute Pain Management Consultation Date of [...] Obesity, Smoker, Age>60, >2 opioid therapies, concomitant ACQUISITION MANAGER depressants, opioid naive status, or post [...] she had rarely taken opiates. Per [place] [facility] review Oxycodone and Tramadol. The patient is [...] care everywhere. Last UDS - none [place] [facility]-pulled from system on 04/11/23. Last refill on [...] (Left, 01/25/2021); carpal tunnel release rt/lt (Bilateral); KNIFEMAN surgery; Total Knee Arthroplasty (Left, 04/2021); tubal [...] partially visualized. JEROD YEAGER MD SYSTEM ID: [id number] XR Pelvis w Hip Port Left 1 View Impression IMPRESSION: Status post left total hip arthroplasty revision with longstem femoral component. Periprosthetic fracture of the proximal femur with improved alignment. Expected postsurgical soft tissue edema, subcutaneous emphysema, and skin pepe. Normal joint alignment. Osteopenia. POLO GARCIA MD SYSTEM ID: [id number] CT Pelvis Soft Tissue w Contrast Impression [...] AM to 4:30 PM after 4:30 page warehouse logistics coordinator No weekend coverage [facility] Paging/Directory Pain Securely message with the SIP[employer] Console (learn more here) * [facility] [...] Communication Assessment Patient's communication style: spoken language (Guatemalan or Bilingual) Hearing Difficulty or Deaf: no [...] see. Pt would like referrals sent to [facility], referrals sent. Pt stated her will provide transportation. Pt reports being independent with IADL/ADLs and uses a rolling walker. BEN Howard, [facility] Inpatient Care Coordination [facility] [phone] * Trini Torres PA-C - 04/07/2023 2:50 PM CDT [facility] Orthopedic Consultation Mora Galeas Age: [age] [...] She had increased pain and xrays at [facility] and was told xrays were negative. Unfortunately, patient was found to have a left hip periprosthetic fracture at her follow-up appointment yesterday at [facility] and was referred to the hospital [...] SH OR CARPAL TUNNEL RELEASE RT/LT Bilateral KNIFEMAN SURGERY c section x 3 OPEN REDUCTION [...] Status --------- ------ CBC with platelets and d...[[id number]] Please view results for these tests on the individual orders. ABO/Rh type and screen Status: None () Narrative The following orders were created for panel order ABO/Rh type and screen. Procedure Abnormality Status --------- ------ Adult Type and Screen[[id number]] Please view results for these tests on [...] pop in her hip. She presented to [facility] where x-rays were read as negative. She has since followed up at [facility] where new x-rays were obtained and [...] Smith RN - 04/07/2023 3:20 PM CDT [facility] ED Nurse Handoff Report ED Chief complaint: Hip Pain . ED Diagnosis: Final diagnoses: Periprosthetic hip fracture, initial encounter Allergies: Allergies Allergen Reactions Aspirin Anaphylaxis Code Status: Full Code Activity level - Baseline/Home: independent. Activity Level - Current: in bed. Lift room needed: No. Bariatric: No Brokerage Manager Needed: No Isolation: No. Infection: Not Applicable. [...] 5 mg (5 mg Oral $Given 04/07/23 8180) Drips infusing: No For the majority of [...] Patient Only Review of External Notes: Reviewed [facility] note Dr. Cj Issa home [...] partially visualized. JEROD YEAGER MD SYSTEM ID: [id number] Report per radiology Laboratory: Labs Ordered and [...] NEG Antibody Screen Negative SPECIMEN EXPIRATION DATE [id number] ABO/RH TYPE AND SCREEN Emergency Department Course [...] 2-3 Expected length of therapy undetermined. Warfarin HOT BLAST WORKER Regimen: 2.5 mg daily Anticoagulation Dose History [...] goal(s). See goals on Care Plan in [facility] electronic health record for goal details. Goals [...] goal(s). See goals on Care Plan in [facility] electronic health record for goal details. Goals [...] analgesics: Yes Does patient have an identified excellence coach: Yes Has goal D/C date and [...] iv. Dressings-changed via [facility] ortho. Aquacel applied. [place] intact. CMS-denies numbness and tingling. +pp. Strong [...] analgesics: Yes Does patient have an identified excellence coach: Yes Has goal D/C date and [...] analgesics: Yes Does patient have an identified excellence coach: Yes Has goal D/C date and [...] Reason: IVC Does patient have an identified excellence coach: Yes Has goal D/C date and [...] Stevenson RN - 04/09/2023 4:00 PM CDT [employer] Web Paged Dr. Linn: Tachy HRs 130-140s, [...] 10 mg. Does patient have an identified excellence coach: Yes, was at bedside this afternoon. [...] 2-3 Warfarin Prior to Admission: Yes Warfarin HOT BLAST WORKER Regimen: 2.5 mg daily Significant drug interactions: [...] CDT ORTHOPEDIC SURGERY OPERATIVE NOTE Mora Galeas [id number] 1960 April 08, 2023 PREOPERATIVE DIAGNOSIS: Left [...] the pre-existing implant. SURGEON: Fazal Ramirez MD ELECTRONIC WARFARE TECHNICIAN: Rohini Beal PA-C; A skilled first line supervisor was necessary for this procedure for assistance with patient positioning, prepping, draping, surgical visualization, wound closure, and application of the dressing. Vira Fernandes PA-C SPECIMENS: None COMPLICATIONS: None ESTIMATED BLOOD LOSS: 350cc IMPLANTS: Implant Name Type Inv. Item Serial No. Supervisor Microbiology Technologists Lot No. LRB No. Used Action IMP HEAD FEMORAL STRK BIOLOX DELTA CERAMIC 36MM +2.5MM - [id number] Total Joint Component/Insert IMP HEAD FEMORAL STRK BIOLOX DELTA CERAMIC 36MM +2.5MM [employer] [id number] Left 1 Explanted IMP STEM FEMORAL HIP STRK ACCOLADE II 132DEG SZ 5 0110-5406 - [id number] Total Joint Component/Insert IMP STEM FEMORAL HIP STRK ACCOLADE II 132DEG SZ 5 7120- 8923 [employer] [id number] Left 1 Explanted FiberTape Cerclage, 2mm, 48 ARTHREX [id number] Left 3 Implanted IMP STEM FEM RSTRTN MOD BOWED CONICAL [id number] - [id number] Total Joint Component/InsertIMP STEM FEM RSTRTN MOD BOWED CONICAL [id number] [employer] [id number] Left 1 Implanted IMP INSERT ACET STRK MDM COCR HIP 0DEG 42MM SZ E [id number] - [id number] Total Joint Component/Insert IMP INSERT ACET STRK MDM COCR HIP 0DEG 42MM SZ E [id number] [employer] [id number] Left 1 Implanted IMP STEM FEM MOD REV HIP PROX BODY/BOLT 19MM +10 119 - [id number] Total Joint Component/Insert IMP STEM FEM MOD REV HIP PROX BODY/BOLT 19MM +10 119 [employer] [id number] Left 1 Implanted INSERT ACTB 42MM 28MM E HIP X3 ADM STRL [facility] 7236-2-848 - [id number] Metallic Hardware/[place] INSERT ACTB 42MM 28MM E HIP X3 ADM STRL [facility] 7236-2-848 [employer] [id number] Left 1 Implanted IMP HEAD FEMORAL STRK BIOLOX DELTA CERAMIC 28MM +4MM - [id number] Total Joint Component/Insert IMP HEAD FEMORAL STRK BIOLOX DELTA CERAMIC 28MM +4MM [employer] [id number] Left 1 Implanted FiberTape Cerclage, 2mm, 48 [id number] Left 1 Implanted FiberTape Cerclage, 2mm, 48 ARTHREX [id number] Left 1 Implanted PRIOR IMPLANTS: She has a Cal[place] 52 mm Trident TriTanium cluster hole acetabular [...] pop in her hip. She presented to [facility] where x-rays were read as negative. She has since followed up at [facility] where new x-rays were obtained and [...] be loose and easilyremoved with a vice submarine operator Revision hip arthroplasty We then proceeded with placement of a new stem. Prior to placement of the new stem, a Arthrex fibertape cerclage was placed just distal to the fracture along the femoral shaft to prevent any propagation of a femoral shaft fracture. The Moment hoahaoism modular implant system was utilized. The femoral shaft was reamed sequentially up to a size 19mm. Intraoperative radiographs were obtained to ensure good fit. A [id number] was selected and implanted into the femoral [...] Ramirez's clinic in [address] Ramirez's body care manager is Dede Sadler. Please contact her at [phone] to schedule an appointment. Dr. Ramirez sees patient's at 2 clinic locations: [facility] [address] [place], [place] [address] [place] [address] [facility] [place] [address] , [address], [place] [address] Please call the on-call phone number [phone] during evenings, nights and weekends for any urgent needs. Prescription refills must be done during business hours by calling [phone] Fazal Ramirez MD [facility] * Plan of Care - [...] through pain Does patient have an identified excellence coach: Yes Has goal D/C date and [...] Yes Information Source(s): Patient, Hospital records, and [facility]Everywhere[facility] via in-person Pertinent Information: Pt recently started warfarin following surgery a couple of weeks ago - Rx states to take two 2.5 mg tabs daily (5 mg total), however pt has only been taking one 2.5 mg tab daily. Pt states has green colored tabs at home. Changes made to HOT BLAST WORKER medication list: Added: None Deleted: None Changed: Warfarin 5 mg daily -> 2.5 mg daily Senna-doc -> PRN Allergies reviewed with patient and updates made in EHR: yes Medication History Completed By: Trini Josue RPH 04/07/2023 6:44 PM Prior to Admission medications Medication Sig Last Dose Taking? Auth Provider Half-Way End Date acetaminophen (TYLENOL) 325 MG tablet [...] Locke MD LAB - BLOOD ORDERABL ES [facility] [address] Lab (1st floor, no room number) [place] [phone], [facility] [phone] * (ABNORMAL) Hemoglobin (04/12/2023 6:41 AM CDT) Hemoglobin 7.8(L) 11.7 - 15.7 g/dL 04/12/2023 6:49 AM CDT [facility] LABORATORY Blood STRUCTURE OF LEFT HAND / Unknown Venipuncture / Unknown 04/12/2023 6:41 AM CDT 04/12/2023 6:45 AM CDT Jonathan Linn MD LAB - BLOOD ORDERABL ES [facility] [address] Lab (1st floor, no room number) [place] [address], [facility] [phone] * (ABNORMAL) INR (04/12/2023 6:41 AM CDT) INR 1.28(H) 0.85 - 1.15 04/12/2023 6:58 AM CDT [facility] LAB[facility]AT[facility] Blood STRUCTURE OF LEFT HAND / Unknown Venipuncture / Unknown 04/12/2023 6:41 AM CDT 04/12/2023 6:45 AM CDT Rohini PEDERSON-Gavi LAB - BLOOD ORDERA BLES Performing Organization Address [facility] Co de Phone Number [facility] [address] Lab (1st floor, no room number) [place] [phone], [facility] [phone] * (ABNORMAL) Hemoglobin (04/11/2023 5:58 PM CDT) Hemoglobin 7.6(L) 11.7 - 15.7 g/dL 04/11/2023 6:06 PM CDT [facility] LABORAT[facility] Blood STRUCTURE OF RIGHT UPPER LIMB / Unknown Venipuncture / Unknown 04/11/2023 5:58 PM CDT 04/11/2023 6:01 PM CDT Jonathan Linn MD LAB - BLOOD ORDERABL ES Performing Organization Address [facility] de Phone Number [facility] [address] Lab (1st floor, no room number) [place] [phone], [facility] [phone] * (ABNORMAL) INR (04/11/2023 6:51 AM CDT) INR 1.29(H) 0.85 - 1.15 04/11/2023 7:20 AM CDT [facility] LAB[facility] Blood STRUCTURE OF RIGHT UPPER LIMB / Unknown Venipuncture / Unknown 04/11/2023 6:51 AM CDT 04/11/2023 7:03 AM CDT Rohini PEDERSON-Gavi LAB - BLOOD ORDERA BLES LABORATORY [facility] [address] Lab (1st floor, no room number) [place] [address], [facility] [phone] * Platelet count (04/11/2023 6:51 AM CDT) Platelet Count 383 150 - 450 10e3/uL 04/11/2023 7:06 AM CDT [facility] LABORAT[facility] Blood STRUCTURE OF RIGHT UPPER LIMB / Unknown Venipuncture / Unknown 04/11/2023 6:51 AM CDT 04/11/2023 7:03 AM CDT Rohini Beal PA-C LAB - BLOOD ORDERA BLES Performing Organization Address City/[facility]/ZIP Co de Phone Number LABORATORY [facility] [address] Lab (1st floor, no room number) [place] [address], [facility] [phone] * (ABNORMAL) Hemoglobin (04/11/2023 6:51 AM CDT) Hemoglobin 7.7(L) 11.7 - 15.7 g/dL 04/11/2023 7:06 AM CDT [facility] LABORAT[facility] Blood STRUCTURE OF RIGHT UPPER LIMB / Unknown Venipuncture / Unknown 04/11/2023 6:51 AM CDT 04/11/2023 7:03 AM CDT Jonathan Linn MD LAB - BLOOD ORDERABL ES LABORATORY [facility] [address] Lab (1st floor, no room number) [place] [address], [facility] [phone] * Transfuse red blood cells (unit) (04/10/2023 11:32 PM CDT) Isabel Hawthorne MD BLOOD TRANSFUSION OR DERABLES * Transfuse red blood cells (unit), 1 Units (04/10/2023 11:32 PM CDT) Isabel Hawthorne MD BLOOD TRANSFUSION OR DERABLES * Prepare red blood cells (unit) (04/10/2023 8:23 PM CDT) Blood Component Type Red Blood Cells RH BLOOD BANK Product Code [id number] RH BLOO D BANK Unit Status Transfused RH BLOO D BANK Unit Number [id number] RH B LOOD BANK CROSSMATCH Compatible RH BLOOD BANK CODING SYSTEM [id number] RH BLO OD BANK ISSUE DATE AND TIME [id number] RH BLOOD BANK UNIT ABO/RH A- RH BLOOD BANK UNIT TYPE ISBT 0600 RH BL OOD BANK 04/10/2023 8:23 PM CDT Isabel Hawthorne MD BLOOD BANK PRODUCT O RDERABLES Performing Organization Address [facility] Co de Phone Number BLOOD BANK [address] [place] [address] * Adult Type and Screen (04/10/2023 8:04 PM CDT) ABO/RH(D) A NEG 04/10/2023 7:13 PM CDT RH BLOOD BANK Antibody Screen Negative Negative 04/10/2023 7:13 PM CDT RH BLOOD BANK SPECIMEN EXPIRATION DATE [id number] 04/10/2023 7:13 PM CDT RH BLOOD BANK Blood STRUCTURE OF RIGHT UPPER LIMB / Unknown Venipuncture / Unknown 04/10/2023 8:04 PM CDT 04/10/2023 8:06 PM CDT Drake Aburto MD LAB - BLOOD BANK RENITA T ORDER Performing Organization Address [facility] Co de Phone Number BLOOD BANK [address] [place] [address], [facility] * CT Pelvis Soft Tissue w [...] CT PELVIS SOFT TISSUE W CONTRAST LOCATION: [facility] DATE: 04/10/2023 INDICATION: Hgb 9 ??>6.8 [...] CT PELVIS SOFT TISSUE W CONTRAST LOCATION: [facility] DATE: 04/10/2023 INDICATION: Hgb 9 >6.8 [...] - BLOOD ORDERABL ES Performing Organization Address [facility]/ZIP Co de Phone Number [facility] [address] Lab (1st floor, no room number) [place] [address], [facility] [phone] * (ABNORMAL) Glucose (04/10/2023 7:07 AM CDT) Glucose 108(H) 70 - 99 mg/dL 04/10/2023 7:36 AM CDT LABORATORY Blood STRUCTURE OF RIGHT UPPER LIMB / Unknown Venipuncture / Unknown 04/10/2023 7:07 AM CDT 04/10/2023 7:12 AM CDT Jonathan Linn MD LAB - BLOOD ORDERABL ES [facility] [address] Lab (1st floor, no room number) [place] [address], [facility] [phone] * (ABNORMAL) INR (04/10/2023 7:07 AM CDT) INR 1.31(H) 0.85 - 1.15 04/10/2023 7:26 AM CDT LABORATORY Blood STRUCTURE OF RIGHT UPPER LIMB / Unknown Venipuncture / Unknown 04/10/2023 7:07 AM CDT 04/10/2023 7:12 AM CDT Rohini Beal PA-C LAB - BLOOD ORDERA BLES RH LABORATORY [facility] Lab [address] Lab (1st floor, no room number) [place] [address], [facility] [phone] * (ABNORMAL) Basic metabolic panel (04/10/2023 7:07 [...] LAB - BLOOD ORDERABL ES RH LABORATORY [facility] Lab [address] Lab (1st floor, no room number) [place] [address], [facility] [phone] * (ABNORMAL) CBC with platelets (04/10/2023 7:07 [...] MD LAB - BLOOD ORDERABL ES LABORATORY [facility] Acute Care Lab [address] Lab (1st floor, no room number) [place] [address], [facility] [phone] * (ABNORMAL) INR (04/09/2023 7:39 AM CDT) INR 1.18(H) 0.85 - 1.15 04/09/2023 8:20 AM CDT LABORATORY Blood STRUCTURE OF RIGHT HAND / Unknown Venipuncture / Unknown 04/09/2023 7:39 AM CDT 04/09/2023 7:47 AM CDT Rohini Beal PA-C LAB - BLOOD ORDERA BLES RH LABORATORY [facility] Lab [address] Lab (1st floor, no room number) [place] [address], [facility] [phone] * (ABNORMAL) Basic metabolic panel (04/09/2023 7:39 [...] MD LAB - BLOOD ORDERABL ES LABORATORY [facility] Lab [address] Lab (1st floor, no room number) [place] [address], [facility] [phone] * (ABNORMAL) CBC with platelets (04/09/2023 7:39 [...] MD LAB - BLOOD ORDERABL ES LABORATORY [facility] Lab [address] Lab (1st floor, no room number) [place] [address], [place] [phone] * (ABNORMAL) INR (04/08/2023 6:15 PM CDT) INR 1.26(H) 0.85 - 1.15 04/08/2023 6:41 PM CDT RH LABORATORY Blood STRUCTURE OF RIGHT HAND / Unknown Venipuncture / Unknown 04/08/2023 6:15 PM CDT 04/08/2023 6:28 PM CDT Rohini Beal PA-C LAB - BLOOD ORDERA BLES LABORATORY [facility] [address] [facility], no room number) [place] [address], [facility] [phone] * XR Pelvis w Hip Port Left [...] alignment. Osteopenia. POLO GARCIA MD SYSTEM ID: ??[id number] Narrative 04/08/2023 4:18 PM CDT XR PELVIS [...] alignment. Osteopenia. POLO GARCIA MD SYSTEM ID: [id number] Rohini Niñofort [facility] PA-C IMG DIAGNOSTIC PARAM GING ORDERABLES * Creatinine (04/08/2023 3:36 PM CDT) Creatinine 0.54 0.51 - 0.95 mg/dL 04/08/2023 5:00 PM CDT RH LABORATORY GFR Estimate >90 >60 mL/min/1.73 m2 04/08/2023 5:00 PM CDT RH LABORATORY Blood STRUCTURE OF RIGHT HAND / Unknown Venipuncture / Unknown 04/08/2023 3:36 PM CDT 04/08/2023 4:40 PM CDT Rohini Sampsonvernon CA-C LAB - BLOOD ORDERA BLES Performing Organization Address City/[facility]/ZIP Co de Phone Number [facility] Lab [address] Lab (1st floor, no room number) [place] [address], [facility] [phone] * XR Surgery RAAD L/T 5 Min Fluoro w Stills (04/08/2023 2:18 PM CDT) Narrative [facility] - 04/08/2023 2:19 PM CDT This exam was marked as non-reportable because it will not be read by a radiologist or a [place] non-radiologist provider. Fazal Ramirez MD IMG DIAGNOSTIC PARAM GING ORDERABLES Performing Organization Address City/[facility]/ZIP Co de Phone Number [facility] * (ABNORMAL) INR (04/08/2023 3:57 AM CDT) INR 1.39(H) 0.85 - 1.15 04/08/2023 4:28 AM CDT RH LABORATORY Blood STRUCTURE OF RIGHT UPPER LIMB / Unknown Venipuncture / Unknown 04/08/2023 3:57 AM CDT 04/08/2023 4:17 AM CDT Deyanira Locke MD LAB - BLOOD ORDERABL ES Performing Organization Address City/[facility]/ZIP Co de Phone Number RH LABORATORY [facility] Acute Care Lab [address] Lab (1st floor, no room number) [place] [address], [facility] [phone] * (ABNORMAL) CBC with platelets (04/08/2023 3:57 [...] MD LAB - BLOOD ORDERABL ES LABORATORY [facility] Lab [address] Lab (1st floor, no room number) [place] [address], [facility] [phone] * (ABNORMAL) Basic metabolic panel (04/08/2023 3:57 [...] MD LAB - BLOOD ORDERABL ES LABORATORY [facility] Lab [address] [facility] Lab (1st floor, no room number) [place] [address], [facility] [phone] * CT Hip Left w/o Contrast (04/07/2023 [...] partially visualized. JEROD YEAGER MD SYSTEM ID: ??[id number] Narrative 04/07/2023 4:[address] HIP [...] partially visualized. JEROD YEAGER MD SYSTEM ID: [id number] Trini Torres PA-C IMG CT ORDERABLES * Adult Type and Screen (04/07/2023 2:54 PM CDT) ABO/RH(D) A NEG 04/07/2023 2:42 PM CDT RH BLOOD BANK Antibody Screen Negative Negative 04/07/2023 2:42 PM CDT RH BLOOD BANK SPECIMEN EXPIRATION DATE [id number] 04/07/2023 2:42 PM CDT RH BLOOD BANK Blood BLOOD SPECIMEN / Unknown Venipuncture / Unknown 04/07/2023 2:54 PM CDT 04/07/2023 3:02 PM CDT Rusty Schultz PA-C LAB - BLOOD B ANK TEST ORDER Performing Organization Address City/State/[facility] Co de Phone Number BLOOD BANK [address] [place] [address] * (ABNORMAL) CBC with platelets [...] LAB - BLOOD O RDERABLES RH LABORATORY [facility] Lab [address] Lab (1st floor, no room number) [place] [address], [facility] [phone] * (ABNORMAL) Basic metabolic panel (BMP) (04/07/2023 [...] PA-C LAB - BLOOD O RDERABLES LABORATORY [facility] Lab [address] Lab (1st floor, no room number) [place] [address], [facility] [phone] * Partial thromboplastin time (04/07/2023 2:54 PM CDT) aPTT 33 22 - 38 Seconds 04/07/2023 3:15 PM CDT RH LABORATORY Blood BLOOD SPECIMEN / Unknown Venipuncture / Unknown 04/07/2023 2:54 PM CDT 04/07/2023 3:02 PM CDT Rusty Schultz PA-C LAB - BLOOD O EDDA [facility] Care Lab [address] Lab (1st floor, no room number) [place] [address], [facility] [phone] * (ABNORMAL) INR (04/07/2023 2:54 PM CDT) INR 1.40(H) 0.85 - 1.15 04/07/2023 3:14 PM CDT LABORATORY Blood BLOOD SPECIMEN / Unknown Venipuncture / Unknown 04/07/2023 2:54 PM CDT 04/07/2023 3:02 PM CDT Rusty Schultz PA-C LAB - BLOOD O EDDA Performing Organization Address City/[facility]/ZIP Co de Phone Number [facility] Care Lab [address] Lab (1st floor, no room number) [place] [address], [facility] [phone] documented in this encounter Visit Diagnoses Diagnosis [...] 2 MIN PRN, opioid reversal, Starting on [facility] 04/07/23 at 1944, Administer intravenous route when [...] 2 MIN PRN, opioid reversal, Starting on [facility] 04/07/23 at 1944, Administer intramuscular if an [...] 2 MIN PRN, opioid reversal, Starting on [facility] 04/07/23 at 1944, Administer intramuscular if an [...] analgesic side effects. Hold while on IV JUICE WEIGHER or with regular IV opioid dosing., , [...] analgesic side effects. Hold while on IV JUICE WEIGHER or with regular IV opioid dosing., , [...] analgesic side effects. Hold while on IV JUICE WEIGHER or with regular IV opioid dosing., , [...] analgesic side effects. Hold while on IV JUICE WEIGHER or with regular IV opioid dosing., , [...] analgesic side effects. Hold while on IV JUICE WEIGHER or with regular IV opioid dosing., , [...] analgesic side effects. Hold while on IV JUICE WEIGHER or with regular IV opioid dosing., , [...] documented as of this encounter Care Teams Intake Clerk Relationship Specialty Start Date End Date Case Gao [address] [place] [address] PCP - General Family Medicine 01/25/21 documented as of this encounter
--- OUTSIDE RECORDS SUMMARY | 2023-10-12 13:53 | XMS_ITS | Encounter Summary ---
Author Name Unknown Organization [facility] Address [address] [place] [address] Care Team Providers Care Crown Ceramist Name Role Phone Case Gao Sierra Primary Care Provider [phone] Reason for Visit * Auth/Cert (Routine) Specialty Diagnoses / Procedures Referred By Konstantin katz Referred To Contact Surgery Diagnoses Primary osteoarthritis of left hip Primary osteoarthritis of left hip [M16.12] Procedures [place] TOTAL HIP ARTHROPLASTY left total hip arthroplasty [facility] [address] [place] [address] Referral ID Status Reason Start Date Expiration Date Visits Re quested Visits Authorized [id number] 1 1 Encounter Details Date Type Department Care Team (Late st Contact Info) Description 03/25/2023 7:30 AM CDT - 03/25/2023 9:05 AM CDT Surgery [facility] PeriOP Services [address] [place] [address] Cj Chen MD [facility] [address] [facility] [address] [place] [address] left total hip arthroplasty with removal of [...] Primary Orthopedics 1 Vira Fernandes PA-C Assisting Technology Training Associate Authorizat ion 1 Case Notes DANTE REVIEWED [...] results for input(s): POTASSIUM in the last 98083 hours. Recent Labs Lab Test 03/26/23 0936 HGB 10.2* Recent Labs Lab Test 03/26/23 0936 03/25/23 1101 INR 1.08 1.02 No results for input(s): PLT in the last 84902 hours. A/P 1. S/p left MICHELLE (PL [...] Evaluation Time OT Eval, Low Complexity Minutes (22534) 10 Therapy Certification Medical Diagnosis L MICHELLE [...] Management Self-Care/Home Mgmt/ADL, Compensatory, Meal Prep Minutes (99969) 25 Symptoms Noted During/After Treatment (Meal Preparation/Planning Training) fatigue Treatment Detail/Skilled Intervention Educated patient on AE for dressing. Patient dons lower body clothing with MOD I with exception of shoes. Patient too tired to try. Issued elastic laces and patient verbalizes technique to don/doff. Therapeutic Activities Therapeutic Activity Minutes (92568) 15 Symptoms noted during/after treatment fatigue Treatment [...] of timed and untimed services) 50 M [facility] OUTPATIENT OCCUPATIONAL THERAPY EVALUATION PLAN OF TREATMENT FOR OUTPATIENT REHABILITATION (COMPLETE FOR INITIAL CLAIMS ONLY) Patient's Last Name, First Name, M.I. Date of : 1960 Mora Avalos Provider's Name [facility] Onset Date: 03/25/23 Start of Care Date: 03/26/23 Type: ___PT _X_OT ___SLP Medical Diagnosis: L MICHELLE OT Diagnosis: Decreased ADL Visits from SOC: 1 _ Plan of Treatment/Functional Goals Planned Interventions: ADL retraining Goals: See Occupational Therapy Goals on Care Plan in [facility] electronic health record. Therapy Frequency: One time eval and treatment Predicted Duration of Therapy Intervention: 03/26/23 _ I CERTIFY THE NEED FOR THESE SERVICES FURNISHED UNDER THIS PLAN OF TREATMENT AND WHILE UNDER MY CARE . Physician Signature Date X Certification date from: 03/26/23, Certification date to: 03/26/23 Referring Physician: Cj Chen Initial Assessment See Occupational Therapy evaluation dated 03/26/23 in [facility] electronic health record. Associated attestation - Cj Chen MD - 03/29/2023 10:14 AM CDT Physician Attestation I agree with the information in this note. Cj Chen MD, * Karma Colón RN - 03/26/2023 6:14 AM CDT Date/Time 03/25-03/26 3133-7988 AM Patient vital signs are at baseline: [...] Avilez - 03/25/2023 6:12 AM CDT SENIOR SOLUTIONS CONSULTANT medications completed by Medication Scribe day of [...] Medication Sig Last Dose Taking? Auth Provider Alf End Date etanercept (ENBREL) 50 MG/ML injection [...] completed by: Alfonso Avilez CPhT Medication Scribe [facility] documented in this encounter H&P Notes * [...] analgesics: Yes Does patient have an identified community living coach: Yes Has goal D/C date and [...] PT - 03/25/2023 4:06 PM CDT 03/25/23 0871 Appointment Info Signing Clinician's Name / Credentials [...] Evaluation Time PT Eval, Low Complexity Minutes (40778) 10 Plan of Care Review Plan of [...] (sum of timed and untimed services) 10 [facility] OUTPATIENT PHYSICAL THERAPY EVALUATION PLAN OF TREATMENT FOR OUTPATIENT REHABILITATION (COMPLETE FOR INITIAL CLAIMS ONLY) Patient's Last Name, First Name, M.I. Date of : 1960 Mora Avalos Provider's Name [facility] Onset Date: 03/25/23 Start of Care [...] review and certification of the therapy plan). BINDING FITTER AND REPAIRER Associated attestation - Cj Chen MD - 08/12/2023 8:23 AM SKI BINDING FITTER AND REPAIRER Agree with note * Pharmacy-Anticoagulation Service - Rohini Chua [facility] - 03/25/2023 11:23 AM CDT [...] Chen MD - 03/25/2023 11:[address] [facility] Brief Operative Note Pre-operative diagnosis: Primary [...] Implant Name Type Inv. Item Serial No. Maintenance Service Supervisor Lot No. [id number] No. Used Action 6.5 mm Cannulated Screws, 16mm thread length 80mm KG Funding 24 JAN 2021 Left 3 Explanted Titanium Washer, 13.0 mm SYNTHES 24 JAN 2021 [id number] Left 3 Explanted TRIDENT II TRITANIUM CLUSTERHOLE 52E - [id number] Total Joint Component/Insert TRIDENT II TRITANIUMCLUSTERHOLE 52E [employer] [id number] Left 1 Implanted INSERT JONATAN 36MM 0DEG X3 723-00-36E - [id number] Total Joint Component/Insert INSERT JONATAN 36MM 0DEG X3 723-00-36E [employer] [id number] Left 1 Implanted IMP STEM FEMORAL HIP STRK ACCOLADE II 132DEG SZ 5 1659-8040 - [id number] Total Joint Component/Insert IMP STEM FEMORAL HIP STRK ACCOLADE II 132DEG SZ 5 1528- 8559 [employer]THEW [employer] [id number] Left 1 Implanted IMP HEAD FEMORAL STRK BIOLOX DELTA CERAMIC 36MM +2.5MM - [id number] Total Joint Component/Insert IMP HEAD FEMORAL STRK BIOLOX DELTA CERAMIC 36MM +2.5MM MATTHEW [employer]el [id number] Left 1 Implanted * Op Note - Cj Chen MD - 03/25/2023 9:42 AM CDT Procedure Date: 03/25/2023 PREOPERATIVE DIAGNOSIS: Avascular necrosis, status post pinning of left femoral neck fracture. POSTOPERATIVE DIAGNOSIS: Avascular necrosis, status post pinning of left femoral neck fracture. PROCEDURES: 1. Left hip removal of hardware. 2. Left total hip arthroplasty. SURGEON: Cj Chen MD. PLANT AND MACHINERY VALUER: Vira Fernandes PA-C. ANESTHESIA: Spinal with sedation. [...] along the calcar. Trial reduction restored appropriate mosque of leg length, offset and stability. The size 5 Accolade II 132-degree neck angle hip stem wasopened and impacted, matching the patient's lac vieux femoral version. Multiple trial reductions were p [...] MT: dc Name: MORA AVALOS: -71 Account: [id number] : 1960 Procedure Date: 03/25/2023 Document: [id number] documented in this encounter Plan of Treatment [...] MD LAB - BLOOD ORDERABL ES LABORATORY [facility] Acute Care Lab [address] 1st floor, [address] [place] [address], [facility] [phone] * (ABNORMAL) Hemoglobin (03/26/2023 9:36 AM CDT) Hemoglobin 10.2(L) 11.7 - 15.7 g/dL 03/26/2023 9:52 AM CDT LABORATORY Blood STRUCTURE OF LEFT UPPER LIMB / Unknown Venipuncture / Unknown 03/26/2023 9:36 AM CDT 03/26/2023 9:49 AM CDT Cj Chen MD LAB - BLOOD ORDERABL ES LABORATORY [facility] Lab [address] 1st floor, [address] [place] [address], [facility] [phone] * (ABNORMAL) Glucose (03/26/2023 9:36 AM CDT) Glucose 123(H) 70 - 99 mg/dL 03/26/2023 10:23 AM CDT LABORATORY Patient Fasting > 8hrs? No 03/26/2023 10:23 AM CDT LABORATORY Blood STRUCTURE OF LEFT UPPER LIMB / Unknown Venipuncture / Unknown 03/26/2023 9:36 AM CDT 03/26/2023 9:49 AM CDT Cj Cehn MD LAB - BLOOD ORDERABL ES LABORATORY [facility] Lab [address] 1st floor, [address] [place] [address], [facility] [phone] * INR (03/25/2023 11:01 AM CDT) INR 1.02 0.85 - 1.15 03/25/2023 11:17 AM CDT LABORATORY Blood STRUCTURE OF LEFT UPPER LIMB / Unknown Venipuncture / Unknown 03/25/2023 11:01 AM CDT 03/25/2023 11:07 AM CDT Cj Chen MD LAB - BLOOD ORDERABL ES LABORATORY [facility] Acute Care Lab [address] 1st floor, [address] [place] [address], [facility] [phone] * XR Pelvis w Hip Port Left 1 View (03/25/2023 9:54 AM CDT) Anatomical Region Laterality Modality Abdomen/Pelvis Left Digital Radiogra phy Impressions 03/25/2023 10:19 AM CDT IMPRESSION: Removal of hardware and left total hip arthroplasty. Negative for postoperative purposes. HUMBLE SANTIAGO DO SYSTEM ID: ??[id number] Narrative 03/25/2023 10:19 AM CDT EXAM: XR [...] postoperative purposes. HUMBLE SANTIAGO DO SYSTEM ID: [id number] Cj Chen MD IMG DIAGNOSTIC IMAGI NG [...] analgesic side effects. Hold while on IV CERTIFIED PERSONAL TRAINER or with regular IV opioid dosing. $Given [...] analgesic side effects. Hold while on IV CERTIFIED PERSONAL TRAINER or with regular IV opioid dosing. $Given [...] 100 mL (ORTHO SANDRO CUSTOM DOSE) INTRA-ARTICULAR, REFERENCE AND INSTRUCTION LIBRARIAN TO O.R., Starting on Tue03/25/23 at 0724, [...] mL (ORTHO SANDRO CUSTOM DOSE) (COMPLETED) INTRA-ARTICULAR, REFERENCE AND INSTRUCTION LIBRARIAN TO O.R., Starting on Tue03/25/23 at 0724, [...] analgesic side effects. Hold while on IV CERTIFIED PERSONAL TRAINER or with regular IV opioid dosing. 1325 [...] analgesic side effects. Hold while on IV CERTIFIED PERSONAL TRAINER or with regular IV opioid dosing. 1325 [...] analgesic side effects. Hold while on IV CERTIFIED PERSONAL TRAINER or with regular IV opioid dosing. Or oxyCODONE (ROXICODONE) tablet 10 mgJump to med 10 mg, Oral, EVERY 4 HOURS PRN, severe pain, Starting on Tue03/25/23 at 1043, Hold oral PRN dose for analgesic side effects. Notify provider to assess for uncontrolled pain or analgesic side effects. Hold while on IV CERTIFIED PERSONAL TRAINER or with regular IV opioid dosing. Group [...] documented as of this encounter Care Teams Crown Ceramist Relationship Specialty Start Date End Date Case Gao [address] [place] [address] PCP - General Family Medicine 01/25/21 documented as of this encounter
--- OUTSIDE RECORDS SUMMARY | 2023-10-12 13:53 | XMS_ITS | Encounter Summary ---
Author Name Unknown Organization [facility] Address [address] [place] [address]. [place] [address] Care Team Providers Care Lab Analyst Name Role Phone Case Gao Primary Care Provider [phone] Encounter Details Date Type Department Care Team ([facility] Contact Info) Description 03/15/2023 Medical Correspondence [facility] [address] [place] [phone] Outside, Provider Social History Tobacco Use [...] documented as of this encounter Care Teams Lab Analyst Relationship Specialty Start Date End Date Case [place] [address] [place] [address] PCP - General Family Medicine 01/25/21 documented as of this encounter
--- OUTSIDE RECORDS SUMMARY | 2023-10-12 13:53 | XMS_ITS | Encounter Summary ---
Author Name Unknown Organization [facility] Address [address] [place] [address] Care Team Providers Care Pole Climber Name Role Phone Case Gao Primary Care Provider [phone] Encounter Details Date Type Department Care Team [...] documented as of this encounter Care Teams Pole Climber Relationship Specialty Start Date End Date Case Gao [address] [place] [address] PCP - General Family Medicine 01/25/21 documented as of this encounter
--- OUTSIDE RECORDS SUMMARY | 2023-10-12 13:53 | XMS_ITS | Encounter Summary ---
Author Name Unknown Organization [facility] Address [address] [place] [address]. [place] [address] Care Team Providers Care Through Freight Engineer Name Role Phone Sima Case Sierra Primary Care Provider [phone] Reason for Visit * Auth/Cert (Routine) Specialty Diagnoses / Procedures Referred By Konstantin katz Referred To Contact Surgery Diagnoses Primary osteoarthritis of left hip Primary osteoarthritis of left hip [M16.12] Procedures UT TOTAL HIP ARTHROPLASTY left total hip arthroplasty Periop Services [address] [place] [address] Referral ID Status Reason Start Date Expiration Date Visits Re quested Visits Authorized [id number] 1 1 Encounter Details Date Type Department Care Team (Latest Contact Info) Description 03/25/2023 5:17 AM CDT - 03/26/2023 12:01 PM CDT Hospital Encounter [facility] [address] [place] [phone] Cj Chen MD [facility] [address] [id number] Status post total hip replacement, left (Primary [...] results for input(s): POTASSIUM in the last 74646 hours. Recent Labs Lab Test 03/26/23 0936 HGB 10.2* Recent Labs Lab Test 03/26/23 0936 03/25/23 1101 INR 1.08 1.02 No results for input(s): PLT in the last 52449 hours. A/P 1. S/p left MICHELLE (PL [...] Evaluation Time OT Eval, Low Complexity Minutes (41209) 10 Therapy Certification Medical Diagnosis L MICHELLE [...] Management Self-Care/Home Mgmt/ADL, Compensatory, Meal Prep Minutes (23403) 25 Symptoms Noted During/After Treatment (Meal Preparation/Planning Training) fatigue Treatment Detail/Skilled Intervention Educated patient on AE for dressing. Patient dons lower body clothing with MOD I with exception of shoes. Patient too tired to try. Issued elastic laces and patient verbalizes technique to don/doff. Therapeutic Activities Therapeutic Activity Minutes (55601) 15 Symptoms noted during/after treatment fatigue Treatment [...] of timed and untimed services) 50 M [facility] Services OUTPATIENT OCCUPATIONAL THERAPY EVALUATION PLAN OF TREATMENT FOR OUTPATIENT REHABILITATION (COMPLETE FOR INITIAL CLAIMS ONLY) Patient's Last Name, First Name, M.I. Date of : 1960 Mora Avalos Provider's Name [facility] On[facility] Date: 03/25/23 Start of Care [...] - 03/26/2023 6:14 AM CDT Date/Time 03/25-03/26 6544-2056 AM Patient vital signs are at baseline: [...] Ruben Avilez - 03/25/2023 6:12 AM CDT QUALITY ENGINEER MEDICAL DEVICE medications completed by Medication Scribe day of [...] Medication Sig Last Dose Taking? Auth Provider Small Offset Printer End Date etanercept (ENBREL) 50 MG/ML injection [...] history completed by: Alfonso Avilez CPhT Medication [facility] documented in this encounter [...] PT - 03/25/2023 4:06 PM CDT 03/25/23 5613 Appointment Info Signing Clinician's Name / Credentials [...] Evaluation Time PT Eval, Low Complexity Minutes (78488) 10 Plan of Care Review Plan of [...] of timed and untimed services) 10 M [facility] OUTPATIENT PHYSICAL THERAPY EVALUATION PLAN OF TREATMENT FOR OUTPATIENT REHABILITATION (COMPLETE FOR INITIAL CLAIMS ONLY) Patient's Last Name, First Name, M.I. Date of : 1960 Mora Avalos Provider's Name [facility] Date: 03/25/23 Start of Care [...] review and certification of the therapy plan). OR POLICE LAUNCH COMMANDER Associated attestation - Cj Chen MD - 08/12/2023 8:23 AM HARBOR POLICE LAUNCH COMMANDER Agree with note * Pharmacy-Anticoagulation Service - Rohini Chua, [facility] - 03/25/2023 11:23 AM CDT Clinical Pharmacy [...] Chen MD - 03/25/2023 11:23 AM CDT [facility] Brief Operative Note Pre-operative diagnosis: Primary osteoarthritis [...] Implant Name Type Inv. Item Serial No. Ui Software Developer Lot No. LRB No. Used Action 6.5 mm Cannulated Screws, 16mm thread length 80mm SYNTHES 24 JAN 2021 Left 3 Explanted Titanium Washer, 13.0 mm SYNTHES 24 JAN 2021 [id number] Left 3 Explanted TRIDENT II TRITANIUM CLUSTERHOLE 52E - [id number] Total Joint Component/Insert TRIDENT II TRITANIUMCLUSTERHOLE 52E [employer] [id number] Left 1 Implanted INSERT JONATAN 36MM 0DEG X3 723-00-36E - [id number] Total Joint Component/Insert INSERT JONATAN 36MM 0DEG X3 723-00-36E [employer] [id number] Left 1 Implanted IMP STEM FEMORAL HIP STRK ACCOLADE II 132DEG SZ 5 1978-7643 - [id number] Total Joint Component/Insert IMP STEM FEMORAL HIP STRK ACCOLADE II 132DEG SZ 5 8190- 7300 [employer] [id number] Left 1 Implanted IMP HEAD FEMORAL STRK BIOLOX DELTA CERAMIC 36MM +2.5MM - [id number] Total Joint Component/Insert IMP HEAD FEMORAL STRK BIOLOX DELTA CERAMIC 36MM +2.5MM [employer] [id number] Left 1 Implanted * Op Note - Cj Chen MD - 03/25/2023 9:42 AM CDT Procedure Date: 03/25/2023 PREOPERATIVE DIAGNOSIS: Avascular necrosis, status post pinning of left femoral neck fracture. POSTOPERATIVE DIAGNOSIS: Avascular necrosis, status post pinning of left femoral neck fracture. PROCEDURES: 1. Left hip removal of hardware. 2. Left total hip arthroplasty. SURGEON: Cj Chen MD. CURRICULUM AND INSTRUCTION SPECIALIST: Vira Fernandes PA-C. ANESTHESIA: Spinal with sedation. [...] along the calcar. Trial reduction restored appropriate presybeterian of leg length, offset and stability. The size 5 Accolade II 132-degree neck angle hip stem wasopened and impacted, matching the patient's makah femoral version. Multiple trial reductions were p [...] yahaira Name: MORA AVALOS MRN: [id number] Account: [id number] : 1960 Procedure Date: 03/25/2023 Document: [id number] documented in this encounter Plan of Treatment [...] LAB - BLOOD ORDERABL ES LABORATORY [facility] [address] floor, [address] [place] [address], [facility] [phone] * (ABNORMAL) Hemoglobin (03/26/2023 9:36 AM CDT) Hemoglobin 10.2(L) 11.7 - 15.7 g/dL 03/26/2023 9:52 AM CDT LABORATORY Blood STRUCTURE OF LEFT UPPER LIMB / Unknown Venipuncture / Unknown 03/26/2023 9:36 AM CDT 03/26/2023 9:49 AM CDT Cj Chen MD LAB - BLOOD ORDERABL ES Performing Organization Address City/[facility]/ZIP Co de Phone Number LABORATORY [facility] [address], [address] [place] [address], [place] [phone] * (ABNORMAL) Glucose (03/26/2023 9:36 AM CDT) Glucose 123(H) 70 - 99 mg/dL 03/26/2023 10:23 AM CDT LABORATORY Patient Fasting > 8hrs? No 03/26/2023 10:23 AM CDT LABORATORY Blood STRUCTURE OF LEFT UPPER LIMB / Unknown Venipuncture / Unknown 03/26/2023 9:36 AM CDT 03/26/2023 9:49 AM CDT Cj Chen MD LAB - BLOOD ORDERABL ES Performing Organization Address City/[facility]/ZIP Co de Phone Number LABORATORY [facility] [address], [address] [place] [address], [place] [phone] * INR (03/25/2023 11:01 AM CDT) INR 1.02 0.85 - 1.15 03/25/2023 11:17 AM CDT LABORATORY Blood STRUCTURE OF LEFT UPPER LIMB / Unknown Venipuncture / Unknown 03/25/2023 11:01 AM CDT 03/25/2023 11:07 AM CDT Cj Chen MD LAB - BLOOD ORDERABL ES LABORATORY [facility] [address], [address] [place] [address], [place] [phone] * XR Pelvis w Hip Port Left 1 View (03/25/2023 9:54 AM CDT) Anatomical Region Laterality Modality Abdomen/Pelvis Left Digital Radiogra phy Impressions 03/25/2023 10:19 AM CDT IMPRESSION: Removal of hardware and left total hip arthroplasty. Negative for postoperative purposes. HUMBLE SANTIAGO DO SYSTEM ID: ??[id number] Narrative 03/25/2023 10:19 AM CDT EXAM: XR [...] postoperative purposes. HUMBLE SANTIAGO DO SYSTEM ID: [id number] Cj Chen MD IMG DIAGNOSTIC IMAGI NG [...] analgesic side effects. Hold while on IV LEASE OPERATOR or with regular IV opioid dosing. $Given [...] analgesic side effects. Hold while on IV LEASE OPERATOR or with regular IV opioid dosing. $Given [...] mL (ORTHO SANDRO CUSTOM DOSE) (COMPLETED) INTRA-ARTICULAR, HEALTH INFORMATION TECHNOLOGIST TO O.R., Starting on Tue03/25/23 at 0724, [...] analgesic side effects. Hold while on IV LEASE OPERATOR or with regular IV opioid dosing. 1325 (See Alternative - Provider: Saadia Rodriguez RN) 0002 ($Given - Provider: Krama Colón RN)0403 ($Given - Provider: Karma Colón [...] analgesic side effects. Hold while on IV LEASE OPERATOR or with regular IV opioid dosing. 1325 ($Given - Provider: Saadia Rodriguez RN) 0002 (See Alternative - Provider: Karma Colón RN)0403 (See Alternative - Provider: Karam Colón RN)0821 (See Alternative - Provider: April [...] analgesic side effects. Hold while on IV LEASE OPERATOR or with regular IV opioid dosing. Or oxyCODONE (ROXICODONE) tablet 10 mgJump to med 10 mg, Oral, EVERY 4 HOURS PRN, severe pain, Starting on Tue03/25/23 at 1043, Hold oral PRN dose for analgesic side effects. Notify provider to assess for uncontrolled pain or analgesic side effects. Hold while on IV LEASE OPERATOR or with regular IV opioid dosing. Group [...] documented as of this encounter Care Teams Through Freight Engineer Relationship Specialty Start Date End Date Case [address] [place] [address] PCP - General Family Medicine 01/25/21 documented as of this encounter
--- OUTSIDE RECORDS SUMMARY | 2023-10-12 13:53 | XMS_ITS | Encounter Summary ---
Author Name Unknown Organization [facility] Address [address] [place] [address] Care Team Providers Care Residency Program Coordinator Name Role Phone Case Gao Primary Care Provider [phone] Encounter Details Date Type Department Care Team [...] documented as of this encounter Care Teams Residency Program Coordinator Relationship Specialty Start Date End Date Case [address] [place] [address] PCP - General Family Medicine 01/25/21 documented as of this encounter
== END 2023-10-12 13:50 | disposition home or self-care (01) ==
LOC: WOUND 13:49
PROVIDERS: PCP Family Medicine; Visit Provider Surgery
DX: I87.2 Venous insufficiency (chronic) (peripheral) (principal); L97.815 Non-pressure chronic ulcer of other part of right lower leg with muscle involvement without evidence of necrosis; Z79.60 Long term (current) use of unspecified immunomodulators and immunosuppressants
CPT/HCPCS: 11042

== ENCOUNTER 2023-10-19 13:33 | Outpatient (CLI) | payer BC, SELFPAY | END 2023-10-19 13:34 | disposition home or self-care (01) | LOC: WOUND 13:33 | PROVIDERS: PCP Family Medicine; Visit Provider Surgery | DX: I87.2 Venous insufficiency (chronic) (peripheral) (principal); L97.812 Non-pressure chronic ulcer of other part of right lower leg with fat layer exposed; M06.9 Rheumatoid arthritis, unspecified; Z79.60 Long term (current) use of unspecified immunomodulators and immunosuppressants | CPT/HCPCS: 97597 ==

== ENCOUNTER 2023-10-26 13:39 | Outpatient (CLI) | payer BC, SELFPAY ==
--- OUTSIDE RECORDS SUMMARY | 2023-10-26 13:44 | XMS_ITS | Encounter Summary ---
Author Name Unknown Organization [facility] Address [address] [address] Phone Care Team Providers Care Tobacco Sorter Name Role Phone Unavailable Primary Care Provider [...]
--- OUTSIDE RECORDS SUMMARY | 2023-10-26 13:44 | XMS_ITS | Clinical Summary ---
Author Name Unknown Organization [facility] [employer] [facility] Address [address] [address] Phone Care Team Providers Care Equipment Installation Professional Name Role Phone Unavailable Primary Care Provider [...]
--- OUTSIDE RECORDS SUMMARY | 2023-10-26 13:44 | XMS_ITS | Clinical Summary ---
Author Name Unknown Organization [facility] Address [address] [place] [address] Care Team Providers Care Mercury Cell Cleaner Name Role Phone Case Gao Primary Care Provider [phone] Allergies Active Allergy Reactions Criticality Noted Date [...] (1 of 2) 1980 PAP 1982 LIPID 2001 Pneumococcal Vaccine: Pediatrics (0 to 5 Years) and At-Risk Patients (6 to 64 Years) (2 of 2 - PPSV23 or PCV20) 08/29/2014 07/04/2014 COVID-19 Vaccine (3 - Moderna risk series) 11/21/2020 10/24/2020, 09/26/2020 RSV VACCINE ( & 60+) (1 - 1-dose 60+ series) 2021 INFLUENZA VACCINE (#1) 2023 , 06/14/2019, 05/24/2018, Additional history exists PHQ-2 (once per calendar year) 2023 GLUCOSE 04/10/2026 04/10/2023, 08/0 02/2023, 04/09/2023, Additional history exists DTAP/TDAP/TD IMMUNIZATION (3 - Td or Tdap) [...] Octavia [employer]uch[employer] Implanted Type Area Electrophysiology Nurse Practitioner Device Identifier Shelf Expiration Date Model / Serial / Lot Insert Actb 42mm 28mm E Hip X3 Adm Strl Lf [facility] 7236-2-848 - [id number] Implanted:Qty: 1 on 04/08/2023 by Fazal Ramirez MD at [facility] Metallic Hardware/An chor Left: Hip MATTHEW [employer] [id number] 10/07/2027 7236-2-8 48 / / [id number] Trident Ii Tritanium Clusterhole 52e - [id number] Implanted:Qty: 1 on 03/25/2023 by Cj Chen MD at [facility] Total Joint Component/I nsert Left: Hip [employer] 12/29/2027 702-04-5 2E / / [id number] A Insert El 36mm 0deg X3 723-00-36e - [id number] Implanted:Qty: 1 on 03/25/2023 by Cj Chen MD at [facility] Total Joint Component/I nsert Left: Hip MATTHEW [employer]onto 12/24/2027 723-00-3 6E / / [id number] Imp Stem Fem Rstrtn Mod Bowed Conical [id number] 6276-7-219 - [id number] Implanted:Qty: 1 on 04/08/2023 by Fazal Ramirez MD at [facility] Total Joint Component/I nsert Left: Hip MATTHEW Fronto [id number] 02/14/2027 6276-7-2 19 / / [id number] Imp Insert Acet Strk Mdm Cocr Hip 0deg 42mm Sz E 626-00-42e - [id number] Implanted:Qty: 1 on 04/08/2023 by Fazal Ramirez MD at [facility] Total Joint Component/I nsert Left: Hip MATTHEW Fronto [id number] 01/13/2028 626-00-4 2E / / [id number] Imp Stem Fem Mod Rev Hip Prox Body/Egan 19mm +10 6276-1-119 - [id number] Implanted:Qty: 1 on 04/08/2023 by Fazal Ramirez MD at [facility] Total Joint Component/I nsert Left: Hip [employer] [id number] 08/15/2024 6276-1-1 19 / / [id number] Imp Head Femoral Strk Biolox Delta Ceramic 28mm +4mm - [id number] Implanted:Qty: 1 on 04/08/2023 by Fazal Ramirez MD at [facility] Total Joint Component/I nsert Left: Hip MATTHEW Fronto [id number] 10/31/2027 6570-0-2 28 / / [id number] Fibertape Cerclage, 2mm, 48 Implanted:Qty: 3 on 04/08/2023 by Fazal Ramirez MD at [facility] Left: Hip ARTHREX 06/04/2027 AR-7268 / / [id number] Fibertape Cerclage, 2mm, 48 Implanted:Qty: 1 on 04/08/2023 by Fazal Ramirez MD at [facility] Left: Hip ARTHREX 01/03/2028 AR-7268 / [id number] / Fibertape Cerclage, 2mm, 48 Implanted:Qty: 1 on 04/08/2023 by Fazal Ramirez MD at [facility] Left: Hip AR[employer]REX 11/03/2027 AR-7268 / / [id number] Explanted Type Area Electrophysiology Nurse Practitioner Device Identifier Shelf Expiration Date Model / Serial / Lot Imp Stem Femoral Hip Strk Accolade Ii 132deg Sz 5 9744-0810 - [id number] Implanted:Qty: 1 on 03/25/2023 by Cj Chen MD at [facility] Explanted:Qty: 1 on 04/08/2023 by Fazal Ramirez MD at [facility] Total Joint Component /Insert Left: Hip MATTHEW Fronto 03/03/2027 1188-9114 / / [id number] Imp Head Femoral Strk Biolox Delta Ceramic 36mm +2.5mm - [id number] Implanted:Qty: 1 on 03/25/2023 by Cj Chen MD at [facility] Explanted:Qty: 1 on 04/08/2023 by Fazal Ramirez MD at [facility] Total Joint Component /Insert Left: Hip [employer] 12/07/2027 6570-0-536 / / [id number] 6.5 Mm Cannulated Screws, 16mm Thread Length 80mm Implanted:Qty: 3 on 01/25/2021 by Cj Chen MD at [facility] Explanted:Qty: 3 on 03/25/2023 by Cj Chen MD at [facility] Left: Hip SYNTHES 408.411 24 JAN 2021 Titanium Washer, 13.0 Mm Implanted:Qty: 3 on 01/25/2021 by Cj Chen MD at [facility] Explanted:Qty: 3 on 03/25/2023 by Cj Chen MD at [facility] Left: Hip SYNTHES 419.99 24 JAN 2021 8002 Additional Health Concerns Problem Noted Date Diagnosed Date Total Joint Replacement Hip Pathway 03/15/2023 Advance Directives For more information, please contact: [phone] Latest Code Status on File Code Status [...] with patient/ legal decision maker Care Teams Mercury Cell Cleaner Relationship Specialty Start Date End Date Case [address] [place] [address] PCP - General Family Medicine 01/25/21
--- OUTSIDE RECORDS SUMMARY | 2023-10-26 13:44 | XMS_ITS | Encounter Summary ---
Author Name Unknown Organization [facility] [employer] [facility] Address [address] [address] Phone Care Team Providers Care Kiln Charger Name Role Phone Unavailable Primary Care Provider Unavailabl e Reason for Visit * Reason Comments Seizure- Prior Hx Of Encounter Details Date Type Department Care Team ([facility] st Contact Info) Description 01/12/2023 1:37 AM CDT - 01/12/2023 3:40 AM CDT Emergency [facility] Emergency Department [address] [place] [id number] Trent Augustine MD [address] [place] [id number] Status epilepticus (HCC) (Primary Dx); Acute respiratory [...] [place] HUC - 01/12/2023 2:38 AM CDT [employer] called with a no go on flight , will check with [facility] * Ed Park HUC - 01/12/2023 2:30 AM CDT Called [employer] to see check flight status. Will call back with go or no go * Ed [place] HUC - 01/12/2023 2:23 AM CDT Called [facility] to check bed status, connected Dr. Augustine to Dr. Gilliland * Trent Augustine MD - 01/12/2023 1:56 AM CDTAssociated Order(s): Intubation; Critical Care Post-Procedure Diagnose(s): Status epilepticus (HCC); Acute respiratory failure with hypoxia (HCC) [facility] Emergency Physician Note Date: 01/12/23 Patient [...] sugar was normal. Throughout the transport from [facility] where she is staying, she has slowly [...] time ingestions of acetaminophen is available in [employer]. SALICYLATE - Normal ALCOHOL - Normal MAGNESIUM - Normal PROTIME - Normal Narrative: Suggested therapeutic INR ranges for oral anticoagulant therapy: Category INR Value Prophylaxis 2.0-3.0 Treat Thrombosis or Embolism 2.0-3.0 Prosthetic Heart Valve 2.5-3.5 C-REACTIVE PROTEIN - Normal LEVETIRACETAM ([facility] ONLY) URINE DRUG SCREEN URINALYSIS, REFLEX [...] or life-threatening deterioration of the following conditions: DERRICK BARGE OPERATOR failure or compromise and respiratory failure Critical [...] the patient. Simultaneously, we reached out to [facility] for transfer to their ICU for status epilepticus as they have in- house continuous EEG capability and neurology coverage. Ultimately I intubated the patient with ketamine and succinylcholine, ketamine for his antiepileptic effect and succinylcholine to preserve her neurologic examination. The intubation was uncomplicated and tolerated well. I spoke with Dr. Gilliland, log chipper operator at [facility], who accepts the patient for transfer to [...] intracranial hemorrhage. I have low concern for DERRICK BARGE OPERATOR infection such as meningitis. Soft restraints were [...] time, the patient is being transferred to [facility]. Trent Augustine MD Emergency Medicine Trent Augustine [...] - 8 /HPF 01/12/2023 3:48 AM CDT [facility] Urine RBC's 3-8(A) 0 - 3 /HPF 01/12/2023 3:48 AM CDT [facility] Urine Bacteria Few(A) None Seen /HPF 01/12/2023 3:48 AM CDT [facility] Urine Hyaline Cast 3-8(A) 0 - 3 /LPF 01/12/2023 3:48 AM CDT [facility] Urine Squamous Epithelial Cells Moderate /HPF 01/12/2023 3:48 AM CDT [facility] Urine (Urine Straight Catheter) Non-blood collection / Unknown 01/12/2023 3:18 AM CDT 01/12/2023 3:22 AM CDT Narrative [facility] - 01/12/2023 3:48 AM CDT Urine Culture is not indicated. Trent Augustine MD EC URINE ORDERABLES [facility] [address] * (ABNORMAL) URINALYSIS, REFLEX TO CULTURE (01/12/2023 3:18 AM CDT) Urine Color Yellow Straw, Yellow, Kassie 01/12/2023 3:29 AM CDT [facility] Urine Appearance Clear Clear 01/12/2023 3:29 AM CDT [facility] Urine Specific English >=1.030 1.003 - 1.035 01/12/2023 3:29 AM CDT [facility] Urine pH 5.0 5.0 - 8.0 01/12/2023 3:29 AM CDT [facility] Urine Glucose Negative Negative 01/12/2023 3:29 AM CDT [facility] Urine Ketones Negative Negative 01/12/2023 3:29 AM CDT [facility] Urine Protein 100(A) Negative, Trace mg/dL 01/12/2023 3:29 AM CDT [facility] Urine Nitrites Negative Negative 01/12/2023 3:29 AM CDT [facility] Urine Leukocyte Esterase Negative Negative 01/12/2023 3:29 AM CDT [facility] Urine (Urine Straight Catheter) Non-blood collection / Unknown 01/12/2023 3:18 AM CDT 01/12/2023 3:22 AM CDT Trent Augustine MD EC URINE ORDERABLES [facility] [address] * (ABNORMAL) URINE DRUG SCREEN (01/12/2023 3:18 AM CDT) Urine Amphetamines Screen Negative Positive cut-off concentrati on: 1000 ng/mL 01/12/2023 3:42 AM CDT [facility] Urine Barbiturates Screen Negative Positive cut-off concentrati on: 200 ng/mL 01/12/2023 3:42 AM CDT [facility] Urine Benzodiazepines Screen Positive(A) Positive cut-off concentrati on: 200 ng/mL 01/12/2023 3:42 AM CDT [facility] Urine Buprenorphine Screen Negative Positive cut-off concentrati on: 5 ng/mL 01/12/2023 3:42 AM CDT [facility] Urine Cocaine Screen Negative Positive cut-off concentrati on: 300 ng/mL 01/12/2023 3:42 AM CDT [facility] Urine Methadone Screen Negative Positive cut-off concentrati on: 300 ng/mL 01/12/2023 3:42 AM CDT [facility] Urine Opiates Screen Negative Positive cut-off concentrati on:300 ng/mL 01/12/2023 3:42 AM CDT [facility] Urine Oxycodone Screen Negative Positive cut-off concentrati on: 300 ng/mL 01/12/2023 3:42 AM CDT [facility] Urine Phencyclidine (PCP) Screen Negative Positive cut-off concentrati on: 25 ng/mL 01/12/2023 3:42 AM CDT [facility] Urine Carboxy-THC Screen Negative Positive cut-off concentrati on: 50 ng/mL 01/12/2023 3:42 AM CDT [facility] Urine (Urine Straight Catheter) Non-blood collection / Unknown 01/12/2023 3:18 AM CDT 01/12/2023 3:22 AM CDT Narrative [facility] - 01/12/2023 3:42 AM CDT [...] MD EC URINE ORDERABLES Performing Organization Address City/State/[facility] Co de Phone Number [facility] [address] [place] [address] * Intubation (01/12/2023 3:02 AM CDT) Narrative [...] - 3.99 uIU/mL 01/12/2023 2:46 AM CDT [facility] Blood BLOOD SPECIMEN / Unknown Venipuncture / Unknown 01/12/2023 2:01 AM CDT 01/12/2023 2:04 AM CDT Trent Augustine MD EC CHEMISTRY ORDERAB LES ABN Performing Organization Address City/[facility] Co de Phone Number [facility] [address] [place] [address] * (ABNORMAL) LEVETIRACETAM ([facility]) (01/12/2023 2:01 AM CDT) Pathologist [facility] KEPPRA <2(L) 6 - 46 ug/mL 01/12/2023 3:29 AM CDT [facility] Blood BLOOD SPECIMEN / Unknown Venipuncture / Unknown 01/12/2023 2:01 AM CDT 01/12/2023 2:04 AM CDT Trent Augustine MD EC CHEMISTRY ORDERAB LES Performing Organization Address City/[facility] Co de Phone Number [facility] [address] [place] [address] * (ABNORMAL) VENOUS BLOOD GASES (01/12/2023 2:01 AM CDT) pH, Venous 7.10(LL) 7.35 - 7.45 01/12/2023 2:13 AM CDT [facility] pCO2, Venous 44 38 - 50 mmHg 01/12/2023 2:13 AM CDT [facility] Bicarbonate (HCO3), Venous 14(L) 23 - 27 mEq/L 01/12/2023 2:13 AM CDT [facility] Base Excess, Venous -16.0(L) -2.0 - 2.0 01/12/2023 2:13 AM CDT [facility] PATIENT TEMPERATURE FOR BLOOD GAS PH, PCO2, PO2 DATA CONVERSION 37.0 C 01/12/2023 2:13 AM CDT [facility] Blood BLOOD SPECIMEN / Unknown Venipuncture / Unknown 01/12/2023 2:01 AM CDT 01/12/2023 2:04 AM CDT Trent Augustine MD EC CHEMISTRY ORDERAB LES Performing Organization Address [facility] de Phone Number [facility] [address] [place] [address] * (ABNORMAL) LACTIC ACID, VENOUS (01/12/2023 2:01 AM CDT) Lactic Acid, Venous 12.6(HH) 0.5 - 2.0 mmol/L 01/12/2023 2:25 AM CDT [facility] Blood BLOOD SPECIMEN / Unknown Venipuncture / Unknown 01/12/2023 2:01 AM CDT 01/12/2023 2:04 AM CDT Trent Augustine MD EC CHEMISTRY ORDERAB LES Performing Organization Address City/[facility] Co de Phone Number [facility] [address] [place] [address] * C-REACTIVE PROTEIN (01/12/2023 2:01 AM CDT) C-Reactive Protein 0.2 0.0 - 0.8 mg/dL 01/12/2023 2:25 AM CDT [facility] Blood BLOOD SPECIMEN / Unknown Venipuncture / Unknown 01/12/2023 2:01 AM CDT 01/12/2023 2:04 AM CDT Trent Augustine MD EC CHEMISTRY ORDERAB LES [facility] [address] * (ABNORMAL) COMPREHENSIVE METABOLIC PANEL (01/12/2023 2:01 AM CDT) Pathologist [facility] Sodium 137 134 - 143 mEq/L 01/12/2023 2:25 AM CDT [facility] Potassium 4.0 3.4 - 5.1 mEq/L 01/12/2023 2:25 AM CDT [facility] Chloride 105 99 - 110 mEq/L 01/12/2023 2:25 AM CDT [facility] Carbon Dioxide 13(L) 19 - 29 mEq/L 01/12/2023 2:25 AM CDT [facility] Anion Gap 19.0(H) 3.0 - 15.0 mEq/L 01/12/2023 2:25 AM CDT [facility] Blood Urea Nitrogen 15 5 - 24 mg/dL 01/12/2023 2:25 AM CDT [facility] Creatinine 0.84 0.40 - 1.00 mg/dL 01/12/2023 2:25 AM CDT [facility] Glomerular Filtration Rate 79 >60 mL/min/1. 73 m*2 01/12/2023 2:25 AM CDT [facility] Comment:Risk of cardiovascul ar disease increases when GFR is abnormal; persistently reduced GFR values are a specific indication of CKD. This calculation uses CKD- EPI 2020 equation without adjustment for race; it has not been validated in women. Calcium 9.6 8.4 - 10.5 mg/dL 01/12/2023 2:25 AM CDT [facility] Glucose 138(H) 70 - 99 mg/dL 01/12/2023 2:25 AM CDT [facility] Protein, Total 7.6 6.0 - 8.0 g/dL 01/12/2023 2:25 AM CDT [facility] Albumin 4.2 3.5 - 5.0 g/dL 01/12/2023 2:25 AM CDT [facility] Alkaline Phosphatase 68 40 - 150 IU/L 01/12/2023 2:25 AM CDT [facility] Aspartate Aminotransferase 21 10 - 40 IU/L 01/12/2023 2:25 AM CDT [facility] Alanine Aminotransferase 18 6 - 31 IU/L 01/12/2023 2:25 AM CDT [facility] Bilirubin, Total 0.5 0.2 - 1.2 mg/dL 01/12/2023 2:25 AM CDT [facility] Blood BLOOD SPECIMEN / Unknown Venipuncture / Unknown 01/12/2023 2:01 AM CDT 01/12/2023 2:04 AM CDT Narrative [facility] - 01/12/2023 2:25 AM CDT Current ADA criteria for Glucose: ?Normal: 70-99 mg/dL ?Impaired Fasting Glucose: 100-125 mg/dL ?Diabetes Mellitus: at or above 126 mg/dL The diagnosis of diabetes must be confirmed on a subsequent day by measuring Fasting Plasma Glucose, 2-hr PG or random plasma glucose (if symptoms are present). Trent Augustine MD EC CHEMISTRY ORDERAB LES [facility] [address] * PROTIME (01/12/2023 2:01 AM CDT) INR 1.1 0.9 - 1.1 01/12/2023 2:16 AM CDT [facility] Protime 13.7 12.0 - 14.1 sec 01/12/2023 2:16 AM CDT [facility] Blood BLOOD SPECIMEN / Unknown Venipuncture / Unknown 01/12/2023 2:01 AM CDT 01/12/2023 2:04 AM CDT Narrative [facility] - 01/12/2023 2:16 AM CDT Suggested therapeutic INR ranges for oral anticoagulant therapy: Category ? INR Value Prophylaxis ?2.0-3.0 Treat Thrombosis or Embolism ? 2.0-3.0 Prosthetic Heart Valve ? 2.5-3.5 Trent Augustine MD EC HEMATOLOGY ORDERA BLES Performing Organization Address City/State/[facility] Co de Phone Number [facility] [address] [place] [address] * (ABNORMAL) HEMOGRAM/DIFFERENTIAL (01/12/2023 2:01 AM CDT) WBC 7.2 3.2 - 11.0 10*9/L 01/12/2023 2:07 AM CDT [facility] RBC 4.37 3.77 - 5.24 10*12/L 01/12/2023 2:07 AM CDT [facility] HGB 14.1 11.2 - 15.5 g/dL 01/12/2023 2:07 AM CDT [facility] HCT 42.6 34.3 - 46.0 % 01/12/2023 2:07 AM CDT [facility] MCV 97.5 81.4 - 99.0 fL 01/12/2023 2:07 AM CDT [facility] MCH 32.3 26.7 - 33.1 pg 01/12/2023 2:07 AM CDT [facility] MCHC 33.1 31.6 - 35.5 g/dL 01/12/2023 2:07 AM [facility] RDW 13.6 11.3 - 14.6 % 01/12/2023 2:07 AM [facility] PLT 218 130 - 375 10*9/L 01/12/2023 2:07 AM [facility] Neutrophils % 55.4 % 01/12/2023 2:07 AM [facility] Lymphocytes % 30.6 % 01/12/2023 2:07 AM [facility] Monocytes % 13.7 % 01/12/2023 2:07 AM [facility] Eosinophils % 0.0 % 01/12/2023 2:07 AM [facility] Basophils % 0.0 % 01/12/2023 2:07 AM [facility] Immature Granulocytes % 0.3 % 01/12/2023 2:07 AM [facility] Neutrophils Absolute 4.0 1.5 - 7.6 10*9/L 01/12/2023 2:07 AM [facility] Lymphocytes Absolute 2.2 0.8 - 3.3 10*9/L 01/12/2023 2:07 AM [facility] Monocytes Absolute 1.0(H) 0.2 - 0.9 10*9/L 01/12/2023 2:07 AM [facility] Eosinophils Absolute 0.0 0.0 - 0.4 10*9/L 01/12/2023 2:07 AM [facility] Basophils Absolute 0.0 0.0 - 0.1 10*9/L 01/12/2023 2:07 AM [facility] Immature Granulocytes Absolute 0.02 0.00 - 0.06 10*9/L 01/12/2023 2:07 AM [facility] Blood BLOOD SPECIMEN / Unknown Venipuncture / Unknown 01/12/2023 2:01 AM CDT 01/12/2023 2:04 AM CDT Trent Augustine MD EC HEMATOLOGY ORDERA BLES Performing Organization Address City/[facility]/ZIP Co de Phone Number [facility] [address] [place] [address] * MAGNESIUM (01/12/2023 2:01 AM CDT) Magnesium 2.1 1.8 - 2.7 mg/dL 01/12/2023 2:25 AM CDT [facility] Blood BLOOD SPECIMEN / Unknown Venipuncture / Unknown 01/12/2023 2:01 AM CDT 01/12/2023 2:04 AM CDT Trent Augustine MD EC CHEMISTRY ORDERAB LES Performing Organization Address [facility] Co de Phone Number [facility] [address] [place] [address] * ALCOHOL (01/12/2023 2:01 AM CDT) Alcohol <10.0 <=10.0 mg/dL 01/12/2023 2:25 AM CDT [facility] Blood BLOOD SPECIMEN / Unknown Venipuncture / Unknown 01/12/2023 2:01 AM CDT 01/12/2023 2:04 AM CDT Trent Augustine MD EC CHEMISTRY ORDERAB LES Performing Organization Address [facility] Co de Phone Number [facility] [address] [place] [address] * SALICYLATE (01/12/2023 2:01 AM CDT) Salicylate <5 <=25 mg/dL 01/12/2023 2:25 AM CDT [facility] Blood BLOOD SPECIMEN / Unknown Venipuncture / Unknown 01/12/2023 2:01 AM CDT 01/12/2023 2:04 AM CDT Trent Augustine MD EC CHEMISTRY ORDERAB LES Performing Organization Address [facility] Phone Number [facility] [address] [place] [address] * ACETAMINOPHEN (01/12/2023 2:01 AM CDT) Acetaminophen 28 <=30 ug/mL 01/12/2023 2:25 AM CDT [facility] Blood BLOOD SPECIMEN / Unknown Venipuncture / Unknown 01/12/2023 2:01 AM CDT 01/12/2023 2:04 AM CDT Narrative [facility] - 01/12/2023 2:25 AM CDT Call Poison Control Center ( ) for guidance in interpretation of results. The Yash nomogram for single, one time ingestions of acetaminophen is available in [employer]. Trent Augustine MD EC CHEMISTRY ORDERAB LES Performing Organization Address [facility] Phone Number [facility] [address] [place] [address] * Critical Care (01/12/2023 1:56 AM CDT) [...] or life-threatening deterioration of the following conditions: ??DERRICK BARGE OPERATOR failure or compromise and respiratory failure ??Critical [...] EKG 12-LEAD (01/12/2023 1:56 AM CDT) Pathologist [facility] Ventricular Rate 141 BPM MUSE Atrial Rate 141 BPM MUSE P-R Interval 130 ms MUSE QRS Duration 86 ms MUSE QT 290 ms MUSE QTc 445 ms MUSE R [place] 29 degrees MUSE T [place] 71 degrees MUSE 01/12/2023 1:56 AM CDT [...]
--- OUTSIDE RECORDS SUMMARY | 2023-10-26 13:44 | XMS_ITS | Referral Summary ---
Author Name Unknown Organization [place] Address [address] [place] [address] Care Team Providers Care Churner Name Role Phone Case Gao Primary Care Provider [phone] Allergies Active Allergy Reactions Criticality Noted Date [...] Octavia Beauch[employer] Medical Devices Implanted Type Area Pi/Senior Research Associate Device Identifier Shelf Expiration Date Model / Serial / Lot Insert Actb 42mm 28mm E Hip X3 Adm Strl Lf Mdm 7236-2-848 - [id number] Implanted:Qty: 1 on 04/08/2023 by Fazal Ramirez MD at [facility] Metallic Hardware/An chor Left: Hip MATTHEW [employer] [id number] 10/07/2027 7236-2-8 48 / / [id number] Trident Ii Tritanium Clusterhole 52e - [id number] Implanted:Qty: 1 on 03/25/2023 by Cj Chen MD at [facility] Total Joint Component/I nsert Left: Hip [employer] 12/29/2027 702-04-5 2E / / [id number] A Insert El 36mm 0deg X3 723-00-36e - [id number] Implanted:Qty: 1 on 03/25/2023 by Cj Chen MD at [facility] Total Joint Component/I nsert Left: Hip MATTHEW [employer] 12/24/2027 723-00-3 6E / / [id number] Imp Stem Fem Rstrtn Mod Bowed Conical 70y777rs 6276-7-219 - [id number] Implanted:Qty: 1 on 04/08/2023 by Fazal Ramirez MD at [facility] Total Joint Component/I nsert Left: Hip MATTHEW [employer] [id number] 02/14/2027 6276-7-2 19 / / [id number] Imp Insert Acet Strk Mdm Cocr Hip 0deg 42mm Sz E 626-00-42e - [id number] Implanted:Qty: 1 on 04/08/2023 by Fazal Ramirez MD at [facility] Total Joint Component/I nsert Left: Hip [employer] [id number] 01/13/2028 626-00-4 2E / / [id number] Imp Stem Fem Mod Rev Hip Prox Body/[place] 19mm +10 6276-1-119 - [id number] Implanted:Qty: 1 on 04/08/2023 by Fazal Ramirez MD at [facility] Total Joint Component/I nsert Left: Hip [employer] [id number] 08/15/2024 6276-1-1 19 / / [id number] Imp Head Femoral Strk Biolox Delta Ceramic 28mm +4mm - [id number] Implanted:Qty: 1 on 04/08/2023 by Fazal Ramirez MD at [facility] Total Joint Component/I nsert Left: Hip [employer] [id number] 10/31/2027 6570-0-2 28 / / [id number] Fibertape Cerclage, 2mm, 48 Implanted:Qty: 3 on 04/08/2023 by Fazal Ramirez MD at [facility] Left: Hip AR[employer]REX 06/04/2027 AR-7268 / / [id number] Fibertape Cerclage, 2mm, 48 Implanted:Qty: 1 on 04/08/2023 by Fazal Ramirez MD at [facility] Left: Hip AR[employer]REX 01/03/2028 AR-7268 / [id number] / Fibertape Cerclage, 2mm, 48 Implanted:Qty: 1 on 04/08/2023 by Fazal Ramirez MD at [facility] Left: Hip ARTHREX 11/03/2027 AR-7268 / / [id number] Explanted Type Area Pi/Senior Research Associate Device Identifier Shelf Expiration Date Model / Serial / Lot Imp Stem Femoral Hip Strk Accolade Ii 132deg Sz 5 7703-8356 - [id number] Implanted:Qty: 1 on 03/25/2023 by Cj Chen MD at [facility] Explanted:Qty: 1 on 04/08/2023 by Fazal Ramirez MD at [facility] Total Joint Component /Insert Left: Hip [employer] 03/03/2027 6949-3041 / / [id number] Imp Head Femoral Strk Biolox Delta Ceramic 36mm +2.5mm - [id number] Implanted:Qty: 1 on 03/25/2023 by Cj Chen MD at [facility] Explanted:Qty: 1 on 04/08/2023 by Fazal Ramirez MD at [facility] Total Joint Component /Insert Left: Hip [employer] 12/07/2027 6570-0-536 / / [id number] 6.5 Mm Cannulated Screws, 16mm Thread Length 80mm Implanted:Qty: 3 on 01/25/2021 by Cj Chen MD at [facility] Explanted:Qty: 3 on 03/25/2023 by Cj Chen MD at [facility] Left: Hip SYNTHES 408.411 24 JAN 2021 Titanium Washer, 13.0 Mm Implanted:Qty: 3 on 01/25/2021 by Cj Chen MD at [facility] Explanted:Qty: 3 on 03/25/2023 by Cj Chen MD at [facility] Left: Hip SYNTHES 419.99 24 JAN 2021 [id number] Additional Health Concerns Problem Noted Date Diagnosed Date Total Joint Replacement Hip Pathway 03/15/2023 Advance Directives For more information, please contact: [phone] Latest Code Status on File Code Status [...] with patient/ legal decision maker Care Teams Churner Relationship Specialty Start Date End Date Case Gao [address] [place] [address] PCP - General Family Medicine 01/25/21
--- OUTSIDE RECORDS SUMMARY | 2023-10-26 13:44 | XMS_ITS | Clinical Summary ---
Author Name Unknown Organization [facility] Address [place], [place] [address] Care Team Providers Care Embedded Systems Developer Name Role Phone Case Gao MD Primary Care Provider Allergies Active Allergy Reactions Criticality Noted Date Comments Aspirin Edema 11/26/2006 Medications Medication Sig Dispensed Refills Start Date End Date Status folic acid 1 mg tabletIndications :Rheumatoid arthritis(714.0) TAKE 1 TABLET DAILY 90 tablet 3 02/11/2016 Active etanercept (EnbreL SureClick) 50 mg/mL (1 mL) pen injector Inject 50 mg subcutaneous every Tuesday. 0 Active methotrexate (RHEUMATREX) 2.5 mg tablet Take 25 mg by mouth every Tuesday. 0 Active hydrOXYchloroQUIN E (PlaqueniL) 200 mg tablet Take 400 mg by mouth once daily. 0 Active oxyCODONE (ROXICODONE) 5 mg immediate release tabletIndications :Hip pain, left Take 1 Tablet (5 mg) by mouth every 6 hours if needed for Pain. 20 Tablet 0 03/21/2023 Active levETIRAcetam (KEPPRA) 500 mg tabletIndications :Altered mental status, unspecified altered mental status type TAKE 2 TABLETS TWICE A DAY 360 Tablet 3 04/22/2023 Active lisinopril-hydroc hlorothiazide (10-12.5 mg) tablet (PRINZIDE; ZESTORETIC)Indica tions:Essential hypertension TAKE 1 TABLET BY MOUTH EVERY DAY 90 Tablet 2 04/25/2023 Active venlafaxine (EFFEXOR) 75 mg tabletIndications :Depression, unspecified depression type TAKE 3 TABLETS TWICE A DAY 540 Tablet 0 10/17/2023 Active venlafaxine (EFFEXOR XR) 150 mg Extended-Release capsuleIndication s:Depression, unspecified depression type Take 2 Capsules (300 mg) by mouth once daily with evening meal. 180 Capsule 0 10/20/2023 Active venlafaxine (EFFEXOR) 75 mg tabletIndications :Depression, unspecified depression type TAKE 3 TABLETS TWICE A DAY 540 Tablet 0 07/19/2023 4 Discontinu ed(Reorder (E-cancel not sent)) Active Problems Problem Noted Date Diagnosed Date Seizure (HC) Diagnosed 02/2022. 01/19/2023 Seropositive rheumatoid arthritis of multiple si yuliya [...] extr emities with ulcer and inflammation 11/23/2012 Goiter, unspecified 07/28/2012 Iron deficiency anemia, unspecified [...] Problem Noted Date Diagnosed Date Resolved Date Breakthrough seizure 01/202301/19/2023 10/20/2023 Routine adult health maintenance 09/21/2013 03/31/2018 Overview: Colonoscopy 09/2013 normal repeat in 10 years Rheumatoid arthritis(714.0) 07/28/2012 10/20/2023 Anemia, unspecified 07/28/2012 10/23/19 Possible pulmonary alveolar hemorrhage 06/24/2012 10/23/2019 Hemoptysis 06/23/2012 10/23/2019 Left shoulder pain 04/21/2009 Bulimia 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 10/14/2008 01/27/2021 Obesity, unspecified 11/26/2006 014 Encounters Date Type Department Care Team Description 10/20/2023 4:10 PM [employer]OD [employer]I [employer] Office Visit [place] [address] [place] [address] Case Gao MD Medication Management 10/20/2023 Travel 10/18/2023 Orders Only [facility] [address] [place] [address] Case Gao MD Outside Order (Ordered by Sarah Hilton) 10/17/2023 Telephone [facility] [address] [place] [address] [address] Case Gao MD Medication Management (venlafaxine (EFFEXOR) [...] PHQ-2 Answer Date Recorded PHQ-2 TOTAL SCORE 2 10/20/2023 Social Connections Answer Date Recorded Frequency of [...] Sign Reading Time Taken Comments Blood Pressure 116/76 10/20/2023 3:51 PM WOOD SKI [employer]ER Pulse 74 10/20/2023 3:51 PM WOOD SKI [employer]KER Temperature 36.7 ??C (98.1 ??F) 04/13/2023 7:48 AM CD T Respiratory Rate 16 02/27/2022 11:58 AM CDT Oxygen Saturation 100% 10/20/2023 3:51 PM WOOD SKI MA[employer]ER Inhaled Oxygen Concentration - - Weight 92.1 kg (203 lb) 10/20/2023 3:51 PM WOOD SKI [employer] Height 169.4 cm (5' 6.69) 03/21/2023 9:18 AM CD T Body Mass Index 32.09 03/21/2023 9:18 AM CDT Plan of Treatment Upcoming Encounters Date Type Department Care Team (Late st Contact Info) Description 10/27/2023 7:45 AM WOOD SKI MAKER Orders Only [facility] [address] [place] [address] [place], [place] 12/19/2023 2:30 PM CDT Office Visit [facility] [address] [place] [address] Gao, MD [address] [facility] [address] Health Maintenance Due Date Last Done Comments [...] history exists Depression screening for age 12+ 10/20/2024 10/20/2023, 03/22/2023, 03/21/2023, Additional history exists Lipids for age 45-75 [...] 5:55 PM 06/24/2012 4:41 PM Care Teams Embedded Systems Developer Relationship Specialty Start Date End Date Case Gao MD [address] [place] [address] PCP - General 11/28/06
--- OUTSIDE RECORDS SUMMARY | 2023-10-26 13:45 | XMS_ITS | Encounter Summary ---
Author Name Unknown Organization [facility] Address [address] [place] [address]. [place] [address] Care Team Providers Care Sales Ledger Clerk Name Role Phone GaoCase nieves Primary Care Provider [phone] Reason for Visit * Auth/Cert (Routine) Specialty Diagnoses / Procedures Referred By Konstantin katz Referred To Contact Surgery Diagnoses Periprosthetic hip fracture, initial encounter Periprosthetic hip fracture, initial encounter Rh Preop/Postop [address] [place] [address] Referral ID Status Reason Start Date Expiration Date Visits Re quested Visits Authorized [id number] 1 1 Encounter Details Date Type Department Care Team (Late st Contact Info) Description 04/08/2023 9:52 AM CDT Anesthesia Event [facility] [address] [place] [address] Hunter Philip MD [facility] [place] ANESTHESIA [address] [place], [place] [address] Evelyn Sanchez APRN SCIENTIST [facility] [place], [place] [id number] Anesthesia Record Procedure Summary Procedure Name Responsible Anesthesiologist Anesthesia Start Time Anesthesia Stop Time LEFT TOTAL HIP ARTHROPLASTY REVISION AND OPEN REDUCTION INTERNAL FIXATION PROXIMAL FEMUR (Left: Hip) Hunter Philip MD 04/08/23 0952 04/08/23 1517 Events Date Time Event Comment 04/08/2023 0857 0913 SCIENTIST Ready for Procedure 0952 An Start 0954 An Start Data 0954 AN REASSESS I attest that I have identified and re-evaluated the patient immediately before the induction of anesthesia and I am satisfied that the anesthetic plan is suitable for the patient's condition and procedure. The first vital signs recorded are pre- induction. Evelyn Sanchez APRN SCIENTIST 0958 An Induction 1000 An Intubation 1001 Anesthesia Ready for Procedu re 1003 MD Present 1011 MD Present 1102 MD Present 1157 MD Present 1241 MD Present 1331 MD Present 1424 MD Present 1512 AN Extubation All extubation criteria met prior to removal. 1512 an stop data 1517 An Stop Electronically signed by Hunter Rodriguez APRN SCIENTIST on April 08, 2023 3:17 PM 1517 [...] Tube Size: 7 mm; VL Blade Size: [place] scope 3; Grade View: 1; Placement Person: SCIENTIST; Attempts: 1; Depth: 22 cm 04/08/23 1000 by Evelyn Sanchez APRN SCIENTIST 04/08/23 1512 by Hunter Rodriguez APRN CRNA [...] Anesthesia Procedure Notes - Evelyn Sanchez APRN SCIENTIST - 04/08/2023 10:33 AM CDTAssociated Order(s): Airway Airway Patient location during procedure: OR Procedure Start/Stop Times: 04/08/2023 10:00 AM Staff - SCIENTIST: Evelyn Sanchez APRN CRNA Performed By: CRNAIndications [...] SH OR CARPAL TUNNEL RELEASE RT/LT Bilateral STEEL HANDLER SURGERY c section x 3 OPEN REDUCTION [...] and realistic alternatives discussed. Questions answered and patient/professional healthcare representative(s) expressed understanding. - Discussed: - Discussed [...] Care Transfer Note - Hunter Rodriguez APRN SCIENTIST - 04/08/2023 3:17 PM CDT Patient: Mora [...] Times: 04/08/2023 10:00 AM Staff - ? SCIENTIST: Evelyn Sanchez APRN CRNA ? Performed By: [...] documented as of this encounter Care Teams Sales Ledger Clerk Relationship Specialty Start Date End Date Case Gao [address] [place] [address] PCP - General Family Medicine 01/25/21 documented as of this encounter
--- OUTSIDE RECORDS SUMMARY | 2023-10-26 13:45 | XMS_ITS | Encounter Summary ---
Author Name Unknown Organization [facility] Address [address] [place] [address]. [place] [address] Care Team Providers Care Science Technicians Name Role Phone Sima Case Sierra Primary Care Provider [phone] Reason for Visit * Reason Comments Hip Pain * Auth/Cert (Routine) Specialty Diagnoses / Procedures Referred By Konstantin t Referred To Contact Surgery Diagnoses Periprosthetic hip fracture, initial encounter Periprosthetic hip fracture, initial encounter Rh Preop/Postop [address] [place] [address] Referral ID Status Reason Start Date Expiration Date Visits Re quested Visits Authorized [id number] 1 1 Encounter Details Date Type Department Care Team (Late st Contact Info) Description 04/07/2023 2:25 PM CDT - 04/12/2023 11:32 AM CDT Hospital Encounter [facility] Ortho Spine [address] [place] [address] Rusty Schultz PA-C [facility] [address] [place] [address] Deyanira Locke MD [address] [...] 04/12/2023 11:32 AM CDT Physician Discharge Summary [place] Hospitalist Discharge Summary-[facility] Name: Mora [...] Location: OR CARPAL TUNNEL RELEASE RT/LT Bilateral STAFFING DIRECTOR SURGERY c section x 3 OPEN REDUCTION [...] DOSE WARFARIN PAIN MANAGEMENT ADULT IP CONSULT [facility] IP CONSULT PHYSICAL [...] your medicines These medications were sent to [place], [place] - [address] [facility] [address] [facility] [address] ferrous sulfate 325 (65 Fe) MG EC [...] return or gets worse. Follow up with advertising sales consultant as instructed with ortho Other [...] partially visualized. JEROD YEAGER MD SYSTEM ID: [id number] XR Surgery RAAD L/T 5 Min Fluoro w Stills Narrative This exam was marked as non-reportable because it will not be read by a radiologist or a [facility] non-radiologist provider. XR Pelvis w Hip Port [...] alignment. Osteopenia. POLO GARCIA MD SYSTEM ID: [id number] CT Pelvis Soft Tissue w Contrast Narrative EXAM: CT PELVIS SOFT TISSUE W CONTRAST LOCATION: [facility] DATE: 04/10/2023 INDICATION: Hgb 9 [...] clinic in [address] Ramirez's care consultant is Dede Sadler. Please contact her at [phone] to schedule an appointment[address]. Ramirez sees patient's at 2 clinic locations: [facility] Orthopedics [facility] [address] [place] [id number] [place] [address] Orthopedics - [place] [address], [address], [place] [address] Please call the on-call phone number [phone] during evenings, nights and weekends for any questions or concerns! Please call with any questions or concerns! documented in this encounter Medications at Time of Discharge Medication Sig Dispensed Refills Start Date End Date acetaminophen (TYLENOL) 325 MG tabletIndications:Per iprosthetic hip fracture, initial encounter Take 3 tablets (975 mg) by mouth every 8 hours as needed for mild pain 60 tablet 0 04/10/2023 etanercept (ENBREL) 50 MG/ML injection Inject 50 mg Subcutaneous once a week Wednesdays 0 folic acid (FOLVITE) 1 MG tablet Take 1 mg by mouth daily 0 HYDROmorphone (DILAUDID) 2 MG tabletIndications:Per iprosthetic hip fracture, initial encounter Take 1 tablet (2 mg) by mouth every 3 hours as needed for severe pain 20 tablet 0 04/10/2023 hydroxychloroquine (PLAQUENIL) 200 MG tablet Take 2 [...] 1 tablet by mouth as needed 0 senna-docusate (SENOKOT-S/PERICOLACE ) 8.6-50 MG tabletIndications:Per iprosthetic hip fracture, initial encounter Take 1 tablet by mouth 2 times daily as needed for constipation 0 04/11/2023 venlafaxine (EFFEXOR) 75 MG tablet Take 3 tablets by mouth 2 times daily (3 x 75 mg = 225 mg) 0 warfarin ANTICOAGULANT (COUMADIN) 2.5 MG tabletIndications:Sta tus [...] confirm recommendations regarding resuming her RA meds. ([phone]) 2. Disposition Anticipate d/c to home. Ortho [...] CM informed patient she was accepted at [facility], she stated she no longer wanted to go to TCU and would prefer to go home with outpatient PT. She would like to go to [facility] for PT on [facility] in [place]. She stated her can transport her and she is eager to discharge today. CM called and informed [facility] patient declined TCU placement. Hospitalist, charge nurse, and bedside nurse notified. Nesha Ross RN, BSN Inpatient Care Coordination [facility] [phone] * Trini Torres PA-C - 04/11/2023 11:12 [...] changed at bedside today by Dr Ramirez ([facility]) Minimal erythema of the surrounding skin. Bilateral [...] from the original note were not included. [facility] Hospitalist Progress Note Jonathan Linn M.D., [...] partially visualized. JEROD YEAGER MD SYSTEM ID: [id number] XR Surgery RAAD L/T 5 Min Fluoro w Stills Narrative This exam was marked as non-reportable because it will not be read by a radiologist or a [facility] non-radiologist provider. XR Pelvis w Hip Port [...] alignment. Osteopenia. POLO GARCIA MD SYSTEM ID: [id number] COVID Status: COVID-19 PCR Results 04/10/2021 09:25 [...] from the original note were not included. [facility] Hospitalist Progress Note Jonathan Linn M.D., [...] partially visualized. JEROD YEAGER MD SYSTEM ID: [id number] XR Surgery RAAD L/T 5 Min Fluoro w Stills Narrative This exam was marked as non-reportable because it will not be read by a radiologist or a [facility] non-radiologist provider. XR Pelvis w Hip Port [...] alignment. Osteopenia. 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 She is close with her , Dell, who is a teacher education instructor. Meaning, Beliefs, and Spirituality - Pt reports that her vicki is very important for her. She identifies as Mu-Is[employer] - [employer]. She experiences God's love and justina in her life, and this is a major support for her. Mora prioritizes reading scripture and feels moved by sermons that get to the root of the Gospel message. She welcomed prayer with me. Plan of Care - I and other chaplains remain available for further support. I informed pt on how to request a messenger floorperson should further support be needed. Karoline Martinez Unit Assistant Aboriginal Education Teacher [facility] routine referrals *[id number] [facility] available 28/03 for emergent requests/referrals, either by paging the on-call messenger floorperson or by entering an HOWIE/STAT consult in [facility] (this will also page the on-call messenger floorperson). * Vira Fernandes PA-C - 04/10/2023 10:07 [...] from the original note were not included. [facility] Hospitalist Progress Note Jonathan Linn M.D., [...] partially visualized. JEROD YEAGER MD SYSTEM ID: [id number] XR Surgery RAAD L/T 5 Min Fluoro w Stills Narrative This exam was marked as non-reportable because it will not be read by a radiologist or a [facility] non-radiologist provider. XR Pelvis w Hip Port [...] alignment. Osteopenia. POLO GARCIA MD SYSTEM ID: [id number] COVID Status: COVID-19 PCR Results 04/10/2021 09:25 [...] flowsheet Bed Mobility Bed Mobility supine-sit;sit-supine Supine-Sit Kay (Bed Mobility) minimum assist (75% patient effort) Sit-Supine Kay (Bed Mobility) minimum assist (75% patient effort) [...] Evaluation Time OT Elizabeth, Low Complexity Minutes (26971) 10 OT Goals Therapy Frequency (OT) 5 [...] Management Self-Care/Home Mgmt/ADL, Compensatory, Meal Prep Minutes (10834) 22 Treatment Detail/Skilled Intervention Pt is educated [...] PT - 04/09/2023 10:09 AM CDT 04/09/23 0925 Appointment Info Signing Clinician's Name / Credentials [...] Evaluation Time PT Eval, Low Complexity Minutes (25771) 10 Physical Therapy Goals PT Frequency Daily PT Predicted Duration/Target Date for Goal Attainment 04/12/23 PT Goals Transfers;Bed Mobility;Gait PT: Bed Mobility Supine to/from sit;Rolling;Modified independent PT: Transfers Supervision/stand-by assist;Sit to/from stand;Modified independent PT: Gait Supervision/stand-by assist;Greater than 200 feet;Rolling walker;Within precautions Therapeutic Procedure/Exercise Ther. Procedure: strength, endurance, ROM, flexibillity Minutes (04833) 10 Treatment Detail/Skilled Intervention Pt engaged in 10 reps LLE AP, QS, heel slide, SAQ for improved bld flow and ROM prior to OOBmobility tolerated well Symptoms Noted During/After Treatment fatigue;increased pain Therapeutic Activity Therapeutic Activities: dynamic activities to improve functional performance Minutes (29762) 10 Treatment Detail/Skilled Intervention Pt supine upon [...] BLE elevated Gait Training Gait Training Minutes (00084) 15 Symptoms Noted During/After Treatment (Gait Training) [...] from the original note were not included. [facility] Hospitalist Progress Note Jonathan Linn M.D., [...] partially visualized. JEROD YEAGER MD SYSTEM ID: [id number] XR Surgery RAAD L/T 5 Min Fluoro w Stills Narrative This exam was marked as non-reportable because it will not be read by a radiologist or a [facility] non-radiologist provider. XR Pelvis w Hip Port [...] alignment. Osteopenia. POLO GARCIA MD SYSTEM ID: [id number] COVID Status: COVID-19 PCR Results 04/10/2021 09:25 [...] Locke MD - 04/07/2023 3:10 PM CDT [facility] History and Physical - Hospitalist [...] Disposition Plan Deyanira Locke MD Hospitalist Service [facility] Securely message with Where's Up (more info) Text page via [facility] Paging/Directory Chief Complaint Left hip pain [...] SH OR CARPAL TUNNEL RELEASE RT/LT Bilateral STAFFING DIRECTOR SURGERY c section x 3 OPEN REDUCTION [...] night she is lives with her in [facility] Family History No significant family history, including [...] encounter Consult Notes * Caron Alba APRN COMPOSING MACHINE OPERATOR/TENDER - 04/11/2023 5:30 PM CDTAssociated Order(s): PAIN MANAGEMENT ADULT IP CONSULT Images from the original note were not included. [facility] Acute Pain Management Consultation Date of [...] Obesity, Smoker, Age>60, >2 opioid therapies, concomitant COMPOSING MACHINE OPERATOR/TENDER depressants, opioid naive status, or post surgical [...] she had rarely taken opiates. Per [place] PHARMACEUTICAL SERVICE REPRESENTATIVE review Oxycodone and Tramadol. The patient is [...] care everywhere. Last UDS - none [place] PHARMACEUTICAL SERVICE REPRESENTATIVE-pulled from system on 04/11/23. Last refill on [...] (Left, 01/25/2021); carpal tunnel release rt/lt (Bilateral); STAFFING DIRECTOR surgery; Total Knee Arthroplasty (Left, 04/2021); tubal [...] partially visualized. JEROD YEAGER MD SYSTEM ID: [id number] XR Pelvis w Hip Port Left 1 View Impression IMPRESSION: Status post left total hip arthroplasty revision with longstem femoral component. Periprosthetic fracture of the proximal femur with improved alignment. Expected postsurgical soft tissue edema, subcutaneous emphysema, and skin pepe. Normal joint alignment. Osteopenia. POLO GARCIA MD SYSTEM ID: [id number] CT Pelvis Soft Tissue w Contrast Impression [...] you for this consultation. Caron Alba APRN, COMPOSING MACHINE OPERATOR/TENDER, ACHPN, FAACVPR Acute Pain Team (SD/RH) 8 AM to 4:30 PM after 4:30 page housecalls nurse No weekend coverage [facility] Paging/Directory Pain Securely message with the [employer] Console (learn more here) * OLIVIA PARKICA [...] Communication Assessment Patient's communication style: spoken language (Greek or Bilingual) Hearing Difficulty or Deaf: no [...] see. Pt would like referrals sent to [facility], referrals sent. Pt stated her will provide transportation. Pt reports being independent with IADL/ADLs and uses a rolling walker. [place], BEN, [facility] Inpatient Care Coordination [facility] [phone] * Trini Torres PA-C - 04/07/2023 2:50 PM CDT [facility] Orthopedic Consultation Mora Rodriguez Adal Age: [...] She had increased pain and xrays at [facility] and was told xrays were negative. Unfortunately, patient was found to have a left hip periprosthetic fracture at her follow-up appointment yesterday at [facility] and was referred to the hospital for [...] SH OR CARPAL TUNNEL RELEASE RT/LT Bilateral STAFFING DIRECTOR SURGERY c section x 3 OPEN REDUCTION [...] Status --------- ------ CBC with platelets and d...[[id number]] Please view results for these tests on the individual orders. ABO/Rh type and screen Status: None () Narrative The following orders were created for panel order ABO/Rh type and screen. Procedure Abnormality Status --------- ------ Adult Type and Screen[[id number]] Please view results for these tests on [...] pop in her hip. She presented to [facility] where x-rays were read as negative. She has since followed up at [facility] where new x-rays were obtained and revealed a periprosthetic left hip fracture. She denies any falls or trauma. She locates pain to her left hip. She has a Brule 52 mm Trident TriTanium cluster hole acetabular [...] Smith RN - 04/07/2023 3:20 PM CDT [facility] ED Nurse Handoff Report ED Chief complaint: Hip Pain . ED Diagnosis: Final diagnoses: Periprosthetic hip fracture, initial encounter Allergies: Allergies Allergen Reactions Aspirin Anaphylaxis Code Status: Full Code Activity level - Baseline/Home: independent. Activity Level - Current: in bed. Lift room needed: No. Bariatric: No Regrinder Operator Needed: No Isolation: No. Infection: Not Applicable. [...] 5 mg (5 mg Oral $Given 04/07/23 1917) Drips infusing: No For the majority of [...] Patient Only Review of External Notes: Reviewed [facility] Ortho note Dr. Cj Issa [...] partially visualized. JEROD YEAGER MD SYSTEM ID: [id number] Report per radiology Laboratory: Labs Ordered and [...] NEG Antibody Screen Negative SPECIMEN EXPIRATION DATE [id number] ABO/RH TYPE AND SCREEN Emergency Department Course [...] care of Dr. Locke. Impression & Plan [facility] Diagnoses: None Medical Decision Making: This is [...] 2-3 Expected length of therapy undetermined. Warfarin CHARTER BOAT OPERATOR Regimen: 2.5 mg daily Anticoagulation Dose History [...] goal(s). See goals on Care Plan in [facility] electronic health record for goal details. [...] goal(s). See goals on Care Plan in [facility] electronic health record for goal details. [...] analgesics: Yes Does patient have an identified motor coach supervisor: Yes Has goal D/C date and time [...] analgesics: Yes Does patient have an identified motor coach supervisor: Yes Has goal D/C date and time [...] analgesics: Yes Does patient have an identified motor coach supervisor: Yes Has goal D/C date and time [...] Reason: IVC Does patient have an identified motor coach supervisor: Yes Has goal D/C date and time [...] Stevenson RN - 04/09/2023 4:00 PM CDT Where's Up Web Paged Dr. Linn: Tachy HRs 130-140s, [...] 10 mg. Does patient have an identified motor coach supervisor: Yes, was at bedside this afternoon. Has goal D/C date and time been discussed with patient: Yes, TCU when stable. Pt A&O x4, afebrile. BP elevated. 98% RA. Capno in place. CMS intact, denies numbness and tingling, abductor pillow in place. Denies nausea and vomiting. Will continue to monitor. * Pharmacy-Anticoagulation Service - Angel Barker [facility] - 04/08/2023 7:12 PM CDT Clinical Pharmacy - Warfarin Dosing Consult Pharmacy has been consulted to manage this patient???s warfarin therapy. Indication: DVT/PE Prophylaxis Therapy Goal: INR 2-3 Warfarin Prior to Admission: Yes Warfarin CHARTER BOAT OPERATOR Regimen: 2.5 mg daily Significant drug interactions: [...] CDT ORTHOPEDIC SURGERY OPERATIVE NOTE Mora Galeas [id number] 1960 April 08, 2023 PREOPERATIVE DIAGNOSIS: Left [...] the pre-existing implant. SURGEON: Fazal Ramirez MD LOG CHIPPER: Rohini Beal PA-C; A skilled healthcare administrative assistant was necessary for this procedure for assistance with patient positioning, prepping, draping, surgical visualization, wound closure, and application of the dressing. Vira Fernandes PA-C SPECIMENS: None COMPLICATIONS: None ESTIMATED BLOOD LOSS: 350cc IMPLANTS: Implant Name Type Inv. Item Serial No. [place] Operator Lot No. LRB No. Used Action IMP HEAD FEMORAL STRK BIOLOX DELTA CERAMIC 36MM +2.5MM - [id number] Total Joint Component/Insert IMP HEAD FEMORAL STRK BIOLOX DELTA CERAMIC 36MM +2.5MM [employer] inc [id number] Left 1 Explanted IMP STEM FEMORAL HIP STRK ACCOLADE II 132DEG SZ 5 7835-0206 - [id number] Total Joint Component/Insert IMP STEM FEMORAL HIP STRK ACCOLADE II 132DEG SZ 5 3101- 6638 [employer] inc [id number] Left 1 Explanted FiberTape Cerclage, 2mm, 48 ARTHREX [id number] Left 3 Implanted IMP STEM FEM RSTRTN MOD BOWED CONICAL [id number] - [id number] Total Joint Component/InsertIMP STEM FEM RSTRTN MOD BOWED CONICAL [id number] [employer] inc [id number] Left 1 Implanted IMP INSERT ACET STRK MDM COCR HIP 0DEG 42MM SZ E [id number] - [id number] Total Joint Component/Insert IMP INSERT ACET STRK MDM COCR HIP 0DEG 42MM SZ E [id number] [employer] inc [id number] Left 1 Implanted IMP STEM FEM MOD REV HIP PROX BODY/BOLT 19MM +10 6276--119 - [id number] Total Joint Component/Insert IMP STEM FEM MOD REV HIP PROX BODY/BOLT 19MM +10 6276--119 [employer] inc [id number] Left 1 Implanted INSERT ACTB 42MM 28MM E HIP X3 ADM STRL [facility] 7236-2-848 - [id number] Metallic Hardware/[place] INSERT ACTB 42MM 28MM E HIP X3 ADM STRL [facility] 7236-2-218 [employer] inc [id number] Left 1 Implanted IMP HEAD FEMORAL STRK BIOLOX DELTA CERAMIC 28MM +4MM - [id number] Total Joint Component/Insert IMP HEAD FEMORAL STRK BIOLOX DELTA CERAMIC 28MM +4MM [employer] inc [id number] Left 1 Implanted FiberTape Cerclage, 2mm, 48 [id number] ARTHREX Left 1 Implanted FiberTape Cerclage, 2mm, 48 ARTHREX [id number] Left 1 Implanted PRIOR IMPLANTS: She has a Zachary 52 mm Trident [...] pop in her hip. She presented to [facility] where x-rays were read as negative. She has since followed up at [facility] where new x-rays were obtained and revealed [...] be loose and easilyremoved with a vice topstitcher zigzag Revision hip arthroplasty We then proceeded with placement of a new stem. Prior to placement of the new stem, a Arthrex fibertape cerclage was placed just distal to the fracture along the femoral shaft to prevent any propagation of a femoral shaft fracture. The Yagantec voodoo modular implant system was utilized. The femoral shaft was reamed sequentially up to a size 19mm. Intraoperative radiographs were obtained to ensure good fit. A [id number] was selected and implanted into the femoral [...] clinic in [address] Ramirez's care consultant is Dede Sadler. Please contact her at [phone] to schedule [address] appointment[address]. Ramirez sees patient's at 2 clinic locations: [facility] Orthopedics - [facility] [address] [place] [address] [facility] Orthopedics - [place] [address] , [address], [place] [address] Please call the on-call phone number [phone] during evenings, nights and weekends for any urgent needs. Prescription refills must be done during business hours by calling [phone] Fazal Ramirez MD [facility] Orthopedics * Plan of Care [...] through pain Does patient have an identified motor coach supervisor: Yes Has goal D/C date and time [...] Yes Information Source(s): Patient, Hospital records, and [facility] in-person Pertinent Information: Pt recently started warfarin following surgery a couple of weeks ago - Rx states to take two 2.5 mg tabs daily (5 mg total), however pt has only been taking one 2.5 mg tab daily. Pt states has green colored tabs at home. Changes made to CHARTER BOAT OPERATOR medication list: Added: None Deleted: None Changed: Warfarin 5 mg daily -> 2.5 mg daily Senna-doc -> PRN Allergies reviewed with patient and updates made in EHR: yes Medication History Completed By: Trini Josue RPH 04/07/2023 6:44 PM Prior to Admission medications Medication Sig Last Dose Taking? Auth Provider Sales Solutions Associate End Date acetaminophen (TYLENOL) 325 MG tablet [...] Locke MD LAB - BLOOD ORDERABL ES [facility] [address] (1st floor, no room number) [place] [id number], [facility] [phone] * (ABNORMAL) Hemoglobin (04/12/2023 6:41 AM CDT) Hemoglobin 7.8(L) 11.7 - 15.7 g/dL 04/12/2023 6:49 AM CDT [facility] Blood STRUCTURE OF LEFT HAND / Unknown Venipuncture / Unknown 04/12/2023 6:41 AM CDT 04/12/2023 6:45 AM CDT Jonathan Linn MD LAB - BLOOD ORDERABL ES [facility] [address] (1st floor, no room number) [place] [address], [facility] [phone] * (ABNORMAL) INR (04/12/2023 6:41 AM CDT) INR 1.28(H) 0.85 - 1.15 04/12/2023 6:58 AM CDT [facility] Blood STRUCTURE OF LEFT HAND / Unknown Venipuncture / Unknown 04/12/2023 6:41 AM CDT 04/12/2023 6:45 AM CDT Rohini Beal PA-C LAB - BLOOD ORDERA BLES LABORATORY [facility] Lab [address] Lab (1st floor, no room number) [place] [phone], [facility] [phone] * (ABNORMAL) Hemoglobin (04/11/2023 5:58 PM CDT) Hemoglobin 7.6(L) 11.7 - 15.7 g/dL 04/11/2023 6:06 PM CDT [facility] Blood STRUCTURE OF RIGHT UPPER LIMB / Unknown Venipuncture / Unknown 04/11/2023 5:58 PM CDT 04/11/2023 6:01 PM CDT Jonathan Linn MD LAB - BLOOD ORDERABL ES Performing Organization Address [facility]/ZIP Co de Phone Number [facility] Lab [address] Lab (1st floor, no room number) [place] [phone], [facility] [phone] * (ABNORMAL) INR (04/11/2023 6:51 AM CDT) INR 1.29(H) 0.85 - 1.15 04/11/2023 7:20 AM CDT [facility] Blood STRUCTURE OF RIGHT UPPER LIMB / Unknown Venipuncture / Unknown 04/11/2023 6:51 AM CDT 04/11/2023 7:03 AM CDT Rohini Beal PA-C LAB - BLOOD ORDERA BLES [facility] Care Lab [address] Lab (1st floor, no room number) [place] [address], [facility] [phone] * Platelet count (04/11/2023 6:51 AM CDT) Platelet Count 383 150 - 450 10e3/uL 04/11/2023 7:06 AM CDT [facility] Blood STRUCTURE OF RIGHT UPPER LIMB / Unknown Venipuncture / Unknown 04/11/2023 6:51 AM CDT 04/11/2023 7:03 AM CDT Rohini Beal PA-C LAB - BLOOD ORDERA BLES LABORATORY [facility] Lab [address] Lab (1st floor, no room number) [place] [phone], [facility] [phone] * (ABNORMAL) Hemoglobin (04/11/2023 6:51 AM CDT) Hemoglobin 7.7(L) 11.7 - 15.7 g/dL 04/11/2023 7:06 AM CDT [facility] Blood STRUCTURE OF RIGHT UPPER LIMB / Unknown Venipuncture / Unknown 04/11/2023 6:51 AM CDT 04/11/2023 7:03 AM CDT Jonathan Linn MD LAB - BLOOD ORDERABL ES Performing Organization Address [facility]/ZIP Co de Phone Number [facility] Care Lab [address] Lab (1st floor, no room number) [place] [phone], [facility] [phone] * Transfuse red blood cells (unit) (04/10/2023 11:32 PM CDT) Isabel Hawthorne MD BLOOD TRANSFUSION OR DERABLES * Transfuse red blood cells (unit), 1 Units (04/10/2023 11:32 PM CDT) Isabel Hawthorne MD BLOOD TRANSFUSION OR DERABLES * Prepare red blood cells (unit) (04/10/2023 8:23 PM CDT) Blood Component Type Red Blood Cells [facility] BLOOD BANK Product Code [id number] RH BLOO D BANK Unit Status Transfused RH BLOO D BANK Unit Number [id number] RH B LOOD BANK CROSSMATCH Compatible RH BLOOD BANK CODING SYSTEM [id number] RH BLO OD BANK ISSUE DATE AND TIME [id number] RH BLOOD BANK UNIT ABO/RH A- RH BLOOD BANK UNIT TYPE ISBT 0600 RH BL OOD BANK 04/10/2023 8:23 PM CDT Isabel Hawthorne MD BLOOD BANK PRODUCT O RDERABLES Performing Organization Address City/[facility]/ZIP Co de Phone Number RH BLOOD BANK [address] [place] [address], [facility] * Adult Type and Screen (04/10/2023 8:04 PM CDT) ABO/RH(D) A NEG 04/10/2023 7:13 PM CDT RH BLOOD BANK Antibody Screen Negative Negative 04/10/2023 7:13 PM CDT RH BLOOD BANK SPECIMEN EXPIRATION DATE [id number] 04/10/2023 7:13 PM CDT RH BLOOD BANK Blood STRUCTURE OF RIGHT UPPER LIMB / Unknown Venipuncture / Unknown 04/10/2023 8:04 PM CDT 04/10/2023 8:06 PM CDT Drake Aburto MD LAB - BLOOD BANK RENITA T ORDER Performing Organization Address [facility] Co de Phone Number RH BLOOD BANK [address] [place] [address], [facility] * CT Pelvis Soft Tissue [...] CT PELVIS SOFT TISSUE W CONTRAST LOCATION: [facility] DATE: 04/10/2023 INDICATION: Hgb 9 [...] CT PELVIS SOFT TISSUE W CONTRAST LOCATION: [facility] DATE: 04/10/2023 INDICATION: Hgb 9 [...] Linn MD LAB - BLOOD ORDERABL ES [facility] [address] Lab (1st floor, no room number) [place] [address], [facility] [phone] * (ABNORMAL) Glucose (04/10/2023 7:07 AM CDT) Glucose 108(H) 70 - 99 mg/dL 04/10/2023 7:36 AM CDT RH LABORATORY Blood STRUCTURE OF RIGHT UPPER LIMB / Unknown Venipuncture / Unknown 04/10/2023 7:07 AM CDT 04/10/2023 7:12 AM CDT Jonathan Linn MD LAB - BLOOD ORDERABL ES [facility] Lab [address] Lab (1st floor, no room number) [place] [address], [place] [phone] * (ABNORMAL) INR (04/10/2023 7:07 AM CDT) INR 1.31(H) 0.85 - 1.15 04/10/2023 7:26 AM CDT RH LABORATORY Blood STRUCTURE OF RIGHT UPPER LIMB / Unknown Venipuncture / Unknown 04/10/2023 7:07 AM CDT 04/10/2023 7:12 AM CDT Rohini Beal PA-C LAB - BLOOD ORDERA BLES LABORATORY [facility] [address] Lab (1st floor, no room number) [place] [address], [place] [phone] * (ABNORMAL) Basic metabolic panel (04/10/2023 7:07 [...] MD LAB - BLOOD ORDERABL ES LABORATORY [facility] [address] Lab (1st floor, no room number) [place] [address], [place] [phone] * (ABNORMAL) CBC with platelets (04/10/2023 7:07 [...] MD LAB - BLOOD ORDERABL ES LABORATORY [facility] [address] Lab (1st floor, no room number) [place] [address], [facility] [phone] * (ABNORMAL) INR (04/09/2023 7:39 AM CDT) INR 1.18(H) 0.85 - 1.15 04/09/2023 8:20 AM CDT RH LABORATORY Blood STRUCTURE OF RIGHT HAND / Unknown Venipuncture / Unknown 04/09/2023 7:39 AM CDT 04/09/2023 7:47 AM CDT Rohini Beal PA-C LAB - BLOOD ORDERA BLES LABORATORY [facility] [address] Lab (1st floor, no room number) [place] [address], [facility] [phone] * (ABNORMAL) Basic metabolic panel (04/09/2023 7:39 [...] MD LAB - BLOOD ORDERABL ES LABORATORY [facility] [address] Lab (1st floor, no room number) [place] [address], [facility] [phone] * (ABNORMAL) CBC with platelets (04/09/2023 7:39 [...] LAB - BLOOD ORDERABL ES RH LABORATORY [facility] [address] Lab (1st floor, no room number) [place] [address], [facility] [phone] * (ABNORMAL) INR (04/08/2023 6:15 PM CDT) INR 1.26(H) 0.85 - 1.15 04/08/2023 6:41 PM CDT RH LABORATORY Blood STRUCTURE OF RIGHT HAND / Unknown Venipuncture / Unknown 04/08/2023 6:15 PM CDT 04/08/2023 6:28 PM CDT Rohini Beal PA-C LAB - BLOOD ORDERA BLES LABORATORY [facility] [address] Lab (1st floor, no room number) [place] [address], [facility] [phone] * XR Pelvis w Hip Port Left [...] alignment. Osteopenia. POLO GARCIA MD SYSTEM ID: [id number] Narrative 04/08/2023 4:18 PM CDT XR PELVIS [...] alignment. Osteopenia. POLO GARCIA MD SYSTEM ID: [id number] Rohini Beal PA-C IMG DIAGNOSTIC PARAM GING [...] - BLOOD ORDERA BLES Performing Organization Address [facility]/ZIP Co de Phone Number [facility] Lab [address] Lab (1st floor, no room number) [place] [address], [facility] [phone] * XR Surgery RAAD L/T 5 Min Fluoro w Stills (04/08/2023 2:18 PM CDT) Narrative [facility] - 04/08/2023 2:19 PM CDT This exam was marked as non-reportable because it will not be read by a radiologist or a [place] non-radiologist provider. Fazal Ramirez MD IMG DIAGNOSTIC PARAM GING ORDERABLES Performing Organization Address [facility] de Phone Number [facility] * (ABNORMAL) INR (04/08/2023 3:57 AM CDT) INR 1.39(H) 0.85 - 1.15 04/08/2023 4:28 AM CDT RH LABORATORY Blood STRUCTURE OF RIGHT UPPER LIMB / Unknown Venipuncture / Unknown 04/08/2023 3:57 AM CDT 04/08/2023 4:17 AM CDT Deyanira Locek MD LAB - BLOOD ORDERABL ES Performing Organization Address [facility] Co de Phone Number [facility] Lab [address] Lab (1st floor, no room number) [place] [address], [facility] [phone] * (ABNORMAL) CBC with platelets (04/08/2023 3:57 [...] LAB - BLOOD ORDERABL ES RH LABORATORY [facility] [address] [facility] Lab (1st floor, no room number) [place] [address], [facility] [phone] * (ABNORMAL) Basic metabolic panel (04/08/2023 3:57 [...] MD LAB - BLOOD ORDERABL ES LABORATORY [facility] [address] [facility] Lab (1st floor, no room number) [place] [address], [facility] [phone] * CT Hip Left w/o Contrast (04/07/2023 [...] partially visualized. JEROD YEAGER MD SYSTEM ID: ??[id number] Narrative 04/07/2023 4:[address] HIP [...] partially visualized. JEROD YEAGER MD SYSTEM ID: [id number] Trini AYON CT ORDERABLES * Adult Type and Screen (04/07/2023 2:54 PM CDT) ABO/RH(D) A NEG 04/07/2023 2:42 PM CDT RH BLOOD BANK Antibody Screen Negative Negative 04/07/2023 2:42 PM CDT RH BLOOD BANK SPECIMEN EXPIRATION DATE [id number] 04/07/2023 2:42 PM CDT RH BLOOD BANK Blood BLOOD SPECIMEN / Unknown Venipuncture / Unknown 04/07/2023 2:54 PM CDT 04/07/2023 3:02 PM CDT Rusty Schultz PA-C LAB - BLOOD B ANK TEST ORDER RH BLOOD BANK [address] [place] [address] * (ABNORMAL) CBC with platelets [...] LAB - BLOOD O RDERABLES RH LABORATORY [facility] [address] Lab (1st floor, no room number) [place] [address], [facility] [phone] * (ABNORMAL) Basic metabolic panel (BMP) (04/07/2023 2:54 PM CDT) [facility] Signature Sodium 135(L) 136 - 145 [...] LAB - BLOOD Luis M BAÑUELOS LABORATORY [facility] [address] Lab (1st floor, no room number) [place] [address], [facility] [phone] * Partial thromboplastin time (04/07/2023 2:54 PM CDT) aPTT 33 22 - 38 Seconds 04/07/2023 3:15 PM CDT RH LABORATORY Blood BLOOD SPECIMEN / Unknown Venipuncture / Unknown 04/07/2023 2:54 PM CDT 04/07/2023 3:02 PM CDT Rusty Schultz PA-C LAB - BLOOD O EDDA [facility] [address] Lab (1st floor, no room number) [place] [address], [facility] [phone] * (ABNORMAL) INR (04/07/2023 2:54 PM CDT) INR 1.40(H) 0.85 - 1.15 04/07/2023 3:14 PM CDT LABORATORY Blood BLOOD SPECIMEN / Unknown Venipuncture / Unknown 04/07/2023 2:54 PM CDT 04/07/2023 3:02 PM CDT Rusty Schultz PA-C LAB - BLOOD O RDERABLES [facility] [address] Lab (1st floor, no room number) [place] [address], [facility] [phone] documented in this encounter Visit Diagnoses Diagnosis [...] 2 MIN PRN, opioid reversal, Starting on [facility] 04/07/23 at 1944, Administer intravenous route [...] 2 MIN PRN, opioid reversal, Starting on [facility] 04/07/23 at 1944, Administer intramuscular if [...] analgesic side effects. Hold while on IV CHEMISTRY DEPARTMENT CHAIR or with regular IV opioid dosing., , [...] analgesic side effects. Hold while on IV CHEMISTRY DEPARTMENT CHAIR or with regular IV opioid dosing., , [...] Alonso Montoya, SRAVANI) 2047 ($Given - Provider: lEizabeth Deleon RN) lidocaine (LMX4) cream Topical, EVERY [...] 2 MIN PRN, opioid reversal, Starting on [facility] 04/07/23 at 1944, Administer intramuscular if [...] analgesic side effects. Hold while on IV CHEMISTRY DEPARTMENT CHAIR or with regular IV opioid dosing., , [...] analgesic side effects. Hold while on IV CHEMISTRY DEPARTMENT CHAIR or with regular IV opioid dosing., , [...] analgesic side effects. Hold while on IV CHEMISTRY DEPARTMENT CHAIR or with regular IV opioid dosing., , [...] analgesic side effects. Hold while on IV CHEMISTRY DEPARTMENT CHAIR or with regular IV opioid dosing., , [...] documented as of this encounter Care Teams Science Technicians Relationship Specialty Start Date End Date Case [address] [place] [address] PCP - General Family Medicine 01/25/21 documented as of this encounter
--- OUTSIDE RECORDS SUMMARY | 2023-10-26 13:46 | XMS_ITS | Encounter Summary ---
Author Name Unknown Organization [facility] Address [address] [place] [address]. [place] [address] Care Team Providers Care Gluing Crew Leader Name Role Phone Sima Case Sierra Primary Care Provider [phone] Reason for Visit * Auth/Cert (Routine) Specialty Diagnoses / Procedures Referred By Konstantin katz Referred To Contact Surgery Diagnoses Primary osteoarthritis of left hip Primary osteoarthritis of left hip [M16.12] Procedures [place] TOTAL HIP ARTHROPLASTY left total hip arthroplasty [facility] [address] [place] [address] Referral ID Status Reason Start Date Expiration Date Visits Re quested Visits Authorized [id number] 1 1 Encounter Details Date Type Department Care Team (Latest Contact Info) Description 03/25/2023 5:17 AM CDT - 03/26/2023 12:01 PM CDT Hospital Encounter M [facility] [address] [place] [phone] Cj Chen MD [facility] [address] [id number] Status post total hip replacement, left (Primary [...] results for input(s): POTASSIUM in the last 69668 hours. Recent Labs Lab Test 03/26/23 0936 HGB 10.2* Recent Labs Lab Test 03/26/23 0936 03/25/23 1101 INR 1.08 1.02 No results for input(s): PLT in the last 90240 hours. A/P 1. S/p left MICHELLE (PL [...] Evaluation Time OT Eval, Low Complexity Minutes (34979) 10 Therapy Certification Medical Diagnosis L MICHELLE [...] Management Self-Care/Home Mgmt/ADL, Compensatory, Meal Prep Minutes (20301) 25 Symptoms Noted During/After Treatment (Meal Preparation/Planning Training) fatigue Treatment Detail/Skilled Intervention Educated patient on AE for dressing. Patient dons lower body clothing with MOD I with exception of shoes. Patient too tired to try. Issued elastic laces and patient verbalizes technique to don/doff. Therapeutic Activities Therapeutic Activity Minutes (90154) 15 Symptoms noted during/after treatment fatigue Treatment [...] of timed and untimed services) 50 M [facility] Services OUTPATIENT OCCUPATIONAL THERAPY EVALUATION PLAN OF TREATMENT FOR OUTPATIENT REHABILITATION (COMPLETE FOR INITIAL CLAIMS ONLY) Patient's Last Name, First Name, M.I. Date of : 1960 Mora Avalos Provider's Name [facility] Onset Date: 03/25/23 Start of Care Date: 03/26/23 Type: ___PT _X_OT ___SLP Medical Diagnosis: L MICHELLE OT Diagnosis: Decreased ADL Visits from SOC: 1 _ Plan of Treatment/Functional Goals Planned Interventions: ADL retraining Goals: See Occupational Therapy Goals on Care Plan in [facility] electronic health record. Therapy Frequency: One time eval and treatment Predicted Duration of Therapy Intervention: 03/26/23 _ I CERTIFY THE NEED FOR THESE SERVICES FURNISHED UNDER THIS PLAN OF TREATMENT AND WHILE UNDER MY CARE . Physician Signature Date X Certification date from: 03/26/23, Certification date to: 03/26/23 Referring Physician: Cj Chen Initial Assessment See Occupational Therapy evaluation dated 03/26/23 in [facility] electronic health record. Associated attestation - Cj Chen MD - 03/29/2023 10:14 AM CDT Physician Attestation I agree with the information in this note. Cj Chen MD, * Karma Colón RN - 03/26/2023 6:14 AM CDT Date/Time 03/25-03/26 5813-3136 AM Patient vital signs are at baseline: [...] Ruben Avilez - 03/25/2023 6:12 AM CDT INSURANCE SALES SPECIALIST medications completed by Medication Scribe day of [...] Dose Taking? Auth Provider Shelter End Date etanercept (ENBREL) 50 MG/ML injection [...] history completed by: Alfonso Avilez CPhT Medication [facility] documented in this encounter H&P [...] Yes Does patient have an identified assistant tennis coach: Yes Has goal D/C date and [...] PT - 03/25/2023 4:06 PM CDT 03/25/23 9623 Appointment Info Signing Clinician's Name / Credentials [...] Evaluation Time PT Eval, Low Complexity Minutes (90585) 10 Plan of Care Review Plan of [...] of timed and untimed services) 10 M [facility] OUTPATIENT PHYSICAL THERAPY EVALUATION PLAN OF TREATMENT FOR OUTPATIENT REHABILITATION (COMPLETE FOR INITIAL CLAIMS ONLY) Patient's Last Name, First Name, M.I. Date of : 1960 Mora Avalos Provider's Name [facility] Onset Date: 03/25/23 Start of [...] review and certification of the therapy plan). ONALIZED LIVING ASSISTANT Associated attestation - Cj Chen MD - 08/12/2023 8:23 AM PERSONALIZED LIVING ASSISTANT Agree with note * Pharmacy-Anticoagulation Service - Rohini Chua, [facility] - 03/25/2023 11:23 AM CDT [...] Chen MD - 03/25/2023 11:23 AM CDT [facility] Brief Operative Note Pre-operative diagnosis: Primary [...] Implant Name Type Inv. Item Serial No. Cloth Grader Lot No. LRB No. Used Action 6.5 mm Cannulated Screws, 16mm thread length 80mm SYNTHES 24 JAN 2021 Left 3 Explanted Titanium Washer, 13.0 mm SYNTHES 24 JAN 2021 8002 Left 3 Explanted TRIDENT II TRITANIUM CLUSTERHOLE 52E - [id number] Total Joint Component/Insert TRIDENT II TRITANIUMCLUSTERHOLE 52E [employer] [id number] Left 1 Implanted INSERT JONATAN 36MM 0DEG X3 723-00-36E - [id number] Total Joint Component/Insert INSERT JONATAN 36MM 0DEG X3 723-00-36E [employer] [id number] Left 1 Implanted IMP STEM FEMORAL HIP STRK ACCOLADE II 132DEG SZ 5 0890-9952 - [id number] Total Joint Component/Insert IMP STEM FEMORAL HIP STRK ACCOLADE II 132DEG SZ 5 0562- 1970 [employer] [id number] Left 1 Implanted IMP HEAD FEMORAL STRK BIOLOX DELTA CERAMIC 36MM +2.5MM - [id number] Total Joint Component/Insert IMP HEAD FEMORAL STRK BIOLOX DELTA CERAMIC 36MM +2.5MM [employer] [id number] Left 1 Implanted * Op Note - Cj Chen MD - 03/25/2023 9:42 AM CDT Procedure Date: 03/25/2023 PREOPERATIVE DIAGNOSIS: Avascular necrosis, status post pinning of left femoral neck fracture. POSTOPERATIVE DIAGNOSIS: Avascular necrosis, status post pinning of left femoral neck fracture. PROCEDURES: 1. Left hip removal of hardware. 2. Left total hip arthroplasty. SURGEON: Cj Chen MD. GAS TECHNICIAN: Vira Fernandes PA-C. ANESTHESIA: Spinal with sedation. [...] along the calcar. Trial reduction restored appropriate religious of leg length, offset and stability. The size 5 Accolade II 132-degree neck angle hip stem wasopened and impacted, matching the patient's [place] femoral version. Multiple trial reductions were p [...] yahaira Name: MORA AVALOS MRN: [id number] Account: [id number] : 1960 Procedure Date: 03/25/2023 Document: [id number] documented in this encounter Plan of Treatment [...] MD LAB - BLOOD ORDERABL ES LABORATORY [facility] Lab [address] 1st floor, [address] [place] [address], [facility] [phone] * (ABNORMAL) Hemoglobin (03/26/2023 9:36 AM CDT) Hemoglobin 10.2(L) 11.7 - 15.7 g/dL 03/26/2023 9:52 AM CDT LABORATORY Blood STRUCTURE OF LEFT UPPER LIMB / Unknown Venipuncture / Unknown 03/26/2023 9:36 AM CDT 03/26/2023 9:49 AM CDT Cj Chen MD LAB - BLOOD ORDERABL ES Performing Organization Address City/[facility]/ZIP Co de Phone Number LABORATORY [facility] Lab [address] 1st floor, [address] [place] [address], [place] [phone] * (ABNORMAL) Glucose (03/26/2023 9:36 AM CDT) Glucose 123(H) 70 - 99 mg/dL 03/26/2023 10:23 AM CDT LABORATORY Patient Fasting > 8hrs? No 03/26/2023 10:23 AM CDT LABORATORY Blood STRUCTURE OF LEFT UPPER LIMB / Unknown Venipuncture / Unknown 03/26/2023 9:36 AM CDT 03/26/2023 9:49 AM CDT Cj Chen MD LAB - BLOOD ORDERABL ES Performing Organization Address City/[facility]/ZIP Co de Phone Number LABORATORY [facility] Lab [address] 1st floor, [address] [place] [address], [place] [phone] * INR (03/25/2023 11:01 AM CDT) INR 1.02 0.85 - 1.15 03/25/2023 11:17 AM CDT LABORATORY Blood STRUCTURE OF LEFT UPPER LIMB / Unknown Venipuncture / Unknown 03/25/2023 11:01 AM CDT 03/25/2023 11:07 AM CDT Cj Chen MD LAB - BLOOD ORDERABL ES LABORATORY [facility] Lab [address] 1st floor, [address] [place] [address], [place] [phone] * XR Pelvis w Hip Port Left 1 View (03/25/2023 9:54 AM CDT) Anatomical Region Laterality Modality Abdomen/Pelvis Left Digital Radiogra phy Impressions 03/25/2023 10:19 AM CDT IMPRESSION: Removal of hardware and left total hip arthroplasty. Negative for postoperative purposes. HUMBLE SANTIAGO DO SYSTEM ID: [id number] Narrative 03/25/2023 10:19 AM CDT EXAM: XR [...] postoperative purposes. HUMBLE SANTIAGO DO SYSTEM ID: [id number] Cj Chen MD IMG DIAGNOSTIC IMAGI NG [...] analgesic side effects. Hold while on IV STAMPING DIE MAKER BENCH or with regular IV opioid dosing. $Given [...] analgesic side effects. Hold while on IV STAMPING DIE MAKER BENCH or with regular IV opioid dosing. $Given [...] mL (ORTHO SANDRO CUSTOM DOSE) (COMPLETED) INTRA-ARTICULAR, GRANITE CUTTER APPRENTICE TO O.R., Starting on Tue03/25/23 at 0724, [...] analgesic side effects. Hold while on IV STAMPING DIE MAKER BENCH or with regular IV opioid dosing. 1325 [...] analgesic side effects. Hold while on IV STAMPING DIE MAKER BENCH or with regular IV opioid dosing. 1325 [...] analgesic side effects. Hold while on IV STAMPING DIE MAKER BENCH or with regular IV opioid dosing. Or oxyCODONE (ROXICODONE) tablet 10 mgJump to med 10 mg, Oral, EVERY 4 HOURS PRN, severe pain, Starting on Tue03/25/23 at 1043, Hold oral PRN dose for analgesic side effects. Notify provider to assess for uncontrolled pain or analgesic side effects. Hold while on IV STAMPING DIE MAKER BENCH or with regular IV opioid dosing. Group [...] documented as of this encounter Care Teams Gluing Crew Leader Relationship Specialty Start Date End Date [address] [place] [address] PCP - General Family Medicine 01/25/21 documented as of this encounter
--- OUTSIDE RECORDS SUMMARY | 2023-10-26 13:46 | XMS_ITS | Encounter Summary ---
Author Name Unknown Organization [facility] Address [address] [place] [address] Care Team Providers Care Platform Builder Name Role Phone Case Gao Sierra Primary Care Provider [phone] Reason for Visit * Auth/Cert (Routine) Specialty Diagnoses / Procedures Referred By Konstantin katz Referred To Contact Surgery Diagnoses Primary osteoarthritis of left hip Primary osteoarthritis of left hip [M16.12] Procedures CO TOTAL HIP ARTHROPLASTY left total hip arthroplasty [facility] [address] [place] [address] Referral ID Status Reason Start Date Expiration Date Visits Re quested Visits Authorized [id number] 1 1 Encounter Details Date Type Department Care Team (Late st Contact Info) Description 03/25/2023 7:30 AM CDT - 03/25/2023 9:05 AM CDT Surgery [facility] Peri[facility] [address] [place] [address] Cj Chen MD [facility] [address] [facility] [address] [place] [address] left total hip arthroplasty with removal of [...] Primary Orthopedics 1 Vira Fernandes PA-C Assisting Manager Diversity Authorizat ion 1 Case Notes DANTE REVIEWED [...] results for input(s): POTASSIUM in the last 21438 hours. Recent Labs Lab Test 03/26/23 0936 HGB 10.2* Recent Labs Lab Test 03/26/23 0936 03/25/23 1101 INR 1.08 1.02 No results for input(s): PLT in the last 37101 hours. A/P 1. S/p left MICHELLE (PL [...] Evaluation Time OT Eval, Low Complexity Minutes (69264) 10 Therapy Certification Medical Diagnosis L MICHELLE [...] Management Self-Care/Home Mgmt/ADL, Compensatory, Meal Prep Minutes (76177) 25 Symptoms Noted During/After Treatment (Meal Preparation/Planning Training) fatigue Treatment Detail/Skilled Intervention Educated patient on AE for dressing. Patient dons lower body clothing with MOD I with exception of shoes. Patient too tired to try. Issued elastic laces and patient verbalizes technique to don/doff. Therapeutic Activities Therapeutic Activity Minutes (65765) 15 Symptoms noted during/after treatment fatigue Treatment [...] of timed and untimed services) 50 M [facility] OUTPATIENT OCCUPATIONAL THERAPY EVALUATION PLAN OF TREATMENT FOR OUTPATIENT REHABILITATION (COMPLETE FOR INITIAL CLAIMS ONLY) Patient's Last Name, First Name, M.I. Date of : 1960 Mora Avalos Provider's Name [facility] Onset Date: 03/25/23 Start of Care Date: 03/26/23 Type: ___PT _X_OT ___SLP Medical Diagnosis: L MICHELLE OT Diagnosis: Decreased ADL Visits from SOC: 1 _ Plan of Treatment/Functional Goals Planned Interventions: ADL retraining Goals: See Occupational Therapy Goals on Care Plan in [facility] electronic health record. Therapy Frequency: One time eval and treatment Predicted Duration of Therapy Intervention: 03/26/23 _ I CERTIFY THE NEED FOR THESE SERVICES FURNISHED UNDER THIS PLAN OF TREATMENT AND WHILE UNDER MY CARE . Physician Signature Date X Certification date from: 03/26/23, Certification date to: 03/26/23 Referring Physician: Cj Chen Initial Assessment See Occupational Therapy evaluation dated 03/26/23 in [facility] electronic health record. Associated attestation - Cj Chen MD - 03/29/2023 10:14 AM CDT Physician Attestation I agree with the information in this note. 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 Date of : 1960 Mora Avalos Provider's Name [facility] Onset Date: 03/25/23 Start of Care [...] review and certification of the therapy plan). 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 Brief Operative Note Pre-operative diagnosis: Primary [...] Implant Name Type Inv. Item Serial No. Dress Marker Lot No. LRB No. Used Action 6.5 mm Cannulated Screws, 16mm thread length 80mm [employer] 24 JAN 2021 Left 3 Explanted Titanium Washer, 13.0 mm SYNTHES 24 JAN 2021 [id number] Left 3 Explanted TRIDENT II TRITANIUM CLUSTERHOLE 52E - [id number] Total Joint Component/Insert TRIDENT II TRITANIUMCLUSTERHOLE 52E [employer] [id number] Left 1 Implanted INSERT JONATAN 36MM 0DEG X3 723-00-36E - [id number] Total Joint Component/Insert INSERT JONATAN 36MM 0DEG X3 723-00-36E [employer]W [employer] [id number] Left 1 Implanted IMP STEM FEMORAL HIP STRK ACCOLADE II 132DEG SZ 5 7255-4033 - [id number] Total Joint Component/Insert IMP STEM FEMORAL HIP STRK ACCOLADE II 132DEG SZ 5 1671- 8643 MATTHEW [employer] [id number] Left 1 Implanted IMP HEAD FEMORAL STRK BIOLOX DELTA CERAMIC 36MM +2.5MM - [id number] Total Joint Component/Insert IMP HEAD FEMORAL STRK BIOLOX DELTA CERAMIC 36MM +2.5MM MATTHEW [employer] [id number] Left 1 Implanted * Op Note - Cj Chen MD - 03/25/2023 9:42 AM CDT Procedure Date: 03/25/2023 PREOPERATIVE DIAGNOSIS: Avascular necrosis, status post pinning of left femoral neck fracture. POSTOPERATIVE DIAGNOSIS: Avascular necrosis, status post pinning of left femoral neck fracture. PROCEDURES: 1. Left hip removal of hardware. 2. Left total hip arthroplasty. SURGEON: Cj Chen MD. GEOGRAPHIC INFORMATION SYSTEMS DIRECTOR: Vira Fernandes PA-C. ANESTHESIA: Spinal with sedation. [...] along the calcar. Trial reduction restored appropriate episcopalian of leg length, offset and stability. The size 5 Accolade II 132-degree neck angle hip stem wasopened and impacted, matching the patient's [place] femoral version. Multiple trial reductions were p [...] Chen MD MT: dc Name: MORA AVALOS: [id number] Account: [id number] : 1960 Procedure Date: 03/25/2023 Document: [id number] documented in this encounter Plan of Treatment [...] LAB - BLOOD ORDERABL ES LABORATORY [facility] [address] floor, [address] [place] [address], [facility] [phone] * (ABNORMAL) Hemoglobin (03/26/2023 9:36 AM CDT) Hemoglobin 10.2(L) 11.7 - 15.7 g/dL 03/26/2023 9:52 AM CDT LABORATORY Blood STRUCTURE OF LEFT UPPER LIMB / Unknown Venipuncture / Unknown 03/26/2023 9:36 AM CDT 03/26/2023 9:49 AM CDT Cj Chen MD LAB - BLOOD ORDERABL ES LABORATORY [facility] [address], [address] [place] [address], [facility] [phone] * (ABNORMAL) Glucose (03/26/2023 9:36 AM CDT) Glucose 123(H) 70 - 99 mg/dL 03/26/2023 10:23 AM CDT LABORATORY Patient Fasting > 8hrs? No 03/26/2023 10:23 AM CDT LABORATORY Blood STRUCTURE OF LEFT UPPER LIMB / Unknown Venipuncture / Unknown 03/26/2023 9:36 AM CDT 03/26/2023 9:49 AM CDT Cj Chen MD LAB - BLOOD ORDERABL ES LABORATORY [facility] [address], [address] [place] [address], [facility] [phone] * INR (03/25/2023 11:01 AM CDT) INR 1.02 0.85 - 1.15 03/25/2023 11:17 AM CDT LABORATORY Blood STRUCTURE OF LEFT UPPER LIMB / Unknown Venipuncture / Unknown 03/25/2023 11:01 AM CDT 03/25/2023 11:07 AM CDT Cj Chen MD LAB - BLOOD ORDERABL ES LABORATORY [facility] [address], [address] [place] [address], [facility] [phone] * XR Pelvis w Hip Port Left 1 View (03/25/2023 9:54 AM CDT) Anatomical Region Laterality Modality Abdomen/Pelvis Left Digital Radiogra phy Impressions 03/25/2023 10:19 AM CDT IMPRESSION: Removal of hardware and left total hip arthroplasty. Negative for postoperative purposes. HUMBLE SANTIAGO DO SYSTEM ID: [id number] Narrative 03/25/2023 10:19 AM CDT EXAM: XR [...] postoperative purposes. HUMBLE SANTIAGO DO SYSTEM ID: [id number] Cj Chen MD IMG DIAGNOSTIC IMAGI NG [...] analgesic side effects. Hold while on IV RESOURCE SPECIALIST or with regular IV opioid dosing. $Given [...] analgesic side effects. Hold while on IV RESOURCE SPECIALIST or with regular IV opioid dosing. $Given [...] 100 mL (ORTHO SANDRO CUSTOM DOSE) INTRA-ARTICULAR, GENERAL SURGERY PHYSICIAN ASSISTANT TO O.R., Starting on Tue03/25/23 at 0724, [...] Karma Colón RN)1122 (Not Given - Provider: pAril Alberts RN - Reason: Patient/family refused)1130 ($Given [...] mL (ORTHO SANDRO CUSTOM DOSE) (COMPLETED) INTRA-ARTICULAR, GENERAL SURGERY PHYSICIAN ASSISTANT TO O.R., Starting on Tue03/25/23 at 0724, [...] analgesic side effects. Hold while on IV RESOURCE SPECIALIST or with regular IV opioid dosing. 1325 [...] analgesic side effects. Hold while on IV RESOURCE SPECIALIST or with regular IV opioid dosing. 1325 [...] analgesic side effects. Hold while on IV RESOURCE SPECIALIST or with regular IV opioid dosing. Or oxyCODONE (ROXICODONE) tablet 10 mgJump to med 10 mg, Oral, EVERY 4 HOURS PRN, severe pain, Starting on Tue03/25/23 at 1043, Hold oral PRN dose for analgesic side effects. Notify provider to assess for uncontrolled pain or analgesic side effects. Hold while on IV RESOURCE SPECIALIST or with regular IV opioid dosing. Group [...] documented as of this encounter Care Teams Platform Builder Relationship Specialty Start Date End Date Case Gao [address] [place] [address] PCP - General Family Medicine 01/25/21 documented as of this encounter
--- OUTSIDE RECORDS SUMMARY | 2023-10-26 13:46 | XMS_ITS | Encounter Summary ---
Author Name Unknown Organization [facility] Address [address] [place] [address] Care Team Providers Care Data Security Analyst Name Role Phone Case Gao Primary Care Provider [phone] Encounter Details Date Type Department Care Team [...] documented as of this encounter Care Teams Data Security Analyst Relationship Specialty Start Date End Date Case Gao [address] [place] [address] PCP - General Family Medicine 01/25/21 documented as of this encounter
--- OUTSIDE RECORDS SUMMARY | 2023-10-26 13:46 | XMS_ITS | Encounter Summary ---
Author Name Unknown Organization [facility] Address [address] [place] [address] Care Team Providers Care Hardware Installer Name Role Phone Case Gao Primary Care Provider [phone] Reason for Visit * Reason Comments Hip Pain * Auth/Cert (Routine) Specialty Diagnoses / Procedures Referred By Konstantin t Referred To Contact Surgery Diagnoses Periprosthetic hip fracture, initial encounter Periprosthetic hip fracture, initial encounter Rh Preop/Postop [address] [place] [address] Referral ID Status Reason Start Date Expiration Date Visits Re quested Visits Authorized [id number] 1 1 Encounter Details Date Type Department Care Team (Late st Contact Info) Description 04/08/2023 9:50 AM CDT - 04/08/2023 2:15 PM CDT Surgery [facility] PeriOp Services [address] [place] [address] Fazal Ramirez MD [address] [address] LEFT TOTAL HIP ARTHROPLASTY REVISION AND OPEN [...] Primary Orthopedics 1 Vira Fernandes PA-C Assisting Fiberglass Fabricator Shawna barrientos 1 Rohini Beal PA-C Assisting Fiberglass Fabricator Authorgina comer 1 documented in this encounter [...] 04/12/2023 11:32 AM CDT Physician Discharge Summary [facility] Hospitalist Discharge Summary-[facility] Name: Mora Galeas Date of : 1960 [...] Location: OR CARPAL TUNNEL RELEASE RT/LT Bilateral SURVEYOR HELPER SURGERY c section x 3 OPEN REDUCTION [...] DOSE WARFARIN PAIN MANAGEMENT ADULT IP CONSULT [facility] IP CONSULT PHYSICAL THERAPY ADULT [...] your medicines These medications were sent to [place], [place] - [address] [facility] [address] [facility] [address] ferrous sulfate 325 (65 Fe) MG EC [...] return or gets worse. Follow up with store sales consultant as instructed with ortho Other [...] partially visualized. JEROD YEAGER MD SYSTEM ID: [id number] XR Surgery RAAD L/T 5 Min Fluoro w Stills Narrative This exam was marked as non-reportable because it will not be read by a radiologist or a [facility] non-radiologist provider. XR Pelvis w Hip Port Left 1 View Narrative XR PELVIS AND HIP PORTABLE LEFT 1 VIEW 04/08/2023 4:13 PM HISTORY: Status post Hip surgery COMPARISON: 03/25/2023 Impression IMPRESSION: Status post left total hip arthroplasty revision with longstem femoral component. Periprosthetic fracture of the proximal femur with improved alignment. Expected postsurgical soft tissue edema, subcutaneous emphysema, and skin peep. Normal joint alignment. Osteopenia. POLO GARCIA MD SYSTEM ID: [id number] CT Pelvis Soft Tissue w Contrast Narrative EXAM: CT PELVIS SOFT TISSUE W CONTRAST LOCATION: [facility] DATE: 04/10/2023 INDICATION: Hgb 9 [...] Ramirez's clinic in 2 week([address] Ramirez's palliative care nurse practitioner is Dede Sadler. Please contact her at [phone] to schedule an appointment. Dr. Ramirez sees patient's at 2 clinic locations: [facility] [address] [place] [address] [facility] [place] [address] , [address], [place] [address] Please call the on-call phone number [phone] during evenings, nights and weekends for any [...] confirm recommendations regarding resuming her RA meds. ([phone]) 2. Disposition Anticipate d/c to home. Ortho [...] CM informed patient she was accepted at [facility], she stated she no longer wanted to go to TCU and would prefer to go home with outpatient PT. She would like to go to [facility] for PT on [facility] in [place]. She stated her can transport her and she is eager to discharge today. CM called and informed [facility] patient declined TCU placement. Hospitalist, charge nurse, and bedside nurse notified. Nesha Ross RN, BSN Inpatient Care Coordination [facility] [phone] * Trini Torres PA-C - 04/11/2023 11:12 [...] partially visualized. JEROD YEAGER MD SYSTEM ID: [id number] XR Surgery RAAD L/T 5 Min Fluoro w Stills Narrative This exam was marked as non-reportable because it will not be read by a radiologist or a [place] non-radiologist provider. XR Pelvis w Hip Port [...] alignment. Osteopenia. POLO GARCIA MD SYSTEM ID: [id number] COVID Status: COVID-19 PCR Results 04/10/2021 09:25 [...] partially visualized. JEROD YEAGER MD SYSTEM ID: [id number] XR Surgery RAAD L/T 5 Min Fluoro w Stills Narrative This exam was marked as non-reportable because it will not be read by a radiologist or a [place] non-radiologist provider. XR Pelvis w Hip Port [...] alignment. Osteopenia. POLO GARCIA MD SYSTEM ID: [id number] COVID Status: COVID-19 PCR Results 04/10/2021 09:25 [...] with her , Dell, who is a optometric assistant. Meaning, Beliefs, and Spirituality - Pt reports that her vicki is very important for her. She identifies as [facility]. She experiences God's love and justina in her life, and this is a major support for her. Mora prioritizes reading scripture and feels moved by sermons that get to the root of the Gospel message. She welcomed prayer with me. Plan of Care - I and other chaplains remain available for further support. I informed pt on how to request a sales team manager should further support be needed. Karoline Martinez Technical Editor Corporate Tax Preparer [facility] routine referrals *[phone] [facility] available 28/03 for emergent requests/referrals, either by paging the on-call sales team manager or by entering an HOWIE/STAT consult in [facility] (this will also page the on-call sales team manager). * Vira Fernandes PA-C - 04/10/2023 10:07 AM CDT Orthopedic Surgery [facility] Michael Galeas 04/10/2023 Admit Date: 04/07/2023 POD: [...] partially visualized. JEROD YEAGER MD SYSTEM ID: [id number] XR Surgery RAAD L/T 5 Min Fluoro w Stills Narrative This exam was marked as non-reportable because it will not be read by a radiologist or a [place] non-radiologist provider. XR Pelvis w Hip Port [...] alignment. Osteopenia. POLO GARCIA MD SYSTEM ID: [id number] COVID Status: COVID-19 PCR Results 04/10/2021 09:25 [...] flowsheet Bed Mobility Bed Mobility supine-sit;sit-supine Supine-Sit [place] (Bed Mobility) minimum assist (75% patient effort) Sit-Supine [place] (Bed Mobility) minimum assist (75% patient effort) [...] Evaluation Time OT Eval, Low Complexity Minutes (09604) 10 OT Goals Therapy Frequency (OT) 5 [...] Management Self-Care/Home Mgmt/ADL, Compensatory, Meal Prep Minutes (82716) 22 Treatment Detail/Skilled Intervention Pt is educated [...] Evaluation Time PT Eval, Low Complexity Minutes (66770) 10 Physical Therapy Goals PT Frequency Daily PT Predicted Duration/Target Date for Goal Attainment 04/12/23 PT Goals Transfers;Bed Mobility;Gait PT: Bed Mobility Supine to/from sit;Rolling;Modified independent PT: Transfers Supervision/stand-by assist;Sit to/from stand;Modified independent PT: Gait Supervision/stand-by assist;Greater than 200 feet;Rolling walker;Within precautions Therapeutic Procedure/Exercise Ther. Procedure: strength, endurance, ROM, flexibillity Minutes (82397) 10 Treatment Detail/Skilled Intervention Pt engaged in 10 reps LLE AP, QS, heel slide, SAQ for improved bld flow and ROM prior to OOBmobility tolerated well Symptoms Noted During/After Treatment fatigue;increased pain Therapeutic Activity Therapeutic Activities: dynamic activities to improve functional performance Minutes (01965) 10 Treatment Detail/Skilled Intervention Pt supine upon [...] BLE elevated Gait Training Gait Training Minutes (72538) 15 Symptoms Noted During/After Treatment (Gait Training) [...] partially visualized. JEROD YEAGER MD SYSTEM ID: [id number] XR Surgery RAAD L/T 5 Min Fluoro w Stills Narrative This exam was marked as non-reportable because it will not be read by a radiologist or a [facility] [place] non-radiologist provider. XR Pelvis w Hip Port [...] alignment. Osteopenia. POLO GARCIA MD SYSTEM ID: [id number] COVID Status: COVID-19 PCR Results 04/10/2021 09:25 [...] Locke MD - 04/07/2023 3:10 PM CDT [facility] History and Physical - Hospitalist Service [...] Disposition Plan Deyanira Locke MD Hospitalist Service [facility] Securely message with Opiatalk (more info) Text page via [facility] Paging/Directory Chief Complaint Left hip pain in [...] SH OR CARPAL TUNNEL RELEASE RT/LT Bilateral SURVEYOR HELPER SURGERY c section x 3 OPEN REDUCTION [...] night she is lives with her in [place] [employer] Family History No significant family history, including [...] encounter Consult Notes * Caron Alba APRN PARTS COUNTER REPRESENTATIVE - 04/11/2023 5:30 PM CDTAssociated Order(s): PAIN MANAGEMENT ADULT IP CONSULT Images from the original note were not included. [facility] Acute Pain Management Consultation Date of [...] Obesity, Smoker, Age>60, >2 opioid therapies, concomitant PARTS COUNTER REPRESENTATIVE depressants, opioid naive status, or post surgical [...] she had rarely taken opiates. Per [place] GRIEF COUNSELOR review Oxycodone and Tramadol. The patient is [...] care everywhere. Last UDS - none [place] GRIEF COUNSELOR-pulled from system on 04/11/23. Last refill on [...] (Left, 01/25/2021); carpal tunnel release rt/lt (Bilateral); SURVEYOR HELPER surgery; Total Knee Arthroplasty (Left, 04/2021); tubal [...] partially visualized. JEROD YEAGER MD SYSTEM ID: [id number] XR Pelvis w Hip Port Left 1 View Impression IMPRESSION: Status post left total hip arthroplasty revision with longstem femoral component. Periprosthetic fracture of the proximal femur with improved alignment. Expected postsurgical soft tissue edema, subcutaneous emphysema, and skin pepe. Normal joint alignment. Osteopenia. POLO GARCIA MD SYSTEM ID: [id number] CT Pelvis Soft Tissue w Contrast Impression [...] AM to 4:30 PM after 4:30 page house detective No weekend coverage [facility] Paging/Directory Pain Securely message with the SenSage Console (learn more here) * [place] [...] Communication Assessment Patient's communication style: spoken language (South Sudanese or Bilingual) Hearing Difficulty or Deaf: no [...] see. Pt would like referrals sent to [facility], referrals sent. Pt stated her will provide transportation. Pt reports being independent with IADL/ADLs and uses a rolling walker. BEN Howard, [facility] Inpatient Care Coordination [facility] [phone] * Trini Torres PA-C - 04/07/2023 2:50 PM CDT [facility] Orthopedic Consultation Mora Galeas Age: [age] [...] She had increased pain and xrays at [facility] and was told xrays were negative. Unfortunately, patient was found to have a left hip periprosthetic fracture at her follow-up appointment yesterday at [facility] and was referred to the hospital [...] SH OR CARPAL TUNNEL RELEASE RT/LT Bilateral SURVEYOR HELPER SURGERY c section x 3 OPEN REDUCTION [...] Status --------- ------ CBC with platelets and d...[[id number]] Please view results for these tests on the individual orders. ABO/Rh type and screen Status: None () Narrative The following orders were created for panel order ABO/Rh type and screen. Procedure Abnormality Status --------- ------ Adult Type and Screen[[id number]] Please view results for these tests on [...] pop in her hip. She presented to [facility] where x-rays were read as negative. She has since followed up at [facility] where new x-rays were obtained and [...] Smith RN - 04/07/2023 3:20 PM CDT [facility] ED Nurse Handoff Report ED Chief complaint: Hip Pain . ED Diagnosis: Final diagnoses: Periprosthetic hip fracture, initial encounter Allergies: Allergies Allergen Reactions Aspirin Anaphylaxis Code Status: Full Code Activity level - Baseline/Home: independent. Activity Level - Current: in bed. Lift room needed: No. Bariatric: No Leather Case Finisher Needed: No Isolation: No. Infection: Not Applicable. [...] 5 mg (5 mg Oral $Given 04/07/23 1388) Drips infusing: No For the majority of [...] Patient Only Review of External Notes: Reviewed [facility] Ortho note Dr. Cj Issa home [...] partially visualized. JEROD YEAGER MD SYSTEM ID: [id number] Report per radiology Laboratory: Labs Ordered and [...] NEG Antibody Screen Negative SPECIMEN EXPIRATION DATE [id number] ABO/RH TYPE AND SCREEN Emergency Department Course [...] REDUCTION INTERNAL FIXATION PROXIMAL FEMUR Scribe Disclosure: IMauneled, am serving as a scribe at 2:32 PM on 04/07/2023 to document services personally performed by Rusty Shcultz PA-C based on my observations and the [...] 2-3 Expected length of therapy undetermined. Warfarin CLOUD SYSTEMS ARCHITECT Regimen: 2.5 mg daily Anticoagulation Dose History [...] goal(s). See goals on Care Plan in [facility] electronic health record for goal [...] goal(s). See goals on Care Plan in [facility] electronic health record for goal [...] analgesics: Yes Does patient have an identified gymnastics coach: Yes Has goal D/C date and [...] analgesics: Yes Does patient have an identified gymnastics coach: Yes Has goal D/C date and [...] analgesics: Yes Does patient have an identified gymnastics coach: Yes Has goal D/C date and [...] Reason: IVC Does patient have an identified gymnastics coach: Yes Has goal D/C date and [...] Stevenson RN - 04/09/2023 4:00 PM CDT [employer] Web Paged Dr. Linn: Tachy HRs 130-140s, [...] 10 mg. Does patient have an identified gymnastics coach: Yes, was at bedside this afternoon. [...] 2-3 Warfarin Prior to Admission: Yes Warfarin CLOUD SYSTEMS ARCHITECT Regimen: 2.5 mg daily Significant drug interactions: [...] CDT ORTHOPEDIC SURGERY OPERATIVE NOTE Mora Galeas [id number] 1960 April 08, 2023 PREOPERATIVE DIAGNOSIS: Left [...] the pre-existing implant. SURGEON: Fazal Ramirez MD PODIATRIST ASSISTANT: Rohini Beal PA-C; A skilled miller first was necessary for this procedure for assistance with patient positioning, prepping, draping, surgical visualization, wound closure, and application of the dressing. Vira Fernandes PA-C SPECIMENS: None COMPLICATIONS: None ESTIMATED BLOOD LOSS: 350cc IMPLANTS: Implant Name Type Inv. Item Serial No. Paint Specialist Lot No. LRB No. Used Action IMP HEAD FEMORAL STRK BIOLOX DELTA CERAMIC 36MM +2.5MM - [id number] Total Joint Component/Insert IMP HEAD FEMORAL STRK BIOLOX DELTA CERAMIC 36MM +2.5MM HireAHelper [id number] Left 1 Explanted IMP STEM FEMORAL HIP STRK ACCOLADE II 132DEG SZ 5 4315-8386 - [id number] Total Joint Component/Insert IMP STEM FEMORAL HIP STRK ACCOLADE II 132DEG SZ 5 8024- 3814 HireAHelper [id number] Left 1 Explanted FiberTape Cerclage, 2mm, 48 ARTHREX [id number] Left 3 Implanted IMP STEM FEM RSTRTN MOD BOWED CONICAL [id number] - [id number] Total Joint Component/InsertIMP STEM FEM RSTRTN MOD BOWED CONICAL [id number] HireAHelper [id number] Left 1 Implanted IMP INSERT ACET STRK MDM COCR HIP 0DEG 42MM SZ E [id number] - [id number] Total Joint Component/Insert IMP INSERT ACET STRK MDM COCR HIP 0DEG 42MM SZ E 6242E HireAHelper [id number] Left 1 Implanted IMP STEM FEM MOD REV HIP PROX BODY/BOLT 19MM +10 119 - [id number] Total Joint Component/Insert IMP STEM FEM MOD REV HIP PROX BODY/BOLT 19MM +10 119 HireAHelper [id number] Left 1 Implanted INSERT ACTB 42MM 28MM E HIP X3 ADM STRL [facility] 7236-2-848 - [id number] Metallic Hardware/[place] INSERT ACTB 42MM 28MM E HIP X3 ADM STRL [facility] 7236-2-848 HireAHelper [id number] Left 1 Implanted IMP HEAD FEMORAL STRK BIOLOX DELTA CERAMIC 28MM +4MM - [id number] Total Joint Component/Insert IMP HEAD FEMORAL STRK BIOLOX DELTA CERAMIC 28MM +4MM HireAHelper [id number] Left 1 Implanted FiberTape Cerclage, 2mm, 48 [id number] ARTHREX Left 1 Implanted FiberTape Cerclage, 2mm, 48 ARTHREX [id number] Left 1 Implanted PRIOR IMPLANTS: She has a [place] 52 mm Trident TriTanium cluster hole acetabular [...] pop in her hip. She presented to [facility] where x-rays were read as negative. She has since followed up at [facility] where new x-rays were obtained and [...] be loose and easilyremoved with a vice tool grinding machine operator Revision hip arthroplasty We then proceeded with placement of a new stem. Prior to placement of the new stem, a Arthrex fibertape cerclage was placed just distal to the fracture along the femoral shaft to prevent any propagation of a femoral shaft fracture. The Affectv nondenominational modular implant system was utilized. The femoral shaft was reamed sequentially up to a size 19mm. Intraoperative radiographs were obtained to ensure good fit. A [id number] was selected and implanted into the femoral [...] Ramirez's clinic in [address] Ramirez's palliative care nurse practitioner is Dede Sadler. Please contact her at [phone] to schedule an appointment. Dr. Ramirez sees patient's at 2 clinic locations: [facility] [address], [place] [address] [place] [address] Orthopedics - [place] [address] , [address], [place] [address] Please call the on-call phone number [phone] during evenings, nights and weekends for any urgent needs. Prescription refills must be done during business hours by calling [phone] Fazal Ramirez MD [facility] * Plan of Care - [...] through pain Does patient have an identified gymnastics coach: Yes Has goal D/C date and [...] Yes Information Source(s): Patient, Hospital records, and CareEverywhere/[facility] in-person Pertinent Information: Pt recently started warfarin following surgery a couple of weeks ago - Rx states to take two 2.5 mg tabs daily (5 mg total), however pt has only been taking one 2.5 mg tab daily. Pt states has green colored tabs at home. Changes made to CLOUD SYSTEMS ARCHITECT medication list: Added: None Deleted: None Changed: Warfarin 5 mg daily -> 2.5 mg daily Senna-doc -> PRN Allergies reviewed with patient and updates made in EHR: yes Medication History Completed By: Trini Josue RPH 04/07/2023 6:44 PM Prior to Admission medications Medication Sig Last Dose Taking? Auth Provider Puzzle Assembler End Date acetaminophen (TYLENOL) 325 MG tablet [...] Locke MD LAB - BLOOD ORDERABL ES [facility] [address] (1st floor, no room number) [place] [phone], [facility] [phone] * (ABNORMAL) Hemoglobin (04/12/2023 6:41 AM CDT) Hemoglobin 7.8(L) 11.7 - 15.7 g/dL 04/12/2023 6:49 AM CDT [facility] LABORATORY Blood STRUCTURE OF LEFT HAND / Unknown Venipuncture / Unknown 04/12/2023 6:41 AM CDT 04/12/2023 6:45 AM CDT Jonathan Linn MD LAB - BLOOD ORDERABL ES [facility] [address] Lab (1st floor, no room number) [place] [address], [facility] [phone] * (ABNORMAL) INR (04/12/2023 6:41 AM CDT) INR 1.28(H) 0.85 - 1.15 04/12/2023 6:58 AM CDT [facility] LABORAT[facility] Blood STRUCTURE OF LEFT HAND / Unknown Venipuncture / Unknown 04/12/2023 6:41 AM CDT 04/12/2023 6:45 AM CDT Rohini PEDERSON-Gavi LAB - BLOOD ORDERA BLES Performing Organization Address [facility] Co de Phone Number [facility] [address] Lab (1st floor, no room number) [place] [id number], [facility] [phone] * (ABNORMAL) Hemoglobin (04/11/2023 5:58 PM CDT) Hemoglobin 7.6(L) 11.7 - 15.7 g/dL 04/11/2023 6:06 PM CDT [facility] LABOR[facility] Blood STRUCTURE OF RIGHT UPPER LIMB / Unknown Venipuncture / Unknown 04/11/2023 5:58 PM CDT 04/11/2023 6:01 PM CDT Jonathan Linn MD LAB - BLOOD ORDERABL ES Performing Organization Address [email or web address]] de Phone Number [facility] [address] Lab (1st floor, no room number) [place] [phone], [facility] [phone] * (ABNORMAL) INR (04/11/2023 6:51 AM CDT) INR 1.29(H) 0.85 - 1.15 04/11/2023 7:20 AM CDT [facility] LAB[facility] Blood STRUCTURE OF RIGHT UPPER LIMB / Unknown Venipuncture / Unknown 04/11/2023 6:51 AM CDT 04/11/2023 7:03 AM CDT Rohini PEDERSON-Gavi LAB - BLOOD ORDERA BLES LABORATORY [facility] Lab [address] Lab (1st floor, no room number) [place] [address], [facility] [phone] * Platelet count (04/11/2023 6:51 AM CDT) Platelet Count 383 150 - 450 10e3/uL 04/11/2023 7:06 AM CDT [facility] LABORATORY Blood STRUCTURE OF RIGHT UPPER LIMB / Unknown Venipuncture / Unknown 04/11/2023 6:51 AM CDT 04/11/2023 7:03 AM CDT Rohini Beal PA-C LAB - BLOOD ORDERA BLES Performing Organization Address City/[facility]/ZIP Co de Phone Number LABORATORY [facility] Acute Care Lab [address] Lab (1st floor, no room number) [place] [address], [facility] [phone] * (ABNORMAL) Hemoglobin (04/11/2023 6:51 AM CDT) Hemoglobin 7.7(L) 11.7 - 15.7 g/dL 04/11/2023 7:06 AM CDT [facility] LAB[facility]AT[facility] Blood STRUCTURE OF RIGHT UPPER LIMB / Unknown Venipuncture / Unknown 04/11/2023 6:51 AM CDT 04/11/2023 7:03 AM CDT Jonathan Linn MD LAB - BLOOD ORDERABL ES LABORATORY [facility] Acute Care Lab [address] Lab (1st floor, no room number) [place] [address], [facility] [phone] * Transfuse red blood cells (unit) (04/10/2023 11:32 PM CDT) Isabel Hawthorne MD BLOOD TRANSFUSION OR DERABLES * Transfuse red blood cells (unit), 1 Units (04/10/2023 11:32 PM CDT) Isabel Hawthorne MD BLOOD TRANSFUSION OR DERABLES * Prepare red blood cells (unit) (04/10/2023 8:23 PM CDT) Blood Component Type Red Blood Cells RH BLOOD BANK Product Code [id number] RH BLOO D BANK Unit Status Transfused RH BLOO D BANK Unit Number [id number] RH B LOOD BANK CROSSMATCH Compatible RH BLOOD BANK CODING SYSTEM [id number] RH BLO OD BANK ISSUE DATE AND TIME [id number] RH BLOOD BANK UNIT ABO/RH A- RH BLOOD BANK UNIT TYPE ISBT 0600 RH BL OOD BANK 04/10/2023 8:23 PM CDT Isabel Hawthorne MD BLOOD BANK PRODUCT O RDERABLES Performing Organization Address [facility] Co de Phone Number BLOOD BANK [address] [place] [address] * Adult Type and Screen (04/10/2023 8:04 PM CDT) ABO/RH(D) A NEG 04/10/2023 7:13 PM CDT RH BLOOD BANK Antibody Screen Negative Negative 04/10/2023 7:13 PM CDT RH BLOOD BANK SPECIMEN EXPIRATION DATE [id number] 04/10/2023 7:13 PM CDT RH BLOOD BANK Blood STRUCTURE OF RIGHT UPPER LIMB / Unknown Venipuncture / Unknown 04/10/2023 8:04 PM CDT 04/10/2023 8:06 PM CDT Drake Aburto MD LAB - BLOOD BANK RENITA T ORDER Performing Organization Address [facility] Co de Phone Number BLOOD BANK [address] [place] [address], [facility] * CT Pelvis Soft Tissue w Contrast [...] CT PELVIS SOFT TISSUE W CONTRAST LOCATION: [facility] DATE: 04/10/2023 INDICATION: Hgb 9 [...] CT PELVIS SOFT TISSUE W CONTRAST LOCATION: [facility] DATE: 04/10/2023 INDICATION: Hgb 9 [...] - BLOOD ORDERABL ES Performing Organization Address [facility]/ZIP Co de Phone Number [facility] [address] Lab (1st floor, no room number) [place] [address], [facility] [phone] * (ABNORMAL) Glucose (04/10/2023 7:07 AM CDT) Glucose 108(H) 70 - 99 mg/dL 04/10/2023 7:36 AM CDT LABORATORY Blood STRUCTURE OF RIGHT UPPER LIMB / Unknown Venipuncture / Unknown 04/10/2023 7:07 AM CDT 04/10/2023 7:12 AM CDT Jonathan Linn MD LAB - BLOOD ORDERABL ES [facility] [facility] [address] (1st floor, no room number) [place] [address], [facility] [phone] * (ABNORMAL) INR (04/10/2023 7:07 AM CDT) INR 1.31(H) 0.85 - 1.15 04/10/2023 7:26 AM CDT LABORATORY Blood STRUCTURE OF RIGHT UPPER LIMB / Unknown Venipuncture / Unknown 04/10/2023 7:07 AM CDT 04/10/2023 7:12 AM CDT Rohini Beal PA-C LAB - BLOOD ORDERA BLES RH LABORATORY [facility] Care Lab [address] Lab (1st floor, no room number) [place] [address], [facility] [phone] * (ABNORMAL) Basic metabolic panel (04/10/2023 7:07 [...] LAB - BLOOD ORDERABL ES RH LABORATORY [facility] Acute Care Lab [address] Lab (1st floor, no room number) [place] [address], [facility] [phone] * (ABNORMAL) CBC with platelets (04/10/2023 7:07 [...] MD LAB - BLOOD ORDERABL ES LABORATORY [facility] Acute Care Lab [address] Lab (1st floor, no room number) [place] [address], [facility] [phone] * (ABNORMAL) INR (04/09/2023 7:39 AM CDT) INR 1.18(H) 0.85 - 1.15 04/09/2023 8:20 AM CDT LABORATORY Blood STRUCTURE OF RIGHT HAND / Unknown Venipuncture / Unknown 04/09/2023 7:39 AM CDT 04/09/2023 7:47 AM CDT Rohini Beal PA-C LAB - BLOOD ORDERA BLES RH LABORATORY [facility] Lab [address] Lab (1st floor, no room number) [place] [address], [facility] [phone] * (ABNORMAL) Basic metabolic panel (04/09/2023 7:39 AM CDT) Pathologist [facility] Sodium 133(L) 136 - 145 mmol/L 04/09/2023 [...] MD LAB - BLOOD ORDERABL ES LABORATORY [facility] Care Lab [address] Lab (1st floor, no room number) [place] [address], [facility] [phone] * (ABNORMAL) CBC with platelets (04/09/2023 7:39 [...] MD LAB - BLOOD ORDERABL ES LABORATORY [facility] Acute Care Lab [address] Lab (1st floor, no room number) [place] [address], [place] [phone] * (ABNORMAL) INR (04/08/2023 6:15 PM CDT) INR 1.26(H) 0.85 - 1.15 04/08/2023 6:41 PM CDT RH LABORATORY Blood STRUCTURE OF RIGHT HAND / Unknown Venipuncture / Unknown 04/08/2023 6:15 PM CDT 04/08/2023 6:28 PM CDT Rohini Beal PA-C LAB - BLOOD ORDERA BLES LABORATORY [facility] [address] ([facility] floor, no room number) [place] [address], [facility] [phone] * XR Pelvis w Hip Port Left [...] alignment. Osteopenia. POLO GARCIA MD SYSTEM ID: ??[id number] Narrative 04/08/2023 4:18 PM CDT XR PELVIS [...] alignment. Osteopenia. POLO GARCIA MD SYSTEM ID: [id number] [facility]-C IMG DIAGNOSTIC PARAM GING ORDERABLES * Creatinine (04/08/2023 3:36 PM CDT) Creatinine 0.54 0.51 - 0.95 mg/dL 04/08/2023 5:00 PM CDT RH LABORATORY GFR Estimate >90 >60 mL/min/1.73 m2 04/08/2023 5:00 PM CDT RH LABORATORY Blood STRUCTURE OF RIGHT HAND / Unknown Venipuncture / Unknown 04/08/2023 3:36 PM CDT 04/08/2023 4:40 PM CDT Rohini Sampsonvernon NV-C LAB - BLOOD ORDERA BLES Performing Organization Address City/[facility]/ZIP Co de Phone Number [facility] Lab [address] Lab (1st floor, no room number) [place] [address], [facility] [phone] * XR Surgery RAAD L/T 5 Min Fluoro w Stills (04/08/2023 2:18 PM CDT) Narrative [facility] - 04/08/2023 2:19 PM CDT This exam was marked as non-reportable because it will not be read by a radiologist or a [place] non-radiologist provider. Fazal Ramirez MD IMG DIAGNOSTIC PARAM GING ORDERABLES Performing Organization Address City/[facility]/ZIP Co de Phone Number [facility] * (ABNORMAL) INR (04/08/2023 3:57 AM CDT) INR 1.39(H) 0.85 - 1.15 04/08/2023 4:28 AM CDT RH LABORATORY Blood STRUCTURE OF RIGHT UPPER LIMB / Unknown Venipuncture / Unknown 04/08/2023 3:57 AM CDT 04/08/2023 4:17 AM CDT Deyanira Locke MD LAB - BLOOD ORDERABL ES Performing Organization Address City/[facility]/ZIP Co de Phone Number RH LABORATORY [facility] Acute Care Lab [address] Lab (1st floor, no room number) [place] [address], [facility] [phone] * (ABNORMAL) CBC with platelets (04/08/2023 3:57 [...] MD LAB - BLOOD ORDERABL ES LABORATORY [facility] Care Lab [address] Lab (1st floor, no room number) [place] [address], [facility] [phone] * (ABNORMAL) Basic metabolic panel (04/08/2023 3:57 AM CDT) Pathologist [facility] Sodium 136 136 - 145 mmol/L 04/08/2023 [...] MD LAB - BLOOD ORDERABL ES LABORATORY [facility] Care Lab [address] [facility] Lab (1st floor, no room number) [place] [address], [facility] [phone] * CT Hip Left w/o Contrast (04/07/2023 [...] partially visualized. JEROD YEAGER MD SYSTEM ID: ??[id number] Narrative 04/07/2023 4:[address] HIP [...] partially visualized. JEROD YEAGER MD SYSTEM ID: [id number] Trini Torres PA-C IMG CT ORDERABLES * Adult Type and Screen (04/07/2023 2:54 PM CDT) ABO/RH(D) A NEG 04/07/2023 2:42 PM CDT RH BLOOD BANK Antibody Screen Negative Negative 04/07/2023 2:42 PM CDT RH BLOOD BANK SPECIMEN EXPIRATION DATE [id number] 04/07/2023 2:42 PM CDT RH BLOOD BANK Blood BLOOD SPECIMEN / Unknown Venipuncture / Unknown 04/07/2023 2:54 PM CDT 04/07/2023 3:02 PM CDT Rusty Schultz PA-C LAB - BLOOD B ANK TEST ORDER Performing Organization Address City/State/[facility] Co de Phone Number BLOOD BANK [address] [place] [address] * (ABNORMAL) CBC with platelets and [...] LAB - BLOOD O RDERABLES RH LABORATORY [facility] Acute Care Lab [address] Lab (1st floor, no room number) [place] [address], [facility] [phone] * (ABNORMAL) Basic metabolic panel (BMP) (04/07/2023 [...] PA-C LAB - BLOOD O RDERABLES LABORATORY [facility] Acute Care Lab [address] Lab (1st floor, no room number) [place] [address], [facility] [phone] * Partial thromboplastin time (04/07/2023 2:54 PM CDT) aPTT 33 22 - 38 Seconds 04/07/2023 3:15 PM CDT RH LABORATORY Blood BLOOD SPECIMEN / Unknown Venipuncture / Unknown 04/07/2023 2:54 PM CDT 04/07/2023 3:02 PM CDT Rusty Schultz PA-C LAB - BLOOD O EDDA [facility] Care Lab [address] Lab (1st floor, no room number) [place] [address], [facility] [phone] * (ABNORMAL) INR (04/07/2023 2:54 PM CDT) INR 1.40(H) 0.85 - 1.15 04/07/2023 3:14 PM CDT LABORATORY Blood BLOOD SPECIMEN / Unknown Venipuncture / Unknown 04/07/2023 2:54 PM CDT 04/07/2023 3:02 PM CDT Rusty Schultz PA-C LAB - BLOOD O EDDA Performing Organization Address City/[facility]/ZIP Co de Phone Number [facility] Care Lab [address] (1st floor, no room number) [place] [address], [facility] [phone] documented in this encounter Visit Diagnoses Diagnosis [...] analgesic side effects. Hold while on IV PATIENT SITTER or with regular IV opioid dosing., , [...] analgesic side effects. Hold while on IV PATIENT SITTER or with regular IV opioid dosing., , [...] SRAVANI)194 (Not Given - Provider: Elizabeth Deleon, SRAAVNI - Reason: Patient/family refused) 0923 ($Given - [...] analgesic side effects. Hold while on IV PATIENT SITTER or with regular IV opioid dosing., , [...] analgesic side effects. Hold while on IV PATIENT SITTER or with regular IV opioid dosing., , [...] analgesic side effects. Hold while on IV PATIENT SITTER or with regular IV opioid dosing., , [...] analgesic side effects. Hold while on IV PATIENT SITTER or with regular IV opioid dosing., , [...] documented as of this encounter Care Teams Hardware Installer Relationship Specialty Start Date End Date Case Gao [address] [place] [address] PCP - General Family Medicine 01/25/21 documented as of this encounter
--- OUTSIDE RECORDS SUMMARY | 2023-10-26 13:46 | XMS_ITS | Encounter Summary ---
Author Name Unknown Organization [facility] Address [address] [place] [address] Care Team Providers Care Die Cutter Apprentice Name Role Phone Case Gao Sierra Primary Care Provider [phone] Reason for Visit * Auth/Cert (Routine) Specialty Diagnoses / Procedures Referred By Konstantin katz Referred To Contact Surgery Diagnoses Primary osteoarthritis of left hip Primary osteoarthritis of left hip [M16.12] Procedures MT TOTAL HIP ARTHROPLASTY left total hip arthroplasty [facility] [address] [place] [address] Referral ID Status Reason Start Date Expiration Date Visits Re quested Visits Authorized 1 1 Encounter Details Date Type Department Care Team (Late st Contact Info) Description 03/25/2023 7:35 AM CDT Anesthesia Event [facility] [address] [place] [address] Trini Munoz [facility] [address] [facility] [place] [id number] Anesthesia Record Procedure Summary Procedure Name Responsible [...] recorded are pre- induction. Melissa Molina APRN MANAGER CONTINUOUS IMPROVEMENT 0736 Anesthesia Ready for Procedu re 0754 [...] procedure. Pt tolerated well. No complications. FOR [facility] ([facility]) ONLY: Pain Team Contact information: please page the Pain Team Via [employer]Search Pain. During daytime hours, please page the [...] ??? CARPAL TUNNEL RELEASE RT/LT Bilateral ??? FOAM MACHINE OPERATOR SURGERY c section x 3 ??? OPEN [...] and realistic alternatives discussed. Questions answered and patient/wireless sales representative(s) expressed understanding. - Discussed: - [...] Pt tolerated well. ?? No complications. FOR [facility] ([facility]) ONLY: ?? Pain Team Contact information: please page the Pain Team Via [employer] Pain. During daytime hours, please page the attending first. At night please page the resident first. Trini Munoz [place] ANESTHESIA documented in this encounter Visit Diagnoses [...] documented as of this encounter Care Teams Die Cutter Apprentice Relationship Specialty Start Date End Date Case Gao [address] [place] [address] PCP - General Family Medicine 01/25/21 documented as of this encounter
--- OUTSIDE RECORDS SUMMARY | 2023-10-26 13:46 | XMS_ITS | Encounter Summary ---
Author Name Unknown Organization [facility] Address [address] [place] [address]. [place] [address] Care Team Providers Care Vp Training Name Role Phone Case Gao Primary Care Provider Encounter Details Date Type Department Care Team ([facility] Contact Info) Description 03/15/2023 Medical Correspondence [facility] Info [facility] [address] [place] [address] Outside, Provider Social History Tobacco Use [...] documented as of this encounter Care Teams Vp Training Relationship Specialty Start Date End Date Case [place] [address] [place] [address] PCP - General Family Medicine 01/25/21 documented as of this encounter
--- OUTSIDE RECORDS SUMMARY | 2023-10-26 13:46 | XMS_ITS | Encounter Summary ---
Author Name Unknown Organization [facility] Address [address] [place] [address] Care Team Providers Care Counsellors Name Role Phone Case Gao Primary Care Provider [phone] Encounter Details Date Type Department Care Team [...] documented as of this encounter Care Teams Counsellors Relationship Specialty Start Date End Date Case Gao [address] [place] [address] PCP - General Family Medicine 01/25/21 documented as of this encounter
== END 2023-10-26 13:40 | disposition home or self-care (01) ==
LOC: WOUND 13:42
PROVIDERS: PCP Family Medicine; Visit Provider Physician Assistant
DX: I87.2 Venous insufficiency (chronic) (peripheral) (principal); L97.818 Non-pressure chronic ulcer of other part of right lower leg with other specified severity; S81.001A Unspecified open wound, right knee, initial encounter; F41.9 Anxiety disorder, unspecified; Z79.60 Long term (current) use of unspecified immunomodulators and immunosuppressants
CPT/HCPCS: 97597

== ENCOUNTER 2023-11-02 13:25 | Outpatient (CLI) | payer BC, SELFPAY | END 2023-11-02 13:26 | disposition home or self-care (01) | LOC: WOUND 13:25 | PROVIDERS: PCP Family Medicine; Visit Provider Surgery | DX: I87.2 Venous insufficiency (chronic) (peripheral) (principal); L97.815 Non-pressure chronic ulcer of other part of right lower leg with muscle involvement without evidence of necrosis; Z79.60 Long term (current) use of unspecified immunomodulators and immunosuppressants; M06.9 Rheumatoid arthritis, unspecified | CPT/HCPCS: 97597 ==

== ENCOUNTER 2023-11-09 13:45 | Outpatient (CLI) | payer BC, SELFPAY | END 2023-11-09 13:46 | disposition home or self-care (01) | PROVIDERS: PCP Family Medicine; Visit Provider Surgery | DX: I87.2 Venous insufficiency (chronic) (peripheral) (principal); L97.815 Non-pressure chronic ulcer of other part of right lower leg with muscle involvement without evidence of necrosis; M06.9 Rheumatoid arthritis, unspecified; Z79.60 Long term (current) use of unspecified immunomodulators and immunosuppressants | CPT/HCPCS: 11104; 87070; 87186; 88305; G0463 ==

== ENCOUNTER 2023-11-16 13:37 | Outpatient (CLI) | payer BC, SELFPAY | END 2023-11-16 13:38 | disposition home or self-care (01) | LOC: WOUND 13:37 | PROVIDERS: PCP Family Medicine; Visit Provider Family Medicine | DX: I87.2 Venous insufficiency (chronic) (peripheral) (principal); L97.815 Non-pressure chronic ulcer of other part of right lower leg with muscle involvement without evidence of necrosis; M06.9 Rheumatoid arthritis, unspecified; Z79.60 Long term (current) use of unspecified immunomodulators and immunosuppressants | CPT/HCPCS: G0463 ==

== ENCOUNTER 2023-11-23 13:54 | Outpatient (CLI) | payer BC, SELFPAY | END 2023-11-23 13:55 | disposition home or self-care (01) | LOC: WOUND 13:54 | PROVIDERS: PCP Family Medicine; Visit Provider Surgery | DX: I87.2 Venous insufficiency (chronic) (peripheral) (principal); L97.815 Non-pressure chronic ulcer of other part of right lower leg with muscle involvement without evidence of necrosis; Z79.60 Long term (current) use of unspecified immunomodulators and immunosuppressants | CPT/HCPCS: 97597 ==

== ENCOUNTER 2023-11-30 13:37 | Outpatient (CLI) | payer BC, SELFPAY | END 2023-11-30 13:38 | disposition home or self-care (01) | LOC: WOUND 13:37 | PROVIDERS: PCP Family Medicine; Visit Provider Surgery | DX: I87.2 Venous insufficiency (chronic) (peripheral) (principal); L97.815 Non-pressure chronic ulcer of other part of right lower leg with muscle involvement without evidence of necrosis; Z79.60 Long term (current) use of unspecified immunomodulators and immunosuppressants | CPT/HCPCS: 11042 ==

== ENCOUNTER 2023-12-07 14:29 | Outpatient (CLI) | payer BC, SELFPAY | END 2023-12-07 14:30 | disposition home or self-care (01) | LOC: WOUND 14:29 | PROVIDERS: PCP Family Medicine; Visit Provider Surgery | DX: I87.2 Venous insufficiency (chronic) (peripheral) (principal); L97.812 Non-pressure chronic ulcer of other part of right lower leg with fat layer exposed; Z79.60 Long term (current) use of unspecified immunomodulators and immunosuppressants | CPT/HCPCS: 11042 ==

== ENCOUNTER 2023-12-14 13:47 | Outpatient (CLI) | payer BC, SELFPAY ==
--- OUTSIDE RECORDS SUMMARY | 2023-12-14 13:49 | XMS_ITS | Clinical Summary ---
Author Name Unknown Organization [facility] Address [address] [place] [address] Care Team Providers Care Hub Borer Name Role Phone Case Gao Primary Care Provider [phone] Allergies Active Allergy Reactions Criticality Noted Date Comments Aspirin Anaphylaxis High 01/25/2021 Medications Medication Sig Dispensed Refills Start Date End Date Status predniSONE (DELTASONE) 5 MG tablet Take 1 tablet by mouth as needed Active methotrexate 2.5 MG tablet Take 10 tablets by mouth every 7 days Wednesdays (10 x 2.5 mg = 25 mg) Active etanercept (ENBREL) 50 MG/ML injection Inject 50 mg Subcutaneous once a week Wednesdays Active folic acid (FOLVITE) 1 MG tablet Take 1 mg by mouth daily Active hydroxychloroquine (PLAQUENIL) 200 MG tablet Take 2 tablets by mouth every morning (2 x 200 mg = 400 mg) Active lisinopril-hydrochl orothiazide (ZESTORETIC) 10-12.5 MG tablet Take 1 tablet by mouth daily Active venlafaxine (EFFEXOR) 75 MG tablet Take 3 tablets by mouth 2 times daily (3 x 75 mg = 225 mg) Active levETIRAcetam (KEPPRA) 500 MG tablet Take 2 tablets by mouth 2 times daily (2 x 500 mg = 1,000 mg) Active hydrOXYzine (ATARAX) 25 MG tabletIndications:S tatus post total hip replacement, left Take 1 tablet (25 mg) by mouth every 6 hours as needed for itching or anxiety (with pain, moderate pain) 337.5 tablet 03/25/2023 Active acetaminophen (TYLENOL) 325 MG tabletIndications:P eriprosthetic hip fracture, initial encounter Take 3 tablets (975 mg) by mouth every 8 hours as needed for mild pain 60 tablet 04/10/2023 Active HYDROmorphone (DILAUDID) 2 MG tabletIndications:P eriprosthetic hip fracture, initial encounter Take 1 tablet (2 mg) by mouth every 3 hours as needed for severe pain 20 tablet 04/10/2023 Active senna-docusate (SENOKOT-S/PERICOLA CE) 8.6-50 MG tabletIndications:P eriprosthetic hip fracture, initial encounter Take 1 tablet by mouth 2 times daily as needed for constipation 04/11/2023 Active warfarin ANTICOAGULANT (COUMADIN) 2.5 MG tabletIndications:S tatus post hip replacement, unspecified laterality Take 5 mg daily on 04/12 and 04/13 and then check INR for further dosing 20 tablet 04/12/2023 Active Active Problems Problem Noted Date [...] Plan Total Joint Replacement Hip Pathway No Nito, Octavia J Medical Devices Implanted Type Area Home Improvement Contractor Device Identifier Shelf Expiration Date Model / Serial / Lot Insert Actb 42mm 28mm E Hip X3 Adm Strl Lf Mdm 7236-2-848 - [id number] Implanted:Qty: 1 on 04/08/2023 by Fazal Ramirez MD at [facility] [place] Metallic Hardware/An chor Left: Hip MATTHEW 6[employer] [id number] 10/07/2027 7236-2-8 48 / / [id number] Trident Ii Tritanium Clusterhole 52e - [id number] Implanted:Qty: 1 on 03/25/2023 by Cj Chen MD at [facility] Total Joint Component/I nsert Left: Hip [employer] 12/29/2027 702-04-5 2E / / [id number] A Insert El 36mm 0deg X3 723-00-36e - [id number] Implanted:Qty: 1 on 03/25/2023 by Cj Chen MD at [facility] Total Joint Component/I nsert Left: Hip MATTHEW 6[employer] 12/24/2027 723-00-3 6E / / [id number] Imp Stem Fem Rstrtn Mod Bowed Conical [id number] 6276-7-219 - [id number] Implanted:Qty: 1 on 04/08/2023 by Fazal Ramirez MD at [facility] Total Joint Component/I nsert Left: Hip MATTHEW 6[employer] [id number] 02/14/2027 6276-7-2 19 / / [id number] Imp Insert Acet Strk Mdm Cocr Hip 0deg 42mm Sz E 626-00-42e - [id number] Implanted:Qty: 1 on 04/08/2023 by Fazal Ramirez MD at [facility] Total Joint Component/I nsert Left: Hip MATTHEW 6[employer] [id number] 01/13/2028 626-00-4 2E / / [id number] Imp Stem Fem Mod Rev Hip Prox Body/Sidell 19mm +10 6276-1-119 - [id number] Implanted:Qty: 1 on 04/08/2023 by Fazal Ramirez MD at [facility] Total Joint Component/I nsert Left: Hip [employer] [id number] 08/15/2024 6276-1-1 [id number] Imp Head Femoral Strk Biolox Delta Ceramic 28mm +4mm - [id number] Implanted:Qty: 1 on 04/08/2023 by Fazal Ramirez MD at [facility] Total Joint Component/I nsert Left: Hip [employer] [id number] 10/31/2027 6570-0-2 28 / / [id number] Fibertape Cerclage, 2mm, 48 Implanted:Qty: 3 on 04/08/2023 by Fazal Ramirez MD at [facility] Left: Hip ARTHREX 06/04/2027 AR-7268 / / [id number] Fibertape Cerclage, 2mm, 48 Implanted:Qty: 1 on 04/08/2023 by Fazal Ramirez MD at [facility] Left: Hip ARTHREX 01/03/2028 AR-7268 / [id number] / Fibertape Cerclage, 2mm, 48 Implanted:Qty: 1 on 04/08/2023 by Fazal Ramirez MD at [facility] Left: Hip ARTHREX 11/03/2027 AR-7268 / / [id number] Explanted Type Area Home Improvement Contractor Device Identifier Shelf Expiration Date Model / Serial / Lot Imp Stem Femoral Hip Strk Accolade Ii 132deg Sz 5 2952-6944 - [id number] Implanted:Qty: 1 on 03/25/2023 by Cj Chen MD at [facility] Explanted:Qty: 1 on 04/08/2023 by Fazal Ramirez MD at [facility] Total Joint Component /Insert Left: Hip [employer] 03/03/2027 6051-2134 / / [id number] Imp Head Femoral Strk Biolox Delta Ceramic 36mm +2.5mm - [id number] Implanted:Qty: 1 on 03/25/2023 by Cj Chen MD at [facility] Explanted:Qty: 1 on 04/08/2023 by Fazal Ramirez MD at [facility] Total Joint Component /Insert Left: Hip [employer] 12/07/2027 6570-0-536 / / [id number] 6.5 Mm Cannulated Screws, 16mm Thread Length 80mm Implanted:Qty: 3 on 01/25/2021 by Cj Chen MD at [facility] Explanted:Qty: 3 on 03/25/2023 by Cj Chen MD at [facility] Left: Hip SYNTHES 408.411 24 JAN 2021 Titanium Washer, 13.0 Mm Implanted:Qty: 3 on 01/25/2021 by Cj Chen MD at [facility] Explanted:Qty: 3 on 03/25/2023 by Cj Chen MD at [facility] Left: Hip SYNTHES 419.99 24 JAN 2021 8002 Procedures Procedure Name Priority Date/Time Associated Diagnosis Comments BASIC METABOLIC PANEL Routine 04/10/2023 7:07 AM CDT COLONOSCOPY - HIM SCAN 10/25/2022 12:00 AM PET COUNSELOR from Last 3 Months or Most Recently Relevant to Health Maintenance Results * (ABNORMAL) Basic metabolic panel (04/10/2023 7:07 AM CDT) Sodium 136 136 - 145 mmol/L 04/10/2023 7:36 AM CDT RH LABORATORY Potassium 4.4 3.4 - 5.3 mmol/L 04/10/2023 7:36 AM CDT RH LABORATORY Chloride 102 98 - 107 mmol/L 04/10/2023 7:36 AM CDT RH LABORATORY Carbon Dioxide (CO2) 27 22 - 29 mmol/L 04/10/2023 7:36 AM CDT RH LABORATORY Anion Gap 7 7 - 15 mmol/L 04/10/2023 7:36 AM CDT RH LABORATORY Urea Nitrogen 11.2 8.0 - 23.0 mg/dL 04/10/2023 7:36 AM CDT RH LABORATORY Creatinine 0.56 0.51 - 0.95 mg/dL 04/10/2023 7:36 AM CDT RH LABORATORY Calcium 8.5(L) 8.8 - 10.2 mg/dL 04/10/2023 7:36 AM CDT LABORATORY Glucose 108(H) 70 - 99 mg/dL 04/10/2023 7:36 AM CDT RH LABORATORY GFR Estimate >90 >60 mL/min/1.7 3m2 04/10/2023 7:36 AM CDT RH LABORATORY Blood STRUCTURE OF RIGHT UPPER LIMB / Unknown Venipuncture / Unknown 04/10/2023 7:07 AM CDT 04/10/2023 7:12 AM CDT Jonathan Linn MD LAB - BLOOD ORDERABL ES LABORATORY [facility] Acute Care Lab [address] [facility] Lab (1st floor, no room number) [place] [address], [facility] [phone] * COLONOSCOPY - HIM SCAN (10/25/2022 12:00 AM PET COUNSELOR) 10/25/2022 Provider Outside PROCEDURES from Last 3 Months or Most Recently Relevant to Health Maintenance Additional Health Concerns Active Problems Noted Date Diagnosed Date Total Joint Replacement Hip Pathway 03/15/2023 Advance Directives For more information, please contact: [phone] * Full Code (Latest Code Status on File) Date Activated Date Inactivated Comments 04/10/2023 6:32 PM Question Answer Comments Code status determined by: Unable to dis cuss and no AD/POLST on file; continue PREVIOUSLY ORDERED code status * Full Code Date Activated Date Inactivated Comments 04/08/2023 3:20 PM 04/10/2023 6:32 PM All basic and advanced life-sustaining interventions are performed as appropriate Question Answer Comments Code status determined by: Unable to det ermine; FULL CODE until documents or legal decision maker available * Full Code Date Activated Date Inactivated Comments 04/07/2023 7:32 PM 04/08/2023 3:20 PM All basic and advanced life-sustaining interventions are performed as appropriate Question Answer Comments Code status determined by: Discussion with maria del carmen nt/ legal decision maker * Full Code Date Activated Date Inactivated Comments 04/07/2023 3:16 PM 04/07/2023 7:32 PM All basic and advanced life-sustaining interventions are performed as appropriate Question Answer Comments Code status determined by: Discussion with maria del carmen nt/ legal decision maker * Full Code Date Activated Date Inactivated Comments 03/25/2023 10:44 AM 03/26/2023 2:07 PM All basic a nd advanced life-sustaining interventions are performed as appropriate Question Answer Comments Code status determined by: Discussion with maria del carmen nt/ legal decision maker Care Teams Hub Borer Relationship Specialty Start Date End Date Case Gao [address] [place] [address] PCP - General Family Medicine 01/25/21
--- OUTSIDE RECORDS SUMMARY | 2023-12-14 13:49 | XMS_ITS | Clinical Summary ---
Author Name Unknown Organization [facility] Research Journalist [facility] Address [address] [address] Phone Care Team Providers Care Drafting Layout Man Name Role Phone Unavailable Primary Care Provider [...]
--- OUTSIDE RECORDS SUMMARY | 2023-12-14 13:49 | XMS_ITS | Clinical Summary ---
Author Name Unknown Organization [employer] Address [place], [place] [address] Care Team Providers Care Gaggerman Name Role Phone Case Gao MD Primary Care Provider Allergies Active Allergy Reactions Criticality Noted Date Comments Aspirin Edema 11/26/2006 Medications Medication Sig Dispensed Refills Start Date End Date Status folic acid 1 mg tabletIndications: Rheumatoid arthritis(714.0) TAKE 1 TABLET DAILY 90 tablet 3 02/11/2016 Active etanercept (EnbreL SureClick) 50 mg/mL (1 mL) pen injector Inject 50 mg subcutaneous every Tuesday. Active methotrexate (RHEUMATREX) 2.5 mg tablet Take 25 mg by mouth every Tuesday. Active hydrOXYchloroQUINE (PlaqueniL) 200 mg tablet Take 400 mg by mouth once daily. Active oxyCODONE (ROXICODONE) 5 mg immediate release tabletIndications: Hip pain, left Take 1 Tablet (5 mg) by mouth every 6 hours if needed for Pain. 20 Tablet 03/21/2023 Active levETIRAcetam (KEPPRA) 500 mg tabletIndications: Altered mental status, unspecified altered mental status type TAKE 2 TABLETS TWICE A DAY 360 Tablet 3 04/22/2023 Active lisinopril-hydroch lorothiazide (10-12.5 mg) tablet (PRINZIDE; ZESTORETIC)Indicat ions:Essential hypertension TAKE 1 TABLET BY MOUTH EVERY DAY 90 Tablet 2 04/25/2023 Active venlafaxine (EFFEXOR) 75 mg tabletIndications: Depression, unspecified depression type TAKE 3 TABLETS TWICE A DAY 540 Tablet 10/17/2023 Active venlafaxine (EFFEXOR XR) 150 mg Extended-Release capsuleIndications :Depression, unspecified depression type Take 2 Capsules (300 mg) by mouth once daily with evening meal. 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 10/14/2008 01/27/2021 Obesity, unspecified 11/26/2006 014 Encounters Date Type Department Care Team Description 11/15/2023 Telephone [facility] [address] [place] [address] Case Gao MD Questions 11/10/2023 Lab Requisition [facility] [phone] Vira Pepe MD 11/03/2023 Telephone [facility] [address] [place] [address] Case Gao MD Questions (UPDATE ON DISABILITY FORMS) 10/27/2023 7:45 AM ASSISTANT INFANT TEACHER Orders Only [facility] [address] [place] [address] Lab, [facility]; Outside Order (Ordered by Sarah Paez... 10/27/2023 Travel 10/20/2023 4:10 PM ASSISTANT INFANT TEACHER Office Visit [facility] [address] [place] [address] Case Gao MD Medication Management 10/20/2023 Travel 10/18/2023 Orders Only [address] [place] [address] Case Gao MD Outside Order (Ordered by Sarah Hilton) 10/17/2023 Telephone [facility] [address] [place] [address] Case Gao MD Medication Management (venlafaxine (EFFEXOR) [...] Comments Blood Pressure 116/76 10/20/2023 3:51 PM ASSISTANT INFANT TEACHER Pulse 74 10/20/2023 3:51 PM ASSISTANT INFANT TEACHER Temperature 36.7 ??C (98.1 ??F) 04/13/2023 7:48 AM CD T Respiratory Rate 16 02/27/2022 11:58 AM CDT Oxygen Saturation 100% 10/20/2023 3:51 PM ASSISTANT INFANT TEACHER Inhaled Oxygen Concentration - - Weight 92.1 kg (203 lb) 10/20/2023 3:51 PM ASSISTANT INFANT TEACHER Height 169.4 cm (5' 6.69) 03/21/2023 9:18 AM CD T Body Mass Index 32.09 03/21/2023 9:18 AM CDT Plan of Treatment Upcoming Encounters Date Type Department Care Team (Late st Contact Info) Description 01/13/2024 10:55 AM CDT Office Visit [facility] [address] [place] [address] Case Gao MD [address] [place] [address] Health Maintenance Due Date Last Done Comments HIV for age 15-65 1976 Zoster (shingles) series for age 50+ (1 of 2) 1980 Colonoscopy through age 75 09/21/201809/21, 09/21/2013, 09/21/2013 Mammogram for age 45-75 12/05/2019 12/05/19 19, 03/31/2017, 01/28/2016, Additional history exists Fecal testing non-DNA (FIT,FOBT,iFOBT) for age 45-75 11/15/2020 11/16/2019, 08/03/2011 COVID-19 vaccine series (3 - Moderna risk series) 11/21/2020 10/24/2020, 09/26/2020 Pap test for age 21-65 12/26/2023 9, 12/25/2018, 09/19/2014, Additional history exists BMI (ht and wt on same day) for age 18+ 03/21/2024 03/21/2023, 01/06/2023, 03/23/2022, Additional history exists Influenza for age 50-64 05/06/2024 06/24/20 20, 06/14/2019, 05/24/2018, Additional history exists Depression screening for age 12+ 10/20/2024 10/20/2023, 03/22/2023, 03/21/2023, Additional history exists Lipids for age 45-75 11/14/2025 11/14/2020, 10/23/2019, 11/29/2018, Additional history exists Tetanus booster 06/28/2027 06/28/2017, 07/07, 09/05/1999 Pneumococcal series for age 6-64 Aged Out 07/04/2014 No longer eligible based on patient's age to complete this topic Hepatitis C screening for age 18-79 Completed 03/31/2017 Tdap Completed 06/28/2017, 08/03/2011 Procedures Procedure Name Priority Date/Time Associated Diagnosis Comments LAB TRACKING EVENT Routine 11/09/2023 2: 17 PM ASSISTANT INFANT TEACHER PATH TISSUE EXAM Routine 11/09/2023 2:17 PM ASSISTANT INFANT TEACHER CBC WITH AUTO DIFFERENTIAL Routine 10/27/2023 7:49 AM ASSISTANT INFANT TEACHER Encounter for long-term (current) use of other medications Rheumatoid arthritis with rheumatoid factor 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 systems involvement (HC) CREATININE Routine 10/27/2023 7:49 AM ASSISTANT INFANT TEACHER Encounter for long-term (current) use of other medications Rheumatoid arthritis with rheumatoid factor 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 systems involvement (HC) CBC WITH AUTO DIFFERENTIAL Routine 10/27/2023 7:49 AM ASSISTANT INFANT TEACHER Encounter for long-term (current) use of other medications Rheumatoid arthritis with rheumatoid factor 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 systems involvement (HC) AST (SGOT) Routine 10/27/2023 7:49 AM ASSISTANT INFANT TEACHER Encounter for long-term (current) use of other medications Rheumatoid arthritis with rheumatoid factor 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 systems involvement (HC) ALT (SGPT) Routine 10/27/2023 7:49 AM ASSISTANT INFANT TEACHER Encounter for long-term (current) use of other medications Rheumatoid arthritis with rheumatoid factor 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 systems involvement (HC) ALBUMIN Routine 10/27/2023 7:49 AM ASSISTANT INFANT TEACHER Encounter for long-term (current) use of other medications Rheumatoid arthritis with rheumatoid factor 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 systems involvement (HC) LIPID PANEL W REFLEX MEASURED LDL Routine 11/14/2020 7:56 AM ASSISTANT INFANT TEACHER Hyperlipidemia, unspecified hyperlipidemia type OCCULT BLOOD IFOBT STOOL Routine 11/16/2019 10:00 AM CDT Screening for colon cancer RESIDENTIAL DIRECTOR THIN PREP PAP SCREEN IMAGED Routine 12/25/2018 5:05 PM CDT Pap smear for cervical cancer screening XR MAMMO BILAT SCREENING Routine 12/04/2018 11:12 AM CDT Visit for screening mammogram ANTI HCV Routine 03/31/2017 10:07 AM CDT Encounter for hepatitis C screening test for low risk patient from Last 3 Months or Most Recently Relevant to Health Maintenance Results * LAB TRACKING EVENT (11/09/2023 2:17 PM ASSISTANT INFANT TEACHER) Other (Other) Client Collect / Unknown 11/09/2023 2:17 PM ASSISTANT INFANT TEACHER 11/10/2023 1:31 PM ASSISTANT INFANT TEACHER Vira Pepe MD LAB BILL ONLY [facility] [address] [place] [address], * PATH TISSUE EXAM (11/09/2023 2:17 PM ASSISTANT INFANT TEACHER) Case Report Pathology Report ?Case: [id number] ? Authorizing Provider: ??Vira Pepe MD ??Collected: ? 11/09/2023 1417 ? Ordering Location: ? [facility] ?Received: ?11/10/2023 1542 ? Pathologist: ? Ed Marie MD ? Specimen: ?Right Leg ? 11/11/2023 4:09 PM [facility] Final Diagnosis A) SKIN, RIGHT LEG, BIOPSIES: 1. Cutaneous ulceration, see comment 2. No evidence of malignancy 11/11/2023 4:09 PM [facility] Comment A) The differential diagnosis includes the various causes of lower extremity ulceration including venous stasis, peripheral arterial disease, neuropathic, traumatic, infection, and coagulopathic. Within the appropriate clinical setting, if the aforementioned causes are ruled-out with appropriate studies and tissue cultures, these findings can be seen in a chronic ulcer related pyoderma gangrenosum. 11/11/2023 4:09 PM [facility] [employer] [facility] Clinical Information Patient with rheumatoid arthritis on methotrexate. Right lower leg with non-healing chronic wound since June 2023, assess for pyoderma gangrenosum. 11/11/2023 4:09 PM [facility] [employer] [facility] Gross Description A) Received in formalin, labeled with the patient's name and right leg, are 2 skin punch biopsies measuring 0.5 x 0.4 x 0.3 cm and 0.4 x 0.4 x 0.3 cm. ??The skin surfaces are flat smooth and brown-black. ??The specimens are differentially inked blue and green, sectioned and entirely submitted: 1. Skin punch #1, inked blue, bisected 2. Skin punch #2, inked green, bisected [facility] 11/10/2023 11/11/2023 4:09 PM [facility] Microscopic Description The final diagnosis is based on microscopic examination of appropriate sections of all specimens. A) Sections of skin reveal focal ulceration of the epidermis and dermis with associated reactive squamous epithelial change and mixed acute and chronic inflammation. No invasive malignancy is identified. There is underlying dermal scar in one sample with perivascular hemosiderin deposition. The presence of ??blue and green ink is confirmed on tissue sections. 11/11/2023 4:09 PM ASSISTANT INFANT TEACHER [facility] Additional Information Interpreted at [facility], Central Laboratory - [address] [facility] [address], [place] [address] 11/11/2023 4:09 PM ASSISTANT INFANT TEACHER [facility] Other (Right Leg) 11/09/2023 2:17 PM ASSISTANT INFANT TEACHER 11/10/2023 3:42 PM ASSISTANT INFANT TEACHER Vira Pepe MD PATHOLOGY/CYTOLO GY [facility] [address] [place] [address], * CBC WITH AUTO DIFFERENTIAL (10/27/2023 7:49 AM ASSISTANT INFANT TEACHER) WHITE BLOOD COUNT 4.8 4.5 - 11.0 thou/cu mm 10/27/2023 7:53 AM [facility] RED BLOOD COUNT 4.39 4.00 - 5.20 mil/cu mm 10/27/2023 7:53 AM [facility] HEMOGLOBIN 13.2 12.0 - 16.0 g/dL 10/27/2023 7:53 AM [facility] HEMATOCRIT 39.2 33.0 - 51.0 % 10/27/2023 7:53 AM [facility] MCV 89 80 - 100 fL 10/27/2023 7:53 AM [facility] MCH 30.1 26.0 - 34.0 pg 10/27/2023 7:53 AM [facility] MCHC 33.7 32.0 - 36.0 g/dL 10/27/2023 7:53 AM [facility] RDW 13.7 11.5 - 15.5 % 10/27/2023 7:53 AM [facility] PLATELET COUNT 270 140 - 440 thou/cu mm 10/27/2023 7:53 AM [facility] MPV 8.9 6.5 - 11.0 fL 10/27/2023 7:53 AM [facility] % NEUT 63.3 % 10/27/2023 7:53 AM [facility] % LYMPH 27.5 % 10/27/2023 7:53 AM [facility] % MONO 7.5 % 10/27/2023 7:53 AM [facility] % EOS 1.7 % 10/27/2023 7:53 AM [facility] % BASO 0.0 % 10/27/2023 7:53 AM [facility] ABSOLUTE NEUTROPHILS 3.1 1.7 - 7.0 thou/cu mm 10/27/2023 7:53 AM [facility] ABSOLUTE LYMPHOCYTES 1.3 0.9 - 2.9 thou/cu mm 10/27/2023 7:53 AM [facility] ABSOLUTE MONOCYTES 0.4 <0.9 thou/cu mm 10/27/2023 7:53 AM [facility] ABSOLUTE EOSINOPHILS 0.1 <0.5 thou/cu mm 10/27/2023 7:53 AM [facility] ABSOLUTE BASOPHILS 0.0 <0.3 thou/cu mm 10/27/2023 7:53 AM [facility] Blood BLOOD SPECIMEN / Unknown Venipuncture / Unknown 10/27/2023 7:49 AM ASSISTANT INFANT TEACHER 10/27/2023 7:49 AM [facility] - 10/27/2023 7:53 AM [facility] This testing was ordered by an outside provider. The provider who placed this order has reviewed and approved it for completion by the lab, but is not involved in this patient's care related to the ordering of this lab. The lab will provide the testing results for Albumin, ALT, AST, CDF and Creat, to the outside ordering provider, Sarah Kang at fax number [phone], for that provider to inform and arrange appropriate follow up with the patient. Linda Fritz MLT ([facility]).................... ??10/18/2023 ?? 10:15 AM Case Gao MD HEMATOLOGY Performing Organization Address City/[facility]/ZIP Co de Phone Number [facility] [address] [place] [address], [place] [phone] * (ABNORMAL) CREATININE (10/27/2023 7:49 AM ASSISTANT INFANT TEACHER) eGFR 85(L) >90 mL/min/1.7 3m2 10/27/2023 1:48 PM ASSISTANT INFANT TEACHER [facility] Comment:As of 2021, eG FR is calculated by the CKD-EPI creatinine equation without race adjustment. ??eGFR can be influenced by muscle mass, exercise, and diet. ??The reported eGFR is an estimation only and is only applicable if the renal function is stable. CREATININE 0.79 0.50 - 0.90 mg/dL 10/27/2023 1:48 PM ASSISTANT INFANT TEACHER [facility] Blood BLOOD SPECIMEN / Unknown Venipuncture / Unknown 10/27/2023 7:49 AM ASSISTANT INFANT TEACHER 10/27/2023 7:49 AM ASSISTANT INFANT TEACHER Case Gao MD CHEMISTRY Performing Organization Address [facility] Co de Phone Number [facility] [address] [address], [place] * ALT (SGPT) (10/27/2023 7:49 AM ASSISTANT INFANT TEACHER) ALT (SGPT) 21 10 - 35 IU/L 10/27/2023 1:48 PM ASSISTANT INFANT TEACHER [facility] Blood BLOOD SPECIMEN / Unknown Venipuncture / Unknown 10/27/2023 7:49 AM ASSISTANT INFANT TEACHER 10/27/2023 7:49 AM ASSISTANT INFANT TEACHER Case Gao MD CHEMISTRY Performing Organization Address City/[facility]/ZIP Co de Phone Number [facility] [address] [address], [place] * AST (SGOT) (10/27/2023 7:49 AM ASSISTANT INFANT TEACHER) AST (SGOT) 17 10 - 35 IU/L 10/27/2023 1:48 PM ASSISTANT INFANT TEACHER [facility] Blood BLOOD SPECIMEN / Unknown Venipuncture / Unknown 10/27/2023 7:49 AM ASSISTANT INFANT TEACHER 10/27/2023 7:49 AM ASSISTANT INFANT TEACHER Case Gao MD CHEMISTRY Performing Organization Address City/[facility]/ZIP Co de Phone Number [facility] [address] [place] [address], [place] * ALBUMIN (10/27/2023 7:49 AM ASSISTANT INFANT TEACHER) ALBUMIN 4.2 4.0 - 4.9 g/dL 10/27/2023 1:48 PM ASSISTANT INFANT TEACHER [facility] Blood BLOOD SPECIMEN / Unknown Venipuncture / Unknown 10/27/2023 7:49 AM ASSISTANT INFANT TEACHER 10/27/2023 7:49 AM ASSISTANT INFANT TEACHER Case Gao MD CHEMISTRY [facility] [address] [place] [address], [place] * LIPID PANEL W REFLEX MEASURED LDL (11/14/2020 7:56 AM ASSISTANT INFANT TEACHER) CHOLESTEROL,TOTAL 189 100 - 199 mg/dL 11/14/2020 2:34 PM ASSISTANT INFANT TEACHER [facility] TRIGLYCERIDES 60 <150 mg/dL 11/14/2020 2:34 PM ASSISTANT INFANT TEACHER [facility] HDL CHOLESTEROL 94 >40 mg/dL 2:34 PM ASSISTANT INFANT TEACHER [facility] NON-HDL CHOLESTEROL 95 <145 mg/dl 11/14/2020 2:34 PM ASSISTANT INFANT TEACHER [facility] CHOL/HDL RATIO 2.01 <4.50 11/14/2020 2:34 PM ASSISTANT INFANT TEACHER [facility] LDL CHOLESTEROL 83 <=130 mg/dL 11/14/2020 2:34 PM ASSISTANT INFANT TEACHER [facility] PROVIDER ORDERED STATUS RANDOM 11/14/2020 2:34 PM ASSISTANT INFANT TEACHER [facility] Blood BLOOD SPECIMEN / Unknown Venipuncture / Unknown 11/14/2020 7:56 AM ASSISTANT INFANT TEACHER 11/14/2020 7:56 AM ASSISTANT INFANT TEACHER Case Gao MD CHEMISTRY [facility] [address] [place] [address], * OCCULT BLOOD IFOBT STOOL (11/16/2019 10:00 AM CDT) STOOL BLOOD ,IFOBT Negative Negative 11/16/2019 1:26 PM CDT [facility] Stool STOOL SPECIMEN / Unknown Non-Blood / Unknown 11/16/2019 10:00 AM CDT 11/16/2019 1:17 PM CDT Case Gao MD LABORATORY Performing Organization Address City/[facility]/ZIP Co de Phone Number [facility] [address] [place] [address], * RESIDENTIAL DIRECTOR THIN PREP PAP SCREEN IMAGED (12/25/2018 5:05 PM CDT) Case Report Gynecologic Cytology Report ? Case: [id number] ? Authorizing Provider: ??Case Gao, ?? Collected: ? 12/25/2018 1705 ? MD ? Ordering Location: ? [facility] ?? Received: ?12/25/2018 1723 ? Clinic ? First Screen: ?Mitra Vallejo ? Specimen: ?RESIDENTIAL DIRECTOR ThinPrep Vial Screening, Cervical ? 01/04/2019 8:58 AM CDT [facility] INTERPRETATION/ RESULT NEGATIVE FOR INTRAEPITHELIAL LESION OR MALIGNANCY (NIL) (none) 01/04/2019 8:58 AM T [facility] EN[facility]OR[facility] IMEN ADEQUACY Satisfactory for evaluation Endocervical component present 01/04/2019 8:58 AM CDT [facility] HPV REQUEST HPV and PAP 01/04/2019 8:58 AM CDT [facility] Date of LMP unknown 01/04/2019 8:58 AM CDT [facility] EN[facility] Last Pap Date 09/19/14 01/04/2019 8:58 AM CDT [facility] Last Pap Result NIL 9 8:58 AM CDT [facility] Abnormal Pap or Melbeta Bx in last 5 years No 01/04/2019 8:58 AM CDT [facility] Menstrual Status Postmenopausal 01/04/2019 8:58 AM CDT [facility] Melbeta Bx Done Today No 01/04/2019 8:58 AM CDT [facility] Additional Information None given 01/04/2019 8:58 AM CDT [facility] Automated Review Successful 01/04/2019 8:58 AM CDT [facility] Comment:Specimen processed s uccessfully by automated director of physical education device, [employer], [employer] ANCILLARY TESTING RESIDENTIAL DIRECTOR HPV Ordered, Please see separate report 01/04/2019 8:58 AM CDT [facility] Note The pap test is a screening technique, not a diagnostic procedure. ??It is used primarily to screen for squamous cancers and precursor lesions. ??Published studies have shown that it is subject to both false negative and false positive results. ??The pap test should not be used as the sole means to diagnose or exclude pre-malignant and malignant lesions. Cytology is screened and interpreted at [facility] - [address], [place] [address] and [facility] - [address]; [place] [address] and [facility] - [address]; [place] [address] and [facility] [address]; [place] [address] 01/04/2019 8:58 AM CDT [facility] Other (Cervical) Non-Blood / Unknown 12/25/2018 5:05 PM CDT 12/25/2018 5:23 PM CDT Case Gao MD PATHOLOGY/CYTO LOGY [facility] [address] [place] [address], [place] * XR MAMMO BILAT SCREENING (12/04/2018 11:12 AM CDT) Anatomical Region Laterality Modality BREASTS, Breast Left, Breast Right Bilateral Mammography Impressions 12/04/2018 12:26 PM CDT ??There is no radiographic evidence for malignancy. ??Recommend annual mammograms. A lay language report of this examination will be provided to the patient. MAMMOGRAM ASSESSMENT: ??ACR 2 Benign Narrative 12/04/2018 12:26 PM CDT XR MAMMO BILAT SCREENING [[id number]] CLINICAL HISTORY: ??This is an asymptomatic 58 y.o. patient. INDICATION FOR EXAM: Mammogram Screening. TECHNIQUE: CC & MLO views were obtained. ??This digital study was evaluated with the assistance of Computer-Aided Detection. COMPARISON FILMS: Yes 03/31/10 [facility] 01/28/16 [facility] FINDINGS: ??Mammographically, the breast tissue has scattered fibroglandular densities. ??No suspicious masses or microcalcifications. ?? Benign appearing calcifications within both breasts, Benign appearing mass(es) within right breast and Benign appearing asymmetry within right breast. Case Gao MD MAMMO * ANTI HCV (03/31/2017 10:07 AM CDT) HEPATITIS C ANTIBODY Non-Reacti ve Non-Reacti ve 03/31/2017 4:31 PM CDT [facility] Blood BLOOD SPECIMEN / Unknown Venipuncture / Unknown 03/31/2017 10:07 AM CDT 03/31/2017 10:07 AM CDT Narrative [facility] - 03/31/2017 4:31 PM CDT Antibodies to HCV not detected; does not exclude the possibility of exposure to HCV. Case Gao MD SEND OUTS [facility] [address] [place] [address], from Last 3 Months or Most Recently Relevant to Health Maintenance Advance Directives * Full Code (Latest Code Status on File) Date Activated Date Inactivated Comments 02/26/2022 3:57 AM 02/27/2022 3:25 PM Question Answer Comments Code Status Discussion: Reviewed Preferences * Full Code Date Activated Date Inactivated Comments 06/23/2012 5:55 PM 06/24/2012 4:41 PM Care Teams Gaggerman Relationship Specialty Start Date End Date Case Gao MD [address] [place] [address] PCP - General 11/28/06
--- OUTSIDE RECORDS SUMMARY | 2023-12-14 13:49 | XMS_ITS | Continuity of Care Document ---
Author Name Unknown Organization [facility] Address [address] [place] [address] Phone Care Team Providers Care Instructor Trainer Canine Service Name Role Phone Sarah Rowan DO Unavailable Unavailab le Allergies, Adverse Reactions, Alerts Substance Reaction Status Criticality aspirin Active No Information Medications Medication Instructions Dosage Effective Dates (start - stop) Status Comments FOLIC ACID TABS 1MG TAKE 1 TABLET DAILY - Active methotrexate sodium 2.5 mg tablet TAKE 10 TABLETS (25MG) BY ORAL ROUTE ONCE WEEKLY - Active HYDROXYCHLOROQUINE 200 MG TAB TAKE 2 TABLETS BY MOUTH EVERY DAY - Active PREDNISONE 5 MG TABLET TAKE 1 & 1/2 TABLETS DAILY FOR 2 WEEKS, THEN 1 TABLET DAILY. - Active lisinopril 20 mg-hydrochlorothiazide 12.5 mg tablet take 1 tablet by oral route every day 1 tablet - Active Keppra 500 mg tablet take 2 tablet by oral route 2 times every day 1000 MG - Active hydroxyzine HCl 25 mg tablet take 1 tablet by oral route 4 times every day as needed as needed 25 MG - Active venlafaxine 75 mg tablet take 3 tablets twice daily - Active folic acid 1 mg tablet TAKE 1 TABLET DAILY - No Longer Active Procedures Procedure Date Office/Outpatient Visit, Est Routine Venipuncture Rbc Sed Rate, Automated Assay Of Serum Albumin Assay Of Creatinine [...] [facility] , [address], [place], [address], [place] tel:[phone] [facility] No Information 4 Philippe Smith. [address], [place], [address], [place]. tel:[phone] [facility] , [address], [place], [address], [place] tel:[phone] [facility] , No Information 4 Philippe Smith. [address], [place], [address], [place]. tel:[phone] Office/Outpa tient Visit, Est [facility] , [address], [place], [address], [place] tel:[phone] [facility] , Rheumatoid arthritis with rheumatoid factor 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 systems involvementO ther superintendent container terminal (current) drug therapy 4 Philippe Smith. [address], [place], [address], [place]. tel:[phone] Referring Provider: Sarah Epperson, [address], [place], [address]. tel:[phone] [facility] , [address], [place], [address], [place] tel:[phone] [facility] , No Information 3 Skemp Pearl Smith. [address], [place], [address], [place]. tel:[phone] [facility] , [address], [place], [address], [place] tel:[phone] [facility] , No Information 3 Skemp Pearl Smith. [address], [place], [address], [place]. tel:[phone] Office/Outpa tient Visit, Est [facility] , [address], [place], [address], [place] tel:[phone] [facility] , Rheumatoid arthritis (chief complaint)Mo nitor Chronic High Risk Meds (chief complaint) RA w/ rheumatoid factor of multiple sites w/o organ involvementO ther custodial (current) drug therapyOther dorsalgia 3 María Denis. [facility] [address], [place], [address], [place]. tel:[phone] , [facility] [address], [place], [address].Refer ring Provider: Adeel Daniel W, [facility] [address], [place], [address]. tel:[phone] [facility] , [address], [place], [address], [place] tel:[phone] [facility] No Information 2 María Denis. [facility] [address], [place], [address], [place]. tel:[phone] Office/Outpa tient Visit, Est [facility] , [address], [place], [address], [place] tel:[phone] [facility] , Rheumatoid arthritis (chief complaint)Mo nitor Chronic High Risk Meds (chief complaint) RA w/ rheumatoid factor of multiple sites w/o organ involvementO ther custodial (current) drug therapy 2 María Denis. [facility] [address], [place], [address], [place]. tel:[phone] , [facility] [address], [place], [address].Refer ring Provider: Adeel Tang, [facility] [address], [place], [address]. tel:[phone] [facility] , [address], [place], [address], [place] tel:[phone] [facility] , No Information 2 María Denis. [facility] [address], [place], [address], [place]. tel:[phone] Referring Provider: Adeel Tang, [facility] [address], [place], [address]. tel:[phone] Office/Outpa tient Visit, Est [facility] , [address], [place], [address], [place] tel:[phone] [facility] , Rheumatoid arthritis (chief complaint)Mo nitor Chronic High Risk Meds (chief complaint) RA w/ rheumatoid factor of multiple sites w/o organ involvementO ther superintendent container terminal (current) drug therapy 1 María Denis. [facility] [address], [place], [address], [place]. tel:[phone] , [address], [place], [address].Refer ring Provider: Adeel Tang, [facility] [address], [place], [address]. tel:[phone] Office/Outpa tient Visit, Est [facility] , [address], [place], [address], [place] tel:[phone] [facility] , Rheumatoid arthritis (chief complaint)Mo nitor Chronic High Risk Meds (chief complaint) AnxietyRA w/ rheumatoid factor of multiple sites w/o organ involvementO ther custodial (current) drug therapy 0 María Denis. [facility] [address], [place], [address], [place]. tel:[phone] , [address], [place], [address].Refer ring Provider: Adeel Tang, [facility] [address], [place], [address]. tel:[phone] Office/Outpa tient Visit, Est [facility] , [address], [place], [address], [place] tel:[phone] [facility] , Rheumatoid arthritis (chief complaint)Mo nitor Chronic High Risk Meds (chief complaint) AnxietyRA w/ rheumatoid factor of multiple sites w/o organ involvementO ther superintendent container terminal (current) drug therapy 0 María Denis. [facility] [address], [place], [address], [place]. tel:[phone] , [address], [place], [address].Refer ring Provider: Adeel Tang, [facility] [address], [place], [address]. tel:[phone] Office/Outpa tient Visit, Est [facility] , [address], [place], [address], [place] tel:[phone] [facility] , Rheumatoid arthritis (chief complaint)Mo nitor Chronic High Risk Meds (chief complaint) AnxietyRA w/ rheumatoid factor of multiple sites w/o organ involvementO ther custodial (current) drug therapy María Denis. [facility] [address], [place], [address], [place]. tel:[phone] , [facility] [address] [place] [address] [address], [place], [address].Refer ring Provider: Adeel Tang, [facility] [address], [place], [address]. tel:[phone] Office/Outpa tient Visit, Est [facility] , [address], [place], [address], [place] tel:[phone] [facility] , Rheumatoid arthritis (chief complaint)Mo nitor Chronic High Risk Meds (chief complaint) AnxietyRA w/ rheumatoid factor of multiple sites w/o organ involvementO ther custodial (current) drug therapy 8 María Denis. [facility] [address], [place], [address], [place]. tel:[phone] , [address], [place], [address].Refer ring Provider: Adeel Tang, [facility] [address], [place], [address]. tel:[phone] Office/Outpa tient Visit, Est [facility] , [address], [place], [address], [place] tel:[phone] [facility] , Rheumatoid arthritis (chief complaint)Mo nitor Chronic High Risk Meds (chief complaint) RA w/ rheumatoid factor of multiple sites w/o organ involvementO ther superintendent container terminal (current) drug therapyAnxie ty 8 María Denis. [facility] [address], [place], [address], [place]. tel:[phone] Specialist: Tim Carrasquillo, [address], [place], [address]. tel:[phone] ring Provider: Adeel Tang, [facility] [address], [place], [address]. tel:[phone] Office/Outpa tient Visit, Est [facility] , [address], [place], [address], [place] tel:[phone] [facility] , Rheumatoid arthritis (chief complaint)Mo nitor Chronic High Risk Meds (chief complaint) RA w/ rheumatoid factor of multiple sites w/o organ involvementO ther superintendent container terminal (current) drug therapy 7 María Denis. [facility] [address], [place], [address], [place]. tel:[phone] Specialist: Tim Carrasquillo, [address], [place], [address]. tel:[phone] ring Provider: Adeel Tang, [facility] [address], [place], [address]. tel:[phone] [facility] , [address], [place], [address], [place] tel:[phone] [facility] , Rheumatoid arthritis (chief complaint)Mo nitor Chronic High Risk Meds (chief complaint) RA w/ rheumatoid factor of multiple sites w/o organ involvementO ther superintendent container terminal (current) drug therapyPain in right shoulder Neto-0 9201 7 María Denis. [facility] [address], [place], [address], [place]. tel:[phone] Specialist: Tim Carrasquillo, [facility] [address] [place] [address] [address], [place], [address]. tel:[phone] ring Provider: Adeel Tang, [facility] [address], [place], [address]. tel:[phone] Office/Outpa tient Visit, Est [facility] , [address], [place], [address], [place] tel:[phone] [facility] , Rheumatoid arthritis (chief complaint)Mo nitor Chronic High Risk Meds (chief complaint) RA w/ rheumatoid factor of multiple sites w/o organ involvementO ther superintendent container terminal (current) drug therapy Feb-10 09-201 6 María Denis. [facility] [address], [place], [address], [place]. tel:[phone] Specialist: Tim Carrasquillo, [address], [place], [address]. tel:[phone] ring Provider: Adeel Tang, [facility] [address], [place], [address]. tel:[phone] Office/Outpa tient Visit, Est [facility] , [address], [place], [address], [place] tel:[phone] [facility] , Rheumatoid arthritis (chief complaint)Mo nitor Chronic High Risk Meds (chief complaint) RA w/ rheumatoid factor of multiple sites w/o organ involvementO ther custodial (current) drug therapyShoul velasquez joint pain María Denis. [facility] [address], [place], [address], [place]. tel:[phone] Specialist: Tim Carrasquillo, [facility] [address] [place] [address] [address], [place], [address]. tel:[phone] ring Provider: Adeel Tang, [facility] [address], [place], [address]. tel:[phone] Office/Outpa tient Visit, Est [facility] , [address], [place], [address], [place] tel:[phone] [facility] , Rheumatoid arthritis (chief complaint)Mo nitor Chronic High Risk Meds (chief complaint) Rheumatoid arthritisThe rapeutic Drug MonitoringFi nger joint contracture María Denis. [facility] [address], [place], [address], [place]. tel:[phone] Specialist: Tim Carrasquillo, [facility] [address] [place] [address] [address], [place], [address]. tel:[phone] ring Provider: Adeel Tang, [facility] [address], [place], [address]. tel:[phone] Office/Outpa tient Visit, Est [facility] , [address], [place], [address], [place] tel:[phone] [facility] , Rheumatoid Arthritis (chief complaint) Rheumatoid ArthritisThe rapeutic Drug MonitoringPa in in joint involving lower leg Aug- 4 María Denis. [facility] [address], [place], [address], [place]. tel:[phone] Specialist: Tim Carrasquillo, [facility] [address], [place], [address]. tel:[phone] ring Provider: Adeel Tang, [facility] [address], [place], [address]. tel:[phone] Office/Outpa tient Visit, Est [facility] , [address], [place], [address], [place] tel:[phone] [facility] , Rheumatoid Arthritis (chief complaint) Rheumatoid ArthritisThe rapeutic Drug MonitoringPa in in joint involving lower legPain in joint involving shoulder regionUnspec ified disorder of skin and subcutaneous tissue 4 María Denis. [facility] [address], [place], [address], [place]. tel:[phone] Specialist: Tim Carrasquillo, [facility] [address] [place] [address] [address], [place], [address]. tel:[phone] ring Provider: Adeel Tang, [facility] [address], [place], [address]. tel:[phone] Office/Outpa tient Visit, Est [facility] , [address], [place], [address], [place] tel:[phone] [facility] , Rheumatoid Arthritis (chief complaint) Rheumatoid ArthritisThe rapeutic Drug MonitoringPa in in joint involving shoulder region 4 María Denis. [facility] [address], [place], [address], [place]. tel:[phone] Specialist: Tim Carrasquillo, [facility] [address] [place] [address] [address], [place], [address]. tel:[phone] ring Provider: Adeel Tang, [facility] [address], [place], [address]. tel:[phone] Office/Outpa tient Visit, Est [facility] , [address], [place], [address], [place] tel:[phone] [facility] , Rheumatoid Arthritis (chief complaint) Rheumatoid ArthritisThe rapeutic Drug MonitoringLO NG-TERM (CURRENT) USE OF STEROIDS 3 María Denis. [facility] [address], [place], [address], [place]. tel:[phone] Specialist: Tim Carrasquillo, [facility] [address] [place] [address] [address], [place], [address]. tel:[phone] Provider: Adeel Tang, [facility] [address], [place], [address]. tel:[phone] Office/Outpa tient Visit, Est [facility] , [address], [place], [address], [place] tel:[phone] [facility] , Rheumatoid Arthritis (chief complaint) Rheumatoid ArthritisThe rapeutic Drug MonitoringLO NG-TERM (CURRENT) USE OF STEROIDSCoug h 3 María Adeel. [facility] [address], [place], [address], [place]. tel:[phone] Specialist: Tim Carrasquillo, [facility] [address] [place] [address] [address], [place], [address]. tel:[phone] ring Provider: Adeel Tang, [facility] [address], [place], [address]. tel:[phone] Office/Outpa tient Visit, Est [facility] , [address], [place], [address], [place] tel:[phone] [facility] , Rheumatoid Arthritis (chief complaint) Rheumatoid ArthritisThe rapeutic Drug MonitoringLO NG-TERM (CURRENT) USE OF STEROIDS 3 María Denis. [facility] [address], [place], [address], [place]. tel:[phone] Specialist: Tim Carrasquillo, [facility] [address] [place] [address] [address], [place], [address]. tel:[phone] ring Provider: Adeel Tang, [facility] [address], [place], [address]. tel:[phone] Office/Outpa tient Visit, Est [facility] , [address], [place], [address], [place] tel:[phone] [facility] , Rheumatoid Arthritis (chief complaint) Rheumatoid ArthritisThe rapeutic Drug MonitoringUl cer of ankle 3 María Denis. [facility] [address], [place], [address], [place]. tel:[phone] Specialist: Tim Carrasquillo, [address], [place], [address]. tel:[phone] ring Provider: Adeel Tang, [facility] [address], [place], [address]. tel:[phone] Office/Outpa tient Visit, Est [facility] , [address], [place], [address], [place] tel:[phone] [facility] , Rheumatoid Arthritis (chief complaint) Rheumatoid ArthritisThe rapeutic Drug MonitoringLO NG-TERM (CURRENT) USE OF STEROIDS Dec-0 7-201 2 María Adeel. [facility] [address], [place], [address], [place]. tel:[phone] Specialist: Tim Carrasquillo, [facility] [address] [place] [address] [address], [place], [address]. tel:[phone] ring Provider: Adeel Tang, [facility] [address], [place], [address]. tel:[phone] Office/Outpa tient Visit, Est [facility] , [address], [place], [address], [place] tel:[phone] [facility] , Rheumatoid Arthritis (chief complaint) Rheumatoid ArthritisLON G-TERM (CURRENT) USE OF STEROIDS Nov-0 2-201 2 María Adeel. [facility] [address], [place], [address], [place]. tel:[phone] Specialist: Tim Carrasquillo, [facility] [address], [place], [address]. tel:[phone] ring Provider: Adeel Tang, [facility] [address], [place], [address]. tel:[phone] Office/Outpa tient Visit, New [facility] , [address], [place], [address], [place] tel:[phone] [facility] , Pulmonary infiltrates (chief complaint) Unspecified inflammatory polyarthropa thyLONG-TERM (CURRENT) USE OF STEROIDS 2 María Denis. [facility] [address], [place], [address], [place]. tel:[phone] Specialist: Tim Carrasquillo, [facility] [address], [place], [address]. tel:[phone] ring Provider: Adeel Tang, [facility] [address], [place], [address]. tel:[phone] Family History Family Member Type Diagnosis Age At Onset Sister Problem (finding) malignant neoplasm of o vary Father Problem (finding) cancer of colon Immunizations Vaccine Date Status Comments COVID-19 Fuze administered S ource: Other Provider Payers Payer name Insurance type Covered libertarian ID Authorpatt rogers(s) [facility] [id number] Social History Type Description Quantity Date Captured [...] safety monitoring ophthalmologic evaluation. Related to Other superintendent container terminal (current) drug therapy The patient will hav e CBC, Cr, transaminases and albumin performed every 3 months.Pursue annual safety monitoring ophthalmologic evaluation. Related to Other superintendent container terminal (current) drug therapy Continue hydroxychlo roquine 400 [...] safety monitoring ophthalmologic evaluation. Related to Other superintendent container terminal (current) drug therapy Continue hydroxychlo roquine 400 [...] safety monitoring ophthalmologic evaluation. Related to Other custodial (current) drug therapy Continue input as ne [...] performed every 3 months. Related to Other custodial (current) drug therapy Continue current ant i-rheumatic medications unchanged.I will consider PFT and potential update of chest imaging. Related to RA w/ rheumatoid factor of multiple sites w/o organ involvement Continue input as ne eded with her primary care provider or psychologist/psychiatrist. Related to Anxiety The patient will hav e CBC, Cr, transaminases and albumin performed every 3 months. Related to Other superintendent container terminal (current) drug therapy I again urged ruel [...] performed every 3 months. Related to Other custodial (current) drug therapy I urged patient to u pdate her evaluation with her primary care provider or a psychologist/psychiatrist. Related to Anxiety The patient will hav e CBC, Cr, transaminases and albumin performed every 3 months. Related to Other custodial (current) drug therapy Continue current ant i-rheumatic medications unchanged.I will strongly consider PFT and potential update of chest imaging.The patient may be moving to [facility] [place] if her gets the new job that they anticipate. 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 Related to Other custodial (current) drug therapy Continue current ant i-rheumatic medications unchanged.The patient may be moving to [facility] [place] if her gets the new job [...] performed every 3 months. Related to Other custodial (current) drug therapy The patient will hav e CBC, Cr, transaminases and albumin performed every 3 months. Related to Other superintendent container terminal (current) drug therapy Continue current ant i-rheumatic [...] performed every 2-3 months. Related to Other custodial (current) drug therapy Continue current ant i-rheumatic [...]
--- OUTSIDE RECORDS SUMMARY | 2023-12-14 13:49 | XMS_ITS | Referral Summary ---
Author Name Unknown Organization [facility] Address [address] [place] [id number] Care Team Providers Care Bleacher Lard Name Role Phone Case Gao Primary Care Provider [phone] Allergies Active Allergy Reactions Criticality Noted Date [...] Plan Total Joint Replacement Hip Pathway No Nito Octavia J Medical Devices Implanted Type Area Genetics Teacher Device Identifier Shelf Expiration Date Model / Serial / Lot Insert Actb 42mm 28mm E Hip X3 Adm Strl Lf Mdm 7236-2-848 - [id number] Implanted:Qty: 1 on 04/08/2023 by Fazal Ramirez MD at [facility] Metallic Hardware/An chor Left: Hip [employer] [id number] 10/07/2027 7236-2-8 48 / / [id number] Trident Ii Tritanium Clusterhole 52e - [id number] Implanted:Qty: 1 on 03/25/2023 by Cj Chen MD at [facility] Total Joint Component/I nsert Left: Hip [employer] 12/29/2027 702-04-5 2E / / [id number] A Insert El 36mm 0deg X3 723-00-36e - [id number] Implanted:Qty: 1 on 03/25/2023 by Cj Chen MD at [facility] Total Joint Component/I nsert Left: Hip [employer] 12/24/2027 723-00-3 6E / / [id number] Imp Stem Fem Rstrtn Mod Bowed Conical 42b102km 6276-7-219 - [id number] Implanted:Qty: 1 on 04/08/2023 by Fazal Ramirez MD at [facility] Total Joint Component/I nsert Left: Hip [employer] [id number] 02/14/2027 6276-7-2 19 / / [id number] Imp Insert Acet Strk Mdm Cocr Hip 0deg 42mm Sz E 626-00-42e - [id number] Implanted:Qty: 1 on 04/08/2023 by Fazal Ramirez MD at [facility] Total Joint Component/I nsert Left: Hip [employer] [id number] 01/13/2028 626-00-4 2E / / [id number] Imp Stem Fem Mod Rev Hip Prox Body/Traphill 19mm +10 6276-1-119 - [id number] Implanted:Qty: 1 on 04/08/2023 by Fazal Ramirez MD at [facility] Total Joint Component/I nsert Left: Hip [employer] [id number] 08/15/2024 6276-1-1 19 / / [id number] Imp Head Femoral Strk Biolox Delta Ceramic 28mm +4mm - [id number] Implanted:Qty: 1 on 04/08/2023 by Fazal Ramirez MD at [facility] Total Joint Component/I nsert Left: Hip [employer] [id number] 10/31/2027 6570-0-2 28 / / [id number] Fibertape Cerclage, 2mm, 48 Implanted:Qty: 3 on 04/08/2023 by Fazal Ramirez MD at [facility] Left: Hip [employer] 06/04/2027 AR-7268 / / [id number] Fibertape Cerclage, 2mm, 48 Implanted:Qty: 1 on 04/08/2023 by Fazal Ramirez MD at [facility] Left: Hip [employer] 01/03/2028 AR-7268 / [id number] / Fibertape Cerclage, 2mm, 48 Implanted:Qty: 1 on 04/08/2023 by Fazal Ramirez MD at [facility] Left: Hip [employer] 11/03/2027 AR-7268 / / [id number] Explanted Type Area Genetics Teacher Device Identifier Shelf Expiration Date Model / Serial / Lot Imp Stem Femoral Hip Strk Accolade Ii 132deg Sz 5 2460-5441 - [id number] Implanted:Qty: 1 on 03/25/2023 by Cj Chen MD at [facility] Explanted:Qty: 1 on 04/08/2023 by Fazal Ramirez MD at [facility] Total Joint Component /Insert Left: Hip [employer] 03/03/2027 0222-1759 / / [id number] Imp Head Femoral Strk Biolox Delta Ceramic 36mm +2.5mm - [id number] Implanted:Qty: 1 on 03/25/2023 by Cj Chen MD at [facility] Explanted:Qty: 1 on 04/08/2023 by Fazal Ramirez MD at [facility] Total Joint Component /Insert Left: Hip [employer] 12/07/2027 6570-0-536 / / [id number] 6.5 Mm Cannulated Screws, 16mm Thread Length 80mm Implanted:Qty: 3 on 01/25/2021 by Cj Chen MD at [facility] Explanted:Qty: 3 on 03/25/2023 by Cj Chen MD at [facility] Left: Hip SYNTHES 408.411 24 JAN 2021 Titanium Washer, 13.0 Mm Implanted:Qty: 3 on 01/25/2021 by Cj Chen MD at [facility] Explanted:Qty: 3 on 03/25/2023 by Cj Chen MD at [facility] Left: Hip SYNTHES 419.99 24 JAN 2021 8002 Procedures Procedure Name Priority Date/Time Associated Diagnosis Comments BASIC METABOLIC PANEL Routine 04/10/2023 7:07 AM CDT COLONOSCOPY - HIM SCAN 10/25/2022 12:00 AM TRANSCRIPT EVALUATOR from Last 3 Months or Most Recently [...] MD LAB - BLOOD ORDERABL ES LABORATORY [facility] [address] Lab (1st floor, no room number) [place] [address], [facility] [phone] * COLONOSCOPY - HIM SCAN (10/25/2022 12:00 AM TRANSCRIPT EVALUATOR) 10/25/2022 Provider Outside PROCEDURES from Last 3 Months or Most Recently Relevant to Health Maintenance Additional Health Concerns Active Problems Noted Date Diagnosed Date Total Joint Replacement Hip Pathway 03/15/2023 Advance Directives For more information, please contact: [phone] * Full Code (Latest Code Status on [...] Comments Code status determined by: Discussion with patie nt/ legal decision maker * Full Code Date Activated Date Inactivated Comments 04/07/2023 3:16 PM 04/07/2023 7:32 PM All basic and advanced life-sustaining interventions are performed as appropriate Question Answer Comments Code status determined by: Discussion with patie nt/ legal decision maker * Full Code Date Activated Date Inactivated Comments 03/25/2023 10:44 AM 03/26/2023 2:07 PM All basic a nd advanced life-sustaining interventions are performed as appropriate Question Answer Comments Code status determined by: Discussion with patie nt/ legal decision maker Care Teams Bleacher Lard Relationship Specialty Start Date End Date Case Gao [address] [place] [address] PCP - General Family Medicine 01/25/21
== END 2023-12-14 13:48 | disposition home or self-care (01) ==
LOC: WOUND 13:47
PROVIDERS: PCP Family Medicine; Visit Provider Physician Assistant
DX: I87.2 Venous insufficiency (chronic) (peripheral) (principal); L97.812 Non-pressure chronic ulcer of other part of right lower leg with fat layer exposed; Z79.60 Long term (current) use of unspecified immunomodulators and immunosuppressants
CPT/HCPCS: 97597

== ENCOUNTER 2023-12-21 13:53 | Outpatient (CLI) | payer BC, SELFPAY ==
--- OUTSIDE RECORDS SUMMARY | 2023-12-21 13:58 | XMS_ITS | Clinical Summary ---
Author Name Unknown Organization [facility] Address [address] [address] Phone Care Team Providers Care Amphibious Operations Officer Name Role Phone Unavailable Primary Care Provider Unavailabl e Allergies Active Allergy Reactions Criticality Noted Date Comments Aspirin Anaphylaxis,Swelling High 01/03/2001 Medications No known medications Social History Tobacco Use Types Packs/Day Years Used Date Smoking Tobacco: Never Assessed IP Custom IPV Answer Date Recorded Do you feel UNSAFE in any of your personal relationships with your family members or any other acquaintances? No 2022 Sex and Gender Information Value Date Recorded [...] HPV Testing 1961 MAMMO,SCREEN 1961 Sigmoidoscopy 1961 PERTUSSIS (Standing Order) 1980 TETANUS (Standing Order) 1980 Shingrix (Zoster recombinant ) vaccine (Standing Order) (1 of 2) 2011 RSV Vaccination (60+ yrs) (Abrysvo/Arexvy) (1 - 1-dose 60+ series) 2021 COVID-19 Vaccine ( - 2022-2 4 season) 2023 Influenza Vaccine Seasonal (Standing Order) (#1) 2023 [...]
--- OUTSIDE RECORDS SUMMARY | 2023-12-21 13:58 | XMS_ITS | Clinical Summary ---
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 10/14/2008 01/27/2021 Obesity, unspecified 11/26/2006 014 Encounters Date Type Department Care Team Description 11/15/2023 Telephone [facility] [address] [place] [address] Case Gao MD Questions 11/10/2023 Lab Requisition [facility] [phone] Vira Pepe MD 11/03/2023 Telephone [facility] [address] [place] [address] Case Gao MD Questions (UPDATE ON DISABILITY FORMS) 10/27/2023 7:45 AM GEOMETRY TUTOR Orders Only [facility] [address] [place] [address] Lab, [place] [facility]; Outside Order (Ordered by Sarah Paez... 10/27/2023 Travel 10/20/2023 4:10 PM GEOMETRY TUTOR Office Visit [facility] [address] [place] [address] Case Gao MD Medication Management 10/20/2023 Travel 10/18/2023 Orders Only [address] [place] [address] Case Gao MD Outside Order (Ordered by Sarha Hilton) 10/17/2023 Telephone [facility] [address] [place] [address] Case Gao MD Medication Management (venlafaxine (EFFEXOR) [...] Comments Blood Pressure 116/76 10/20/2023 3:51 PM GEOMETRY TUTOR Pulse 74 10/20/2023 3:51 PM GEOMETRY TUTOR Temperature 36.7 ??C (98.1 ??F) 04/13/2023 7:48 AM CD T Respiratory Rate 16 02/27/2022 11:58 AM CDT Oxygen Saturation 100% 10/20/2023 3:51 PM GEOMETRY TUTOR Inhaled Oxygen Concentration - - Weight 92.1 kg (203 lb) 10/20/2023 3:51 PM GEOMETRY TUTOR Height 169.4 cm (5' 6.69) 03/21/2023 9:18 AM CD T Body Mass Index 32.09 03/21/2023 9:18 AM CDT Plan of Treatment Upcoming Encounters Date Type Department Care Team (Late st Contact Info) Description 01/13/2024 10:55 AM CDT Office Visit [facility] [address] [place] [address] Case Gao MD [address] [place] [address] Health Maintenance Due Date Last Done Comments [...] TRACKING EVENT Routine 11/09/2023 2: 17 PM GEOMETRY TUTOR PATH TISSUE EXAM Routine 11/09/2023 2:17 PM GEOMETRY TUTOR CBC WITH AUTO DIFFERENTIAL Routine 10/27/2023 7:49 AM GEOMETRY TUTOR Encounter for long-term (current) use of other medications Rheumatoid arthritis with rheumatoid factor 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 systems involvement (HC) CREATININE Routine 10/27/2023 7:49 AM GEOMETRY TUTOR Encounter for long-term (current) use of other medications Rheumatoid arthritis with rheumatoid factor 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 systems involvement (HC) CBC WITH AUTO DIFFERENTIAL Routine 10/27/2023 7:49 AM GEOMETRY TUTOR Encounter for long-term (current) use of other medications Rheumatoid arthritis with rheumatoid factor 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 systems involvement (HC) AST (SGOT) Routine 10/27/2023 7:49 AM GEOMETRY TUTOR Encounter for long-term (current) use of other medications Rheumatoid arthritis with rheumatoid factor 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 systems involvement (HC) ALT (SGPT) Routine 10/27/2023 7:49 AM GEOMETRY TUTOR Encounter for long-term (current) use of other medications Rheumatoid arthritis with rheumatoid factor 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 systems involvement (HC) ALBUMIN Routine 10/27/2023 7:49 AM GEOMETRY TUTOR Encounter for long-term (current) use of other medications Rheumatoid arthritis with rheumatoid factor 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 systems involvement (HC) LIPID PANEL W REFLEX MEASURED LDL Routine 11/14/2020 7:56 AM GEOMETRY TUTOR Hyperlipidemia, unspecified hyperlipidemia type OCCULT BLOOD IFOBT STOOL Routine 11/16/2019 10:00 AM CDT Screening for colon cancer HANDER IN THIN PREP PAP SCREEN IMAGED Routine 12/25/2018 [...] * LAB TRACKING EVENT (11/09/2023 2:17 PM GEOMETRY TUTOR) Other (Other) Client Collect / Unknown 11/09/2023 2:17 PM GEOMETRY TUTOR 11/10/2023 1:31 PM GEOMETRY TUTOR Vira Pepe MD LAB BILL ONLY [facility] [address] [place] [address], * PATH TISSUE EXAM (11/09/2023 2:17 PM GEOMETRY TUTOR) Case Report Pathology Report ?Case: [id number] ? Authorizing Provider: ??Vira Pepe MD ??Collected: ? 11/09/2023 1417 ? Ordering Location: ? [facility] ?Received: ?11/10/2023 1542 ? Pathologist: ? Ed Marie MD ? Specimen: ?Right Leg ? 11/11/2023 4:09 PM [facility] Final Diagnosis A) SKIN, RIGHT LEG, BIOPSIES: 1. Cutaneous ulceration, see comment 2. No evidence of malignancy 11/11/2023 4:09 PM [facility] Comment A) The differential diagnosis includes the various causes of lower extremity ulceration including venous stasis, peripheral arterial disease, neuropathic, traumatic, infection, and coagulopathic. Within the appropriate clinical setting, if the aforementioned causes are ruled-out with appropriate studies and tissue cultures, these findings can be seen in a chronic ulcer related pyoderma gangrenosum. 11/11/2023 4:09 PM [facility] [employer] [facility] Clinical Information Patient with rheumatoid arthritis on methotrexate. Right lower leg with non-healing chronic wound since June 2023, assess for pyoderma gangrenosum. 11/11/2023 4:09 PM [facility] [employer] [facility] Gross Description A) Received in [...] 2. Skin punch #2, inked green, bisected [facility] 11/10/2023 11/11/2023 4:09 PM [facility] Microscopic Description The final diagnosis [...] confirmed on tissue sections. 11/11/2023 4:09 PM GEOMETRY TUTOR [facility] Additional Information Interpreted at [facility], Central Laboratory - [address] [facility] [address] [address] 11/11/2023 4:09 PM GEOMETRY TUTOR [facility] Other (Right Leg) 11/09/2023 2:17 PM GEOMETRY TUTOR 11/10/2023 3:42 PM GEOMETRY TUTOR Vira Pepe MD PATHOLOGY/CYTOLO GY [facility] [address] [place] [address], * CBC WITH AUTO DIFFERENTIAL (10/27/2023 7:49 AM GEOMETRY TUTOR) WHITE BLOOD COUNT 4.8 4.5 - 11.0 thou/cu mm 10/27/2023 7:[address] [facility] RED BLOOD COUNT 4.39 4.00 - 5.20 mil/cu mm 10/27/2023 7:[address] [facility] HEMOGLOBIN 13.2 12.0 - 16.0 g/dL 10/27/2023 7:[address] [facility] HEMATOCRIT 39.2 33.0 - 51.0 % 10/27/2023 7:[address] [facility] MCV 89 80 - 100 fL 10/27/2023 7:[address] [facility] MCH 30.1 26.0 - 34.0 pg 10/27/2023 7:[address] [facility] MCHC 33.7 32.0 - 36.0 g/dL 10/27/2023 7:[address] [facility] RDW 13.7 11.5 - 15.5 % 10/27/2023 7:[address] [facility] PLATELET COUNT 270 140 - 440 thou/cu mm 10/27/2023 7:[address] [facility] MPV 8.9 6.5 - 11.0 fL 10/27/2023 7:[address] [facility] % NEUT 63.3 % 10/27/2023 7:[address] [facility] % LYMPH 27.5 % 10/27/2023 7:[address] [facility] % MONO 7.5 % 10/27/2023 7:[address] [facility] % EOS 1.7 % 10/27/2023 7:[address] [facility] % BASO 0.0 % 10/27/2023 7:[address] [facility] ABSOLUTE NEUTROPHILS 3.1 1.7 - 7.0 thou/cu mm 10/27/2023 7:[address] [facility] ABSOLUTE LYMPHOCYTES 1.3 0.9 - 2.9 thou/cu mm 10/27/2023 7:[address] [facility] ABSOLUTE MONOCYTES 0.4 <0.9 thou/cu mm 10/27/2023 7:[address] [facility] ABSOLUTE EOSINOPHILS 0.1 <0.5 thou/cu mm 10/27/2023 7:[address] [facility] ABSOLUTE BASOPHILS 0.0 <0.3 thou/cu mm 10/27/2023 7:[address] [facility] Blood BLOOD SPECIMEN / Unknown Venipuncture / Unknown 10/27/2023 7:49 AM GEOMETRY TUTOR 10/27/2023 7:49 AM [facility] - 10/27/2023 7:53 AM [facility] This testing was ordered by an outside provider. The provider who placed this order has reviewed and approved it for completion by the lab, but is not involved in this patient's care related to the ordering of this lab. The lab will provide the testing results for Albumin, ALT, AST, CDF and Creat, to the outside ordering provider, Sarah Kang at fax number [phone], for that provider to inform and arrange appropriate follow up with the patient. Linda Fritz MLT ([facility]).................... ??10/18/2023 ?? 10:15 AM Case Gao MD HEMATOLOGY Performing Organization Address City/Va Hospital/ZIP Co de Phone Number [facility] [address] [place] [address], [place] [phone] * (ABNORMAL) CREATININE (10/27/2023 7:49 AM GEOMETRY TUTOR) eGFR 85(L) >90 mL/min/1.7 3m2 10/27/2023 1:48 PM GEOMETRY TUTOR [facility] Comment:As of 2021, eG FR is calculated by the CKD-EPI creatinine equation without race adjustment. ??eGFR can be influenced by muscle mass, exercise, and diet. ??The reported eGFR is an estimation only and is only applicable if the renal function is stable. CREATININE 0.79 0.50 - 0.90 mg/dL 10/27/2023 1:48 PM GEOMETRY TUTOR [facility] Blood BLOOD SPECIMEN / Unknown Venipuncture / Unknown 10/27/2023 7:49 AM GEOMETRY TUTOR 10/27/2023 7:49 AM GEOMETRY TUTOR Case Gao MD CHEMISTRY Performing Organization Address [facility] Hospital/[facility] Co de Phone Number [facility] [address] [address], [place] * ALT (SGPT) (10/27/2023 7:49 AM GEOMETRY TUTOR) ALT (SGPT) 21 10 - 35 IU/L 10/27/2023 1:48 PM GEOMETRY TUTOR [facility] Blood BLOOD SPECIMEN / Unknown Venipuncture / Unknown 10/27/2023 7:49 AM GEOMETRY TUTOR 10/27/2023 7:49 AM GEOMETRY TUTOR Case Gao MD CHEMISTRY Performing Organization Address City/Va Hospital/ZIP Co de Phone Number [facility] [address] [address], [place] * AST (SGOT) (10/27/2023 7:49 AM GEOMETRY TUTOR) AST (SGOT) 17 10 - 35 IU/L 10/27/2023 1:48 PM GEOMETRY TUTOR [facility] Blood BLOOD SPECIMEN / Unknown Venipuncture / Unknown 10/27/2023 7:49 AM GEOMETRY TUTOR 10/27/2023 7:49 AM GEOMETRY TUTOR Case Gao MD CHEMISTRY Performing Organization Address City/Va Hospital/ZIP Co de Phone Number [facility] [address] [place] [address], [place] * ALBUMIN (10/27/2023 7:49 AM GEOMETRY TUTOR) ALBUMIN 4.2 4.0 - 4.9 g/dL 10/27/2023 1:48 PM GEOMETRY TUTOR [facility] Blood BLOOD SPECIMEN / Unknown Venipuncture / Unknown 10/27/2023 7:49 AM GEOMETRY TUTOR 10/27/2023 7:49 AM GEOMETRY TUTOR Case Gao MD CHEMISTRY [facility] [address] [place] [address], [place] * LIPID PANEL W REFLEX MEASURED LDL (11/14/2020 7:56 AM GEOMETRY TUTOR) CHOLESTEROL,TOTAL 189 100 - 199 mg/dL 11/14/2020 2:34 PM GEOMETRY TUTOR [facility] TRIGLYCERIDES 60 <150 mg/dL 11/14/2020 2:34 PM GEOMETRY TUTOR [facility] HDL CHOLESTEROL 94 >40 mg/dL 2:34 PM GEOMETRY TUTOR [facility] NON-HDL CHOLESTEROL 95 <145 mg/dl 11/14/2020 2:34 PM GEOMETRY TUTOR [facility] CHOL/HDL RATIO 2.01 <4.50 11/14/2020 2:34 PM GEOMETRY TUTOR [facility] LDL CHOLESTEROL 83 <=130 mg/dL 11/14/2020 2:34 PM GEOMETRY TUTOR [facility] PROVIDER ORDERED STATUS RANDOM 11/14/2020 2:34 PM GEOMETRY TUTOR [facility] Blood BLOOD SPECIMEN / Unknown Venipuncture / Unknown 11/14/2020 7:56 AM GEOMETRY TUTOR 11/14/2020 7:56 AM GEOMETRY TUTOR Case Gao MD CHEMISTRY [facility] [address] [place] [address], * OCCULT BLOOD IFOBT STOOL (11/16/2019 10:00 AM CDT) STOOL BLOOD ,IFOBT Negative Negative 11/16/2019 1:26 PM CDT [facility] Stool STOOL SPECIMEN / Unknown Non-Blood / Unknown 11/16/2019 10:00 AM CDT 11/16/2019 1:17 PM CDT Case Gao MD LABORATORY Performing Organization Address City/Va Hospital/ZIP Co de Phone Number [facility] [address] [place] [address], * HANDER IN THIN PREP PAP SCREEN IMAGED (12/25/2018 5:05 PM CDT) Case Report Gynecologic Cytology Report ? Case: [id number] ? Authorizing Provider: ??Case Gao, ?? Collected: ? 12/25/2018 1705 ? MD ? Ordering Location: ? [facility] ?? Received: ?12/25/2018 1723 ? Clinic ? First Screen: ?Mitra Vallejo ? Specimen: ?HANDER IN ThinPrep Vial Screening, Cervical ? 01/04/2019 8:58 AM CDT [facility] [employer] [facility] INTERPRETATION/ RESULT NEGATIVE FOR INTRAEPITHELIAL LESION OR MALIGNANCY (NIL) (none) 01/04/2019 8:58 AM T [facility] IMEN ADEQUACY Satisfactory for evaluation Endocervical component present 01/04/2019 8:58 AM CDT [facility] HPV REQUEST HPV and PAP 01/04/2019 8:58 AM CDT [facility] [employer] [facility] ENTRAL LABORATORY Date of LMP unknown 01/04/2019 8:58 AM CDT [facility] [employer] [facility] EN[facility] LABOR[facility]ORY Last Pap Date 09/19/14 01/04/2019 8:58 AM CDT [facility] Last Pap Result NIL 9 8:58 AM CDT [facility] Abnormal Pap or Borden Bx in last 5 years No 01/04/2019 8:58 AM CDT [facility] Menstrual Status Postmenopausal 01/04/2019 8:58 AM CDT [facility] Borden Bx Done Today No 01/04/2019 8:58 AM CDT [facility] Additional Information None given 01/04/2019 8:58 AM CDT [facility] Automated Review Successful 01/04/2019 8:58 AM CDT [facility] Comment:Specimen processed s uccessfully by automated veneer splicer device, [employer] Imaging System, [employer] ANCILLARY TESTING HANDER IN HPV Ordered, Please see separate report 01/04/2019 8:58 AM CDT [facility] Note The pap test is a [...] lesions. Cytology is screened and interpreted at [facility] - [address], [place] [address] and [facility] - [address]; [place] [address] and [facility] - [address]; [place] [address] and [facility] [address]; [place] [address] 01/04/2019 8:58 AM CDT [facility] Other (Cervical) Non-Blood / Unknown 12/25/2018 5:05 PM CDT 12/25/2018 5:23 PM CDT Case Gao MD PATHOLOGY/CYTO LOGY [facility] [address] [place] [address], [place] * XR MAMMO BILAT SCREENING (12/04/2018 11:12 AM CDT) Anatomical Region Laterality Modality BREASTS, Breast Left, Breast Right Bilateral Mammography Impressions 12/04/2018 12:26 PM CDT ??There is no radiographic evidence for malignancy. ??Recommend annual mammograms. A lay language report of this examination will be provided to the patient. MAMMOGRAM ASSESSMENT: ??ACR 2 Benign Narrative 12/04/2018 12:26 PM CDT XR MAMMO BILAT SCREENING [[id number]] CLINICAL HISTORY: ??This is an asymptomatic 58 y.o. patient. INDICATION FOR EXAM: Mammogram Screening. TECHNIQUE: CC & MLO views were obtained. ??This digital study was evaluated with the assistance of Computer-Aided Detection. COMPARISON FILMS: Yes 03/31/10 [facility] 01/28/16 [facility] FINDINGS: ??Mammographically, the breast tissue has scattered fibroglandular densities. ??No suspicious masses or microcalcifications. ?? Benign appearing calcifications within both breasts, Benign appearing mass(es) within right breast and Benign appearing asymmetry within right breast. Case Gao MD MAMMO * ANTI HCV (03/31/2017 10:07 AM CDT) HEPATITIS C ANTIBODY Non-Reacti ve Non-Reacti ve 03/31/2017 4:31 PM CDT [facility] Blood BLOOD SPECIMEN / Unknown Venipuncture / Unknown 03/31/2017 10:07 AM CDT 03/31/2017 10:07 AM CDT Narrative [facility] - 03/31/2017 4:31 PM CDT Antibodies to HCV not detected; does not exclude the possibility of exposure to HCV. Case Gao MD SEND OUTS [facility] [address] [place] [address], from Last 3 Months or Most Recently Relevant to Health Maintenance Advance Directives * Full Code (Latest Code Status on File) Date Activated Date Inactivated Comments 02/26/2022 3:57 AM 02/27/2022 3:25 PM Question Answer Comments Code Status Discussion: Reviewed Preferences * Full Code Date Activated Date Inactivated Comments 06/23/2012 5:55 PM 06/24/2012 4:41 PM Care Teams Customer Sales Specialist Relationship Specialty Start Date End Date Case Gao MD [address] [place] [address] PCP - General 11/28/06
--- OUTSIDE RECORDS SUMMARY | 2023-12-21 13:59 | XMS_ITS | Continuity of Care Document ---
Author Name Unknown Organization [facility] Address [address] [place] [address] Phone Care Team Providers Care Ancillary Services Manager Therapy Name Role Phone Sarah Rowan DO Unavailable [...] WEEKS, THEN 1 TABLET DAILY. - Active hydroxyzine HCl 25 mg tablet take 1 tablet by oral route 4 times every day as needed as needed 25 MG - Active Keppra 500 mg tablet take 2 tablet by oral route 2 times every day 1000 MG - Active lisinopril 20 mg-hydrochlorothiazide 12.5 mg tablet take 1 tablet by oral route every day 1 tablet - Active venlafaxine 75 mg [...] [facility] , [address], [place], [address], [place] tel:[phone] [facility] No Information 4 Philippe Smith. [address], [place], [address], [place]. tel:[phone] [facility] , [address], [place], [address], [place] tel:[phone] [facility] , No Information 4 Philippe Smith. [address], [place], [address], [place]. tel:[phone] Office/Outpa tient Visit, Est [facility] , [address], [place], [address], [place] tel:[phone] [facility] , Rheumatoid arthritis with rheumatoid factor 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 systems involvementO ther guest experience specialist (current) drug therapy 4 Philippe Smith. [address], [place], [address], [place]. tel:[phone] Referring Provider: Sarah Epperson, [address], [place], [address]. tel:[phone] [facility] , [address], [place], [address], [place] tel:[phone] [facility] , No Information 3 Skemp Pearl Smith. [address], [place], [address], [place]. tel:[phone] [facility] , [address], [place], [address], [place] tel:[phone] [facility] , No Information 3 Skemp Pearl Smith. [address], [place], [address], [place]. tel:[phone] Office/Outpa tient Visit, Est [facility] , [address], [place], [address], [place] tel:[phone] [facility] , Rheumatoid arthritis (chief complaint)Mo nitor Chronic High Risk Meds (chief complaint) RA w/ rheumatoid factor of multiple sites w/o organ involvementO [facility] ([facility] drug therapyOther dorsalgia 3 María Denis. [facility] [address], [place], [address], [place]. tel:[phone] , [facility] [address], [place], [address].Refer ring Provider: Adeel Daniel W, [facility] [address], [place], [address]. tel:[phone] [facility] , [address], [place], [address], [place] tel:[phone] [facility] No Information 2 María Denis. [facility] [address], [place], [address], [place]. tel:[phone] Office/Outpa tient Visit, Est [facility] , [address], [place], [address], [place] tel:[phone] [facility] , Rheumatoid arthritis (chief complaint)Mo nitor Chronic High Risk Meds (chief complaint) RA w/ rheumatoid factor of multiple sites w/o organ involvementO [facility] [place] [facility] therapy 2 María Denis. [facility] [address], [place], [address], [place]. tel:[phone] , [facility] [address], [place], [address].Refer ring Provider: Adeel Tang, [facility] [address], [place], [address]. tel:[phone] [facility] , [address], [place], [address], [place] tel:[phone] [facility] , No Information 2 María Denis. [facility] [address], [place], [address], [place]. tel:[phone] Referring Provider: Adeel Tang, [facility] [address], [place], [address]. tel:[phone] Office/Outpa tient Visit, Est [facility] , [address], [place], [address], [place] tel:[phone] [facility] , Rheumatoid arthritis (chief complaint)Mo nitor Chronic High Risk Meds (chief complaint) RA w/ rheumatoid factor of multiple sites w/o organ involvementO ther guest experience specialist (current) drug therapy 1 María Denis. [facility] [address], [place], [address], [place]. tel:[phone] , [address], [place], [address].Refer ring Provider: Adeel Tang, [facility] [address], [place], [address]. tel:[phone] Office/Outpa tient Visit, Est [facility] , [address], [place], [address], [place] tel:[phone] [facility] , Rheumatoid arthritis (chief complaint)Mo nitor Chronic High Risk Meds (chief complaint) AnxietyRA w/ rheumatoid factor of multiple sites w/o organ involvement[place] [facility] [place] [facility] therapy 0 María Denis. [facility] [address], [place], [address], [place]. tel:[phone] , [address], [place], [address].Refer ring Provider: Adeel Tang, [facility] [address], [place], [address]. tel:[phone] Office/Outpa tient Visit, Est [facility] , [address], [place], [address], [place] tel:[phone] [facility] , Rheumatoid arthritis (chief complaint)Mo nitor Chronic High Risk Meds (chief complaint) AnxietyRA w/ rheumatoid factor of multiple sites w/o organ involvementO ther guest experience specialist (current) drug therapy 0 María Denis. [facility] [address], [place], [address], [place]. tel:[phone] , [address], [place], [address].Refer ring Provider: Adeel Tang, [facility] [address], [place], [address]. tel:[phone] Office/Outpa tient Visit, Est [facility] , [address], [place], [address], [place] tel:[phone] [facility] , Rheumatoid arthritis (chief complaint)Mo nitor Chronic High Risk Meds (chief complaint) AnxietyRA w/ rheumatoid factor of multiple sites w/o organ involvement[place] [facility] [place] [facility] drug therapy María Denis. [facility] [address], [place], [address], [place]. tel:[phone] , [facility] [address] [place] [address] [address], [place], [address].Refer ring Provider: Adeel Tang, [facility] [address], [place], [address]. tel:[phone] Office/Outpa tient Visit, Est [facility] , [address], [place], [address], [place] tel:[phone] [facility] , Rheumatoid arthritis (chief complaint)Mo nitor Chronic High Risk Meds (chief complaint) AnxietyRA w/ rheumatoid factor of multiple sites w/o organ involvementO [facility] [place] [facility] therapy 8 María Denis. [facility] [address], [place], [address], [place]. tel:[phone] , [address], [place], [address].Refer ring Provider: Adeel Tang, [facility] [address], [place], [address]. tel:[phone] Office/Outpa tient Visit, Est [facility] , [address], [place], [address], [place] tel:[phone] [facility] , Rheumatoid arthritis (chief complaint)Mo nitor Chronic High Risk Meds (chief complaint) RA w/ rheumatoid factor of multiple sites w/o organ involvementO ther guest experience specialist (current) drug therapyAnxie ty 8 María Denis. [facility] [address], [place], [address], [place]. tel:[phone] Specialist: Tim Carrasquillo, [address], [place], [address]. tel:[phone] ring Provider: Adeel Tang, [facility] [address], [place], [address]. tel:[phone] Office/Outpa tient Visit, Est [facility] , [address], [place], [address], [place] tel:[phone] [facility] , Rheumatoid arthritis (chief complaint)Mo nitor Chronic High Risk Meds (chief complaint) RA w/ rheumatoid factor of multiple sites w/o organ involvementO ther guest experience specialist (current) drug therapy 7 María Denis. [facility] [address], [place], [address], [place]. tel:[phone] Specialist: Tim Carrasquillo, [address], [place], [address]. tel:[phone] ring Provider: Adeel Tang, [facility] [address], [place], [address]. tel:[phone] [facility] , [address], [place], [address], [place] tel:[phone] [facility] , Rheumatoid arthritis (chief complaint)Mo nitor Chronic High Risk Meds (chief complaint) RA w/ rheumatoid factor of multiple sites w/o organ involvementO ther guest experience specialist (current) drug therapyPain in right shoulder Neto-0 9201 7 María Denis. [facility] [address], [place], [address], [place]. tel:[phone] Specialist: Tim Carrasquillo, [facility] [address] [place] [address] [address], [place], [address]. tel:[phone] ring Provider: Adeel Tang, [facility] [address], [place], [address]. tel:[phone] Office/Outpa tient Visit, Est [facility] , [address], [place], [address], [place] tel:[phone] [facility] , Rheumatoid arthritis (chief complaint)Mo nitor Chronic High Risk Meds (chief complaint) RA w/ rheumatoid factor of multiple sites w/o organ involvementO ther guest experience specialist (current) drug therapy Feb-10 09-201 6 María Denis. [facility] [address], [place], [address], [place]. tel:[phone] Specialist: Tim Carrasquillo, [address], [place], [address]. tel:[phone] ring Provider: Adeel Tang, [facility] [address], [place], [address]. tel:[phone] Office/Outpa tient Visit, Est [facility] , [address], [place], [address], [place] tel:[phone] [facility] , Rheumatoid arthritis (chief complaint)Mo nitor Chronic High Risk Meds (chief complaint) RA w/ rheumatoid factor of multiple sites w/o organ involvement[place] [facility] [place] [facility] drug therapyShoul velasquez joint pain María Denis. [facility] [address], [place], [address], [place]. tel:[phone] Specialist: Tim Carrasquillo, [facility] [address] [place] [address] [address], [place], [address]. tel:[phone] ring Provider: Adeel Tang, [facility] [address], [place], [address]. tel:[phone] Office/Outpa tient Visit, Est [facility] , [address], [place], [address], [place] tel:[phone] [facility] , Rheumatoid arthritis (chief complaint)Mo nitor Chronic High Risk Meds (chief complaint) Rheumatoid arthritisThe rapeutic Drug MonitoringFi nger joint contracture María Denis. [facility] [address], [place], [address], [place]. tel:[phone] Specialist: Tim Carrasquillo, [facility] [address] [place] [address] [address], [place], [address]. tel:[phone] ring Provider: Adeel Tang, [facility] [address], [place], [address]. tel:[phone] Office/Outpa tient Visit, Est [facility] , [address], [place], [address], [place] tel:[phone] [facility] , Rheumatoid Arthritis (chief complaint) Rheumatoid ArthritisThe rapeutic Drug MonitoringPa in in joint involving lower leg Aug- 4 María Denis. [facility] [address], [place], [address], [place]. tel:[phone] Specialist: Tim Carrasquillo, [facility] [address], [place], [address]. tel:[phone] ring Provider: Adeel Tang, [facility] [address], [place], [address]. tel:[phone] Office/Outpa tient Visit, Est [facility] , [address], [place], [address], [place] tel:[phone] [facility] , Rheumatoid Arthritis (chief complaint) Rheumatoid ArthritisThe rapeutic Drug MonitoringPa in in joint involving lower legPain in joint involving shoulder regionUnspec ified disorder of skin and subcutaneous tissue 4 María Denis. [facility] [address], [place], [address], [place]. tel:[phone] Specialist: Tim Carrasquillo, [facility] [address] [place] [address] [address], [place], [address]. tel:[phone] ring Provider: Adeel Tang, [facility] [address], [place], [address]. tel:[phone] Office/Outpa tient Visit, Est [facility] , [address], [place], [address], [place] tel:[phone] [facility] , Rheumatoid Arthritis (chief complaint) Rheumatoid ArthritisThe rapeutic Drug MonitoringPa in in joint involving shoulder region 4 María Denis. [facility] [address], [place], [address], [place]. tel:[phone] Specialist: Tim Carrasquillo, [facility] [address] [place] [address] [address], [place], [address]. tel:[phone] ring Provider: Adeel Tang, [facility] [address], [place], [address]. tel:[phone] Office/Outpa tient Visit, Est [facility] , [address], [place], [address], [place] tel:[phone] [facility] , Rheumatoid Arthritis (chief complaint) Rheumatoid ArthritisThe rapeutic Drug MonitoringLO NG-TERM (CURRENT) USE OF STEROIDS 3 María Denis. [facility] [address], [place], [address], [place]. tel:[phone] Specialist: Tim Carrasquillo, [facility] [address] [place] [address] [address], [place], [address]. tel:[phone] Provider: Adeel Tang, [facility] [address], [place], [address]. tel:[phone] Office/Outpa tient Visit, Est [facility] , [address], [place], [address], [place] tel:[phone] [facility] , Rheumatoid Arthritis (chief complaint) Rheumatoid ArthritisThe rapeutic Drug MonitoringLO NG-TERM (CURRENT) USE OF STEROIDSCoug h 3 María Adeel. [facility] [address], [place], [address], [place]. tel:[phone] Specialist: Tim Carrasquillo, [facility] [address] [place] [address] [address], [place], [address]. tel:[phone] ring Provider: Adeel Tang, [facility] [address], [place], [address]. tel:[phone] Office/Outpa tient Visit, Est [facility] , [address], [place], [address], [place] tel:[phone] [facility] , Rheumatoid Arthritis (chief complaint) Rheumatoid ArthritisThe rapeutic Drug MonitoringLO NG-TERM (CURRENT) USE OF STEROIDS 3 María Denis. [facility] [address], [place], [address], [place]. tel:[phone] Specialist: Tim Carrasquillo, [facility] [address] [place] [address] [address], [place], [address]. tel:[phone] ring Provider: Adeel Tang, [facility] [address], [place], [address]. tel:[phone] Office/Outpa tient Visit, Est [facility] , [address], [place], [address], [place] tel:[phone] [facility] , Rheumatoid Arthritis (chief complaint) Rheumatoid ArthritisThe rapeutic Drug MonitoringUl cer of ankle 3 María Denis. [facility] [address], [place], [address], [place]. tel:[phone] Specialist: Tim Carrasquillo, [address], [place], [address]. tel:[phone] ring Provider: Adeel Tang, [facility] [address], [place], [address]. tel:[phone] Office/Outpa tient Visit, Est [facility] , [address], [place], [address], [place] tel:[phone] [facility] , Rheumatoid Arthritis (chief complaint) Rheumatoid ArthritisThe rapeutic Drug MonitoringLO NG-TERM (CURRENT) USE OF STEROIDS Dec-0 7-201 2 María Adeel. [facility] [address], [place], [address], [place]. tel:[phone] Specialist: Tim Carrasquillo, [facility] [address] [place] [address] [address], [place], [address]. tel:[phone] ring Provider: Adeel Tang, [facility] [address], [place], [address]. tel:[phone] Office/Outpa tient Visit, Est [facility] , [address], [place], [address], [place] tel:[phone] [facility] , Rheumatoid Arthritis (chief complaint) Rheumatoid ArthritisLON G-TERM (CURRENT) USE OF STEROIDS Nov-0 2-201 2 María Adeel. [facility] [address], [place], [address], [place]. tel:[phone] Specialist: Tim Carrasquillo, [facility] [address], [place], [address]. tel:[phone] ring Provider: Adeel Tang, [facility] [address], [place], [address]. tel:[phone] Office/Outpa tient Visit, New [facility] , [address], [place], [address], [place] tel:[phone] [facility] , Pulmonary infiltrates (chief complaint) Unspecified inflammatory polyarthropa thyLONG-TERM (CURRENT) USE OF STEROIDS 2 María Denis. [facility] [address], [place], [address], [place]. tel:[phone] Specialist: Tim Carrasquillo, [facility] [address], [place], [address]. tel:[phone] ring Provider: Adeel Tang, [facility] [address], [place], [address]. tel:[phone] Family History Family Member Type Diagnosis Age At Onset Sister Problem (finding) malignant neoplasm of o vary Father Problem (finding) cancer of colon Immunizations Vaccine Date Status Comments COVID-19 Pebble administered S ource: Other Provider Payers Payer name Insurance type Covered constitution party ID Authorpatt rogers(s) [facility] [id number] Social History Type Description Quantity Date Captured [...] safety monitoring ophthalmologic evaluation. Related to Other guest experience specialist (current) drug therapy Continue hydroxychlo roquine 400 [...] safety monitoring ophthalmologic evaluation. Related to Other guest experience specialist (current) drug therapy The patient will hav e CBC, Cr, transaminases and albumin performed every 3 months.Pursue annual safety monitoring ophthalmologic evaluation. [facility] to [facility] Continue hydroxychlo roquine 400 [...] safety monitoring ophthalmologic evaluation. Related to Other guest experience specialist (current) drug therapy Continue input as ne [...] performed every 3 months. Related to [facility] Continue input as ne eded with her primary care provider or psychologist/psychiatrist. Related to Anxiety The patient will hav e CBC, Cr, transaminases and albumin performed every 3 months. Related to Other guest experience specialist (current) drug therapy Continue current ant i-rheumatic medications unchanged.I will consider PFT and potential update of chest imaging. Related to RA w/ rheumatoid factor of multiple sites w/o organ involvement I again urged ruel katz to update evaluation with her primary care provider or a psychologist/psychiatrist. Related to Anxiety The patient will hav e CBC, Cr, transaminases and albumin performed every 3 months. Related to [facility] Continue current ant i-rheumatic [...] chest imaging.The patient may be moving to [facility] if her gets the new job that they anticipate. 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 Related to Other guest experience specialist (current) drug therapy The patient will hav e CBC, Cr, transaminases and albumin performed every 3 months. Related to [facility] Continue current ant i-rheumatic medications unchanged.The patient may be moving to [facility] if her gets the new [...] performed every 3 months. Related to [facility] drug therapy Continue current ant i-rheumatic [...] performed every 3 months. Related to [facility] drug therapy After discussion of potential treatment options, risks and benefits, the patient and I are in agreement with pursuing local corticosteroid injection. Related to Shoulder joint pain The patient will hav e CBC, Cr, transaminases and albumin performed every 2-3 months. Related to [facility] drug [facility] Continue current ant i-rheumatic [...]
--- OUTSIDE RECORDS SUMMARY | 2023-12-21 13:59 | XMS_ITS | Clinical Summary ---
Author Name Unknown Organization [facility] Address [address] [place] [address] Care Team Providers Care Concrete Mixer Truck Driver Name Role Phone Case Gao Primary Care Provider [phone] Allergies Active Allergy Reactions Criticality Noted Date [...] Octavia J Medical Devices Implanted Type Area Drawer In Device Identifier Shelf Expiration Date Model / Serial / Lot Insert Actb 42mm 28mm E Hip X3 Adm Strl Lf Mdm 7236-2-848 - [id number] Implanted:Qty: 1 on 04/08/2023 by Fazal Ramirez MD at [facility] Metallic Hardware/An chor Left: Hip [employer]W [employer] [id number] 10/07/2027 7236-2-8 48 / / [id number] Trident Ii Tritanium Clusterhole 52e - [id number] Implanted:Qty: 1 on 03/25/2023 by Cj Chen MD at [facility] Total Joint Component/I nsert Left: Hip [employer] 12/29/2027 702-04-5 2E / / [id number] A Insert El 36mm 0deg X3 723-00-36e - [id number] Implanted:Qty: 1 on 03/25/2023 by Cj Chen MD at [facility] Total Joint Component/I nsert Left: Hip [employer]W [employer] 12/24/2027 723-00-3 6E / / [id number] Imp Stem Fem Rstrtn Mod Bowed Conical [id number] 6276-7-219 - [id number] Implanted:Qty: 1 on 04/08/2023 by Fazal Ramirez MD at [facility] Total Joint Component/I nsert Left: Hip [employer]W [employer] [id number] 02/14/2027 6276-7-2 19 / / [id number] Imp Insert Acet Strk Mdm Cocr Hip 0deg 42mm Sz E 626-00-42e - [id number] Implanted:Qty: 1 on 04/08/2023 by Fazal Ramirez MD at [facility] Total Joint Component/I nsert Left: Hip [employer]W [employer] [id number] 01/13/2028 626-00-4 2E / / [id number] Imp Stem Fem Mod Rev Hip Prox Body/[place] 19mm +10 6276-1-119 - [id number] Implanted:Qty: 1 on 04/08/2023 by Fazal Ramirez MD at [facility] Total Joint Component/I nsert Left: Hip [employer] [id number] 08/15/2024 6276-1-1 [id number] Imp Head Femoral Strk Biolox Delta Ceramic 28mm +4mm - [id number] Implanted:Qty: 1 on 04/08/2023 by Fazal Ramirez MD at [facility] Total Joint Component/I nsert Left: Hip [employer] [id number] 10/31/2027 6570-0-2 28 / / [id number] Fibertape Cerclage, 2mm, 48 Implanted:Qty: 3 on 04/08/2023 by Fazal Ramirez MD at [facility] Left: Hip [employer] 06/04/2027 AR-7268 / / [id number] Fibertape Cerclage, 2mm, 48 Implanted:Qty: 1 on 04/08/2023 by Fazal Ramirez MD at [facility] Left: Hip [employer] 01/03/2028 AR-7268 / [id number] / Fibertape Cerclage, 2mm, 48 Implanted:Qty: 1 on 04/08/2023 by Fazal Ramirez MD at [facility] Left: Hip [employer]X 11/03/2027 AR-7268 / / [id number] Explanted Type Area Drawer In Device Identifier Shelf Expiration Date Model / Serial / Lot Imp Stem Femoral Hip Strk Accolade Ii 132deg Sz 5 2422-1033 - [id number] Implanted:Qty: 1 on 03/25/2023 by Cj Chen MD at [facility] Explanted:Qty: 1 on 04/08/2023 by Fazal Ramirez MD at [facility] Total Joint Component /Insert Left: Hip [employer] 03/03/2027 7636-4331 / / [id number] Imp Head Femoral Strk Biolox Delta Ceramic 36mm +2.5mm - [id number] Implanted:Qty: 1 on 03/25/2023 by Cj Chen MD at [facility] Explanted:Qty: 1 on 04/08/2023 by Fazal Ramirez MD at [facility] Total Joint Component /Insert Left: Hip [employer] 12/07/2027 6570-0-536 / / [id number] 6.5 Mm Cannulated Screws, 16mm Thread Length 80mm Implanted:Qty: 3 on 01/25/2021 by Cj Chen MD at [facility] Explanted:Qty: 3 on 03/25/2023 by Cj Chen MD at [facility] Left: Hip SYNTHES 408.411 24 JAN 2021 Titanium Washer, 13.0 Mm Implanted:Qty: 3 on 01/25/2021 by Cj Chen MD at [facility] Explanted:Qty: 3 on 03/25/2023 by Cj Chen MD at [facility] Left: Hip SYNTHES 419.99 24 JAN 2021 8002 Procedures Procedure Name Priority Date/Time Associated Diagnosis Comments BASIC METABOLIC PANEL Routine 04/10/2023 7:07 AM CDT COLONOSCOPY - HIM SCAN 10/25/2022 12:00 AM OUTSIDE SALES MANAGER from Last 3 Months or Most Recently [...] MD LAB - BLOOD ORDERABL ES LABORATORY [facility] Lab [address] [facility] (1st floor, no room number) [place] [address], [facility] [phone] * COLONOSCOPY - HIM SCAN (10/25/2022 12:00 AM OUTSIDE SALES MANAGER) 10/25/2022 Provider Outside PROCEDURES from Last 3 Months or Most Recently Relevant to Health Maintenance Additional Health Concerns Active Problems Noted Date Diagnosed Date Total Joint Replacement Hip Pathway 03/15/2023 Advance Directives For more information, please contact: [phone] * Full Code (Latest Code Status on [...] carmen nt/ legal decision maker Care Teams Concrete Mixer Truck Driver Relationship Specialty Start Date End Date Case Gao [address] [place] [address] PCP - General Family Medicine 01/25/21
--- OUTSIDE RECORDS SUMMARY | 2023-12-21 13:59 | XMS_ITS | Referral Summary ---
Author Name Unknown Organization [facility] Address [address] [place] [address] Care Team Providers Care Brim Blocker Name Role Phone Case Gao Primary Care Provider [phone] Allergies Active Allergy Reactions Criticality Noted Date [...] Octavia J Medical Devices Implanted Type Area Supervisor Frame Assembly Device Identifier Shelf Expiration Date Model / Serial / Lot Insert Actb 42mm 28mm E Hip X3 Adm Strl Lf Mdm 7236-2-848 - [id number] Implanted:Qty: 1 on 04/08/2023 by Fazal Ramirez MD at [facility] Metallic Hardware/An chor Left: Hip MATTHEW [employer] [id number] 10/07/2027 7236-2-8 48 / / [id number] Trident Ii Tritanium Clusterhole 52e - [id number] Implanted:Qty: 1 on 03/25/2023 by Cj Chen MD at [facility] Total Joint Component/I nsert Left: Hip [employer] 12/29/2027 702-04-5 2E / / [id number] A Insert El 36mm 0deg X3 723-00-36e - [id number] Implanted:Qty: 1 on 03/25/2023 by Cj Chen MD at [facility] Total Joint Component/I nsert Left: Hip [employer] 12/24/2027 723-00-3 6E / / [id number] Imp Stem Fem Rstrtn Mod Bowed Conical 22t014px 6276-7-219 - [id number] Implanted:Qty: 1 on 04/08/2023 by Fazal Ramirez MD at [facility] Total Joint Component/I nsert Left: Hip MATTHEW [employer] [id number] 02/14/2027 6276-7-2 19 / / [id number] Imp Insert Acet Strk Mdm Cocr Hip 0deg 42mm Sz E 626-00-42e - [id number] Implanted:Qty: 1 on 04/08/2023 by Fazal Ramirez MD at [facility] Total Joint Component/I nsert Left: Hip [employer] [id number] 01/13/2028 626-00-4 2E / / [id number] Imp Stem Fem Mod Rev Hip Prox Body/[place] 19mm +10 6276-1-119 - [id number] Implanted:Qty: 1 on 04/08/2023 by Fazal Ramirez MD at [facility] Total Joint Component/I nsert Left: Hip [employer] [id number] 08/15/2024 6276-1-1 19 / / [id number] Imp Head Femoral Strk Biolox Delta Ceramic 28mm +4mm - [id number] Implanted:Qty: 1 on 04/08/2023 by Fazal Ramirez MD at [facility] Total Joint Component/I nsert Left: Hip [employer] [id number] 10/31/2027 6570-0-2 28 / / [id number] Fibertape Cerclage, 2mm, 48 Implanted:Qty: 3 on 04/08/2023 by Fazal Ramirez MD at [facility] Left: Hip [employer] 06/04/2027 AR-7268 / / [id number] Fibertape Cerclage, 2mm, 48 Implanted:Qty: 1 on 04/08/2023 by Fazal Ramirez MD at [facility] Left: Hip AR[employer]X 01/03/2028 AR-7268 / [id number] / Fibertape Cerclage, 2mm, 48 Implanted:Qty: 1 on 04/08/2023 by Fazal Ramirez MD at [facility] Left: Hip [employer] 11/03/2027 AR-7268 / / [id number] Explanted Type Area Supervisor Frame Assembly Device Identifier Shelf Expiration Date Model / Serial / Lot Imp Stem Femoral Hip Strk Accolade Ii 132deg Sz 5 7178-1827 - [id number] Implanted:Qty: 1 on 03/25/2023 by Cj Chen MD at [facility] Explanted:Qty: 1 on 04/08/2023 by Fazal Ramirez MD at [facility] Total Joint Component /Insert Left: Hip [employer] 03/03/2027 5735-8277 / / [id number] Imp Head Femoral Strk Biolox Delta Ceramic 36mm +2.5mm - [id number] Implanted:Qty: 1 on 03/25/2023 by Cj Chen MD at [facility] Explanted:Qty: 1 on 04/08/2023 by Fazal Ramirez MD at [facility] Total Joint Component /Insert Left: Hip [employer]W [employer] 12/07/2027 6570-0-536 / / [id number] 6.5 Mm Cannulated Screws, 16mm Thread Length 80mm Implanted:Qty: 3 on 01/25/2021 by Cj Chen MD at [facility] Explanted:Qty: 3 on 03/25/2023 by Cj Chen MD at [facility] Left: Hip SYNTHES 408.411 24 JAN 2021 Titanium Washer, 13.0 Mm Implanted:Qty: 3 on 01/25/2021 by Cj Chen MD at [facility] Explanted:Qty: 3 on 03/25/2023 by Cj Chen MD at [facility] Left: Hip SYNTHES 419.99 24 JAN 2021 8002 Procedures Procedure Name Priority Date/Time Associated Diagnosis Comments BASIC METABOLIC PANEL Routine 04/10/2023 7:07 AM CDT COLONOSCOPY - HIM SCAN 10/25/2022 12:00 AM SERVICE DISPATCHER from Last 3 Months or Most Recently [...] LAB - BLOOD ORDERABL ES LABORATORY [facility] Acute Care Lab [address] Lab (1st floor, no room number) [place] [address], [facility] [phone] * COLONOSCOPY - HIM SCAN (10/25/2022 12:00 AM SERVICE DISPATCHER) 10/25/2022 Provider Outside PROCEDURES from Last 3 Months or Most Recently Relevant to Health Maintenance Additional Health Concerns Active Problems Noted Date Diagnosed Date Total Joint Replacement Hip Pathway 03/15/2023 Advance Directives For more information, please contact: [phone] * Full Code (Latest Code Status on [...] patie nt/ legal decision maker Care Teams Brim Blocker Relationship Specialty Start Date End Date Case Gao [address] [place] [address] PCP - General Family Medicine 01/25/21
== END 2023-12-21 13:54 | disposition home or self-care (01) ==
LOC: WOUND 13:53
PROVIDERS: PCP Family Medicine; Visit Provider Surgery
DX: I87.2 Venous insufficiency (chronic) (peripheral) (principal); L97.812 Non-pressure chronic ulcer of other part of right lower leg with fat layer exposed; M06.9 Rheumatoid arthritis, unspecified; Z79.60 Long term (current) use of unspecified immunomodulators and immunosuppressants
CPT/HCPCS: 11042

== ENCOUNTER 2023-12-28 13:56 | Outpatient (CLI) | payer BC, SELFPAY ==
--- OUTSIDE RECORDS SUMMARY | 2023-12-28 13:59 | XMS_ITS | Continuity of Care Document ---
Author Name Unknown Organization [facility] Address [address] [place] [address] Phone Care Team Providers Care Inspector [employer] Name Role Phone Sarah Rowan DO Unavailable [...] route every day 1 tablet - Active hydroxyzine HCl 25 mg tablet take 1 tablet by oral route 4 times every day as needed as needed 25 MG - Active Keppra 500 mg tablet take 2 tablet by oral route 2 times every day 1000 MG - Active venlafaxine 75 mg tablet [...] [facility] , [address], [place], [address], [place] tel:[phone] [facility] No Information 4 Philippe Smith. [address], [place], [address], [place]. tel:[phone] [facility] , [address], [place], [address], [place] tel:[phone] [facility] , No Information 4 Philippe Smith. [address], [place], [address], [place]. tel:[phone] Office/Outpa tient Visit, Est [facility] , [address], [place], [address], [place] tel:[phone] [facility] , Rheumatoid arthritis with rheumatoid factor 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 systems involvementO ther terminal operations supervisor (current) drug therapy 4 Philippe Smtih. [address], [place], [address], [place]. tel:[phone] Referring Provider: Sarah Epperson, [address], [place], [address]. tel:[phone] [facility] , [address], [place], [address], [place] tel:[phone] [facility] , No Information 3 Skemp Pearl Smith. [address], [place], [address], [place]. tel:[phone] [facility] , [address], [place], [address], [place] tel:[phone] [facility] , No Information 3 Skemp Pearl Smith. [address], [place], [address], [place]. tel:[phone] Office/Outpa tient Visit, Est [facility] , [address], [place], [address], [place] tel:[phone] [facility] , Rheumatoid arthritis (chief complaint)Mo nitor Chronic High Risk Meds (chief complaint) RA w/ rheumatoid factor of multiple sites w/o organ involvementO ther skilled nursing (current) drug therapyOther dorsalgia 3 María Denis. [facility] [address], [place], [address], [place]. tel:[phone] , [facility] [address], [place], [address].Refer ring Provider: Adeel Daniel W, [facility] [address], [place], [address]. tel:[phone] [facility] , [address], [place], [address], [place] tel:[phone] [facility] No Information 2 María Denis. [facility] [address], [place], [address], [place]. tel:[phone] Office/Outpa tient Visit, Est [facility] , [address], [place], [address], [place] tel:[phone] [facility] , Rheumatoid arthritis (chief complaint)Mo nitor Chronic High Risk Meds (chief complaint) RA w/ rheumatoid factor of multiple sites w/o organ involvementO ther skilled nursing (current) drug therapy 2 María Denis. [facility] [address], [place], [address], [place]. tel:[phone] , [facility] [address], [place], [address].Refer ring Provider: Adeel Tang, [facility] [address], [place], [address]. tel:[phone] [facility] , [address], [place], [address], [place] tel:[phone] [facility] , No Information 2 María Denis. [facility] [address], [place], [address], [place]. tel:[phone] Referring Provider: Adeel Tang, [facility] [address], [place], [address]. tel:[phone] Office/Outpa tient Visit, Est [facility] , [address], [place], [address], [place] tel:[phone] [facility] , Rheumatoid arthritis (chief complaint)Mo nitor Chronic High Risk Meds (chief complaint) RA w/ rheumatoid factor of multiple sites w/o organ involvementO ther terminal operations supervisor (current) drug therapy 1 María Denis. [facility] [address], [place], [address], [place]. tel:[phone] , [address], [place], [address].Refer ring Provider: Adeel Tang, [facility] [address], [place], [address]. tel:[phone] Office/Outpa tient Visit, Est [facility] , [address], [place], [address], [place] tel:[phone] [facility] , Rheumatoid arthritis (chief complaint)Mo nitor Chronic High Risk Meds (chief complaint) AnxietyRA w/ rheumatoid factor of multiple sites w/o organ involvementO ther skilled nursing (current) drug therapy 0 María Denis. [facility] [address], [place], [address], [place]. tel:[phone] , [address], [place], [address].Refer ring Provider: Adeel Tang, [facility] [address], [place], [address]. tel:[phone] Office/Outpa tient Visit, Est [facility] , [address], [place], [address], [place] tel:[phone] [facility] , Rheumatoid arthritis (chief complaint)Mo nitor Chronic High Risk Meds (chief complaint) AnxietyRA w/ rheumatoid factor of multiple sites w/o organ involvementO ther terminal operations supervisor (current) drug therapy 0 María Denis. [facility] [address], [place], [address], [place]. tel:[phone] , [address], [place], [address].Refer ring Provider: Adeel Tang, [facility] [address], [place], [address]. tel:[phone] Office/Outpa tient Visit, Est [facility] , [address], [place], [address], [place] tel:[phone] [facility] , Rheumatoid arthritis (chief complaint)Mo nitor Chronic High Risk Meds (chief complaint) AnxietyRA w/ rheumatoid factor of multiple sites w/o organ involvementO ther skilled nursing (current) drug therapy María Denis. [facility] [address], [place], [address], [place]. tel:[phone] , [facility] [address] [place] [address] [address], [place], [address].Refer ring Provider: Adeel Tang, [facility] [address], [place], [address]. tel:[phone] Office/Outpa tient Visit, Est [facility] , [address], [place], [address], [place] tel:[phone] [facility] , Rheumatoid arthritis (chief complaint)Mo nitor Chronic High Risk Meds (chief complaint) AnxietyRA w/ rheumatoid factor of multiple sites w/o organ involvementO ther skilled nursing (current) drug therapy 8 María Densi. [facility] [address], [place], [address], [place]. tel:[phone] , [address], [place], [address].Refer ring Provider: Adeel Tang, [facility] [address], [place], [address]. tel:[phone] Office/Outpa tient Visit, Est [facility] , [address], [place], [address], [place] tel:[phone] [facility] , Rheumatoid arthritis (chief complaint)Mo nitor Chronic High Risk Meds (chief complaint) RA w/ rheumatoid factor of multiple sites w/o organ involvementO ther terminal operations supervisor (current) drug therapyAnxie ty 8 María Denis. [facility] [address], [place], [address], [place]. tel:[phone] Specialist: Tim Carrasquillo, [address], [place], [address]. tel:[phone] ring Provider: Adeel Tang, [facility] [address], [place], [address]. tel:[phone] Office/Outpa tient Visit, Est [facility] , [address], [place], [address], [place] tel:[phone] [facility] , Rheumatoid arthritis (chief complaint)Mo nitor Chronic High Risk Meds (chief complaint) RA w/ rheumatoid factor of multiple sites w/o organ involvementO ther terminal operations supervisor (current) drug therapy 7 María Denis. [facility] [address], [place], [address], [place]. tel:[phone] Specialist: Tim Carrasquillo, [address], [place], [address]. tel:[phone] ring Provider: Adeel Tang, [facility] [address], [place], [address]. tel:[phone] [facility] , [address], [place], [address], [place] tel:[phone] [facility] , Rheumatoid arthritis (chief complaint)Mo nitor Chronic High Risk Meds (chief complaint) RA w/ rheumatoid factor of multiple sites w/o organ involvementO ther terminal operations supervisor (current) drug therapyPain in right shoulder Neto-0 9201 7 María Denis. [facility] [address], [place], [address], [place]. tel:[phone] Specialist: Tim Carrasquillo, [facility] [address] [place] [address] [address], [place], [address]. tel:[phone] ring Provider: Adeel Tang, [facility] [address], [place], [address]. tel:[phone] Office/Outpa tient Visit, Est [facility] , [address], [place], [address], [place] tel:[phone] [facility] , Rheumatoid arthritis (chief complaint)Mo nitor Chronic High Risk Meds (chief complaint) RA w/ rheumatoid factor of multiple sites w/o organ involvementO ther terminal operations supervisor (current) drug therapy Feb-10 09-201 6 María Denis. [facility] [address], [place], [address], [place]. tel:[phone] Specialist: Tim Carrasquillo, [address], [place], [address]. tel:[phone] ring Provider: Adeel Tang, [facility] [address], [place], [address]. tel:[phone] Office/Outpa tient Visit, Est [facility] , [address], [place], [address], [place] tel:[phone] [facility] , Rheumatoid arthritis (chief complaint)Mo nitor Chronic High Risk Meds (chief complaint) RA w/ rheumatoid factor of multiple sites w/o organ involvementO ther skilled nursing (current) drug therapyShoul velasquez joint pain María Denis. [facility] [address], [place], [address], [place]. tel:[phone] Specialist: Tim Carrasquillo, [facility] [address] [place] [address] [address], [place], [address]. tel:[phone] ring Provider: Adeel Tang, [facility] [address], [place], [address]. tel:[phone] Office/Outpa tient Visit, Est [facility] , [address], [place], [address], [place] tel:[phone] [facility] , Rheumatoid arthritis (chief complaint)Mo nitor Chronic High Risk Meds (chief complaint) Rheumatoid arthritisThe rapeutic Drug MonitoringFi nger joint contracture María Denis. [facility] [address], [place], [address], [place]. tel:[phone] Specialist: Tim Carrasquillo, [facility] [address] [place] [address] [address], [place], [address]. tel:[phone] ring Provider: Adeel Tang, [facility] [address], [place], [address]. tel:[phone] Office/Outpa tient Visit, Est [facility] , [address], [place], [address], [place] tel:[phone] [facility] , Rheumatoid Arthritis (chief complaint) Rheumatoid ArthritisThe rapeutic Drug MonitoringPa in in joint involving lower leg Aug- 4 María Denis. [facility] [address], [place], [address], [place]. tel:[phone] Specialist: Tim Carrasquillo, [facility] [address], [place], [address]. tel:[phone] ring Provider: Adeel Tang, [facility] [address], [place], [address]. tel:[phone] Office/Outpa tient Visit, Est [facility] , [address], [place], [address], [place] tel:[phone] [facility] , Rheumatoid Arthritis (chief complaint) Rheumatoid ArthritisThe rapeutic Drug MonitoringPa in in joint involving lower legPain in joint involving shoulder regionUnspec ified disorder of skin and subcutaneous tissue 4 María Denis. [facility] [address], [place], [address], [place]. tel:[phone] Specialist: Tim Carrasquillo, [facility] [address] [place] [address] [address], [place], [address]. tel:[phone] ring Provider: Adeel Tang, [facility] [address], [place], [address]. tel:[phone] Office/Outpa tient Visit, Est [facility] , [address], [place], [address], [place] tel:[phone] [facility] , Rheumatoid Arthritis (chief complaint) Rheumatoid ArthritisThe rapeutic Drug MonitoringPa in in joint involving shoulder region 4 María Denis. [facility] [address], [place], [address], [place]. tel:[phone] Specialist: Tim Carrasquillo, [facility] [address] [place] [address] [address], [place], [address]. tel:[phone] ring Provider: Adeel Tang, [facility] [address], [place], [address]. tel:[phone] Office/Outpa tient Visit, Est [facility] , [address], [place], [address], [place] tel:[phone] [facility] , Rheumatoid Arthritis (chief complaint) Rheumatoid ArthritisThe rapeutic Drug MonitoringLO NG-TERM (CURRENT) USE OF STEROIDS 3 María Denis. [facility] [address], [place], [address], [place]. tel:[phone] Specialist: Tim Carrasquillo, [facility] [address] [place] [address] [address], [place], [address]. tel:[phone] [facility] Provider: Adeel Tang, [facility] [address], [place], [address]. tel:[phone] Office/Outpa tient Visit, Est [facility] , [address], [place], [address], [place] tel:[phone] [facility] , Rheumatoid Arthritis (chief complaint) Rheumatoid ArthritisThe rapeutic Drug MonitoringLO NG-TERM (CURRENT) USE OF STEROIDSCoug h 3 María Adeel. [facility] [address], [place], [address], [place]. tel:[phone] Specialist: Tim Carrasquillo, [facility] [address] [place] [address] [address], [place], [address]. tel:[phone] ring Provider: Adeel Tang, [facility] [address], [place], [address]. tel:[phone] Office/Outpa tient Visit, Est [facility] , [address], [place], [address], [place] tel:[phone] [facility] , Rheumatoid Arthritis (chief complaint) Rheumatoid ArthritisThe rapeutic Drug MonitoringLO NG-TERM (CURRENT) USE OF STEROIDS 3 María Denis. [facility] [address], [place], [address], [place]. tel:[phone] Specialist: Tim Carrasquillo, [facility] [address] [place] [address] [address], [place], [address]. tel:[phone] ring Provider: Adeel Tang, [facility] [address], [place], [address]. tel:[phone] Office/Outpa tient Visit, Est [facility] , [address], [place], [address], [place] tel:[phone] [facility] , Rheumatoid Arthritis (chief complaint) Rheumatoid ArthritisThe rapeutic Drug MonitoringUl cer of ankle 3 María Denis. [facility] [address], [place], [address], [place]. tel:[phone] Specialist: Tim Carrasquillo, [address], [place], [address]. tel:[phone] ring Provider: Adeel Tang, [facility] [address], [place], [address]. tel:[phone] Office/Outpa tient Visit, Est [facility] , [address], [place], [address], [place] tel:[phone] [facility] , Rheumatoid Arthritis (chief complaint) Rheumatoid ArthritisThe rapeutic Drug MonitoringLO NG-TERM (CURRENT) USE OF STEROIDS Dec-0 7-201 2 María Adeel. [facility] [address], [place], [address], [place]. tel:[phone] Specialist: Tim Carrasquillo, [facility] [address] [place] [address] [address], [place], [address]. tel:[phone] ring Provider: Adeel Tang, [facility] [address], [place], [address]. tel:[phone] Office/Outpa tient Visit, Est [facility] , [address], [place], [address], [place] tel:[phone] [facility] , Rheumatoid Arthritis (chief complaint) Rheumatoid ArthritisLON G-TERM (CURRENT) USE OF STEROIDS Nov-0 2-201 2 María Adeel. [facility] [address], [place], [address], [place]. tel:[phone] Specialist: Tim Carrasquillo, [facility] [address], [place], [address]. tel:[phone] ring Provider: Adeel Tang, [facility] [address], [place], [address]. tel:[phone] Office/Outpa tient Visit, New [facility] , [address], [place], [address], [place] tel:[phone] [facility] , Pulmonary infiltrates (chief complaint) Unspecified inflammatory polyarthropa thyLONG-TERM (CURRENT) USE OF STEROIDS 2 María Denis. [facility] [address], [place], [address], [place]. tel:[phone] Specialist: Tim Carrasquillo, [facility] [address], [place], [address]. tel:[phone] ring Provider: Adeel Tang, [facility] [address], [place], [address]. tel:[phone] Family History Family Member Type Diagnosis Age At Onset Sister Problem (finding) malignant neoplasm of o vary Father Problem (finding) cancer of colon Immunizations Vaccine Date Status Comments COVID-19 Yext administered S ource: Other Provider Payers Payer name Insurance type Covered constitution party ID Authorpatt rogers(s) [facility] [id number] Social History Type Description Quantity Date Captured [...] monitoring ophthalmologic evaluation. Related to Other terminal operations supervisor (current) drug therapy Continue hydroxychlo roquine [...] monitoring ophthalmologic evaluation. Related to Other terminal operations supervisor (current) drug therapy Continue hydroxychlo roquine [...] monitoring ophthalmologic evaluation. Related to Other terminal operations supervisor (current) drug therapy Continue hydroxychlo roquine [...] monitoring ophthalmologic evaluation. Related to Other terminal operations supervisor (current) drug therapy The patient will hav e CBC, Cr, transaminases and albumin performed every 3 months. Related to Other terminal operations supervisor (current) drug therapy After discussion of [...] every 3 months. Related to Other terminal operations supervisor (current) drug therapy Continue input as [...] every 3 months. Related to Other terminal operations supervisor (current) drug therapy I again urged ruel katz to update evaluation with her primary care provider or a psychologist/psychiatrist. Related to Anxiety I urged patient to u pdate her evaluation with her primary care provider or a psychologist/psychiatrist. Related to Anxiety Continue current ant i-rheumatic medications unchanged.I will strongly consider PFT and potential update of chest imaging.The patient may be moving to [facility] [employer] [facility] [employer] [facility] if her gets the new job that they anticipate. 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 Related to Other terminal operations supervisor (current) drug therapy Continue current ant i-rheumatic medications unchanged.The patient may be moving to [facility] if her gets the new job that they anticipate. 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 Related to Other terminal operations supervisor (current) drug therapy I encouraged the pat [...] performed every 3 months. Related to Other skilled nursing (current) drug therapy Continue current ant i-rheumatic medications unchanged, except option to decrease prednisone from 5 milligrams to 4 milligrams per day.We will consider left knee joint corticosteroid injection. 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 Related to Other skilled nursing (current) drug therapy After discussion of potential treatment options, risks and benefits, the patient and I are in agreement with pursuing local corticosteroid injection. Related to Shoulder joint pain The patient will hav e CBC, Cr, transaminases and albumin performed every 2-3 months. Related to Other skilled nursing (current) drug therapy Continue current ant i-rheumatic [...]
--- OUTSIDE RECORDS SUMMARY | 2023-12-28 13:59 | XMS_ITS | Clinical Summary ---
Author Name Unknown Organization [facility] Address [address] [address] Phone Care Team Providers Care Freight Forwarder Name Role Phone Unavailable Primary Care Provider [...]
--- OUTSIDE RECORDS SUMMARY | 2023-12-28 13:59 | XMS_ITS | Clinical Summary ---
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 10/14/2008 01/27/2021 Obesity, unspecified 11/26/2006 014 Encounters Date Type Department Care Team Description 12/26/2023 Telephone [facility] [address] [place] [address] Case Gao MD Medication Management (venlafaxine (EFFEXOR XR) 150 mg Extended-Release capsule//) 11/15/[address] [place] [address] Case Gao MD Questions 11/10/2023 Lab Requisition [facility] [phone] Vira Pepe MD 11/03/2023 Telephone [facility] [address] [place] [address] Case Gao MD Questions (UPDATE ON DISABILITY FORMS) 10/27/2023 7:45 AM RESIDENTIAL AIDE Orders Only [address] [place] [address] Lab, [facility]; Outside Order (Ordered by Sarah Paez... 10/27/2023 Travel 10/20/2023 4:10 PM RESIDENTIAL AIDE Office Visit [address] [address] Case Gao MD Medication Management 10/20/2023 Travel 10/18/2023 Orders Only [address] [address] Case Gao MD Outside Order (Ordered by Sarah Hilton) 10/17/2023 Telephone [facility] [address] [place] [address] Case Gao MD Medication Management (venlafaxine (EFFEXOR) [...] Answer Date Recorded PHQ-2 TOTAL SCORE 2 12/26/2023 Social Connections Answer Date Recorded Frequency of [...] Comments Blood Pressure 116/76 10/20/2023 3:51 PM RESIDENTIAL AIDE Pulse 74 10/20/2023 3:51 PM RESIDENTIAL AIDE Temperature 36.7 ??C (98.1 ??F) 04/13/2023 7:48 AM CD T Respiratory Rate 16 02/27/2022 11:58 AM CDT Oxygen Saturation 100% 10/20/2023 3:51 PM RESIDENTIAL AIDE Inhaled Oxygen Concentration - - Weight 92.1 kg (203 lb) 10/20/2023 3:51 PM RESIDENTIAL AIDE Height 169.4 cm (5' 6.69) 03/21/2023 9:18 [...] history exists Depression screening for age 12+ 12/25/2024 12/26/2023, 10/20/2023, 03/22/2023, Additional history exists Lipids for age 45-75 [...] TRACKING EVENT Routine 11/09/2023 2: 17 PM RESIDENTIAL AIDE PATH TISSUE EXAM Routine 11/09/2023 2:17 PM RESIDENTIAL AIDE CBC WITH AUTO DIFFERENTIAL Routine 10/27/2023 7:49 AM RESIDENTIAL AIDE Encounter for long-term (current) use of other medications Rheumatoid arthritis with rheumatoid factor 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 systems involvement (HC) CREATININE Routine 10/27/2023 7:49 AM RESIDENTIAL AIDE Encounter for long-term (current) use of other medications Rheumatoid arthritis with rheumatoid factor 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 systems involvement (HC) CBC WITH AUTO DIFFERENTIAL Routine 10/27/2023 7:49 AM RESIDENTIAL AIDE Encounter for long-term (current) use of other medications Rheumatoid arthritis with rheumatoid factor 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 systems involvement (HC) AST (SGOT) Routine 10/27/2023 7:49 AM RESIDENTIAL AIDE Encounter for long-term (current) use of other medications Rheumatoid arthritis with rheumatoid factor 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 systems involvement (HC) ALT (SGPT) Routine 10/27/2023 7:49 AM RESIDENTIAL AIDE Encounter for long-term (current) use of other medications Rheumatoid arthritis with rheumatoid factor 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 systems involvement (HC) ALBUMIN Routine 10/27/2023 7:49 AM RESIDENTIAL AIDE Encounter for long-term (current) use of other medications Rheumatoid arthritis with rheumatoid factor 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 systems involvement (HC) LIPID PANEL W REFLEX MEASURED LDL Routine 11/14/2020 7:56 AM RESIDENTIAL AIDE Hyperlipidemia, unspecified hyperlipidemia type OCCULT BLOOD IFOBT STOOL Routine 11/16/2019 10:00 AM CDT Screening for colon cancer ROUTE MANAGER THIN PREP PAP SCREEN IMAGED Routine 12/25/2018 [...] * LAB TRACKING EVENT (11/09/2023 2:17 PM RESIDENTIAL AIDE) Other (Other) Client Collect / Unknown 11/09/2023 2:17 PM RESIDENTIAL AIDE 11/10/2023 1:31 PM RESIDENTIAL AIDE Vira Pepe MD LAB BILL ONLY [facility] [address] [place] [address], * PATH TISSUE EXAM (11/09/2023 2:17 PM RESIDENTIAL AIDE) Case Report Pathology Report ?Case: [id number] ? Authorizing Provider: ??Vira Pepe MD ??Collected: ? 11/09/2023 1417 ? Ordering Location: ? [facility] ?Received: ?11/10/2023 1542 ? Pathologist: ? Ed Marie MD ? Specimen: ?Right Leg ? 11/11/2023 4:09 PM [facility] Final Diagnosis A) SKIN, RIGHT LEG, BIOPSIES: 1. Cutaneous ulceration, see comment 2. No evidence of malignancy 11/11/2023 4:09 PM [facility] Comment A) The differential diagnosis includes the various causes of lower extremity ulceration including venous stasis, peripheral arterial disease, neuropathic, traumatic, infection, and coagulopathic. Within the appropriate clinical setting, if the aforementioned causes are ruled-out with appropriate studies and tissue cultures, these findings can be seen in a chronic ulcer related pyoderma gangrenosum. 11/11/2023 4:09 PM [facility] Clinical Information Patient with rheumatoid arthritis on methotrexate. Right lower leg with non-healing chronic wound since June 2023, assess for pyoderma gangrenosum. 11/11/2023 4:09 PM [facility] Gross Description A) Received in formalin, [...] 2. Skin punch #2, inked green, bisected [facility] 11/10/2023 11/11/2023 4:09 PM [facility] Microscopic Description The final diagnosis is [...] confirmed on tissue sections. 11/11/2023 4:09 PM RESIDENTIAL AIDE [facility] Additional Information Interpreted at [facility] - [address] [place] [address]. [facility] [address], [place] [address] 11/11/2023 4:09 PM RESIDENTIAL AIDE [facility] Other (Right Leg) 11/09/2023 2:17 PM RESIDENTIAL AIDE 11/10/2023 3:42 PM RESIDENTIAL AIDE Vira Pepe MD PATHOLOGY/[facility] [address] [place] [address], * CBC WITH AUTO DIFFERENTIAL (10/27/2023 7:49 AM RESIDENTIAL AIDE) WHITE BLOOD COUNT 4.8 4.5 - 11.0 thou/cu mm 10/27/2023 7:53 AM [facility] RED BLOOD COUNT 4.39 4.00 - 5.20 mil/cu mm 10/27/2023 7:53 AM [facility] HEMOGLOBIN 13.2 12.0 - 16.0 g/dL 10/27/2023 7:53 AM [facility] HEMATOCRIT 39.2 33.0 - 51.0 % 10/27/2023 7:53 AM [facility] MCV 89 80 - 100 fL 10/27/2023 7:53 AM [facility] MCH 30.1 26.0 - 34.0 pg 10/27/2023 7:53 AM [facility] MCHC 33.7 32.0 - 36.0 g/dL 10/27/2023 7:53 AM [facility] RDW 13.7 11.5 - 15.5 % 10/27/2023 7:53 AM [facility] PLATELET COUNT 270 140 - 440 thou/cu mm 10/27/2023 7:53 AM [facility] MPV 8.9 6.5 - 11.0 fL 10/27/2023 7:53 AM [facility] % NEUT 63.3 % 10/27/2023 7:53 AM [facility] % LYMPH 27.5 % 10/27/2023 7:53 AM [facility] % MONO 7.5 % 10/27/2023 7:53 AM [facility] % EOS 1.7 % 10/27/2023 7:53 AM [facility] % BASO 0.0 % 10/27/2023 7:53 AM [facility] ABSOLUTE NEUTROPHILS 3.1 1.7 - 7.0 thou/cu mm 10/27/2023 7:53 AM [facility] ABSOLUTE LYMPHOCYTES 1.3 0.9 - 2.9 thou/cu mm 10/27/2023 7:53 AM [facility] ABSOLUTE MONOCYTES 0.4 <0.9 thou/cu mm 10/27/2023 7:53 AM [facility] ABSOLUTE EOSINOPHILS 0.1 <0.5 thou/cu mm 10/27/2023 7:53 AM [facility] ABSOLUTE BASOPHILS 0.0 <0.3 thou/cu mm 10/27/2023 7:53 AM [facility] Blood BLOOD SPECIMEN / Unknown Venipuncture / Unknown 10/27/2023 7:49 AM RESIDENTIAL AIDE 10/27/2023 7:49 AM [facility] - 10/27/2023 7:53 AM [facility] This testing was ordered by [...] ordering provider, Sarah Kang at fax number [phone], for that provider to inform and arrange appropriate follow up with the patient. Linda Fritz MLT ([facility]).................... ??10/18/2023 ?? 10:15 AM Case Gao MD HEMATOLOGY [facility] [address] [place] [id number], [place] [phone] * (ABNORMAL) CREATININE (10/27/2023 7:49 AM RESIDENTIAL AIDE) eGFR 85(L) >90 mL/min/1.7 3m2 10/27/2023 1:48 PM RESIDENTIAL AIDE [facility] Comment:As of 2021, eG FR is calculated by the CKD-EPI creatinine equation without race adjustment. ??eGFR can be influenced by muscle mass, exercise, and diet. ??The reported eGFR is an estimation only and is only applicable if the renal function is stable. CREATININE 0.79 0.50 - 0.90 mg/dL 10/27/2023 1:48 PM RESIDENTIAL AIDE [facility] Blood BLOOD SPECIMEN / Unknown Venipuncture / Unknown 10/27/2023 7:49 AM RESIDENTIAL AIDE 10/27/2023 7:49 AM RESIDENTIAL AIDE Case Gao MD CHEMISTRY Performing Organization Address City/[facility]/ZIP Co de Phone Number [facility] [address] [place] [address], [place] * ALT (SGPT) (10/27/2023 7:49 AM RESIDENTIAL AIDE) Pathologist [facility] ALT (SGPT) 21 10 - 35 IU/L 10/27/2023 1:48 PM RESIDENTIAL AIDE [facility] Blood BLOOD SPECIMEN / Unknown Venipuncture / Unknown 10/27/2023 7:49 AM RESIDENTIAL AIDE 10/27/2023 7:49 AM RESIDENTIAL AIDE Case Gao MD CHEMISTRY Performing Organization Address City/[facility]/ZIP Co de Phone Number [facility] [address] [place] [address], [place] * AST (SGOT) (10/27/2023 7:49 AM RESIDENTIAL AIDE) AST (SGOT) 17 10 - 35 IU/L 10/27/2023 1:48 PM RESIDENTIAL AIDE [facility] Blood BLOOD SPECIMEN / Unknown Venipuncture / Unknown 10/27/2023 7:49 AM RESIDENTIAL AIDE 10/27/2023 7:49 AM RESIDENTIAL AIDE Case Gao MD CHEMISTRY Performing Organization Address [facility] Co de Phone Number [facility] [address] [place] [address], [place] * ALBUMIN (10/27/2023 7:49 AM RESIDENTIAL AIDE) ALBUMIN 4.2 4.0 - 4.9 g/dL 10/27/2023 1:48 PM RESIDENTIAL AIDE [facility] Blood BLOOD SPECIMEN / Unknown Venipuncture / Unknown 10/27/2023 7:49 AM RESIDENTIAL AIDE 10/27/2023 7:49 AM RESIDENTIAL AIDE Case Gao MD CHEMISTRY Performing Organization Address [facility] Co de Phone Number [facility] [address] [place] [address], [place] * LIPID PANEL W REFLEX MEASURED LDL (11/14/2020 7:56 AM RESIDENTIAL AIDE) CHOLESTEROL,TOTAL 189 100 - 199 mg/dL 11/14/2020 2:34 PM RESIDENTIAL AIDE [facility] TRIGLYCERIDES 60 <150 mg/dL 11/14/2020 2:34 PM RESIDENTIAL AIDE [facility] HDL CHOLESTEROL 94 >40 mg/dL 2:34 PM RESIDENTIAL AIDE [facility] NON-HDL CHOLESTEROL 95 <145 mg/dl 11/14/2020 2:34 PM RESIDENTIAL AIDE [facility] CHOL/HDL RATIO 2.01 <4.50 11/14/2020 2:34 PM RESIDENTIAL AIDE [facility] LDL CHOLESTEROL 83 <=130 mg/dL 11/14/2020 2:34 PM RESIDENTIAL AIDE [facility] PROVIDER ORDERED STATUS RANDOM 11/14/2020 2:34 PM RESIDENTIAL AIDE [facility] Blood BLOOD SPECIMEN / Unknown Venipuncture / Unknown 11/14/2020 7:56 AM RESIDENTIAL AIDE 11/14/2020 7:56 AM RESIDENTIAL AIDE Case Gao MD CHEMISTRY [facility] [address] [place] [address], * OCCULT BLOOD IFOBT STOOL (11/16/2019 10:00 AM CDT) STOOL BLOOD ,IFOBT Negative Negative 11/16/2019 1:26 PM CDT [facility] Stool STOOL SPECIMEN / Unknown Non-Blood / Unknown 11/16/2019 10:00 AM CDT 11/16/2019 1:17 PM CDT Case Gao MD LABORATORY Performing Organization Address City/[facility]/ZIP Co de Phone Number [facility] [address] [place] [address], * ROUTE MANAGER THIN PREP PAP SCREEN IMAGED (12/25/2018 5:05 PM CDT) Case Report Gynecologic Cytology Report ? Case: [id number] ? Authorizing Provider: ??Case Gao, ?? Collected: ? 12/25/2018 1705 ? MD ? Ordering Location: ? [facility] ?? Received: ?12/25/2018 1723 ? Clinic ? First Screen: ?Mitra Vallejo ? Specimen: ?ROUTE MANAGER ThinPrep Vial Screening, Cervical ? 01/04/2019 8:58 AM CDT [facility] INTERPRETATION/ RESULT NEGATIVE FOR INTRAEPITHELIAL LESION OR MALIGNANCY (NIL) (none) 01/04/2019 8:58 AM [facility] IMEN ADEQUACY Satisfactory for evaluation Endocervical component present 01/04/2019 8:58 AM CDT [facility] HPV REQUEST HPV and PAP 01/04/2019 8:58 AM CDT [facility] EN[facility]AL LAB[facility] Date of LMP unknown 01/04/2019 8:58 AM CDT [facility] Last Pap Date 09/19/14 01/04/2019 8:58 AM CDT [facility] Last Pap Result NIL 8:58 AM CDT [facility] Abnormal Pap or [place] Bx in last 5 years No 01/04/2019 8:58 AM CDT [facility] Menstrual Status Postmenopausal 01/04/2019 8:58 AM CDT [facility] [place] Bx Done Today No 01/04/2019 8:58 AM CDT [facility] Additional Information None given 01/04/2019 8:58 AM CDT [facility] Automated Review Successful 01/04/2019 8:58 AM CDT [facility] Comment:Specimen processed s uccessfully by automated signaler device, ThinPrep Imaging System, [employer] ANCILLARY TESTING ROUTE MANAGER HPV Ordered, Please see separate report 01/04/2019 8:58 AM CDT [facility] Note The pap test is a screening [...] lesions. Cytology is screened and interpreted at [facility] - [address], [place] [address] and [facility] - [address]; [place] [address] and [facility] - [address]; [place] [address] and [facility] [address]; [place] [address] 01/04/2019 8:58 AM CDT [facility] Other (Cervical) Non-Blood / Unknown 12/25/2018 5:05 PM CDT 12/25/2018 5:23 PM CDT Case Gao MD PATHOLOGY/CYTO LOGY [facility] [address] [place] [address], [place] * XR MAMMO BILAT SCREENING (12/04/2018 11:12 AM CDT) Anatomical Region Laterality Modality BREASTS, Breast Left, Breast Right Bilateral Mammography Impressions 12/04/2018 12:26 PM CDT ??There is no radiographic evidence for malignancy. ??Recommend annual mammograms. A lay language report of this examination will be provided to the patient. MAMMOGRAM ASSESSMENT: ??ACR 2 Benign Narrative 12/04/2018 12:26 PM CDT XR MAMMO BILAT SCREENING [[id number]] CLINICAL HISTORY: ??This is an asymptomatic 58 y.o. patient. INDICATION FOR EXAM: Mammogram Screening. TECHNIQUE: CC & MLO views were obtained. ??This digital study was evaluated with the assistance of Computer-Aided Detection. COMPARISON FILMS: Yes 03/31/10 [facility] 01/28/16 [facility] FINDINGS: ??Mammographically, the breast tissue has scattered fibroglandular densities. ??No suspicious masses or microcalcifications. ?? Benign appearing calcifications within both breasts, Benign appearing mass(es) within right breast and Benign appearing asymmetry within right breast. Case Gao MD MAMMO * ANTI HCV (03/31/2017 10:07 AM CDT) HEPATITIS C ANTIBODY Non-Reacti ve Non-Reacti ve 03/31/2017 4:31 PM CDT [facility] Blood BLOOD SPECIMEN / Unknown Venipuncture / Unknown 03/31/2017 10:07 AM CDT 03/31/2017 10:07 AM CDT Narrative [facility] - 03/31/2017 4:31 PM CDT Antibodies to HCV not detected; does not exclude the possibility of exposure to HCV. Case Gao MD SEND OUTS [facility] [address] [place] [address], [place] from Last 3 Months or Most Recently Relevant to Health Maintenance Advance Directives * Full Code (Latest Code Status on File) Date Activated Date Inactivated Comments 02/26/2022 3:57 AM 02/27/2022 3:25 PM Question Answer Comments Code Status Discussion: Reviewed Preferences * Full Code Date Activated Date Inactivated Comments 06/23/2012 5:55 PM 06/24/2012 4:41 PM Care Teams Casting Trucker Relationship Specialty Start Date End Date Case Gao MD [address] [place] [address] PCP - General 11/28/06
--- OUTSIDE RECORDS SUMMARY | 2023-12-28 13:59 | XMS_ITS | Clinical Summary ---
Author Name Unknown Organization [facility] Address [address] [place] [address] Care Team Providers Care Deputy County Counsel Name Role Phone Case Gao Primary Care Provider [phone] Allergies Active Allergy Reactions Criticality Noted Date [...] Octavia J [employer] Implanted Type Area Needle Punch Machine Operator Device Identifier Shelf Expiration Date Model / Serial / Lot Insert Actb 42mm 28mm E Hip X3 Adm Strl Lf Mdm 7236-2-848 - [id number] Implanted:Qty: 1 on 04/08/2023 by Fazal Ramirez MD at [facility] Metallic Hardware/An chor Left: Hip [employer] [id number] 10/07/2027 7236-2-8 48 / / [id number] Trident Ii Tritanium Clusterhole 52e - [id number] Implanted:Qty: 1 on 03/25/2023 by Cj Chen MD at [facility] Total Joint Component/I nsert Left: Hip [employer] 12/29/2027 702-04-5 2E / / [id number] A Insert El 36mm 0deg X3 723-00-36e - [id number] Implanted:Qty: 1 on 03/25/2023 by Cj Chen MD at [facility] Total Joint Component/I nsert Left: Hip [employer] 12/24/2027 723-00-3 6E / / [id number] Imp Stem Fem Rstrtn Mod Bowed Conical [id number] 6276-7-219 - [id number] Implanted:Qty: 1 on 04/08/2023 by Fazal Ramirez MD at [facility] Total Joint Component/I nsert Left: Hip [employer] [id number] 02/14/2027 6276-7-2 19 / / [id number] 0A Imp Insert Acet Strk Mdm Cocr Hip 0deg 42mm Sz E 626-00-42e - [id number] Implanted:Qty: 1 on 04/08/2023 by Fazal Ramirez MD at [facility] Total Joint Component/I nsert Left: Hip [employer] [id number] 01/13/2028 626-00-4 2E / / [id number] Imp Stem Fem Mod Rev Hip Prox Body/[place] 19mm +10 6276-1-119 - [id number] Implanted:Qty: 1 on 04/08/2023 by Fazal Ramirez MD at [facility] Total Joint Component/I nsert Left: Hip [employer] [id number] 08/15/2024 6276-1-1 [id number] Imp Head Femoral Strk Biolox Delta Ceramic 28mm +4mm - [id number] Implanted:Qty: 1 on 04/08/2023 by Fazal Ramirez MD at [facility] Total Joint Component/I nsert Left: Hip [employer] [id number] 10/31/2027 6570-0-2 28 / / [id number] Fibertape Cerclage, 2mm, 48 Implanted:Qty: 3 on 04/08/2023 by Fazal Ramirez MD at [facility] Left: Hip AR[employer]X 06/04/2027 AR-7268 / / [id number] Fibertape Cerclage, 2mm, 48 Implanted:Qty: 1 on 04/08/2023 by Fazal Ramirez MD at [facility] Left: Hip [employer] 01/03/2028 AR-7268 / [id number] / Fibertape Cerclage, 2mm, 48 Implanted:Qty: 1 on 04/08/2023 by Fazal Ramirez MD at [facility] Left: Hip [employer] 11/03/2027 AR-7268 / / [id number] Explanted Type Area Needle Punch Machine Operator Device Identifier Shelf Expiration Date Model / Serial / Lot Imp Stem Femoral Hip Strk Accolade Ii 132deg Sz 5 0074-2333 - [id number] Implanted:Qty: 1 on 03/25/2023 by Cj Chen MD at [facility] Explanted:Qty: 1 on 04/08/2023 by Fazal Ramirez MD at [facility] Total Joint Component /Insert Left: Hip [employer] 03/03/2027 3297-2190 / / [id number] Imp Head Femoral Strk Biolox Delta Ceramic 36mm +2.5mm - [id number] Implanted:Qty: 1 on 03/25/2023 by Cj Chen MD at [facility] Explanted:Qty: 1 on 04/08/2023 by Fazal Ramirez MD at [facility] Total Joint Component /Insert Left: Hip [employer] 12/07/2027 6570-0-536 / / [id number] 6.5 Mm Cannulated Screws, 16mm Thread Length 80mm Implanted:Qty: 3 on 01/25/2021 by Cj Chen MD at [facility] Explanted:Qty: 3 on 03/25/2023 by Cj Chen MD at [facility] Left: Hip SYNTHES 408.411 24 JAN 2021 Titanium Washer, 13.0 Mm Implanted:Qty: 3 on 01/25/2021 by Cj Chen MD at [facility] Explanted:Qty: 3 on 03/25/2023 by Cj Chen MD at [facility] Left: Hip SYNTHES 419.99 24 JAN 2021 8002 Procedures Procedure Name Priority Date/Time Associated Diagnosis Comments BASIC METABOLIC PANEL Routine 04/10/2023 7:07 AM CDT COLONOSCOPY - HIM SCAN 10/25/2022 12:00 AM ACCOUNT DEVELOPMENT SPECIALIST from Last 3 Months or Most Recently [...] MD LAB - BLOOD ORDERABL ES LABORATORY [facility] [address] [facility] (1st floor, no room number) [place] [address], [facility] [phone] * COLONOSCOPY - HIM SCAN (10/25/2022 12:00 AM ACCOUNT DEVELOPMENT SPECIALIST) 10/25/2022 Provider Outside PROCEDURES from Last 3 Months or Most Recently Relevant to Health Maintenance Additional Health Concerns Active Problems Noted Date Diagnosed Date Total Joint Replacement Hip Pathway 03/15/2023 Advance Directives For more information, please contact: [phone] * Full Code (Latest Code Status on [...] carmen nt/ legal decision maker Care Teams Deputy County Counsel Relationship Specialty Start Date End Date Case Gao [address] [place] [address] PCP - General Family Medicine 01/25/21
--- OUTSIDE RECORDS SUMMARY | 2023-12-28 13:59 | XMS_ITS | Referral Summary ---
Author Name Unknown Organization [facility] Address [address] [place] [address] Care Team Providers Care Spar Machine Operator Name Role Phone Case Gao Primary Care Provider [phone] Allergies Active Allergy Reactions Criticality Noted Date [...] Octavia J Medical Devices Implanted Type Area Optical Lab Technician Device Identifier Shelf Expiration Date Model / Serial / Lot Insert Actb 42mm 28mm E Hip X3 Adm Strl Lf Mdm 7236-2-848 - [id number] Implanted:Qty: 1 on 04/08/2023 by Fazal Ramirez MD at [facility] Metallic Hardware/An chor Left: Hip [employer]W [employer] [id number] 10/07/2027 7236-2-8 48 / / [id number] Trident Ii Tritanium Clusterhole 52e - [id number] Implanted:Qty: 1 on 03/25/2023 by Cj Chen MD at [facility] Total Joint Component/I nsert Left: Hip [employer] 12/29/2027 702-04-5 2E / / [id number] A Insert El 36mm 0deg X3 723-00-36e - [id number] Implanted:Qty: 1 on 03/25/2023 by Cj Chen MD at [facility] Total Joint Component/I nsert Left: Hip [employer] 12/24/2027 723-00-3 6E / / [id number] Imp Stem Fem Rstrtn Mod Bowed Conical 26x355wg 6276-7-219 - [id number] Implanted:Qty: 1 on 04/08/2023 by Fazal Ramirez MD at [facility] Total Joint Component/I nsert Left: Hip [employer]W [employer] [id number] 02/14/2027 6276-7-2 19 / / [id number] Imp Insert Acet Strk Mdm Cocr Hip 0deg 42mm Sz E 626-00-42e - [id number] Implanted:Qty: 1 on 04/08/2023 by Fazal Ramirez MD at [facility] Total Joint Component/I nsert Left: Hip [employer] [id number] 01/13/2028 626-00-4 2E / / [id number] Imp Stem Fem Mod Rev Hip Prox Body/[employer] 19mm +10 6276-1-119 - [id number] Implanted:Qty: 1 on 04/08/2023 by Fazal Ramirez MD at [facility] Total Joint Component/I nsert Left: Hip [employer] [id number] 08/15/2024 6276-1-1 19 / / [id number] Imp Head Femoral Strk Biolox Delta Ceramic 28mm +4mm - [id number] Implanted:Qty: 1 on 04/08/2023 by Fazal Ramirez MD at [facility] Total Joint Component/I nsert Left: Hip [employer] [id number] 10/31/2027 6570-0-2 28 / / [id number] Fibertape Cerclage, 2mm, 48 Implanted:Qty: 3 on 04/08/2023 by Fazal Ramirez MD at [facility] Left: Hip AR[employer] 06/04/2027 AR-7268 / / [id number] Fibertape Cerclage, 2mm, 48 Implanted:Qty: 1 on 04/08/2023 by Fazal Ramirez MD at [facility] Left: Hip [employer] 01/03/2028 AR-7268 / [id number] / Fibertape Cerclage, 2mm, 48 Implanted:Qty: 1 on 04/08/2023 by Fazal Ramirez MD at [facility] Left: Hip [employer] 11/03/2027 AR-7268 / / [id number] Explanted Type Area Optical Lab Technician Device Identifier Shelf Expiration Date Model / Serial / Lot Imp Stem Femoral Hip Strk Accolade Ii 132deg Sz 5 8776-7835 - [id number] Implanted:Qty: 1 on 03/25/2023 by Cj Chen MD at [facility] Explanted:Qty: 1 on 04/08/2023 by Fazal Ramirez MD at [facility] Total Joint Component /Insert Left: Hip [employer] 03/03/2027 6604-9441 / / [id number] Imp Head Femoral Strk Biolox Delta Ceramic 36mm +2.5mm - [id number] Implanted:Qty: 1 on 03/25/2023 by Cj Chen MD at [facility] Explanted:Qty: 1 on 04/08/2023 by Fazal Ramirez MD at [facility] Total Joint Component /Insert Left: Hip [employer] 12/07/2027 6570-0-536 / / [id number] 6.5 Mm Cannulated Screws, 16mm Thread Length 80mm Implanted:Qty: 3 on 01/25/2021 by Cj Chen MD at [facility] Explanted:Qty: 3 on 03/25/2023 by Cj Chen MD at [facility] Left: Hip SYNTHES 408.411 24 JAN 2021 Titanium Washer, 13.0 Mm Implanted:Qty: 3 on 01/25/2021 by Cj Chen MD at [facility] Explanted:Qty: 3 on 03/25/2023 by Cj Chen MD at [facility] Left: Hip SYNTHES 419.99 24 JAN 2021 8002 Procedures Procedure Name Priority Date/Time Associated Diagnosis Comments BASIC METABOLIC PANEL Routine 04/10/2023 7:07 AM CDT COLONOSCOPY - HIM SCAN 10/25/2022 12:00 AM YARDING AND FOLDING MACHINE OPERATOR from Last 3 Months or Most Recently [...] MD LAB - BLOOD ORDERABL ES LAB[facility]AT[facility] [address] Lab (1st floor, no room number) [place] [address], [facility] [phone] * COLONOSCOPY - HIM SCAN (10/25/2022 12:00 AM YARDING AND FOLDING MACHINE OPERATOR) 10/25/2022 Provider Outside PROCEDURES from Last 3 Months or Most Recently Relevant to Health Maintenance Additional Health Concerns Active Problems Noted Date Diagnosed Date Total Joint Replacement Hip Pathway 03/15/2023 Advance Directives For more information, please contact: [phone] * Full Code (Latest Code Status on [...] patie nt/ legal decision maker Care Teams Spar Machine Operator Relationship Specialty Start Date End Date Case Gao [address] [place] [id number] PCP - General Family Medicine 01/25/21
== END 2023-12-28 13:57 | disposition home or self-care (01) ==
LOC: WOUND 13:56
PROVIDERS: PCP Family Medicine; Visit Provider Surgery
DX: I87.2 Venous insufficiency (chronic) (peripheral) (principal); L97.812 Non-pressure chronic ulcer of other part of right lower leg with fat layer exposed; Z79.60 Long term (current) use of unspecified immunomodulators and immunosuppressants; M06.9 Rheumatoid arthritis, unspecified
CPT/HCPCS: 11042

== ENCOUNTER 2024-01-04 13:40 | Outpatient (CLI) | payer BC, SELFPAY | END 2024-01-04 13:41 | disposition home or self-care (01) | LOC: WOUND 13:40 | PROVIDERS: PCP Family Medicine; Visit Provider Surgery | DX: I87.2 Venous insufficiency (chronic) (peripheral) (principal); L97.818 Non-pressure chronic ulcer of other part of right lower leg with other specified severity; Z79.60 Long term (current) use of unspecified immunomodulators and immunosuppressants | CPT/HCPCS: 11042 ==

== ENCOUNTER 2024-01-13 07:49 | Outpatient (CLI) | payer BC, SELFPAY ==
--- OUTSIDE RECORDS SUMMARY | 2024-01-13 07:50 | XMS_ITS | Clinical Summary ---
Author Name Unknown Organization [facility] [employer] [facility] Address [address] [address] Phone Care Team Providers Care Recycling Manager Name Role Phone Unavailable Primary Care [...]
--- OUTSIDE RECORDS SUMMARY | 2024-01-13 07:50 | XMS_ITS | Clinical Summary ---
Author Name Unknown Organization [facility] Address [place], [place] [address] Care Team Providers Care Screw Machine Set Up Operator Tool Name Role Phone Case Gao MD Primary [...] 25 mg by mouth every Tuesday. Active hydrOXYchloroQUIN E (PlaqueniL) 200 mg tablet Take 400 mg by mouth once daily. Active oxyCODONE (ROXICODONE) 5 mg immediate release tabletIndications :Hip pain, left Take 1 Tablet (5 mg) by mouth every 6 hours if needed for Pain. 20 Tablet 03/21/2023 Active levETIRAcetam (KEPPRA) 500 mg tabletIndications :Altered mental status, unspecified altered mental status type TAKE 2 TABLETS TWICE A DAY 360 Tablet 3 04/22/2023 Active lisinopril-hydroc hlorothiazide (10-12.5 mg) tablet (PRINZIDE; ZESTORETIC)Indica tions:Essential hypertension TAKE 1 TABLET BY MOUTH EVERY DAY 90 Tablet 2 04/25/2023 Active venlafaxine (EFFEXOR) 75 mg tabletIndications :Depression, unspecified depression type Take 3 Tablets (225 mg) by mouth two times daily. 540 Tablet 2 01/06/2024 Active venlafaxine (EFFEXOR) 75 mg tabletIndications :Depression, unspecified depression type TAKE 3 TABLETS TWICE A DAY 540 Tablet 10/17/2023 4 Discontinu ed(*Medica tion adjustment ) venlafaxine (EFFEXOR XR) 150 mg Extended-Release capsuleIndication s:Depression, unspecified depression type Take 2 Capsules (300 mg) by mouth once daily with evening meal. 180 Capsule 10/20/2023 4 Discontinu ed(*Medica tion adjustment ) Active Problems Problem Noted Date Diagnosed Date [...] Date Diagnosed Date Resolved Date Breakthrough seizure 01/202301/19/202310/20/2023 Routine adult health maintenance 09/21/2013 03/31/2018 Overview: Colonoscopy 09/2013 normal repeat in 10 years Rheumatoid arthritis(714.0) 07/28/2012 10/20/2023 Anemia, unspecified 07/28/2012 10/23/19 20 Possible pulmonary alveolar hemorrhage 06/24/2012 10/23/2019 Hemoptysis 06/23/2012 10/23/2019 Left shoulder pain 04/21/2009 Bulimia Nervosa in supervisor intermediates remission, per patient report. 10/14/2008 01/27/2021 Obesity, unspecified 11/26/2006 014 Encounters Date Type Department Care Team Description 01/11/2024 Orders Only [facility] [address] [place] [address] Case Gao MD Outside Order (Ordered by Dr. Sarah Paez-... 01/06/2024 11:20 AM CDT Office Visit [facility] [address] [place] [address] Case Gao MD Medication Management (Effexor ) 01/06/2024 Travel 01/06/2024 Telephone [facility] [address] [place] [address] Case Gao MD Medication Management (CHANGE MEDICATION BACK ) 12/26/2023 Telephone [facility] [address] [place] [address] Case Gao MD Medication Management (venlafaxine (EFFEXOR XR) 150 mg Extended-Release capsule//) 11/15/2023 Telephone [facility] [address] [place] [address] Case Gao MD Questions 11/10/2023 Lab Requisition [facility] [phone] Vira Pepe MD 11/03/2023 Telephone [facility] [address] [place] [address] Case Gao MD Questions (UPDATE ON DISABILITY FORMS) 10/27/2023 7:45 AM ELECTRICAL MAINTENANCE SUPERVISOR Orders Only [facility] [address] [facility] [address] [facility] [place]; Outside Order (Ordered by Sarah Paez... 10/27/2023 Travel 10/20/2023 4:10 PM ELECTRICAL MAINTENANCE SUPERVISOR Office Visit [facility] [address] [place] [address] Case Gao MD Medication Management 10/20/2023 Travel 10/18/2023 Orders Only [facility] [address] [facility] [address] Case Gao MD Outside Order (Ordered by Sarah Hilton) 10/17/2023 Telephone [facility] [address] [facility] [address] Case Gao MD Medication Management (venlafaxine (EFFEXOR) [...] Sign Reading Time Taken Comments Blood Pressure 111/67 01/06/2024 11:16 AM CDT Pulse 80 01/06/2024 11:16 AM CDT Temperature 36.7 ??C (98.1 ??F) 04/13/2023 7:48 AM CD T Respiratory Rate 16 02/27/2022 11:58 AM CDT Oxygen Saturation 99% 01/06/2024 11:16 AM CDT Inhaled Oxygen Concentration - - Weight 92.1 kg (203 lb) 10/20/2023 3:51 PM ELECTRICAL MAINTENANCE SUPERVISOR Height 169.4 cm (5' 6.69) 03/21/2023 9:18 AM CD T Body Mass Index 32.09 03/21/2023 9:18 AM CDT Plan of Treatment Upcoming Encounters Date Type Department Care Team (Late st Contact Info) Description 01/18/2024 2:30 PM CDT Orders Only [facility] [address] [place] [address] Lab, [facility] Maintenance Due Date Last Done Comments [...] TRACKING EVENT Routine 11/09/2023 2: 17 PM ELECTRICAL MAINTENANCE SUPERVISOR PATH TISSUE EXAM Routine 11/09/2023 2:17 PM ELECTRICAL MAINTENANCE SUPERVISOR CBC WITH AUTO DIFFERENTIAL Routine 10/27/2023 7:49 AM ELECTRICAL MAINTENANCE SUPERVISOR Encounter for long-term (current) use of other medications Rheumatoid arthritis with rheumatoid factor 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 systems involvement (HC) CREATININE Routine 10/27/2023 7:49 AM ELECTRICAL MAINTENANCE SUPERVISOR Encounter for long-term (current) use of other medications Rheumatoid arthritis with rheumatoid factor 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 systems involvement (HC) CBC WITH AUTO DIFFERENTIAL Routine 10/27/2023 7:49 AM ELECTRICAL MAINTENANCE SUPERVISOR Encounter for long-term (current) use of other medications Rheumatoid arthritis with rheumatoid factor 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 systems involvement (HC) AST (SGOT) Routine 10/27/2023 7:49 AM ELECTRICAL MAINTENANCE SUPERVISOR Encounter for long-term (current) use of other medications Rheumatoid arthritis with rheumatoid factor 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 systems involvement (HC) ALT (SGPT) Routine 10/27/2023 7:49 AM ELECTRICAL MAINTENANCE SUPERVISOR Encounter for long-term (current) use of other medications Rheumatoid arthritis with rheumatoid factor 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 systems involvement (HC) ALBUMIN Routine 10/27/2023 7:49 AM ELECTRICAL MAINTENANCE SUPERVISOR Encounter for long-term (current) use of other medications Rheumatoid arthritis with rheumatoid factor 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 systems involvement (HC) LIPID PANEL W REFLEX MEASURED LDL Routine 11/14/2020 7:56 AM ELECTRICAL MAINTENANCE SUPERVISOR Hyperlipidemia, unspecified hyperlipidemia type OCCULT BLOOD IFOBT STOOL Routine 11/16/2019 10:00 AM CDT Screening for colon cancer IMPORT/EXPORT SPECIALIST THIN PREP PAP SCREEN IMAGED Routine 12/25/2018 [...] * LAB TRACKING EVENT (11/09/2023 2:17 PM ELECTRICAL MAINTENANCE SUPERVISOR) Other (Other) Client Collect / Unknown 11/09/2023 2:17 PM ELECTRICAL MAINTENANCE SUPERVISOR 11/10/2023 1:31 PM ELECTRICAL MAINTENANCE SUPERVISOR Vira Pepe MD LAB BILL ONLY [facility] [address] [place] [address], [place] * PATH TISSUE EXAM (11/09/2023 2:17 PM ELECTRICAL MAINTENANCE SUPERVISOR) Case Report Pathology Report ?Case: [id number] ? Authorizing Provider: ??Vira Pepe MD ??Collected: ? 11/09/2023 1417 ? Ordering Location: ? [facility] ?Received: ?11/10/2023 1542 ? Pathologist: ? Ed Marie MD ? Specimen: ?Right Leg ? 11/11/2023 4:09 PM ELECTRICAL MAINTENANCE SUPERVISOR [facility] Final Diagnosis A) SKIN, RIGHT LEG, BIOPSIES: 1. Cutaneous ulceration, see comment 2. No evidence of malignancy 11/11/2023 4:09 PM ELECTRICAL MAINTENANCE SUPERVISOR [facility] Comment A) The differential diagnosis includes the various causes of lower extremity ulceration including venous stasis, peripheral arterial disease, neuropathic, traumatic, infection, and coagulopathic. Within the appropriate clinical setting, if the aforementioned causes are ruled-out with appropriate studies and tissue cultures, these findings can be seen in a chronic ulcer related pyoderma gangrenosum. 11/11/2023 4:09 PM ELECTRICAL MAINTENANCE SUPERVISOR [facility] Clinical Information Patient with rheumatoid arthritis on methotrexate. Right lower leg with non-healing chronic wound since June 2023, assess for pyoderma gangrenosum. 11/11/2023 4:09 PM ELECTRICAL MAINTENANCE SUPERVISOR [facility] Gross Description A) Received in [...] 2. Skin punch #2, inked green, bisected TLF 11/10/2023 11/11/2023 4:09 PM ELECTRICAL MAINTENANCE SUPERVISOR [facility] Microscopic Description The final diagnosis is [...] confirmed on tissue sections. 11/11/2023 4:09 PM ELECTRICAL MAINTENANCE SUPERVISOR [facility] Additional Information Interpreted at [facility] [place] [facility] - [address], [place] [address] 11/11/2023 4:09 PM ELECTRICAL MAINTENANCE SUPERVISOR [facility] Other (Right Leg) 11/09/2023 2:17 PM ELECTRICAL MAINTENANCE SUPERVISOR 11/10/2023 3:42 PM ELECTRICAL MAINTENANCE SUPERVISOR Vira Pepe MD PATHOLOGY/CY[facility]OLO GY [facility] [address] [place] [address], * CBC WITH AUTO DIFFERENTIAL (10/27/2023 7:49 AM ELECTRICAL MAINTENANCE SUPERVISOR) WHITE BLOOD COUNT 4.8 4.5 - 11.0 thou/cu mm 10/27/2023 7:53 AM [facility] RED BLOOD COUNT 4.39 4.00 - 5.20 mil/cu mm 10/27/2023 7:53 AM [facility] HEMOGLOBIN 13.2 12.0 - 16.0 g/dL 10/27/2023 7:53 AM [facility] HEMATOCRIT 39.2 33.0 - 51.0 % 10/27/2023 7:53 AM [facility] MCV 89 80 - 100 fL 10/27/2023 7:53 AM [facility] MCH 30.1 26.0 - 34.0 pg 10/27/2023 7:53 AM [facility] MCHC 33.7 32.0 - 36.0 g/dL 10/27/2023 7:53 AM [facility] RDW 13.7 11.5 - 15.5 % 10/27/2023 7:53 AM [facility] PLATELET COUNT 270 140 - 440 thou/cu mm 10/27/2023 7:53 AM [facility] MPV 8.9 6.5 - 11.0 fL 10/27/2023 7:53 AM [facility] % NEUT 63.3 % 10/27/2023 7:53 AM [facility] % LYMPH 27.5 % 10/27/2023 7:53 AM [facility] % MONO 7.5 % 10/27/2023 7:53 AM [facility] % EOS 1.7 % 10/27/2023 7:53 AM [facility] % BASO 0.0 % 10/27/2023 7:53 AM [facility] ABSOLUTE NEUTROPHILS 3.1 1.7 - 7.0 thou/cu mm 10/27/2023 7:53 AM [facility] ABSOLUTE LYMPHOCYTES 1.3 0.9 - 2.9 thou/cu mm 10/27/2023 7:53 AM [facility] ABSOLUTE MONOCYTES 0.4 <0.9 thou/cu mm 10/27/2023 7:53 AM ELECTRICAL MAINTENANCE SUPERVISOR [facility] ABSOLUTE EOSINOPHILS 0.1 <0.5 thou/cu mm 10/27/2023 7:53 AM ELECTRICAL MAINTENANCE SUPERVISOR [facility] ABSOLUTE BASOPHILS 0.0 <0.3 thou/cu mm 10/27/2023 7:53 AM ELECTRICAL MAINTENANCE SUPERVISOR [facility] Blood BLOOD SPECIMEN / Unknown Venipuncture / Unknown 10/27/2023 7:49 AM ELECTRICAL MAINTENANCE SUPERVISOR 10/27/2023 7:49 AM ELECTRICAL MAINTENANCE SUPERVISOR Narrative [facility] - 10/27/2023 7:53 AM ELECTRICAL MAINTENANCE SUPERVISOR This testing was ordered by an outside provider. The provider who placed this order has reviewed and approved it for completion by the lab, but is not involved in this patient's care related to the ordering of this lab. The lab will provide the testing results for Albumin, ALT, AST, CDF and Creat, to the outside ordering provider, Sarah Kang at fax number [phone], for that provider to inform and arrange appropriate follow up with the patient. Linda Fritz FINISHER POLISHER (ASCP).................... ??10/18/2023 ?? 10:15 AM Case Gao MD HEMATOLOGY [facility] [address] [place] [address], * (ABNORMAL) CREATININE (10/27/2023 7:49 AM ELECTRICAL MAINTENANCE SUPERVISOR) eGFR 85(L) >90 mL/min/1.7 3m2 10/27/2023 1:48 PM ELECTRICAL MAINTENANCE SUPERVISOR [facility] Comment:As of 2021, eG FR is calculated by the CKD-EPI creatinine equation without race adjustment. ??eGFR can be influenced by muscle mass, exercise, and diet. ??The reported eGFR is an estimation only and is only applicable if the renal function is stable. CREATININE 0.79 0.50 - 0.90 mg/dL 10/27/2023 1:48 PM ELECTRICAL MAINTENANCE SUPERVISOR [facility] Blood BLOOD SPECIMEN / Unknown Venipuncture / Unknown 10/27/2023 7:49 AM ELECTRICAL MAINTENANCE SUPERVISOR 10/27/2023 7:49 AM ELECTRICAL MAINTENANCE SUPERVISOR Case Gao MD CHEMISTRY Performing Organization Address [facility] Co de Phone Number [facility] [address] [address], [place] * ALT (SGPT) (10/27/2023 7:49 AM ELECTRICAL MAINTENANCE SUPERVISOR) ALT (SGPT) 21 10 - 35 IU/L 10/27/2023 1:48 PM ELECTRICAL MAINTENANCE SUPERVISOR [facility] Blood BLOOD SPECIMEN / Unknown Venipuncture / Unknown 10/27/2023 7:49 AM ELECTRICAL MAINTENANCE SUPERVISOR 10/27/2023 7:49 AM ELECTRICAL MAINTENANCE SUPERVISOR Case Gao MD CHEMISTRY Performing Organization Address [facility] Co de Phone Number [facility] [address] [place], [place] [id number], [place] * AST (SGOT) (10/27/2023 7:49 AM ELECTRICAL MAINTENANCE SUPERVISOR) AST (SGOT) 17 10 - 35 IU/L 10/27/2023 1:48 PM ELECTRICAL MAINTENANCE SUPERVISOR [facility] Blood BLOOD SPECIMEN / Unknown Venipuncture / Unknown 10/27/2023 7:49 AM ELECTRICAL MAINTENANCE SUPERVISOR 10/27/2023 7:49 AM ELECTRICAL MAINTENANCE SUPERVISOR Case Gao MD CHEMISTRY Performing Organization Address [facility] Co de Phone Number [facility] [address] [address], [place] * ALBUMIN (10/27/2023 7:49 AM ELECTRICAL MAINTENANCE SUPERVISOR) ALBUMIN 4.2 4.0 - 4.9 g/dL 10/27/2023 1:48 PM ELECTRICAL MAINTENANCE SUPERVISOR [facility] Blood BLOOD SPECIMEN / Unknown Venipuncture / Unknown 10/27/2023 7:49 AM ELECTRICAL MAINTENANCE SUPERVISOR 10/27/2023 7:49 AM ELECTRICAL MAINTENANCE SUPERVISOR Case Gao MD CHEMISTRY [facility] [address] [place] [address], * LIPID PANEL W REFLEX MEASURED LDL (11/14/2020 7:56 AM ELECTRICAL MAINTENANCE SUPERVISOR) CHOLESTEROL,TOTAL 189 100 - 199 mg/dL 11/14/2020 2:34 PM ELECTRICAL MAINTENANCE SUPERVISOR [facility] TRIGLYCERIDES 60 <150 mg/dL 11/14/2020 2:34 PM ELECTRICAL MAINTENANCE SUPERVISOR [facility] HDL CHOLESTEROL 94 >40 mg/dL 2:34 PM ELECTRICAL MAINTENANCE SUPERVISOR [facility] NON-HDL CHOLESTEROL 95 <145 mg/dl 11/14/2020 2:34 PM ELECTRICAL MAINTENANCE SUPERVISOR [facility] CHOL/HDL RATIO 2.01 <4.50 11/14/2020 2:34 PM ELECTRICAL MAINTENANCE SUPERVISOR [facility] LDL CHOLESTEROL 83 <=130 mg/dL 11/14/2020 2:34 PM ELECTRICAL MAINTENANCE SUPERVISOR [facility] PROVIDER ORDERED STATUS RANDOM 11/14/2020 2:34 PM ELECTRICAL MAINTENANCE SUPERVISOR [facility] Blood BLOOD SPECIMEN / Unknown Venipuncture / Unknown 11/14/2020 7:56 AM ELECTRICAL MAINTENANCE SUPERVISOR 11/14/2020 7:56 AM ELECTRICAL MAINTENANCE SUPERVISOR Case Gao MD CHEMISTRY [facility] [address] [place] [address], * OCCULT BLOOD IFOBT STOOL (11/16/2019 10:00 AM CDT) STOOL BLOOD ,IFOBT Negative Negative 11/16/2019 1:26 PM CDT [facility] Stool STOOL SPECIMEN / Unknown Non-Blood / Unknown 11/16/2019 10:00 AM CDT 11/16/2019 1:17 PM CDT Case Gao MD LABORATORY [facility] [place] [address], * IMPORT/EXPORT SPECIALIST THIN PREP PAP SCREEN IMAGED (12/25/2018 5:05 PM CDT) Case Report Gynecologic Cytology Report ? Case: [id number] ? Authorizing Provider: ??Case Gao, ?? Collected: ? 12/25/2018 1705 ? MD ? Ordering Location: ? [facility] ?? Received: ?12/25/2018 1723 ? Clinic ? First Screen: ?Mitra Vallejo ? Specimen: ?IMPORT/EXPORT SPECIALIST ThinPrep Vial Screening, Cervical ? 01/04/2019 8:58 AM CDT [facility] INTERPRETATION/ RESULT NEGATIVE FOR INTRAEPITHELIAL LESION OR MALIGNANCY (NIL) (none) 01/04/2019 8:58 AM CDT [facility] IMEN ADEQUACY Satisfactory for evaluation Endocervical component present 01/04/2019 8:58 AM CDT [facility] HPV REQUEST HPV and PAP 01/04/2019 8:58 AM CDT [facility] Date of LMP unknown 01/04/2019 8:58 AM CDT [facility] Last Pap Date 09/19/14 01/04/2019 8:58 AM CDT [facility] Last Pap Result NIL 9 8:58 AM CDT [facility] Abnormal Pap or [place] Bx in last 5 years No 01/04/2019 8:58 AM CDT [facility] Menstrual Status Postmenopausal 01/04/2019 8:58 AM CDT [facility] [place] Bx Done Today No 01/04/2019 8:58 AM CDT [facility] Additional Information None given 01/04/2019 8:58 AM CDT [facility] Automated Review Successful 01/04/2019 8:58 AM CDT [facility] Comment:Specimen processed s uccessfully by automated supervisor gluing device, ThinPrep Imaging System, [employer] ANCILLARY TESTING IMPORT/EXPORT SPECIALIST HPV Ordered, Please see separate report 01/04/2019 8:58 AM CDT [facility] Note The pap test is a [...] lesions. Cytology is screened and interpreted at [facility] - [address], [place] [address] and [facility] - [address] [place] [address]; [place] [address] and [facility] - [address]; [place] [address] and [facility] [address]; [place] [address] 01/04/2019 8:58 AM CDT [facility] Other (Cervical) Non-Blood / Unknown 12/25/2018 5:05 PM CDT 12/25/2018 5:23 PM CDT Case Gao MD PATHOLOGY/CYTO LOGY [facility] [address] [place] [address], [place] * XR MAMMO BILAT SCREENING (12/04/2018 11:12 AM CDT) Anatomical Region Laterality Modality BREASTS, Breast Left, Breast Right Bilateral Mammography Impressions 12/04/2018 12:26 PM CDT ??There is no radiographic evidence for malignancy. ??Recommend annual mammograms. A lay language report of this examination will be provided to the patient. MAMMOGRAM ASSESSMENT: ??ACR 2 Benign Narrative 12/04/2018 12:26 PM CDT XR MAMMO BILAT SCREENING [[id number]] CLINICAL HISTORY: ??This is an asymptomatic 58 y.o. patient. INDICATION FOR EXAM: Mammogram Screening. TECHNIQUE: CC & MLO views were obtained. ??This digital study was evaluated with the assistance of Computer-Aided Detection. COMPARISON FILMS: Yes 03/31/10 [facility] [place] [facility] 01/28/16 [facility] [place] [facility] FINDINGS: ??Mammographically, the breast tissue has scattered fibroglandular densities. ??No suspicious masses or microcalcifications. ?? Benign appearing calcifications within both breasts, Benign appearing mass(es) within right breast and Benign appearing asymmetry within right breast. Case Gao MD MAMMO * ANTI HCV (03/31/2017 10:07 AM CDT) HEPATITIS C ANTIBODY Non-Reacti ve Non-Reacti ve 03/31/2017 4:31 PM CDT [facility] Blood BLOOD SPECIMEN / Unknown Venipuncture / Unknown 03/31/2017 10:07 AM CDT 03/31/2017 10:07 AM CDT Narrative [facility] - 03/31/2017 4:31 PM CDT Antibodies to HCV not detected; does not exclude the possibility of exposure to HCV. Case Gao MD SEND OUTS [facility] [address] [place] [address], from Last 3 Months or Most Recently Relevant to Health Maintenance Advance Directives * Full Code (Latest Code Status on File) Date Activated Date Inactivated Comments 02/26/2022 3:57 AM 02/27/2022 3:25 PM Question Answer Comments Code Status Discussion: Reviewed Preferences * Full Code Date Activated Date Inactivated Comments 06/23/2012 5:55 PM 06/24/2012 4:41 PM Care Teams Screw Machine Set Up Operator Tool Relationship Specialty Start Date End Date Case Gao MD [address] [place] [address] PCP - General 11/28/06
--- OUTSIDE RECORDS SUMMARY | 2024-01-13 07:51 | XMS_ITS | Clinical Summary ---
Author Name Unknown Organization [facility] Address [address] [place] [id number] Care Team Providers Care [employer]led [employer] Operator Name Role Phone Case Gao Primary Care Provider [phone] Allergies Active Allergy Reactions Criticality Noted Date [...] 60+) (1 - 1-dose 60+ series) 2021 PHQ-2 (once per calendar year) 2023 INFLUENZA VACCINE (Season Ended) 2024 06/24/2020, 06/14/2019, 05/24/2018, Additional history exists GLUCOSE 04/10/2026 04/10/2023, 08/0 02/2023, 04/09/2023, Additional [...] [employer] Implanted Type Area Screen Printing Stencil Preparer Device Identifier Shelf Expiration Date Model / Serial / Lot Insert Actb 42mm 28mm E Hip X3 Adm Strl Lf Mdm 7236-2-848 - [id number] Implanted:Qty: 1 on 04/08/2023 by Fazal Ramirez MD at [facility] Metallic Hardware/An chor Left: Hip [employer]W [employer] [id number] 10/07/2027 7236-2-8 48 / / [id number] Trident Ii Tritanium Clusterhole 52e - [id number] Implanted:Qty: 1 on 03/25/2023 by Cj Chen MD at [facility] Total Joint Component/I nsert Left: Hip [employer] 12/29/2027 702-04-5 2E / / [id number] A Insert El 36mm 0deg X3 723-00-36e - [id number] Implanted:Qty: 1 on 03/25/2023 by Cj Chen MD at [facility] Total Joint Component/I nsert Left: Hip [employer]THEW [employer] 12/24/2027 723-00-3 6E / / [id number] Imp Stem Fem Rstrtn Mod Bowed Conical 77g823gr 6276-7-219 - [id number] Implanted:Qty: 1 on 04/08/2023 by Fazal Ramirez MD at [facility] Total Joint Component/I nsert Left: Hip MATTHEW [employer] It [id number] 02/14/2027 6276-7-2 19 / / [id number] Imp Insert Acet Strk Mdm Cocr Hip 0deg 42mm Sz E 626-00-42e - [id number] Implanted:Qty: 1 on 04/08/2023 by Fazal Ramirez MD at [facility] Total Joint Component/I nsert Left: Hip [employer]W [employer] It [id number] 01/13/2028 626-00-4 2E / / [id number] Imp Stem Fem Mod Rev Hip Prox Body/[place] 19mm +10 6276-1-119 - [id number] Implanted:Qty: 1 on 04/08/2023 by Fazal Ramirez MD at [facility] Total Joint Component/I nsert Left: Hip [employer] [id number] 08/15/2024 6276-1-1 [id number] Imp Head Femoral Strk Biolox Delta Ceramic 28mm +4mm - [id number] Implanted:Qty: 1 on 04/08/2023 by Fazal Ramirez MD at [facility] Total Joint Component/I nsert Left: Hip [employer] [id number] 10/31/2027 6570-0-2 28 / / [id number] Fibertape Cerclage, 2mm, 48 Implanted:Qty: 3 on 04/08/2023 by Fazal Ramirez MD at [facility] Left: Hip ARTHREX 06/04/2027 AR-7268 / / [id number] Fibertape Cerclage, 2mm, 48 Implanted:Qty: 1 on 04/08/2023 by Fazal Ramirez MD at [facility] Left: Hip ARTHREX 01/03/2028 AR-7268 / [id number] / Fibertape Cerclage, 2mm, 48 Implanted:Qty: 1 on 04/08/2023 by aFzal Ramirez MD at [facility] Left: Hip [employer] 11/03/2027 AR-7268 / / [id number] Explanted Type Area Screen Printing Stencil Preparer Device Identifier Shelf Expiration Date Model / Serial / Lot Imp Stem Femoral Hip Strk Accolade Ii 132deg Sz 5 6147-2339 - [id number] Implanted:Qty: 1 on 03/25/2023 by Cj Chen MD at [facility] Explanted:Qty: 1 on 04/08/2023 by Fazal Ramirez MD at [facility] Total Joint Component /Insert Left: Hip [employer] 03/03/2027 9689-1864 / / [id number] Imp Head Femoral Strk Biolox Delta Ceramic 36mm +2.5mm - [id number] Implanted:Qty: 1 on 03/25/2023 by Cj Chen MD at [facility] Explanted:Qty: 1 on 04/08/2023 by Fazal Ramirez MD at [facility] Total Joint Component /Insert Left: Hip [employer] 12/07/2027 6570-0-536 / / [id number] 6.5 Mm Cannulated Screws, 16mm Thread Length 80mm Implanted:Qty: 3 on 01/25/2021 by Cj Chen MD at [facility] Explanted:Qty: 3 on 03/25/2023 by Cj Chen MD at [facility] Left: Hip SYNTHES 408.411 24 JAN 2021 Titanium Washer, 13.0 Mm Implanted:Qty: 3 on 01/25/2021 by Cj Chen MD at [facility] Explanted:Qty: 3 on 03/25/2023 by Cj Chen MD at [facility] Left: Hip SYNTHES 419.99 24 JAN 2021 8002 Procedures Procedure Name Priority Date/Time Associated Diagnosis Comments BASIC METABOLIC PANEL Routine 04/10/2023 7:07 AM CDT COLONOSCOPY - HIM SCAN 10/25/2022 12:00 AM TOP LIFT SCOURER from Last 3 Months or Most Recently [...] MD LAB - BLOOD ORDERABL ES LABORATORY [facility] [address] Lab (1st floor, no room number) [place] [address] [phone] * COLONOSCOPY - HIM SCAN (10/25/2022 12:00 AM TOP LIFT SCOURER) 10/25/2022 Provider Outside PROCEDURES from Last 3 Months or Most Recently Relevant to Health Maintenance Additional Health Concerns Active Problems Noted Date Diagnosed Date Total Joint Replacement Hip Pathway 03/15/2023 Advance Directives For more information, please contact: [phone] * Full Code (Latest Code Status on [...] carmen nt/ legal decision maker Care Teams [employer] Operator Relationship Specialty Start Date End Date Case Gao [address] [place] [address] PCP - General Family Medicine 01/25/21
--- OUTSIDE RECORDS SUMMARY | 2024-01-13 07:51 | XMS_ITS | Continuity of Care Document ---
Author Name Unknown Organization [facility] Address [address] [place] [address] Phone Care Team Providers Care Self Propelled Dredge Operator Name Role Phone Sarah Rowan DO Unavailable [...] take 3 tablets twice daily - Active Procedures Procedure Date Office/Outpatient Visit, [...] Of Hand 2v Specimen Handling Office/Outpatient Visit, [facility] Routine Venipuncture Specimen Handling CReactive Protein Complete [...] Consultants , [address], [place], [address], [place] tel:[phone] [facility] , No Information 4 Philippe Smith. [address], [place], [address], [place]. tel:[phone] [facility] , [address], [place], [address], [place] tel:[phone] [facility] No Information 4 Skrama Smith. [address], [place], [address], [place]. tel:[phone] [facility] , [address], [place], [address], [place] tel:[phone] [facility] , No Information 4 Philippe Smith. [address], [place], [address], [place]. tel:[phone] Office/Outpa tient Visit, Est [facility] , [address], [place], [address], [place] tel:[phone] [facility] , Rheumatoid arthritis with rheumatoid factor 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 systems involvementO ther neurourologist (current) drug therapy 4 Skrama Smith. [address], [place], [address], [place]. tel:[phone] Referring Provider: Sarah Eppersno, [address], [place], [address]. tel:[phone] [facility] , [address], [place], [address], [place] tel:[phone] [facility] , No Information 3 Philippe Smith. [address], [place], [address], [place]. tel:[phone] Office/Outpa tient Visit, Est [facility] , [address], [place], [address], [place] tel:[phone] [facility] , Rheumatoid arthritis (chief complaint)Mo nitor Chronic High Risk Meds (chief complaint) RA w/ rheumatoid factor of multiple sites w/o organ involvementO ther intermediate (current) drug therapyOther dorsalgia 3 María Denis. [facility] [address], [place], [address], [place]. tel:[phone] , [facility] [address], [place], [address].Refer ring Provider: Adeel Daniel W, [facility] [address], [place], [address]. tel:[phone] [facility] , [address], [place], [address], [place] tel:[phone] [facility] No Information 2 María Denis. [facility] [address], [place], [address], [place]. tel:[phone] Office/Outpa tient Visit, Est [facility] , [address], [place], [address], [place] tel:[phone] [facility] , Rheumatoid arthritis (chief complaint)Mo nitor Chronic High Risk Meds (chief complaint) RA w/ rheumatoid factor of multiple sites w/o organ involvementO ther intermediate (current) drug therapy 2 María Denis. [facility] [address], [place], [address], [place]. tel:[phone] , [facility] [address], [place], [address].Refer ring Provider: Adeel Tang, [facility] [address], [place], [address]. tel:[phone] [facility] , [address], [place], [address], [place] tel:[phone] [facility] , No Information 2 María Denis. [facility] [address], [place], [address], [place]. tel:[phone] Referring Provider: Adeel Tang, [facility] [address], [place], [address]. tel:[phone] Office/Outpa tient Visit, Est [facility] , [address], [place], [address], [place] tel:[phone] [facility] , Rheumatoid arthritis (chief complaint)Mo nitor Chronic High Risk Meds (chief complaint) RA w/ rheumatoid factor of multiple sites w/o organ involvementO ther neurourologist (current) drug therapy 1 María Denis. [facility] [address], [place], [address], [place]. tel:[phone] , [facility] [address], [place], [address].Refer ring Provider: Adeel Tang, [facility] [address], [place], [address]. tel:[phone] Office/Outpa tient Visit, Est [facility] , [address], [place], [address], [place] tel:[phone] [facility] , Rheumatoid arthritis (chief complaint)Mo nitor Chronic High Risk Meds (chief complaint) AnxietyRA w/ rheumatoid factor of multiple sites w/o organ involvementO ther intermediate (current) drug therapy 0 María Denis. [facility] [address], [place], [address], [place]. tel:[phone] , [facility] [address] [place] [address] [address], [place], [address].Refer ring Provider: Adeel Tang, [facility] [address], [place], [address]. tel:[phone] Office/Outpa tient Visit, Est [facility] , [address], [place], [address], [place] tel:[phone] [facility] , Rheumatoid arthritis (chief complaint)Mo nitor Chronic High Risk Meds (chief complaint) AnxietyRA w/ rheumatoid factor of multiple sites w/o organ involvementO ther intermediate (current) drug therapy 0 María Denis. [facility] [address], [place], [address], [place]. tel:[phone] , [facility] [address], [place], [address].Refer ring Provider: Adeel Tang, [facility] [address], [place], [address]. tel:[phone] Office/Outpa tient Visit, Est [facility] , [address], [place], [address], [place] tel:[phone] [facility] , Rheumatoid arthritis (chief complaint)Mo nitor Chronic High Risk Meds (chief complaint) AnxietyRA w/ rheumatoid factor of multiple sites w/o organ involvementO ther intermediate (current) drug therapy María Denis. [facility] [address], [place], [address], [place]. tel:[phone] , [address], [place], [address].Refer ring Provider: Adeel Tang, [facility] [address], [place], [address]. tel:[phone] Office/Outpa tient Visit, Est [facility] , [address], [place], [address], [place] tel:[phone] [facility] , Rheumatoid arthritis (chief complaint)Mo nitor Chronic High Risk Meds (chief complaint) AnxietyRA w/ rheumatoid factor of multiple sites w/o organ involvementO ther intermediate (current) drug therapy María Denis. [facility] [address], [place], [address], [place]. tel:[phone] , [address], [place], [address].Refer ring Provider: Adeel Tang, [facility] [address], [place], [address]. tel:[phone] Office/Outpa tient Visit, Est [facility] , [address], [place], [address], [place] tel:[phone] [facility] , Rheumatoid arthritis (chief complaint)Mo nitor Chronic High Risk Meds (chief complaint) RA w/ rheumatoid factor of multiple sites w/o organ involvementO ther neurourologist (current) drug therapyAnxie ty Nov-0 9-201 8 María Denis. [facility] [address], [place], [address], [place]. tel:[phone] Specialist: Tim Carrasquillo, [facility] [address] [place] [address] [address], [place], [address]. tel:[phone] ring Provider: Adeel Tang, [facility] [address], [place], [address]. tel:[phone] Office/Outpa tient Visit, Est [facility] , [address], [place], [address], [place] tel:[phone] [facility] , Rheumatoid arthritis (chief complaint)Mo nitor Chronic High Risk Meds (chief complaint) RA w/ rheumatoid factor of multiple sites w/o organ involvementO ther neurourologist (current) drug therapy -201 7 María Denis. [facility] [address], [place], [address], [place]. tel:[phone] Specialist: Tim Carrasquillo, [facility] [address] [place] [address] [address], [place], [address]. tel:[phone] ring Provider: Adeel Tang, [facility] [address], [place], [address]. tel:[phone] [facility] , [address], [place], [address], [place] tel:[phone] [facility] , Rheumatoid arthritis (chief complaint)Mo nitor Chronic High Risk Meds (chief complaint) RA w/ rheumatoid factor of multiple sites w/o organ involvementO ther intermediate (current) drug therapyPain in right shoulder María Denis. [facility] [address], [place], [address], [place]. tel:[phone] Specialist: Tim Carrasquillo, [address], [place], [address]. tel:[phone] ring Provider: Adeel Tang, [facility] [address], [place], [address]. tel:[phone] Office/Outpa tient Visit, Est [facility] , [address], [place], [address], [place] tel:[phone] [facility] , Rheumatoid arthritis (chief complaint)Mo nitor Chronic High Risk Meds (chief complaint) RA w/ rheumatoid factor of multiple sites w/o organ involvementO ther intermediate (current) drug therapy 6 María Denis. [facility] [address], [place], [address], [place]. tel:[phone] Specialist: Tim Carrasquillo, [address], [place], [address]. tel:[phone] ring Provider: Adeel Tang, [facility] [address], [place], [address]. tel:[phone] Office/Outpa tient Visit, Est [facility] , [address], [place], [address], [place] tel:[phone] [facility] , Rheumatoid arthritis (chief complaint)Mo nitor Chronic High Risk Meds (chief complaint) RA w/ rheumatoid factor of multiple sites w/o organ involvementO ther neurourologist (current) drug therapyShoul velasquez joint pain 5 María Denis. [facility] [address], [place], [address], [place]. tel:[phone] Specialist: Tim Carrasquillo, [address], [place], [address]. tel:[phone] [facility] Provider: Adeel Tang, [facility] [address], [place], [address]. tel:[phone] Office/Outpa tient Visit, Est [facility] , [address], [place], [address], [place] tel:[phone] [facility] , Rheumatoid arthritis (chief complaint)Mo nitor Chronic High Risk Meds (chief complaint) Rheumatoid arthritisThe rapeutic Drug MonitoringFi nger joint contracture María Denis. [facility] [address], [place], [address], [place]. tel:[phone] Specialist: Tim Carrasquillo, [address], [place], [address]. tel:[phone] [facility] Provider: Adeel Tang, [facility] [address], [place], [address]. tel:[phone] Office/Outpa tient Visit, Est [facility] , [address], [place], [address], [place] tel:[phone] [facility] , Rheumatoid Arthritis (chief complaint) Rheumatoid ArthritisThe rapeutic Drug MonitoringPa in in joint involving lower leg 4 María Denis. [facility] [address], [place], [address], [place]. tel:[phone] Specialist: Tim Carrasquillo, [facility] [address], [place], [address]. tel:[phone] ring Provider: Adeel Tang, [facility] [address], [place], [address]. tel:[phone] Office/Outpa tient Visit, Est [facility] , [address], [place], [address], [place] tel:[phone] [facility] , Rheumatoid Arthritis (chief complaint) Rheumatoid ArthritisThe rapeutic Drug MonitoringPa in in joint involving lower legPain in joint involving shoulder regionUnspec ified disorder of skin and subcutaneous tissue María Denis. [facility] [address], [place], [address], [place]. tel:[phone] Specialist: Tim Carrasquillo, [facility] [address] [place] [address] [address], [place], [address]. tel:[phone] [facility] Provider: Adeel Tang, [facility] [address], [place], [address]. tel:[phone] Office/Outpa tient Visit, Est [facility] , [address], [place], [address], [place] tel:[phone] [facility] , Rheumatoid Arthritis (chief complaint) Rheumatoid ArthritisThe rapeutic Drug MonitoringPa in in joint involving shoulder region 4 María Denis. [facility] [address], [place], [address], [place]. tel:[phone] Specialist: Tim aCrrasquillo, [facility] [address], [place], [address]. tel:[phone] ring Provider: Adeel Tang, [facility] [address], [place], [address]. tel:[phone] Office/Outpa tient Visit, Est [facility] , [address], [place], [address], [place] tel:[phone] [facility] , Rheumatoid Arthritis (chief complaint) Rheumatoid ArthritisThe rapeutic Drug MonitoringLO NG-TERM (CURRENT) USE OF STEROIDS 3 María Denis. [facility] [address], [place], [address], [place]. tel:[phone] Specialist: Tim Carrasquillo, [facility] [address] [place] [address] [address], [place], [address]. tel:[phone] ring Provider: Adeel Tang, [facility] [address], [place], [address]. tel:[phone] Office/Outpa tient Visit, Est [facility] , [address], [place], [address], [place] tel:[phone] [facility] , Rheumatoid Arthritis (chief complaint) Rheumatoid ArthritisThe rapeutic Drug MonitoringLO NG-TERM (CURRENT) USE OF STEROIDSCoug h 3 María Denis. [facility] [address], [place], [address], [place]. tel:[phone] Specialist: Tim Carrasquillo, [facility] [address], [place], [address]. tel:[phone] ring Provider: Adeel Tang, [facility] [address], [place], [address]. tel:[phone] Office/Outpa tient Visit, Est [facility] , [address], [place], [address], [place] tel:[phone] [facility] , Rheumatoid Arthritis (chief complaint) Rheumatoid ArthritisThe rapeutic Drug MonitoringLO NG-TERM (CURRENT) USE OF STEROIDS 3 María Denis. [facility] [address], [place], [address], [place]. tel:[phone] Specialist: Tim Carrasquillo, [facility] [address] [place] [address] [address], [place], [address]. tel:[phone] ring Provider: Adeel Tang, [facility] [address], [place], [address]. tel:[phone] Office/Outpa tient Visit, Est [facility] , [address], [place], [address], [place] tel:[phone] [facility] , Rheumatoid Arthritis (chief complaint) Rheumatoid ArthritisThe rapeutic Drug MonitoringUl cer of ankle 3 María Denis. [facility] [address], [place], [address], [place]. tel:[phone] Specialist: Tim Carrasquillo, [address], [place], [address]. tel:[phone] ring Provider: Adeel Tang, [facility] [address], [place], [address]. tel:[phone] Office/Outpa tient Visit, Est [facility] , [address], [place], [address], [place] tel:[phone] [facility] , Rheumatoid Arthritis (chief complaint) Rheumatoid ArthritisThe rapeutic Drug MonitoringLO NG-TERM (CURRENT) USE OF STEROIDS Dec-0 7-201 2 María Denis. [facility] [address], [place], [address], [place]. tel:[phone] Specialist: Tim Carrasquillo, [facility] [address] [place] [address] [address], [place], [address]. tel:[phone] ring Provider: Adeel Tang, [facility] [address], [place], [address]. tel:[phone] Office/Outpa tient Visit, Est [facility] , [address], [place], [address], [place] tel:[phone] [facility] , Rheumatoid Arthritis (chief complaint) Rheumatoid ArthritisLON G-TERM (CURRENT) USE OF STEROIDS Nov-0 2-201 2 María Adeel. [facility] [address], [place], [address], [place]. tel:[phone] Specialist: Tim Carrasquillo, [facility] [address] [place] [address] [address], [place], [address]. tel:[phone] ring Provider: Adeel Tang, [facility] [address], [place], [address]. tel:[phone] Office/Outpa tient Visit, New [facility] , [address], [place], [address], [place] tel:[phone] [facility] , Pulmonary infiltrates (chief complaint) Unspecified inflammatory polyarthropa thyLONG-TERM (CURRENT) USE OF STEROIDS Oct-2 9-201 2 María Denis. [facility] [address], [place], [address], [place]. tel:[phone] Specialist: Tim Carrasquillo, [facility] [address], [place], [address]. tel:[phone] ring Provider: Adeel Tang, [facility] , P.AJose Elias [address], [place], [address]. tel:[phone] Family History Family Member Type Diagnosis Age At Onset Sister Problem (finding) malignant neoplasm of o vary Father Problem (finding) cancer of colon Immunizations Vaccine Date Status Comments COVID-19 [employer] administered S ource: Other Provider Payers Payer name Insurance type Covered green party ID Authorizradha rogers(s) [facility] [id number] Social History Type Description Quantity Date Captured [...] safety monitoring ophthalmologic evaluation. Related to Other neurourologist (current) drug therapy Continue hydroxychlo roquine 400 [...] safety monitoring ophthalmologic evaluation. Related to Other neurourologist (current) drug therapy Continue hydroxychlo roquine 400 [...] safety monitoring ophthalmologic evaluation. Related to Other intermediate (current) drug therapy Continue hydroxychlo roquine 400 [...] safety monitoring ophthalmologic evaluation. Related to Other intermediate (current) drug therapy Continue hydroxychlo roquine 400 [...] performed every 3 months. Related to Other intermediate (current) drug therapy Continue current ant i-rheumatic medications unchanged.I will consider PFT and potential update of chest imaging. 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 Related to Other intermediate (current) drug therapy Continue input as ne eded with her primary care provider or psychologist/psychiatrist. Related to Anxiety I again urged ruel katz to update evaluation with her primary care provider or a psychologist/psychiatrist. Related to Anxiety The patient will hav e CBC, Cr, transaminases and albumin performed every 3 months. Related to Other neurourologist (current) drug therapy Continue current ant i-rheumatic [...] chest imaging.The patient may be moving to [facility] if her gets the new job that they anticipate. 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 Related to Other neurourologist (current) drug therapy The patient will hav e CBC, Cr, transaminases and albumin performed every 3 months. Related to Other neurourologist (current) drug therapy Continue current ant i-rheumatic medications unchanged.The patient may be moving to [facility] if her gets the new job that they anticipate. Related to RA w/ rheumatoid factor of multiple sites w/o organ involvement I encouraged the pat iesherman to pursue therapy to the shoulder, which she prefers to do initially through her chiropractor, perhaps with deep tissue massage. Related to Pain in right shoulder The patient will hav e CBC, Cr, transaminases and albumin performed every 3 months. Related to Other intermediate (current) drug therapy Continue current ant i-rheumatic [...] performed every 3 months. Related to Other neurourologist (current) drug therapy After discussion of potential treatment options, risks and benefits, the patient and I are in agreement with pursuing local corticosteroid injection. Related to Shoulder joint pain The patient will hav e CBC, Cr, transaminases and albumin performed every 2-3 months. Related to Other intermediate (current) drug therapy Continue current ant i-rheumatic [...]
--- OUTSIDE RECORDS SUMMARY | 2024-01-13 07:51 | XMS_ITS | Referral Summary ---
Author Name Unknown Organization [facility] Address [address] [place] [address] Care Team Providers Care Loader Machine Name Role Phone Case Gao Primary Care Provider [phone] Allergies Active Allergy Reactions Criticality Noted Date [...] Octavia J [employer] Devices Implanted Type Area Spud Grader Device Identifier Shelf Expiration Date Model / Serial / Lot Insert Actb 42mm 28mm E Hip X3 Adm Strl Lf Mdm 7236-2-848 - [id number] Implanted:Qty: 1 on 04/08/2023 by Fazal Ramirez MD at [facility] Metallic Hardware/An chor Left: Hip MATTHEW [employer] [id number] 10/07/2027 7236-2-8 48 / / [id number] Trident Ii Tritanium Clusterhole 52e - [id number] Implanted:Qty: 1 on 03/25/2023 by Cj Chen MD at [facility] Total Joint Component/I nsert Left: Hip [employer] 12/29/2027 702-04-5 2E / / [id number] A Insert El 36mm 0deg X3 723-00-36e - [id number] Implanted:Qty: 1 on 03/25/2023 by Cj Chen MD at [facility] Total Joint Component/I nsert Left: Hip [employer] 12/24/2027 723-00-3 6E / / [id number] Imp Stem Fem Rstrtn Mod Bowed Conical 20i323wk 6276-7-219 - [id number] Implanted:Qty: 1 on 04/08/2023 by Fazal Ramirez MD at [facility] Total Joint Component/I nsert Left: Hip MATTHEW [employer] [id number] 02/14/2027 6276-7-2 19 / / [id number] Imp Insert Acet Strk Mdm Cocr Hip 0deg 42mm Sz E 626-00-42e - [id number] Implanted:Qty: 1 on 04/08/2023 by Fazal Ramirez MD at [facility] Total Joint Component/I nsert Left: Hip [employer] [id number] 01/13/2028 626-00-4 2E / / [id number] Imp Stem Fem Mod Rev Hip Prox Body/[place] 19mm +10 6276-1-119 - [id number] Implanted:Qty: 1 on 04/08/2023 by Fazal Ramirez MD at [facility] Total Joint Component/I nsert Left: Hip [employer] [id number] 08/15/2024 6276-1-1 19 / / [id number] Imp Head Femoral Strk Biolox Delta Ceramic 28mm +4mm - [id number] Implanted:Qty: 1 on 04/08/2023 by Fazal Ramirez MD at [facility] Total Joint Component/I nsert Left: Hip [employer] [id number] 10/31/2027 6570-0-2 28 / / [id number] Fibertape Cerclage, 2mm, 48 Implanted:Qty: 3 on 04/08/2023 by Fazal Ramirez MD at [facility] Left: Hip ARTHREX 06/04/2027 AR-7268 / / [id number] Fibertape Cerclage, 2mm, 48 Implanted:Qty: 1 on 04/08/2023 by Fazal Ramirez MD at [facility] Left: Hip ARTHREX 01/03/2028 AR-7268 / [id number] / Fibertape Cerclage, 2mm, 48 Implanted:Qty: 1 on 04/08/2023 by Fazal Ramirez MD at [facility] Left: Hip ARTHREX 11/03/2027 AR-7268 / / [id number] Explanted Type Area Spud Grader Device Identifier Shelf Expiration Date Model / Serial / Lot Imp Stem Femoral Hip Strk Accolade Ii 132deg Sz 5 4487-5730 - [id number] Implanted:Qty: 1 on 03/25/2023 by Cj Chen MD at [facility] Explanted:Qty: 1 on 04/08/2023 by Fazal Ramirez MD at [facility] Total Joint Component /Insert Left: Hip [employer] 03/03/2027 7106-4858 / / [id number] Imp Head Femoral Strk Biolox Delta Ceramic 36mm +2.5mm - [id number] Implanted:Qty: 1 on 03/25/2023 by Cj Chen MD at [facility] Explanted:Qty: 1 on 04/08/2023 by Fazal Ramirez MD at 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 MECHANIC from Last 3 Months or Most Recently [...] MD LAB - BLOOD ORDERABL ES LABORATORY [facility] Care Lab [address] Lab (1st floor, no room number) [place] [address], [place] [phone] * COLONOSCOPY - HIM SCAN (10/25/2022 12:00 AM TEXTILE MACHINE MECHANIC) 10/25/2022 Provider Outside PROCEDURES from Last 3 Months or Most Recently Relevant to Health Maintenance Additional Health Concerns Active Problems Noted Date Diagnosed Date Total Joint Replacement Hip Pathway 03/15/2023 Advance Directives For more information, please contact: [phone] * Full Code (Latest Code Status on [...] patie nt/ legal decision maker Care Teams Loader Machine Relationship Specialty Start Date End Date Case Gao [address] [place] [address] PCP - General Family Medicine 01/25/21
== END 2024-01-13 07:50 | disposition home or self-care (01) ==
LOC: WOUND 07:49
PROVIDERS: PCP Family Medicine; Visit Provider Nurse Practitioner Family
DX: I87.2 Venous insufficiency (chronic) (peripheral) (principal); L97.818 Non-pressure chronic ulcer of other part of right lower leg with other specified severity; Z79.60 Long term (current) use of unspecified immunomodulators and immunosuppressants; F41.9 Anxiety disorder, unspecified
CPT/HCPCS: 11042

== ENCOUNTER 2024-02-01 13:44 | Outpatient (CLI) | payer BC, SELFPAY ==
--- OUTSIDE RECORDS SUMMARY | 2024-02-01 13:48 | XMS_ITS | Clinical Summary ---
Author Organization [facility] Address [place], [place] [address] Care Team Providers Care Director Custom Name Role Phone Case Gao MD Primary [...] Left shoulder pain 04/21/2009 Bulimia Nervosa in joint terminal attack controller remission, per patient report. 10/14/2008 01/27/2021 Obesity, unspecified 11/26/2006 014 Encounters Date Type Department Care Team Description 01/11/2024 Orders Only [facility] [address] [place] [address] Case Gao MD Outside Order (Ordered by Dr. Sarah Paez-... 01/06/2024 11:20 AM CDT Office Visit [facility] [address] [place] [address] Case Gao MD Medication Management (Effexor ) 01/06/2024 Travel 01/06/2024 Telephone [facility] [address] [place] [address] Case Gao MD Medication Management (CHANGE MEDICATION BACK ) 12/26/2023 Telephone [facility] [address] [place] [address] Case Gao MD Medication Management (venlafaxine (EFFEXOR XR) 150 mg Extended-Release capsule//) 11/15/2023 Telephone [facility] [address] [place] [address] Case Gao MD Questions 11/10/2023 Lab Requisition [facility] [phone] Vira Pepe MD 11/03/2023 Telephone [facility] [address] [place] [address] Case Gao MD Questions (UPDATE ON DISABILITY FORMS) from Last 3 Months Immunizations Name Administration [...] 92.1 kg (203 lb) 10/20/2023 3:51 PM TRANSFER WORKER Height 169.4 cm (5' 6.69) 03/21/2023 9:18 [...] TRACKING EVENT Routine 11/09/2023 2: 17 PM TRANSFER WORKER PATH TISSUE EXAM Routine 11/09/2023 2:17 PM TRANSFER WORKER LIPID PANEL W REFLEX MEASURED LDL Routine 11/14/2020 7:56 AM TRANSFER WORKER Hyperlipidemia, unspecified hyperlipidemia type OCCULT BLOOD IFOBT STOOL Routine 11/16/2019 10:00 AM CDT Screening for colon cancer BILLBOARD MECHANIC THIN PREP PAP SCREEN IMAGED Routine 12/25/2018 [...] * LAB TRACKING EVENT (11/09/2023 2:17 PM TRANSFER WORKER) Other (Other) Client Collect / Unknown 11/09/2023 2:17 PM TRANSFER WORKER 11/10/2023 1:31 PM TRANSFER WORKER Vira Pepe MD LAB BILL ONLY [facility]-CENTRAL LABORATORY [address] [place], [place] [address] * PATH TISSUE EXAM (11/09/2023 2:17 PM TRANSFER WORKER) Case Report Pathology Report ?Case: [id number] ? Authorizing Provider: ??Vira Pepe MD ??Collected: ? 11/09/2023 1417 ? Ordering Location: ? [facility] ?Received: ?11/10/2023 1542 ? Pathologist: ? Ed Marie MD ? Specimen: ?Right Leg ? 11/11/2023 4:09 PM TRANSFER WORKER [facility] LABORAT[facility]-C ENTRAL LABORATORY Final Diagnosis A) SKIN, RIGHT LEG, BIOPSIES: 1. Cutaneous ulceration, see comment 2. No evidence of malignancy 11/11/2023 4:09 PM TRANSFER WORKER [facility]AL LABORATORY Comment A) The differential diagnosis includes the various causes of lower extremity ulceration including venous stasis, peripheral arterial disease, neuropathic, traumatic, infection, and coagulopathic. Within the appropriate clinical setting, if the aforementioned causes are ruled-out with appropriate studies and tissue cultures, these findings can be seen in a chronic ulcer related pyoderma gangrenosum. 11/11/2023 4:09 PM [facility] LABORATORY-C ENTRAL LABORATORY Clinical Information Patient with rheumatoid arthritis on methotrexate. Right lower leg with non-healing chronic wound since June 2023, assess for pyoderma gangrenosum. 11/11/2023 4:09 PM TRANSFER WORKER [facility]AL LABORATORY Gross Description A) Received in [...] green, bisected TLF 11/10/2023 11/11/2023 4:09 PM TRANSFER WORKER [facility]- ENTRAL LABORATORY Microscopic Description The final diagnosis [...] confirmed on tissue sections. 11/11/2023 4:09 PM TRANSFER WORKER [facility] ENTRAL LABORATORY Additional Information Interpreted at [facility] Central Laboratory - [address] [place], [place] [address]e [facility] [address], [place] [address] 11/11/2023 4:09 PM TRANSFER WORKER [facility] Other (Right Leg) 11/09/2023 2:17 PM TRANSFER WORKER 11/10/2023 3:42 PM TRANSFER WORKER Vira Pepe MD PATHOLOGY/CYTOLO GY [facility] [address] [place] [address], * LIPID PANEL W REFLEX MEASURED LDL (11/14/2020 7:56 AM TRANSFER WORKER) CHOLESTEROL,TOTAL 189 100 - 199 mg/dL 11/14/2020 2:34 PM TRANSFER WORKER [facility] TRAL LABORATORY TRIGLYCERIDES 60 <150 mg/dL 11/14/2020 2:34 PM TRANSFER WORKER [facility] TRAL LABORATORY HDL CHOLESTEROL 94 >40 mg/dL 2:34 PM TRANSFER WORKER [facility] TRAL LABORATORY NON-HDL CHOLESTEROL 95 <145 mg/dl 11/14/2020 2:34 PM TRANSFER WORKER [facility] TRAL LABORATORY CHOL/HDL RATIO 2.01 <4.50 11/14/2020 2:34 PM TRANSFER WORKER [facility] LABORAT[facility] TRAL LABORATORY LDL CHOLESTEROL 83 <=130 mg/dL 11/14/2020 2:34 PM TRANSFER WORKER [facility] TRAL LABORATORY PROVIDER ORDERED STATUS RANDOM 11/14/2020 2:34 PM TRANSFER WORKER [facility] TRAL LABORATORY Blood BLOOD SPECIMEN / Unknown Venipuncture / Unknown 11/14/2020 7:56 AM TRANSFER WORKER 11/14/2020 7:56 AM TRANSFER WORKER Case Gao MD CHEMISTRY [facility] LABOR[facility] [address] [place] [address], * OCCULT BLOOD IFOBT STOOL (11/16/2019 10:00 AM CDT) STOOL BLOOD ,IFOBT Negative Negative 11/16/2019 1:26 PM CDT [facility] Stool STOOL SPECIMEN / Unknown Non-Blood / Unknown 11/16/2019 10:00 AM CDT 11/16/2019 1:17 PM CDT Case Gao MD LABORATORY [facility] [address] [place] [address], * BILLBOARD MECHANIC THIN PREP PAP SCREEN IMAGED (12/25/2018 5:05 PM CDT) Case Report Gynecologic Cytology Report ? Case: [id number] ? Authorizing Provider: ??Case Gao, ?? Collected: ? 12/25/2018 1705 ? MD ? Ordering Location: ? [facility] ?? Received: ?12/25/2018 1723 ? Clinic ? First Screen: ?Mitra Vallejo ? Specimen: ?BILLBOARD MECHANIC ThinPrep Vial Screening, Cervical ? 01/04/2019 8:58 AM CDT [facility] Affirm LABORATORY-C ENTRAL LABORATORY INTERPRETATION/ RESULT NEGATIVE FOR INTRAEPITHELIAL LESION OR MALIGNANCY (NIL) (none) 01/04/2019 8:58 AM CDT [facility] Affirm LABORATORY-C ENTRAL LABORATORY IMEN ADEQUACY Satisfactory for evaluation Endocervical component present 01/04/2019 8:58 AM CDT [facility] LABORATORY-C ENTRAL LABORATORY HPV REQUEST HPV and PAP 01/04/2019 8:58 AM CDT [facility] LABORATORY-C ENTRAL LABORATORY Date of LMP unknown 01/04/2019 8:58 AM CDT [facility] ENTRAL LABORATORY Last Pap Date 09/19/14 01/04/2019 8:58 AM CDT [facility] EN[facility]FL LABORATORY Last Pap Result NIL 8:58 AM CDT [facility] ENTRAL LABORATORY Abnormal Pap or [place] Bx in last 5 years No 01/04/2019 8:58 AM CDT [facility] ENTRAL LABORATORY Menstrual Status Postmenopausal 01/04/2019 8:58 AM CDT [facility] Cl[place] Bx Done Today No 01/04/2019 8:58 AM CDT [facility] EN[facility] LABORATORY Additional Information None given 01/04/2019 8:58 AM CDT [facility] Automated Review Successful 01/04/2019 8:58 AM CDT [facility] ENTRFL LABORATORY Comment:Specimen processed s uccessfully by automated signal intelligence analyst device, SISCAPA Assay TechnologiesPrep Imaging System, [employer] ANCILLARY TESTING BILLBOARD MECHANIC HPV Ordered, Please see separate report 01/04/2019 8:58 AM CDT [facility] Note The pap test is a [...] lesions. Cytology is screened and interpreted at [facility], Central Laboratory - [address], [place] [address] and [facility] - [address]; [place] [address] and [facility] - [address]; [place] [address] and [facility] [address]; [place] [address] 01/04/2019 8:58 AM CDT [facility] ENTRFL LABORATORY Other (Cervical) Non-Blood / Unknown 12/25/2018 5:05 PM CDT 12/25/2018 5:23 PM CDT Case Gao MD PATHOLOGY[facility] [address] [place] [address], [place] * XR MAMMO BILAT SCREENING (12/04/2018 11:12 AM CDT) Anatomical Region Laterality Modality BREASTS, Breast Left, Breast Right Bilateral Mammography Impressions 12/04/2018 12:26 PM CDT ??There is no radiographic evidence for malignancy. ??Recommend annual mammograms. A lay language report of this examination will be provided to the patient. MAMMOGRAM ASSESSMENT: ??ACR 2 Benign Narrative 12/04/2018 12:26 PM CDT XR MAMMO BILAT SCREENING [[id number]] CLINICAL HISTORY: ??This is an asymptomatic 58 y.o. patient. INDICATION FOR EXAM: Mammogram Screening. TECHNIQUE: CC & MLO views were obtained. ??This digital study was evaluated with the assistance of Computer-Aided Detection. COMPARISON FILMS: Yes 03/31/10 [facility] 01/28/16 [facility] FINDINGS: ??Mammographically, the breast tissue has scattered fibroglandular densities. ??No suspicious masses or microcalcifications. ?? Benign appearing calcifications within both breasts, Benign appearing mass(es) within right breast and Benign appearing asymmetry within right breast. Case Gao MD MAMMO * ANTI HCV (03/31/2017 10:07 AM CDT) HEPATITIS C ANTIBODY Non-Reacti ve Non-Reacti ve 03/31/2017 4:31 PM CDT [facility] TRAL LABORATORY Blood BLOOD SPECIMEN / Unknown Venipuncture / Unknown 03/31/2017 10:07 AM CDT 03/31/2017 10:07 AM CDT Narrative [facility] LABOR[facility] - 03/31/2017 4:31 PM CDT Antibodies to HCV not detected; does not exclude the possibility of exposure to HCV. Case Gao MD [facility] [address] [place] [address], [place] from Last 3 Months or Most Recently Relevant to Health Maintenance Advance Directives * Full Code (Latest Code Status on File) Date Activated Date Inactivated Comments 02/26/2022 3:57 AM 02/27/2022 3:25 PM Question Answer Comments Code Status Discussion: Reviewed Preferences * Full Code Date Activated Date Inactivated Comments 06/23/2012 5:55 PM 06/24/2012 4:41 PM Care Teams Director Custom Relationship Specialty Start Date End Date Case Gao MD [address] [place] [address] PCP - General 11/28/06
--- OUTSIDE RECORDS SUMMARY | 2024-02-01 13:48 | XMS_ITS | Clinical Summary ---
Author Organization [facility] Address [address] [address] Phone Care Team Providers Care Contact Lens Curve Grinder Name Role Phone Unavailable Primary Care Provider [...]
--- OUTSIDE RECORDS SUMMARY | 2024-02-01 13:49 | XMS_ITS | Clinical Summary ---
Author Organization [facility] Address [address] [place] [address] Care Team Providers Care Coordinate Measuring Machine Programmer Name Role Phone GaoCase nieves Primary Care Provider [phone] Allergies Active Allergy Reactions Criticality Noted Date [...] Octavia Beauchamp [employer] Implanted Type Area Shirt Line Operator Device Identifier Shelf Expiration Date Model / Serial / Lot Insert Actb 42mm 28mm E Hip X3 Adm Strl Lf Mdm 7236-2-848 - [id number] Implanted:Qty: 1 on 04/08/2023 by aFzal Ramirez MD at [facility] Metallic Hardware/An chor Left: Hip [employer] [id number] 10/07/2027 7236-2-8 48 / / [id number] Trident Ii Tritanium Clusterhole 52e - [id number] Implanted:Qty: 1 on 03/25/2023 by Cj Chen MD at [facility] Total Joint Component/I nsert Left: Hip [employer] 12/29/2027 702-04-5 2E / / [id number] A Insert El 36mm 0deg X3 723-00-36e - [id number] Implanted:Qty: 1 on 03/25/2023 by Cj Chen MD at [facility] Total Joint Component/I nsert Left: Hip [employer] 12/24/2027 723-00-3 6E / / [id number] Imp Stem Fem Rstrtn Mod Bowed Conical 71o740ru 6276-7-219 - [id number] Implanted:Qty: 1 on 04/08/2023 by Fazal Ramirez MD at [facility] Total Joint Component/I nsert Left: Hip [employer] [id number] 02/14/2027 6276-7-2 19 / / [id number] Imp Insert Acet Strk Mdm Cocr Hip 0deg 42mm Sz E 626-00-42e - [id number] Implanted:Qty: 1 on 04/08/2023 by Fazal Ramirez MD at [facility] Total Joint Component/I nsert Left: Hip [employer] [id number] 01/13/2028 626-00-4 2E / / [id number] Imp Stem Fem Mod Rev Hip Prox Body/[place] 19mm +10 6276-1-119 - [id number] Implanted:Qty: 1 on 04/08/2023 by Fazal Ramirez MD at [facility] Total Joint Component/I nsert Left: Hip [employer] [id number] 08/15/2024 6276-1-1 [id number] Imp Head Femoral Strk Biolox Delta Ceramic 28mm +4mm - [id number] Implanted:Qty: 1 on 04/08/2023 by Fazal Ramirez MD at [facility] Total Joint Component/I nsert Left: Hip [employer] [id number] 10/31/2027 6570-0-2 28 / / [id number] Fibertape Cerclage, 2mm, 48 Implanted:Qty: 3 on 04/08/2023 by Fazal Ramirez MD at [facility] Left: Hip ARTH[employer]X 06/04/2027 AR-7268 / / [id number] Fibertape Cerclage, 2mm, 48 Implanted:Qty: 1 on 04/08/2023 by Fazal Ramirez MD at [facility] Left: Hip AR[employer]X 01/03/2028 AR-7268 / [id number] / Fibertape Cerclage, 2mm, 48 Implanted:Qty: 1 on 04/08/2023 by Fazal Ramirez MD at [facility] Left: Hip [employer] 11/03/2027 AR-7268 / / [id number] Explanted Type Area Shirt Line Operator Device Identifier Shelf Expiration Date Model / Serial / Lot Imp Stem Femoral Hip Strk Accolade Ii 132deg Sz 5 8139-1074 - [id number] Implanted:Qty: 1 on 03/25/2023 by Cj Chen MD at [facility] Explanted:Qty: 1 on 04/08/2023 by Fazal Ramirez MD at [facility] Total Joint Component /Insert Left: Hip [employer] 03/03/2027 6517-9964 / / [id number] Imp Head Femoral Strk Biolox Delta Ceramic 36mm +2.5mm - [id number] Implanted:Qty: 1 on 03/25/2023 by Cj Chen MD at [facility] Explanted:Qty: 1 on 04/08/2023 by Fazal Ramirez MD at [facility] Total Joint Component /Insert Left: Hip [employer] 12/07/2027 6570-0-536 / / [id number] 6.5 Mm Cannulated Screws, 16mm Thread Length 80mm Implanted:Qty: 3 on 01/25/2021 by Cj Chen MD at [facility] Explanted:Qty: 3 on 03/25/2023 by Cj Chen MD at [facility] Left: Hip SYNTHES 408.411 24 JAN 2021 Titanium Washer, 13.0 Mm Implanted:Qty: 3 on 01/25/2021 by Cj Chen MD at [facility] Explanted:Qty: 3 on 03/25/2023 by Cj Chen MD at [facility] Left: Hip SYNTHES 419.99 24 JAN 2021 8002 Procedures Procedure Name Priority Date/Time Associated Diagnosis Comments BASIC METABOLIC PANEL Routine 04/10/2023 7:07 AM CDT COLONOSCOPY - HIM SCAN 10/25/2022 12:00 AM AIR AND MISSILE DEFENSE CREWMEMBER from Last 3 Months or Most Recently [...] - 10.2 mg/dL 04/10/2023 7:36 AM CDT [facility] Glucose 108(H) 70 - 99 mg/dL 04/10/2023 7:36 AM CDT [facility] GFR Estimate >90 >60 mL/min/1.7 3m2 04/10/2023 7:36 AM CDT LABORATORY Blood STRUCTURE OF RIGHT UPPER LIMB / Unknown Venipuncture / Unknown 04/10/2023 7:07 AM CDT 04/10/2023 7:12 AM CDT Jonathan Linn MD LAB - BLOOD ORDERABL ES LABORATORY [facility] Acute Care Lab [address] Lab (1st floor, no room number) [place] [address], [facility] [phone] * COLONOSCOPY - HIM SCAN (10/25/2022 12:00 AM AIR AND MISSILE DEFENSE CREWMEMBER) 10/25/2022 Provider Outside PROCEDURES from Last 3 Months or Most Recently Relevant to Health Maintenance Additional Health Concerns Active Problems Noted Date Diagnosed Date Total Joint Replacement Hip Pathway 03/15/2023 Advance Directives For more information, please contact: [phone] * Full Code (Latest Code Status on [...] carmen nt/ legal decision maker Care Teams Coordinate Measuring Machine Programmer Relationship Specialty Start Date End Date Case Gao [address] [place] [address] PCP - General Family Medicine 01/25/21
--- OUTSIDE RECORDS SUMMARY | 2024-02-01 13:49 | XMS_ITS | Continuity of Care Document ---
Author Organization [facility] Address [address] [place] [address] Phone Care Team Providers Care Judicial Clerk Name Role Phone Sarah Rowan DO Unavailable [...] Of Hand 2v Specimen Handling Office/Outpatient Visit, [facility] Routine Venipuncture Specimen Handling CReactive Protein Complete [...] Consultants , [address], [place], [address], [place] tel:[phone] [facility] , No Information 4 Skrama Smith. [address], [place], [address], [place]. tel:[phone] [facility] , [address], [place], [address], [place] tel:[phone] [facility] [place] No Information 4 Skrama Smith. [address], [place], [address], [place]. tel:[phone] [facility] , [address], [place], [address], [place] tel:[phone] [facility] , No Information 4 Skrama Smith. [address], [place], [address], [place]. tel:[phone] Office/Outpa tient Visit, Est [facility] , [address], [place], [address], [place] tel:[phone] [facility] , Rheumatoid arthritis with rheumatoid factor 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 systems involvementO ther local intermodal truck driver (current) drug therapy 4 Skrama Smith. [address], [place], [address], [place]. tel:[phone] Referring Provider: Sarah Epperson, [address], [place], [address]. tel:[phone] [facility] , [address], [place], [address], [place] tel:[phone] [facility] , No Information 3 Philippe Smith. [address], [place], [address], [place]. tel:[phone] Office/Outpa tient Visit, Est [facility] , [address], [place], [address], [place] tel:[phone] [facility] , Rheumatoid arthritis (chief complaint)Mo nitor Chronic High Risk Meds (chief complaint) RA w/ rheumatoid factor of multiple sites w/o organ involvementO ther prison (current) drug therapyOther dorsalgia 3 María Denis. [facility] [address], [place], [address], [place]. tel:[phone] , [facility] [address], [place], [address].Refer ring Provider: Adeel Daniel W, [facility] [address], [place], [address]. tel:[phone] [facility] , [address], [place], [address], [place] tel:[phone] [facility] [place] No Information 2 María Denis. [facility] [address], [place], [address], [place]. tel:[phone] Office/Outpa tient Visit, Est [facility] , [address], [place], [address], [place] tel:[phone] [facility] , Rheumatoid arthritis (chief complaint)Mo nitor Chronic High Risk Meds (chief complaint) RA w/ rheumatoid factor of multiple sites w/o organ involvementO ther prison (current) drug therapy 2 María Denis. [facility] [address], [place], [address], [place]. tel:[phone] , [facility] [address] [place] [address] [address], [place], [address].Refer ring Provider: Adeel Tang, [facility] [address], [place], [address]. tel:[phone] [facility] , [address], [place], [address], [place] tel:[phone] [facility] , No Information 2 María Denis. [facility] [address], [place], [address], [place]. tel:[phone] Referring Provider: Adeel Tang, [facility] [address], [place], [address]. tel:[phone] Office/Outpa tient Visit, Est [facility] , [address], [place], [address], [place] tel:[phone] [facility] , Rheumatoid arthritis (chief complaint)Mo nitor Chronic High Risk Meds (chief complaint) RA w/ rheumatoid factor of multiple sites w/o organ involvementO ther prison (current) drug therapy 1 María Denis. [facility] [address], [place], [address], [place]. tel:[phone] , [address] [place] [address], [place], [address].Refer ring Provider: Adeel Tang, [facility] [address], [place], [address]. tel:[phone] Office/Outpa tient Visit, Est [facility] , [address], [place], [address], [place] tel:[phone] [facility] , Rheumatoid arthritis (chief complaint)Mo nitor Chronic High Risk Meds (chief complaint) AnxietyRA w/ rheumatoid factor of multiple sites w/o organ involvementO ther prison (current) drug therapy 0 María Denis. [facility] [address], [place], [address], [place]. tel:[phone] , [facility] [address] [place] [address] [address], [place], [address].Refer ring Provider: Adeel Tang, [facility] [address], [place], [address]. tel:[phone] Office/Outpa tient Visit, Est [facility] , [address], [place], [address], [place] tel:[phone] [facility] , Rheumatoid arthritis (chief complaint)Mo nitor Chronic High Risk Meds (chief complaint) AnxietyRA w/ rheumatoid factor of multiple sites w/o organ involvementO ther prison (current) drug therapy 0 Mraía Denis. [facility] [address], [place], [address], [place]. tel:[phone] , [facility] [address] [place] [address] [address], [place], [address].Refer ring Provider: Adeel Tang, [facility] [address], [place], [address]. tel:[phone] Office/Outpa tient Visit, Est [facility] , [address], [place], [address], [place] tel:[phone] [facility] , Rheumatoid arthritis (chief complaint)Mo nitor Chronic High Risk Meds (chief complaint) AnxietyRA w/ rheumatoid factor of multiple sites w/o organ involvementO ther local intermodal truck driver (current) drug therapy 8 9 María Denis. [facility] [address], [place], [address], [place]. tel:[phone] , [address], [place], [address].Refer ring Provider: Adeel Tang, [facility] [address], [place], [address]. tel:[phone] Office/Outpa tient Visit, Est [facility] , [address], [place], [address], [place] tel:[phone] [facility] , Rheumatoid arthritis (chief complaint)Mo nitor Chronic High Risk Meds (chief complaint) AnxietyRA w/ rheumatoid factor of multiple sites w/o organ involvementO ther local intermodal truck driver (current) drug therapy 201 8 María Denis. [facility] [address], [place], [address], [place]. tel:[phone] , [address], [place], [address].Refer ring Provider: Adeel Tang, [facility] [address], [place], [address]. tel:[phone] Office/Outpa tient Visit, Est [facility] , [address], [place], [address], [place] tel:[phone] [facility] , Rheumatoid arthritis (chief complaint)Mo nitor Chronic High Risk Meds (chief complaint) RA w/ rheumatoid factor of multiple sites w/o organ involvementO ther prison (current) drug therapyAnxie ty 9201 8 María Denis. [facility] [address], [place], [address], [place]. tel:[phone] Specialist: Tim Carrasquillo, [facility] [address] [place] [address] [address], [place], [address]. tel:[phone] ring Provider: Adeel Tang, [facility] [address], [place], [address]. tel:[phone] Office/Outpa tient Visit, Est [facility] , [address], [place], [address], [place] tel:[phone] [facility] , Rheumatoid arthritis (chief complaint)Mo nitor Chronic High Risk Meds (chief complaint) RA w/ rheumatoid factor of multiple sites w/o organ involvementO ther local intermodal truck driver (current) drug therapy 201 7 María Denis. [facility] [address], [place], [address], [place]. tel:[phone] Specialist: Tim Carrasquillo, [facility] [address] [place] [address] [address], [place], [address]. tel:[phone] ring Provider: Adeel Tang, [facility] [address], [place], [address]. tel:[phone] [facility] , [address], [place], [address], [place] tel:[phone] [facility] , Rheumatoid arthritis (chief complaint)Mo nitor Chronic High Risk Meds (chief complaint) RA w/ rheumatoid factor of multiple sites w/o organ involvementO ther prison (current) drug therapyPain in right shoulder María Denis. [facility] [address], [place], [address], [place]. tel:[phone] Specialist: Tim Carrasquillo, [address], [place], [address]. tel:[phone] ring Provider: Adeel Tang, [facility] [address], [place], [address]. tel:[phone] Office/Outpa tient Visit, Est [facility] , [address], [place], [address], [place] tel:[phone] [facility] , Rheumatoid arthritis (chief complaint)Mo nitor Chronic High Risk Meds (chief complaint) RA w/ rheumatoid factor of multiple sites w/o organ involvementO ther local intermodal truck driver (current) drug therapy María Denis. [facility] [address], [place], [address], [place]. tel:[phone] Specialist: Tim Carrasquillo, [address], [place], [address]. tel:[phone] ring Provider: Adeel Tang, [facility] [address], [place], [address]. tel:[phone] Office/Outpa tient Visit, Est [facility] , [address], [place], [address], [place] tel:[phone] [facility] , Rheumatoid arthritis (chief complaint)Mo nitor Chronic High Risk Meds (chief complaint) RA w/ rheumatoid factor of multiple sites w/o organ involvementO ther prison (current) drug therapyShoul vealsquez joint pain 5 María Denis. [facility] [address], [place], [address], [place]. tel:[phone] Specialist: Tim Carrasquillo, [facility] [address] [place] [address] [address], [place], [address]. tel:[phone] [facility] [place] Provider: Adeel Tang, [facility] [address], [place], [address]. tel:[phone] Office/Outpa tient Visit, Est [facility] , [address], [place], [address], [place] tel:[phone] [facility] , Rheumatoid arthritis (chief complaint)Mo nitor Chronic High Risk Meds (chief complaint) Rheumatoid arthritisThe rapeutic Drug MonitoringFi nger joint contracture María Denis. [facility] [address], [place], [address], [place]. tel:[phone] Specialist: Tim Carrasquillo, [address], [place], [address]. tel:[phone] [place] Provider: Adeel Tang, [facility] [address], [place], [address]. tel:[phone] Office/Outpa tient Visit, Est [facility] , [address], [place], [address], [place] tel:[phone] [facility] , Rheumatoid Arthritis (chief complaint) Rheumatoid ArthritisThe rapeutic Drug MonitoringPa in in joint involving lower leg 4 Maraí Denis. [facility] [address], [place], [address], [place]. tel:[phone] Specialist: Tim Carrasquillo, [facility] [address], [place], [address]. tel:[phone] ring Provider: Adeel Tang, [facility] [address], [place], [address]. tel:[phone] Office/Outpa tient Visit, Est [facility] , [address], [place], [address], [place] tel:[phone] [facility] , Rheumatoid Arthritis (chief complaint) Rheumatoid ArthritisThe rapeutic Drug MonitoringPa in in joint involving lower legPain in joint involving shoulder regionUnspec ified disorder of skin and subcutaneous tissue 4 María Denis. [facility] [address], [place], [address], [place]. tel:[phone] Specialist: Tim Carrasquillo [facility] [address] [place] [address] [address], [place], [address]. tel:[phone] ring Provider: Adeel Tang, [facility] [address], [place], [address]. tel:[phone] Office/Outpa tient Visit, Est [facility] , [address], [place], [address], [place] tel:[phone] [facility] , Rheumatoid Arthritis (chief complaint) Rheumatoid ArthritisThe rapeutic Drug MonitoringPa in in joint involving shoulder region 4 María Denis. [facility] [address], [place], [address], [place]. tel:[phone] Specialist: Tim Carrasquillo [facility] [address], [place], [address]. tel:[phone] ring Provider: Adeel Tang, [facility] [address], [place], [address]. tel:[phone] Office/Outpa tient Visit, Est [facility] , [address], [place], [address], [place] tel:[phone] [facility] , Rheumatoid Arthritis (chief complaint) Rheumatoid ArthritisThe rapeutic Drug MonitoringLO NG-TERM (CURRENT) USE OF STEROIDS 3 María Denis. [facility] [address], [place], [address], [place]. tel:[phone] Specialist: Tim Carrasquillo, [facility] [address] [place] [address] [address], [place], [address]. tel:[phone] ring Provider: Adeel Tang, [facility] [address], [place], [address]. tel:[phone] Office/Outpa tient Visit, Est [facility] , [address], [place], [address], [place] tel:[phone] [facility] , Rheumatoid Arthritis (chief complaint) Rheumatoid ArthritisThe rapeutic Drug MonitoringLO NG-TERM (CURRENT) USE OF STEROIDSCoug h 3 María Denis. [facility] [address], [place], [address], [place]. tel:[phone] Specialist: Tim Carrasquillo, [facility] [address], [place], [address]. tel:[phone] ring Provider: Adeel Tang, [facility] [address], [place], [address]. tel:[phone] Office/Outpa tient Visit, Est [facility] , [address], [place], [address], [place] tel:[phone] [facility] , Rheumatoid Arthritis (chief complaint) Rheumatoid ArthritisThe rapeutic Drug MonitoringLO NG-TERM (CURRENT) USE OF STEROIDS 3 María Denis. [facility] [address], [place], [address], [place]. tel:[phone] Specialist: Tim Carrasquillo, [facility] [address] [place] [address] [address], [place], [address]. tel:[phone] ring Provider: Adeel Tang, [facility] [address], [place], [address]. tel:[phone] Office/Outpa tient Visit, Est [facility] , [address], [place], [address], [place] tel:[phone] [facility] , Rheumatoid Arthritis (chief complaint) Rheumatoid ArthritisThe rapeutic Drug MonitoringUl cer of ankle 3 María Denis. [facility] [address], [place], [address], [place]. tel:[phone] Specialist: Tim Carrasquillo, [address], [place], [address]. tel:[phone] ring Provider: Adeel Tang, [facility] [address], [place], [address]. tel:[phone] Office/Outpa tient Visit, Est [facility] , [address], [place], [address], [place] tel:[phone] [facility] , Rheumatoid Arthritis (chief complaint) Rheumatoid ArthritisThe rapeutic Drug MonitoringLO NG-TERM (CURRENT) USE OF STEROIDS Dec-0 7-201 2 María Denis. [facility] [address], [place], [address], [place]. tel:[phone] Specialist: Tim Carrasquillo, [facility] [address] [place] [address] [address], [place], [address]. tel:[phone] ring Provider: Aedel Tang, [facility] [address], [place], [address]. tel:[phone] Office/Outpa tient Visit, Est [facility] , [address], [place], [address], [place] tel:[phone] [facility] , Rheumatoid Arthritis (chief complaint) Rheumatoid ArthritisLON G-TERM (CURRENT) USE OF STEROIDS Nov-0 2-201 2 María Adeel. [facility] [address], [place], [address], [place]. tel:[phone] Specialist: Tim Carrasquillo, [facility] [address] [place] [address] [address], [place], [address]. tel:[phone] ring Provider: Adeel Tang, [facility] [address], [place], [address]. tel:[phone] Office/Outpa tient Visit, New [facility] , [address], [place], [address], [place] tel:[phone] [facility] , Pulmonary infiltrates (chief complaint) Unspecified inflammatory polyarthropa thyLONG-TERM (CURRENT) USE OF STEROIDS 2 María Denis. [facility] [address], [place], [address], [place]. tel:[phone] Specialist: Tim Carrasquillo, [facility] [address], [place], [address]. tel:[phone] ring Provider: Adeel Tang, [facility] [address], [place], [address]. tel:[phone] Family History Family Member Type Diagnosis Age At Onset Sister Problem (finding) malignant neoplasm of o vary Father Problem (finding) cancer of colon Immunizations Vaccine Date Status Comments COVID-19 [employer] administered S ource: Other Provider Payers Payer name Insurance type Covered green party ID Authoriza ken(s) [facility] [id number] Social History Type Description Quantity Date Captured [...] safety monitoring ophthalmologic evaluation. Related to Other prison (current) drug therapy The patient will hav e CBC, Cr, transaminases and albumin performed every 3 months.Pursue annual safety monitoring ophthalmologic evaluation. 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 Related to Other prison (current) drug therapy The patient will hav e CBC, Cr, transaminases and albumin performed every 3 months.Pursue annual safety monitoring ophthalmologic evaluation. Related to Other local intermodal truck driver (current) drug therapy Continue input as ne [...] performed every 3 months. Related to Other local intermodal truck driver (current) drug therapy After discussion of potential [...] performed every 3 months. Related to Other local intermodal truck driver (current) drug therapy Continue current [...] performed every 3 months. Related to Other prison (current) drug therapy I again urged ruel katz to update evaluation with her primary care provider or a psychologist/psychiatrist. Related to Anxiety I urged patient to u pdate her evaluation with her primary care provider or a psychologist/psychiatrist. Related to Anxiety The patient will hav e CBC, Cr, transaminases and albumin performed every 3 months. 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 Related to Other prison (current) drug therapy Continue current ant i-rheumatic medications unchanged.The patient may be moving to [facility] if her gets the new job [...] performed every 3 months. Related to Other local intermodal truck driver (current) drug therapy Continue current ant i-rheumatic medications unchanged. 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 Related to Other local intermodal truck driver (current) drug therapy Continue current [...] performed every 2-3 months. Related to Other prison (current) drug therapy Continue current ant i-rheumatic [...]
--- OUTSIDE RECORDS SUMMARY | 2024-02-01 13:49 | XMS_ITS | Referral Summary ---
Author Organization [facility] Address [address] [place] [id number] Care Team Providers Care Data Steward Name Role Phone GaoCase nieves Primary Care Provider [phone] Allergies Active Allergy Reactions Criticality Noted Date [...] Plan Total Joint Replacement Hip Pathway No NitoJoshuaOctavia J Medical Devices Implanted Type Area Fire Behavior Analyst Device Identifier Shelf Expiration Date Model / Serial / Lot Insert Actb 42mm 28mm E Hip X3 Adm Strl Lf Mdm 7236-2-848 - [id number] Implanted:Qty: 1 on 04/08/2023 by Fazal Ramirez MD at [facility] Metallic Hardware/An chor Left: Hip [employer]W [employer] [id number] 10/07/2027 7236-2-8 48 / / [id number] Trident Ii Tritanium Clusterhole 52e - [id number] Implanted:Qty: 1 on 03/25/2023 by Cj Chen MD at [facility] Total Joint Component/I nsert Left: Hip [employer] 12/29/2027 702-04-5 2E / / [id number] A Insert El 36mm 0deg X3 723-00-36e - [id number] Implanted:Qty: 1 on 03/25/2023 by Cj Chen MD at [facility] Total Joint Component/I nsert Left: Hip [employer] 12/24/2027 723-00-3 6E / / [id number] Imp Stem Fem Rstrtn Mod Bowed Conical [id number] 6276-7-219 - [id number] Implanted:Qty: 1 on 04/08/2023 by Fazal Ramirez MD at [facility] Total Joint Component/I nsert Left: Hip MATTHEW [employer] [id number] 02/14/2027 6276-7-2 19 / / [id number] Imp Insert Acet Strk Mdm Cocr Hip 0deg 42mm Sz E 626-00-42e - [id number] Implanted:Qty: 1 on 04/08/2023 by Fazal Ramirez MD at [facility] Total Joint Component/I nsert Left: Hip [employer] [id number] 01/13/2028 626-00-4 2E / / [id number] Imp Stem Fem Mod Rev Hip Prox Body/[place] 19mm +10 6276-1-119 - [id number] Implanted:Qty: 1 on 04/08/2023 by Fazal Ramirez MD at [facility] Total Joint Component/I nsert Left: Hip [employer] [id number] 08/15/2024 6276-1-1 19 / / [id number] Imp Head Femoral Strk Biolox Delta Ceramic 28mm +4mm - [id number] Implanted:Qty: 1 on 04/08/2023 by Fazal Ramirez MD at [facility] Total Joint Component/I nsert Left: Hip [employer] [id number] 10/31/2027 6570-0-2 28 / / [id number] Fibertape Cerclage, 2mm, 48 Implanted:Qty: 3 on 04/08/2023 by Fazal Ramirez MD at [facility] Left: Hip [employer] 06/04/2027 AR-7268 / / [id number] Fibertape Cerclage, 2mm, 48 Implanted:Qty: 1 on 04/08/2023 by Fazal Ramirez MD at [facility] Left: Hip [employer] 01/03/2028 AR-7268 / [id number] / Fibertape Cerclage, 2mm, 48 Implanted:Qty: 1 on 04/08/2023 by Fazal Ramirez MD at [facility] Left: Hip ARTHREX 11/03/2027 AR-7268 / / [id number] Explanted Type Area Fire Behavior Analyst Device Identifier Shelf Expiration Date Model / Serial / Lot Imp Stem Femoral Hip Strk Accolade Ii 132deg Sz 5 4949-6950 - [id number] Implanted:Qty: 1 on 03/25/2023 by Cj Chen MD at [facility] Explanted:Qty: 1 on 04/08/2023 by Fazal Ramirez MD at [facility] Total Joint Component /Insert Left: Hip [employer] 03/03/2027 1046-6307 / / [id number] Imp Head Femoral Strk Biolox Delta Ceramic 36mm +2.5mm - [id number] Implanted:Qty: 1 on 03/25/2023 by Cj Chen MD at [facility] Explanted:Qty: 1 on 04/08/2023 by Fazal Ramirez MD at [facility] Total Joint Component /Insert Left: Hip [employer] 12/07/2027 6570-0-536 / / [id number] 6.5 Mm Cannulated Screws, 16mm Thread Length 80mm Implanted:Qty: 3 on 01/25/2021 by Cj Chen MD at [facility] Explanted:Qty: 3 on 03/25/2023 by Cj Chen MD at [facility] Left: Hip SYNTHES 408.411 24 JAN 2021 Titanium Washer, 13.0 Mm Implanted:Qty: 3 on 01/25/2021 by Cj Chen MD at [facility] Explanted:Qty: 3 on 03/25/2023 by Cj Chen MD at [facility] Left: Hip SYNTHES 419.99 24 JAN 2021 8002 Procedures Procedure Name Priority Date/Time Associated Diagnosis Comments BASIC METABOLIC PANEL Routine 04/10/2023 7:07 AM CDT COLONOSCOPY - HIM SCAN 10/25/2022 12:00 AM DUST MIXER from Last 3 Months or Most Recently [...] [facility] [address] Lab (1st floor, no room number) [place] [address], [facility] [phone] * COLONOSCOPY - HIM SCAN (10/25/2022 12:00 AM DUST MIXER) 10/25/2022 Provider Outside PROCEDURES from Last 3 Months or Most Recently Relevant to Health Maintenance Additional Health Concerns Active Problems Noted Date Diagnosed Date Total Joint Replacement Hip Pathway 03/15/2023 Advance Directives For more information, please contact: [phone] * Full Code (Latest Code Status on [...] patie nt/ legal decision maker Care Teams Data Steward Relationship Specialty Start Date End Date Case [place] [address] [place] [address] PCP - General Family Medicine 01/25/21
== END 2024-02-01 13:45 | disposition home or self-care (01) ==
LOC: WOUND 13:46
PROVIDERS: PCP Family Medicine; Visit Provider Surgery
DX: I87.2 Venous insufficiency (chronic) (peripheral) (principal); L97.812 Non-pressure chronic ulcer of other part of right lower leg with fat layer exposed; Z79.60 Long term (current) use of unspecified immunomodulators and immunosuppressants; M06.9 Rheumatoid arthritis, unspecified
CPT/HCPCS: 97597

== ENCOUNTER 2024-02-08 13:46 | Outpatient (CLI) | payer BC, SELFPAY ==
--- OUTSIDE RECORDS SUMMARY | 2024-02-08 13:48 | XMS_ITS | Continuity of Care Document ---
Author Organization [facility] Address [address] [place] [address] Phone Care Team Providers Care Accounting Instructor Name Role Phone Sarah Rowan DO Unavailable [...] Of Hand 2v Specimen Handling Office/Outpatient Visit, [facility] Routine Venipuncture Specimen Handling CReactive Protein [...] Consultants , [address], [place], [address], [place] tel:[phone] [facility] , No Information 4 Skrama Smith. [address], [place], [address], [place]. tel:[phone] [facility] , [address], [place], [address], [place] tel:[phone] [facility] No Information 4 Skrama Smith. [address], [place], [address], [place]. tel:[phone] [facility] , [address], [place], [address], [place] tel:[phone] [facility] , No Information 4 Skrama Smith. [address], [place], [address], [place]. tel:[phone] Office/Outpa tient Visit, Est [facility] , [address], [place], [address], [place] tel:[phone] [facility] , Rheumatoid arthritis with rheumatoid factor 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 systems involvementO ther automation consultant (current) drug therapy 4 Skrama Smith. [address], [place], [address], [place]. tel:[phone] Referring Provider: Sarah Epperson, [address], [place], [address]. tel:[phone] [facility] , [address], [place], [address], [place] tel:[phone] [facility] , No Information 3 Philippe Smith. [address], [place], [address], [place]. tel:[phone] Office/Outpa tient Visit, Est [facility] , [address], [place], [address], [place] tel:[phone] [facility] , Rheumatoid arthritis (chief complaint)Mo nitor Chronic High Risk Meds (chief complaint) RA w/ rheumatoid factor of multiple sites w/o organ involvementO ther detention (current) drug therapyOther dorsalgia 3 María Denis. [facility] [address], [place], [address], [place]. tel:[phone] , [facility] [address], [place], [address].Refer ring Provider: Adeel Daniel W, [facility] [address], [place], [address]. tel:[phone] [facility] , [address], [place], [address], [place] tel:[phone] [facility] No Information 2 María Denis. [facility] [address], [place], [address], [place]. tel:[phone] Office/Outpa tient Visit, Est [facility] , [address], [place], [address], [place] tel:[phone] [facility] , Rheumatoid arthritis (chief complaint)Mo nitor Chronic High Risk Meds (chief complaint) RA w/ rheumatoid factor of multiple sites w/o organ involvementO ther detention (current) drug therapy 2 María Denis. [facility] [address], [place], [address], [place]. tel:[phone] , [facility] [address] [place] [address] [address], [place], [address].Refer ring Provider: Adeel Tang, [facility] [address], [place], [address]. tel:[phone] [facility] , [address], [place], [address], [place] tel:[phone] [facility] , No Information 2 María Denis. [facility] [address], [place], [address], [place]. tel:[phone] Referring Provider: Adeel Tang, [facility] [address], [place], [address]. tel:[phone] Office/Outpa tient Visit, Est [facility] , [address], [place], [address], [place] tel:[phone] [facility] , Rheumatoid arthritis (chief complaint)Mo nitor Chronic High Risk Meds (chief complaint) RA w/ rheumatoid factor of multiple sites w/o organ involvementO ther detention (current) drug therapy 1 María Denis. [facility] [address], [place], [address], [place]. tel:[phone] , [address], [place], [address].Refer ring Provider: Adeel Tang, [facility] [address], [place], [address]. tel:[phone] Office/Outpa tient Visit, Est [facility] , [address], [place], [address], [place] tel:[phone] [facility] , Rheumatoid arthritis (chief complaint)Mo nitor Chronic High Risk Meds (chief complaint) AnxietyRA w/ rheumatoid factor of multiple sites w/o organ involvementO ther detention (current) drug therapy 0 María Denis. [facility] [address], [place], [address], [place]. tel:[phone] , [facility] [address] [place] [address] [address], [place], [address].Refer ring Provider: Adeel Tang, [facility] [address], [place], [address]. tel:[phone] Office/Outpa tient Visit, Est [facility] , [address], [place], [address], [place] tel:[phone] [facility] , Rheumatoid arthritis (chief complaint)Mo nitor Chronic High Risk Meds (chief complaint) AnxietyRA w/ rheumatoid factor of multiple sites w/o organ involvementO ther detention (current) drug therapy 0 María Denis. [facility] [address], [place], [address], [place]. tel:[phone] , [facility] [address] [place] [address] [address], [place], [address].Refer ring Provider: Adeel Tang, [facility] [address], [place], [address]. tel:[phone] Office/Outpa tient Visit, Est [facility] , [address], [place], [address], [place] tel:[phone] [facility] , Rheumatoid arthritis (chief complaint)Mo nitor Chronic High Risk Meds (chief complaint) AnxietyRA w/ rheumatoid factor of multiple sites w/o organ involvementO ther automation consultant (current) drug therapy 8 9 María Denis. [facility] [address], [place], [address], [place]. tel:[phone] , [address], [place], [address].Refer ring Provider: Adeel Tang, [facility] [address], [place], [address]. tel:[phone] Office/Outpa tient Visit, Est [facility] , [address], [place], [address], [place] tel:[phone] [facility] , Rheumatoid arthritis (chief complaint)Mo nitor Chronic High Risk Meds (chief complaint) AnxietyRA w/ rheumatoid factor of multiple sites w/o organ involvementO ther automation consultant (current) drug therapy 201 8 María Denis. [facility] [address], [place], [address], [place]. tel:[phone] , [address], [place], [address].Refer ring Provider: Adeel Tang, [facility] [address], [place], [address]. tel:[phone] Office/Outpa tient Visit, Est [facility] , [address], [place], [address], [place] tel:[phone] [facility] , Rheumatoid arthritis (chief complaint)Mo nitor Chronic High Risk Meds (chief complaint) RA w/ rheumatoid factor of multiple sites w/o organ involvementO ther detention (current) drug therapyAnxie ty 9201 8 María Denis. [facility] [address], [place], [address], [place]. tel:[phone] Specialist: Tim Carrasquillo, [facility] [address] [place] [address] [address], [place], [address]. tel:[phone] ring Provider: Adeel Tang, [facility] [address], [place], [address]. tel:[phone] Office/Outpa tient Visit, Est [facility] , [address], [place], [address], [place] tel:[phone] [facility] , Rheumatoid arthritis (chief complaint)Mo nitor Chronic High Risk Meds (chief complaint) RA w/ rheumatoid factor of multiple sites w/o organ involvementO ther automation consultant (current) drug therapy 201 7 María Denis. [facility] [address], [place], [address], [place]. tel:[phone] Specialist: Tim Carrasqiullo, [facility] [address] [place] [address] [address], [place], [address]. tel:[phone] ring Provider: Adeel Tang, [facility] [address], [place], [address]. tel:[phone] [facility] , [address], [place], [address], [place] tel:[phone] [facility] , Rheumatoid arthritis (chief complaint)Mo nitor Chronic High Risk Meds (chief complaint) RA w/ rheumatoid factor of multiple sites w/o organ involvementO ther detention (current) drug therapyPain in right shoulder María Denis. [facility] [address], [place], [address], [place]. tel:[phone] Specialist: Tim Carrasquillo, [address], [place], [address]. tel:[phone] ring Provider: Adeel Tang, [facility] [address], [place], [address]. tel:[phone] Office/Outpa tient Visit, Est [facility] , [address], [place], [address], [place] tel:[phone] [facility] , Rheumatoid arthritis (chief complaint)Mo nitor Chronic High Risk Meds (chief complaint) RA w/ rheumatoid factor of multiple sites w/o organ involvementO ther automation consultant (current) drug therapy María Denis. [facility] [address], [place], [address], [place]. tel:[phone] Specialist: Tim Carrasquillo, [address], [place], [address]. tel:[phone] ring Provider: Adeel Tang, [facility] [address], [place], [address]. tel:[phone] Office/Outpa tient Visit, Est [facility] , [address], [place], [address], [place] tel:[phone] [facility] , Rheumatoid arthritis (chief complaint)Mo nitor Chronic High Risk Meds (chief complaint) RA w/ rheumatoid factor of multiple sites w/o organ involvementO ther detention (current) drug therapyShoul velasquez joint pain 5 María Denis. [facility] [address], [place], [address], [place]. tel:[phone] Specialist: Tim Carrasquillo, [facility] [address] [place] [address] [address], [place], [address]. tel:[phone] [facility] Provider: Adeel Tang, [facility] [address], [place], [address]. tel:[phone] Office/Outpa tient Visit, Est [facility] , [address], [place], [address], [place] tel:[phone] [facility] , Rheumatoid arthritis (chief complaint)Mo nitor Chronic High Risk Meds (chief complaint) Rheumatoid arthritisThe rapeutic Drug MonitoringFi nger joint contracture María Denis. [facility] [address], [place], [address], [place]. tel:[phone] Specialist: Tim Carrasquillo, [address], [place], [address]. tel:[phone] Provider: Adeel Tang, [facility] [address], [place], [address]. tel:[phone] Office/Outpa tient Visit, Est [facility] , [address], [place], [address], [place] tel:[phone] [facility] , Rheumatoid Arthritis (chief complaint) Rheumatoid ArthritisThe rapeutic Drug MonitoringPa in in joint involving lower leg 4 María Denis. [facility] [address], [place], [address], [place]. tel:[phone] Specialist: Tim Carrasquillo, [facility] [address], [place], [address]. tel:[phone] ring Provider: Adeel Tang, [facility] [address], [place], [address]. tel:[phone] Office/Outpa tient Visit, Est [facility] , [address], [place], [address], [place] tel:[phone] [facility] , Rheumatoid Arthritis (chief complaint) Rheumatoid ArthritisThe rapeutic Drug MonitoringPa in in joint involving lower legPain in joint involving shoulder regionUnspec ified disorder of skin and subcutaneous tissue 4 María Denis. [facility] [address], [place], [address], [place]. tel:[phone] Specialist: Tim Carrasquillo [facility] [address] [place] [address] [address], [place], [address]. tel:[phone] ring Provider: Adeel Tang, [facility] [address], [place], [address]. tel:[phone] Office/Outpa tient Visit, Est [facility] , [address], [place], [address], [place] tel:[phone] [facility] , Rheumatoid Arthritis (chief complaint) Rheumatoid ArthritisThe rapeutic Drug MonitoringPa in in joint involving shoulder region 4 María Denis. [facility] [address], [place], [address], [place]. tel:[phone] Specialist: Tim Carrasquillo [facility] [address], [place], [address]. tel:[phone] ring Provider: Adeel Tang, [facility] [address], [place], [address]. tel:[phone] Office/Outpa tient Visit, Est [facility] , [address], [place], [address], [place] tel:[phone] [facility] , Rheumatoid Arthritis (chief complaint) Rheumatoid ArthritisThe rapeutic Drug MonitoringLO NG-TERM (CURRENT) USE OF STEROIDS 3 María Denis. [facility] [address], [place], [address], [place]. tel:[phone] Specialist: Tim Carrasquillo, [facility] [address] [place] [address] [address], [place], [address]. tel:[phone] ring Provider: Adeel Tang, [facility] [address], [place], [address]. tel:[phone] Office/Outpa tient Visit, Est [facility] , [address], [place], [address], [place] tel:[phone] [facility] , Rheumatoid Arthritis (chief complaint) Rheumatoid ArthritisThe rapeutic Drug MonitoringLO NG-TERM (CURRENT) USE OF STEROIDSCoug h 3 María Denis. [facility] [address], [place], [address], [place]. tel:[phone] Specialist: Tim Carrasquillo, [facility] [address], [place], [address]. tel:[phone] ring Provider: Adeel Tang, [facility] [address], [place], [address]. tel:[phone] Office/Outpa tient Visit, Est [facility] , [address], [place], [address], [place] tel:[phone] [facility] , Rheumatoid Arthritis (chief complaint) Rheumatoid ArthritisThe rapeutic Drug MonitoringLO NG-TERM (CURRENT) USE OF STEROIDS 3 María Denis. [facility] [address], [place], [address], [place]. tel:[phone] Specialist: Tim Carrasquillo, [facility] [address] [place] [address] [address], [place], [address]. tel:[phone] ring Provider: Adeel Tang, [facility] [address], [place], [address]. tel:[phone] Office/Outpa tient Visit, Est [facility] , [address], [place], [address], [place] tel:[phone] [facility] , Rheumatoid Arthritis (chief complaint) Rheumatoid ArthritisThe rapeutic Drug MonitoringUl cer of ankle 3 María Denis. [facility] [address], [place], [address], [place]. tel:[phone] Specialist: Tim Carrasquillo, [address], [place], [address]. tel:[phone] ring Provider: Adeel Tang, [facility] [address], [place], [address]. tel:[phone] Office/Outpa tient Visit, Est [facility] , [address], [place], [address], [place] tel:[phone] [facility] , Rheumatoid Arthritis (chief complaint) Rheumatoid ArthritisThe rapeutic Drug MonitoringLO NG-TERM (CURRENT) USE OF STEROIDS Dec-0 7-201 2 María Denis. [facility] [address], [place], [address], [place]. tel:[phone] Specialist: Tim Carrasquillo, [facility] [address] [place] [address] [address], [place], [address]. tel:[phone] ring Provider: Adeel Tang, [facility] [address], [place], [address]. tel:[phone] Office/Outpa tient Visit, Est [facility] , [address], [place], [address], [place] tel:[phone] [facility] , Rheumatoid Arthritis (chief complaint) Rheumatoid ArthritisLON G-TERM (CURRENT) USE OF STEROIDS Nov-0 2-201 2 María Adeel. [facility] [address], [place], [address], [place]. tel:[phone] Specialist: Tim Carrasquillo, [facility] [address] [place] [address] [address], [place], [address]. tel:[phone] ring Provider: Adeel Tang, [facility] [address], [place], [address]. tel:[phone] Office/Outpa tient Visit, New [facility] , [address], [place], [address], [place] tel:[phone] [facility] , Pulmonary infiltrates (chief complaint) Unspecified inflammatory polyarthropa thyLONG-TERM (CURRENT) USE OF STEROIDS 2 María Denis. [facility] [address], [place], [address], [place]. tel:[phone] Specialist: Tim Carrasquillo, [facility] [address], [place], [address]. tel:[phone] ring Provider: Adeel Tang, [facility] [address], [place], [address]. tel:[phone] Family History Family Member Type Diagnosis Age At Onset Sister Problem (finding) malignant neoplasm of o vary Father Problem (finding) cancer of colon Immunizations Vaccine Date Status Comments COVID-19 [employer] administered S ource: Other Provider Payers Payer name Insurance type Covered libertarian ID Authoriza ken(s) [facility] [id number] Social History Type Description Quantity Date Captured [...] safety monitoring ophthalmologic evaluation. Related to Other detention (current) drug therapy The patient will hav e CBC, Cr, transaminases and albumin performed every 3 months.Pursue annual safety monitoring ophthalmologic evaluation. Related to Other automation consultant (current) drug therapy Continue hydroxychlo roquine 400 [...] safety monitoring ophthalmologic evaluation. Related to Other detention (current) drug therapy Continue hydroxychlo roquine 400 [...] safety monitoring ophthalmologic evaluation. Related to Other detention (current) drug therapy Continue hydroxychlo roquine 400 [...] performed every 3 months. Related to Other automation consultant (current) drug therapy Continue current ant i-rheumatic [...] be moving to [facility] if her gets the new job that they anticipate. 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 Related to Other detention (current) drug therapy Continue current ant i-rheumatic medications unchanged.The patient may be moving to [facility] if her gets the new job that they anticipate. 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 Related to Other detention (current) drug therapy I encouraged the pat [...] performed every 3 months. Related to Other automation consultant (current) drug therapy Continue current ant i-rheumatic [...] performed every 2-3 months. Related to Other detention (current) drug [...]
--- OUTSIDE RECORDS SUMMARY | 2024-02-08 13:48 | XMS_ITS | Clinical Summary ---
Author Organization [facility] Address [address] [address] Phone Care Team Providers Care Car Checker Name Role Phone Unavailable Primary Care Provider [...] series) 2021 Influenza Vaccine Seasonal (Standing Order) (Season Ended) 2024 HPV Vaccine (Standing Order) Aged Out No [...]
--- OUTSIDE RECORDS SUMMARY | 2024-02-08 13:48 | XMS_ITS | Clinical Summary ---
Author Organization [facility] Address [place], [place] [address] Care Team Providers Care Glass Robot Operator Name Role Phone Case Gao MD Primary [...] Tablet 03/21/2023 Active levETIRAcetam (KEPPRA) 500 mg tabletIndications:A ltered mental status, unspecified altered mental status type TAKE 2 TABLETS TWICE A DAY 360 Tablet 3 04/22/2023 Active lisinopril-hydrochl orothiazide (10-12.5 mg) tablet (PRINZIDE; ZESTORETIC)Indicati ons:Essential hypertension TAKE 1 TABLET BY MOUTH EVERY DAY 90 Tablet 2 04/25/2023 Active venlafaxine (EFFEXOR) 75 mg tabletIndications:D epression, unspecified depression type Take 3 Tablets (225 mg) by mouth two times daily. 540 Tablet 2 01/06/2024 Active Active Problems Problem Noted Date Diagnosed [...] Left shoulder pain 04/21/2009 Bulimia Nervosa in longwall shearer operator remission, per patient report. 10/14/2008 01/27/2021 Obesity, unspecified 11/26/2006 014 Encounters Date Type Department Care Team Description 01/11/2024 Orders Only [facility] [address] [place] [address] Case Gao MD Outside Order (Ordered by Dr. Sarah Paez-... 01/06/2024 11:20 AM CDT Office Visit [facility] [address] [place] [address] Case Gao MD Medication Management (Effexor ) 01/06/2024 Travel 01/06/2024 Telephone [facility] [address] [place] [address] Case Gao MD Medication Management (CHANGE MEDICATION BACK ) 12/26/2023 Telephone [facility] [address] [place] [address] Case Gao MD Medication Management (venlafaxine (EFFEXOR XR) 150 mg Extended-Release capsule//) 11/15/2023 Telephone [facility] [address] [place] [address] Case Gao MD Questions 11/10/2023 Lab Requisition [facility] [phone] Vira Pepe MD from Last 3 Months Immunizations Name Administration [...] 92.1 kg (203 lb) 10/20/2023 3:51 PM SKIP PIT WORKER Height 169.4 cm (5' 6.69) 03/21/2023 9:18 AM CD T Body Mass Index 32.09 03/21/2023 9:18 AM CDT Plan of Treatment Upcoming Encounters Date Type Department Care Team (Late st Contact Info) Description 02/14/2024 1:45 PM CDT Orders Only [address] [place] [address] Lab, [facility] Maintenance Due Date Last [...] TRACKING EVENT Routine 11/09/2023 2: 17 PM SKIP PIT WORKER PATH TISSUE EXAM Routine 11/09/2023 2:17 PM SKIP PIT WORKER LIPID PANEL W REFLEX MEASURED LDL Routine 11/14/2020 7:56 AM SKIP PIT WORKER Hyperlipidemia, unspecified hyperlipidemia type OCCULT BLOOD IFOBT STOOL Routine 11/16/2019 10:00 AM CDT Screening for colon cancer FIFTH HAND THIN PREP PAP SCREEN IMAGED Routine 12/25/2018 [...] * LAB TRACKING EVENT (11/09/2023 2:17 PM SKIP PIT WORKER) Other (Other) Client Collect / Unknown 11/09/2023 2:17 PM SKIP PIT WORKER 11/10/2023 1:31 PM SKIP PIT WORKER Vira Pepe MD LAB BILL ONLY [facility] [address] [place] [address], * PATH TISSUE EXAM (11/09/2023 2:17 PM SKIP PIT WORKER) Case Report Pathology Report ?Case: [id number] ? Authorizing Provider: ??Vira Pepe MD ??Collected: ? 11/09/2023 1417 ? Ordering Location: ? [facility] ?Received: ?11/10/2023 1542 ? Pathologist: ? Marie, Ed Ana, MD ? Specimen: ?Right Leg ? 11/11/2023 4:09 PM SKIP PIT WORKER [facility] LABORATORY-C ENTRAL LABORATORY Final Diagnosis A) SKIN, RIGHT LEG, BIOPSIES: 1. Cutaneous ulceration, see comment 2. No evidence of malignancy 11/11/2023 4:09 PM [facility] [employer] [facility] Comment A) The differential diagnosis includes the various causes of lower extremity ulceration including venous stasis, peripheral arterial disease, neuropathic, traumatic, infection, and coagulopathic. Within the appropriate clinical setting, if the aforementioned causes are ruled-out with appropriate studies and tissue cultures, these findings can be seen in a chronic ulcer related pyoderma gangrenosum. 11/11/2023 4:09 PM [facility] [employer] [facility] ENTRAL LABORATORY Clinical Information Patient with rheumatoid arthritis on methotrexate. Right lower leg with non-healing chronic wound since June 2023, assess for pyoderma gangrenosum. 11/11/2023 4:09 PM [facility] [employer] [facility] ENTRAL LABORATORY Gross Description A) Received in [...] 2. Skin punch #2, inked green, bisected [facility] 11/10/2023 11/11/2023 4:09 PM SKIP PIT WORKER [facility] ENTR[facility] LABORATORY Microscopic Description The final diagnosis is [...] confirmed on tissue sections. 11/11/2023 4:09 PM SKIP PIT WORKER [facility] Additional Information Interpreted at [facility] [place] [facility] - [address] [facility] [address], [place] [address] 11/11/2023 4:09 PM SKIP PIT WORKER [facility] Other (Right Leg) 11/09/2023 2:17 PM SKIP PIT WORKER 11/10/2023 3:42 PM SKIP PIT WORKER Vira Pepe MD PATHOLOGY/CYTOLO GY [facility] [address] [place] [address], * LIPID PANEL W REFLEX MEASURED LDL (11/14/2020 7:56 AM SKIP PIT WORKER) CHOLESTEROL,TOTAL 189 100 - 199 mg/dL 11/14/2020 2:34 PM SKIP PIT WORKER [facility] TRAL LABORATORY TRIGLYCERIDES 60 <150 mg/dL 11/14/2020 2:34 PM SKIP PIT WORKER [facility] HDL CHOLESTEROL 94 >40 mg/dL 2:34 PM SKIP PIT WORKER [facility] NON-HDL CHOLESTEROL 95 <145 mg/dl 11/14/2020 2:34 PM SKIP PIT WORKER [facility] CHOL/HDL RATIO 2.01 <4.50 11/14/2020 2:34 PM SKIP PIT WORKER [facility] LDL CHOLESTEROL 83 <=130 mg/dL 11/14/2020 2:34 PM SKIP PIT WORKER [facility] TR[facility] LAB[facility] PROVIDER ORDERED STATUS RANDOM 11/14/2020 2:34 PM SKIP PIT WORKER [facility] Blood BLOOD SPECIMEN / Unknown Venipuncture / Unknown 11/14/2020 7:56 AM SKIP PIT WORKER 11/14/2020 7:56 AM SKIP PIT WORKER Case Gao MD CHEMISTRY [facility] [address] [place] [address], * OCCULT BLOOD IFOBT STOOL (11/16/2019 10:00 AM CDT) STOOL BLOOD ,IFOBT Negative Negative 11/16/2019 1:26 PM CDT [facility] Stool STOOL SPECIMEN / Unknown Non-Blood / Unknown 11/16/2019 10:00 AM CDT 11/16/2019 1:17 PM CDT Caes Gao MD LABORATORY Performing Organization Address City/[facility]/ZIP Co de Phone Number [facility] [address] [place] [address], * FIFTH HAND THIN PREP PAP SCREEN IMAGED (12/25/2018 5:05 PM CDT) Case Report Gynecologic Cytology Report ? Case: [id number] ? Authorizing Provider: ??Case Gao, ?? Collected: ? 12/25/2018 1705 ? MD ? Ordering Location: ? [facility] ?? Received: ?12/25/2018 1723 ? Clinic ? First Screen: ?Mitra Vallejo ? Specimen: ?FIFTH HAND ThinPrep Vial Screening, Cervical ? 01/04/2019 8:58 AM CDT [facility]-C ENTRAL LABORATORY INTERPRETATION/ RESULT NEGATIVE FOR INTRAEPITHELIAL LESION OR MALIGNANCY (NIL) (none) 01/04/2019 8:58 AM CDT [facility] EN[facility] IMEN ADEQUACY Satisfactory for evaluation Endocervical component present 01/04/2019 8:58 AM CDT [facility] EN[facility] LABORATORY HPV REQUEST HPV and PAP 01/04/2019 8:58 AM CDT [facility] EN[facility] LAB[facility]AT[facility] Date of LMP unknown 01/04/2019 8:58 AM CDT [facility] LABORATORY-C ENTRAL LABORATORY Last Pap Date 09/19/14 01/04/2019 8:58 AM CDT [facility] EN[facility] LAB[facility] Last Pap Result NIL 9 8:58 AM CDT [facility] LABORATORY-C ENTRAL LABORATORY Abnormal Pap or [place] Bx in last 5 years No 01/04/2019 8:58 AM CDT [facility] ENTRAL LABORATORY Menstrual Status Postmenopausal 01/04/2019 8:58 AM CDT [facility] [place] Bx Done Today No 01/04/2019 8:58 AM CDT [facility] Additional Information None given 01/04/2019 8:58 AM CDT [facility] Automated Review Successful 01/04/2019 8:58 AM CDT [facility] Comment:Specimen processed s uccessfully by automated recooperer device, ThinPrep Imaging System, [employer] ANCILLARY TESTING FIFTH HAND HPV Ordered, Please see separate report 01/04/2019 8:58 AM CDT [facility] Note The pap test [...] lesions. Cytology is screened and interpreted at [facility] [place] [facility] - [address], [place] [address] and [facility] - [address]; [place] [address] and [facility] - [address]; [place] [address] and [facility] [address]; [place] [address] 01/04/2019 8:58 AM CDT [facility] Other (Cervical) Non-Blood / Unknown 12/25/2018 5:05 PM CDT 12/25/2018 5:23 PM CDT Case Gao MD PATHOLOGY/CYTO LOGY [facility] [address] [place] [address], [place] * XR MAMMO BILAT SCREENING (12/04/2018 11:12 AM CDT) Anatomical Region Laterality Modality BREASTS, Breast Left, Breast Right Bilateral Mammography Impressions 12/04/2018 12:26 PM CDT ??There is no radiographic evidence for malignancy. ??Recommend annual mammograms. A lay language report of this examination will be provided to the patient. MAMMOGRAM ASSESSMENT: ??ACR 2 Benign Narrative 12/04/2018 12:26 PM CDT XR MAMMO BILAT SCREENING [[id number]] CLINICAL HISTORY: ??This is an asymptomatic 58 y.o. patient. INDICATION FOR EXAM: Mammogram Screening. TECHNIQUE: CC & MLO views were obtained. ??This digital study was evaluated with the assistance of Computer-Aided Detection. COMPARISON FILMS: Yes 03/31/10 [facility] 01/28/16 [facility] FINDINGS: ??Mammographically, the breast tissue has scattered fibroglandular densities. ??No suspicious masses or microcalcifications. ?? Benign appearing calcifications within both breasts, Benign appearing mass(es) within right breast and Benign appearing asymmetry within right breast. Case Gao MD MAMMO * ANTI HCV (03/31/2017 10:07 AM CDT) HEPATITIS C ANTIBODY Non-Reacti ve Non-Reacti ve 03/31/2017 4:31 PM CDT [facility] Blood BLOOD SPECIMEN / Unknown Venipuncture / Unknown 03/31/2017 10:07 AM CDT 03/31/2017 10:07 AM CDT Narrative [facility] - 03/31/2017 4:31 PM CDT Antibodies to HCV not detected; does not exclude the possibility of exposure to HCV. Case Gao MD [facility] [address] [place] [address], [place] from Last 3 Months or Most Recently Relevant to Health Maintenance Advance Directives * Full Code (Latest Code Status on File) Date Activated Date Inactivated Comments 02/26/2022 3:57 AM 02/27/2022 3:25 PM Question Answer Comments Code Status Discussion: Reviewed Preferences * Full Code Date Activated Date Inactivated Comments 06/23/2012 5:55 PM 06/24/2012 4:41 PM Care Teams Glass Robot Operator Relationship Specialty Start Date End Date Case Gao MD [address] [place] [address] PCP - General 11/28/06
--- OUTSIDE RECORDS SUMMARY | 2024-02-08 13:48 | XMS_ITS | Clinical Summary ---
Author Organization [facility] Address [address] [place] [address] Care Team Providers Care Goodwill Ambassador Name Role Phone GaoCase nieves Primary Care Provider [phone] Allergies Active Allergy Reactions Criticality Noted Date [...] Octavia Beauchamp Medical Devices Implanted Type Area Product Marketing Coordinator Device Identifier Shelf Expiration Date Model / Serial / Lot Insert Actb 42mm 28mm E Hip X3 Adm Strl Lf Mdm 7236-2-848 - [id number] Implanted:Qty: 1 on 04/08/2023 by Fazal Ramirez MD at [facility] Metallic Hardware/An chor Left: Hip MATTHEW [employer] [id number] 10/07/2027 7236-2-8 48 / / [id number] Trident Ii Tritanium Clusterhole 52e - [id number] Implanted:Qty: 1 on 03/25/2023 by Cj Chen MD at [facility] Total Joint Component/I nsert Left: Hip [employer] 12/29/2027 702-04-5 2E / / [id number] A Insert El 36mm 0deg X3 723-00-36e - [id number] Implanted:Qty: 1 on 03/25/2023 by Cj Chen MD at [facility] Total Joint Component/I nsert Left: Hip MATTHEW [employer] 12/24/2027 723-00-3 6E / / [id number] Imp Stem Fem Rstrtn Mod Bowed Conical [id number] 6276-7-219 - [id number] Implanted:Qty: 1 on 04/08/2023 by Fazal Ramirez MD at [facility] Total Joint Component/I nsert Left: Hip MATTHEW [employer] [id number] 02/14/2027 6276-7-2 19 / / [id number] Imp Insert Acet Strk Mdm Cocr Hip 0deg 42mm Sz E 626-00-42e - [id number] Implanted:Qty: 1 on 04/08/2023 by Fazal Ramirez MD at [facility] Total Joint Component/I nsert Left: Hip MATTHEW [employer] [id number] 01/13/2028 626-00-4 2E / / [id number] Imp Stem Fem Mod Rev Hip Prox Body/[place] 19mm +10 6276-1-119 - [id number] Implanted:Qty: 1 on 04/08/2023 by Fazal Ramirez MD at [facility] Total Joint Component/I nsert Left: Hip [employer] [id number] 08/15/2024 6276-1-1 [id number] Imp Head Femoral Strk Biolox Delta Ceramic 28mm +4mm - [id number] Implanted:Qty: 1 on 04/08/2023 by Fazal Ramirez MD at [facility] Total Joint Component/I nsert Left: Hip MATTHEW [employer] [id number] 10/31/2027 6570-0-2 28 / / [id number] Fibertape Cerclage, 2mm, 48 Implanted:Qty: 3 on 04/08/2023 by Fazal Ramirez MD at [facility] Left: Hip ARTHREX 06/04/2027 AR-7268 / / [id number] Fibertape Cerclage, 2mm, 48 Implanted:Qty: 1 on 04/08/2023 by Fazal Ramirez MD at [facility] Left: Hip ARTHREX 01/03/2028 AR-7268 / [id number] / Fibertape Cerclage, 2mm, 48 Implanted:Qty: 1 on 04/08/2023 by Fazal Ramirez MD at [facility] Left: Hip ARTHREX 11/03/2027 AR-7268 / / [id number] Explanted Type Area Product Marketing Coordinator Device Identifier Shelf Expiration Date Model / Serial / Lot Imp Stem Femoral Hip Strk Accolade Ii 132deg Sz 5 7828-4297 - [id number] Implanted:Qty: 1 on 03/25/2023 by Cj Chen MD at [facility] Explanted:Qty: 1 on 04/08/2023 by Fazal Ramirez MD at [facility] Total Joint Component /Insert Left: Hip [employer] 03/03/2027 4076-5707 / / [id number] Imp Head Femoral Strk Biolox Delta Ceramic 36mm +2.5mm - [id number] Implanted:Qty: 1 on 03/25/2023 by Cj Chen MD at [facility] Explanted:Qty: 1 on 04/08/2023 by Fazal Ramirez MD at [facility] Total Joint Component /Insert Left: Hip [employer] 12/07/2027 6570-0-536 / / [id number] 6.5 Mm Cannulated Screws, 16mm Thread Length 80mm Implanted:Qty: 3 on 01/25/2021 by Cj Chen MD at [facility] Explanted:Qty: 3 on 03/25/2023 by Cj Chen MD at [facility] Left: Hip SYNTHES 408.411 24 JAN 2021 Titanium Washer, 13.0 Mm Implanted:Qty: 3 on 01/25/2021 by Cj Chen MD at [facility] Explanted:Qty: 3 on 03/25/2023 by Cj Chen MD at [facility] Left: Hip SYNTHES 419.99 24 JAN 2021 8002 Procedures Procedure Name Priority Date/Time Associated Diagnosis Comments BASIC METABOLIC PANEL Routine 04/10/2023 7:07 AM CDT COLONOSCOPY - HIM SCAN 10/25/2022 12:00 AM COORDINATOR OF ONLINE PROGRAMS from Last 3 Months or Most Recently [...] LAB - BLOOD ORDERABL ES LABORATORY [facility] Acute Care Lab [address] Lab (1st floor, no room number) [place] [address], [facility] [phone] * COLONOSCOPY - HIM SCAN (10/25/2022 12:00 AM COORDINATOR OF ONLINE PROGRAMS) 10/25/2022 Provider Outside PROCEDURES from Last 3 Months or Most Recently Relevant to Health Maintenance Additional Health Concerns Active Problems Noted Date Diagnosed Date Total Joint Replacement Hip Pathway 03/15/2023 Advance Directives For more information, please contact: [phone] * Full Code (Latest Code Status on [...] carmen nt/ legal decision maker Care Teams Goodwill Ambassador Relationship Specialty Start Date End Date Case Gao [address] [place] [address] PCP - General Family Medicine 01/25/21
--- OUTSIDE RECORDS SUMMARY | 2024-02-08 13:49 | XMS_ITS | Referral Summary ---
Author Organization [facility] Address [address] [place] [address] Care Team Providers Care Customer Project Manager Name Role Phone GaoCase nieves Primary Care Provider [phone] Allergies Active Allergy Reactions Criticality Noted Date [...] NitoJoshuaOctavia J Medical Devices Implanted Type Area Brick Setter Operator Device Identifier Shelf Expiration Date Model / Serial / Lot Insert Actb 42mm 28mm E Hip X3 Adm Strl Lf Mdm 7236-2-848 - [id number] Implanted:Qty: 1 on 04/08/2023 by Fazal Ramirez MD at [facility] Metallic Hardware/An chor Left: Hip MATTHEW [employer] [id number] 10/07/2027 7236-2-8 48 / / [id number] Trident Ii Tritanium Clusterhole 52e - [id number] Implanted:Qty: 1 on 03/25/2023 by Cj Chen MD at [facility] Total Joint Component/I nsert Left: Hip [employer] 12/29/2027 702-04-5 2E / / [id number] A Insert El 36mm 0deg X3 723-00-36e - [id number] Implanted:Qty: 1 on 03/25/2023 by Cj Chen MD at [facility] Total Joint Component/I nsert Left: Hip [employer] 12/24/2027 723-00-3 6E / / [id number] Imp Stem Fem Rstrtn Mod Bowed Conical 14l349fi 6276-7-219 - [id number] Implanted:Qty: 1 on 04/08/2023 by Fazal Ramirez MD at [facility] Total Joint Component/I nsert Left: Hip MATTHEW [employer] [id number] 02/14/2027 6276-7-2 19 / / [id number] 0A Imp Insert Acet Strk Mdm Cocr Hip 0deg 42mm Sz E 626-00-42e - [id number] Implanted:Qty: 1 on 04/08/2023 by Fazal Ramirez MD at [facility] Total Joint Component/I nsert Left: Hip [employer] [id number] 01/13/2028 626-00-4 2E / / [id number] Imp Stem Fem Mod Rev Hip Prox Body/Joseph 19mm +10 6276-1-119 - [id number] Implanted:Qty: 1 on 04/08/2023 by Fazal Ramirez MD at [facility] Total Joint Component/I nsert Left: Hip [employer] [id number] 08/15/2024 6276-1-1 19 / / [id number] Imp Head Femoral Strk Biolox Delta Ceramic 28mm +4mm - [id number] Implanted:Qty: 1 on 04/08/2023 by Fazal Ramirez MD at [facility] Total Joint Component/I nsert Left: Hip [employer] [id number] 10/31/2027 6570-0-2 28 / / [id number] Fibertape Cerclage, 2mm, 48 Implanted:Qty: 3 on 04/08/2023 by Fazal Ramirez MD at [facility] Left: Hip ARTHREX 06/04/2027 AR-7268 / / [id number] Fibertape Cerclage, 2mm, 48 Implanted:Qty: 1 on 04/08/2023 by Fazal Ramirez MD at [facility] Left: Hip ARTHREX 01/03/2028 AR-7268 / [id number] / Fibertape Cerclage, 2mm, 48 Implanted:Qty: 1 on 04/08/2023 by Fazal Ramirez MD at [facility] Left: Hip ARTHREX 11/03/2027 AR-7268 / / [id number] Explanted Type Area Brick Setter Operator Device Identifier Shelf Expiration Date Model / Serial / Lot Imp Stem Femoral Hip Strk Accolade Ii 132deg Sz 5 7276-2622 - [id number] Implanted:Qty: 1 on 03/25/2023 by Cj Chen MD at [facility] Explanted:Qty: 1 on 04/08/2023 by Fazal Ramirez MD at [facility] Total Joint Component /Insert Left: Hip MATTHEW [employer] 03/03/2027 0792-7264 / / [id number] Imp Head Femoral Strk Biolox Delta Ceramic 36mm +2.5mm - [id number] Implanted:Qty: 1 on 03/25/2023 by Cj Chen MD at [facility] Explanted:Qty: 1 on 04/08/2023 by Fazal Ramirez MD at [facility] Total Joint Component /Insert Left: Hip MATTHEW [employer] 12/07/2027 6570-0-536 / / [id number] 6.5 Mm Cannulated Screws, 16mm Thread Length 80mm Implanted:Qty: 3 on 01/25/2021 by Cj Chen MD at [facility] Explanted:Qty: 3 on 03/25/2023 by Cj Chen MD at [facility] Left: Hip SYNTHES 408.411 24 JAN 2021 Titanium Washer, 13.0 Mm Implanted:Qty: 3 on 01/25/2021 by Cj Chen MD at [facility] Explanted:Qty: 3 on 03/25/2023 by Cj Chen MD at [facility] Left: Hip SYNTHES 419.99 24 JAN 2021 8002 Procedures Procedure Name Priority Date/Time Associated Diagnosis Comments BASIC METABOLIC PANEL Routine 04/10/2023 7:07 AM CDT COLONOSCOPY - HIM SCAN 10/25/2022 12:00 AM COAL SHOOTER from Last 3 Months or Most Recently [...] MD LAB - BLOOD ORDERABL ES LABORATORY [facility] Acute Care Lab [address] Lab (1st floor, no room number) [place] [address], [facility] [phone] * COLONOSCOPY - HIM SCAN (10/25/2022 12:00 AM COAL SHOOTER) 10/25/2022 Provider Outside PROCEDURES from Last 3 Months or Most Recently Relevant to Health Maintenance Additional Health Concerns Active Problems Noted Date Diagnosed Date Total Joint Replacement Hip Pathway 03/15/2023 Advance Directives For more information, please contact: [phone] * Full Code (Latest Code Status on [...] patie nt/ legal decision maker Care Teams Customer Project Manager Relationship Specialty Start Date End Date Case Gao [address] [place] [address] PCP - General Family Medicine 01/25/21
== END 2024-02-08 13:47 | disposition home or self-care (01) ==
LOC: WOUND 13:46
PROVIDERS: PCP Family Medicine; Visit Provider Surgery
DX: I87.2 Venous insufficiency (chronic) (peripheral) (principal); L97.812 Non-pressure chronic ulcer of other part of right lower leg with fat layer exposed
CPT/HCPCS: 97597

== ENCOUNTER 2024-02-22 13:34 | Outpatient (CLI) | payer BC, SELFPAY | END 2024-02-22 13:35 | disposition home or self-care (01) | LOC: WOUND 13:34 | PROVIDERS: PCP Family Medicine; Visit Provider Surgery | DX: I87.2 Venous insufficiency (chronic) (peripheral) (principal); L97.818 Non-pressure chronic ulcer of other part of right lower leg with other specified severity; M06.9 Rheumatoid arthritis, unspecified; Z79.60 Long term (current) use of unspecified immunomodulators and immunosuppressants | CPT/HCPCS: G0463 ==

== ENCOUNTER 2024-03-07 08:25 | Outpatient (CLI) | payer BC, SELFPAY ==
--- OUTSIDE RECORDS SUMMARY | 2024-03-07 08:27 | XMS_ITS | Clinical Summary ---
Author Organization [facility] Address [place], [place] [address] Care Team Providers Care Sfdc Developer Name Role Phone Case Gao MD [...] Left shoulder pain 04/21/2009 Bulimia Nervosa in product development remission, per patient report. 10/14/2008 01/27/2021 Obesity, unspecified 11/26/2006 014 Encounters Date Type Department Care Team Description 02/14/2024 1:45 PM CDT Orders Only [facility] [address] [place] [address] Lab, [place] Outside Order (Dr. Sarah Hilton ) 02/14/2024 Travel 01/11/2024 Orders Only [facility] [address] [place] [address] Case Gao MD Outside Order (Ordered by Dr. Sarah Paez-... 01/06/2024 11:20 AM CDT Office Visit [facility] [address] [place] [address] Case Gao MD Medication Management (Effexor ) 01/06/2024 Travel 01/06/2024 Telephone [facility] [address] [place] [address] Case Gao MD Medication Management (CHANGE MEDICATION BACK ) 12/26/2023 Telephone [facility] [address] [place] [address] Case Goa MD Medication Management (venlafaxine (EFFEXOR XR) 150 mg Extended-Release capsule//) from Last 3 Months Immunizations Name Administration [...] 92.1 kg (203 lb) 10/20/2023 3:51 PM GRAPPLER Height 169.4 cm (5' 6.69) 03/21/2023 9:18 [...] Procedure Name Priority Date/Time Associated Diagnosis Comments CBC WITH AUTO DIFFERENTIAL Routine 02/14/2024 1:37 PM CDT Encounter for long-term (current) use of other medications Seropositive rheumatoid arthritis of multiple sites (HC) SEDIMENTATION RATE Routine 02/14/2024 1: 37 PM CDT Encounter for long-term (current) use of other medications Seropositive rheumatoid arthritis of multiple sites (HC) CREATININE Routine 02/14/2024 1:37 PM CDT Encounter for long-term (current) use of other medications Seropositive rheumatoid arthritis of multiple sites (HC) CBC WITH AUTO DIFFERENTIAL Routine 02/14/2024 1:37 PM CDT Encounter for long-term (current) use of other medications Seropositive rheumatoid arthritis of multiple sites (HC) C-REACTIVE PROTEIN Routine 02/14/2024 1: 37 PM CDT Encounter for long-term (current) use of other medications Seropositive rheumatoid arthritis of multiple sites (HC) AST (SGOT) Routine 02/14/2024 1:37 PM CDT Encounter for long-term (current) use of other medications Seropositive rheumatoid arthritis of multiple sites (HC) ALT (SGPT) Routine 02/14/2024 1:37 PM CDT Encounter for long-term (current) use of other medications Seropositive rheumatoid arthritis of multiple sites (HC) ALBUMIN Routine 02/14/2024 1:37 PM CDT Encounter for long-term (current) use of other medications Seropositive rheumatoid arthritis of multiple sites (HC) LIPID PANEL W REFLEX MEASURED LDL Routine 11/14/2020 7:56 AM GRAPPLER Hyperlipidemia, unspecified hyperlipidemia type OCCULT BLOOD IFOBT STOOL Routine 11/16/2019 10:00 AM CDT Screening for colon cancer SENIOR GRAPHIC DESIGNER THIN PREP PAP SCREEN IMAGED Routine 12/25/2018 5:05 PM CDT Pap smear for cervical cancer screening XR MAMMO BILAT SCREENING Routine 12/04/2018 11:12 AM CDT Visit for screening mammogram ANTI HCV Routine 03/31/2017 10:07 AM CDT Encounter for hepatitis C screening test for low risk patient from Last 3 Months or Most Recently Relevant to Health Maintenance Results * SEDIMENTATION RATE (02/14/2024 1:37 PM CDT) SEDIMENTATION RATE 10 <30 mm/hr 06/11/ 2024 11:05 PM CDT [facility] Blood BLOOD SPECIMEN / Unknown Venipuncture / Unknown 02/14/2024 1:37 PM CDT 02/14/2024 1:39 PM CDT Case Gao MD HEMATOLOGY [facility] [address] [place] [address], * (ABNORMAL) CBC WITH AUTO DIFFERENTIAL (02/14/2024 1:37 PM CDT) WHITE BLOOD COUNT 6.4 4.5 - 11.0 thou/cu mm 02/14/2024 1:52 PM CDT [facility] RED BLOOD COUNT 3.98(L) 4.00 - 5.20 mil/cu mm 02/14/2024 1:52 PM CDT [facility] HEMOGLOBIN 12.5 12.0 - 16.0 g/dL 02/14/2024 1:52 PM CDT [facility] HEMATOCRIT 37.5 33.0 - 51.0 % 02/14/2024 1:52 PM CDT [facility] MCV 94 80 - 100 fL 02/14/2024 1:52 PM CDT [facility] MCH 31.4 26.0 - 34.0 pg 02/14/2024 1:52 PM CDT [facility] MCHC 33.3 32.0 - 36.0 g/dL 02/14/2024 1:52 PM CDT [facility] RDW 13.0 11.5 - 15.5 % 02/14/2024 1:52 PM CDT [facility] PLATELET COUNT 258 140 - 440 thou/cu mm 02/14/2024 1:52 PM CDT [facility] MPV 8.9 6.5 - 11.0 fL 02/14/2024 1:52 PM CDT [facility] % NEUT 60.1 % 02/14/2024 1:52 PM CDT [facility] % LYMPH 32.8 % 02/14/2024 1:52 PM CDT [facility] % MONO 6.9 % 02/14/2024 1:52 PM CDT [facility] % EOS 0.0 % 02/14/2024 1:52 PM CDT [facility] % BASO 0.2 % 02/14/2024 1:52 PM CDT [facility] ABSOLUTE NEUTROPHILS 3.8 1.7 - 7.0 thou/cu mm 02/14/2024 1:52 PM CDT [facility] ABSOLUTE LYMPHOCYTES 2.1 0.9 - 2.9 thou/cu mm 02/14/2024 1:52 PM CDT [facility] ABSOLUTE MONOCYTES 0.4 <0.9 thou/cu mm 02/14/2024 1:52 PM CDT [facility] ABSOLUTE EOSINOPHILS 0.0 <0.5 thou/cu mm 02/14/2024 1:52 PM CDT [facility] ABSOLUTE BASOPHILS 0.0 <0.3 thou/cu mm 02/14/2024 1:52 PM CDT [facility] Blood BLOOD SPECIMEN / Unknown Venipuncture / Unknown 02/14/2024 1:37 PM CDT 02/14/2024 1:39 PM CDT Narrative [facility] - 02/14/2024 1:52 PM CDT Notice: This testing was ordered by an outside provider. The provider who placed this order has reviewed and approved it for completion by the lab, but is not involved in this patient's care related to the ordering of this lab. The lab will provide the testing results for ALB, ALT, AST, CRP, CDF, Creat, ESR, to the outside provider, ??Dr. Sarah Hilton at fax number [phone], for that provider to inform and arrange appropriate follow up with the patient. Case Gao MD HEMATOLOGY [facility] [address] [place] [address], [place] [phone] * (ABNORMAL) CREATININE (02/14/2024 1:37 PM CDT) [facility] eGFR 87(L) >90 mL/min/1.7 3m2 02/15/2024 3:42 AM CDT [facility] Comment:As of 2021, eG FR is calculated by the CKD-EPI creatinine equation without race adjustment. ??eGFR can be influenced by muscle mass, exercise, and diet. ??The reported eGFR is an estimation only and is only applicable if the renal function is stable. CREATININE 0.77 0.50 - 0.90 mg/dL 02/15/2024 3:42 AM CDT [facility] Blood BLOOD SPECIMEN / Unknown Venipuncture / Unknown 02/14/2024 1:37 PM CDT 02/14/2024 1:39 PM CDT Case Gao MD CHEMISTRY Performing Organization Address City/[facility]/ZIP Co de Phone Number [facility] [address] [place] [address], * C-REACTIVE PROTEIN (02/14/2024 1:37 PM CDT) [facility] C-REACTIVE PROTEIN <0.3 <0.5 mg/dL 02/15/2024 3:49 AM CDT [facility] Blood BLOOD SPECIMEN / Unknown Venipuncture / Unknown 02/14/2024 1:37 PM CDT 02/14/2024 1:39 PM CDT Case Gao MD CHEMISTRY [facility] [address] [place] [address], * ALT (SGPT) (02/14/2024 1:37 PM CDT) [facility] ALT (SGPT) 25 10 - 35 IU/L 02/15/2024 3:42 AM CDT [facility] Blood BLOOD SPECIMEN / Unknown Venipuncture / Unknown 02/14/2024 1:37 PM CDT 02/14/2024 1:39 PM CDT Case Gao MD CHEMISTRY Performing Organization Address [facility]/ZIP Co de Phone Number [facility] [address] [place] [address], * AST (SGOT) (02/14/2024 1:37 PM CDT) AST (SGOT) 25 10 - 35 IU/L 02/15/2024 3:42 AM CDT [facility] Blood BLOOD SPECIMEN / Unknown Venipuncture / Unknown 02/14/2024 1:37 PM CDT 02/14/2024 1:39 PM CDT Case Gao MD CHEMISTRY Performing Organization Address [facility] Co de Phone Number [facility] [address] [place] [address], [place] * ALBUMIN (02/14/2024 1:37 PM CDT) ALBUMIN 4.3 4.0 - 4.9 g/dL 02/15/2024 3:42 AM CDT [facility] Blood BLOOD SPECIMEN / Unknown Venipuncture / Unknown 02/14/2024 1:37 PM CDT 02/14/2024 1:39 PM CDT Case Gao MD CHEMISTRY Performing Organization Address [facility] Co de Phone Number [facility] [address] [place] [address], [place] * LIPID PANEL W REFLEX MEASURED LDL (11/14/2020 7:56 AM GRAPPLER) CHOLESTEROL,TOTAL 189 100 - 199 mg/dL 11/14/2020 2:34 PM GRAPPLER [facility] TRIGLYCERIDES 60 <150 mg/dL 11/14/2020 2:34 PM GRAPPLER [facility] HDL CHOLESTEROL 94 >40 mg/dL 2:34 PM GRAPPLER [facility] NON-HDL CHOLESTEROL 95 <145 mg/dl 11/14/2020 2:34 PM GRAPPLER [facility] CHOL/HDL RATIO 2.01 <4.50 11/14/2020 2:34 PM GRAPPLER [facility] LDL CHOLESTEROL 83 <=130 mg/dL 11/14/2020 2:34 PM GRAPPLER [facility] PROVIDER ORDERED STATUS RANDOM 11/14/2020 2:34 PM GRAPPLER [facility] Blood BLOOD SPECIMEN / Unknown Venipuncture / Unknown 11/14/2020 7:56 AM GRAPPLER 11/14/2020 7:56 AM GRAPPLER Case Gao MD CHEMISTRY [facility] [address] [place] [address], * OCCULT BLOOD IFOBT STOOL (11/16/2019 10:00 AM CDT) STOOL BLOOD ,IFOBT Negative Negative 11/16/2019 1:26 PM CDT [facility] Stool STOOL SPECIMEN / Unknown Non-Blood / Unknown 11/16/2019 10:00 AM CDT 11/16/2019 1:17 PM CDT Case Gao MD LABORATORY [facility] [address] [place] [address], * SENIOR GRAPHIC DESIGNER THIN PREP PAP SCREEN IMAGED (12/25/2018 5:05 PM CDT) Case Report Gynecologic Cytology Report ? Case: [id number] ? Authorizing Provider: ??Case Gao, ?? Collected: ? 12/25/2018 1705 ? MD ? Ordering Location: ? [facility] ?? Received: ?12/25/2018 1723 ? Clinic ? First Screen: ?Mitra Vallejo ? Specimen: ?SENIOR GRAPHIC DESIGNER ThinPrep Vial Screening, Cervical ? 01/04/2019 8:58 AM CDT [facility] ENTRAL LABORATORY INTERPRETATION/ RESULT NEGATIVE FOR INTRAEPITHELIAL LESION OR MALIGNANCY (NIL) (none) 01/04/2019 8:58 AM T [email or web address] IMEN ADEQUACY Satisfactory for evaluation Endocervical component present 01/04/2019 8:58 AM CDT [facility] HPV REQUEST HPV and PAP 01/04/2019 8:58 AM CDT [facility] EN[facility]AL LABORATORY Date of LMP unknown 01/04/2019 8:58 AM CDT [facility] LAB[facility] Last Pap Date 09/19/14 01/04/2019 8:58 AM CDT [facility] EN[facility] LAB[facility] Last Pap Result NIL 9 8:58 AM CDT [facility] EN[facility] LAB[facility]ORY Abnormal Pap or [place] Bx in last 5 years No 01/04/2019 8:58 AM CDT [facility] LAB[facility]ORY Menstrual Status Postmenopausal 01/04/2019 8:58 AM CDT [facility] ENTRAL LABORATORY [place] Bx Done Today No 01/04/2019 8:58 AM CDT [facility] EN[facility]OR LABORATORY Additional Information None given 01/04/2019 8:58 AM CDT [facility] ENTRAL LABORATORY Automated Review Successful 01/04/2019 8:58 AM CDT [facility] EN[facility]AL LABORATORY Comment:Specimen processed s uccessfully by automated chief cook device, ThinPrep Imaging System, [employer] ANCILLARY TESTING SENIOR GRAPHIC DESIGNER HPV Ordered, Please see separate report 01/04/2019 8:58 AM CDT [facility] ENTROR LABORATORY Note The pap test is a [...] lesions. Cytology is screened and interpreted at [facility], Central Laboratory - [address], [place] [address] and [facility] - [address]; [place] [address] and [facility] - [address]; [place] [address] and [facility] [address]; [place] [address] 01/04/2019 8:58 AM CDT [facility] ENTRAL LABORATORY Other (Cervical) Non-Blood / Unknown 12/25/2018 5:05 PM CDT 12/25/2018 5:23 PM CDT Case Gao MD PATHOLOGY/CYTO LOGY [facility] [address] [place] [address], * XR MAMMO BILAT SCREENING (12/04/2018 11:12 AM CDT) Anatomical Region Laterality Modality BREASTS, Breast Left, Breast Right Bilateral Mammography Impressions 12/04/2018 12:26 PM CDT ??There is no radiographic evidence for malignancy. ??Recommend annual mammograms. A lay language report of this examination will be provided to the patient. MAMMOGRAM ASSESSMENT: ??ACR 2 Benign Narrative 12/04/2018 12:26 PM CDT XR MAMMO BILAT SCREENING [[id number]] CLINICAL HISTORY: ??This is an asymptomatic 58 y.o. patient. INDICATION FOR EXAM: Mammogram Screening. TECHNIQUE: CC & MLO views were obtained. ??This digital study was evaluated with the assistance of Computer-Aided Detection. COMPARISON FILMS: Yes 03/31/10 [facility] 01/28/16 [facility] FINDINGS: ??Mammographically, the breast tissue has scattered fibroglandular densities. ??No suspicious masses or microcalcifications. ?? Benign appearing calcifications within both breasts, Benign appearing mass(es) within right breast and Benign appearing asymmetry within right breast. Case Gao MD MAMMO * ANTI HCV (03/31/2017 10:07 AM CDT) HEPATITIS C ANTIBODY Non-Reacti ve Non-Reacti ve 03/31/2017 4:31 PM CDT [facility] Blood BLOOD SPECIMEN / Unknown Venipuncture / Unknown 03/31/2017 10:07 AM CDT 03/31/2017 10:07 AM CDT [facility] 03/31/2017 4:31 PM CDT Antibodies to HCV not detected; does not exclude the possibility of exposure to HCV. Case Gao MD SEND OUTS [facility]-CENTRAL LABORATORY [address] [place] [address], [place] from Last 3 Months or Most Recently Relevant to Health Maintenance Advance Directives * Full Code (Latest Code Status on File) Date Activated Date Inactivated Comments 02/26/2022 3:57 AM 02/27/2022 3:25 PM Question Answer Comments Code Status Discussion: Reviewed Preferences * Full Code Date Activated Date Inactivated Comments 06/23/2012 5:55 PM 06/24/2012 4:41 PM Care Teams Sfdc Developer Relationship Specialty Start Date End Date Case Gao MD [address] [place] [address] PCP - General 11/28/06
--- OUTSIDE RECORDS SUMMARY | 2024-03-07 08:27 | XMS_ITS | Clinical Summary ---
Author Organization [facility] Address [address] [address] Phone Care Team Providers Care Medical Instructor Name Role Phone Unavailable Primary Care Provider [...]
--- OUTSIDE RECORDS SUMMARY | 2024-03-07 08:28 | XMS_ITS | Clinical Summary ---
Author Organization [facility] Address [address] [place] [address] Care Team Providers Care Time Motion Analyst Name Role Phone GaoCase nieves Primary Care Provider [phone] Allergies Active Allergy Reactions Criticality Noted Date [...] Octavia Beauchamp Medical Devices Implanted Type Area Horticultural Farmworker Device Identifier Shelf Expiration Date Model / Serial / Lot Insert Actb 42mm 28mm E Hip X3 Adm Strl Lf Mdm 7236-2-848 - [id number] Implanted:Qty: 1 on 04/08/2023 by Fazal Ramirez MD at [facility] Metallic Hardware/An chor Left: Hip [employer] [id number] 10/07/2027 7236-2-8 48 / / [id number] Trident Ii Tritanium Clusterhole 52e - [id number] Implanted:Qty: 1 on 03/25/2023 by Cj Chen MD at [facility] Total Joint Component/I nsert Left: Hip [employer] 12/29/2027 702-04-5 2E / / [id number] A Insert El 36mm 0deg X3 723-00-36e - [id number] Implanted:Qty: 1 on 03/25/2023 by Cj Chen MD at [facility] Total Joint Component/I nsert Left: Hip [employer] 12/24/2027 723-00-3 6E / / [id number] Imp Stem Fem Rstrtn Mod Bowed Conical [id number] 6276-7-219 - [id number] Implanted:Qty: 1 on 04/08/2023 by Fazal Ramirez MD at [facility] Total Joint Component/I nsert Left: Hip [employer] [id number] 02/14/2027 6276-7-2 19 / / [id number] Imp Insert Acet Strk Mdm Cocr Hip 0deg 42mm Sz E 626-00-42e - [id number] Implanted:Qty: 1 on 04/08/2023 by Fazal Ramirez MD at [facility] Total Joint Component/I nsert Left: Hip [employer] [id number] 01/13/2028 626-00-4 2E / / [id number] Imp Stem Fem Mod Rev Hip Prox Body/Uvalde 19mm +10 6276-1-119 - [id number] Implanted:Qty: 1 on 04/08/2023 by Fazal Ramirez MD at [facility] Total Joint Component/I nsert Left: Hip [employer] [id number] 08/15/2024 6276-1-1 [id number] Imp Head Femoral Strk Biolox Delta Ceramic 28mm +4mm - [id number] Implanted:Qty: 1 on 04/08/2023 by Fazal Ramirez MD at [facility] Total Joint Component/I nsert Left: Hip [employer] [id number] 10/31/2027 6570-0-2 28 / / [id number] Fibertape Cerclage, 2mm, 48 Implanted:Qty: 3 on 04/08/2023 by Fazal Ramirez MD at [facility] Left: Hip AR[employer]REX 06/04/2027 AR-7268 / / [id number] Fibertape Cerclage, 2mm, 48 Implanted:Qty: 1 on 04/08/2023 by Fazal Ramirez MD at [facility] Left: Hip AR[employer]REX 01/03/2028 AR-7268 / [id number] / Fibertape Cerclage, 2mm, 48 Implanted:Qty: 1 on 04/08/2023 by Fazal Ramirez MD at [facility] Left: Hip ARTHREX 11/03/2027 AR-7268 / / [id number] Explanted Type Area Horticultural Farmworker Device Identifier Shelf Expiration Date Model / Serial / Lot Imp Stem Femoral Hip Strk Accolade Ii 132deg Sz 5 [id number] - [id number] Implanted:Qty: 1 on 03/25/2023 by Cj Chen MD at [facility] Explanted:Qty: 1 on 04/08/2023 by Fazal Ramirez MD at [facility] Total Joint Component /Insert Left: Hip [employer] 03/03/2027 9335-7920 / / [id number] Imp Head Femoral Strk Biolox Delta Ceramic 36mm +2.5mm - [id number] Implanted:Qty: 1 on 03/25/2023 by Cj Chen MD at [facility] Explanted:Qty: 1 on 04/08/2023 by Fazal Ramirez MD at [facility] Total Joint Component /Insert Left: Hip [employer] 12/07/2027 6570-0-536 / / [id number] 6.5 Mm Cannulated Screws, 16mm Thread Length 80mm Implanted:Qty: 3 on 01/25/2021 by Cj Chen MD at [facility] Explanted:Qty: 3 on 03/25/2023 by Cj Chen MD at [facility] Left: Hip SYNTHES 408.411 24 JAN 2021 Titanium Washer, 13.0 Mm Implanted:Qty: 3 on 01/25/2021 by Cj Chen MD at [facility] Explanted:Qty: 3 on 03/25/2023 by Cj Chen MD at [facility] Left: Hip SYNTHES 419.99 24 JAN 2021 [id number] Procedures Procedure Name Priority Date/Time Associated Diagnosis Comments GLUCOSE Routine 04/10/2023 7:07 AM CDT COLONOSCOPY - HIM SCAN 10/25/2022 12:00 AM WOODEN SHADE HARDWARE INSTALLER from Last 3 Months or Most Recently Relevant to Health Maintenance Results * (ABNORMAL) Glucose (04/10/2023 7:07 AM CDT) Glucose 108(H) 70 - 99 mg/dL 04/10/2023 7:36 AM CDT LABORATORY Blood STRUCTURE OF RIGHT UPPER LIMB / Unknown Venipuncture / Unknown 04/10/2023 7:07 AM CDT 04/10/2023 7:12 AM CDT Jonathan Linn MD LAB - BLOOD ORDERABL ES LABORATORY [facility] Acute Care Lab [address] Lab (1st floor, no room number) [place] [address], [facility] [place] [phone] * COLONOSCOPY - HIM SCAN (10/25/2022 12:00 AM WOODEN SHADE HARDWARE INSTALLER) 10/25/2022 Provider Outside PROCEDURES from Last 3 Months or Most Recently Relevant to Health Maintenance Additional Health Concerns Active Problems Noted Date Diagnosed Date Total Joint Replacement Hip Pathway 03/15/2023 Advance Directives For more information, please contact: [phone] * Full Code (Latest Code Status on [...] patie nt/ legal decision maker Care Teams Time Motion Analyst Relationship Specialty Start Date End Date Case Gao [address] [place] [address] PCP - General Family Medicine 01/25/21
--- OUTSIDE RECORDS SUMMARY | 2024-03-07 08:28 | XMS_ITS | Referral Summary ---
Author Organization [facility] Address [address] [place] [id number] Care Team Providers Care General Expeditor Name Role Phone GaoCase nieves Primary Care Provider [phone] Allergies Active Allergy Reactions Criticality Noted Date [...] NitoJoshuaOctavia J Medical Devices Implanted Type Area Manager Orange Device Identifier Shelf Expiration Date Model / Serial / Lot Insert Actb 42mm 28mm E Hip X3 Adm Strl Lf Mdm 7236-2-848 - [id number] Implanted:Qty: 1 on 04/08/2023 by Fazal Ramirez MD at [facility] Metallic Hardware/An chor Left: Hip [employer] [id number] 10/07/2027 7236-2-8 48 / / [id number] Trident Ii Tritanium Clusterhole 52e - [id number] Implanted:Qty: 1 on 03/25/2023 by Cj Chen MD at [employer] Total Joint Component/I nsert Left: Hip [employer] 12/29/2027 702-04-5 2E / / [id number] A Insert El 36mm 0deg X3 723-00-36e - [id number] Implanted:Qty: 1 on 03/25/2023 by Cj Chen MD at [employer] Total Joint Component/I nsert Left: Hip [employer] 12/24/2027 723-00-3 6E / / [id number] Imp Stem Fem Rstrtn Mod Bowed Conical [id number] 6276-7-219 - [id number] Implanted:Qty: 1 on 04/08/2023 by Fazal Ramirez MD at [facility] Total Joint Component/I nsert Left: Hip [employer] [id number] 02/14/2027 6276-7-2 19 / / [id number] Imp Insert Acet Strk Mdm Cocr Hip 0deg 42mm Sz E 626-00-42e - [id number] Implanted:Qty: 1 on 04/08/2023 by Fazal Ramirez MD at [facility] Total Joint Component/I nsert Left: Hip [employer] [id number] 01/13/2028 626-00-4 2E / / [id number] Imp Stem Fem Mod Rev Hip Prox Body/Mendon 19mm +10 6276-1-119 - [id number] Implanted:Qty: 1 on 04/08/2023 by Fazal Ramirez MD at [facility] Total Joint Component/I nsert Left: Hip [employer] [id number] 08/15/2024 6276-1-1 19 / / [id number] Imp Head Femoral Strk Biolox Delta Ceramic 28mm +4mm - [id number] Implanted:Qty: 1 on 04/08/2023 by Fazal Ramirez MD at [facility] Total Joint Component/I nsert Left: Hip [employer] [id number] 10/31/2027 6570-0-2 28 / / [id number] Fibertape Cerclage, 2mm, 48 Implanted:Qty: 3 on 04/08/2023 by Fazal Ramirez MD at [facility] Left: Hip [employer] 06/04/2027 AR-7268 / / [id number] Fibertape Cerclage, 2mm, 48 Implanted:Qty: 1 on 04/08/2023 by Fazal Ramirez MD at [facility] Left: Hip [employer] 01/03/2028 AR-7268 / [id number] / Fibertape Cerclage, 2mm, 48 Implanted:Qty: 1 on 04/08/2023 by Fazal Ramirez MD at [facility] Left: Hip [employer] 11/03/2027 AR-7268 / / [id number] Explanted Type Area Manager Orange Device Identifier Shelf Expiration Date Model / Serial / Lot Imp Stem Femoral Hip Strk Accolade Ii 132deg Sz 5 2873-8106 - [id number] Implanted:Qty: 1 on 03/25/2023 by Cj Chen MD at [employer] Explanted:Qty: 1 on 04/08/2023 by Fazal Ramirez MD at [facility] Total Joint Component /Insert Left: Hip [employer] 03/03/2027 4971-4294 / / [id number] Imp Head Femoral Strk Biolox Delta Ceramic 36mm +2.5mm - [id number] Implanted:Qty: 1 on 03/25/2023 by Cj Chen MD at [employer] Explanted:Qty: 1 on 04/08/2023 by Fazal Ramirez MD at [facility] Total Joint Component /Insert Left: Hip [employer] 12/07/2027 6570-0-536 / / [id number] 6.5 Mm Cannulated Screws, 16mm Thread Length 80mm Implanted:Qty: 3 on 01/25/2021 by Cj Chen MD at [facility] Explanted:Qty: 3 on 03/25/2023 by Cj Chen MD at [employer] Left: Hip SYNTHES 408.411 24 JAN 2021 Titanium Washer, 13.0 Mm Implanted:Qty: 3 on 01/25/2021 by Cj Chen MD at [facility] Explanted:Qty: 3 on 03/25/2023 by Cj Chen MD at [employer] Left: Hip SYNTHES 419.99 24 JAN 2021 8002 Procedures Procedure Name Priority Date/Time Associated Diagnosis Comments GLUCOSE Routine 04/10/2023 7:07 AM CDT COLONOSCOPY - HIM SCAN 10/25/2022 12:00 AM PICTURE HANGER from Last 3 Months or Most Recently Relevant to Health Maintenance Results * (ABNORMAL) Glucose (04/10/2023 7:07 AM CDT) Glucose 108(H) 70 - 99 mg/dL 04/10/2023 7:36 AM CDT LABORATORY Blood STRUCTURE OF RIGHT UPPER LIMB / Unknown Venipuncture / Unknown 04/10/2023 7:07 AM CDT 04/10/2023 7:12 AM CDT Jonathan Linn MD LAB - BLOOD ORDERABL ES [facility] [address] Lab (1st floor, no room number) [place] [address], [facility] [phone] * COLONOSCOPY - HIM SCAN (10/25/2022 12:00 AM PICTURE HANGER) 10/25/2022 Provider Outside PROCEDURES from Last 3 Months or Most Recently Relevant to Health Maintenance Additional Health Concerns Active Problems Noted Date Diagnosed Date Total Joint Replacement Hip Pathway 03/15/2023 Advance Directives For more information, please contact: [phone] * Full Code (Latest Code Status on [...] carmen nt/ legal decision maker Care Teams General Expeditor Relationship Specialty Start Date End Date Case [address] [place] [address] PCP - General Family Medicine 01/25/21
--- OUTSIDE RECORDS SUMMARY | 2024-03-07 08:28 | XMS_ITS | Continuity of Care Document ---
Author Organization [facility] Address [address] [place] [address] Phone Care Team Providers Care Garment Manufacturing Supervisor Name Role Phone Sarah Rowan DO Unavailable [...] Of Hand 2v Specimen Handling Office/Outpatient Visit, [facility] Routine Venipuncture Specimen Handling CReactive Protein Complete [...] Consultants , [address], [place], [address], [place] tel:[phone] [facility] , No Information 4 Philippe Smith. [address], [place], [address], [place]. tel:[phone] [facility] , [address], [place], [address], [place] tel:[phone] [facility] No Information 4 Skrama Smith. [address], [place], [address], [place]. tel:[phone] [facility] , [address], [place], [address], [place] tel:[phone] [facility] , No Information 4 Philippe Smith. [address], [place], [address], [place]. tel:[phone] Office/Outpa tient Visit, Est [facility] , [address], [place], [address], [place] tel:[phone] [facility] , Rheumatoid arthritis with rheumatoid factor 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 systems involvementO ther bed bug exterminator (current) drug therapy 4 Skrama Smith. [address], [place], [address], [place]. tel:[phone] Referring Provider: Sarah Epperson, [address], [place], [address]. tel:[phone] [facility] , [address], [place], [address], [place] tel:[phone] [facility] , No Information 3 Philippe Smith. [address], [place], [address], [place]. tel:[phone] Office/Outpa tient Visit, Est [facility] , [address], [place], [address], [place] tel:[phone] [facility] , Rheumatoid arthritis (chief complaint)Mo nitor Chronic High Risk Meds (chief complaint) RA w/ rheumatoid factor of multiple sites w/o organ involvementO ther assisted (current) drug therapyOther dorsalgia 3 María Denis. [facility] [address], [place], [address], [place]. tel:[phone] , [facility] [address], [place], [address].Refer ring Provider: Adeel Daniel W, [facility] [address], [place], [address]. tel:[phone] [facility] , [address], [place], [address], [place] tel:[phone] [facility] [place] No Information 2 María Denis. [facility] [address], [place], [address], [place]. tel:[phone] Office/Outpa tient Visit, Est [facility] , [address], [place], [address], [place] tel:[phone] [facility] , Rheumatoid arthritis (chief complaint)Mo nitor Chronic High Risk Meds (chief complaint) RA w/ rheumatoid factor of multiple sites w/o organ involvementO ther assisted (current) drug therapy 2 María Denis. [facility] [address], [place], [address], [place]. tel:[phone] , [facility] [address] [place] [address] [address], [place], [address].Refer ring Provider: Adeel Tang, [facility] [address], [place], [address]. tel:[phone] [facility] , [address], [place], [address], [place] tel:[phone] [facility] , No Information 2 María Denis. [facility] [address], [place], [address], [place]. tel:[phone] Referring Provider: Adeel Tang, [facility] [address], [place], [address]. tel:[phone] Office/Outpa tient Visit, Est [facility] , [address], [place], [address], [place] tel:[phone] [facility] , Rheumatoid arthritis (chief complaint)Mo nitor Chronic High Risk Meds (chief complaint) RA w/ rheumatoid factor of multiple sites w/o organ involvementO ther assisted (current) drug therapy 1 María Denis. [facility] [address], [place], [address], [place]. tel:[phone] , [address], [place], [address].Refer ring Provider: Adeel Tang, [facility] [address], [place], [address]. tel:[phone] Office/Outpa tient Visit, Est [facility] , [address], [place], [address], [place] tel:[phone] [facility] , Rheumatoid arthritis (chief complaint)Mo nitor Chronic High Risk Meds (chief complaint) AnxietyRA w/ rheumatoid factor of multiple sites w/o organ involvementO ther assisted (current) drug therapy 0 María Denis. [facility] [address], [place], [address], [place]. tel:[phone] , [facility] [address] [place] [address] [address], [place], [address].Refer ring Provider: Adeel Tang, [facility] [address], [place], [address]. tel:[phone] Office/Outpa tient Visit, Est [facility] , [address], [place], [address], [place] tel:[phone] [facility] , Rheumatoid arthritis (chief complaint)Mo nitor Chronic High Risk Meds (chief complaint) AnxietyRA w/ rheumatoid factor of multiple sites w/o organ involvementO ther assisted (current) drug therapy 0 María Denis. [facility] [address], [place], [address], [place]. tel:[phone] , [facility] [address] [place] [address] [address], [place], [address].Refer ring Provider: Adeel Tang, [facility] [address], [place], [address]. tel:[phone] Office/Outpa tient Visit, Est [facility] , [address], [place], [address], [place] tel:[phone] [facility] , Rheumatoid arthritis (chief complaint)Mo nitor Chronic High Risk Meds (chief complaint) AnxietyRA w/ rheumatoid factor of multiple sites w/o organ involvementO ther bed bug exterminator (current) drug therapy 8 9 María Denis. [facility] [address], [place], [address], [place]. tel:[phone] , [address], [place], [address].Refer ring Provider: Adeel Tang, [facility] [address], [place], [address]. tel:[phone] Office/Outpa tient Visit, Est [facility] , [address], [place], [address], [place] tel:[phone] [facility] , Rheumatoid arthritis (chief complaint)Mo nitor Chronic High Risk Meds (chief complaint) AnxietyRA w/ rheumatoid factor of multiple sites w/o organ involvementO ther bed bug exterminator (current) drug therapy 201 8 María Denis. [facility] [address], [place], [address], [place]. tel:[phone] , [address], [place], [address].Refer ring Provider: Adeel Tang, [facility] [address], [place], [address]. tel:[phone] Office/Outpa tient Visit, Est [facility] , [address], [place], [address], [place] tel:[phone] [facility] , Rheumatoid arthritis (chief complaint)Mo nitor Chronic High Risk Meds (chief complaint) RA w/ rheumatoid factor of multiple sites w/o organ involvementO ther assisted (current) drug therapyAnxie ty 9201 8 María Denis. [facility] [address], [place], [address], [place]. tel:[phone] Specialist: Tim Carrasquillo, [facility] [address] [place] [address] [address], [place], [address]. tel:[phone] ring Provider: Adeel Tang, [facility] [address], [place], [address]. tel:[phone] Office/Outpa tient Visit, Est [facility] , [address], [place], [address], [place] tel:[phone] [facility] , Rheumatoid arthritis (chief complaint)Mo nitor Chronic High Risk Meds (chief complaint) RA w/ rheumatoid factor of multiple sites w/o organ involvementO ther bed bug exterminator (current) drug therapy 201 7 María Denis. [facility] [address], [place], [address], [place]. tel:[phone] Specialist: Tim Carrasquillo, [facility] [address] [place] [address] [address], [place], [address]. tel:[phone] ring Provider: Adeel Tang, [facility] [address], [place], [address]. tel:[phone] [facility] , [address], [place], [address], [place] tel:[phone] [facility] , Rheumatoid arthritis (chief complaint)Mo nitor Chronic High Risk Meds (chief complaint) RA w/ rheumatoid factor of multiple sites w/o organ involvementO ther assisted (current) drug therapyPain in right shoulder María Denis. [facility] [address], [place], [address], [place]. tel:[phone] Specialist: Tim Carrasquillo, [address], [place], [address]. tel:[phone] ring Provider: Adeel Tang, [facility] [address], [place], [address]. tel:[phone] Office/Outpa tient Visit, Est [facility] , [address], [place], [address], [place] tel:[phone] [facility] , Rheumatoid arthritis (chief complaint)Mo nitor Chronic High Risk Meds (chief complaint) RA w/ rheumatoid factor of multiple sites w/o organ involvementO ther bed bug exterminator (current) drug therapy María Denis. [facility] [address], [place], [address], [place]. tel:[phone] Specialist: Tim Carrasquillo, [address], [place], [address]. tel:[phone] ring Provider: Adeel Tang, [facility] [address], [place], [address]. tel:[phone] Office/Outpa tient Visit, Est [facility] , [address], [place], [address], [place] tel:[phone] [facility] , Rheumatoid arthritis (chief complaint)Mo nitor Chronic High Risk Meds (chief complaint) RA w/ rheumatoid factor of multiple sites w/o organ involvementO ther assisted (current) drug therapyShoul velasquez joint pain 5 María Denis. [facility] [address], [place], [address], [place]. tel:[phone] Specialist: Tim Carrasquillo, [facility] [address] [place] [address] [address], [place], [address]. tel:[phone] [facility] Provider: Adele Tang, [facility] [address], [place], [address]. tel:[phone] Office/Outpa tient Visit, Est [facility] , [address], [place], [address], [place] tel:[phone] [facility] , Rheumatoid arthritis (chief complaint)Mo nitor Chronic High Risk Meds (chief complaint) Rheumatoid arthritisThe rapeutic Drug MonitoringFi nger joint contracture María Denis. [facility] [address], [place], [address], [place]. tel:[phone] Specialist: Tim Carrasquillo, [address], [place], [address]. tel:[phone] Provider: Adeel Tang, [facility] [address], [place], [address]. tel:[phone] Office/Outpa tient Visit, Est [facility] , [address], [place], [address], [place] tel:[phone] [facility] , Rheumatoid Arthritis (chief complaint) Rheumatoid ArthritisThe rapeutic Drug MonitoringPa in in joint involving lower leg 4 María Denis. [facility] [address], [place], [address], [place]. tel:[phone] Specialist: Tim Carrasquillo, [facility] [address], [place], [address]. tel:[phone] ring Provider: Adeel Tang, [facility] [address], [place], [address]. tel:[phone] Office/Outpa tient Visit, Est [facility] , [address], [place], [address], [place] tel:[phone] [facility] , Rheumatoid Arthritis (chief complaint) Rheumatoid ArthritisThe rapeutic Drug MonitoringPa in in joint involving lower legPain in joint involving shoulder regionUnspec ified disorder of skin and subcutaneous tissue 4 María Denis. [facility] [address], [place], [address], [place]. tel:[phone] Specialist: Tim Carrasquillo [facility] [address] [place] [address] [address], [place], [address]. tel:[phone] ring Provider: Adeel Tang, [facility] [address], [place], [address]. tel:[phone] Office/Outpa tient Visit, Est [facility] , [address], [place], [address], [place] tel:[phone] [facility] , Rheumatoid Arthritis (chief complaint) Rheumatoid ArthritisThe rapeutic Drug MonitoringPa in in joint involving shoulder region 4 María Denis. [facility] [address], [place], [address], [place]. tel:[phone] Specialist: Tim Carrasquillo [facility] [address], [place], [address]. tel:[phone] ring Provider: Adeel Tang, [facility] [address], [place], [address]. tel:[phone] Office/Outpa tient Visit, Est [facility] , [address], [place], [address], [place] tel:[phone] [facility] , Rheumatoid Arthritis (chief complaint) Rheumatoid ArthritisThe rapeutic Drug MonitoringLO NG-TERM (CURRENT) USE OF STEROIDS 3 María Denis. [facility] [address], [place], [address], [place]. tel:[phone] Specialist: Tim Carrasquillo, [facility] [address] [place] [address] [address], [place], [address]. tel:[phone] ring Provider: Adeel Tang, [facility] [address], [place], [address]. tel:[phone] Office/Outpa tient Visit, Est [facility] , [address], [place], [address], [place] tel:[phone] [facility] , Rheumatoid Arthritis (chief complaint) Rheumatoid ArthritisThe rapeutic Drug MonitoringLO NG-TERM (CURRENT) USE OF STEROIDSCoug h 3 María Denis. [facility] [address], [place], [address], [place]. tel:[phone] Specialist: Tim Carrasquillo, [facility] [address], [place], [address]. tel:[phone] ring Provider: Adeel Tang, [facility] [address], [place], [address]. tel:[phone] Office/Outpa tient Visit, Est [facility] , [address], [place], [address], [place] tel:[phone] [facility] , Rheumatoid Arthritis (chief complaint) Rheumatoid ArthritisThe rapeutic Drug MonitoringLO NG-TERM (CURRENT) USE OF STEROIDS 3 María Denis. [facility] [address], [place], [address], [place]. tel:[phone] Specialist: Tim Carrasquillo, [facility] [address] [place] [address] [address], [place], [address]. tel:[phone] ring Provider: Adeel Tang, [facility] [address], [place], [address]. tel:[phone] Office/Outpa tient Visit, Est [facility] , [address], [place], [address], [place] tel:[phone] [facility] , Rheumatoid Arthritis (chief complaint) Rheumatoid ArthritisThe rapeutic Drug MonitoringUl cer of ankle 3 María Denis. [facility] [address], [place], [address], [place]. tel:[phone] Specialist: Tim Carrasquillo, [address], [place], [address]. tel:[phone] ring Provider: Adeel Tang, [facility] [address], [place], [address]. tel:[phone] Office/Outpa tient Visit, Est [facility] , [address], [place], [address], [place] tel:[phone] [facility] , Rheumatoid Arthritis (chief complaint) Rheumatoid ArthritisThe rapeutic Drug MonitoringLO NG-TERM (CURRENT) USE OF STEROIDS Dec-0 7-201 2 María Denis. [facility] [address], [place], [address], [place]. tel:[phone] Specialist: Tim Carrasquillo, [facility] [address] [place] [address] [address], [place], [address]. tel:[phone] ring Provider: Adeel Tang, [facility] [address], [place], [address]. tel:[phone] Office/Outpa tient Visit, Est [facility] , [address], [place], [address], [place] tel:[phone] [facility] , Rheumatoid Arthritis (chief complaint) Rheumatoid ArthritisLON G-TERM (CURRENT) USE OF STEROIDS Nov-0 2-201 2 María Adeel. [facility] [address], [place], [address], [place]. tel:[phone] Specialist: Tim Carrasquillo, [facility] [address] [place] [address] [address], [place], [address]. tel:[phone] ring Provider: Adeel Tang, [facility] [address], [place], [address]. tel:[phone] Office/Outpa tient Visit, New [facility] , [address], [place], [address], [place] tel:[phone] [facility] , Pulmonary infiltrates (chief complaint) Unspecified inflammatory polyarthropa thyLONG-TERM (CURRENT) USE OF STEROIDS 2 María Denis. [facility] [address], [place], [address], [place]. tel:[phone] Specialist: Tim Carrasquillo, [facility] [address], [place], [address]. tel:[phone] ring Provider: Adeel Tang, [facility] [address], [place], [address]. tel:[phone] Family History Family Member Type Diagnosis Age At Onset Sister Problem (finding) malignant neoplasm of o vary Father Problem (finding) cancer of colon Immunizations Vaccine Date Status Comments COVID-19 [employer] administered S ource: Other Provider Payers Payer name Insurance type Covered libertarian ID Authorizradha rogers(s) [facility] [id number] Social History Type Description Quantity Date Captured [...] safety monitoring ophthalmologic evaluation. Related to Other assisted (current) drug therapy Continue hydroxychlo roquine 400 [...] safety monitoring ophthalmologic evaluation. Related to Other assisted (current) drug therapy Continue hydroxychlo roquine 400 [...] safety monitoring ophthalmologic evaluation. Related to Other bed bug exterminator (current) drug therapy Continue input as ne [...] safety monitoring ophthalmologic evaluation. Related to Other assisted (current) drug therapy Continue input as ne [...] performed every 3 months. Related to Other bed bug exterminator (current) drug therapy Continue input as ne eded with her primary care provider or psychologist/psychiatrist. Related to Anxiety Continue current ant i-rheumatic medications unchanged.I will consider PFT and potential update of chest imaging. 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 Related to Other bed bug exterminator (current) drug therapy I again urged ruel [...] performed every 3 months. Related to Other bed bug exterminator (current) drug therapy I urged patient to u pdate her evaluation with her primary care provider or a psychologist/psychiatrist. Related to Anxiety Continue current ant i-rheumatic medications unchanged.I will strongly consider PFT and potential update of chest imaging.The patient may be moving to [facility] if her gets the new job that they anticipate. 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 Related to Other assisted (current) drug therapy Continue current ant i-rheumatic medications unchanged.The patient may be moving to [facility] if her gets the new job that they anticipate. 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 Related to Other bed bug exterminator (current) drug therapy I encouraged the pat [...] performed every 3 months. Related to Other assisted (current) drug therapy Continue current ant i-rheumatic medications unchanged, except option to decrease prednisone from 5 milligrams to 4 milligrams per day.We will consider left knee joint corticosteroid injection. 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 Related to Other bed bug exterminator (current) drug therapy After discussion of potential treatment options, risks and benefits, the patient and I are in agreement with pursuing local corticosteroid injection. Related to Shoulder joint pain The patient will hav e CBC, Cr, transaminases and albumin performed every 2-3 months. Related to Other bed bug exterminator (current) drug therapy Continue current ant i-rheumatic [...]
== END 2024-03-07 08:26 | disposition home or self-care (01) ==
LOC: WOUND 08:25
PROVIDERS: PCP Family Medicine; Visit Provider Surgery
DX: I87.2 Venous insufficiency (chronic) (peripheral) (principal); M06.9 Rheumatoid arthritis, unspecified
CPT/HCPCS: G0463

== ENCOUNTER 2025-01-18 09:17 | Emergency (ER) | payer BC, SELFPAY ==
[2025-01-18] VITALS (12 sets, daily range): BP systolic 134–142; BP diastolic 76–92; PULSE 81–125; RESP 11–21; TEMP 36.4; O2SAT 93–100; BMI 35.2
--- OUTSIDE RECORDS SUMMARY | 2025-01-18 09:20 | XMS_ITS | Clinical Summary ---
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 No 2022 Comments No Sex and Gender Information Value Date Recorded Sex Assigned at Not on file Legal Sex Female 9:23 AM CDT Gender Identity Not on file Sexual Orientation Not on file Last Filed Vital Signs Vital Sign Reading Time Taken Comments Blood Pressure 162/101 01/12/2023 3:20 AM CDT Pulse 104 01/12/2023 3:20 AM CDT Temperature 36.8 C (98.2 F) 01/12/2023 1:40 AM CDT Respiratory Rate 13 01/12/2023 3:20 AM CDT [...] (Standing Order) 1980 TETANUS (Standing Order) 1980 Pneumococcal Vaccine: 50+ yr s (Standing Order) (1 of 1 - PCV) 2011 Shingrix (Zoster recombinant ) vaccine (Standing Order) (1 of 2) 2011 RSV Vaccination (60+ yrs) (Abrysvo/Arexvy) (1 - 1-dose 75+ series) 2036 HPV Vaccine (Standing Order) Aged Out No longer eligible based on patient's age to complete this topic Hepatitis B Vaccine (Standin g Order) Aged Out No longer eligible b ased on patient's age to complete this topic Insurance [facility]
--- OUTSIDE RECORDS SUMMARY | 2025-01-18 09:20 | XMS_ITS | Clinical Summary ---
Author Organization [facility] Address [address] [place] [address]. [place] [address] Care Team Providers Care Dyed Yarn Operator Name Role Phone Case Gao Sierra Primary Care Provider [phone] Allergies Active Allergy Reactions Criticality Noted Date Comments Aspirin Anaphylaxis High 01/25/2021 Medications predniSONE (DELTASONE) 5 MG tablet Take 1 tablet by mouth as needed Active methotrexate 2.5 MG tablet Take 10 tablets by mouth every 7 days Wednesdays (10 x 2.5 mg = 25 mg) Active etanercept (ENBREL) 50 MG/ML injection Inject 50 mg Subcutaneous once a week Wednesdays Active folic acid (FOLVITE) 1 MG tablet Take 1 mg by mouth daily Active hydroxychloroquin e (PLAQUENIL) 200 MG tablet Take 2 tablets by mouth every morning (2 x 200 mg = 400 mg) Active lisinopril-hydroc hlorothiazide (ZESTORETIC) 10-12.5 MG tablet Take 1 tablet by mouth daily Active venlafaxine (EFFEXOR) 75 MG tablet Take 3 tablets by mouth 2 times daily (3 x 75 mg = 225 mg) Active levETIRAcetam (KEPPRA) 500 MG tablet Take 2 tablets by mouth 2 times daily (2 x 500 mg = 1,000 mg) Active hydrOXYzine (ATARAX) 25 MG tabletIndications :Status post total hip replacement, left Take 1 tablet (25 mg) by mouth every 6 hours as needed for itching or anxiety (with pain, moderate pain) 337.5 tablet 03/25/20 Active acetaminophen (TYLENOL) 325 MG tabletIndications :Periprosthetic hip fracture, initial encounter Take 3 tablets (975 mg) by mouth every 8 hours as needed for mild pain 60 tablet 04/10/20 23 Active HYDROmorphone (DILAUDID) 2 MG tabletIndications :Periprosthetic hip fracture, initial encounter Take 1 tablet (2 mg) by mouth every 3 hours as needed for severe pain 20 tablet 04/10/20 23 Active senna-docusate (SENOKOT-S/TARAH LACE) 8.6-50 MG tabletIndications :Periprosthetic hip fracture, initial encounter Take 1 tablet by mouth 2 times daily as needed for constipation 04/11/20 23 Active warfarin ANTICOAGULANT (COUMADIN) 2.5 MG tabletIndications :Status post hip replacement, unspecified laterality Take 5 mg daily on 04/12 and 04/13 and then check INR for further dosing 20 tablet 04/12/20 23 Active Active Problems Problem Noted Date Diagnosed [...] School Help Needed Not on file 05/27 Comments No Sex and Gender Information Value Date Recorded Sex Assigned at Not on file Legal Sex Female 12:41 PM [employer] AUTHOR Gender Identity Not on file Sexual Orientation Not on file Last Filed Vital Signs Vital Sign Reading Time Taken Comments Blood Pressure 118/44 04/12/2023 7:41 AM CDT Pulse 94 04/12/2023 7:41 AM CDT Temperature 36.3 C (97.3 F) 04/12/2023 7:41 AM CDT Respiratory Rate 12 04/12/2023 7:41 AM CDT [...] 1961 FLEX SIG 1961 MAMMO SCREENING 1961 sDNA (Cologuard) 1961 YEARLY PREVENTIVE VISIT 1964 HIV SCREENING 1976 HEPATITIS C SCREENING 1979 ZOSTER IMMUNIZATION (1 of 2) 1980 PAP 1982 LIPID 2001 Pneumococcal Vaccine: 50+ Years (2 of 2 - PPSV23) 08/29/2014 07/04/2014 COVID-19 Vaccine (3 - Moderna risk series) 11/21/2020 10/24/2020, 09/26/2020 RSV VACCINE (1 - Risk 60-74 years 1-dose series) 2021 PHQ-2 (once per calendar year) 2024 INFLUENZA VACCINE (Season Ended) 2025 06/24/2020, 06/14/2019, 05/24/2018, Additional history exists DIABETES SCREENING 04/10/2026 04/10/2023, 0 04/10/2023, 04/09/2023, Additional history exists DTAP/TDAP/TD IMMUNIZATION (3 [...] Total Joint Replacement Hip Pathway [employer] Implanted Type Area Slide Developer Device Identifier Shelf Expiration Date Model / Serial / Lot Insert Actb 42mm 28mm E Hip X3 Adm Strl Lf [facility] 7236-2-848 - [id number] Implanted:Qty: 1 on 04/08/2023 by Fazal Ramirez MD at [facility] Metallic Hardware/An chor Left: Hip [employer]W [employer] [id number] 10/07/2027 7236-2-8 48 / / [id number] Trident Ii Tritanium Clusterhole 52e - [id number] Implanted:Qty: 1 on 03/25/2023 by Cj Chen MD at [facility] Total Joint Component/I nsert Left: Hip [employer] 12/29/2027 702-04-5 2E / / [id number] A Insert El 36mm 0deg X3 723-00-36e - [id number] Implanted:Qty: 1 on 03/25/2023 by Cj Chen MD at [facility] Total Joint Component/I nsert Left: Hip [employer] 12/24/2027 723-00-3 6E / / [id number] Imp Stem Fem Rstrtn Mod Bowed Conical [id number] 6276-7-219 - [id number] Implanted:Qty: 1 on 04/08/2023 by Fazal Ramirez MD at [facility] Total Joint Component/I nsert Left: Hip [employer] [id number] 02/14/2027 6276-7-2 19 / / [id number] Imp Insert Acet Strk Mdm Cocr Hip 0deg 42mm Sz E 626-00-42e - [id number] Implanted:Qty: 1 on 04/08/2023 by Fazal Ramirez MD at [facility] Total Joint Component/I nsert Left: Hip [employer] [id number] 01/13/2028 626-00-4 2E / / [id number] Imp Stem Fem Mod Rev Hip Prox Body/Cavour 19mm +10 6276-1-119 - [id number] Implanted:Qty: 1 on 04/08/2023 by Fazal Ramirez MD at [facility] Total Joint Component/I nsert Left: Hip [employer]W [employer] [id number] 08/15/2024 6276-1-1 [id number] Imp Head Femoral Strk [employer] 28mm +4mm - [id number] Implanted:Qty: 1 on 04/08/2023 by Fazal Ramirez MD at [facility] Total Joint Component/I nsert Left: Hip [employer] [id number] 10/31/2027 6570-0-2 / / [id number] Fibertape Cerclage, 2mm, 48 Implanted:Qty: 3 on 04/08/2023 by Fazal Ramirez MD at [facility] Left: Hip [employer] 06/04/2027 AR-7268 / / [id number] Fibertape Cerclage, 2mm, 48 Implanted:Qty: 1 on 04/08/2023 by Fazal Ramirez MD at [facility] Left: Hip AR[employer] 01/03/2028 AR-7268 / [id number] / Fibertape Cerclage, 2mm, 48 Implanted:Qty: 1 on 04/08/2023 by Fazal Ramirez MD at [facility] Left: Hip [employer] 11/03/2027 AR-7268 / / [id number] Explanted Type Area Slide Developer Device Identifier Shelf Expiration Date Model / Serial / Lot Imp Stem Femoral Hip Strk Accolade Ii 132deg Sz 5 [id number] - [id number] Implanted:Qty: 1 on 03/25/2023 by Cj Chen MD at [facility] Explanted:Qty: 1 on 04/08/2023 by Fazal Ramirez MD at [facility] Total Joint Component /Insert Left: Hip [employer] 03/03/2027 8820-7610 / / [id number] Imp Head Femoral Strk Biolox Delta Ceramic 36mm +2.5mm - [id number] Implanted:Qty: 1 on 03/25/2023 by Cj Chen MD at [facility] Explanted:Qty: 1 on 04/08/2023 by Fazal Ramirez MD at [facility] Total Joint Component /Insert Left: Hip [employer] 12/07/2027 6570-0-536 / / [id number] 6.5 Mm Cannulated Screws, 16mm Thread Length 80mm Implanted:Qty: 3 on 01/25/2021 by Cj Chen MD at [facility] Explanted:Qty: 3 on 03/25/2023 by Cj Chen MD at [facility] Left: Hip SYNTHES [id number] 24 JAN 2021 Titanium Washer, 13.0 Mm Implanted:Qty: 3 on 01/25/2021 by Cj Chen MD at [facility] Explanted:Qty: 3 on 03/25/2023 by Cj Chen MD at [facility] Left: Hip SYNTHES 419.99 24 JAN 2021 8002 Procedures Procedure Name Priority Date/Time Associated Diagnosis Comments GLUCOSE Routine 04/10/2023 7:07 AM CDT COLONOSCOPY - HIM SCAN 10/25/2022 12:00 AM M[employer]IM[employer]IA AUTHOR from Last 3 Months or Most Recently Relevant to Health Maintenance Results * (ABNORMAL) Glucose (04/10/2023 7:07 AM CDT) Glucose 108(H) 70 - 99 mg/dL 04/10/2023 7:36 AM CDT LABORATORY Blood STRUCTURE OF RIGHT UPPER LIMB / Unknown Venipuncture / Unknown 04/10/2023 7:07 AM CDT 04/10/2023 7:12 AM CDT Jonathan Linn MD LAB - BLOOD ORDERABLES Final Result LABORATORY [facility] [address] Lab (1st floor, no room number) [place] [address], [place] [phone] * COLONOSCOPY - HIM SCAN (10/25/2022 12:00 AM MULTIMEDIA AUTHOR) 10/25/2022 Provider Outside PROCEDURES Final Result from Last 3 Months or Most Recently Relevant to Health Maintenance Additional Health Concerns Active Problems Noted Date Diagnosed Date Total Joint Replacement Hip Pathway 03/15/2023 Insurance [facility] Advance Directives For more information, please contact: [phone] * Full Code (Latest Code Status on [...] carmen nt/ legal decision maker Care Teams Dyed Yarn Operator Relationship Specialty Start Date End Date Case [facility]ao [address] [facility] [id number] [facility] - General Family Medicine 01/25/21
--- OUTSIDE RECORDS SUMMARY | 2025-01-18 09:20 | XMS_ITS | Continuity of Care Document ---
Author Organization [facility] Address [address] [place] [address] Phone Care Team Providers Care [employer] Head Name Role Phone Poolrama Pearl BELLO Sarah Unavailable Unavailab le Allergies, Adverse Reactions, Alerts Substance Reaction Status Criticality aspirin Active No Information Medications Medication Instructions Dosage Effective Dates (start - stop) Status Comments Enbrel SureClick 50 mg/mL (1 mL) subcutaneous pen injector inject 1 milliliter by subcutaneous route every week 50 MG - Active methotrexate sodium 2.5 mg tablet TAKE 10 TABLETS ONCE A WEEK - Active FOLIC ACID TABS 1MG TAKE 1 TABLET DAILY 5 - Active Keppra 500 mg tablet take 2 tablet by or al route 2 times every day 1000 MG - Active hydroxyzine HCl 25 mg tablet take 1 tablet by oral route 4 times every day as needed as needed 25 MG - Active venlafaxine 75 mg tablet take 3 tablets twice daily - Active Procedures Procedure Date Office/Outpatient Visit, Est Complex e/m visit add on Office/Outpatient Visit, Est Complex e/m visit add on Office/Outpatient Visit, Est Office/Outpatient Visit, Est Routine Venipuncture Rbc Sed [...] Diagnoses Date Provider Providers Copied on Encounter Office/Outpa tient Visit, Est [facility] , [address], [place], [address], [place] tel:[phone] [facility] , Rheumatoid arthritis with rheumatoid factor 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 systems involvementO ther terminal gauger supervisor (current) drug therapy Dec-0 5 Philippe Smith. [address], [place], [address], [place]. tel:[phone] Referring Provider: Sarah Epperson, [address], [place], [address]. tel:[phone] [facility] , [address], [place], [address], [place] tel:[phone] [facility] , No Information 5 Philippe Smith. [address], [place], [address], [place]. tel:[phone] [facility] , [address], [place], [address], [place] tel:[phone] [facility] No Information 5 Philippe Smith. [address], [place], [address], [place]. tel:[phone] Office/Outpa tient Visit, Est [facility] , [address], [place], [address], [place] tel:[phone] Telehealth Rheumatoid arthritis with rheumatoid factor 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 systems involvementO ther terminal gauger supervisor (current) drug therapy 4 Philippe Smith. [address], [place], [address], [place]. tel:[phone] Referring Provider: Sarah Epperson, [address], [place], [address]. tel:[phone] Office/Outpa tient Visit, Est [facility] , [address], [place], [address], [place] tel:[phone] [facility] , Rheumatoid arthritis with rheumatoid factor 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 systems involvementO ther jail (current) drug therapy 4 Philippe Smith. [address], [place], [address], [place]. tel:[phone] Referring Provider: Sarah Epperson, [address], [place], [address]. tel:[phone] Office/Outpa tient Visit, Est [facility] , [address], [place], [address], [place] tel:[phone] [facility] , Rheumatoid arthritis with rheumatoid factor 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 systems involvementO ther terminal gauger supervisor (current) drug therapy 4 Philippe Smith. [address], [place], [address], [place]. tel:[phone] Referring Provider: Sarah Epperson, [address], [place], [address]. tel:[phone] Office/Outpa tient Visit, Est [facility] , [address], [place], [address], [place] tel:[phone] [facility] , Rheumatoid arthritis (chief complaint)Mo nitor Chronic High Risk Meds (chief complaint) RA w/ rheumatoid factor of multiple sites w/o organ involvementO ther jail (current) drug therapyOther dorsalgia 3 María Denis. [facility] [address], [place], [address], [place]. tel:[phone] , [facility] [address], [place], [address].Refer ring Provider: Adeel Tang, [facility] [address], [place], [address]. tel:[phone] Office/Outpa tient Visit, Est [facility] , [address], [place], [address], [place] tel:[phone] [facility] , Rheumatoid arthritis (chief complaint)Mo nitor Chronic High Risk Meds (chief complaint) RA w/ rheumatoid factor of multiple sites w/o organ involvementO ther jail (current) drug therapy 2 María Denis. [facility] [address], [place], [address], [place]. tel:[phone] , [address], [place], [address].Refer ring Provider: Adeel Tang, [facility] [address], [place], [address]. tel:[phone] [facility] , [address], [place], [address], [place] [phone] [facility] , No Information 2 María Denis. [facility] [address], [place], [address], [place]. [phone] Referring Provider: Adeel Tang, [facility] [address], [place], [address]. tel:[phone] Office/Outpa tient Visit, Est [facility] , [address], [place], [address], [place] tel:[phone] [facility] , Rheumatoid arthritis (chief complaint)Mo nitor Chronic High Risk Meds (chief complaint) RA w/ rheumatoid factor of multiple sites w/o organ involvementO ther jail (current) drug therapy 1 María Denis. [facility] [address], [place], [address], [place]. tel:[phone] , [facility] [address] [place] [address] [address], [place], [address].Refer ring Provider: Adeel Tang, [facility] [address], [place], [address]. tel:[phone] Office/Outpa tient Visit, Est [facility] , [address], [place], [address], [place] tel:[phone] [facility] , Rheumatoid arthritis (chief complaint)Mo nitor Chronic High Risk Meds (chief complaint) AnxietyRA w/ rheumatoid factor of multiple sites w/o organ involvementO ther terminal gauger supervisor (current) drug therapy 0 María Denis. [facility] [address], [place], [address], [place]. [phone] , [address], [place], [address].Refer ring Provider: Adeel Tang, [facility] [address], [place], [address]. tel:[phone] Office/Outpa tient Visit, Est [facility] , [address], [place], [address], [place] tel:[phone] [facility] , Rheumatoid arthritis (chief complaint)Mo nitor Chronic High Risk Meds (chief complaint) AnxietyRA w/ rheumatoid factor of multiple sites w/o organ involvementO ther jail (current) drug therapy 2-202 0 María Denis. [facility] [address], [place], [address], [place]. tel:[phone] , [address], [place], [address].Refer ring Provider: Adeel Tang, [facility] [address], [place], [address]. tel:[phone] Office/Outpa tient Visit, Est [facility] , [address], [place], [address], [place] tel:[phone] [facility] , Rheumatoid arthritis (chief complaint)Mo nitor Chronic High Risk Meds (chief complaint) AnxietyRA w/ rheumatoid factor of multiple sites w/o organ involvementO ther terminal gauger supervisor (current) drug therapy 201 9 María Denis. [facility] [address], [place], [address], [place]. tel:[phone] , [address], [place], [address].Refer ring Provider: Adeel Tang, [facility] [address], [place], [address]. tel:[phone] Office/Outpa tient Visit, Est [facility] , [address], [place], [address], [place] tel:[phone] [facility] , Rheumatoid arthritis (chief complaint)Mo nitor Chronic High Risk Meds (chief complaint) AnxietyRA w/ rheumatoid factor of multiple sites w/o organ involvementO ther jail (current) drug therapy Aug- 8 María Denis. [facility] [address], [place], [address], [place]. tel:[phone] , [facility] [address], [place], [address].Refer ring Provider: Adeel Tang, [facility] [address], [place], [address]. tel:[phone] Office/Outpa tient Visit, Est [facility] , [address], [place], [address], [place] tel:[phone] [facility] , Rheumatoid arthritis (chief complaint)Mo nitor Chronic High Risk Meds (chief complaint) RA w/ rheumatoid factor of multiple sites w/o organ involvementO ther jail (current) drug therapyAnxie ty Nov- 8 María Denis. [facility] [address], [place], [address], [place]. tel:[phone] Specialist: Tim Carrasquillo, [facility] [address] [place] [address] [address], [place], [address]. tel:[phone] ring Provider: Adeel Tang, [facility] [address], [place], [address]. tel:[phone] Office/Outpa tient Visit, Est [facility] , [address], [place], [address], [place] tel:[phone] [facility] , Rheumatoid arthritis (chief complaint)Mo nitor Chronic High Risk Meds (chief complaint) RA w/ rheumatoid factor of multiple sites w/o organ involvementO ther terminal gauger supervisor (current) drug therapy María Denis. [facility] [address], [place], [address], [place]. tel:[phone] Specialist: Tim Carrasquillo, [address], [place], [address]. tel:[phone] Provider: Adeel Tang, [facility] [address], [place], [address]. tel:[phone] [facility] , [address], [place], [address], [place] tel:[phone] [facility] , Rheumatoid arthritis (chief complaint)Mo nitor Chronic High Risk Meds (chief complaint) RA w/ rheumatoid factor of multiple sites w/o organ involvementO ther jail (current) drug therapyPain in right shoulder María Denis. [facility] [address], [place], [address], [place]. tel:[phone] Specialist: Tim Carrasquillo, [address], [place], [address]. tel:[phone] Provider: Adeel Tang, [facility] [address], [place], [address]. tel:[phone] Office/Outpa tient Visit, Est [facility] , [address], [place], [address], [place] tel:[phone] [facility] , Rheumatoid arthritis (chief complaint)Mo nitor Chronic High Risk Meds (chief complaint) RA w/ rheumatoid factor of multiple sites w/o organ involvementO ther terminal gauger supervisor (current) drug therapy 6 María Denis. [facility] [address], [place], [address], [place]. tel:[phone] Specialist: Tim Carrasquillo, [facility] [address], [place], [address]. tel:[phone] ring Provider: Adeel Tang, [facility] [address], [place], [address]. tel:[phone] Office/Outpa tient Visit, Est [facility] , [address], [place], [address], [place] tel:[phone] [facility] , Rheumatoid arthritis (chief complaint)Mo nitor Chronic High Risk Meds (chief complaint) RA w/ rheumatoid factor of multiple sites w/o organ involvementO ther jail (current) drug therapyShoul velasquez joint pain María Denis. [facility] [address], [place], [address], [place]. tel:[phone] Specialist: Tim Carrasquillo, [facility] [address], [place], [address]. tel:[phone] ring Provider: Adeel Tang, [facility] [address], [place], [address]. tel:[phone] Office/Outpa tient Visit, Est [facility] , [address], [place], [address], [place] tel:[phone] [facility] , Rheumatoid arthritis (chief complaint)Mo nitor Chronic High Risk Meds (chief complaint) Rheumatoid arthritisThe rapeutic Drug MonitoringFi nger joint contracture 5 María Denis. [facility] [address], [place], [address], [place]. tel:[phone] Specialist: Tim Carrasquillo, [facility] [address] [place] [address] [address], [place], [address]. tel:[phone] ring Provider: Adeel Tang, [facility] [address], [place], [address]. tel:[phone] Office/Outpa tient Visit, Est [facility] , [address], [place], [address], [place] tel:[phone] [facility] , Rheumatoid Arthritis (chief complaint) Rheumatoid ArthritisThe rapeutic Drug MonitoringPa in in joint involving lower leg Dec-0 4 María Denis. [facility] [address], [place], [address], [place]. tel:[phone] Specialist: Tim Carrasquillo, [facility] [address], [place], [address]. tel:[phone] Provider: Adeel Tang, [facility] [address], [place], [address]. tel:[phone] Office/Outpa tient Visit, Est [facility] , [address], [place], [address], [place] tel:[phone] [facility] , Rheumatoid Arthritis (chief complaint) Rheumatoid ArthritisThe rapeutic Drug MonitoringPa in in joint involving lower legPain in joint involving shoulder regionUnspec ified disorder of skin and subcutaneous tissue Channing-0 2201 4 María Denis. [facility] [address], [place], [address], [place]. tel:[phone] Specialist: Tim Carrasquillo [facility] [address], [place], [address]. tel:[phone] ring Provider: Adeel Tang, [facility] [address], [place], [address]. tel:[phone] Office/Outpa tient Visit, Est [facility] , [address], [place], [address], [place] tel:[phone] [facility] , Rheumatoid Arthritis (chief complaint) Rheumatoid ArthritisThe rapeutic Drug MonitoringPa in in joint involving shoulder region María Denis. [facility] [address], [place], [address], [place]. tel:[phone] Specialist: Tim Carrasquillo, [facility] [address], [place], [address]. tel:[phone] ring Provider: Adeel Tang, [facility] [address], [place], [address]. tel:[phone] Office/Outpa tient Visit, Est [facility] , [address], [place], [address], [place] tel:[phone] [facility] , Rheumatoid Arthritis (chief complaint) Rheumatoid ArthritisThe rapeutic Drug MonitoringLO NG-TERM (CURRENT) USE OF STEROIDS 3 María Denis. [facility] [address], [place], [address], [place]. tel:[phone] Specialist: Tim Carrasquillo, [facility] [address], [place], [address]. tel:[phone] ring Provider: Adeel Tang, [facility] [address], [place], [address]. tel:[phone] Office/Outpa tient Visit, Est [facility] , [address], [place], [address], [place] tel:[phone] [facility] , Rheumatoid Arthritis (chief complaint) Rheumatoid ArthritisThe rapeutic Drug MonitoringLO NG-TERM (CURRENT) USE OF STEROIDSCoug h 3 María Denis. [facility] [address], [place], [address], [place]. tel:[phone] Specialist: Tim Carrasquillo, [address], [place], [address]. tel:[phone] ring Provider: Adeel Tang, [facility] [address], [place], [address]. tel:[phone] Office/Outpa tient Visit, Est [facility] , [address], [place], [address], [place] tel:[phone] [facility] , Rheumatoid Arthritis (chief complaint) Rheumatoid ArthritisThe rapeutic Drug MonitoringLO NG-TERM (CURRENT) USE OF STEROIDS 3 María Denis. [facility] [address], [place], [address], [place]. tel:[phone] Specialist: Tim Carrasquillo, [address], [place], [address]. tel:[phone] ring Provider: Adeel Tang, [facility] [address], [place], [address]. tel:[phone] Office/Outpa tient Visit, Est [facility] , [address], [place], [address], [place] tel:[phone] [facility] , Rheumatoid Arthritis (chief complaint) Rheumatoid ArthritisThe rapeutic Drug MonitoringUl cer of ankle 3 María Adeel. [facility] [address], [place], [address], [place]. tel:[phone] Specialist: Tim Carrasquillo, [facility] [address] [place] [address] [address], [place], [address]. tel:[phone] ring Provider: Adeel Tang, [facility] [address], [place], [address]. tel:[phone] Office/Outpa tient Visit, Est [facility] , [address], [place], [address], [place] tel:[phone] [facility] , Rheumatoid Arthritis (chief complaint) Rheumatoid ArthritisThe rapeutic Drug MonitoringLO NG-TERM (CURRENT) USE OF STEROIDS Aug- 2 María Adeel. [facility] [address], [place], [address], [place]. tel:[phone] Specialist: Tim Carrasquillo, [facility] [address] [place] [address] [address], [place], [address]. tel:[phone] ring Provider: Adeel Tang, [facility] [address], [place], [address]. tel:[phone] Office/Outpa tient Visit, Est [facility] , [address], [place], [address], [place] tel:[phone] [facility] , Rheumatoid Arthritis (chief complaint) Rheumatoid ArthritisLON G-TERM (CURRENT) USE OF STEROIDS Nov-0 2-201 2 María Denis. [facility] [address], [place], [address], [place]. tel:[phone] Specialist: Tim Carrasquillo, [facility] [address], [place], [address]. tel:[phone] ring Provider: Adeel Tang, [facility] [address], [place], [address]. tel:[phone] Office/Outpa tient Visit, New [facility] , [address], [place], [address], [place] tel:[phone] [facility] , Pulmonary infiltrates (chief complaint) Unspecified inflammatory polyarthropa thyLONG-TERM (CURRENT) USE OF STEROIDS 2 María Denis. [facility] [address], [place], [address], [place]. tel:[phone] Specialist: Tim Carrasquillo, [facility] [address], [place], [address]. tel:[phone] Provider: Adeel Tang, [facility] [address], [place], [address]. tel:[phone] Family History Family Member Type Diagnosis Age At Onset Sister Problem (finding) malignant neoplasm of o vary Father Problem (finding) cancer of colon Immunizations Vaccine Date Status Comments COVID-19 [employer] administered S ource: Other Provider Payers Payer name Insurance type Covered libertarian ID Authoriza tion(s) [facility] [id number] Social History Type Description Quantity Date Captured Comments Alcohol Use Details Unknown Caffeine Use Details Unknown Tobacco Use Status Current non-smoker Smoking Status Never smoker Reviewe d and updated 4/9/25 Non-Smoking Tobacco Use Details : No Details Available : No Details Available Sex Female Vital Signs Date / Time: Height Weight BMI Pulse Rate Blood Pressure Temperature Respiratory Rate Body Surface Area Head Circumference Head Circ. Percentile Wt./Abe. Percentile BMI percentile Pulse Ox Inhaled Ox 1:54 PM 67.00 in 104.326 kg (230.00 lbs) 36.0 2 kg/m eter (2) 97.60 F Chief Complaint And Reason For Visit No [...] Meds Functional Status Date Functional Assessmen t Pain Score 6/10 Instructions Date Instruction Additional Infor tom Pursue [...] monitoring ophthalmologic evaluation. Related to Other terminal gauger supervisor (current) drug therapy Continue hydroxychlo roquine [...] monitoring ophthalmologic evaluation. Related to Other terminal gauger supervisor (current) drug therapy Continue hydroxychlo roquine [...] safety monitoring ophthalmologic evaluation. Related to Other jail (current) drug therapy Continue input as ne [...] safety monitoring ophthalmologic evaluation. Related to Other jail (current) drug therapy Continue input as ne [...] every 3 months. Related to Other terminal gauger supervisor (current) drug therapy Continue input as [...] every 3 months. Related to Other terminal gauger supervisor (current) drug therapy I again urged [...] every 3 months. Related to Other terminal gauger supervisor (current) drug therapy I urged patient to u pdate her evaluation with her primary care provider or a psychologist/psychiatrist. Related to Anxiety Continue current ant i-rheumatic medications unchanged.I will strongly consider PFT and potential update of chest imaging.The patient may be moving to [facility] if her gets the new job that they anticipate. 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 Related to Other terminal gauger supervisor (current) drug therapy Continue current ant i-rheumatic medications unchanged.The patient may be moving to [facility] if her gets the new job that they anticipate. 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 Related to Other jail (current) drug therapy I encouraged the pat [...] performed every 3 months. Related to Other jail (current) drug therapy Continue current ant i-rheumatic medications unchanged, except option to decrease prednisone from 5 milligrams to 4 milligrams per day.We will consider left knee joint corticosteroid injection. 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 Related to Other jail (current) drug therapy After discussion of potential treatment options, risks and benefits, the patient and I are in agreement with pursuing local corticosteroid injection. Related to Shoulder joint pain The patient will hav e CBC, Cr, transaminases and albumin performed every 2-3 months. Related to Other jail (current) drug therapy Continue current ant i-rheumatic [...] to Rheumatoid arthritis Assessments Type Assessment Date assessment Rheumatoid arthritis with rheumatoid factor 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 systems involvement impression She had presented in 2011 with pulmonary infiltrates, groundglass opacities, hemoptysis and highly positive rheumatoid factor and CCP. She also had at the time of diagnosis of positive ANCA titer with MT-3 positivity which eventually turned negative. She does not have any other features concerning for GPA. Do feel she has rheumatoid arthritis. She has been off much of her medications for the past 6 months given her hip arthroplasty and periprosthetic fracture as well as chronic lower leg wound that has been infected and difficult to heal. I am concerned that she is flaring from her rheumatoid arthritis given the amount of synovitis on exam today. She is back on methotrexate and ENbrel so I am hopeful we will get it under better control. assessment Other terminal gauger supervisor (current) drug t herapy impression At this juncture, co ntinue methotrexate weekly with daily folic acid. Potential side effects of the medication were discussed with the patient which include: fatigue, alopecia, photosensitive rash, oral ulcers, diarrhea, nausea and vomiting, dizziness, cytopenias, nephrotoxicity, hepatotoxicity, and interstitial lung disease. Patient will take folic acid 1mg daily to help offset side effects of methotrexate. This medication is immunosuppressive, and thus increases the risk of both mild and serious infection. We will check CBC with differential and AST, ALT, Cr, Albumin every 3-4 months for toxicity monitoring. We discussed the importance of abstaining from alcohol use while on this medication to prevent liver damage. Lastly, we discussed the importance of preventing while on this medication as it is a known teratogen. We will start back up ENbrel every week. The medication will take at least 3 months to start working. Potential side effects of this medication were discussed with the patient, which include: increased infection risk (mild and severe infections), reactivation of latent tuberculosis, reactivation of hepatitis B/C, headache, skin rash, injection site reaction, positive JARON, and exacerbation of psoriasis. There is also a theoretical, small increased risk of malignancy (lymphomas, solid tumors, and skin cancers). We will check CBC with diff and AST, ALT, Cr SED rate and CRP every 3-4 months Patient Care Teams Name Effective Dates (start - stop) Status Members No Information
--- OUTSIDE RECORDS SUMMARY | 2025-01-18 09:21 | XMS_ITS | Clinical Summary ---
Author Organization [facility] Address [address] [place] [id number] Care Team Providers Care Blow Molder Name Role Phone Case Gao MD Primary Care Provider Allergies Active Allergy Reactions Criticality Noted Date Comments Aspirin Edema 11/26/2006 Methylphenidate Other - Describe In Comment Field 12/07/2024 Not effective and caused headache at 36mg. Medications folic acid 1 mg tabletIndicatio ns:Rheumatoid arthritis(714.0 ) TAKE 1 TABLET DAILY 90 tablet 3 02/11/20 16 Active polyethylene glycol-electrol yte (GOLYTELY) 236-22.74-6.74 -5.86 gram suspensionIndic ations:Encounte r for screening colonoscopy Drink 6 liters the day before the procedure and 2 liters 6 hours prior to procedure. 8000 mL 11/06/19 25 Active venlafaxine (EFFEXOR) 75 mg tabletIndicatio ns:Depression, unspecified depression type Take 3 Tablets (225 mg) by mouth two times daily. 540 Tablet 3 11/10/19 25 Active levETIRAcetam 500 mg tabletIndicatio ns:Altered mental status, unspecified altered mental status type TAKE 2 TABLETS TWICE A DAY 360 Tablet 3 01/13/20 25 Active levETIRAcetam (KEPPRA) 500 mg tabletIndicatio ns:Altered mental status, unspecified altered mental status type TAKE 2 TABLETS TWICE A DAY 360 Tablet 10/16/19 25 025 Discontinued Active Problems Problem Noted Date Diagnosed Date Seizure (HC) Diagnosed 02/2022. 01/19/2023 Seropositive rheumatoid arthritis of multiple si yuliya 09/23/2022 AMS (altered mental status) 02/26/2022 Attention deficit hyperactiv ity disorder (ADHD), combined type 01/24/2020 Skin cancer 04/19/2017 Overview (07/13/2018): 04/14/2017 Left Lateral Cheek, SCCIS, Mohs 09/12/2017 [place] 05/23/18 RIGHT SHOULDER, BCC, ED & C done 07/13/18 05/23/18 LEFT MEDIAL CALF, BCC ED & C done 07/13/18 Vitamin D deficiency 09/19/2014 Impaired fasting glucose 09/27/2013 Family history of malignant neoplasm of gastrointestinal tract 09/21/2013 Overview (09/21/2013): Colonoscopy 09/2013 normal repeat in 5 years [...] mention of thyrotoxic crisis or storm 11/26/2006 Overview (11/26/2006): RADIOACTIVE IODINE 01/2006 Resolved Problems Problem Noted Date Diagnosed Date Resolved Date Breakthrough seizure 01/202301/19/2023 10/20/2023 Routine adult health maintenance 09/21/2013 03/31/2018 Overview (09/21/2013): Colonoscopy 09/2013 normal repeat in 10 years Rheumatoid arthritis(714.0) 07/28/2012 10/20/2023 Anemia, unspecified 07/28/2012 10/23/19 20 Possible pulmonary alveolar hemorrhage 06/24/2012 10/23/2019 Hemoptysis 06/23/2012 10/23/2019 Left shoulder pain 04/21/2009 Bulimia Nervosa in detention remission, per patient report. 10/14/2008 01/27/2021 Obesity, unspecified 11/26/2006 014 Encounters Date Type Department Care Team Description 01/18/2025 Nurse Triage [facility] [address] [place] [address] Case Gao MD Palpitations 01/17/2025 Refill [facility] [address] [place] [address] Case Gao MD Refill Request (Venlafaxine) 01/10/2025 Refill [facility] [address] [place] [address] Case Gao MD Refill Request (Levetiracetam) 12/07/2024 9:40 AM CDT Office Visit [facility] [address] [place] [address] Case Gao MD Follow Up (Medication change) 12/07/2024 Travel 11/09/2024 10:15 AM ADJUTANT GENERAL Orders Only [facility] [address] [place] [address] Lab, [place] [facility] 11/09/2024 9:40 AM ADJUTANT GENERAL Office Visit [address] [address] Case Gao MD Preoperative Exam (DOS: 11/16/2024, colonoscopy, Dr. Richards, [facility]) 11/09/2024 Travel 11/05/2024 Patient Outreach [facility] Management - Care Management Navigation/[facility] [address] [place] [address] Albert Huynh RN Population Health (RN CRC) 11/05/2024 Telephone [facility] [address] [place] [address] Teja Richards MD Screening 11/05/2024 Patient Outreach [facility] Management - Care Management Navigation/[facility] [address] [place] [address] Albert Huynh RN Population Health (RN CRC) from Last 3 Months Immunizations Immunization Administration Dates Next Due AMB Influenza, IIV4 [...] PHQ-2 Answer Date Recorded PHQ-2 TOTAL SCORE 3 12/07/2024 Financial Resource Strain Answer Date R ecorded Difficulty of Paying Living Expenses Not on file 09/05/2021 Difficulty of Paying Living Expenses Not on file 09/05/2021 Comments No Sex and Gender Information Value Date Recorded Sex Assigned at Not on file Legal Sex Female 5:51 AM ADJUTANT GENERAL Gender Identity Not on file Sexual Orientation Not on file Obstetrics History Last Filed Vital Signs Vital Sign Reading Time Taken Comments Blood Pressure 146/85 12/07/2024 9:43 AM CDT Pulse 83 12/07/2024 9:33 AM CDT Temperature 36.7 C (98.1 F) 04/13/2023 7:48 AM CDT Respiratory Rate 16 02/27/2022 11:58 AM CDT Oxygen Saturation 100% 12/07/2024 9:33 AM CDT Inhaled Oxygen Concentration - - Weight 104 kg (229 lb 3.2 oz) 12/07/2024 9:33 AM CDT Height 170.7 cm (5' 7.21) 11/09/2024 9:38 AM CS T Body Mass Index 35.68 11/09/2024 9:38 AM ADJUTANT GENERAL Plan of Treatment Upcoming Encounters Date Type Department Care Team (Late st Contact Info) Description 01/22/2025 3:00 PM CDT Orders Only [facility] [address] [place] [address] Lab, [facility] Maintenance Due Date Last Done Comments HIV for age 15-65 1976 Zoster (shingles) series for age 50+ (1 of 2) 2011 Pneumococcal series for age 50+ (2 of 2 - PPSV23) 07/04/2015 07/04/2014 Colonoscopy through age 75 09/21/201809/21, 09/21/2013, 09/21/2013 Mammogram for age 45-75 12/05/2019 12/05/19 19, 03/31/2017, 01/28/2016, Additional history exists Fecal testing non-DNA (FIT,FOBT,iFOBT) for age 45-75 11/15/2020 11/16/2019, 08/03/2011 RSV vaccine for adults or (1 - Risk 60-74 years 1-dose series) 2021 Pap test for age 21-65 12/26/2023 9, 12/25/2018, 09/19/2014, Additional history exists COVID-19 vaccine series ( season) 2024 10/24/2020, 09/26/2020 Influenza Vaccine (Season Ended) 2025 06/24/2020, 06/14/2019, 05/24/2018, Additional history exists BMI (ht and wt on same day) for age 18+ 11/09/2025 11/09/2024, 03/21/2023, 01/06/2023, Additional history exists Lipids for age 45-75 11/14/2025 11/14/2020, 10/23/2019, 11/29/2018, Additional history exists Depression screening for age 12+ 12/07/2025 12/08/19 25 Tetanus booster 06/28/2027 06/28/2017, 07/07, 09/05/1999 Hepatitis C screening for ag e 18-79 Completed 03/31/2017 Tdap Completed 06/28/2017, 08/03/2011 Procedures Procedure Name Priority Date/Time Associated Diagnosis Comments CBC WITH AUTO DIFFERENTIAL Routine 11/09/2024 10:29 AM ADJUTANT GENERAL Atrophic arthritis (HC) Encounter for therapeutic drug monitoring SEDIMENTATION RATE Routine 11/09/2024 10 :29 AM ADJUTANT GENERAL Atrophic arthritis (HC) Encounter for therapeutic drug monitoring C-REACTIVE PROTEIN Routine 11/09/2024 10 :29 AM ADJUTANT GENERAL Atrophic arthritis (HC) Encounter for therapeutic drug monitoring ALBUMIN Routine 11/09/2024 10:29 AM ADJUTANT GENERAL Atrophic arthritis (HC) Encounter for therapeutic drug monitoring ALT (SGPT) Routine 11/09/2024 10:29 AM ADJUTANT GENERAL Atrophic arthritis (HC) Encounter for therapeutic drug monitoring AST (SGOT) Routine 11/09/2024 10:29 AM ADJUTANT GENERAL Atrophic arthritis (HC) Encounter for therapeutic drug monitoring HEMOGLOBIN A1C Routine 11/09/2024 10:29 AM ADJUTANT GENERAL Impaired fasting glucose BASIC METABOLIC PANEL Routine 11/09/2024 10:29 AM ADJUTANT GENERAL Essential hypertension LIPID PANEL W REFLEX MEASURED LDL Routine 11/14/2020 7:56 AM ADJUTANT GENERAL Hyperlipidemia, unspecified hyperlipidemia type OCCULT BLOOD IFOBT STOOL Routine 11/16/2019 10:00 AM CDT Screening for colon cancer TANK WAGON DRIVER THIN PREP PAP SCREEN IMAGED Routine 12/25/2018 5:05 PM CDT Pap smear for cervical cancer screening XR MAMMO BILAT SCREENING Routine 12/04/2018 11:12 AM CDT Visit for screening mammogram ANTI HCV Routine 03/31/2017 10:07 AM CDT Encounter for hepatitis C screening test for low risk patient from Last 3 Months or Most Recently Relevant to Health Maintenance Results * SEDIMENTATION RATE (11/09/2024 10:29 AM ADJUTANT GENERAL) SED RATE BY MODIFIED CKERGREN 9 < OR = 30 mm/h [facility] Blood BLOOD SPECIMEN / Unknown 11/09/2024 10:29 AM ADJUTANT GENERAL 11/09/2024 10:36 AM ADJUTANT GENERAL us Case Gao MD HEMATOLOGY Final Result [employer] [facility] [address] [place] [address], [facility] [address] [place] [address] * HEMOGLOBIN A1C (11/09/2024 10:29 AM ADJUTANT GENERAL) HEMOGLOBIN A1C 5.0 <5.7 % of total Hgb [facility] Comment: For the purpose of screening for the presence of diabetes: <5.7% Consistent with the absence of diabetes 5.7-6.4% Consistent with increased risk for diabetes (prediabetes) > or =6.5% Consistent with diabetes This assay result is consistent with a decreased risk of diabetes. Currently, no consensus exists regarding use of hemoglobin A1c for diagnosis of diabetes in children. According to [place] Diabetes Association (ADA) guidelines, hemoglobin A1c <7.0% represents optimal control in non- diabetic patients. Different metrics may apply to specific patient populations. Standards of Medical Care in Diabetes(ADA). Blood BLOOD SPECIMEN / Unknown 11/09/2024 10:29 AM ADJUTANT GENERAL 11/09/2024 10:36 AM ADJUTANT GENERAL us Case Gao MD CHEMISTRY Final Result [facility] [address] [place] [address], [facility] [address] [place] [address] * C-REACTIVE PROTEIN (11/09/2024 10:29 AM ADJUTANT GENERAL) [facility] C-REACTIVE PROTEIN <3.0 <8.0 mg/L [facility] [employer] Blood BLOOD SPECIMEN / Unknown 11/09/2024 10:29 AM ADJUTANT GENERAL 11/09/2024 10:36 AM ADJUTANT GENERAL Case Gao MD CHEMISTRY Final Result Performing Organization Address [facility] de Phone Number [employer] [address] [address], [facility] [address] [place] [phone] * (ABNORMAL) CBC AND DIFFERENTIAL (11/09/2024 10:29 AM ADJUTANT GENERAL) [facility] WHITE BLOOD CELL COUNT 3.4(L) 3.8 - 10.8 Thousand/u L [facility] RED BLOOD CELL COUNT 4.32 3.80 - 5.10 Million/uL [facility] HEMOGLOBIN 13.4 11.7 - 15.5 g/dL [facility] HEMATOCRIT 40.8 35.0 - 45.0 % [facility] MCV 94.4 80.0 - 100.0 fL [facility] MCH 31.0 27.0 - 33.0 pg [facility] MCHC 32.8 32.0 - 36.0 g/dL [facility] Comment: For adults, a slight decrease in the calculated MCHC value (in the range of 30 to 32 g/dL) is most likely not clinically significant; however, it should be interpreted with caution in correlation with other red cell parameters and the patient's clinical condition. RDW 13.2 11.0 - 15.0 % [facility] PLATELET COUNT 247 140 - 400 Thousand/u L [facility] MPV 10.1 7.5 - 12.5 fL [facility] ABSOLUTE NEUTROPHILS 1,911 1,500 - 7,800 cells/uL [facility] ABSOLUTE LYMPHOCYTES 1,200 850 - 3,900 cells/uL [facility] ABSOLUTE MONOCYTES 269 200 - 950 cells/uL [facility] ABSOLUTE EOSINOPHILS 10(L) 15 - 500 cells/uL [facility] ABSOLUTE BASOPHILS 10 0 - 200 cells/uL [facility] NEUTROPHILS 56.2 % [facility] LYMPHOCYTES 35.3 % [facility] MONOCYTES 7.9 % [facility] EOSINOPHILS 0.3 % [facility] BASOPHILS 0.3 % [facility] Blood BLOOD SPECIMEN / Unknown 11/09/2024 10:29 AM ADJUTANT GENERAL 11/09/2024 10:36 AM ADJUTANT GENERAL us Case Gao MD HEMATOLOGY Final Result [facility] [address] [place] [address], [place] [phone] [facility] [address] [place] [phone] * ALT (SGPT) (11/09/2024 10:29 AM ADJUTANT GENERAL) ALT 17 6 - 29 U/L [facility] Blood BLOOD SPECIMEN / Unknown 11/09/2024 10:29 AM ADJUTANT GENERAL 11/09/2024 10:36 AM ADJUTANT GENERAL us Case Gao MD CHEMISTRY Final Result [facility] [address] [place] [address], [place] [phone] [facility] [address] [place] [address] * AST (SGOT) (11/09/2024 10:29 AM ADJUTANT GENERAL) [facility] AST 19 10 - 35 U/L [facility] Blood BLOOD SPECIMEN / Unknown 11/09/2024 10:29 AM ADJUTANT GENERAL 11/09/2024 10:36 AM ADJUTANT GENERAL Case Gao MD CHEMISTRY Final Result [employer] [facility] [address] [place] [address], [facility] [address] [place] [address] * ALBUMIN (11/09/2024 10:29 AM ADJUTANT GENERAL) [facility] ALBUMIN 4.4 3.6 - 5.1 g/dL [facility] Blood BLOOD SPECIMEN / Unknown 11/09/2024 10:29 AM ADJUTANT GENERAL 11/09/2024 10:36 AM ADJUTANT GENERAL Case Gao MD CHEMISTRY Final Result [employer] [facility] [address] [place] [phone], [facility] [address] [place] [address] * BASIC METABOLIC PANEL (11/09/2024 10:29 AM ADJUTANT GENERAL) [facility] GLUCOSE 85 65 - 99 mg/dL [facility]yn [facility] Comment: Fasting reference interval UREA NITROGEN (BUN) 16 7 - 25 mg/dL [facility] CREATININE 0.67 0.50 - 1.05 mg/dL [facility] EGFR 98 > OR = 60 mL/min/1. 73m2 [facility] BUN/CREATININE RATIO SEE NOTE: 6 - 22 (calc) [facility] Comment: Not Reported: BUN and Creatinine are within reference range. SODIUM 137 135 - 146 mmol/L [facility] POTASSIUM 4.7 3.5 - 5.3 mmol/L [facility] CHLORIDE 103 98 - 110 mmol/L [facility] CARBON DIOXIDE 27 20 - 32 mmol/L [facility] ELECTROLYTE BALANCE 7 7 - 17 mmol/L (calc) [facility] CALCIUM 9.1 8.6 - 10.4 mg/dL [facility] Blood BLOOD SPECIMEN / Unknown 11/09/2024 10:29 AM ADJUTANT GENERAL 11/09/2024 10:36 AM ADJUTANT GENERAL us Case Gao MD CHEMISTRY Final Result [employer] [facility] [address] [place] [address], [facility] [address] [place] [address] * LIPID PANEL W REFLEX MEASURED LDL (11/14/2020 7:56 AM ADJUTANT GENERAL) CHOLESTEROL,TOTAL 189 100 - 199 mg/dL 11/14/2020 2:34 PM ADJUTANT GENERAL [facility] TRIGLYCERIDES 60 <150 mg/dL 11/14/2020 2:34 PM ADJUTANT GENERAL [facility] HDL CHOLESTEROL 94 >40 mg/dL 2:34 PM ADJUTANT GENERAL [facility] NON-HDL CHOLESTEROL 95 <145 mg/dl 11/14/2020 2:34 PM ADJUTANT GENERAL [facility] CHOL/HDL RATIO 2.01 <4.50 11/14/2020 2:34 PM ADJUTANT GENERAL [facility] LDL CHOLESTEROL 83 <=130 mg/dL 11/14/2020 2:34 PM ADJUTANT GENERAL [facility] PROVIDER ORDERED STATUS RANDOM 11/14/2020 2:34 PM ADJUTANT GENERAL [facility] Blood BLOOD SPECIMEN / Unknown Venipuncture / Unknown 11/14/2020 7:56 AM ADJUTANT GENERAL 11/14/2020 7:56 AM ADJUTANT GENERAL us Case Gao MD CHEMISTRY Final Result [facility] [address] [place] [address], [place] * OCCULT BLOOD IFOBT STOOL (11/16/2019 10:00 AM CDT) STOOL BLOOD ,IFOBT Negative Negative 11/16/2019 1:26 PM CDT [facility] Stool STOOL SPECIMEN / Unknown Non-Blood / Unknown 11/16/2019 10:00 AM CDT 11/16/2019 1:17 PM CDT us Case Gao MD LABORATORY Final Result Performing Organization Address City/[facility]/ZIP Co de Phone Number [facility] [address] [place] [address], [place] [phone] * TANK WAGON DRIVER THIN PREP PAP SCREEN IMAGED (12/25/2018 5:05 PM CDT) Case Report Gynecologic Cytology Report Case: [id number] Authorizing Provider: Case Gao, Collected: 12/25/2018 1705 Ordering Location: [facility] Received: 12/25/2018 [facility] First Screen: Mitra Vallejo Specimen: TANK WAGON DRIVER ThinPrep Vial Screening, Cervical 01/04/2019 8:58 AM CDT [facility] ENTRAL LABORAT[facility] INTERPRETATION/ RESULT NEGATIVE FOR INTRAEPITHELIAL LESION OR MALIGNANCY (NIL) (none) 01/04/2019 8:58 AM CDT [facility] [employer] ENTRAL LABORATORY at 0858 CDT SPECIMEN ADEQUACY Satisfactory for evaluation Endocervical component present 01/04/2019 8:58 AM CDT [facility] ENTRAL LABORATORY HPV REQUEST HPV and PAP 01/04/2019 8:58 AM CDT [facility] Date of LMP unknown 01/04/2019 8:58 AM CDT [facility] Last Pap Date 09/19/14 01/04/2019 8:58 AM CDT [facility] Last Pap Result NIL 9 8:58 AM CDT [facility] Abnormal Pap or [place] Bx in last 5 years No 01/04/2019 8:58 AM CDT [facility] Menstrual Status Postmenopausal 01/04/2019 8:58 AM CDT [facility] [place] Bx Done Today No 01/04/2019 8:58 AM CDT [facility] Additional Information None given 01/04/2019 8:58 AM CDT [facility] Automated Review Successful 01/04/2019 8:58 AM CDT [facility] Comment:Specimen processed s uccessfully by automated linux unix engineer device, [employer] System, [employer] ANCILLARY TESTING TANK WAGON DRIVER HPV Ordered, Please see separate report 01/04/2019 8:58 AM CDT [facility] Note The pap test is a screening technique, not a diagnostic procedure. It is used primarily to screen for squamous cancers and precursor lesions. Published studies have shown that it is subject to both false negative and false positive results. The pap test should not be used as the sole means to diagnose or exclude pre-malignant and malignant lesions. Cytology is screened and interpreted at [facility], Central Laboratory - [address], [place] [address] and [facility] - [address]; [place] [address] and [facility] - [address]; [place] [address] and [facility] [address]; [place] [address] 01/04/2019 8:58 AM CDT [facility] Other (Cervical) Non-Blood / Unknown 12/25/2018 5:05 PM CDT 12/25/2018 5:23 PM CDT us Case Gao MD PATHOLOGY/CYTOLOGY Fin al Result [facility] [address] [place] [address], [place] * XR MAMMO BILAT SCREENING (12/04/2018 11:12 AM CDT) Anatomical Region Laterality Modality BREASTS, Breast Left, Breast Right Bilateral Mammography Impressions 12/04/2018 12:26 PM CDT There is no radiographic evidence for malignancy. Recommend annual mammograms. A lay language report of this examination will be provided to the patient. MAMMOGRAM ASSESSMENT: ACR 2 Benign Narrative 12/04/2018 12:26 PM CDT XR MAMMO BILAT SCREENING [[id number]] CLINICAL HISTORY: This is an asymptomatic 58 y.o. patient. INDICATION FOR EXAM: Mammogram Screening. TECHNIQUE: CC & MLO views were obtained. This digital study was evaluated with the assistance of Computer-Aided Detection. COMPARISON FILMS: Yes 03/31/10 [facility] 01/28/16 [facility] FINDINGS: Mammographically, the breast tissue has scattered fibroglandular densities. No suspicious masses or microcalcifications. Benign appearing calcifications within both breasts, Benign appearing mass(es) within right breast and Benign appearing asymmetry within right breast. Case Gao MD MAMMO Final Result * ANTI HCV (03/31/2017 10:07 AM CDT) HEPATITIS C ANTIBODY Non-Reacti ve Non-Reacti ve 03/31/2017 4:31 PM CDT [facility] Blood BLOOD SPECIMEN / Unknown Venipuncture / Unknown 03/31/2017 10:07 AM CDT 03/31/2017 10:07 AM CDT Narrative [facility] - 03/31/2017 4:31 PM CDT Antibodies to HCV not detected; does not exclude the possibility of exposure to HCV. Case Gao MD SEND OUTS Final Result [facility] [address] [place] [address], from Last 3 Months or Most Recently Relevant to Health Maintenance Insurance BLUE CROSS OF NON-IN-ITS BLUE CROSS OF NON-IN-ITS Advance Directives * Full Code (Latest Code Status on File) Date Activated Date Inactivated Comments 02/26/2022 3:57 AM 02/27/2022 3:25 PM Question Answer Comments Code Status Discussion: Reviewed Preferences * Full Code Date Activated Date Inactivated Comments 06/23/2012 5:55 PM 06/24/2012 4:41 PM Care Teams Blow Molder Relationship Specialty Start Date End Date Case Gao MD [address] [place] [address] PCP - General 11/28/06
--- NOTE | 2025-01-18 10:20 | ED_ITS ---
HPI - General Adult General Time Seen by Provider: 10:21 Date Seen: 01/18/25 Chief complaint: Arrhythmia/Palpitations Stated complaint: palpitations, dizziness Time Seen by Provider: 01/18/25 10:20 Source: patient, family and RN notes reviewed Mode of arrival: ambulatory Limitations: no limitations History of Present Illness HPI narrative: This 64-year-old female is coming in to the ER today with multiple complaints. She is been feeling off. She has been noting that her muscles are tensing, feel twitchy, has to focus to make them stop. She has also noticed muscle cramps at times. I did have her sit up to listen to her lungs in she got a cramp in her thigh, that is when she related to me that she has been having more muscle cramps. She feels that her heart has had palpitations but no chest pain. She has felt hot flashes. She is just not feeling right. She admits that she has been off her Effexor a few days, is on this for anxiety. It is not come in the mail yet. She has been off of it in the past at times and not had problems. She has been out of it for about 3 days or so now. She also notes that she has been feeling constipated, has not had a good bowel movement but no abdominal pain. She notes she really has not been eating much. On questioning, she does admit she drinks about 4 beers a day. She does have rheumatoid arthritis, den ies any new focal pain anywhere. She has had no falls recently. Related Data Home Medications ?Medication ?Instructions ?Recorded ?Confirmed folic acid 1 mg tablet 1 mg PO DAILY 11/14/22 01/18/25 hydroxychloroquine 200 mg tablet 400 mg PO DAILY 11/14/22 11/17/22 levetiracetam 500 mg tablet 500 mg PO BID 11/14/22 01/18/25 lisinopril 10 1 tab PO DAILY 11/14/22 01/18/25 mg-hydrochlorothiazide 12.5 mg tablet venlafaxine 75 mg tablet 225 mg PO Q12H 11/14/22 01/18/25 etanercept 50 mg/mL (1 mL) 50 mg subcut Q7D 11/15/22 01/18/25 subcutaneous pen injector (Enbrel SureDelfinoick) methotrexate sodium 2.5 mg tablet 25 mg PO Q7D 11/15/22 01/18/25 prednisone 5 mg tablet 5 mg PO DAILY PRN 11/15/22 01/18/25 methylphenidate HCl 36 mg 36 mg PO DAILY 01/18/25 01/18/25 tablet,extended release 24 hr Previous Rx's ?Medication ?Instructions ?Recorded gabapentin 100 mg capsule 100 mg PO QHS #7 caps 11/23/23 amoxicillin 875 mg-potassium 1 tab PO Q12H #14 tabs 12/07/23 clavulanate 125 mg tablet clobetasol 0.05 % topical cream 1 applic topical QDAY #15 grams 02/01/24 Allergies Allergy/AdvReac Type Severity Reaction Status Date / Time aspirin Allergy Anaphylaxis Verified 01/18/25 09:43 Review of Systems Status of ROS: Reports: 6 or more systems reviewed and unremarkable except as noted in History and below [facility] Medical History Seizure ?R56.9 - Unspecified convulsions (ICD-10) Thyroid nodule ?E04.1 - Nontoxic single thyroid nodule (ICD-10) Anxiety ?F41.9 - Anxiety disorder, unspecified (ICD-10) Essential hypertension ?I10 - Essential (primary) hypertension (ICD-10) Rheumatoid arthritis ?M06.9 - Rheumatoid arthritis, unspecified (ICD-10) Abscess, intratonsillar ?J36 - Peritonsillar abscess (ICD-10) Surgical History History of total knee arthroplasty ?Z96.659 - Presence of unspecified artificial knee joint (ICD-10) S/P ORIF (open reduction internal fixation) fracture ?Z98.890 - Other specified postprocedural states (ICD-10) ?Z87.81 - Personal history of (healed) traumatic fracture (ICD-10) History of section ?Z98.891 - History of uterine scar from previous surgery (ICD-10) H/O tubal ligation ?Z98.51 - Tubal ligation status (ICD-10) History of carpal tunnel release ?Z98.890 - Other specified postprocedural states (ICD-10) Social History Narrative: Lives with locally, 3 adult children. 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 Nonsmoker, beer 3-4 nights a week. No history of ETOH withdrawal. Highest level of school completed/degree received: Bachelor's degree Smoking Status: Never smoker How often do you have a drink containing alcohol: 4 or more times a week Alcohol type: beer How many standard drinks containing alcohol do you have on a typical day: 1 or 2 How often do you have six or more drinks on one occasion: Daily or almost daily AUDIT-C Alcohol total score: 8 Non-prescribed substance use: denies use Caffeine: No service: No Exam Const: Vital Signs, click to edit/add: Vital Signs - 24 hr 01/18/25 09:38 01/18/25 09:39 01/18/25 09:45 Temperature 97.6 F Pulse Rate 91 85 Pulse Rate [Pulse Oximeter] 90 Respiratory Rate 18 Blood Pressure Blood Pressure [Ri ght Upper Arm] 142/92 H Pulse Oximetry 95 99 94 Oxygen Delivery Me thod Room Air 01/18/25 10:00 01/18/25 10:15 01/18/25 10:30 Temperature Pulse Rate 125 H 81 92 Pulse Rate [Pulse Oximeter] Respiratory Rate 13 Blood Pressure Blood Pressure [Ri ght Upper Arm] Pulse Oximetry 95 94 96 Oxygen Delivery Me thod 01/18/25 10:45 01/18/25 11:08 01/18/25 11:10 Temperature Pulse Rate 91 93 93 Pulse Rate [Pulse Oximeter] Respiratory Rate 15 21 Blood Pressure 134/76 Blood Pressure [Ri ght Upper Arm] Pulse Oximetry 93 99 99 Oxygen Delivery Me thod 01/18/25 11:15 01/18/25 11:30 01/18/25 11:45 Temperature Pulse Rate 90 92 90 Pulse Rate [Pulse Oximeter] Respiratory Rate 20 11 L Blood Pressure Blood Pressure [Ri ght Upper Arm] Pulse Oximetry 97 100 97 Oxygen Delivery Me thod This 64-year-old female is alert, interactive, no apparent distress but definitely seems anxious, seemingly hyperventilating initially but did settle down while I was in the room with her. She demonstrates movement but when talking to her, she can not sit still. She did get the cramp in the left thigh when I had her sit up, this was alleviated by lying back down. Lungs are clear, good air entry, no wheezing or crackles, no tachypnea. CV regular rate and rhythm, no murmur, normal S1-S2, no S3-S4. Abdomen is obese but soft, no rebound or guarding, no organomegaly, nontender, nondistended. She has no calf tenderness, no significant edema. Moving all extremities, following commands. I note no baseline tremors. Documenting provider has reviewed patient's vital signs: yes Course Course ED Course: This patient does endorse alcohol use EM on and is complaining of muscular issues, constipation. Do think we need to check electrolytes including magnesium. She does not seem to be in withdrawal from alcohol but Effexor withdrawal certainly could be possibility. Will check full complement of labs. Will obtain EKG, have her on cardiac monitoring and pulse oximetry here. Will consider arrhythmia, cardiac etiologies such as arrhythmia. She is not having any chest pains or doubt ischemic disease or myocarditis or pericarditis. We should more effectively evaluate this further with her EKG and troponin which will be ordered. Do feel that there is likely a component of anxiety overly in this as well. Reevaluation(s) Time of Reevaluation #1: 11:38 Reevaluation #1: Have reviewed with patient her labs are reassuring minus a pending thyroid. I will let her know if there is any abnormality on the thyroid test once back. She does not know her medication dosing for her Effexor. Her chart shows 225 mg twice a day of the regular venlafaxine. Did look this up in her [facility] chart. There was a refill request on the . We will give her a dose here now today, hopefully her mail order will be in. Vital Signs Vital signs: Initial Vital Signs Pulse Rate 91 01/18/25 09:38 Pulse Oximetry 95 01/18/25 09:38 Vital Signs Pulse Rate 91 01/18/25 09:38 Pulse Oximetry 95 01/18/25 09:38 Temperature 97.6 F 01/18/25 09:39 Pulse Rate 90 01/18/25 11:45 Respiratory Rate 11 L 01/18/25 11:45 Blood Pressure 134/76 01/18/25 11:10 Pulse Oximetry 97 01/18/25 11:45 Oxygen Delivery Method Room Air 01/18/25 09:39 Medications Administered Medications: Discontinued Medications Generic Name Dose Route Start Last Admin Trade Name Nazia PRN Reason Stop Dose Admin Venlafaxine HCl 225 mg 01/18/25 12:00 01/18/25 11:53 Venlafaxine Hcl 37.5 Mg Tablet PO 01/18/25 12:01 225 mg ONCE ONE Administration Medical Decision Making Lab Data Lab results reviewed: Yes I reviewed the patient's lab results Labs: Lab Results 01/18/25 01/18/25 Range/Units 10:40 11:05 WBC 5.73 (4.50-11.00) K/uL RBC 4.48 (4.00-5.20) m/uL Hgb 13.9 (12.0-16.0) gm/dL Hct 41.6 (33.0-51.0) % MCV 93 (80-100) fL MCH 31 (26-34) pg MCHC 33 (32-36) gm/dL RDW Coeff of Colleen 13.7 (11.5-15.5) % Plt Count 264 (140-440) K/uL Neut % (Auto) 72.4 H (42.0-72.0) % Lymph % (Auto) 20.1 (20-44) % [place]ham % (Auto) 7.0 (0.0-11.0) % Eos % (Auto) 0.5 (0.0-7.0) % Baso % (Auto) 0.0 (0.0-3.0) % Neut # (Auto) 4.10 (1.7-7.0) K/uL Lymph # (Auto) 1.15 (0.90-2.90) K/uL Windham # (Auto) 0.40 (0.00-0.90) K/UL Eos # (Auto) 0.03 (0.00-0.50) K/uL Baso # (Auto) 0.00 (0.00-0.30) K/uL Abs Immat Gran (auto) 0.00 (0.00-0.30) K/uL Imm/Tot Granulo (auto) 0.0 % VBG pH 7.440 H (7.32-7.43) VBG pCO2 36 L (40-50) mmHG VBG pO2 40.0 (25-47) mmHG VBG HCO3 24 (21-28) mmol/L Sodium 138 (135-149) mmol/L Potassium 4.0 (3.6-5.1) mmol/L Chloride 105 (96-114) mmol/L Carbon Dioxide 24 (20-32) mmol/L Anion Gap 9 (7-15) mEq/L BUN 12 (7-30) mg/dL Creatinine 0.6 (0.5-1.5) mg/dL Estimated Creat Clear 56.00 Estimated GFR 101 ml/min Glucose 120 H (60-115) mg/dL Lactate 1.0 (0.5-1.9) mmol/L Calcium 9.8 (8.4-10.6) mg/dL Magnesium 1.7 (1.5-2.6) mg/dL Total Bilirubin 1.1 (0.1-1.5) mg/dL Direct Bilirubin 0.3 (0.0-0.5) mg/dL AST 34 (12-35) U/L ALT 29 (4-35) U/L Alkaline Phosphatase 75 (40-150) U/L Total Creatine Kinase 96 (41-117) U/L Troponin I < 0.01 (0.01-0.04) ng/mL C-Reactive Protein 0.8 (0.5-1.0) mg/dL NT-Pro-B Natriuret Pep 73 pg/mL Total Protein 7.6 (6.0-8.3) g/dL Albumin 4.6 (3.3-5.0) g/dL Lipase 80 (23-300) U/L TSH 1.320 (0.270-4.200) uIU/mL Urine Opiates Screen Negative (Negative) Ur Oxycodone Screen Negative (Negative) Urine Methadone Screen Negative (Negative) Ur Barbiturates Screen Negative (Negative) U Tricyclic Antidepress Negative (Negative) Ur Phencyclidine Scrn Negative (Negative) Ur Amphetamines Screen Negative (Negative) U Methamphetamines Scrn Negative (Negative) U Benzodiazepines Scrn Negative (Negative) Urine Cocaine Screen Negative (Negative) U Marijuana (THC) Screen Negative (Negative) Ur Drug Screen Comment See Note Ethyl Alcohol < 0.01 (0.01-0.03) % Imaging Data Abdominal x-ray: Attestation: I have reviewed the pertinent imaging results. Radiologist's impression: Patient: YUSRA AVALOS Facility:?[facility] RIS Patient ID:?[id number] Site Patient ID:?[id number]. Site :?[id number] Study:?XRay-Abdomen/Pelvis FLAT AND UPRIGHT-01/18/2025 11:12:37 AM Ordering Physician:Mandy Vick Final Report: INDICATION: C/O CONSTIPATION. (Sic) COMPARISON: None available. TECHNIQUE: AP upright and supine views of the abdomen and pelvis. (4 images) FINDINGS: Nondilated bowel. No significant colonic fecal loading. No significant incidental calcifications. The visualized skeleton demonstrates no significant incidental/acute findings. Left hip arthroplasty. Associated periarticular heterotopic ossification. IMPRESSION: No significant colonic fecal loading. Nondilated bowel. Dictated by Tim Mar MD @ 01/18/2025 11:26:55 AM (Electronic Signature) ECG Data Attestation: I personally reviewed and interpreted this ECG as follows: (Normal sinus rhythm, 93 beats per minute. Poor R-wave progression anterior precordial leads, isolated flipped T-waves lead V2 without any ST segment change.) Prior ECG tracings: not available for review Discharge Plan Discharge Clinical Impression: Anxiety, Abnormal localized muscle contraction Patient Disposition: Home, Self-Care Condition: Stable Instructions: Anxiety (ED) Additional Instructions: I do think that your symptoms are related to withdrawal of the Effexor. Need to get your prescription and take as prescribed. Contact the clinic and get a local prescription for a few doses of the medicine if needed. Please schedule follow-up in clinic for recheck. If you have further concerns issues, feel you are worsening, you certainly can seek re-evaluation in the ER. I will contact you if the thyroid test does come back abnormal. Activity Level: Activity as Tolerated Prescriptions: No Action folic acid 1 mg tablet 1 mg PO DAILY levetiracetam 500 mg tablet 500 mg PO BID hydroxychloroquine 200 mg tablet 400 mg PO DAILY venlafaxine 75 mg tablet 225 mg PO Q12H lisinopril-hydrochlorothiazide 10-12.5 mg tablet 1 tab PO DAILY Enbrel SureClick 50 mg/mL (1 mL) pen injector 50 mg subcut Q7D Rx Instructions: WEEKLY methotrexate sodium 2.5 mg tablet 25 mg PO Q7D Rx Instructions: WEEKLY prednisone 5 mg tablet 5 mg PO DAILY PRN Rx Instructions: PRN RA FLARES methylphenidate HCl 36 mg tablet extended release 24hr 36 mg PO DAILY gabapentin 100 mg capsule 100 mg PO QHS Qty: 7 0RF amoxicillin-pot clavulanate 875-125 mg tablet 1 tab PO Q12H Qty: 14 0RF clobetasol 0.05 % cream 1 applic topical QDAY Qty: 15 0RF Rx Instructions: Apply to itching on right lower leg daily or every other day with dressing change. Follow Up/Referrals: Case Gao MD [Primary Care Provider] - Stand Alone Forms: [facility] Info Instructions
--- NOTE | 2025-01-18 10:30 | CRLHL7_ITS ---
For Patients: As a result of the Century Cures Act, medical imaging exams and procedure reports are released immediately into your electronic medical record. You may view this report before your referring provider. If you have questions, please contact your health care provider. INDICATION: C/O CONSTIPATION. (Sic) COMPARISON: None available. TECHNIQUE: AP upright and supine views of the abdomen and pelvis. (4 images) FINDINGS: Nondilated bowel. No significant colonic fecal loading. No significant incidental calcifications. The visualized skeleton demonstrates no significant incidental/acute findings. Left hip arthroplasty. Associated periarticular heterotopic ossification. IMPRESSION: No significant colonic fecal loading. Nondilated bowel. Dictated by Tim Mar MD @ 01/18/2025 11:26:55 AM (Electronically Signed)
[2025-01-18 10:48] LABS: HCO3 VBG 24 mmol/L (21-28); PCO2 VBG 36 mmHG (40-50)
[2025-01-18 10:50] LABS: Eosinophils Absolute Auto 0.03 K/uL (0.00-0.50); Eosinophils Percent Auto 0.5 % (0.0-7.0); Hematocrit 41.6 % (33.0-51.0); Hemoglobin* 13.9 gm/dL (12.0-16.0); Lymphocytes Absolute Auto 1.15 K/uL (0.90-2.90); Lymphocytes Percent Auto 20.1 % (20-44); Mean Corpuscular HGB Conc 33 gm/dL (32-36); Mean Corpuscular Hemoglobin 31 pg (26-34); Mean Corpuscular Volume 93 fL (80-100); Neutrophils Percent Auto 72.4 % (42.0-72.0); Platelet Count* 264 K/uL (140-440); RDW Coefficient of Variation % 13.7 % (11.5-15.5); Red Blood Count 4.48 m/uL (4.00-5.20); White Blood Count* 5.73 K/uL (4.50-11.00)
[2025-01-18 11:05] LABS: Chloride* 105 mmol/L (96-114)
[2025-01-18 11:06] LABS: Albumin* 4.6 g/dL (3.3-5.0); Slide Review Reflex No; Sodium* 138 mmol/L (135-149)
[2025-01-18 11:08] LABS: Blood Urea Nitrogen* 12 mg/dL (7-30); Creatinine* 0.6 mg/dL (0.5-1.5); Estimated Glomerular Filt Rate 101 ml/min
[2025-01-18 11:09] LABS: Alanine Aminotransferase* 29 U/L (4-35); Alkaline Phosphatase* 75 U/L (40-150); Anion Gap 9 mEq/L (7-15); Aspartate Amino Transferase* 34 U/L (12-35); Bilirubin Direct* 0.3 mg/dL (0.0-0.5); Bilirubin Total* 1.1 mg/dL (0.1-1.5); Calcium* 9.8 mg/dL (8.4-10.6); Carbon Dioxide* 24 mmol/L (20-32); Creatine Kinase* 96 U/L (41-117); Glucose* 120 mg/dL (60-115); Lipase* 80 U/L (23-300); Total Protein* 7.6 g/dL (6.0-8.3)
[2025-01-18 11:10] LABS: Magnesium* 1.7 mg/dL (1.5-2.6)
[2025-01-18 11:12] LABS: C Reactive Protein* 0.8 mg/dL (0.5-1.0)
[2025-01-18 11:22] LABS: Cannabinoid Screen Urine Negative (Negative)
[2025-01-18 11:23] LABS: Amphetamine Screen Urine Negative (Negative); Barbiturate Screen Urine Negative (Negative); Benzodiazepines Screen Urine Negative (Negative); Cocaine Screen Urine Negative (Negative); Methadone Screen Urine Negative (Negative); Methamphetamines Screen Urine Negative (Negative); Opiate Screen Urine Negative (Negative); Oxycodone Screen Urine Negative (Negative); Phencyclidine Screen Urine Negative (Negative); Tricyclic Antidepressant Urine Negative (Negative)
[2025-01-18 11:26] LABS: Ethanol* < 0.01 % (0.01-0.03); NT Pro B Type NatriureticPept* 73 pg/mL; Troponin I* < 0.01 ng/mL (0.01-0.04)
[2025-01-18] MEDS: VENLAFAXINE HCL 37.5 MG TABLET 225 MG PO (11:53)
--- OUTSIDE RECORDS SUMMARY | 2025-01-20 16:16 | XMS_ITS | Clinical Summary ---
Author Organization [facility] Address [address] [address] Phone Care Team Providers Care Inspector Subassemblies Name Role Phone Unavailable Primary Care Provider [...] Insurance [facility] Commercial [place] [address] [facility] Commercial Address: [facility] [address] [place] [address]
--- OUTSIDE RECORDS SUMMARY | 2025-01-20 16:16 | XMS_ITS | Clinical Summary ---
Author Organization [employer] [facility] Address [address] [place] [address] Care Team Providers Care Lime Supervisor Name Role Phone Case Gao MD Primary [...] to procedure. 8000 mL 11/06/19 25 Active levETIRAcetam 500 mg tabletIndicatio ns:Altered mental status, unspecified altered mental status type TAKE 2 TABLETS TWICE A DAY 360 Tablet 3 01/13/20 25 Active venlafaxine 75 mg tabletIndicatio ns:Depression, unspecified depression type TAKE 3 TABLETS BY MOUTH TWICE A DAY 180 Tablet 01/19/20 25 Active levETIRAcetam (KEPPRA) 500 mg tabletIndicatio ns:Altered mental status, unspecified altered mental status type TAKE 2 TABLETS TWICE A DAY 360 Tablet 10/16/19 25 025 Discontinued venlafaxine (EFFEXOR) 75 mg tabletIndicatio ns:Depression, unspecified depression type Take 3 Tablets (225 mg) by mouth two times daily. 540 Tablet 3 11/10/19 25 025 Discontinued Active Problems Problem Noted [...] shoulder pain 04/21/2009 Bulimia Nervosa in terminal gauger remission, per patient report. 10/14/2008 01/27/2021 Obesity, unspecified 11/26/2006 014 Encounters Date Type Department Care Team Description 01/18/[address] [address] Case Gao MD Medication Management 01/18/[address] [address] Case Gao MD Refill Request (venlafaxine (EFFEXOR)) 01/18/2025 Nurse Triage [address] [address] Case Gao MD Palpitations 01/17/[address] [address] Case Gao MD Refill Request (Venlafaxine) 01/10/[address] [address] Case Gao MD Refill Request (Levetiracetam) 12/07/2024 9:40 AM CDT Office Visit [address] [address] Case Gao MD Follow Up (Medication change) 12/07/2024 Travel 11/09/2024 10:15 AM BUSINESS DEVELOPMENT MANAGER Orders Only [address] [address] [facility] 11/09/2024 9:40 AM BUSINESS DEVELOPMENT MANAGER Office Visit [address] [address] Case Gao MD Preoperative Exam (DOS: 11/16/2024, colonoscopy, Dr. Richards, [facility]) 11/09/2024 Travel 11/05/2024 Patient Outreach [facility] Management - Care Management Navigation/[facility] [address] [place] [address] Albert Huynh RN Population Health (RN CRC) 11/05/2024 Telephone [facility] [address], [place] [phone] Teja Richards MD Screening 11/05/2024 Patient Outreach [facility] Management - Care Management Navigation/[facility] [address] [place] [address] Albert Huynh RN Population Health (RN CRC) [...] on file Legal Sex Female 5:51 AM BUSINESS DEVELOPMENT MANAGER Gender Identity Not on file Sexual Orientation [...] Body Mass Index 35.68 11/09/2024 9:38 AM BUSINESS DEVELOPMENT MANAGER Plan of Treatment Upcoming Encounters Date Type Department Care Team (Late st Contact Info) Description 01/22/2025 3:00 PM CDT Orders Only [facility] [address] [place] [address] [facility] Maintenance Due Date Last [...] Depression screening for age 12+ 12/07/2025 12/08/19 Tetanus booster 06/28/2027 06/28/2017, 07/07, 09/05/1999 Hepatitis C screening for ag e 18-79 Completed 03/31/2017 Tdap Completed 06/28/2017, 08/03/2011 Procedures Procedure Name Priority Date/Time Associated Diagnosis Comments CBC WITH AUTO DIFFERENTIAL Routine 11/09/2024 10:29 AM BUSINESS DEVELOPMENT MANAGER Atrophic arthritis (HC) Encounter for therapeutic drug monitoring SEDIMENTATION RATE Routine 11/09/2024 10 :29 AM BUSINESS DEVELOPMENT MANAGER Atrophic arthritis (HC) Encounter for therapeutic drug monitoring C-REACTIVE PROTEIN Routine 11/09/2024 10 :29 AM BUSINESS DEVELOPMENT MANAGER Atrophic arthritis (HC) Encounter for therapeutic drug monitoring ALBUMIN Routine 11/09/2024 10:29 AM BUSINESS DEVELOPMENT MANAGER Atrophic arthritis (HC) Encounter for therapeutic drug monitoring ALT (SGPT) Routine 11/09/2024 10:29 AM BUSINESS DEVELOPMENT MANAGER Atrophic arthritis (HC) Encounter for therapeutic drug monitoring AST (SGOT) Routine 11/09/2024 10:29 AM BUSINESS DEVELOPMENT MANAGER Atrophic arthritis (HC) Encounter for therapeutic drug monitoring HEMOGLOBIN A1C Routine 11/09/2024 10:29 AM BUSINESS DEVELOPMENT MANAGER Impaired fasting glucose BASIC METABOLIC PANEL Routine 11/09/2024 10:29 AM BUSINESS DEVELOPMENT MANAGER Essential hypertension LIPID PANEL W REFLEX MEASURED LDL Routine 11/14/2020 7:56 AM BUSINESS DEVELOPMENT MANAGER Hyperlipidemia, unspecified hyperlipidemia type OCCULT BLOOD IFOBT STOOL Routine 11/16/2019 10:00 AM CDT Screening for colon cancer HELP DESK CONSULTANT THIN PREP PAP SCREEN IMAGED Routine 12/25/2018 [...] Results * SEDIMENTATION RATE (11/09/2024 10:29 AM BUSINESS DEVELOPMENT MANAGER) SED RATE BY CARLA MARY 9 < OR = 30 mm/h [facility] Blood BLOOD SPECIMEN / Unknown 11/09/2024 10:29 AM BUSINESS DEVELOPMENT MANAGER 11/09/2024 10:36 AM BUSINESS DEVELOPMENT MANAGER Case Gao MD HEMATOLOGY Final Result [facility] [address] [place] [address], [facility] [address] [place] [address] * HEMOGLOBIN A1C (11/09/2024 10:29 AM BUSINESS DEVELOPMENT MANAGER) HEMOGLOBIN A1C 5.0 <5.7 % of total Hgb [facility] Comment: For the purpose of screening for the presence of diabetes: <5.7% Consistent with the absence of diabetes 5.7-6.4% Consistent with increased risk for diabetes (prediabetes) > or =6.5% Consistent with diabetes This assay result is consistent with a decreased risk of diabetes. Currently, no consensus exists regarding use of hemoglobin A1c for diagnosis of diabetes in children. According to [place] Diabetes Association (ADA) guidelines, hemoglobin A1c <7.0% represents optimal control in non- diabetic patients. Different metrics may apply to specific patient populations. Standards of Medical Care in Diabetes(ADA). Blood BLOOD SPECIMEN / Unknown 11/09/2024 10:29 AM BUSINESS DEVELOPMENT MANAGER 11/09/2024 10:36 AM BUSINESS DEVELOPMENT MANAGER aCse Gao MD CHEMISTRY Final Result Performing Organization Address [facility]/ZIP Co de Phone Number [facility] [address] [address], [facility] [address] [place] [address] * C-REACTIVE PROTEIN (11/09/2024 10:29 AM BUSINESS DEVELOPMENT MANAGER) Pathologist [facility] C-REACTIVE PROTEIN <3.0 <8.0 mg/L [facility] Blood BLOOD SPECIMEN / Unknown 11/09/2024 10:29 AM BUSINESS DEVELOPMENT MANAGER 11/09/2024 10:36 AM BUSINESS DEVELOPMENT MANAGER Case Gao MD CHEMISTRY Final Result Performing Organization Address [facility]/ZIP Co de Phone Number [facility] [address] [address], [facility] [address] [place] [address] * (ABNORMAL) CBC AND DIFFERENTIAL (11/09/2024 10:29 AM BUSINESS DEVELOPMENT MANAGER) WHITE BLOOD CELL COUNT 3.4(L) 3.8 - [...] BLOOD SPECIMEN / Unknown 11/09/2024 10:29 AM BUSINESS DEVELOPMENT MANAGER 11/09/2024 10:36 AM BUSINESS DEVELOPMENT MANAGER us Case Gao MD HEMATOLOGY Final Result [facility] [address] [place] [address], [place] [phone] [facility] [address] [place] [address] * ALT (SGPT) (11/09/2024 10:29 AM BUSINESS DEVELOPMENT MANAGER) ALT 17 6 - 29 U/L [facility] Blood BLOOD SPECIMEN / Unknown 11/09/2024 10:29 AM BUSINESS DEVELOPMENT MANAGER 11/09/2024 10:36 AM BUSINESS DEVELOPMENT MANAGER us Case Gao MD CHEMISTRY Final Result [facility] [address] [place] [address], [place] [phone] [facility] [address] [facility] [place] [address] * AST (SGOT) (11/09/2024 10:29 AM BUSINESS DEVELOPMENT MANAGER) AST 19 10 - 35 U/L [facility] Blood BLOOD SPECIMEN / Unknown 11/09/2024 10:29 AM BUSINESS DEVELOPMENT MANAGER 11/09/2024 10:36 AM BUSINESS DEVELOPMENT MANAGER us Case Gao MD CHEMISTRY Final Result Performing Organization Address [facility]/ZIP Co de Phone Number [facility] [address] [place] [address], [place] [phone] [facility] [address] [facility] [place] [address] * ALBUMIN (11/09/2024 10:29 AM BUSINESS DEVELOPMENT MANAGER) ALBUMIN 4.4 3.6 - 5.1 g/dL [facility] Blood BLOOD SPECIMEN / Unknown 11/09/2024 10:29 AM BUSINESS DEVELOPMENT MANAGER 11/09/2024 10:36 AM BUSINESS DEVELOPMENT MANAGER us Case Gao MD CHEMISTRY Final Result [facility] [address] [place] [address], [place] [phone] [facility] [address] [place] [address] * BASIC METABOLIC PANEL (11/09/2024 10:29 AM BUSINESS DEVELOPMENT MANAGER) GLUCOSE 85 65 - 99 mg/dL [facility] Comment: Fasting reference interval UREA NITROGEN (BUN) 16 7 - 25 mg/dL [facility] CREATININE 0.67 0.50 - 1.05 mg/dL [facility] EGFR 98 > OR = 60 mL/min/1. 73m2 [facility] BUN/CREATININE RATIO SEE NOTE: 6 [...] BLOOD SPECIMEN / Unknown 11/09/2024 10:29 AM BUSINESS DEVELOPMENT MANAGER 11/09/2024 10:36 AM BUSINESS DEVELOPMENT MANAGER Case Gao MD CHEMISTRY Final Result [facility] [address] [place] [address], [email or web address] [address] [place] [address] * LIPID PANEL W REFLEX MEASURED LDL (11/14/2020 7:56 AM BUSINESS DEVELOPMENT MANAGER) Pathologist [facility] CHOLESTEROL,TOTAL 189 100 - 199 mg/dL 11/14/2020 2:34 PM BUSINESS DEVELOPMENT MANAGER [facility] TRIGLYCERIDES 60 <150 mg/dL 11/14/2020 2:34 PM BUSINESS DEVELOPMENT MANAGER [facility] HDL CHOLESTEROL 94 >40 mg/dL 2:34 PM BUSINESS DEVELOPMENT MANAGER [facility] NON-HDL CHOLESTEROL 95 <145 mg/dl 11/14/2020 2:34 PM [facility] CHOL/HDL RATIO 2.01 <4.50 11/14/2020 2:34 PM [facility] LDL CHOLESTEROL 83 <=130 mg/dL 11/14/2020 2:34 PM BUSINESS DEVELOPMENT MANAGER [facility] PROVIDER ORDERED STATUS RANDOM 11/14/2020 2:34 PM [facility] Blood BLOOD SPECIMEN / Unknown Venipuncture / Unknown 11/14/2020 7:56 AM BUSINESS DEVELOPMENT MANAGER 11/14/2020 7:56 AM BUSINESS DEVELOPMENT MANAGER us Case Gao MD CHEMISTRY Final Result [facility] [address] [place] [address], * OCCULT BLOOD IFOBT STOOL (11/16/2019 10:00 AM CDT) STOOL BLOOD ,IFOBT Negative Negative 11/16/2019 1:26 PM CDT [facility] Stool STOOL SPECIMEN / Unknown Non-Blood / Unknown 11/16/2019 10:00 AM CDT 11/16/2019 1:17 PM CDT us Case Gao MD LABORATORY Final Result [facility] [address] [place] [address], * HELP DESK CONSULTANT THIN PREP PAP SCREEN IMAGED (12/25/2018 5:05 PM CDT) Case Report Gynecologic Cytology Report Case: [id number] Authorizing Provider: Case Gao, Collected: 12/25/2018 1705 Ordering Location: [facility] Received: 12/25/2018 1723 Clinic First Screen: Mitra Vallejo Specimen: HELP DESK CONSULTANT ThinPrep Vial Screening, Cervical 01/04/2019 8:58 AM CDT [facility] INTERPRETATION/ RESULT NEGATIVE FOR INTRAEPITHELIAL LESION OR MALIGNANCY (NIL) (none) 01/04/2019 8:58 AM CDT [facility] at 0858 CDT SPECIMEN ADEQUACY Satisfactory for evaluation Endocervical component present 01/04/2019 8:58 AM CDT [facility] HPV REQUEST HPV and PAP 01/04/2019 8:58 AM CDT [facility] Date of LMP unknown 01/04/2019 8:58 AM CDT [facility] Last Pap Date 09/19/14 01/04/2019 8:58 AM CDT [facility] Last Pap Result NIL 9 8:58 AM CDT [facility] Abnormal Pap or [place] Bx in last 5 years No 01/04/2019 8:58 AM CDT [facility] Menstrual Status Postmenopausal 01/04/2019 8:58 AM CDT [facility] [place] Bx Done Today No 01/04/2019 8:58 AM CDT [facility] Additional Information None given 01/04/2019 8:58 AM CDT [facility] Automated Review Successful 01/04/2019 8:58 AM CDT [facility] Comment:Specimen processed s uccessfully by automated meter reader chief device, ThinPrep Imaging System, [employer] ANCILLARY TESTING HELP DESK CONSULTANT HPV Ordered, Please see separate report 01/04/2019 8:58 AM CDT [facility] Note The pap test is [...] lesions. Cytology is screened and interpreted at [facility] - [address], [place] [address] and [facility] - [address] [place] [address]; [place] [address] and [facility] - [address]; [place] [address] and [facility] [address]; [place] [address] 01/04/2019 8:58 AM CDT [facility] ENTRAL LABORATORY Other (Cervical) Non-Blood / Unknown 12/25/2018 5:05 PM CDT 12/25/2018 5:23 PM CDT us Case Gao MD PATHOLOGY/CYTOLOGY Fin al Result [facility] [address] [place] [address], [place] * XR MAMMO BILAT SCREENING (12/04/2018 11:12 AM CDT) Anatomical Region Laterality Modality BREASTS, Breast Left, Breast Right Bilateral Mammography Impressions 12/04/2018 12:26 PM CDT There is no radiographic evidence for malignancy. Recommend annual mammograms. A lay language report of this examination will be provided to the patient. MAMMOGRAM ASSESSMENT: ACR 2 Benign Narrative 12/04/2018 12:26 PM CDT XR MAMMO BILAT SCREENING [[id number]] CLINICAL HISTORY: This is an asymptomatic 58 y.o. patient. INDICATION FOR EXAM: Mammogram Screening. TECHNIQUE: CC & MLO views were obtained. This digital study was evaluated with the assistance of Computer-Aided Detection. COMPARISON FILMS: Yes 03/31/10 [facility] 01/28/16 [facility] FINDINGS: Mammographically, the breast tissue has scattered fibroglandular densities. No suspicious masses or microcalcifications. Benign appearing calcifications within both breasts, Benign appearing mass(es) within right breast and Benign appearing asymmetry within right breast. us Case Gao MD MAMMO Final Result * ANTI HCV (03/31/2017 10:07 AM CDT) HEPATITIS C ANTIBODY Non-Reacti ve Non-Reacti ve 03/31/2017 4:31 PM CDT [facility] Blood BLOOD SPECIMEN / Unknown Venipuncture / Unknown 03/31/2017 10:07 AM CDT 03/31/2017 10:07 AM CDT Narrative [facility] - 03/31/2017 4:31 PM CDT Antibodies to HCV not detected; does not exclude the possibility of exposure to HCV. Case Gao MD SEND OUTS Final Result [facility] [address] [place] [address], from Last 3 Months or Most Recently Relevant to Health Maintenance Insurance [employer] Member Subscriber Plan / Payer (Ef fective 2024-Present) Name:Mora Galeas Member ID:[id number] Relation to Subscriber:Spouse Name:Dell Galeas Subscriber ID:[id number] Date of :1959 (Home) (Work) Address: [address] [place] [address] Payer ID:[id number] (NAIC) Type:Not on file Address: [place] [id number] [place] [phone] [employer] [place] [address] Advance Directives * Full Code (Latest Code Status on File) Date Activated Date Inactivated Comments 02/26/2022 3:57 AM 02/27/2022 3:25 PM Question Answer Comments Code Status Discussion: Reviewed Preferences * Full Code Date Activated Date Inactivated Comments 06/23/2012 5:55 PM 06/24/2012 4:41 PM Care Teams Lime Supervisor Relationship Specialty Start Date End Date Case Gao MD [address] [place] [address] PCP - General 11/28/06
--- OUTSIDE RECORDS SUMMARY | 2025-01-20 16:16 | XMS_ITS | Continuity of Care Document ---
Author Organization [facility] Address [address] [place] [address] Phone Care Team Providers Care Electrical Manufacturing Engineer Name Role Phone Poolrama Pearl BELLO [facility] , [address], [place], [address], [place] tel:[phone] [facility] , Rheumatoid arthritis with rheumatoid factor 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 systems involvementO ther rn long term care (current) drug therapy Dec-0 5 Philippe Smith. [address], [place], [address], [place]. tel:[phone] Referring Provider: Sarah Epperson, [address], [place], [address]. tel:[phone] [facility] , [address], [place], [address], [place] tel:[phone] [facility] , No Information 5 Philippe Smith. [address], [place], [address], [place]. tel:[phone] [facility] , [address], [place], [address], [place] tel:[phone] [facility] No Information 5 Philippe Smith. [address], [place], [address], [place]. tel:[phone] Office/Outpa tient Visit, Est [facility] , [address], [place], [address], [place] tel:[phone] Telehealth Rheumatoid arthritis with rheumatoid factor 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 systems involvementO ther rn long term care (current) drug therapy 4 Philippe Smith. [address], [place], [address], [place]. tel:[phone] Referring Provider: Sarah Epperson, [address], [place], [address]. tel:[phone] Office/Outpa tient Visit, Est [facility] , [address], [place], [address], [place] tel:[phone] [facility] , Rheumatoid arthritis with rheumatoid factor 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 systems involvementO ther fdc (current) drug therapy 4 Philippe Smith. [address], [place], [address], [place]. tel:[phone] Referring Provider: Sarah Epperson, [address], [place], [address]. tel:[phone] Office/Outpa tient Visit, Est [facility] , [address], [place], [address], [place] tel:[phone] [facility] , Rheumatoid arthritis with rheumatoid factor 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 systems involvementO ther rn long term care (current) drug therapy 4 Philippe Smith. [address], [place], [address], [place]. tel:[phone] Referring Provider: Sarah Epperson, [address], [place], [address]. tel:[phone] Office/Outpa tient Visit, Est [facility] , [address], [place], [address], [place] tel:[phone] [facility] , Rheumatoid arthritis (chief complaint)Mo nitor Chronic High Risk Meds (chief complaint) RA w/ rheumatoid factor of multiple sites w/o organ involvementO ther fdc (current) drug therapyOther dorsalgia 3 María Denis. [facility] [address], [place], [address], [place]. tel:[phone] , [facility] [address], [place], [address].Refer ring Provider: Adeel Tang, [facility] [address], [place], [address]. tel:[phone] Office/Outpa tient Visit, Est [facility] , [address], [place], [address], [place] tel:[phone] [facility] , Rheumatoid arthritis (chief complaint)Mo nitor Chronic High Risk Meds (chief complaint) RA w/ rheumatoid factor of multiple sites w/o organ involvementO ther fdc (current) drug therapy 2 María Denis. [facility] [address], [place], [address], [place]. tel:[phone] , [address], [place], [address].Refer ring Provider: Adeel Tang, [facility] [address], [place], [address]. tel:[phone] [facility] , [address], [place], [address], [place] [phone] [facility] , No Information 2 María Denis. [facility] [address], [place], [address], [place]. [phone] Referring Provider: Adeel Tang, [facility] [address], [place], [address]. tel:[phone] Office/Outpa tient Visit, Est [facility] , [address], [place], [address], [place] tel:[phone] [facility] , Rheumatoid arthritis (chief complaint)Mo nitor Chronic High Risk Meds (chief complaint) RA w/ rheumatoid factor of multiple sites w/o organ involvementO ther fdc (current) drug therapy 1 María Denis. [facility] [address], [place], [address], [place]. tel:[phone] , [facility] [address] [place] [address] [address], [place], [address].Refer ring Provider: Adeel Tang, [facility] [address], [place], [address]. tel:[phone] Office/Outpa tient Visit, Est [facility] , [address], [place], [address], [place] tel:[phone] [facility] , Rheumatoid arthritis (chief complaint)Mo nitor Chronic High Risk Meds (chief complaint) AnxietyRA w/ rheumatoid factor of multiple sites w/o organ involvementO ther rn long term care (current) drug therapy 0 María Denis. [facility] [address], [place], [address], [place]. [phone] , [address], [place], [address].Refer ring Provider: Adeel Tang, [facility] [address], [place], [address]. tel:[phone] Office/Outpa tient Visit, Est [facility] , [address], [place], [address], [place] tel:[phone] [facility] , Rheumatoid arthritis (chief complaint)Mo nitor Chronic High Risk Meds (chief complaint) AnxietyRA w/ rheumatoid factor of multiple sites w/o organ involvementO ther fdc (current) drug therapy 2-202 0 María Denis. [facility] [address], [place], [address], [place]. tel:[phone] , [address], [place], [address].Refer ring Provider: Adeel Tang, [facility] [address], [place], [address]. tel:[phone] Office/Outpa tient Visit, Est [facility] , [address], [place], [address], [place] tel:[phone] [facility] , Rheumatoid arthritis (chief complaint)Mo nitor Chronic High Risk Meds (chief complaint) AnxietyRA w/ rheumatoid factor of multiple sites w/o organ involvementO ther rn long term care (current) drug therapy 201 9 María Denis. [facility] [address], [place], [address], [place]. tel:[phone] , [address], [place], [address].Refer ring Provider: Adeel Tang, [facility] [address], [place], [address]. tel:[phone] Office/Outpa tient Visit, Est [facility] , [address], [place], [address], [place] tel:[phone] [facility] , Rheumatoid arthritis (chief complaint)Mo nitor Chronic High Risk Meds (chief complaint) AnxietyRA w/ rheumatoid factor of multiple sites w/o organ involvementO ther fdc (current) drug therapy Aug- 8 María Denis. [facility] [address], [place], [address], [place]. tel:[phone] , [facility] [address], [place], [address].Refer ring Provider: Adeel Tang, [facility] [address], [place], [address]. tel:[phone] Office/Outpa tient Visit, Est [facility] , [address], [place], [address], [place] tel:[phone] [facility] , Rheumatoid arthritis (chief complaint)Mo nitor Chronic High Risk Meds (chief complaint) RA w/ rheumatoid factor of multiple sites w/o organ involvementO ther fdc (current) drug therapyAnxie ty Nov- 8 María Denis. [facility] [address], [place], [address], [place]. tel:[phone] Specialist: Tim Carrasquillo, [facility] [address] [place] [address] [address], [place], [address]. tel:[phone] ring Provider: Adeel Tang, [facility] [address], [place], [address]. tel:[phone] Office/Outpa tient Visit, Est [facility] , [address], [place], [address], [place] tel:[phone] [facility] , Rheumatoid arthritis (chief complaint)Mo nitor Chronic High Risk Meds (chief complaint) RA w/ rheumatoid factor of multiple sites w/o organ involvementO ther rn long term care (current) drug therapy María Denis. [facility] [address], [place], [address], [place]. tel:[phone] Specialist: Tim Carrasquillo, [address], [place], [address]. tel:[phone] Provider: Adeel Tang, [facility] [address], [place], [address]. tel:[phone] [facility] , [address], [place], [address], [place] tel:[phone] [facility] , Rheumatoid arthritis (chief complaint)Mo nitor Chronic High Risk Meds (chief complaint) RA w/ rheumatoid factor of multiple sites w/o organ involvementO ther fdc (current) drug therapyPain in right shoulder María Denis. [facility] [address], [place], [address], [place]. tel:[phone] Specialist: Tim Carrasquillo, [address], [place], [address]. tel:[phone] Provider: Adeel Tang, [facility] [address], [place], [address]. tel:[phone] Office/Outpa tient Visit, Est [facility] , [address], [place], [address], [place] tel:[phone] [facility] , Rheumatoid arthritis (chief complaint)Mo nitor Chronic High Risk Meds (chief complaint) RA w/ rheumatoid factor of multiple sites w/o organ involvementO ther rn long term care (current) drug therapy 6 María Denis. [facility] [address], [place], [address], [place]. tel:[phone] Specialist: Tim Carrasquillo, [facility] [address], [place], [address]. tel:[phone] ring Provider: Adeel Tang, [facility] [address], [place], [address]. tel:[phone] Office/Outpa tient Visit, Est [facility] , [address], [place], [address], [place] tel:[phone] [facility] , Rheumatoid arthritis (chief complaint)Mo nitor Chronic High Risk Meds (chief complaint) RA w/ rheumatoid factor of multiple sites w/o organ involvementO ther fdc (current) drug therapyShoul velasquez joint pain María Denis. [facility] [address], [place], [address], [place]. tel:[phone] Specialist: Tim Carrasquillo, [facility] [address], [place], [address]. tel:[phone] ring Provider: Adeel Tang, [facility] [address], [place], [address]. tel:[phone] Office/Outpa tient Visit, Est [facility] , [address], [place], [address], [place] tel:[phone] [facility] , Rheumatoid arthritis (chief complaint)Mo nitor Chronic High Risk Meds (chief complaint) Rheumatoid arthritisThe rapeutic Drug MonitoringFi nger joint contracture 5 María Denis. [facility] [address], [place], [address], [place]. tel:[phone] Specialist: Tim Carrasquillo, [facility] [address] [place] [address] [address], [place], [address]. tel:[phone] ring Provider: Adeel Tang, [facility] [address], [place], [address]. tel:[phone] Office/Outpa tient Visit, Est [facility] , [address], [place], [address], [place] tel:[phone] [facility] , Rheumatoid Arthritis (chief complaint) Rheumatoid ArthritisThe rapeutic Drug MonitoringPa in in joint involving lower leg Dec-0 4 María Denis. [facility] [address], [place], [address], [place]. tel:[phone] Specialist: Tim Carrasquillo, [facility] [address], [place], [address]. tel:[phone] Provider: Adeel Tang, [facility] [address], [place], [address]. tel:[phone] Office/Outpa tient Visit, Est [facility] , [address], [place], [address], [place] tel:[phone] [facility] , Rheumatoid Arthritis (chief complaint) Rheumatoid ArthritisThe rapeutic Drug MonitoringPa in in joint involving lower legPain in joint involving shoulder regionUnspec ified disorder of skin and subcutaneous tissue Channing-0 2201 4 María Denis. [facility] [address], [place], [address], [place]. tel:[phone] Specialist: Tim Carrasquillo [facility] [address], [place], [address]. tel:[phone] ring Provider: Adeel Tang, [facility] [address], [place], [address]. tel:[phone] Office/Outpa tient Visit, Est [facility] , [address], [place], [address], [place] tel:[phone] [facility] , Rheumatoid Arthritis (chief complaint) Rheumatoid ArthritisThe rapeutic Drug MonitoringPa in in joint involving shoulder region María Denis. [facility] [address], [place], [address], [place]. tel:[phone] Specialist: Tim Carrasquillo, [facility] [address], [place], [address]. tel:[phone] ring Provider: Adeel Tang, [facility] [address], [place], [address]. tel:[phone] Office/Outpa tient Visit, Est [facility] , [address], [place], [address], [place] tel:[phone] [facility] , Rheumatoid Arthritis (chief complaint) Rheumatoid ArthritisThe rapeutic Drug MonitoringLO NG-TERM (CURRENT) USE OF STEROIDS 3 María Denis. [facility] [address], [place], [address], [place]. tel:[phone] Specialist: Tim Carrasquillo, [facility] [address], [place], [address]. tel:[phone] ring Provider: Adeel Tang, [facility] [address], [place], [address]. tel:[phone] Office/Outpa tient Visit, Est [facility] , [address], [place], [address], [place] tel:[phone] [facility] , Rheumatoid Arthritis (chief complaint) Rheumatoid ArthritisThe rapeutic Drug MonitoringLO NG-TERM (CURRENT) USE OF STEROIDSCoug h 3 María Denis. [facility] [address], [place], [address], [place]. tel:[phone] Specialist: Tim Carrasquillo, [address], [place], [address]. tel:[phone] ring Provider: Adeel Tang, [facility] [address], [place], [address]. tel:[phone] Office/Outpa tient Visit, Est [facility] , [address], [place], [address], [place] tel:[phone] [facility] , Rheumatoid Arthritis (chief complaint) Rheumatoid ArthritisThe rapeutic Drug MonitoringLO NG-TERM (CURRENT) USE OF STEROIDS 3 María Denis. [facility] [address], [place], [address], [place]. tel:[phone] Specialist: Tim Carrasquillo, [address], [place], [address]. tel:[phone] ring Provider: Adeel Tang, [facility] [address], [place], [address]. tel:[phone] Office/Outpa tient Visit, Est [facility] , [address], [place], [address], [place] tel:[phone] [facility] , Rheumatoid Arthritis (chief complaint) Rheumatoid ArthritisThe rapeutic Drug MonitoringUl cer of ankle 3 María Adeel. [facility] [address], [place], [address], [place]. tel:[phone] Specialist: Tim Carrasquillo, [facility] [address] [place] [address] [address], [place], [address]. tel:[phone] ring Provider: Adeel Tang, [facility] [address], [place], [address]. tel:[phone] Office/Outpa tient Visit, Est [facility] , [address], [place], [address], [place] tel:[phone] [facility] , Rheumatoid Arthritis (chief complaint) Rheumatoid ArthritisThe rapeutic Drug MonitoringLO NG-TERM (CURRENT) USE OF STEROIDS Aug- 2 María Adeel. [facility] [address], [place], [address], [place]. tel:[phone] Specialist: Tim Carrasquillo, [facility] [address] [place] [address] [address], [place], [address]. tel:[phone] ring Provider: Adeel Tang, [facility] [address], [place], [address]. tel:[phone] Office/Outpa tient Visit, Est [facility] , [address], [place], [address], [place] tel:[phone] [facility] , Rheumatoid Arthritis (chief complaint) Rheumatoid ArthritisLON G-TERM (CURRENT) USE OF STEROIDS Nov-0 2-201 2 María Denis. [facility] [address], [place], [address], [place]. tel:[phone] Specialist: Tim Carrasquillo, [facility] [address], [place], [address]. tel:[phone] ring Provider: Adeel Tang, [facility] [address], [place], [address]. tel:[phone] Office/Outpa tient Visit, New [facility] , [address], [place], [address], [place] tel:[phone] [facility] , Pulmonary infiltrates (chief complaint) Unspecified inflammatory polyarthropa thyLONG-TERM (CURRENT) USE OF STEROIDS 2 María Denis. [facility] [address], [place], [address], [place]. tel:[phone] Specialist: Tim Carrasquillo, [facility] [address], [place], [address]. tel:[phone] Provider: Adeel Tang, [facility] [address], [place], [address]. tel:[phone] Family History Family Member Type Diagnosis Age At Onset Sister Problem (finding) malignant neoplasm of o vary Father Problem (finding) cancer of colon Immunizations Vaccine Date Status Comments COVID-19 [employer] administered S ource: Other Provider Payers Payer name Insurance type Covered democrat ID Authoriza tion(s) [facility] [id number] Social History Type Description Quantity Date Captured [...] safety monitoring ophthalmologic evaluation. Related to Other rn long term care (current) drug therapy Continue hydroxychlo roquine 400 [...] safety monitoring ophthalmologic evaluation. Related to Other rn long term care (current) drug therapy Continue hydroxychlo roquine 400 [...] performed every 3 months. Related to Other rn long term care (current) drug therapy Continue input as ne eded with her primary care provider or psychologist/psychiatrist. Related to Anxiety Continue current ant i-rheumatic medications unchanged.I will consider PFT and potential update of chest imaging. 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 Related to Other rn long term care (current) drug therapy I again urged patien [...] performed every 3 months. Related to Other rn long term care (current) drug therapy I urged patient to u pdate her evaluation with her primary care provider or a psychologist/psychiatrist. Related to Anxiety Continue current ant i-rheumatic medications unchanged.I will strongly consider PFT and potential update of chest imaging.The patient may be moving to [facility] if her gets the new job that they anticipate. 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 Related to Other rn long term care (current) drug therapy Continue current ant i-rheumatic medications unchanged.The patient may be moving to [facility] if her gets the new job that they anticipate. 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 Related to Other fdc (current) drug therapy I encouraged the pat [...] Related to Other fdc (current) drug therapy After discussion of potential [...] of diagnosis of positive ANCA titer with MI-3 positivity which eventually turned negative. She does [...] get it under better control. assessment Other rn long term care (current) drug t herapy impression At this [...]
--- OUTSIDE RECORDS SUMMARY | 2025-01-20 16:16 | XMS_ITS | Clinical Summary ---
Author Organization [facility] Address [address] [place] [address]. 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 Gender Identity Not on file Sexual Orientation [...] Octavia Hammond Medical Devices Implanted Type Area Behavioral Services Tech Device Identifier Shelf Expiration Date Model / Serial / Lot Insert Actb 42mm 28mm E Hip X3 Adm Strl Lf [facility] 7236-2-848 - [id number] Implanted:Qty: 1 on 04/08/2023 by Fazal Ramirez MD at [facility] Metallic Hardware/An chor Left: Hip [employer] [id number] 10/07/2027 7236-2-8 48 / / [id number] Trident Ii Tritanium Clusterhole 52e - [id number] Implanted:Qty: 1 on 03/25/2023 by Cj Chen MD at [facility] Total Joint Component/I nsert Left: Hip [employer] 12/29/2027 702-04-5 2E / / [id number] A Insert El 36mm 0deg X3 723-00-36e - [id number] Implanted:Qty: 1 on 03/25/2023 by Cj Chen MD at [facility] Total Joint Component/I nsert Left: Hip [employer] 12/24/2027 723-00-3 6E / / [id number] Imp Stem Fem Rstrtn Mod Bowed Conical [id number] 6276-7-219 - [id number] Implanted:Qty: 1 on 04/08/2023 by Fazal Ramirez MD at [facility] Total Joint Component/I nsert Left: Hip [employer] [id number] 02/14/2027 6276-7-2 19 / / [id number] Imp Insert Acet Strk Mdm Cocr Hip 0deg 42mm Sz E 626-00-42e - [id number] Implanted:Qty: 1 on 04/08/2023 by Fazal Ramirez MD at [facility] Total Joint Component/I nsert Left: Hip [employer] [id number] 01/13/2028 626-00-4 2E / / [id number] Imp Stem Fem Mod Rev Hip Prox Body/Ailey 19mm +10 6276-1-119 - [id number] Implanted:Qty: 1 on 04/08/2023 by Fazal Ramirez MD at [facility] Total Joint Component/I nsert Left: Hip [employer] [id number] 08/15/2024 6276-1-1 [id number] Imp Head Femoral Strk Biolox Delta Ceramic 28mm +4mm - [id number] Implanted:Qty: 1 on 04/08/2023 by Fazal Ramirez MD at [facility] Total Joint Component/I nsert Left: Hip [employer] [id number] 10/31/2027 6570-0-2 / / [id number] Fibertape Cerclage, 2mm, 48 Implanted:Qty: 3 on 04/08/2023 by Fazal Ramirez MD at [facility] Left: Hip [employer] 06/04/2027 AR-7268 / / [id number] Fibertape Cerclage, 2mm, 48 Implanted:Qty: 1 on 04/08/2023 by Fazal Ramirez MD at [facility] Left: Hip [employer] 01/03/2028 AR-7268 / [id number] / Fibertape Cerclage, 2mm, 48 Implanted:Qty: 1 on 04/08/2023 by Fazal Ramirez MD at [facility] Left: Hip [employer] 11/03/2027 AR-7268 / / [id number] Explanted Type Area Behavioral Services Tech Device Identifier Shelf Expiration Date Model / Serial / Lot Imp Stem Femoral Hip Strk Accolade Ii 132deg Sz 5 6155-2480 - [id number] Implanted:Qty: 1 on 03/25/2023 by Cj Chen MD at [facility] Explanted:Qty: 1 on 04/08/2023 by Fazal Ramirez MD at [facility] Total Joint Component /Insert Left: Hip [employer] 03/03/2027 0386-5659 / / [id number] Imp Head Femoral Strk Biolox Delta Ceramic 36mm +2.5mm - [id number] Implanted:Qty: 1 on 03/25/2023 by Cj Chen MD at [facility] Explanted:Qty: 1 on 04/08/2023 by Fazal Ramirez MD at [facility] Total Joint Component /Insert Left: Hip [employer] 12/07/2027 6570-0-536 / / [id number] 6.5 Mm Cannulated Screws, 16mm Thread Length 80mm Implanted:Qty: 3 on 01/25/2021 by Cj Chen MD at [facility] Explanted:Qty: 3 on 03/25/2023 by Cj Chen MD at [facility] Left: Hip SYNTHES 408.411 24 JAN 2021 Titanium Washer, 13.0 Mm Implanted:Qty: 3 on 01/25/2021 by Cj Chen MD at [facility] Explanted:Qty: 3 on 03/25/2023 by Cj Chen MD at [facility] Left: Hip SYNTHES 419.99 24 JAN 2021 8002 Procedures Procedure Name Priority Date/Time Associated Diagnosis Comments GLUCOSE Routine 04/10/2023 7:07 AM CDT COLONOSCOPY - HIM SCAN 10/25/2022 12:00 AM SHEET TURNER from Last 3 Months or Most Recently Relevant to Health Maintenance Results * (ABNORMAL) Glucose (04/10/2023 7:07 AM CDT) Glucose 108(H) 70 - 99 mg/dL 04/10/2023 7:36 AM CDT LABORATORY Blood STRUCTURE OF RIGHT UPPER LIMB / Unknown Venipuncture / Unknown 04/10/2023 7:07 AM CDT 04/10/2023 7:12 AM CDT Jonathan Linn MD LAB - BLOOD ORDERABLES Final Result LABORATORY [facility] [address] Lab (1st floor, no room number) [place] [address], [facility] [phone] * COLONOSCOPY - HIM SCAN (10/25/2022 12:00 AM SHEET TURNER) 10/25/2022 Provider Outside PROCEDURES Final Result from Last 3 Months or Most Recently Relevant to Health Maintenance Additional Health Concerns Active Problems Noted Date Diagnosed Date Total Joint Replacement Hip Pathway 03/15/2023 Insurance [facility] Advance Directives For more information, please contact: [phone] * Full Code (Latest Code Status on [...] carmen nt/ legal decision maker Care Teams Reed Or Wind Instrument Repairer Relationship Specialty Start Date End Date Case Gao [address] [facility] [place] [address] PCP - General Family Medicine 01/25/21
== END 2025-01-18 12:05 | disposition home or self-care (01) ==
LOC: ED 10:46 → SS 11:01 → ED 11:02
PROVIDERS: Emergency Provider Family Medicine; PCP Family Medicine
DX: M62.89 Other specified disorders of muscle (principal); F41.9 Anxiety disorder, unspecified; K59.00 Constipation, unspecified; R00.2 Palpitations
CPT/HCPCS: 36415; 74019; 80050; 80053; 80306; 82077; 82248; 82550; 82803; 83605; 83690; 83735; 83880; 84443; 84484; 85025; 86140; 93005; 94761; 99284; 99285